=== PATIENT | male | born 1940 | race Caucasian/White ===

== ENCOUNTER → 2018-04-03 07:55 | Outpatient (CLI) | payer MEDICARE, BC, SELFPAY ==
--- NOTE | 2018-04-03 08:09 | RAD_ITS ---
STUDY: X-RAY - ESOPHAGUS (BARIUM SWALLOW) WITH FLUOROSCOPY REASON FOR EXAM: Male, 78 years old. 2 week history of dysphagia. The patient has a tracheostomy tube in situ. TECHNIQUE: 15 view(s) of the esophagus were obtained following swallowing of barium. FLUOROSCOPY TIME (if supplied): (0:57) minutes/seconds COMPARISON: None. FINDINGS: There is no demonstrated esophageal foreign body. There is no demonstrated stricture or mucosal abnormality. There is a small hiatal hernia of the fundus of the stomach. The patient was unable to swallow the 12 mm tablet of barium. There is atherosclerotic tortuosity of the aortic arch and descending thoracic aorta. Normal visualized pulmonary parenchyma. There are diffuse degenerative changes of the visualized thoracic spine. RAD/Esophagus Only IMPRESSION: Small hiatal hernia without gastroesophageal reflux. Electronically Signed: Gurinder De Jesus MD at 9:04 EST Tel [phone], Service support ,
--- NOTE | 2018-04-03 10:54 | PCM.OP.BLANK ---
Operative Report Date of Procedure: 04/03/18 Operative procedure excision cyst right epstein Preoperative diagnosis cyst right chin Operative diagnosis sebaceous cyst right chin Anesthesia 1% Xylocaine plain mixed with epinephrine Procedure the patient was placed supine on the operating room table. After the face had been prepped with Betadine solution sterile head drapes were applied and the patient draped in the usual sterile manner. The cyst was identified inferior to the right lower lip and measured 1.5 x 1.5 cm in dimension. Percent Xylocaine plain mixed with epinephrine was infiltrated around the lesion. A horizontal and elliptical incision was outlined over the lesion and skin and subcutaneous tissues were incised and the cyst was dissected free from the surrounding tissues. Bleeding was controlled with the Bovie. The subcutaneous tissues were approximated with interrupted sutures of 5-0 chromic catgut. The skin edges were approximated with interrupted sutures of 6-0 nylon. A meticulous closure was obtained. Triple antibiotic was applied over the incision site and the procedure was considered terminated. The patient was [facility] to the [facility] in satisfactory condition. Armando Gutierrez MD
--- NOTE | 2018-04-03 10:58 | OP.PCM_ITS ---
Operative Report Date of Procedure: 04/03/18 Operative procedure excision cyst right epstein Preoperative diagnosis cyst right chin Operative diagnosis sebaceous cyst right chin Anesthesia 1% Xylocaine plain mixed with epinephrine Procedure the patient was placed supine on the operating room table. After the face had been prepped with Betadine solution sterile head drapes were applied and the patient draped in the usual sterile manner. The cyst was identified inferior to the right lower lip and measured 1.5 x 1.5 cm in dimension. Percent Xylocaine plain mixed with epinephrine was infiltrated around the lesion. A horizontal and elliptical incision was outlined over the lesion and skin and subcutaneous tissues were incised and the cyst was dissected free from the surrounding tissues. Bleeding was controlled with the Bovie. The subcutaneous tissues were approximated with interrupted sutures of 5-0 chromic catgut. The skin edges were approximated with interrupted sutures of 6- 0 nylon. A meticulous closure was obtained. Triple antibiotic was applied over the incision site and the procedure was considered terminated. The patient was returned to the [facility] unit in satisfactory condition. Armando Gutierrez MD
== END ==
LOC: RAD 08:04
PROVIDERS: Family Provider Family Medicine; PCP Family Medicine; Referring Provider Otolaryngology Otolaryngology/Facial Plastic Surgery; Visit Provider Otolaryngology Otolaryngology/Facial Plastic Surgery
DX: K44.9 Diaphragmatic hernia without obstruction or gangrene (principal); R13.10 Dysphagia, unspecified
CPT/HCPCS: 74220

== ENCOUNTER → 2018-05-25 15:40 | Outpatient (CLI) | payer MEDICARE, BC, SELFPAY ==
[2016-08-18 18:22] VITALS: BMI 31.6
== END ==
PROVIDERS: Family Provider Family Medicine; PCP Family Medicine; Referring Provider Otolaryngology; Visit Provider Otolaryngology
DX: J40 Bronchitis, not specified as acute or chronic (principal)
CPT/HCPCS: 87070; 87077; 87186; 87205

== ENCOUNTER → 2018-06-19 11:01 | Outpatient (CLI) | payer MEDICARE, BC, SELFPAY ==
[2016-08-18 18:22] VITALS: BMI 31.6
--- NOTE | 2018-06-19 11:15 | RAD_ITS ---
STUDY: X-RAY CHEST REASON FOR EXAM: Male, 78 years old. Cough. TECHNIQUE: PA and lateral views of the chest. COMPARISON: Comparison is made with prior examination dated August 20, 2016. FINDINGS: Stable elevation of the left hemidiaphragm with pleural parenchymal changes at the left lung base. Scattered calcified granulomas. There is no demonstrated pleural abnormality. Normal size heart. Normal mediastinum and jevon. Normal visualized pulmonary arteries. There is atherosclerotic calcification of the aortic arch with tortuosity. There are diffuse degenerative changes of the visualized thoracic spine. Normal visualized ribs, clavicles, and shoulders. There is no demonstrated abnormality of the visualized soft tissue structures of the upper abdomen. RAD/Chest PA and Lateral IMPRESSION: Stable pleural parenchymal changes at the left lung base with elevation of the left hemidiaphragm. Electronically Signed: Gurinder De Jesus MD at 11:28 EST , Service support ,
== END ==
PROVIDERS: Family Provider Family Medicine; PCP Family Medicine; Referring Provider Otolaryngology Otolaryngology/Facial Plastic Surgery; Visit Provider Otolaryngology Otolaryngology/Facial Plastic Surgery
DX: R05 Cough (principal); Z90.02 Acquired absence of larynx
CPT/HCPCS: 71046; 87070; 87205

== ENCOUNTER 2018-06-28 05:08 | Emergency (ER) | payer MEDICARE, BC, SELFPAY ==
[2018-06-28] VITALS (7 sets, daily range): BP systolic 130–148; BP diastolic 89–101; PULSE 64–66; RESP 18–26; TEMP 37.2; O2SAT 88–95; BMI 31.6
--- NOTE | 2018-06-28 05:35 | EKG12_ITS ---
Test Reason : CP Blood Pressure : / mmHG Vent. Rate : 059 BPM Atrial Rate : 057 BPM P-R Int : 000 ms QRS Dur : 104 ms QT Int : 398 ms P-R-T Axes : 000 065 056 degrees QTc Int : 394 ms Atrial fibrillation with slow ventricular response Low voltage QRS Abnormal ECG Confirmed by KASSIDY DIETZ, AMBER ([id number]), video effects editor SAVANNAH OSBORNE ([id number]) on 07/03/2018 11:30:10 AM Referred By: RADHA Confirmed By:AMBER YI MD
--- NOTE | 2018-06-28 05:35 | RAD_ITS ---
STUDY: X-RAY CHEST REASON FOR EXAM: Male, 78 years old. Chest pain and shortness of breath. TECHNIQUE: PA and lateral views of the chest. COMPARISON: June 19, 2018 FINDINGS: Cardiac monitoring leads are present. The lungs are less expanded than they were. There is mild elevation of left hemidiaphragm. There is a persistent nodular opacity at the left lung base similar to the previous study. This nodule measures approximately 2.5 cm in greatest dimension. Bronchovascular markings are prominent in both lungs. There is no demonstrated pleural abnormality. There is borderline cardiomegaly. There are calcified mediastinal and hilar lymph nodes. There is prominence of the pulmonary hilar arteries without peripheral pulmonary vascular congestion, suggesting pulmonary hypertension. Normal visualized aortic arch and descending thoracic aorta. There are diffuse degenerative changes of the visualized thoracic spine. Normal visualized ribs, clavicles, and shoulders. There is no demonstrated abnormality of the visualized soft tissue structures of the upper abdomen. RAD/Chest PA and Lateral IMPRESSION: 1. Cardiomegaly and mild pulmonary congestion. 2. Persistent left basilar pulmonary nodule. Electronically Signed: Bozena Lentz MD at 6:30 EST , Service support ,
[2018-06-28 05:55] LABS: Absolute Lymphocyte Count 0.99 X10^3/ul (0.83-4.51); Absolute Neutrophil Count 5.9 X10^3/uL (2.0-7.7); Basophil# 0.01 X10^3/uL; Basophil% 0.1 % (0-1); Eosinophil# 0.03 X10^3/uL; Eosinophils% 0.4 % (0-5); Hematocrit 42.3 % (40-54); Hemoglobin 14.8 g/dl (13.0-16.5); Lymphocyte # 0.99 X10^3/ul (4.0); Lymphocyte % 12.8 % (19-41); Mean Corpuscular Hgb 33.7 pg (27.0-32.0); Mean Corpuscular Volume 96.4 fL (80-94); Mean Platelet Vol. 12.5 fl (6.2-12.0); Monocyte# 0.74 X10^3/uL; Monocyte% 9.6 % (0-10); Neutrophil # 5.93 X10^3/uL (2.7-7.7); Neutrophil % 76.8 % (47-70); Platelet Count 119 K/mm3 (150-450); RBC Distribution Width CV 13.4 % (11.6-14.6); RBC Distribution Width SD 46.3 fl (35.1-43.9); Red Blood Count 4.39 M/mm3 (4.6-6.2); White Blood Count 7.7 K/mm3 (4.4-11.0)
[2018-06-28] MEDS: Albuterol 2.5 MG/3 ML VIAL.NEB. INHALATION (06:00)
[2018-06-28] MEDS: Ipratropium/Albuterol Sulfate 3 ML AMPUL.NEB INHALATION (06:00)
[2018-06-28 06:02] LABS: POSITIVE COUNT NO; POSITIVE DIFFERENTIAL NO; POSITIVE MORPHOLOGY NO
[2018-06-28 06:06] LABS: Anion Gap 12 (5-15); BUN 44 mg/dL (7-18); BUN/Creat Ratio 41.5 RATIO (10-20); Calcium,Total 9.9 mg/dL (8.5-10.1); Chloride 98 mmol/L (98-107); Creatinine, Serum 1.06 mg/dL (0.70-1.30); EST Glomerular Filtration Rate 71 mL/min (>60); Est Glom Filt Rate - Afr Amer 86 mL/min (>60); Estimated Creatinine Clearance 61.01 ml/min; Glucose 127 mg/dL (74-106); Potassium 4.6 mmol/L (3.5-5.1); Sodium Level 134 mmol/L (136-145)
[2018-06-28] MEDS: MethylPREDNISolone 125 MG/2 ML Vial IV (06:07)
--- NOTE | 2018-06-28 06:40 | ED.DCSUM_ITS ---
- ER Visit Summary Date of Service: 06/28/18 Chief Complaint: Chest pain History of Present Illness: The patient is a 78 M who presents with chest pain. It began yesterday. He describes it as a burning mostly on the left side of the chest. He currently rates it as at 8. His pain is worse with coughing or palpation. He does note a chronic cough. He states he feels a little short of breath. This feels similar to episodes of bronchitis. No diabetes. He is not a smoker currently. He does have a history of throat cancer and is status post laryngectomy with tracheostomy. No diaphoresis no nausea or vomiting. Physical Examination: Respiratory rate 26 vitals otherwise unremarkable No distress resting comfortably Moist mucous membranes Heart regular rhythm tachycardia Decreased air exchange with diffuse inspiratory and expiratory wheezing Test Results: Atrial fibrillation at a rate of 59. Labs notable only for platelets 119. BUN is 44 with a glucose of 127. Troponin is negative. Chest x-ray shows cardiomegaly with mild pulmonary congestion. Emergency Department Course and Treatment: Patient was given albuterol and Atrovent aerosols as well as IV Solu-Medrol. He actually feels much better on reevaluation. Pain is resolved. I suspect this is all related to bronchitis and chest wall pain related to cough and may be a component of pleurisy. He will be placed on prednisone. He understands to return for new or worsening symptoms. His heart score is 3. Treatment Plan: [] Disposition: Discharge Impression: Bronchitis Atypical chest pain This note was generated with [employer] dictation software. It may contain incorrect words, spelling, and punctuation that were not noted in review of the chart prior to signing ED Disposition - Plan for ED Patient: Referrals: Nav Mejia MD [Primary Care Provider] -
--- NOTE | 2018-06-28 06:40 | ED.DEP ---
ED Disposition - Plan for ED Patient: Instructions: Acute Bronchitis, ED Chest Pain Atypical Unkn Cause Prescriptions: predniSONE tablet 60 mg PO DAILY #15 tab Referrals: Nav Mejia MD [Primary Care Provider] -
== END 2018-06-28 09:04 | disposition home or self-care (01) ==
PROVIDERS: Emergency Provider Emergency Medicine; Family Provider Family Medicine; PCP Family Medicine
DX: J40 Bronchitis, not specified as acute or chronic (principal); R07.89 Other chest pain; Z93.0 Tracheostomy status; Z85.818 Personal history of malignant neoplasm of other sites of lip, oral cavity, and pharynx; Z87.891 Personal history of nicotine dependence; Z79.899 Other long term (current) drug therapy
CPT/HCPCS: 71046; 80048; 84484; 85025; 93005; 94640; 96374; 99285; J7030; A4216

== ENCOUNTER 2018-09-07 10:13 | Emergency (ER) | payer MEDICARE, BC, SELFPAY ==
[2018-06-28 05:09] VITALS: BMI 31.6
[2018-09-07 10:15] VITALS: BP 175/92; PULSE 65; RESP 18; TEMP 36.7; O2SAT 96; BMI 30.2
--- NOTE | 2018-09-07 10:31 | RAD_ITS ---
STUDY: X-RAY - LEFT ELBOW REASON FOR EXAM: Male, 78 years old. Pain. Swelling. Fall. TECHNIQUE: 3 view(s) of the elbow. COMPARISON: None. FINDINGS: Left elbow intact with chronic slightly displaced bone fragment at the medial epicondyle. Spurring at the lateral upper condyle. No dislocation. No acute cortical destruction. Soft tissue laceration with soft tissue gas. Linear radiopaque foreign body at the lateral soft tissues measuring 4 mm. Extensive soft tissue swelling posteriorly. Small volume elbow joint effusion. RAD/Elbow min 3 Views IMPRESSION: Soft tissue laceration with soft tissue gas, extensive soft tissue swelling and small volume joint effusion Left elbow are intact with chronic slightly displaced bone fragment at the medial epicondyle Lateral epicondyle spurring Electronically Signed: Vinicio Dixon DO at 12:08 EDT Tel , Service support ,
--- NOTE | 2018-09-07 10:32 | ED.VIS.GEN ---
History of Present Illness Chief Complaint: Fall Informant: Patient, PCP Onset: Today Context: Sudden Onset Timing: Continuous Quality: Pain, redness and swelling Location: Left elbow Current Severity: Mild Maximum Severity: Moderate Worsened by: Movement and palpation Relieved by: Nothing Associated Symptoms: No constitutional symptoms Narrative: Patient is an elderly miigh-[id number]-pmnfqejm male who fell Monday evening. He landed on ceramic tile. He sustained a laceration over the left elbow. He was seen yesterday at the [facility] urgent care and sutured by physician. He was concerned because tetanus was not administered. Last tetanus shot was 2011. He returns today because of redness, swelling and pain. He was prescribed cephalexin. Patient and family acknowledge no x-rays were taken. He also reports pain left wrist. Prior similar symptoms: Yes Recent Illness/Hospitalization: Yes - Past Medical History (1) Alcohol dependence Status: Chronic Comment: beer daily (2) COPD (chronic obstructive pulmonary disease) Status: Chronic (3) HLD (hyperlipidemia) Status: Chronic (4) HTN (hypertension) Status: Chronic (5) PVD (peripheral vascular disease) Status: Chronic Past Medical History - Allergies and Home Meds Allergies/Adverse Reactions: Allergies UNSURE OF ALLERGIES Allergy (Uncoded 09/07/18 10:15) Unknown Primary Care Physician: Nav Mejia MD [Primary Care Provider] - Prior records reviewed: Yes Surgical History: - - Normal aortic aneurysm repair, 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 He denies any family history of cardiovascular disease. Paternal Family History: Reports: Cancer - Father of lung cancer Review of Systems General: Denies: Chills, Fever, Malaise, Sweats, Weight loss Eyes: Denies: Visual changes - bilaterally, Blurred Vision - bilaterally, Diplopia ENT: Denies: Bilateral ear pain, Rhinorrhea, Sore throat Cardiovascular: Denies: Chest pain, Palpitations, Heart racing Respiratory: Denies: Dyspnea, Cough, Dyspnea on exertion Gastrointestinal: Reports: Abdominal pain, Nausea, Vomiting Genitourinary: Denies: Dysuria, Hematuria, Frequency Musculoskeletal: Reports: Myalgias, Extremity Pain Skin: Reports: Rash, Wounds Neurological: Denies: Headache, Weakness, Parasthesia, Numbness Endocrine: Denies: Polyuria, Polydipsia Hematologic: Denies: Easy bruising, Easy bleeding Allergy: Denies: Uticaria, Swelling of the mouth, Swelling of the tongue Physical Exam Vital Signs/Narrative: Vital Signs Temp Pulse Resp BP Pulse Ox 09/07/18 10:15 98.1 F 65 18 175/92 H 96 Inital Vital Signs reviewed: Yes General: Well nourished, Well developed, No Acute Distress Head: Normocephalic, Atraumatic Eyes: Perrl, EOMI ENT: Moist mucous membranes, No rhinorrhea Neck: Supple, Nontender Cardiovascular: Regular rate, Regular rhythm, No murmurs Respiratory: No distress, CTA bilaterally, Chest nontender Back: Nontender, Normal Inspection Extremities: Nontender, No edema Skin: Normal color, No rash Neurological: Alert, Oriented x3, Cranial nerves II-XII grossly intact, Normal Strength, Normal Sensation Psychological: Normal affect, Normal Mood Diagnostic/Tx/Re-eval Chest X-Ray - ED: 2 View, Read by ED Physician Three-view x-ray of the elbow reveals no acute fracture. There is subcutaneous air noted from the laceration. No foreign bodies noted. There is no hematoma noted. Impressions Elbow X-Ray 09/07/18 10:31 IMPRESSION: Soft tissue laceration with soft tissue gas, extensive soft tissue swelling and small volume joint effusion Left elbow are intact with chronic slightly displaced bone fragment at the medial epicondyle Lateral epicondyle spurring Electronically Signed: Vinicio Dixon DO at 12:08 EDT Tel , Service support , 09/07/18 10:31 Elbow min 3 Views [RAD] Stat 09/07/18 11:05 Wound Abcess - Elbow Gram Stain - Final Laboratory Results 09/07/18 09/07/18 10:43 10:43 WBC 13.4 H RBC 4.77 Hgb 16.0 Hct 45.4 MCV 95.2 H MCH 33.5 H MCHC 35.2 RDW 13.8 RDW Differential 47.8 H Plt Count 113 L MPV 11.9 Immature Gran % (Auto) 0.400 Neut % (Auto) 77.3 H Lymph % (Auto) 8.3 L [place] % (Auto) 13.7 H Eos % (Auto) 0.2 Baso % (Auto) 0.1 Absolute Neuts (auto) 10.3 H Absolute Lymphs (auto) 1.11 Total Counted Not Reportable Differential Comment COMMENT Diff Path Review Reviewed Sodium 134 L Potassium 3.8 Chloride 98 Carbon Dioxide 28.0 Anion Gap 8 BUN 24 H Creatinine 1.09 Estim Creat Clear Calc 59.33 Est GFR (MDRD) Af Amer 84 Est GFR (MDRD) Non-Af 69 BUN/Creatinine Ratio 22.0 H Glucose 141 H Calcium 8.9 - Medical Decision Making The wound was opened with slightly cloudy fluid noted most likely from the olecranon bursa. There is evidence of cellulitis. There is no lymphangitis. There is no axillary lymphadenopathy noted. We will obtain blood work to determine patient meets sepsis criteria. X-ray was obtained to evaluate for foreign body. Procedures Procedure(s): Sutures were removed. The wound was opened. Serous cloudy fluid/bursa fluid flowed freely from wound. The area was anesthetized. The edges which were contused and discolored was excised. The cavity was irrigated with 250 cc of normal saline. Wick was placed. Patient is present cephalexin. Will add Bactrim for better staph coverage. Dressing was applied per nursing staff. ED Disposition - Plan for ED Patient: Disposition: Home or Assisted Living Diagnosis: Cellulitis of left elbow, Olecranon bursitis of left elbow Instructions: ED Infec Skin Cellulitis Prescriptions: Smz/Tmp Ds [Bactrim Ds] 1 tablet PO BID #14 tablet Referrals: Nav Mejia MD [Primary Care Provider] - Additional Instructions: 1. Do not remove dressing until seen on Monday. 2. Continue taking cephalexin. You were prescribed an additional antibiotic. 3. Your prescription was electronically transmitted to your designated pharmacy of choice.
--- NOTE | 2018-09-07 10:37 | ED.DCSUM_ITS ---
History of Present Illness Chief Complaint: Fall Informant: Patient, PCP Onset: Today Context: Sudden Onset Timing: Continuous Quality: Pain, redness and swelling Location: Left elbow Current Severity: Mild Maximum Severity: Moderate Worsened by: Movement and palpation Relieved by: Nothing Associated Symptoms: No constitutional symptoms Narrative: Patient is an elderly xviye-foou-djtemkys male who fell Monday evening. He landed on ceramic tile. He sustained a laceration over the left elbow. He was seen yesterday at the [facility] urgent care and sutured by physician. He was concerned because tetanus was not administered. Last tetanus shot was 2011. He returns today because of redness, swelling and pain. He was prescribed cephalexin. Patient and family acknowledge no x-rays were taken. He also reports pain left wrist. Prior similar symptoms: Yes Recent Illness/Hospitalization: Yes - Past Medical History (1) Alcohol dependence Status: Chronic Comment: beer daily (2) COPD (chronic obstructive pulmonary disease) Status: Chronic (3) HLD (hyperlipidemia) Status: Chronic (4) HTN (hypertension) Status: Chronic (5) PVD (peripheral vascular disease) Status: Chronic Past Medical History - Allergies and Home Meds Allergies/Adverse Reactions: Allergies UNSURE OF ALLERGIES Allergy (Uncoded 09/07/18 10:15) Unknown Primary Care Physician: Nav Mejia MD [Primary Care Provider] - Prior records reviewed: Yes Surgical History: - - Normal aortic aneurysm repair, 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 He denies any family history of cardiovascular disease. Paternal Family History: Reports: Cancer - Father of lung cancer Review of Systems General: Denies: Chills, Fever, Malaise, Sweats, Weight loss Eyes: Denies: Visual changes - bilaterally, Blurred Vision - bilaterally, Diplopia ENT: Denies: Bilateral ear pain, Rhinorrhea, Sore throat Cardiovascular: Denies: Chest pain, Palpitations, Heart racing Respiratory: Denies: Dyspnea, Cough, Dyspnea on exertion Gastrointestinal: Reports: Abdominal pain, Nausea, Vomiting Genitourinary: Denies: Dysuria, Hematuria, Frequency Musculoskeletal: Reports: Myalgias, Extremity Pain Skin: Reports: Rash, Wounds Neurological: Denies: Headache, Weakness, Parasthesia, Numbness Endocrine: Denies: Polyuria, Polydipsia Hematologic: Denies: Easy bruising, Easy bleeding Allergy: Denies: Uticaria, Swelling of the mouth, Swelling of the tongue Physical Exam Vital Signs/Narrative: Vital Signs Temp Pulse Resp BP Pulse Ox 09/07/18 10:15 98.1 F 65 18 175/92 H 96 Inital Vital Signs reviewed: Yes General: Well nourished, Well developed, No Acute Distress Head: Normocephalic, Atraumatic Eyes: Perrl, EOMI ENT: Moist mucous membranes, No rhinorrhea Neck: Supple, Nontender Cardiovascular: Regular rate, Regular rhythm, No murmurs Respiratory: No distress, CTA bilaterally, Chest nontender Back: Nontender, Normal Inspection Extremities: Nontender, No edema Skin: Normal color, No rash Neurological: Alert, Oriented x3, Cranial nerves II-XII grossly intact, Normal Strength, Normal Sensation Psychological: Normal affect, Normal Mood Diagnostic/Tx/Re-eval Chest X-Ray - ED: 2 View, Read by ED Physician Three-view x-ray of the elbow reveals no acute fracture. There is subcutaneous air noted from the laceration. No foreign bodies noted. There is no hematoma noted. Impressions Elbow X-Ray 09/07/18 10:31 IMPRESSION: Soft tissue laceration with soft tissue gas, extensive soft tissue swelling and small volume joint effusion Left elbow are intact with chronic slightly displaced bone fragment at the medial epicondyle Lateral epicondyle spurring Electronically Signed: Vinicio Dixon DO at 12:08 EDT Tel , Service support , 09/07/18 10:31 Elbow min 3 Views [RAD] Stat 09/07/18 11:05 Wound Abcess - Elbow Gram Stain - Final Laboratory Results 09/07/18 09/07/18 10:43 10:43 WBC 13.4 H RBC 4.77 Hgb 16.0 Hct 45.4 MCV 95.2 H MCH 33.5 H MCHC 35.2 RDW 13.8 RDW Differential 47.8 H Plt Count 113 L MPV 11.9 Immature Gran % (Auto) 0.400 Neut % (Auto) 77.3 H Lymph % (Auto) 8.3 L [place] % (Auto) 13.7 H Eos % (Auto) 0.2 Baso % (Auto) 0.1 Absolute Neuts (auto) 10.3 H Absolute Lymphs (auto) 1.11 Total Counted Not Reportable Differential Comment COMMENT Diff Path Review Reviewed Sodium 134 L Potassium 3.8 Chloride 98 Carbon Dioxide 28.0 Anion Gap 8 BUN 24 H Creatinine 1.09 Estim Creat Clear Calc 59.33 Est GFR (MDRD) Af Amer 84 Est GFR (MDRD) Non-Af 69 BUN/Creatinine Ratio 22.0 H Glucose 141 H Calcium 8.9 - Medical Decision Making The wound was opened with slightly cloudy fluid noted most likely from the olecranon bursa. There is evidence of cellulitis. There is no lymphangitis. There is no axillary lymphadenopathy noted. We will obtain blood work to determine patient meets sepsis criteria. X-ray was obtained to evaluate for foreign body. Procedures Procedure(s): Sutures were removed. The wound was opened. Serous cloudy fluid/bursa fluid flowed freely from wound. The area was anesthetized. The edges which were contused and discolored was excised. The cavity was irrigated with 250 cc of normal saline. Wick was placed. Patient is present cephalexin. Will add Bactrim for better staph coverage. Dressing was applied per nursing staff. ED Disposition - Plan for ED Patient: Disposition: Home or Assisted Living Diagnosis: Cellulitis of left elbow, Olecranon bursitis of left elbow Instructions: ED Infec Skin Cellulitis Prescriptions: Smz/Tmp Ds [Bactrim Ds] 1 tablet PO BID #14 tablet Referrals: Nav Mejia MD [Primary Care Provider] - Additional Instructions: 1. Do not remove dressing until seen on Monday. 2. Continue taking cephalexin. You were prescribed an additional antibiotic. 3. Your prescription was electronically transmitted to your designated pharmacy of choice.
[2018-09-07 10:52] LABS: Absolute Lymphocyte Count 1.11 X10^3/ul (0.83-4.51); Absolute Neutrophil Count 10.3 X10^3/uL (2.0-7.7); Basophil# 0.01 X10^3/uL; Basophil% 0.1 % (0-1); Differential Indicated SCAN CRITERIA MET; Eosinophil# 0.03 X10^3/uL; Eosinophils% 0.2 % (0-5); Hematocrit 45.4 % (40-54); Lymphocyte # 1.11 X10^3/ul (4.0); Lymphocyte % 8.3 % (19-41); Mean Corp Hgb Conc 35.2 g/gl (32-36); Mean Corpuscular Hgb 33.5 pg (27.0-32.0); Mean Corpuscular Volume 95.2 fL (80-94); Mean Platelet Vol. 11.9 fl (6.2-12.0); Monocyte# 1.83 X10^3/uL; Monocyte% 13.7 % (0-10); Neutrophil # 10.33 X10^3/uL (2.7-7.7); Neutrophil % 77.3 % (47-70); POSITIVE COUNT NO; POSITIVE DIFFERENTIAL YES; POSITIVE MORPHOLOGY NO; Platelet Count 113 K/mm3 (150-450); RBC Distribution Width CV 13.8 % (11.6-14.6); RBC Distribution Width SD 47.8 fl (35.1-43.9); Red Blood Count 4.77 M/mm3 (4.6-6.2); White Blood Count 13.4 K/mm3 (4.4-11.0)
[2018-09-07 11:03] LABS: Anion Gap 8 (5-15); BUN 24 mg/dL (7-18); Calcium,Total 8.9 mg/dL (8.5-10.1); Chloride 98 mmol/L (98-107); Creatinine, Serum 1.09 mg/dL (0.70-1.30); EST Glomerular Filtration Rate 69 mL/min (>60); Est Glom Filt Rate - Afr Amer 84 mL/min (>60); Estimated Creatinine Clearance 59.33 ml/min; Glucose 141 mg/dL (74-106); Potassium 3.8 mmol/L (3.5-5.1); Sodium Level 134 mmol/L (136-145)
[2018-09-07 13:53] VITALS: BP 198/106; PULSE 59; RESP 18; O2SAT 96
[2018-09-07 14:16] LABS: Pathologist Review Reviewed
[2018-09-07 14:48] VITALS: BP 168/98; PULSE 62; RESP 16; O2SAT 97
== END 2018-09-07 14:49 | disposition home or self-care (01) ==
PROVIDERS: Emergency Provider Emergency Medicine; Family Provider Family Medicine; PCP Family Medicine
DX: L03.114 Cellulitis of left upper limb (principal); M71.122 Other infective bursitis, left elbow; I10 Essential (primary) hypertension; I73.9 Peripheral vascular disease, unspecified; J44.9 Chronic obstructive pulmonary disease, unspecified; E78.5 Hyperlipidemia, unspecified; F10.20 Alcohol dependence, uncomplicated
CPT/HCPCS: 23931; 73080; 80048; 85025; 87070; 87077; 87205; 99283; A4216

== ENCOUNTER 2018-09-09 11:01 | Inpatient (IN) | payer MEDICARE, BC, SELFPAY ==
[2018-09-09] VITALS (7 sets, daily range): BP systolic 129–150; BP diastolic 64–80; PULSE 60–92; RESP 18–20; TEMP 36.8–37.6; O2SAT 95–99; BMI 30.2; BMI 29.1; BMI 29.2
--- NOTE | 2018-09-09 11:10 | ED.VIS.GEN ---
History of Present Illness Chief Complaint: Wound Check Informant: Patient, Family Onset: - - Initial injury Monday. Laceration repaired at urgent care. Patient seen on Monday. The wound was debrided with blunt dissection and wick placed. Patient was on cephalexin. Bactrim was added. Patient reports compliance with medication and home-going instructions. Context: Sudden Onset Timing: Continuous Quality: Cellulitis left upper extremity Location: Hand, wrist, forearm and elbow Current Severity: Moderate Maximum Severity: Moderate Worsened by: Failed appropriate outpatient treatment Relieved by: Nothing Associated Symptoms: Subjective fever Narrative: Patient seen on Monday. Please review note from Monday. Also review documentation under timing portion of the chart. Patient is unable to speak secondary laryngectomy. He is very hard of hearing. Prior similar symptoms: Yes Recent Illness/Hospitalization: Yes - Past Medical History (1) Alcohol dependence Status: Chronic Comment: beer daily (2) COPD (chronic obstructive pulmonary disease) Status: Chronic (3) Depression Status: Chronic (4) HLD (hyperlipidemia) Status: Chronic (5) HTN (hypertension) Status: Chronic (6) History of abdominal aortic aneurysm repair Status: Chronic (7) History of laryngeal cancer Status: Chronic Comment: had surgery with a tracheostomy in 1994 (8) History of tracheostomy Status: Chronic (9) PVD (peripheral vascular disease) Status: Chronic Past Medical History - Allergies and Home Meds Allergies/Adverse Reactions: Allergies UNSURE OF ALLERGIES Allergy (Uncoded 09/07/18 10:15) Unknown Primary Care Physician: Nav Mejia MD [Primary Care Provider] - Prior records reviewed: Yes - Prior ER visit Surgical History: - - Normal aortic aneurysm repair, laryngectomy with tracheostomy for history of laryngeal cancer in 1994, Lives: With Family - Patient is Smoking Status: Never smoker Drugs: None - Family History Maternal Family History: Reports: Cancer - His mother of cancer of the uterus. He denies any family history of cardiovascular disease. Paternal Family History: Reports: Cancer - Father of lung cancer Review of Systems General: Reports: Fever, Subjective. Denies: Chills, Malaise, Sweats, Weight loss Musculoskeletal: Reports: Swelling - There is swelling of the left upper extremity involving the digits, hand and forearm. This is new since Monday.. Denies: Myalgias, Arthralgias, Neck pain, Back pain, Extremity Pain Skin: Reports: Rash - Rash extended behind demarcated area, Wounds Hematologic: Denies: Easy bruising, Easy bleeding Allergy: Denies: Uticaria Physical Exam Vital Signs/Narrative: Vital Signs Temp Pulse Resp BP Pulse Ox 09/09/18 11:03 99.0 F 68 18 144/70 H 99 Inital Vital Signs reviewed: Yes General: Well nourished, Well developed, No Acute Distress Head: Normocephalic, Atraumatic Eyes: Perrl, EOMI ENT: Moist mucous membranes, No rhinorrhea Neck: Supple, Nontender Cardiovascular: Regular rate, Regular rhythm, No murmurs, Normal S1, Normal S2 Respiratory: No distress, CTA bilaterally, Chest nontender Abdomen: Soft, Nontender, Nondistended, Normal bowel sounds, No masses Back: Nontender, Normal Inspection Extremities: Nontender, Edema, - - There is lymph edema of the left upper extremity. There is extension of the cellulitis. Wick is in place. The wound is open. Skin: Normal color, Rash. Negative for: Cyanosis, Jaundice Neurological: Alert, Oriented x3, Cranial nerves II-XII grossly intact, Normal Strength, Normal Sensation Psychological: Normal affect, Normal Mood Diagnostic/Tx/Re-eval Laboratory Results 09/09/18 09/09/18 09/09/18 11:45 11:45 11:45 WBC 12.9 H RBC 4.33 L Hgb 14.4 Hct 41.5 MCV 95.8 H MCH 33.3 H MCHC 34.7 RDW 13.8 RDW Differential 48.5 H Plt Count 121 L MPV 11.5 Immature Gran % (Auto) 0.200 Neut % (Auto) 80.1 H Lymph % (Auto) 7.8 L Edmunds % (Auto) 11.4 H Eos % (Auto) 0.3 Baso % (Auto) 0.2 Absolute Neuts (auto) 10.4 H Absolute Lymphs (auto) 1.01 Total Counted Not Reportable Sodium 133 L Potassium 3.6 Chloride 97 L Carbon Dioxide 30.0 Anion Gap 6 BUN 29 H Creatinine 1.24 Estim Creat Clear Calc 52.15 Est GFR (MDRD) Af Amer 72 Est GFR (MDRD) Non-Af 60 BUN/Creatinine Ratio 23.4 H Glucose 96 Lactic Acid 1.8 Calcium 8.9 - Medical Decision Making Patient returns for wound reevaluation. Cellulitis has gotten worse in spite of appropriate outpatient therapy. Patient was informed he will require admission. Blood work was obtained to determine if patient has sepsis versus severe sepsis. If there is evidence of severe sepsis we will obtain blood cultures prior to her menstruation IV antibiotics. He does not appear toxic. X-rays were obtained on Monday and will not be repeated. We will compare today's results to Fridays. Wound culture obtained on Monday is positive for staph aureus and group C Streptococcus. Once lactate returns we will either order blood cultures if lactate greater than 2 or will treat with vancomycin for strep and staph coverage. ED Disposition - Plan for ED Patient: Disposition: Acute Care [facility] Diagnosis: Cellulitis of left upper extremity, Staph aureus infection, Streptococcus infection, group C Referrals: Nav Mejia MD [Primary Care Provider] -
--- NOTE | 2018-09-09 11:15 | ED.DCSUM_ITS ---
History of Present Illness Chief Complaint: Wound Check Informant: Patient, Family Onset: - - Initial injury Monday. Laceration repaired at urgent care. Patient seen on Monday. The wound was debrided with blunt dissection and wick placed. Patient was on cephalexin. Bactrim was added. Patient reports compliance with medication and home-going instructions. Context: Sudden Onset Timing: Continuous Quality: Cellulitis left upper extremity Location: Hand, wrist, forearm and elbow Current Severity: Moderate Maximum Severity: Moderate Worsened by: Failed appropriate outpatient treatment Relieved by: Nothing Associated Symptoms: Subjective fever Narrative: Patient seen on Monday. Please review note from Monday. Also review documentation under timing portion of the chart. Patient is unable to speak secondary laryngectomy. He is very hard of hearing. Prior similar symptoms: Yes Recent Illness/Hospitalization: Yes - Past Medical History (1) Alcohol dependence Status: Chronic Comment: beer daily (2) COPD (chronic obstructive pulmonary disease) Status: Chronic (3) Depression Status: Chronic (4) HLD (hyperlipidemia) Status: Chronic (5) HTN (hypertension) Status: Chronic (6) History of abdominal aortic aneurysm repair Status: Chronic (7) History of laryngeal cancer Status: Chronic Comment: had surgery with a tracheostomy in 1994 (8) History of tracheostomy Status: Chronic (9) PVD (peripheral vascular disease) Status: Chronic Past Medical History - Allergies and Home Meds Allergies/Adverse Reactions: Allergies UNSURE OF ALLERGIES Allergy (Uncoded 09/07/18 10:15) Unknown Primary Care Physician: Nav Mejia MD [Primary Care Provider] - Prior records reviewed: Yes - Prior ER visit Surgical History: - - Normal aortic aneurysm repair, laryngectomy with tracheostomy for history of laryngeal cancer in 1994, Lives: With Family - Patient is Smoking Status: Never smoker Drugs: None - Family History Maternal Family History: Reports: Cancer - His mother of cancer of the uterus. He denies any family history of cardiovascular disease. Paternal Family History: Reports: Cancer - Father of lung cancer Review of Systems General: Reports: Fever, Subjective. Denies: Chills, Malaise, Sweats, Weight loss Musculoskeletal: Reports: Swelling - There is swelling of the left upper extremity involving the digits, hand and forearm. This is new since Monday.. Denies: Myalgias, Arthralgias, Neck pain, Back pain, Extremity Pain Skin: Reports: Rash - Rash extended behind demarcated area, Wounds Hematologic: Denies: Easy bruising, Easy bleeding Allergy: Denies: Uticaria Physical Exam Vital Signs/Narrative: Vital Signs Temp Pulse Resp BP Pulse Ox 09/09/18 11:03 99.0 F 68 18 144/70 H 99 Inital Vital Signs reviewed: Yes General: Well nourished, Well developed, No Acute Distress Head: Normocephalic, Atraumatic Eyes: Perrl, EOMI ENT: Moist mucous membranes, No rhinorrhea Neck: Supple, Nontender Cardiovascular: Regular rate, Regular rhythm, No murmurs, Normal S1, Normal S2 Respiratory: No distress, CTA bilaterally, Chest nontender Abdomen: Soft, Nontender, Nondistended, Normal bowel sounds, No masses Back: Nontender, Normal Inspection Extremities: Nontender, Edema, - - There is lymph edema of the left upper extremity. There is extension of the cellulitis. Wick is in place. The wound is open. Skin: Normal color, Rash. Negative for: Cyanosis, Jaundice Neurological: Alert, Oriented x3, Cranial nerves II-XII grossly intact, Normal Strength, Normal Sensation Psychological: Normal affect, Normal Mood Diagnostic/Tx/Re-eval - Medical Decision Making Patient returns for wound reevaluation. Cellulitis has gotten worse in spite of appropriate outpatient therapy. Patient was informed he will require admission. Blood work was obtained to determine if patient has sepsis versus severe sepsis. If there is evidence of severe sepsis we will obtain blood cultures prior to her menstruation IV antibiotics. He does not appear toxic. X-rays were obtained on Monday and will not be repeated. We will compare today's results to Fridays. Wound culture obtained on Monday is positive for staph aureus and group C Streptococcus. Once lactate returns we will either order blood cultures if lactate greater than 2 or will treat with vancomycin for strep and staph coverage. ED Disposition - Plan for ED Patient: Referrals: Nav Mejia MD [Primary Care Provider] -
[2018-09-09 11:57] LABS: Absolute Lymphocyte Count 1.01 X10^3/ul (0.83-4.51); Absolute Neutrophil Count 10.4 X10^3/uL (2.0-7.7); Basophil# 0.02 X10^3/uL; Basophil% 0.2 % (0-1); Eosinophil# 0.04 X10^3/uL; Eosinophils% 0.3 % (0-5); Hematocrit 41.5 % (40-54); Hemoglobin 14.4 g/dl (13.0-16.5); Lymphocyte # 1.01 X10^3/ul (4.0); Lymphocyte % 7.8 % (19-41); Mean Corp Hgb Conc 34.7 g/gl (32-36); Mean Corpuscular Hgb 33.3 pg (27.0-32.0); Mean Corpuscular Volume 95.8 fL (80-94); Mean Platelet Vol. 11.5 fl (6.2-12.0); Monocyte# 1.47 X10^3/uL; Monocyte% 11.4 % (0-10); Neutrophil # 10.35 X10^3/uL (2.7-7.7); Neutrophil % 80.1 % (47-70); POSITIVE COUNT NO; POSITIVE DIFFERENTIAL NO; POSITIVE MORPHOLOGY NO; Platelet Count 121 K/mm3 (150-450); RBC Distribution Width CV 13.8 % (11.6-14.6); RBC Distribution Width SD 48.5 fl (35.1-43.9); Red Blood Count 4.33 M/mm3 (4.6-6.2); White Blood Count 12.9 K/mm3 (4.4-11.0)
[2018-09-09 12:10] LABS: Anion Gap 6 (5-15); BUN 29 mg/dL (7-18); BUN/Creat Ratio 23.4 RATIO (10-20); Calcium,Total 8.9 mg/dL (8.5-10.1); Chloride 97 mmol/L (98-107); Creatinine, Serum 1.24 mg/dL (0.70-1.30); EST Glomerular Filtration Rate 60 mL/min (>60); Est Glom Filt Rate - Afr Amer 72 mL/min (>60); Estimated Creatinine Clearance 52.15 ml/min; Glucose 96 mg/dL (74-106); Potassium 3.6 mmol/L (3.5-5.1); Sodium Level 133 mmol/L (136-145)
[2018-09-09 12:19] LABS: Lactic Acid 1.8 mmol/L (0.4-2.0)
--- NOTE | 2018-09-09 12:32 | HP.PCM_ITS ---
Problem List (1) Cellulitis of left upper extremity Status: Acute (2) Staph aureus infection Status: Acute (3) Streptococcus infection, group C Status: Acute (4) Cough Status: Chronic (5) Dehydration Status: Resolved (6) Hyperkalemia Status: Resolved (7) Hypomagnesemia Status: Resolved (8) Hyponatremia Status: Resolved (9) SOB (shortness of breath) Status: Resolved (10) Alcohol dependence Status: Chronic Comment: beer daily (11) COPD (chronic obstructive pulmonary disease) Status: Chronic (12) Carotid artery bruit Status: Chronic Comment: BL, L>R (13) Depression Status: Chronic (14) Erectile dysfunction Status: Chronic (15) HLD (hyperlipidemia) Status: Chronic (16) HTN (hypertension) Status: Chronic (17) History of abdominal aortic aneurysm repair Status: Chronic (18) History of laryngeal cancer Status: Chronic Comment: had surgery with a tracheostomy in 1994 (19) History of nephrolithiasis Status: Chronic (20) History of tracheostomy Status: Chronic (21) PVD (peripheral vascular disease) Status: Chronic (22) Claudication Status: Suspected History of Present Illness Date of Admission: 09/09/18 Chief Complaint: Left upper extremity swelling with discharge from the elbow The patient is a 78 year old M who presented to the emergency department with swelling and redness involving the left upper extremities discharge from elbow. Patient had apparently sustained a fall on 09/06/2018. Patient was apparently seen at an urgent care center he had a laceration involving the left elbow which was sutured. Patient did notice increasing swelling involving the almost the entire left upper extremity with significant discharge from his wound. Seen in the emergency department his sutures were removed found to have purulent discharge sent for cultures wound debrided antibiotics initiated per protocol and patient admitted to regular nursing floor for further management Past Medical History Past Medical History (Chronic Problems): Chronic Problems Depression (Chronic) Erectile dysfunction (Chronic) Alcohol dependence (Chronic) beer daily HTN (hypertension) (Chronic) COPD (chronic obstructive pulmonary disease) (Chronic) Cough (Chronic) History of tracheostomy (Chronic) History of laryngeal cancer (Chronic) had surgery with a tracheostomy in 1994 History of nephrolithiasis (Chronic) History of abdominal aortic aneurysm repair (Chronic) PVD (peripheral vascular disease) (Chronic) Carotid artery bruit (Chronic) BL, L>R HLD (hyperlipidemia) (Chronic) Allergies UNSURE OF ALLERGIES Allergy (Uncoded 09/07/18 10:15) Unknown Home Medications: Ambulatory Orders Medication Instructions Recorded Albuterol Sulfate [Ventolin Hfa] 2 puff INHALATION Q4H PRN 08/18/16 Aspirin [Aspir-Low] 81 mg PO DAILY 08/18/16 Atorvastatin Calcium [Lipitor] 80 mg PO QHS 08/18/16 Beclomethasone Diprop Inhaler 1 puff INHALATION BID 08/18/16 [Qvar 80 Mcg Inhaler] Carvedilol [Coreg (Beta Chester)] 12.5 mg PO BID 08/18/16 Esomeprazole Mag Trihydrate 40 mg PO DAILY 08/18/16 [Nexium] Ipratropium Jackson 0.06% 2 sprays NASAL BID 08/18/16 [ATROVENT NASAL SPRAY] Multivit-Min/FA/Lycopen/Lutein 1 each PO DAILY 08/18/16 [Centrum Silver Men Tablet] Olmesartan/Hydrochlorothiazide 1 tab PO DAILY 08/18/16 [Olmesartan-Hctz 40-25 mg Tab] Sildenafil Citrate [Viagra] 100 mg PO PRN PRN 08/18/16 Thiamine HCl [Vitamin B-1] 100 mg PO DAILY 08/18/16 Vit A/Vit C/Vit E/Zinc/Copper 1 cap PO DAILY 08/18/16 [Preservision Areds Softgel] Amlodipine Besylate 10 mg PO DAILY 06/28/18 Docusate Sodium 100 mg PO DAILY 06/28/18 Guaifenesin/Dextromethorphan 10 ml PO 4X/DAY 06/28/18 [Guaifenesin Dm Syrup] [place]-3 Fatty Acids [[place]ard-3] 1,200 mg PO DAILY 06/28/18 Ranitidine HCl [Zantac] 150 mg PO DAILY 06/28/18 Vitamin E 400 unit PO DAILY 06/28/18 predniSONE tablet 60 mg PO DAILY #15 tab 06/28/18 Smz/Tmp Ds [Bactrim Ds] 1 tablet PO BID #14 tablet 09/07/18 Surgical History: - - Normal aortic aneurysm repair, laryngectomy with tracheostomy for history of laryngeal cancer in 1994, Lives: With Family - Patient is Smoking Status: Never smoker Drugs: None - *Family History Maternal History Items: Cancer - His mother of cancer of the uterus. He denies any family history of cardiovascular disease. Paternal History Items: Cancer - Father of lung cancer Review of Systems Constitutional: Denies: Anorexia, Chills, Fever, Night Sweats, Weight Change HEENT: Denies: Head Aches, Sinus Congestion, Sinus Drainage Cardiovascular: Denies: Chest Pain, Orthopnea, Palpitations, Paroxysmal Noc. Dyspnea Respiratory: Denies: Cough, Shortness of breath at rest, Shortness of breath upon exertion, Sputum production Gastrointestinal: Denies: Abdominal Pain, Hematemesis, Hematochezia, Nausea, Melena, Vomiting Genitourinary: Denies: Dysuria, Frequency, Hematuria, Urgency Musculoskeletal: Denies: Joint Pain, Joint Tenderness Skin: Reports: Rash, Skin Changes, Wounds Neurological: Denies: Focal weakness, Numbness, Tingling Psychiatric: Denies: Homicidal Ideations, Suicidal Ideations Hematologic/ Lymphatic: Denies: Easy Bruising, Easy Bleeding VTE Information - Inpt Only VTE Present on Admission: No VTE Mechan Device Prophylaxis: Knee High ROBERT Hose VTE Pharm Prophylaxis ordered?: Yes Patient Problems: Active and Suspected Problems Cellulitis of left upper extremity (Acute) Staph aureus infection (Acute) Streptococcus infection, group C (Acute) Objective: GENERAL: cooperative HEENT: Atraumatic; tracheostomy stoma insitu EYES; Anicteric, Normal Conjunctiva NECK; supple, normal thyroid, no distended JVD. RESPIRATORY: Diminished to auscultation bilaterally, CARDIOVASCULAR: Regular S1 S2, no audible murmurs GI: soft, non-tender, normoactive bowel sounds, : No Renal angle tenderness; EXTREMITIES: An area of induration with surrounding erythema with purulent discharge from left elbow wound MUSCULOSKELETAL range restricted in the left elbow NEURO: Awake; no lateralizing signs. SKIN: As described above PSYCH; Normal affect - Physical Exam Vital Signs Temp Pulse Resp BP Pulse Ox 99.0 F 68 18 144/70 H 99 09/09/18 11:03 09/09/18 11:03 09/09/18 11:03 09/09/18 11:03 09/09/18 11:03 Oxygen Delivery Method Room Air Weight: 101.151 kg Body Mass Index (BMI) 30.2 Laboratory Tests Past 24 Hrs 09/09/18 09/09/18 09/09/18 11:45 11:45 11:45 WBC 12.9 H RBC 4.33 L Hgb 14.4 Hct 41.5 MCV 95.8 H MCH 33.3 H MCHC 34.7 RDW 13.8 RDW Differential 48.5 H Plt Count 121 L MPV 11.5 Immature Gran % (Auto) 0.200 Neut % (Auto) 80.1 H Lymph % (Auto) 7.[address] [place] % (Auto) 11.4 H Eos % (Auto) 0.3 Baso % (Auto) 0.2 Absolute Neuts (auto) 10.4 H Absolute Lymphs (auto) 1.01 Total Counted Not Reportable Sodium 133 L Potassium 3.6 Chloride 97 L Carbon Dioxide 30.0 Anion Gap 6 BUN 29 H Creatinine 1.24 Estim Creat Clear Calc 52.15 Est GFR (MDRD) Af Amer 72 Est GFR (MDRD) Non-Af 60 BUN/Creatinine Ratio 23.4 H Glucose 96 Lactic Acid 1.8 Calcium 8.9 Assessment/Plan All Active Problems Cellulitis of left upper extremity (Acute) Staph aureus infection (Acute) Streptococcus infection, group C (Acute) Hyperkalemia (Resolved) Dehydration (Resolved) Hyponatremia (Resolved) SOB (shortness of breath) (Resolved) Hypomagnesemia (Resolved) Patient is an 78-year-old gentleman presenting with left elbow swelling erythema and discharge from her left elbow wound 1. Left elbow abscess with surrounding areas of cellulitis. Patient has been admitted to regular nursing floor. Patient's wound was debridement in the emergency department by Dr. Silva. Repeat cultures sent. Patient cultures obtained from the urgent care center so far positive staph aureus and and group C strep final identification pending. Patient was started on vancomycin and Zosyn pending culture results 2. History of laryngeal cancer status post laryngectomy patient had a received tracheostomy next 3. COPD currently not in exacerbation 4. Hypertension-blood pressure controlled, home medications continued with dose adjustment as needed 5. Peripheral vascular disease by history 6. Dyslipidemia 7. DVT prophylaxis SC Lovenox Advance planning; did discuss with the patient and patient's daughter regarding advanced directives as well as CODE STATUS. Did explain the various scenarios involved ( FULL CODE, DNR CCA, DNR CCA with no intubation, and DNR CC and what each meant) patient elected to be full code. Order was placed. Time spent on discussion 18 minutes. Code Visit Inpatient E&M: 88548 Init Hosp L3 Procedures: 93309 Advncd Care Plan 30 Min
--- NOTE | 2018-09-09 12:34 | NURSING ---
Sent Cortext message to ED Charge Nurse that pt can come to the floor.
[2018-09-09] MEDS: Dext 5%-0.45% NS 1,000 ML 125 ML IV ×2 (14:39→23:40)
--- NOTE | 2018-09-09 16:13 | PCM.RX.CS ---
Consult Pharmacy has been consulted to manage selected antiobiotic: Vancomycin Type of Consult: New start Suspected Infection: Skin/Soft tissue Prior Doses of Antibiotics Received/Current Regimen: Received 2000mg IV x1 in ER at 12:41 today. Labs: Sodium 133 mmol/L (136-145) L 09/09/18 11:45 Potassium 3.6 mmol/L (3.5-5.1) 09/09/18 11:45 Chloride 97 mmol/L (98-107) L 09/09/18 11:45 Carbon Dioxide 30.0 mmol/L (21.0-32.0) 09/09/18 11:45 Anion Gap 6 (5-15) 09/09/18 11:45 BUN 29 mg/dL (7-18) H 09/09/18 11:45 Creatinine 1.24 mg/dL (0.70-1.30) 09/09/18 11:45 Est GFR (MDRD) Af Amer 72 mL/min (>60) 09/09/18 11:45 Est GFR (MDRD) Non-Af 60 mL/min (>60) 09/09/18 11:45 BUN/Creatinine Ratio 23.4 RATIO (10-20) H 09/09/18 11:45 Glucose 96 mg/dL (74-106) 09/09/18 11:45 Weight used for dosin.5 kg Estimated Creatinine Clearance: 52 ml/min Goal Trough: 10-15 mcg/mL Pharmacy Plan for Drug Dosing: Initial dose was given in ER so will continue from there with 750mg IV q12h. A trough will be ordered to be drawn before the 4th dose. Pharmacy Service will continue to monitor and adjust dosing as required. Follow-Up Labs: Trough Vancomycin Labs to be done on [date and time ordered]: 09/11/18 00:30
[2018-09-09 17:27] LABS: M R Staph aureus DNA By PCR Negative (Negative); Probe Check PASS; Staph aureus DNA By PCR POSITIVE (Negative)
[2018-09-09] MEDS: Albuterol 2.5 MG/3 ML VIAL.NEB. INHALATION (18:25)
[2018-09-09] MEDS: Atorvastatin Calcium 80 MG Tablet PO (22:18)
[2018-09-09] MEDS: Carvedilol 12.5 MG Tablet PO (22:18)
[2018-09-09] MEDS: Ipratropium Bromide 0.06% NASAL SPRAY 2 SPRAY NASAL (22:27)
[2018-09-10] VITALS (7 sets, daily range): BP systolic 118–150; BP diastolic 61–76; PULSE 55–87; RESP 16–20; TEMP 36.7–36.9; O2SAT 93–98
--- NOTE | 2018-09-10 02:31 | NURSING ---
This RN called and spoke with RX, notified that 1am vancomycin is going to be hung late d/t it being incompatible with zosyn and at this time patient only has 1 IV line.
[2018-09-10 06:02] LABS: Absolute Neutrophil Count 6.9 X10^3/uL (2.0-7.7); Basophil# 0.02 X10^3/uL; Basophil% 0.2 % (0-1); Eosinophil# 0.18 X10^3/uL; Eosinophils% 1.8 % (0-5); Hematocrit 38.4 % (40-54); Hemoglobin 13.2 g/dl (13.0-16.5); Lymphocyte % 14.2 % (19-41); Mean Corp Hgb Conc 34.4 g/gl (32-36); Mean Platelet Vol. 11.7 fl (6.2-12.0); Monocyte# 1.29 X10^3/uL; Monocyte% 13.1 % (0-10); Neutrophil # 6.89 X10^3/uL (2.7-7.7); Neutrophil % 70.2 % (47-70); Platelet Count 117 K/mm3 (150-450); RBC Distribution Width CV 13.8 % (11.6-14.6); RBC Distribution Width SD 46.6 fl (35.1-43.9); White Blood Count 9.8 K/mm3 (4.4-11.0)
[2018-09-10 06:21] LABS: Anion Gap 7 (5-15); BUN 25 mg/dL (7-18); BUN/Creat Ratio 24.8 RATIO (10-20); Calcium,Total 8.2 mg/dL (8.5-10.1); Chloride 100 mmol/L (98-107); Creatinine, Serum 1.01 mg/dL (0.70-1.30); EST Glomerular Filtration Rate 76 mL/min (>60); Est Glom Filt Rate - Afr Amer 91 mL/min (>60); Estimated Creatinine Clearance 64.03 ml/min; Glucose 124 mg/dL (74-106); POSITIVE COUNT NO; POSITIVE DIFFERENTIAL NO; POSITIVE MORPHOLOGY NO; Potassium 3.5 mmol/L (3.5-5.1); Sodium Level 133 mmol/L (136-145)
[2018-09-10] MEDS: Budesonide Respules 0.5 MG/2 ML AMPUL.NEB. INHALATION ×2 (06:52→19:35)
[2018-09-10] MEDS: Albuterol 2.5 MG/3 ML VIAL.NEB. INHALATION ×3 (06:59→19:35)
[2018-09-10] MEDS: Dext 5%-0.45% NS 1,000 ML 125 ML IV ×2 (08:35→17:36)
--- NOTE | 2018-09-10 09:04 | NURSING ---
wound photo: left elbow
[2018-09-10] MEDS: Docusate Sodium 100 MG Capsule PO (09:36)
[2018-09-10] MEDS: Ipratropium Bromide 0.06% NASAL SPRAY 2 SPRAY NASAL ×2 (09:36→21:18)
[2018-09-10] MEDS: hydroCHLOROthiazide 25 MG Tablet PO (09:37)
[2018-09-10] MEDS: Aspirin E.C. 81 MG Tablet PO (09:37)
[2018-09-10] MEDS: Losartan Potassium 100 MG Tablet PO (09:37)
[2018-09-10] MEDS: amLODIPine 10 MG Tablet PO (09:37)
[2018-09-10] MEDS: Carvedilol 12.5 MG Tablet PO ×2 (09:37→21:19)
[2018-09-10] MEDS: Pantoprazole Sodium 40 MG Tablet PO (09:38)
[2018-09-10] MEDS: Thiamine Hydrochloride 100 MG Tablet PO (09:38)
[2018-09-10] MEDS: Enoxaparin 40 MG/0.4 ML Syringe SC (09:43)
--- NOTE | 2018-09-10 09:55 | CASEMGMT ---
RN CM Face to Face with patient for initial transition planning/care coordination assessment. RN CM introduced self and role at [facility]. Patient lying in bed, alert and oriented. Patient willing to participate in assessment and is able to answer all questions appropriately. Care providers, pharmacy, and demographics verified. Patient wishes to discharge home, denies need for home health at this time. Patient states he has no further needs or concerns at this time. CM to follow for discharge planning needs that may arise. PCP: Jackie Specialists: [facility]acy: [facility] Insurance: Jw ABDULLAHI Prescription Benefit: Yes Living Will/HPOA: Yes, daughter Omaira Gayle HPOA LNOK: 2 daughters Living Arrangements: Patient lives alone in 1 story home. Patient states he is independent at home. States daughters can help with dressing changes Transportation: self/daughters DME/HHC: Patient states he has shower chair, raised toilet seat, cane, walker, wc, and nebulizer at home. Denied previous HHC or SNF. Disposition Plan: Patient to discharge home with family support and follow-up plans in place. Moon BARBOSA, RN, CM
--- NOTE | 2018-09-10 16:46 | CON.PCM_ITS ---
Problem List (1) MSSA (methicillin susceptible Staphylococcus aureus) infection Status: Acute Reason for Consult: mssa Consulted by: Dr. Slater History of Present Illness: The patient is a 78 year old M with fall 09/06, then swelling/redness/pa in/drainage from elbow. Went to urgent care 09/07, sutured, cxs sent, worsened sx, so admitted 09/09. Started on vanc/zosyn, elbow and swelling much better. No fever. Full ROS Performed and neg except as noted above. - Medical History Past Medical History (Chronic Problems): Chronic Problems Depression (Chronic) Erectile dysfunction (Chronic) Alcohol dependence (Chronic) beer daily HTN (hypertension) (Chronic) COPD (chronic obstructive pulmonary disease) (Chronic) Cough (Chronic) History of tracheostomy (Chronic) History of laryngeal cancer (Chronic) had surgery with a tracheostomy in 1994 History of nephrolithiasis (Chronic) History of abdominal aortic aneurysm repair (Chronic) PVD (peripheral vascular disease) (Chronic) Carotid artery bruit (Chronic) BL, L>R HLD (hyperlipidemia) (Chronic) Allergies/Adverse Reactions: Allergies No Known Allergies Allergy (Verified 09/09/18 15:08) Home Medications: Ambulatory Orders Medication Instructions Recorded Albuterol Sulfate [Ventolin Hfa] 2 puff INHALATION Q4H PRN 08/18/16 Aspirin [Aspir-Low] 81 mg PO DAILY 08/18/16 Atorvastatin Calcium [Lipitor] 80 mg PO QHS 08/18/16 Beclomethasone Diprop Inhaler 1 puff INHALATION BID 08/18/16 [Qvar 80 Mcg Inhaler] Carvedilol [Coreg (Beta [place])] 12.5 mg PO BID 08/18/16 Esomeprazole Mag Trihydrate 40 mg PO DAILY 08/18/16 [Nexium] Ipratropium [place] 0.06% 2 sprays NASAL BID 08/18/16 [ATROVENT NASAL SPRAY] Multivit-Min/FA/Lycopen/Lutein 1 each PO DAILY 08/18/16 [Centrum Silver Men Tablet] Olmesartan/Hydrochlorothiazide 1 tab PO DAILY 08/18/16 [Olmesartan-Hctz 40-25 mg Tab] Sildenafil Citrate [Viagra] 100 mg PO PRN PRN 08/18/16 Thiamine HCl [Vitamin B-1] 100 mg PO DAILY 08/18/16 Vit A/Vit C/Vit E/Zinc/Copper 1 cap PO DAILY 08/18/16 [Preservision Areds Softgel] Amlodipine Besylate 10 mg PO DAILY 06/28/18 Docusate Sodium 100 mg PO DAILY 06/28/18 [place]-3 Fatty Acids [[place]-3] 1,200 mg PO DAILY 06/28/18 Ranitidine HCl [Zantac] 150 mg PO DAILY 06/28/18 Vitamin E 400 unit PO DAILY 06/28/18 Smz/Tmp Ds [Bactrim Ds] 1 tablet PO BID 09/09/18 predniSONE tablet 60 mg PO DAILY 09/09/18 - Social History SMOKING STATUS:: Former smoker Vital Signs Temp Pulse Resp BP Pulse Ox 98.2 F 62 16 118/61 97 09/10/18 14:10 09/10/18 14:10 09/10/18 14:10 09/10/18 14:10 09/10/18 14:10 Oxygen Delivery Method Room Air Weight: 97.522 kg Body Mass Index (BMI) 29.1 Laboratory Tests Past 24 Hrs 09/09/18 09/10/18 09/10/18 15:05 05:26 05:26 WBC 9.8 RBC 4.00 L Hgb 13.2 Hct 38.4 L MCV 96.0 H MCH 33.0 H MCHC 34.4 RDW 13.8 RDW Differential 46.6 H Plt Count 117 L MPV 11.7 Immature Gran % (Auto) 0.500 Neut % (Auto) 70.2 H Lymph % (Auto) 14.2 L [place] % (Auto) 13.1 H Eos % (Auto) 1.8 Baso % (Auto) 0.2 Absolute Neuts (auto) 6.9 Absolute Lymphs (auto) 1.40 Total Counted Not Reportable Sodium 133 L Potassium 3.5 Chloride 100 Carbon Dioxide 26.0 Anion Gap 7 BUN 25 H Creatinine 1.01 Estim Creat Clear Calc 64.03 Est GFR (MDRD) Af Amer 91 Est GFR (MDRD) Non-Af 76 BUN/Creatinine Ratio 24.8 H Glucose 124 H Calcium 8.2 L S.aureus Protein A PCR POSITIVE H MRSA (PCR) Negative - Other Studies Radiology: [] reviewed Other Studies: [] Route of nutrition/ use of supplements: [] Nutritional Intake: [] IV Site: [] Godinez Catheter: [] - Physical Exam General: Alert, Oriented x3, Cooperative, No apparent distress HEENT: Atraumatic, PERRLA, EOMI Neck: Supple, No Nodes Lungs: Clear to auscultation, Normal air movement Cardiovascular: Regular rate, Regular Rhythm Abdomen: Soft, Non Tender, Non-Distended Skin: Ulcer/ Wound - L elbow, minimal drainage IV Site: Peripheral, without redness Musculoskeletal: - - L elbow and forearm some redness/swelling/warmth Neurological: Cranial nerves II-XII grossly intact - Assessment/Plan Antibiotics: [] Assessment/Plan: [] L elbow infection s/p fall - cx 09/06 with mssa and group C strep. Narrow abx to cefazolin. No fever, overall much improved. Will follow, thank you.
--- NOTE | 2018-09-10 17:12 | PCM.PN.HOSP ---
Patient Problems: Active and Suspected Problems MSSA (methicillin susceptible Staphylococcus aureus) infection (Acute) Subjective: Left elbow feeling better. Vitals/I&O's: Vital Signs Temp Pulse Resp BP Pulse Ox 36.8 C 62 16 118/61 97 09/10/18 14:10 09/10/18 14:10 09/10/18 14:10 09/10/18 14:10 09/10/18 14:10 Oxygen Delivery Method Room Air Weight: 97.522 kg Body Mass Index (BMI) 29.1 Intake and Output for Last 24 Hours 09/08/18 09/09/18 09/10/18 23:59 23:59 23:59 Intake Total 1653 / 1653 1065 / 1065 Output Total 625 / 625 650 / 650 Balance 1028 / 1028 415 / 415 General: Alert, No apparent distress HEENT: Atraumatic, Normocephalic Extremities: No edema, No Calf Tenderness Skin: - - serous drainage from left elbow Psych/Mental Status: Normal Affect, Appropriate Laboratory Results 09/09/18 15:05: S.aureus Protein A PCR POSITIVE H, MRSA (PCR) Negative 09/10/18 05:26: WBC 9.8, RBC 4.00 L, Hgb 13.2, Hct 38.4 L, MCV 96.0 H, MCH 33.0 H, MCHC 34.4, RDW 13.8, RDW Differential 46.6 H, Plt Count 117 L, MPV 11.7, Immature Gran % (Auto) 0.500, Neut % (Auto) 70.2 H, Lymph % (Auto) 14.2 L, [place] % (Auto) 13.1 H, Eos % (Auto) 1.8, Baso % (Auto) 0.2, Absolute Neuts (auto) 6.9, Absolute Lymphs (auto) 1.40, Total Counted Not Reportable 09/10/18 05:26: Sodium 133 L, Potassium 3.5, Chloride 100, Carbon Dioxide 26.0, Anion Gap 7, BUN 25 H, Creatinine 1.01, Estim Creat Clear Calc 64.03, Est GFR (MDRD) Af Amer 91, Est GFR (MDRD) Non-Af 76, BUN/Creatinine Ratio 24.8 H, Glucose 124 H, Calcium 8.2 L Current Medications Acetaminophen (Tylenol) 650 mg PO Q6H PRN PRN PRN Reason: Mild Pain (1-3)/Temp > 100.7 F Al Hydroxide/Mg Hydroxide (Mylanta Ii) 30 ml PO Q6H PRN PRN PRN Reason: Gastric Burning Albuterol Sulfate (Ventolin Aerosols) 2.5 mg INHALATION Q2H PRN PRN PRN Reason: Shortness of Breath/Wheezing Last Admin: 09/10/18 13:11 Dose: 2.5 mg Amlodipine Besylate (Norvasc) 10 mg PO DAILY [facility] Last Admin: 09/10/18 09:37 Dose: 10 mg Aspirin (Ecotrin) 81 mg PO DAILY [facility] Last Admin: 09/10/18 09:37 Dose: 81 mg Atorvastatin Calcium (Lipitor) 80 mg PO QHS [facility] Last Admin: 09/09/18 22:18 Dose: 80 mg Budesonide (Pulmicort Aerosol) 0.5 mg INHALATION Q12H.RT [facility] Last Admin: 09/10/18 06:52 Dose: 0.5 mg Carvedilol (Coreg) 12.5 mg PO BID [facility] Last Admin: 09/10/18 09:37 Dose: 12.5 mg Docusate Sodium (Colace) 100 mg PO DAILY [facility] Last Admin: 09/10/18 09:36 Dose: 100 mg Enoxaparin Sodium (Lovenox) 40 mg SC DAILY@1000 [facility] Last Admin: 09/10/18 09:43 Dose: 40 mg Guaifenesin (Robitussin) 20 ml PO Q4H PRN PRN PRN Reason: COUGH Hydrochlorothiazide (Hctz) 25 mg PO DAILY [facility] Last Admin: 09/10/18 09:37 Dose: 25 mg Dextrose/Sodium Chloride () 1,000 mls @ 125 mls/hr IV .Q8H [facility] Last Admin: 09/10/18 08:35 Dose: 125 mls/hr Cefazolin Sodium 2 gm/ Sodium (Chloride) 110 mls @ 150 mls/hr IV Q8 [facility] Ipratropium [place] (Atrovent Nasal [place] (G)) 2 spray NASAL BID [facility] Last Admin: 09/10/18 09:36 Dose: 2 sprays Losartan Potassium (Cozaar) 100 mg PO DAILY [facility] Last Admin: 09/10/18 09:37 Dose: 100 mg Magnesium Hydroxide (Milk Of Magnesia) 30 ml PO DAILY PRN PRN PRN Reason: Constipation Melatonin (Melatonin) 3 mg PO QHS PRN PRN PRN Reason: INSOMNIA Morphine Sulfate () 2 mg IV Q3H PRN PRN PRN Reason: Severe pain (7-10) Nutritional Formula (Lactose Free) (Ensure Enlive) 120 ml PO 4X/DAY [facility] Last Admin: 09/10/18 13:21 Dose: 120 ml Ondansetron HCl (Zofran) 4 mg IV Q8H PRN PRN PRN Reason: NAUSEA/VOMITING Oxycodone HCl (Oxyir) 10 mg PO Q4H PRN PRN PRN Reason: Moderate Pain (4-6) Pantoprazole Sodium (Protonix) 40 mg PO DAILY [facility] Last Admin: 09/10/18 09:38 Dose: 40 mg Promethazine HCl (Phenergan) 25 mg IM Q6H PRN PRN PRN Reason: Breakthrough nausea/vomiting Sodium Chloride () 5 - 15 ml IV UD PRN PRN Reason: SALINE FLUSH Thiamine HCl (Vitamin B1) 100 mg PO DAILY [facility] Last Admin: 09/10/18 09:38 Dose: 100 mg Medical Necessity - Tobacco Use Smoking Status: Former smoker Tobacco Use: Cigarettes Assessment/Plan All Active Problems MSSA (methicillin susceptible Staphylococcus aureus) infection (Acute) Hyperkalemia (Resolved) Dehydration (Resolved) Hyponatremia (Resolved) SOB (shortness of breath) (Resolved) Hypomagnesemia (Resolved) 1. left elbow cellulitis and abscess MSSA and group C strep ID following and changed to cefazolin. still with significant drainage, though serous. monitor for now 2. VTE proph: LMWH. Code Visit Inpatient E&M: 01706 Subs Hosp L1
--- NOTE | 2018-09-10 17:17 | PN_ITS ---
Patient Problems: Active and Suspected Problems MSSA (methicillin susceptible Staphylococcus aureus) infection (Acute) Subjective: Left elbow feeling better. Vitals/I&O's: Vital Signs Temp Pulse Resp BP Pulse Ox 36.8 C 62 16 118/61 97 09/10/18 14:10 09/10/18 14:10 09/10/18 14:10 09/10/18 14:10 09/10/18 14:10 Oxygen Delivery Method Room Air Weight: 97.522 kg Body Mass Index (BMI) 29.1 Intake and Output for Last 24 Hours 09/08/18 09/09/18 09/10/18 23:59 23:59 23:59 Intake Total 1653 / 1653 1065 / 1065 Output Total 625 / 625 650 / 650 Balance 1028 / 1028 415 / 415 General: Alert, No apparent distress HEENT: Atraumatic, Normocephalic Extremities: No edema, No Calf Tenderness Skin: - - serous drainage from left elbow Psych/Mental Status: Normal Affect, Appropriate Laboratory Results 09/09/18 15:05: S.aureus Protein A PCR POSITIVE H, MRSA (PCR) Negative 09/10/18 05:26: WBC 9.8, RBC 4.00 L, Hgb 13.2, Hct 38.4 L, MCV 96.0 H, MCH 33.0 H, MCHC 34.4, RDW 13.8, RDW Differential 46.6 H, Plt Count 117 L, MPV 11.7, Immature Gran % (Auto) 0.500, Neut % (Auto) 70.2 H, Lymph % (Auto) 14.2 L, [place] % (Auto) 13.1 H, Eos % (Auto) 1.8, Baso % (Auto) 0.2, Absolute Neuts (auto) 6.9, Absolute Lymphs (auto) 1.40, Total Counted Not Reportable 09/10/18 05:26: Sodium 133 L, Potassium 3.5, Chloride 100, Carbon Dioxide 26.0, Anion Gap 7, BUN 25 H, Creatinine 1.01, Estim Creat Clear Calc 64.03, Est GFR (MDRD) Af Amer 91, Est GFR (MDRD) Non-Af 76, BUN/Creatinine Ratio 24.8 H, Glucose 124 H, Calcium 8.2 L Current Medications Acetaminophen (Tylenol) 650 mg PO Q6H PRN PRN PRN Reason: Mild Pain (1-3)/Temp > 100.7 F Al Hydroxide/Mg Hydroxide (Mylanta Ii) 30 ml PO Q6H PRN PRN PRN Reason: Gastric Burning Albuterol Sulfate (Ventolin Aerosols) 2.5 mg INHALATION Q2H PRN PRN PRN Reason: Shortness of Breath/Wheezing Last Admin: 09/10/18 13:11 Dose: 2.5 mg Amlodipine Besylate (Norvasc) 10 mg PO DAILY [facility] Last Admin: 09/10/18 09:37 Dose: 10 mg Aspirin (Ecotrin) 81 mg PO DAILY [facility] Last Admin: 09/10/18 09:37 Dose: 81 mg Atorvastatin Calcium (Lipitor) 80 mg PO QHS [facility] Last Admin: 09/09/18 22:18 Dose: 80 mg Budesonide (Pulmicort Aerosol) 0.5 mg INHALATION Q12H.RT [facility] Last Admin: 09/10/18 06:52 Dose: 0.5 mg Carvedilol (Coreg) 12.5 mg PO BID [facility] Last Admin: 09/10/18 09:37 Dose: 12.5 mg Docusate Sodium (Colace) 100 mg PO DAILY [facility] Last Admin: 09/10/18 09:36 Dose: 100 mg Enoxaparin Sodium (Lovenox) 40 mg SC DAILY@1000 [facility] Last Admin: 09/10/18 09:43 Dose: 40 mg Guaifenesin (Robitussin) 20 ml PO Q4H PRN PRN PRN Reason: COUGH Hydrochlorothiazide (Hctz) 25 mg PO DAILY [facility] Last Admin: 09/10/18 09:37 Dose: 25 mg Dextrose/Sodium Chloride () 1,000 mls @ 125 mls/hr IV .Q8H [facility] Last Admin: 09/10/18 08:35 Dose: 125 mls/hr Cefazolin Sodium 2 gm/ Sodium (Chloride) 110 mls @ 150 mls/hr IV Q8 [facility] Ipratropium [place] (Atrovent Nasal [place] (G)) 2 spray NASAL BID [facility] Last Admin: 09/10/18 09:36 Dose: 2 sprays Losartan Potassium (Cozaar) 100 mg PO DAILY [facility] Last Admin: 09/10/18 09:37 Dose: 100 mg Magnesium Hydroxide (Milk Of Magnesia) 30 ml PO DAILY PRN PRN PRN Reason: Constipation Melatonin (Melatonin) 3 mg PO QHS PRN PRN PRN Reason: INSOMNIA Morphine Sulfate () 2 mg IV Q3H PRN PRN PRN Reason: Severe pain (7-10) Nutritional Formula (Lactose Free) (Ensure Enlive) 120 ml PO 4X/DAY [facility] Last Admin: 09/10/18 13:21 Dose: 120 ml Ondansetron HCl (Zofran) 4 mg IV Q8H PRN PRN PRN Reason: NAUSEA/VOMITING Oxycodone HCl (Oxyir) 10 mg PO Q4H PRN PRN PRN Reason: Moderate Pain (4-6) Pantoprazole Sodium (Protonix) 40 mg PO DAILY [facility] Last Admin: 09/10/18 09:38 Dose: 40 mg Promethazine HCl (Phenergan) 25 mg IM Q6H PRN PRN PRN Reason: Breakthrough nausea/vomiting Sodium Chloride () 5 - 15 ml IV UD PRN PRN Reason: SALINE FLUSH Thiamine HCl (Vitamin B1) 100 mg PO DAILY [facility] Last Admin: 09/10/18 09:38 Dose: 100 mg Medical Necessity - Tobacco Use Smoking Status: Former smoker Tobacco Use: Cigarettes Assessment/Plan All Active Problems MSSA (methicillin susceptible Staphylococcus aureus) infection (Acute) Hyperkalemia (Resolved) Dehydration (Resolved) Hyponatremia (Resolved) SOB (shortness of breath) (Resolved) Hypomagnesemia (Resolved) 1. left elbow cellulitis and abscess * MSSA and group C strep * ID following and changed to cefazolin. * still with significant drainage, though serous. * monitor for now 2. VTE proph: LMWH. Code Visit Inpatient E&M: 49292 Subs Hosp L1
[2018-09-10] MEDS: Cefazolin 2 GM in 0.9% Normal Saline 100 ML IV (21:17)
[2018-09-10] MEDS: Atorvastatin Calcium 80 MG Tablet PO (21:18)
[2018-09-10] MEDS: MELATONIN 3 MG TABLET PO (21:50)
[2018-09-11] MEDS: Dext 5%-0.45% NS 1,000 ML 125 ML IV ×2 (01:45→08:15)
[2018-09-11] MEDS: Albuterol 2.5 MG/3 ML VIAL.NEB. INHALATION ×2 (01:57→06:40)
[2018-09-11 01:59] VITALS: PULSE 59; RESP 18; O2SAT 94
[2018-09-11 03:06] VITALS: BP 163/89; PULSE 80; RESP 18; TEMP 37; O2SAT 95
[2018-09-11] MEDS: Cefazolin 2 GM in 0.9% Normal Saline 100 ML IV (05:05)
[2018-09-11 06:40] VITALS: PULSE 60; RESP 20; O2SAT 95
[2018-09-11] MEDS: Budesonide Respules 0.5 MG/2 ML AMPUL.NEB. INHALATION (06:40)
[2018-09-11] MEDS: Ipratropium Bromide 0.06% NASAL SPRAY 2 SPRAY NASAL (08:34)
[2018-09-11] MEDS: Docusate Sodium 100 MG Capsule PO (08:35)
[2018-09-11] MEDS: Losartan Potassium 100 MG Tablet PO (08:35)
[2018-09-11] MEDS: Carvedilol 12.5 MG Tablet PO (08:35)
[2018-09-11] MEDS: Aspirin E.C. 81 MG Tablet PO (08:35)
[2018-09-11] MEDS: amLODIPine 10 MG Tablet PO (08:36)
[2018-09-11] MEDS: Pantoprazole Sodium 40 MG Tablet PO (08:36)
[2018-09-11] MEDS: Thiamine Hydrochloride 100 MG Tablet PO (08:36)
[2018-09-11] MEDS: hydroCHLOROthiazide 25 MG Tablet PO (08:36)
[2018-09-11] MEDS: Enoxaparin 40 MG/0.4 ML Syringe SC (08:38)
[2018-09-11 09:05] VITALS: BP 160/81; PULSE 58; RESP 18; TEMP 36.7; O2SAT 98
--- NOTE | 2018-09-11 10:33 | PCM.PN.ID ---
Patient Problems: Active and Suspected Problems MSSA (methicillin susceptible Staphylococcus aureus) infection (Acute) Subjective: Feeling better, arm less sore and swollen. No fever. - Physical Exam General: Alert, Cooperative, No apparent distress Lungs: Clear to auscultation, Normal air movement Cardiovascular: Regular rate, Regular Rhythm Abdomen: Soft, Non Tender, Non-Distended Skin: Ulcer/ Wound - L elbow improved swelling and redness Vital Signs Temp Pulse Resp BP Pulse Ox 98.1 F 58 L 18 160/81 H 98 09/11/18 09:05 09/11/18 09:05 09/11/18 09:05 09/11/18 09:05 09/11/18 09:05 Oxygen Delivery Method Room Air Weight: 97.522 kg Body Mass Index (BMI) 29.1 Intake and Output for Last 24 Hours 09/09/18 09/10/18 09/11/18 23:59 23:59 23:59 Intake Total 1653 / 1653 2919 / 2919 871 / 871 Output Total 625 / 625 2100 / 2100 800 / 800 Balance 1028 / 1028 819 / 819 71 / 71 Medical Necessity - Tobacco Use Smoking Status: Former smoker Tobacco Use: Cigarettes Route of nutrition/ use of supplements: [] Nutritional Intake: [] IV Site: [] Godinez Catheter: [] - Assessment/Plan Antibiotics: [] Assessment/Plan: [] L elbow superficial infection s/p fall - cx 09/06 with mssa and group C strep. Narrowed abx to cefazolin. No fever, overall much improved. Ok for d/c home on po keflex 500mg tid for one more week. Will follow, d/w Dr. Slater
--- NOTE | 2018-09-11 10:58 | PCM.DC ---
- Discharge Diagnoses Current Active Problems: Current Active and Chronic Problems MSSA (methicillin susceptible Staphylococcus aureus) infection (Acute) You will use the following diet at home:: Cardiac Your food should be the consistency of: Regular Your liquids should be the consistency of: Regular/Thin Discharge Activity: Return to Normal Activity Keep extremity elevated above heart level: Left Arm Call your doctor if your incision/area has: Continuous Slow Oozing, Sudden Increased Bleeding, Increased Pain/ Swelling, Increased Redness Call your doctor if you observe: Fever of 101 or Higher Cleanse incision/area with: Soap & Water, Keep Dressing Clean & Dry Allergies/Adverse Reactions: Allergies No Known Allergies Allergy (Verified 09/09/18 15:08) Medications to take at Discharge Albuterol Sulfate [Ventolin Hfa] 2 puff INHALATION Q4H PRN 08/18/16 Aspirin [Aspir-Low] 81 mg PO DAILY 08/18/16 Atorvastatin Calcium [Lipitor] 80 mg PO QHS 08/18/16 Beclomethasone Diprop Inhaler [Qvar 80 Mcg Inhaler] 1 puff INHALATION BID 08/18/16 Carvedilol [Coreg (Beta [place])] 12.5 mg PO BID 08/18/16 Esomeprazole Mag Trihydrate [Nexium] 40 mg PO DAILY 08/18/16 Ipratropium [place] 0.06% [ATROVENT NASAL SPRAY] 2 sprays NASAL BID 08/18/16 Multivit-Min/FA/Lycopen/Lutein [Centrum Silver Men Tablet] 1 each PO DAILY 08/18/16 Olmesartan/Hydrochlorothiazide [Olmesartan-Hctz 40-25 mg Tab] 1 tab PO DAILY 08/18/16 Sildenafil Citrate [Viagra] 100 mg PO PRN PRN 08/18/16 Thiamine HCl [Vitamin B-1] 100 mg PO DAILY 08/18/16 Vit A/Vit C/Vit E/Zinc/Copper [Preservision Areds Softgel] 1 cap PO DAILY 08/18/16 Amlodipine Besylate 10 mg PO DAILY 06/28/18 Docusate Sodium 100 mg PO DAILY 06/28/18 [place]-3 Fatty Acids [[place]-3] 1,200 mg PO DAILY 06/28/18 Ranitidine HCl [Zantac] 150 mg PO DAILY 06/28/18 Vitamin E 400 unit PO DAILY 02/14/19 Acetaminophen [Tylenol Tablet] 650 mg PO Q6H PRN PRN tablet 09/11/18 Cephalexin [Keflex] 500 mg PO Q8H #21 capsule 09/11/18 The following prescriptions were given: Cephalexin [Keflex] 500 mg PO Q8H #21 capsule Primary Care Physician: Nav Mejia MD [Primary Care Provider] - Within 1 Week Test Results: Test results from this visit will be discussed in further detail at your follow-up appointment, if applicable. Proposed Discharge Date: 09/11/18
--- NOTE | 2018-09-11 10:59 | PCM.DC.SUM ---
Discharge Date and Diagnosis - Problem List Patient Problems: Active and Suspected Problems MSSA (methicillin susceptible Staphylococcus aureus) infection (Acute) Date of Admission: 09/09/18 Date of Discharge: 09/11/18 - Primary Discharge Diagnosis Active and Suspected Problems MSSA (methicillin susceptible Staphylococcus aureus) infection (Acute) - Secondary Discharge Diagnosis Chronic Problems Depression (Chronic) Erectile dysfunction (Chronic) Alcohol dependence (Chronic) beer daily HTN (hypertension) (Chronic) COPD (chronic obstructive pulmonary disease) (Chronic) Cough (Chronic) History of tracheostomy (Chronic) History of laryngeal cancer (Chronic) had surgery with a tracheostomy in 1994 History of nephrolithiasis (Chronic) History of abdominal aortic aneurysm repair (Chronic) PVD (peripheral vascular disease) (Chronic) Carotid artery bruit (Chronic) BL, L>R HLD (hyperlipidemia) (Chronic) Hospital Course and Treatment Consultations 09/09/18 12:56 Consult: Onc/Wound/road contractor Routine Comment: Rock Gonzalez MD: ID. Operations: None Procedures: None Summary of Care Provided: The patient is a 78 year old Maninder Harkins with left upper extremity swelling and discharge from the elbow. Patient had sustained a fall on the and seen in the emergency room on the . Patient did have sutures placed but did have purulent drainage and sutures were removed. Cultures from that culture grew out methicillin sensitive staph aureus and group C strep. Patient was seen in consultation by infectious disease and changed him over from vancomycin and Zosyn over to cefazolin. Patient was still having copious drainage from his elbow but today is doing much better and patient will be discharged with 1 week of oral Keflex. Patient will have home care to assist with dressing changes as well as family likely to assist as well. [] Patient Problems: Active and Suspected Problems MSSA (methicillin susceptible Staphylococcus aureus) infection (Acute) - Physical Exam General: Alert, No apparent distress HEENT: Atraumatic, Normocephalic Skin: - - Decreased erythema of the left arm Vital Signs Temp Pulse Resp BP Pulse Ox 36.7 C 58 L 18 160/81 H 98 09/11/18 09:05 09/11/18 09:05 09/11/18 09:05 09/11/18 09:05 09/11/18 09:05 Oxygen Delivery Method Room Air Weight: 97.522 kg Body Mass Index (BMI) 29.1 Intake and Output for Last 24 Hours 09/09/18 09/10/18 09/11/18 23:59 23:59 23:59 Intake Total 1653 / 1653 2919 / 2919 871 / 871 Output Total 625 / 625 2100 / 2100 800 / 800 Balance 1028 / 1028 819 / 819 71 / 71 Discharge Diet: Low fat/ Low Cholesterol Discharge Activity: Return to Normal Activity Keep extremity elevated above heart level: Left Arm Call your doctor if your incision/area has: Continuous Slow Oozing, Sudden Increased Bleeding, Increased Pain/ Swelling, Increased Redness Call your doctor if you observe: Fever of 101 or Higher Cleanse incision/area with: Soap & Water, Keep Dressing Clean & Dry Home Medications: Medications to take at Discharge Albuterol Sulfate [Ventolin Hfa] 2 puff INHALATION Q4H PRN 08/18/16 Aspirin [Aspir-Low] 81 mg PO DAILY 08/18/16 Atorvastatin Calcium [Lipitor] 80 mg PO QHS 08/18/16 Beclomethasone Diprop Inhaler [Qvar 80 Mcg Inhaler] 1 puff INHALATION BID 08/18/16 Carvedilol [Coreg (Beta [place])] 12.5 mg PO BID 08/18/16 Esomeprazole Mag Trihydrate [Nexium] 40 mg PO DAILY 08/18/16 Ipratropium [place] 0.06% [ATROVENT NASAL SPRAY] 2 sprays NASAL BID 08/18/16 Multivit-Min/FA/Lycopen/Lutein [Centrum Silver Men Tablet] 1 each PO DAILY 08/18/16 Olmesartan/Hydrochlorothiazide [Olmesartan-Hctz 40-25 mg Tab] 1 tab PO DAILY 08/18/16 Sildenafil Citrate [Viagra] 100 mg PO PRN PRN 08/18/16 Thiamine HCl [Vitamin B-1] 100 mg PO DAILY 08/18/16 Vit A/Vit C/Vit E/Zinc/Copper [Preservision Areds Softgel] 1 cap PO DAILY 08/18/16 Amlodipine Besylate 10 mg PO DAILY 06/28/18 Docusate Sodium 100 mg PO DAILY 06/28/18 [place]-3 Fatty Acids [[place]-3] 1,200 mg PO DAILY 06/28/18 Ranitidine HCl [Zantac] 150 mg PO DAILY 06/28/18 Vitamin E 400 unit PO DAILY 06/28/18 Acetaminophen [Tylenol Tablet] 650 mg PO Q6H PRN PRN tablet 09/11/18 Cephalexin [Keflex] 500 mg PO Q8H #21 capsule 09/11/18 Following Prescrptions Were Given to Patient: Cephalexin [Keflex] 500 mg PO Q8H #21 capsule Primary Care Physician: Nav Mejia MD [Primary Care Provider] - Within 1 Week Disposition: Home with Home Health Minutes spent on discharge:: 28 Patient Condition:: Good Medical Necessity - Tobacco Use Smoking Status: Former smoker Tobacco Use: Cigarettes Meaningful Use Info Meaningful Use Diagnoses (Choose all that apply): None applicable Code Visit Inpatient E&M: 51011 Disch Hosp
--- NOTE | 2018-09-11 11:03 | DS.PCM_ITS ---
Discharge Date and Diagnosis - Problem List Patient Problems: Active and Suspected Problems MSSA (methicillin susceptible Staphylococcus aureus) infection (Acute) Date of Admission: 09/09/18 Date of Discharge: 09/11/18 - Primary Discharge Diagnosis Active and Suspected Problems MSSA (methicillin susceptible Staphylococcus aureus) infection (Acute) - Secondary Discharge Diagnosis Chronic Problems Depression (Chronic) Erectile dysfunction (Chronic) Alcohol dependence (Chronic) beer daily HTN (hypertension) (Chronic) COPD (chronic obstructive pulmonary disease) (Chronic) Cough (Chronic) History of tracheostomy (Chronic) History of laryngeal cancer (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 Operations: None Procedures: None Summary of Care Provided: The patient is a 78 year old Maninder Harkins with left upper extremity swelling and discharge from the elbow. Patient had sustained a fall on the and seen in the emergency room on the . Patient did have sutures placed but did have purulent drainage and sutures were removed. Cultures from that culture grew out methicillin sensitive staph aureus and group C strep. Patient was seen in consultation by infectious disease and changed him over from vancomycin and Zosyn over to cefazolin. Patient was still having copious drainage from his elb ow but today is doing much better and patient will be discharged with 1 week of oral Keflex. Patient will have home care to assist with dressing changes as well as family likely to assist as well. [] Patient Problems: Active and Suspected Problems MSSA (methicillin susceptible Staphylococcus aureus) infection (Acute) - Physical Exam General: Alert, No apparent distress HEENT: Atraumatic, Normocephalic Skin: - - Decreased erythema of the left arm Vital Signs Temp Pulse Resp BP Pulse Ox 36.7 C 58 L 18 160/81 H 98 09/11/18 09:05 09/11/18 09:05 09/11/18 09:05 09/11/18 09:05 09/11/18 09:05 Oxygen Delivery Method Room Air Weight: 97.522 kg Body Mass Index (BMI) 29.1 Intake and Output for Last 24 Hours 04/28/19 04/29/19 04/30/19 23:59 23:59 23:59 Intake Total 1653 / 1653 2919 / 2919 871 / 871 Output Total 625 / 625 2099 / 2100 800 / 800 Balance 1028 / 1028 819 / 819 71 / 71 Discharge Diet: Low fat/ Low Cholesterol Discharge Activity: Return to Normal Activity Keep extremity elevated above heart level: Left Arm Call your doctor if your incision/area has: Continuous Slow Oozing, Sudden Increased Bleeding, Increased Pain/ Swelling, Increased Redness Call your doctor if you observe: Fever of 101 or Higher Cleanse incision/area with: Soap & Water, Keep Dressing Clean & Dry Home Medications: Medications to take at Discharge Albuterol Sulfate [Ventolin Hfa] 2 puff INHALATION Q4H PRN 08/18/16 Aspirin [Aspir-Low] 81 mg PO DAILY 08/18/16 Atorvastatin Calcium [Lipitor] 80 mg PO QHS 08/18/16 Beclomethasone Diprop Inhaler [Qvar 80 Mcg Inhaler] 1 puff INHALATION BID 08/18/16 Carvedilol [Coreg (Beta [place])] 12.5 mg PO BID 08/18/16 Esomeprazole Mag Trihydrate [Nexium] 40 mg PO DAILY 08/18/16 Ipratropium [place] 0.06% [ATROVENT NASAL SPRAY] 2 sprays NASAL BID 08/18/16 Multivit-Min/FA/Lycopen/Lutein [Centrum Silver Men Tablet] 1 each PO DAILY 08/18/16 Olmesartan/Hydrochlorothiazide [Olmesartan-Hctz 40-25 mg Tab] 1 tab PO DAILY 08/18/16 Sildenafil Citrate [Viagra] 100 mg PO PRN PRN 08/18/16 Thiamine HCl [Vitamin B-1] 100 mg PO DAILY 08/18/16 Vit A/Vit C/Vit E/Zinc/Copper [Preservision Areds Softgel] 1 cap PO DAILY 08/18/16 Amlodipine Besylate 10 mg PO DAILY 06/28/18 Docusate Sodium 100 mg PO DAILY 06/28/18 Pilot-3 Fatty Acids [Pilot-3] 1,200 mg PO DAILY 06/28/18 Ranitidine HCl [Zantac] 150 mg PO DAILY 06/28/18 Vitamin E 400 unit PO DAILY 06/28/18 Acetaminophen [Tylenol Tablet] 650 mg PO Q6H PRN PRN tablet 09/11/18 Cephalexin [Keflex] 500 mg PO Q8H #21 capsule 09/11/18 Following Prescrptions Were Given to Patient: Cephalexin [Keflex] 500 mg PO Q8H #21 capsule Primary Care Physician: Nav Mejia MD [Primary Care Provider] - Within 1 Week Disposition: Home with Home Health Minutes spent on discharge:: 28 Patient Condition:: Good Medical Necessity - Tobacco Use Smoking Status: Former smoker Tobacco Use: Cigarettes Meaningful Use Info Meaningful Use Diagnoses (Choose all that apply): None applicable Code Visit Inpatient E&M: 28711 Disch Hosp
--- NOTE | 2018-09-13 12:25 | CASEMGMT ---
MIESHA GRIER Discharge Follow-Up Phone Call. Lace: 12 Strata: 4 Discharge Date: 09/11/18 Adm Dx: Lt elbow abscess and cellulitis. Called number listed as pt's number on demographics to inquire about he how has been doing since being discharged from the hospital. Pt's daughter, Omaira, answered and states she assists with care for her father. She stated her father was not with her currently and that she would be able to answer any questions about discharge. Omaira states [facility] have been coming out daily for wound care/dressing changes. She states pt was able to get the script filled for antibiotics and that pt is tolerating it well. Discussed upcoming appt with Dr Mejia. Omaira states she did not notice that in the paperwork and was not aware of the appt scheduled. MIESHA GRIER provided Omaira with all info about the appt: date, time, location/address, and phone number. Omaira voices appreciation . She denies having any questions about the discharge instructions. MIESHA GRIER thanked her for choosing [facility]. Keshav BARBOSA RN, CM
== END 2018-09-11 13:05 | disposition home health service (06) | DRG 603 ==
LOC: ED 11:22 → MS3 12:44
PROVIDERS: Admitting Provider Internal Medicine; Emergency Provider Emergency Medicine; Family Provider Family Medicine; PCP Family Medicine
DX: L02.414 Cutaneous abscess of left upper limb (principal); B95.4 Other streptococcus as the cause of diseases classified elsewhere; L03.114 Cellulitis of left upper limb; J44.9 Chronic obstructive pulmonary disease, unspecified; I10 Essential (primary) hypertension; E78.5 Hyperlipidemia, unspecified; B95.61 Methicillin susceptible Staphylococcus aureus infection as the cause of diseases classified elsewhere; Z90.02 Acquired absence of larynx; Z85.21 Personal history of malignant neoplasm of larynx; Z87.891 Personal history of nicotine dependence; I73.9 Peripheral vascular disease, unspecified; Z87.442 Personal history of urinary calculi; Z86.79 Personal history of other diseases of the circulatory system; N52.9 Male erectile dysfunction, unspecified; Z93.0 Tracheostomy status; F10.20 Alcohol dependence, uncomplicated; M71.122 Other infective bursitis, left elbow
CPT/HCPCS: 31720; 36415; 73080; 80048; 83605; 85025; 87040; 87070; 87077; 87186; 87205; 87640; 94640; 97162; 97166; 97530; 99283; 99284; J7030; J7040; J7050; A4216; J7799

== ENCOUNTER 2019-11-23 05:08 | Emergency (ER) | payer MEDICARE, BC, SELFPAY ==
[2019-10-17 13:00] VITALS: BMI 30.2
[2019-11-23 05:10] VITALS: BP 216/97; PULSE 64; RESP 18; TEMP 36; O2SAT 96; BMI 29.4
--- NOTE | 2019-11-23 05:11 | CT_ITS ---
STUDY: CT LUMBAR SPINE WITHOUT CONTRAST REASON FOR EXAM: Male, 79 years old. LBP FELL 3 WEEKS AGO GETTING WORSE. MOVEMENT WORSE RADIATION DOSAGE (If Supplied By Facility): CTDIvol = ( 31.93 ) mGy, DLP = ( 1175.40 ) mGycm TECHNIQUE: The patient was scanned in a multi detector CT scanner. High resolution transaxial imaging was performed. Images were obtained from L1 to L5. Sagittal and coronal images were reconstructed. Individualized dose optimization techniques were used for this CT. COMPARISON: None FINDINGS: Normal lumbar lordosis. There is no substantial scoliosis. An acute compression fracture of the L1 vertebral body is noted without retropulsion. There is moderate loss of anterior height. Fracture of the right L2 transverse process. No visible epidural hematoma. L1-2: Disc osteophyte complex with moderate right foraminal stenosis. L2-3: Bulging annulus with moderate left foraminal stenosis. L3-4: Bulging annulus with moderate right foraminal stenosis. L4-5: Bulging annulus and bilateral facet hypertrophy with severe bilateral foraminal stenoses. L5-S1: Bilateral pars interarticularis defects and disc osteophyte complex are present at the L5-S1 level with grade 1 anterolisthesis and severe bilateral foraminal stenoses. Vascular and prostate calcifications. CT/Spine Lumbar without Contrast IMPRESSION: An acute compression fracture of the L1 vertebral body is noted without retropulsion. Fracture of the right L2 transverse process. Note: MRI is more sensitive than CT in detecting cord injury, ligament injury, and epidural hematoma. If there is clinical concern for any of these entities, MRI correlation should be considered if possible. Electronically Signed: Carlitos Durant MD at 6:23 EDT Tel , Service support ,
--- NOTE | 2019-11-23 05:11 | CT_ITS ---
STUDY: CT THORACIC SPINE WITHOUT CONTRAST REASON FOR EXAM: Male, 79 years old. LBP FELL 3 WEEKS AGO GETTING WORSE. MOVEMENT WORSE RADIATION DOSAGE (If Supplied By Facility): CTDIvol = ( 20.46 ) mGy, DLP = ( 763.15 ) mGycm TECHNIQUE: The patient was scanned in a multi detector CT scanner. High resolution imaging was performed. Images were obtained from T1 to T12. Sagittal and coronal images were reconstructed. Individualized dose optimization techniques were used for this CT. COMPARISON: None. FINDINGS: Diffuse spondylosis. Mild dextroconvex scoliosis. No acute thoracic spine injuries are visible. Incompletely imaged L1 vertebral body fracture, see separate lumbar spine CT report. No thoracic paraspinal hematoma is seen. An incompletely imaged pseudoaneurysm or ulcerated plaque cannot be excluded involving the lateral aspect of the aortic arch as seen on image 37 of series 3. Consider follow-up chest CTA if clinically indicated. CT/Spine Thoracic without Contras IMPRESSION: No acute thoracic spine injuries are visible. Incompletely imaged L1 vertebral body fracture, see separate lumbar spine CT report. An incompletely imaged pseudoaneurysm or ulcerated plaque cannot be excluded involving the left lateral aspect of the aortic arch. Consider follow-up chest CTA if clinically indicated. Electronically Signed: Carlitos Durant MD at 6:16 EDT Tel , Service support ,
--- NOTE | 2019-11-23 05:13 | ED.VIS.GEN ---
History of Present Illness Chief Complaint: Back Informant: Patient Narrative: 79-year-old male presents with concern for back pain. States that he fell approximately 3 weeks ago and has had increasing pain in his back. States it is in the middle to low back. Worse with movement. Denies any numbness or tingling. Denies any loss of bowel or bladder or saddle anesthesia. Denies any head trauma or loss of consciousness. Past Medical History - Allergies and Home Meds Allergies/Adverse Reactions: Allergies No Known Allergies Allergy (Verified 11/23/19 05:14) Primary Care Physician: Maninder Malcolm PA [Primary Care Provider] - Past Medical History: - - HTN, PVD, Laryngeal cancer Surgical History: - - Normal aortic aneurysm repair, laryngectomy with tracheostomy for history of laryngeal cancer in 1994, Lives: Alone Smoking Status: Never smoker Alcohol: None Drugs: None - Family History Maternal Family History: Reports: Cancer - His mother of cancer of the uterus. He denies any family history of cardiovascular disease. Paternal Family History: Reports: Cancer - Father of lung cancer Review of Systems General: Denies: Chills, Fever, Sweats Eyes: Denies: Visual changes - bilaterally, Diplopia ENT: Denies: Rhinorrhea, Sore throat Cardiovascular: Denies: Chest pain, Palpitations Respiratory: Denies: Dyspnea, Cough, Dyspnea on exertion Gastrointestinal: Denies: Abdominal pain, Nausea, Vomiting, Diarrhea, Melena, Hematochezia Genitourinary: Denies: Dysuria, Hematuria, Frequency Musculoskeletal: Reports: Back pain. Denies: Extremity Pain Skin: Denies: Rash, Wounds Neurological: Denies: Headache, Weakness, Numbness Physical Exam Inital Vital Signs reviewed: Yes General: Well nourished, Well developed, No Acute Distress Head: Normocephalic, Atraumatic Eyes: Perrl, EOMI ENT: Moist mucous membranes, No rhinorrhea Neck: Supple, Nontender Cardiovascular: Regular rate, Regular rhythm, No murmurs Respiratory: No distress, CTA bilaterally, Chest nontender Abdomen: Soft, Nontender, Nondistended, Normal bowel sounds Back: Normal Inspection, - - TTP over the midline in the lower thoracic and upper lumbar spine. Extremities: Nontender, No edema Skin: Normal color, No rash Neurological: Alert, Oriented x3, Cranial nerves II-XII grossly intact, Normal Strength, Normal Sensation Psychological: Normal affect, Normal Mood Diagnostic/Tx/Re-eval Clinical Impression(s) from Imaging Studies Lumbar Spine CT 11/23/19 05:11 IMPRESSION: An acute compression fracture of the L1 vertebral body is noted without retropulsion. Fracture of the right L2 transverse process. Note: MRI is more sensitive than CT in detecting cord injury, ligament injury, and epidural hematoma. If there is clinical concern for any of these entities, MRI correlation should be considered if possible. Electronically Signed: Carlitos Durant MD at 6:23 EDT Tel , Service support , Thoracic Spine CT 11/23/19 05:11 IMPRESSION: No acute thoracic spine injuries are visible. Incompletely imaged L1 vertebral body fracture, see separate lumbar spine CT report. An incompletely imaged pseudoaneurysm or ulcerated plaque cannot be excluded involving the left lateral aspect of the aortic arch. Consider follow-up chest CTA if clinically indicated. Electronically Signed: Carlitos Durant MD at 6:16 EDT Tel , Service support , - Medical Decision Making Patient appears well nontoxic. Hypertensive upon arrival likely secondary to pain. CT of the thoracic and lumbar spine shows evidence of an L1 vertebral body fracture as well as an L2 transverse process fracture. Patient was given 4 mg of subcutaneous morphine which relieved his pain. Patient is able to ambulate and has no signs of cauda equina syndrome at this time. No indication for MRI. Incidental finding of ulcerated plaque versus pseudoaneurysm of the aortic arch which is only partially visualized on CT without contrast. Patient has no chest pain at this time. I did discuss with him lab work as well as imaging this with a CTA. States that he wishes not to do this at this time. Patient was also offered admission to the hospital but states that he is feeling much better and wishes to be discharged home. Patient was advised on taking Tylenol for the next 3 days scheduled. He then will be given a very short course of oxycodone but was advised that it can make him drowsy and that he needs to be careful taking this medication. Patient does live alone but his daughter checks up on him regularly. I did ask him to return for any new or worsening pain. Also asked to follow-up with his primary care provider. Discharged home in stable condition. ED Disposition - Plan for ED Patient: Disposition: Home or Assisted Living Diagnosis: L1 vertebral fracture, Lumbar transverse process fracture, Fall Instructions: Back Fracture (Compression Fracture), ED Fx Transverse Process Prescriptions: Oxycodone [Oxyir] 5 mg PO Q6H PRN PRN 2 Days #6 tab PRN Reason: Pain Score 6-10/10 Prescription Printed Acetaminophen [Tylenol Extra Strength] 500 mg PO Q6H PRN PRN #20 tab PRN Reason: Pain Score 1-5/10 Prescription Printed Referrals: Maninder Malcolm PA [Primary Care Provider] -
[2019-11-23] MEDS: Morphine 4 MG/ML Syringe SC (05:24)
[2019-11-23 07:00] VITALS: PULSE 64; RESP 16; O2SAT 97
[2019-11-23 07:14] VITALS: BP 232/82
[2019-11-23] MEDS: Carvedilol 25 MG Tablet PO (07:22)
--- NOTE | 2019-11-25 09:15 | ED.DCSUM_ITS ---
- ER Visit Summary Date of Service: 11/25/19 Spoke with patient's PCP Jsoe Luis Malcolm physician's assistant account manager. Made aware of CT finding and need for follow-up. Ensured follow-up sometime this week. This note was generated with [employer] dictation software. It may contain incorrect words, spelling, and punctuation that were not noted in review of the chart prior to signing ED Disposition - Plan for ED Patient: Disposition: Home or Assisted Living Diagnosis: L1 vertebral fracture, Lumbar transverse process fracture, Fall Instructions: Back Fracture (Compression Fracture), ED Fx Transverse Process Prescriptions: Acetaminophen [Tylenol Extra Strength] 500 mg PO Q6H PRN PRN #20 tab PRN Reason: Pain Score 1-5/10 Prescription Printed Referrals: Maninder Malcolm PA [Primary Care Provider] -
== END 2019-11-23 09:37 | disposition home or self-care (01) ==
PROVIDERS: Emergency Provider Emergency Medicine; PCP Physician Assistant
DX: S32.019A Unspecified fracture of first lumbar vertebra, initial encounter for closed fracture (principal); S32.029A Unspecified fracture of second lumbar vertebra, initial encounter for closed fracture; W19.XXXA Unspecified fall, initial encounter; Y93.9 Activity, unspecified; Y92.9 Unspecified place or not applicable; I10 Essential (primary) hypertension; Z79.82 Long term (current) use of aspirin; Z79.899 Other long term (current) drug therapy
CPT/HCPCS: 72128; 72131; 96372; 99284

== ENCOUNTER 2019-11-29 13:44 | Inpatient (IN) | payer MEDICARE, BC, SELFPAY ==
[2019-11-29] VITALS (16 sets, daily range): BP systolic 62–179; BP diastolic 36–79; PULSE 44–93; RESP 16–25; TEMP 36.4–37.2; O2SAT 95–98; BMI 30.5; BMI 28.0; BMI 28.1
--- NOTE | 2019-11-29 14:09 | EKG12_ITS ---
Test Reason : HYPOTENSION Blood Pressure : / mmHG Vent. Rate : 046 BPM Atrial Rate : 079 BPM P-R Int : 000 ms QRS Dur : 112 ms QT Int : 482 ms P-R-T Axes : 000 006 105 degrees QTc Int : 421 ms Atrial fibrillation with slow ventricular response with a competing junctional pacemaker Abnormal ECG Confirmed by KASSIDY DIETZ, AMBER ([id number]), editorial specialist TATYANA SANCHEZ ([id number]) on 12/03/2019 9:20:32 AM Referred By: LILI Confirmed By:AMBER YI MD
--- NOTE | 2019-11-29 14:11 | ED.VIS.GEN ---
History of Present Illness Chief Complaint: Hypotension Informant: Patient Narrative: Patient is an 79-year-old male with a past medical history of COPD, throat cancer status post laryngectomy with a stoma, hypertension, atrial fibrillation who presents the emerge department for low blood pressure. He was seen at his PCPs office today and was sent in for the abnormal vital sign. Patient has been feeling short of breath. Denies any chest pain currently. He has been feeling fatigued. Patient had a fall a week ago and was diagnosed with a compression fracture. 2 days ago he fell onto the floor and spent the night on the floor. His family found him covered in urine and feces. He developed an abrasion to his left lateral ankle which they were concerned is now infected. He denies any significant pain over the site. He denies any fever/chills. No significant cough. Patient is a daily drinker. States he does a few shots of vodka per day. He has had withdrawal before in the past. He has a former smoking history. He denies any illicit drug use. Past Medical History - Allergies and Home Meds Allergies/Adverse Reactions: Allergies iodine Allergy (Intermediate, Verified 11/29/19 13:10) Unknown Prior records reviewed: Yes Past Medical History: - - Hypertension, hyperlipidemia, history of AAA, laryngeal cancer status post laryngectomy, alcoholism Surgical History: - - Normal aortic aneurysm repair, laryngectomy with tracheostomy for history of laryngeal cancer in 1994, Lives: Alone Smoking Status: Former smoker Alcohol: Heavy Drugs: None - Family History Maternal Family History: Family History (Last Reviewed 11/29/19 @ 13:10 by Candy Santamaria) Father Cancer Sister Myocardial infarction Mother Cancer Pulmonary embolus Brother Cancer Family History: Reports: Cancer - His mother of cancer of the uterus. He denies any family history of cardiovascular disease. Paternal Family History: Family History (Last Reviewed 11/29/19 @ 13:10 by Candy Santamaria) Father Cancer Sister Myocardial infarction Mother Cancer Pulmonary embolus Brother Cancer Family History: Reports: Cancer - Father of lung cancer Review of Systems All systems negative except as indicated General: Denies: Chills, Fever, Sweats Eyes: Denies: Visual changes - bilaterally, Diplopia ENT: Denies: Rhinorrhea, Sore throat Cardiovascular: Denies: Chest pain, Palpitations Respiratory: Reports: Dyspnea, Dyspnea on exertion. Denies: Cough Gastrointestinal: Reports: Diarrhea. Denies: Abdominal pain, Nausea, Vomiting, Melena, Hematochezia Genitourinary: Denies: Dysuria, Hematuria, Frequency Musculoskeletal: Denies: Back pain, Extremity Pain Skin: Reports: Wounds - Left ankle. Denies: Rash Neurological: Reports: Weakness - Generalized. Denies: Headache, Numbness Physical Exam Vital Signs/Narrative: Vital Signs Temp Pulse Resp BP Pulse Ox 11/29/19 13:45 98.9 F 49 L 18 69/42 L 97 Inital Vital Signs reviewed: Yes General: Well nourished, Well developed, No Acute Distress Head: Normocephalic, Atraumatic Eyes: Perrl, EOMI, - - Left eye strabismus ENT: Moist mucous membranes, No rhinorrhea, - - Stoma present with previous laryngectomy Neck: Supple, Nontender Cardiovascular: No murmurs, Irregular, Bradycardia Respiratory: No distress, CTA bilaterally, Chest nontender, - - Some radiation of sputum from upper airway present. Abdomen: Soft, Nontender, Nondistended, Normal bowel sounds Back: Nontender, Normal Inspection Extremities: Nontender, No edema Skin: Normal color, - - Patient has a healing ulcer over the left lateral malleolus. There is some mild erythema surrounding the site. No streaking up the leg. No significant tenderness or warmth. Neurological: Alert, Oriented x3, Cranial nerves II-XII grossly intact, Normal Strength, Normal Sensation Psychological: Normal affect, Normal Mood Diagnostic/Tx/Re-eval - EKG Initial EKG Interpretation: - - Rate of 46 bpm and irregularly irregular rhythm. QRS 112. QTC of 421. No ST elevations or depressions appreciated. No T wave abnormalities. - Medical Decision Making Patient presents to the emergency department for hypotension. He has been feeling very weak and short of breath. This is been going on for the past few days. He has been slightly declining since he had a fall, causing a lumbar compression fracture a week ago. Patient otherwise feels well without any significant illness. Denies fevers or chills. Upon arrival to the emerge department he is hypotensive but also bradycardic. Patient states he has been taking all of his medications. He denies taking extra of his antihypertensives. He is bradycardic as well. He is on carvedilol. We will do a septic work-up on him now and start IV fluids. Patient otherwise is nontoxic-appearing. Patient's blood pressure did drop again but did resolve with IV fluids. Given his recent fall, weakness and abnormal vital signs I do feel patient better be served in the hospital setting. He likely will need a change in his beta-tory. Blood cultures are currently pending. Otherwise no source of infection. No evidence of consolidation on chest x-ray. No evidence of urinary tract infection. The wound on the foot is being treated with Rocephin but does not appear to be causing a sepsis/septic shock. His white count is within normal limits. No signs of ischemia on EKG but he is in atrial fibrillation with the bradycardia. Troponin within normal limits. Patient is agreeable to staying in the hospital at this time. ED Disposition - Plan for ED Patient: Disposition: Acute Care Hospital [facility] Diagnosis: Symptomatic bradycardia, Hypotension, Cellulitis of left ankle, Generalized weakness
[2019-11-29] MEDS: 0.9% Normal Saline 1,000 ML 999 ML IV (14:12)
--- NOTE | 2019-11-29 14:20 | RAD_ITS ---
STUDY: X-RAY CHEST REASON FOR EXAM: Male, 79 years old. Hypotension, pt states no pain, takes medication for hypotension TECHNIQUE: AP and lateral views of the chest. COMPARISON: Comparison is made with prior examination dated June 28, 2018. FINDINGS: EKG electrodes are seen. Stable elevation of the left hemidiaphragm with stable mild degree of left basilar atelectasis and/or scarring. There is no demonstrated pleural abnormality. There is moderate cardiac enlargement. Normal mediastinum and jevon. Normal visualized pulmonary arteries. There is atherosclerotic calcification of the aortic arch with tortuosity. There are diffuse degenerative changes of the visualized thoracic spine. Mild dextroscoliosis. Normal visualized ribs, clavicles, and shoulders. There is no demonstrated abnormality of the visualized soft tissue structures of the upper abdomen. RAD/Chest PA and Lateral IMPRESSION: Cardiomegaly. Stable mild degree of the pleural parenchymal changes at the left lung base. Electronically Signed: Gurinder De Jesus, at 14:58 EDT , Service support ,
[2019-11-29 14:23] LABS: Absolute Lymphocyte Count 0.37 X10^3/uL (0.83-4.51); Absolute Neutrophil Count 8.4 X10^3/uL (2.0-7.7); Basophil# 0.05 X10^3/uL; Basophil% 0.5 % (0-1); Eosinophil# 0.18 X10^3/uL; Eosinophils% 1.8 % (0-5); Hematocrit 39.2 % (40-54); Hemoglobin 13.6 g/dL (13.0-16.5); Lymphocyte # 0.37 X10^3/ul (4.0); Lymphocyte % 3.7 % (19-41); Mean Corp Hgb Conc 34.7 g/dL (32-36); Mean Corpuscular Hgb 33.9 pg (27.0-32.0); Mean Corpuscular Volume 97.8 fL (80-94); Mean Platelet Vol. 11.1 fl (6.2-12.0); Monocyte# 0.97 X10^3/uL; Monocyte% 9.7 % (0-10); NRBC Flagged by Analyzer 0 % (0-5); Neutrophil # 8.37 X10^3/uL (2.7-7.7); Neutrophil % 83.6 % (47-70); POSITIVE DIFFERENTIAL YES; Platelet Count 165 K/mm3 (150-450); RBC Distribution Width CV 13.1 % (11.6-14.6); RBC Distribution Width SD 46.5 fl (35.1-43.9); Red Blood Count 4.01 M/mm3 (4.6-6.2)
[2019-11-29 14:26] LABS: Differential Indicated SCAN CRITERIA MET
[2019-11-29 14:40] LABS: ALB/GLOB Ratio 0.8 RATIO (0.9-2.4); AST(SGOT) 37 U/L (15-37); Alanine Aminotransfer ALT/SGPT 34 U/L (16-61); Albumin, Serum 3.1 g/dL (3.2-5.0); Alkaline Phosphatase 158 U/L (45-117); Anion Gap 6 (5-15); BUN 40 mg/dL (7-18); CPK Total, Creatine Kinase 126 U/L (39-308); Chloride 93 mmol/L (98-107); Creatinine, Serum 1.38 mg/dL (0.70-1.30); EST Glomerular Filtration Rate 53 mL/min (>60); Est Glom Filt Rate - Afr Amer 64 mL/min (>60); Estimated Creatinine Clearance 46.08 ml/min; Glucose 119 mg/dL (74-106); Potassium 3.8 mmol/L (3.5-5.1); Protein, Total 7.1 g/dL (6.4-8.2); Sodium Level 129 mmol/L (136-145)
[2019-11-29 14:46] LABS: Platelet Estimate ADEQUATE (ADEQ); Red Cell Morphology NORM C+C NORMAL (NORM C&C)
[2019-11-29 15:39] LABS: Lactic Acid 1.7 mmol/L (0.4-1.9)
[2019-11-29 16:03] LABS: Bacteria 0 SEEN /hpf (None Seen); Mucous, Urine 0 SEEN /hpf (<or=2+)
--- NOTE | 2019-11-29 16:11 | NURSING ---
DR MUNSON FOR DR FLOWERS
--- NOTE | 2019-11-29 16:12 | HP.PCM_ITS ---
History of Present Illness Date of Admission: 11/29/19 Chief Complaint: mechanical fall, weakness The patient is a 79 year old M with an extensive past medical history as outlined. Was admitted through the ED on 11/29/2019 with a complaint of weakness and mechanical falls. Patient lives on his own and states he started having diarrhea today and had about 5 times. Diarrhea was nonbloody. He had also been sustained a mechanical falls at home and fell a few days ago and was on the floor for the whole night. He denies passing out and denies any lightheadedness or dizziness, palpitations, chest pain, nausea vomiting, fever or chills. He has not had such symptoms before. Does admit to not eating and drinking well. On arrival in the ED, blood pressure was 69/42 but it responded to IV fluids and was 179/79 at time of review. Pulse rate was 63 respiratory rate was 18 and temperature was 97.9 Fahrenheit. He was saturating at 96% on room air. Chemistry showed sodium of 129 with creatinine of 1.38 and initial troponin of less than 0.015. CBC showed hemoglobin of 13.6 with WBC of 10 and platelets of 165. Chest x-ray showed cardiomegaly with stable mild degree of pleural parenchymal changes at the left lung base. Troponin was negative. EKG showed bradycardia with heart rate of 46 beats per minutes and irregularly irregular rhythm with no acute ST changes. He has been admitted to be managed for debility due to mechanical falls and bradycardia. [] Past Medical History Past Medical History (Chronic Problems): Chronic Problems (Last Reviewed 11/29/19 @ 13:10 by Candy Santamaria) Chronic atrial fibrillation (Chronic) Bilateral carotid artery stenosis (Chronic) WILLIAM 70-99% LIC < 50% 2010 Nonobstructive atherosclerosis of coronary artery (Chronic) Essential hypertension (Chronic) HLD (hyperlipidemia) (Chronic) Medical History: Medical History (Last Reviewed 11/29/19 @ 13:10 by Candy Santamaria) Near syncope (Acute) R55 Chronic atrial fibrillation (Chronic) I48.20 Bilateral carotid artery stenosis (Chronic) I65.23 WILLIAM 70-99% LIC < 50% 2010 Nonobstructive atherosclerosis of coronary artery (Chronic) I25.10 Abdominal aortic aneurysm (AAA) (Resolved) I71.4 Repair of infrarenal abdominal aortic aneurysm w/ 18 x 9 mm bifurcated hemashield graft to bilateral common iliac arteries with a jump graft to Rt. 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 1994 Anxiety and depression F41.9, F32.9 BPH (benign prostatic hyperplasia) N40.0 Watkins's cyst of knee M71.20 Chronic right shoulder pain M25.511, G89.29 Frequent falls R29.6 Gout M10.9 Insomnia G47.00 Panlobular emphysema J43.1 Peripheral vascular occlusive disease I73.9 History of left heart catheterization Onset Date: 05/2004 Z98.890 Vitreous hemorrhage of right eye H43.11 History of myocardial infarction (Inactive) I25.2 Alcohol dependence F10.20 beer daily COPD (chronic obstructive pulmonary disease) J44.9 Erectile dysfunction N52.9 History of nephrolithiasis Z87.442 Hyponatremia E87.1 Claudication I73.9 Dehydration (Resolved) E86.0 Hyperkalemia (Resolved) E87.5 Hypomagnesemia E83.42 MSSA (methicillin susceptible Staphylococcus aureus) infection A49.01 SOB (shortness of breath) (Resolved) R06.02 Carotid artery bruit R09.89 BL, L>R Cough (Inactive) R05 Allergies iodine Allergy (Intermediate, Verified 11/29/19 13:10) Unknown Home Medications: Ambulatory Orders Medication Instructions Recorded Albuterol Sulfate [Ventolin Hfa] 2 puff INHALATION Q4H PRN 08/18/16 Multivit-Min/FA/Lycopen/Lutein 1 ea PO DAILY 08/18/16 [Centrum Silver Men Tablet] Acetaminophen [Tylenol Extra 500 mg PO Q6H PRN PRN #20 tab 11/23/19 Strength] albuterol sulfate 2.5 mg INHALATION Q4H PRN ml 11/27/19 atorvastatin 80 mg tablet 80 mg PO QHS tab 11/27/19 carvedilol 25 mg tablet 25 mg PO BID 11/27/19 thiamine HCl (vitamin B1) 100 mg 100 mg PO BID tab 11/27/19 tablet vitamins A,C,K-ivut-bbcexb 14,320 1 cap PO BID cap 11/27/19 unit-226 mg-200 unit capsule Aspirin [Aspirin EC] 81 mg PO DAILY 11/29/19 Erythromycin Ophthalmic 1 applic RIGHT EYE QHS 11/29/19 Ofloxacin 1 drp RIGHT EYE 4X/DAY 11/29/19 Olmesartan/Hydrochlorothiazide 1 tab PO DAILY 11/29/19 [Olmesartan-Hctz 40-25 mg Tab] Surgical History: Surgical History (Last Reviewed 11/29/19 @ 13:10 by Candy Santamaria) History of appendectomy Z90.49 History of tracheostomy Z98.890 History of abdominal aortic aneurysm repair Onset Date: 06/20/04 Z98.890 Repair of infrarenal abdominal aortic aneurysm w/ 18 x 9 mm bifurcated hemashield graft to bilateral common iliac arteries with a jump graft to Rt. external iliac artery 06/20/2004 Surgical History: - - Normal aortic aneurysm repair, laryngectomy with tracheostomy for history of laryngeal cancer in 1994, Psychiatric History: Depression Lives: Alone Smoking Status: Former smoker Alcohol: Heavy Drugs: None - *Family History Maternal Family History: Family History (Last Reviewed 11/29/19 @ 13:10 by Candy Santamaria) Father Cancer Sister Myocardial infarction Mother Cancer Pulmonary embolus Brother Cancer History Items: Cancer - His mother of cancer of the uterus. He denies any family history of cardiovascular disease. Paternal Family History: Family History (Last Reviewed 11/29/19 @ 13:10 by Candy Santamaria) Father Cancer Sister Myocardial infarction Mother Cancer Pulmonary embolus Brother Cancer History Items: Cancer - Father of lung cancer Review of Systems Constitutional: Reports: Anorexia, Malaise, Weakness, Fatigue. Denies: Chills, Fever Eyes: Denies: Blurred vision HEENT: Denies: Head Aches, Sinus Congestion, Sinus Drainage Cardiovascular: Denies: Chest Pain, Chest Pressure, Chest Tightness, Heaviness, Light Headedness, Orthopnea, Palpitations, Paroxysmal Noc. Dyspnea, Syncope Respiratory: Denies: Cough, Shortness of Breath, Shortness of breath at rest, Shortness of breath upon exertion, Sputum production Gastrointestinal: Reports: Diarrhea. Denies: Abdominal Pain, Constipation, Dyspepsia, Nausea, Vomiting Genitourinary: Reports: Frequency. Denies: Dysuria Musculoskeletal: Denies: Joint Pain, Joint Tenderness Skin: Denies: Rash, Wounds Neurological: Denies: Numbness, Tingling, Focal weakness Psychiatric: Denies: Anxiety, Depression, Homicidal Ideations, Suicidal Idea tions Hematologic/ Lymphatic: Denies: Easy Bruising, Easy Bleeding VTE Information - Inpt Only VTE Present on Admission: No VTE Pharm Prophylaxis ordered?: Yes Patient Problems: Active and Suspected Problems (Last Reviewed 11/29/19 @ 13:10 by Candy Santamaria) Preop cardiovascular exam (Acute) Near syncope (Acute) - Physical Exam Vitals/I&O's: Vital Signs Temp Pulse Resp BP Pulse Ox 97.8 F 44 L 25 H 62/36 L 98 11/29/19 14:48 11/29/19 14:56 11/29/19 15:58 11/29/19 15:58 11/29/19 14:56 Oxygen Delivery Method Room Air Weight: 225 lb Body Mass Index (BMI) 30.5 General: Alert, Oriented x3, Cooperative, No apparent distress HEENT: Atraumatic, PERRLA, EOMI, Normocephalic Oral: Dry Mucosa Neck: Supple, No JVD, Negative Carotid Bruits, - - has tracheostomy hole in throat Lungs: - - decreased breath sounds bibasally, no wheezes or crackles Cardiovascular: Normal S1, Normal S2, No murmurs, Bradycardic, Irregular Rate Abdomen: Bowel Sounds Present, Soft, Non Tender Extremities: No clubbing, No cyanosis, No edema, Capillary Refill Less than 3 Seconds Skin: - - has superficial excoriations on his feet and shins bilaterally. has ~ 86d19hy superficial ulceration over left ankle. Musculoskeletal: No Tenderness to Palpation of Joints or Extremities Lymphatic: No Cervical, Supraclavicular, or Inguinal Adenopathy Neurological: Cranial nerves II-XII grossly intact, Neuro grossly intact, Motor Exam 5/5 strength throughout Psych/Mental Status: Normal Affect, Appropriate, Alert and oriented to time, place, person, mood and affect Laboratory Results 11/29/19 14:05: WBC 10.0, RBC 4.01 L, Hgb 13.6, Hct 39.2 L, MCV 97.8 H, MCH 33.9 H, MCHC 34.7, RDW Std Deviation 46.5 H, RDW Coeff of [place] 13.1, Plt Count 165, MPV 11.1, Immature Gran % (Auto) 0.700, Neut % (Auto) 83.6 H, Lymph % (Auto) 3.7 L, Sully % (Auto) 9.7, Eos % (Auto) 1.8, Baso % (Auto) 0.5, Absolute Neuts (auto) 8.4 H, Absolute Lymphs (auto) 0.37 L, Nucleated RBC % 0, Platelet Estimate ADEQUATE, RBC Morphology NORM C+C 11/29/19 14:05: Sodium 129 L, Potassium 3.8, Chloride 93 L, Carbon Dioxide 30.0, Anion Gap 6, BUN 40 H, Creatinine 1.38 H, Estim Creat Clear Calc 46.08, Est GFR (MDRD) Af Amer 64, Est GFR (MDRD) Non-Af 53 L, BUN/Creatinine Ratio 29.0 H, Glucose 119 H, Calcium 9.0, Total Bilirubin 1.40 H, AST 37, ALT 34, Alkaline Phosphatase 158 H, Total Creatine Kinase 126, Troponin I < 0.015, Total Protein 7.1, Albumin 3.1 L, Globulin 4.0, Albumin/Globulin Ratio 0.8 L 11/29/19 14:05: Lactic Acid 1.7 11/29/19 15:50: Urine Color Pending, Urine Clarity Pending, Urine pH Pending, Ur Specific [place] Pending, Urine Protein Pending, Urine Glucose (UA) Pending, Urine Ketones Pending, Urine Occult Blood Pending, Urine Nitrite Pending, Urine Bilirubin Pending, Urine Urobilinogen Pending, Ur Leukocyte Esterase Pending, Urine RBC Pending, Urine WBC Pending, Ur Squamous Epith Cells Pending, Urine Bacteria Pending, Urine Mucus Pending Diagnostic Data Chest X-Ray 11/29/19 14:20 IMPRESSION: Cardiomegaly. Stable mild degree of the pleural parenchymal changes at the left lung base. Electronically Signed: Gurinder De Jesus, at 14:58 EDT , Service support , Assessment/Plan All Active Problems (Last Reviewed 11/29/19 @ 13:10 by Candy Santamaria) Preop cardiovascular exam (Acute) Near syncope (Acute) Abdominal aortic aneurysm (AAA) (Resolved) History of laryngeal cancer (Resolved) Dehydration (Resolved) Hyperkalemia (Resolved) SOB (shortness of breath) (Resolved) 79 y/o admitted with a complaitn of weakness and mechanical falls 1. Debility due to mechanical falls * admit to PCU stepdown o/a of hypotension * PT/OT consult * fall precautions * hydrate gently with IVF NS * 2. Hypotension * Due to medication. Patient is on medication for his blood pressure and A. fib as well as erectile dysfunction. These could all contribute to hypotension. * Was also noted to be bradycardic. Blood pressure went down to the 60s but subsequently came up to the 170s with IV fluid. * Hold carvedilol. Continue hydrating with IV fluid normal saline. * Monitor vital signs. * 3. Bradycardia: Heart rate is 46. Carvedilol on hold. EKG showed afib, with heart rate of [address] changes and A. fib. 4. GABBIE: Cr is 1.38, with baseline of ~ 1. Will hydrate gently with IVF and m onitor 5. Diarrhea: jose says he had 5 episodes of diarrhea yesterday. Denies being on antibiotics recently. Check C Diff. Hydrate with IVF NS 6. Afib:currently bradycardic, so carvedilol on hold. 7. Hyponatremia: Na is 129. has chronic hyponatremia, adn his baseline is arouind 133 will monitor 8. Hypertension: Hold olmesartan and hydrochlorothiazide on account of hypotension. 9. COPD: On budesonide and fluticasone inhalers. DuoNebs as needed. 10. Hyperlipidemia: On statin DVT prophylaxis; SCDs Code status: full code * Patient counseled extensively about different types of CODE STATUS including full code, DNR CCA and DNR CCA. Patient elects to be full code. Total [id number] time 17 minutes. Inpatient E&M: 18617 Init Hosp L3 Procedures: 64400 Advncd Care Plan 30 Min
[2019-11-29 16:15] LABS: Color, Urine Yellow (Yellow); Glucose, Dipstick Normal (Normal); Ketone-Dipstick 5 mg/dl (Negative); Leukocyte Esterase-Dipstick 25 /ul (Negative); Nitrite-Dipstick Negative (Negative); Occult Blood-Urine Negative /ul (Negative); Protein-Dipstick 100 mg/dl (Negative); Specific Gravity, Urine 1.015 (1.002-1.030); Urine Bilirubin Dipstick Negative (Negative); Urine Clarity Sl. Cloudy (Clear); Urine Urobilinogen 1 mg/dl (Normal)
--- NOTE | 2019-11-29 16:15 | NURSING ---
ICU HYPOTENSION [facility]OR[facility]
[2019-11-29 16:41] LABS: Red Blood Cells-Urine 0-5 SEEN /hpf (0-5); Squamous Epithelial Cells - UA 0-5 SEEN /hpf (0-5); White Blood Cells 0-5 SEEN /hpf (0-5)
--- NOTE | 2019-11-29 17:09 | EKG12_ITS ---
Test Reason : Blood Pressure : / mmHG Vent. Rate : 044 BPM Atrial Rate : 267 BPM P-R Int : 000 ms QRS Dur : 112 ms QT Int : 442 ms P-R-T Axes : 000 024 081 degrees QTc Int : 377 ms Atrial fibrillation Abnormal ECG Confirmed by LIBIA DIETZ, HAVEN ([id number]), news editor TATYANA SANCHEZ ([id number]) on 12/04/2019 8:56:37 AM Referred By: JEIMY Confirmed By:HAVEN REZA MD
[2019-11-29 18:33] LABS: Thyroid Stim Hormone (TSH) 6.67 uIU/mL (0.358-3.74)
[2019-11-29] MEDS: 0.9% Normal Saline 1,000 ML 150 ML IV (18:35)
[2019-11-29] MEDS: Cephalexin 500 MG Capsule PO (18:54)
[2019-11-29] MEDS: Albuterol 2.5 MG/3 ML VIAL.NEB. INHALATION ×2 (19:02→23:04)
[2019-11-29] MEDS: Erythromycin Base 1 OPTH.TUBE 1 APPLIC RIGHT EYE (22:26)
[2019-11-29] MEDS: Atorvastatin Calcium 80 MG Tablet PO (22:28)
[2019-11-29] MEDS: Multivitamin (Healthy Eyes) Capsule 1 CAP PO (22:28)
[2019-11-29] MEDS: CLARIFY ORDER NOTE (22:28)
[2019-11-29] MEDS: Glucerna Shake 120 ML LIQUID PO (22:28)
[2019-11-30] VITALS (17 sets, daily range): BP systolic 113–157; BP diastolic 64–86; PULSE 42–63; RESP 16–20; TEMP 36.7–36.8; O2SAT 94–99
[2019-11-30] MEDS: 0.9% Normal Saline 1,000 ML 150 ML IV (00:58)
[2019-11-30] MEDS: Cephalexin 500 MG Capsule PO ×5 (01:01→23:48)
[2019-11-30] MEDS: Albuterol 2.5 MG/3 ML VIAL.NEB. INHALATION ×4 (04:18→21:30)
[2019-11-30 06:50] LABS: Bedside Glucose 107 mg/dL (70-110)
[2019-11-30] MEDS: Thiamine Hydrochloride 100 MG Tablet PO ×2 (08:30→17:35)
[2019-11-30] MEDS: Multivitamin (Healthy Eyes) Capsule 1 CAP PO ×2 (08:30→21:09)
[2019-11-30] MEDS: Enoxaparin 40 MG/0.4 ML Syringe SC (08:30)
[2019-11-30] MEDS: Aspirin E.C. 81 MG Tablet PO (08:30)
[2019-11-30] MEDS: Multivitamins,Ther W-Minerals Tablet 1 TABLET PO (08:30)
[2019-11-30 09:02] LABS: Hematocrit 35.4 % (40-54); Hemoglobin 12.1 g/dL (13.0-16.5); Mean Corp Hgb Conc 34.2 g/dL (32-36); Mean Corpuscular Hgb 33.7 pg (27.0-32.0); Mean Corpuscular Volume 98.6 fL (80-94); Mean Platelet Vol. 10.6 fl (6.2-12.0); Platelet Count 144 K/mm3 (150-450); RBC Distribution Width CV 12.9 % (11.6-14.6); RBC Distribution Width SD 46.4 fl (35.1-43.9); Red Blood Count 3.59 M/mm3 (4.6-6.2); White Blood Count 7.6 K/mm3 (4.4-11.0)
[2019-11-30 09:19] LABS: Anion Gap 6 (5-15); BUN 34 mg/dL (7-18); Chloride 99 mmol/L (98-107); Creatinine, Serum 1.03 mg/dL (0.70-1.30); EST Glomerular Filtration Rate 74 mL/min (>60); Est Glom Filt Rate - Afr Amer 89 mL/min (>60); Estimated Creatinine Clearance 61.74 ml/min; Glucose 129 mg/dL (74-106); Magnesium 1.4 mg/dL (1.6-2.6); Potassium 3.3 mmol/L (3.5-5.1); Sodium Level 132 mmol/L (136-145)
[2019-11-30 09:34] LABS: Free T3 2.4 pg/mL (2.18-3.98); T4 Free Direct 1.05 ng/dL (0.76-1.46)
--- NOTE | 2019-11-30 11:33 | PN_ITS ---
<Anna Chacon - Last Filed: 11/30/19 11:53> Subjective: Patient seen and examined. Complains of rash on his buttock area. Denies other complaints. Patient reports ongoing weakness and falls at home. Denies further diarrhea since admission. - Physical Exam Vitals/I&O's: Vital Signs Temp Pulse Resp BP Pulse Ox 98.2 F 49 L 16 150/72 H 94 11/30/19 08:15 11/30/19 11:08 11/30/19 11:08 11/30/19 08:36 11/30/19 08:15 Oxygen Delivery Method Room Air Weight: 207 lb 7.28 oz Body Mass Index (BMI) 28.0 Orthostatic Vital Signs Start: 11/30/19 08:36 Freq: q24h Status: Active Protocol: Activity Type Activity Date Activity User E-Sign Co-Sign Detail Recorded Client Recorded Date Recorded By Document 11/30/19 08:36 [facility] [id number] 11/30/19 08:45 [facility] 11/30/19 08:36 Orthostatic Vitals Standing -Blood Pressure (90/60-120/80) 140/65 H -Extremity Use Left Arm -Pulse Rate (60-100) 56 L Sitting -Blood Pressure (90/60-120/80) 144/76 H -Extremity Use Left Arm -Pulse Rate (60-100) 63 Lying -Blood Pressure (90/60-120/80) 150/72 H -Extremity Use Left Arm -Pulse Rate (60-100) 54 L Intake and Output for Last 24 Hours 11/28/19 11/29/19 11/30/19 23:59 23:59 23:59 Intake Total 1290 / 1650 2617.5 / 2617.5 Output Total 700 / 700 Balance 1290 / 1350 1917.5 / 1917.5 General: Alert, Oriented x3, Cooperative HEENT: Atraumatic, PERRLA, EOMI, Normocephalic Oral: Dry Mucosa Neck: Supple, No JVD, Negative Carotid Bruits, - - Prior trach insertion site Lungs: Clear to auscultation, Diminished Cardiovascular: - - Atrial fibrillation, rate controlled Abdomen: Bowel Sounds Present, Soft, Non Tender, Non-Distended Extremities: No clubbing, No cyanosis, No edema, Capillary Refill Less than 3 Seconds Skin: No rashes, No breakdown, - - Mild abrasions buttock area secondary to scratching. Generalized superficial abrasions bilateral lower extremities. Musculoskeletal: No Tenderness to Palpation of Joints or Extremities Neurological: Cranial nerves II-XII grossly intact, Neuro grossly intact Psych/Mental Status: Normal Affect, Appropriate Laboratory Results 11/29/19 14:05: WBC 10.0, RBC 4.01 L, Hgb 13.6, Hct 39.2 L, MCV 97.8 H, MCH 33.9 H, MCHC 34.7, RDW Std Deviation 46.5 H, RDW Coeff of [place] 13.1, Plt Count 165, MPV 11.1, Immature Gran % (Auto) 0.700, Neut % (Auto) 83.6 H, Lymph % (Auto) 3.7 L, [place] % (Auto) 9.7, Eos % (Auto) 1.8, Baso % (Auto) 0.5, Absolute Neuts (auto) 8.4 H, Absolute Lymphs (auto) 0.37 L, Nucleated RBC % 0, Platelet Estimate ADEQUATE, RBC Morphology NORM C+C 11/29/19 14:05: Sodium 129 L, Potassium 3.8, Chloride 93 L, Carbon Dioxide 30.0, Anion Gap 6, BUN 40 H, Creatinine 1.38 H, Estim Creat Clear Calc 46.08, Est GFR (MDRD) Af Amer 64, Est GFR (MDRD) Non-Af 53 L, BUN/Creatinine Ratio 29.0 H, Glucose 119 H, Calcium 9.0, Total Bilirubin 1.40 H, AST 37, ALT 34, Alkaline Phosphatase 158 H, Total Creatine Kinase 126, Troponin I < 0.015, Total Protein 7.1, Albumin 3.1 L, Globulin 4.0, Albumin/Globulin Ratio 0.8 L 11/29/19 14:05: Lactic Acid 1.7 11/29/19 14:05: TSH 6.67 H 11/29/19 15:50: Urine Color Yellow, Urine Clarity Sl. Cloudy, Urine pH 6.0, Ur Specific [place] 1.015, Urine Protein 100 H, Urine Glucose (UA) Normal, Urine Ketones 5 H, Urine Occult Blood Negative, Urine Nitrite Negative, Urine Bilirubin Negative, Urine Urobilinogen 1 H, Ur Leukocyte Esterase 25 H, Urine RBC 0-5 SEEN, Urine WBC 0-5 SEEN, Ur Squamous Epith Cells 0-5 SEEN, Urine Bacteria 0 SEEN, Urine Mucus 0 SEEN 11/29/19 18:15: Troponin I 0.017 11/29/19 20:40: Troponin I < 0.015 11/30/19 06:43: POC Glucose 107 11/30/19 08:54: WBC 7.6, RBC 3.59 L, Hgb 12.1 L, Hct 35.4 L, MCV 98.6 H, MCH 33.7 H, MCHC 34.2, RDW Std Deviation 46.4 H, RDW Coeff of [place] 12.9, Plt Count 144 L, MPV 10.6 11/30/19 08:54: Sodium 132 L, Potassium 3.3 L, Chloride 99, Carbon Dioxide 27.0, Anion Gap 6, BUN 34 H, Creatinine 1.03, Estim Creat Clear Calc 61.74, Est GFR (MDRD) Af Amer 89, Est GFR (MDRD) Non-Af 74, BUN/Creatinine Ratio 33.0 H, Glucose 129 H, Calcium 8.0 L, Magnesium 1.4 L 11/30/19 08:54: Free T4 1.05, Free T3 pg/dL 2.4 Current Medications Acetaminophen (Tylenol) 500 mg PO Q6H PRN PRN PRN Reason: Pain Score 1-5/10 Albuterol Sulfate (Ventolin Aerosols) 2.5 mg INHALATION Q4H PRN PRN Reason: SOB &/OR WHEEZING Last Admin: 11/30/19 11:08 Dose: 2.5 mg Documented by: Aspirin (Ecotrin) 81 mg PO DAILY@0800 [facility] Last Admin: 11/30/19 08:30 Dose: 81 mg Documented by: Atorvastatin Calcium (Lipitor) 80 mg PO QHS [facility] Last Admin: 11/29/19 22:28 Dose: 80 mg Documented by: Calamine/Phenol (Calmoseptine Ointment) 1 applic TOPICAL TID [facility]; Protocol Cephalexin (Keflex) 500 mg PO Q6 [facility] Last Admin: 11/30/19 06:44 Dose: 500 mg Documented by: Dextrose (D50w Syringe) 0 gm IV X1 PRN; Protocol PRN Reason: Hypoglycemia Enoxaparin Sodium (Lovenox) 40 mg SC DAILY [facility] Last Admin: 11/30/19 08:30 Dose: 40 mg Documented by: Erythromycin () 1 applic RIGHT EYE QHS [facility] Last Admin: 11/29/19 22:26 Dose: 1 applic Documented by: Glucagon () 1 mg IM .X1 PRN PRN Reason: Hypoglycemia Multivitamins/Minerals (Multivitamin With Minerals (Bkc)) 1 tablet PO DAILY@0800 [facility] Last Admin: 11/30/19 08:30 Dose: 1 tablet Documented by: Multivitamins/Minerals (Healthy Eyes (Bkc)) 1 capsule PO BID [facility] Last Admin: 11/30/19 08:30 Dose: 1 capsule Documented by: Non-Formulary Medication (Ofloxacin) 1 drp RIGHT EYE 4X/DAY [facility] Nutritional Formula (Lactose Free) (Glucerna Shake) 120 ml PO 4X/DAY [facility] Last Admin: 11/29/19 22:28 Dose: 120 ml Documented by: Ondansetron HCl (Zofran) 4 mg IV Q8H PRN PRN PRN Reason: NAUSEA/VOMITING Sodium Chloride () 10 - 40 ml IV UD PRN PRN Reason: SALINE FLUSH Thiamine HCl (Vitamin B1) 100 mg PO BIDCM [facility] Last Admin: 11/30/19 08:30 Dose: 100 mg Documented by: Medical Necessity - Tobacco Use Smoking Status: Former smoker Assessment/Plan All Active Problems (Last Reviewed 11/29/19 @ 13:10 by Candy Santamaria) Preop cardiovascular exam (Acute) Near syncope (Acute) Abdominal aortic aneurysm (AAA) (Resolved) History of laryngeal cancer (Resolved) Dehydration (Resolved) Hyperkalemia (Resolved) SOB (shortness of breath) (Resolved) 1. Debility with frequent falls- PT/OT. Patient has a history of alcohol abuse with daily alcohol use. Suspect contributing to frequent falls. Fall precautions. Await PT recommendations. 2. Hypotension-suspect secondary to dehydration as well as antihypertensive regimen. Hypotension resolved. 3. Acute kidney injury-resolved with hydration. Trend BMP. 4. Diarrhea- resolved currently. Stool studies ordered to further reoccurrence. 5. Chronic atrial fibrillation with bradycardia-mild. Carvedilol on hold. Will resume at lower dose when heart rate improved. 6. Alcohol abuse-encouraged cessation. Continue thiamine, folic acid, multivitamin supplementation. CIWA. 7. History of laryngeal cancer status post laryngectomy, prior tracheostomy 8. Chronic COPD-no exacerbation. As needed albuterol aerosol. 9. Hypertension-antihypertensive regimen on hold. 10. Hyperlipidemia-continue statin. 11. PVD-continue aspirin, statin. 12. Carotid stenosis-continue aspirin, statin. 13. AAA-continue outpatient monitoring. DVT prophylaxis-Lovenox subcu This patient was seen by HAWK Rodriguez under the supervision of Dr. Medina. <Jimmy Medina - Last Filed: 11/30/19 14:05> - Physical Exam Vitals/I&O's: Vital Signs Temp Pulse Resp BP Pulse Ox 98.2 F 49 L 16 150/72 H 94 11/30/19 08:15 11/30/19 11:08 11/30/19 11:08 11/30/19 08:36 11/30/19 08:15 Oxygen Delivery Method Room Air Weight: 94.1 kg Body Mass Index (BMI) 28.0 Orthostatic Vital Signs Start: 11/30/19 08:36 Freq: q24h Status: Active Protocol: Activity Type Activity Date Activity User E-Sign Co-Sign Detail Recorded Client Recorded Date Recorded By Document 11/30/19 08:36 [facility] [id number] 11/30/19 08:45 [facility] 11/30/19 08:36 Orthostatic Vitals Standing -Blood Pressure (90/60-120/80) 140/65 H -Extremity Use Left Arm -Pulse Rate (60-100) 56 L Sitting -Blood Pressure (90/60-120/80) 144/76 H -Extremity Use Left Arm -Pulse Rate (60-100) 63 Lying -Blood Pressure (90/60-120/80) 150/72 H -Extremity Use Left Arm -Pulse Rate (60-100) 54 L Intake and Output for Last 24 Hours 11/28/19 11/29/19 11/30/19 23:59 23:59 23:59 Intake Total 1290 / 1650 2977.5 / 2977.5 Output Total 1050 / 1050 Balance 1290 / 1350 1927.5 / 1927.5 Laboratory Results 11/29/19 14:05: WBC 10.0, RBC 4.01 L, Hgb 13.6, Hct 39.2 L, MCV 97.8 H, MCH 33.9 H, MCHC 34.7, RDW Std Deviation 46.5 H, RDW Coeff of [place] 13.1, Plt Count 165, MPV 11.1, Immature Gran % (Auto) 0.700, Neut % (Auto) 83.6 H, Lymph % (Auto) 3.7 L, [place] % (Auto) 9.7, Eos % (Auto) 1.8, Baso % (Auto) 0.5, Absolute Neuts (auto) 8.4 H, Absolute Lymphs (auto) 0.37 L, Nucleated RBC % 0, Platelet Estimate ADEQUATE, RBC Morphology NORM C+C 11/29/19 14:05: Sodium 129 L, Potassium 3.8, Chloride 93 L, Carbon Dioxide 30.0, Anion Gap 6, BUN 40 H, Creatinine 1.38 H, Estim Creat Clear Calc 46.08, Est GFR (MDRD) Af Amer 64, Est GFR (MDRD) Non-Af 53 L, BUN/Creatinine Ratio 29.0 H, Glucose 119 H, Calcium 9.0, Total Bilirubin 1.40 H, AST 37, ALT 34, Alkaline Phosphatase 158 H, Total Creatine Kinase 126, Troponin I < 0.015, Total Protein 7.1, Albumin 3.1 L, Globulin 4.0, Albumin/Globulin Ratio 0.8 L 11/29/19 14:05: Lactic Acid 1.7 11/29/19 14:05: TSH 6.67 H 11/29/19 15:50: Urine Color Yellow, Urine Clarity Sl. Cloudy, Urine pH 6.0, Ur Specific [place] 1.015, Urine Protein 100 H, Urine Glucose (UA) Normal, Urine Ketones 5 H, Urine Occult Blood Negative, Urine Nitrite Negative, Urine Bilirubin Negative, Urine Urobilinogen 1 H, Ur Leukocyte Esterase 25 H, Urine RBC 0-5 SEEN, Urine WBC 0-5 SEEN, Ur Squamous Epith Cells 0-5 SEEN, Urine Bacteria 0 SEEN, Urine Mucus 0 SEEN 11/29/19 18:15: Troponin I 0.017 11/29/19 20:40: Troponin I < 0.015 11/30/19 06:43: POC Glucose 107 11/30/19 08:54: WBC 7.6, RBC 3.59 L, Hgb 12.1 L, Hct 35.4 L, MCV 98.6 H, MCH 33.7 H, MCHC 34.2, RDW Std Deviation 46.4 H, RDW Coeff of [place] 12.9, Plt Count 144 L, MPV 10.6 11/30/19 08:54: Sodium 132 L, Potassium 3.3 L, Chloride 99, Carbon Dioxide 27.0, Anion Gap 6, BUN 34 H, Creatinine 1.03, Estim Creat Clear Calc 61.74, Est GFR (MDRD) Af Amer 89, Est GFR (MDRD) Non-Af 74, BUN/Creatinine Ratio 33.0 H, Glucose 129 H, Calcium 8.0 L, Magnesium 1.4 L 11/30/19 08:54: Free T4 1.05, Free T3 pg/dL 2.4 11/30/19 12:02: POC Glucose 144 H Current Medications Acetaminophen (Tylenol) 500 mg PO Q6H PRN PRN PRN Reason: Pain Score 1-5/10 Albuterol Sulfate (Ventolin Aerosols) 2.5 mg INHALATION Q4H PRN PRN Reason: SOB &/OR WHEEZING Last Admin: 11/30/19 11:08 Dose: 2.5 mg Documented by: Aspirin (Ecotrin) 81 mg PO DAILY@0800 [facility] Last Admin: 11/30/19 08:30 Dose: 81 mg Documented by: Atorvastatin Calcium (Lipitor) 80 mg PO QHS [facility] Last Admin: 11/29/19 22:28 Dose: 80 mg Documented by: Calamine/Phenol (Calmoseptine Ointment) 1 applic TOPICAL TID [facility]; Protocol Cephalexin (Keflex) 500 mg PO Q6 [facility] Last Admin: 11/30/19 12:07 Dose: 500 mg Documented by: Dextrose (D50w Syringe) 0 gm IV X1 PRN; Protocol PRN Reason: Hypoglycemia Enoxaparin Sodium (Lovenox) 40 mg SC DAILY [facility] Last Admin: 11/30/19 08:30 Dose: 40 mg Documented by: Erythromycin () 1 applic RIGHT EYE QHS [facility] Last Admin: 11/29/19 22:26 Dose: 1 applic Documented by: Glucagon () 1 mg IM .X1 PRN PRN Reason: Hypoglycemia Multivitamins/Minerals (Multivitamin With Minerals (Bkc)) 1 tablet PO DAILY@0800 [facility] Last Admin: 11/30/19 08:30 Dose: 1 tablet Documented by: Multivitamins/Minerals (Healthy Eyes (Bkc)) 1 capsule PO BID [facility] Last Admin: 11/30/19 08:30 Dose: 1 capsule Documented by: Non-Formulary Medication (Ofloxacin) 1 drp RIGHT EYE 4X/DAY [facility] Nutritional Formula (Lactose Free) (Ensure Enlive) 120 ml PO 4X/DAY [facility] Ondansetron HCl (Zofran) 4 mg IV Q8H PRN PRN PRN Reason: NAUSEA/VOMITING Sodium Chloride () 10 - 40 ml IV UD PRN PRN Reason: SALINE FLUSH [facility]) [facility] Last Admin: 11/30/19 08:30 Dose: 100 mg Documented by: Assessment/Plan This patient was seen in conjunction with HAWK Rodriguez . I have independently interviewed and examined the patient and reviewed pertinent historical, laboratory, and other data. Please refer to HAWK Rodriguez note for details of this patient's presentation, findings, and recommendations. I have reviewed HAWK Rodriguez note and concur with documented findings. In brief, patient 79-year-old gentleman presented with frequent falls sent from his PCPs office with hypotension. An assessment of physical debility with adult failure to thrive made admitted to monitored bed for further management Physical Examination: GENERAL: cooperative HEENT: Atraumatic; EYES; Anicteric, Normal Conjunctiva NECK; supple, normal thyroid, RESPIRATORY: Diminished to auscultation CARDIOVASCULAR: Regular S1 S2, NEURO: Awake; no lateralizing signs. SKIN: No Rash PSYCH; Flat affect Assessment: 1. Adult failure to thrive 2. Hypotension 3. Essential hypertension (antihypertensives on hold) 4. Diarrhea 5. Acute kidney injury 6. Chronic A. fib 7. History of laryngeal cancer status post laryngectomy with previous tracheotomy 8. Dyslipidemia 9. Peripheral vascular disease with history of carotid artery stenosis 10. AAA 11. Chronic alcohol abuse 12. COPD Recommendations: 1. I have discussed the results of my overview and impressions with the patient 2. Options for management were reviewed Inpatient E&M: [id number] [facility] L3
--- NOTE | 2019-11-30 11:50 | CASEMGMT ---
Addendum entered by Carmen Gonzales 11/30/19 16:58: 1410: Call received from Trinh @ [facility]. She states they are able to accept pt, but d/t staffing would not be able to do start of care until Mon or . Pt made aware and he is agreeable to this. Addendum entered by Carmen Gonzales 11/30/19 16:50: 1235: PT/OT evals have been completed and SNF is recommended per verbal report from therapy. MIESHA CM to room to talk w/pt and daughter, Edyta, who is at bedside. Discussed discharge planning and options again, including SNF vs HHC, Pt/dtr aware PT/OT recommending SNF. Pt states now that he does not want to go to SNF, that he wants to go home and would like [facility]. Pt and daughter both feel pt would be safe returning home. Daughter states she lives 2 minutes away and can check on him daily. Daughter/pt made aware that [facility] may not be able to accept him and this may not be determined until Monday. Daughter/pt provided w/[facility] contact info and daughter to f/u with them on Monday. She is aware if [facility] is not able to accept him, to contact pt's PCP for C set up thru PCP. Dtr/pt given list of other local [facility] agencies. Daughter voices understanding. Dtr/pt provided w/list of local companies that provided Medical alert buttons at this time per pt request. Call placed to [facility] nurse on-call and she was made aware pt may discharge Monday and would like [facility]. Original Note: RN CM DIRECTOR EMPLOYEE COMMUNICATION[employer] CM to room to meet with patient for initial transition planning/care coordination assessment. RN MARVEL introduced self and role at [facility]. Pt expresses understanding and consents to assessment at this time. Pt sitting up in bed in no distress at this time. Pt has a trach and able to communicate by mouthing words and hand gestures, nodding, etc. Pt is A/O at this time and answers all questions appropriately. Care providers, pharmacy, and demographics verified/updated at this time. PCP: Ulises Malcolm Specialists: none Preferred Pharmacy: [facility]. [facility] if [facility] is not open Insurance: Jw ABDULLAHI Prescription Benefit: Yes Living Will/HPOA: Per daughter, Miryam Lan, pt has both LW and Healthcare POA and she is the POA. Edyta states she will try and find copies and bring them in to be placed on file @ [facility]. LNOK: 2 daughters: Miryam Lan and Omaira. Living Arrangements: Lives in one-story home w/5 steps to enter. States able to navigate the stairs okay. Receives home delivered meals, one meal a day. States he is independent w/ADL's. Dtrs assist with grocery shopping and home mgmt tasks such as laundry and cleaning. Daughter goes with him for doctor appts. Pt states he manages his own medications. Transportation: Daughter will take him home @ discharge DME: States has the following DME: cane, lift chair, rails/grab bars, walk-in shower w/seat, hand held shower, walker, W/C, nebulizer Pt states would like info on Medical Alert button. HHC/SNF: No hx of SNF. Has used HHC in the past. Pt has had frequent falls @ home. PT/OT evals pending. Discussed options of SNF vs HHC. Pt states he prefers to go home and would like HHC. He did state if therapy recommended SNF after they evaluate him, that he would be willing to go to SNF @ d/c. Pt wishes to return home w/HHC and states has no concerns with going home at time of discharge. Pt states he drinks on average 2 shots of Vodka a day, but states has not been drinking that much lately and states it has been 3 days since his last drink. Denies smoking. CM to follow for for discharge planning/needs. Pt voices no further concerns/needs at this time. Advised pt to ask for CM if any further questions/concerns/needs arise. Voices understanding. PLAN: TBD. PT/OT evals pending. Keshav BARBOSA RN CM
[2019-11-30 12:16] LABS: Bedside Glucose 144 mg/dL (70-110)
[2019-11-30] MEDS: Menthol/Lanolin/Calamine/Znox 113 GM Tube 1 APPLIC TOPICAL ×2 (14:51→21:08)
--- NOTE | 2019-11-30 17:09 | EKG12_ITS ---
Test Reason : RHYTHM CHANGE Blood Pressure : / mmHG Vent. Rate : 065 BPM Atrial Rate : 039 BPM P-R Int : 000 ms QRS Dur : 106 ms QT Int : 450 ms P-R-T Axes : 000 018 087 degrees QTc Int : 468 ms Atrial fibrillation Abnormal ECG Confirmed by LIBIA DIETZ, HAVEN ([id number]), newspaper editor TATYANA SANCHEZ ([id number]) on 12/04/2019 8:57:25 AM Referred By: JEIMY Confirmed By:HAVEN REZA MD
[2019-11-30 17:46] LABS: Bedside Glucose 148 mg/dL (70-110)
[2019-11-30] MEDS: Erythromycin Base 1 OPTH.TUBE 1 APPLIC RIGHT EYE (21:08)
[2019-11-30] MEDS: Atorvastatin Calcium 80 MG Tablet PO (21:09)
[2019-11-30 22:20] LABS: Bedside Glucose 98 mg/dL (70-110)
[2019-12-01] VITALS (14 sets, daily range): BP systolic 119–219; BP diastolic 62–100; PULSE 46–68; RESP 16–20; TEMP 36.6–36.8; O2SAT 95–97
--- NOTE | 2019-12-01 02:25 | NURSING ---
Dr. Sellers notified of patient's BP. Dr. Sellers stated that she will enter orders.
[2019-12-01] MEDS: Albuterol 2.5 MG/3 ML VIAL.NEB. INHALATION ×3 (02:37→11:15)
[2019-12-01] MEDS: hydrALAZINE 20 MG/ML Vial 10 MG IV ×3 (02:54→08:30)
[2019-12-01] MEDS: hydroCHLOROthiazide 25 MG Tablet PO (02:56)
[2019-12-01] MEDS: Losartan Potassium 100 MG Tablet PO (02:56)
[2019-12-01] MEDS: 0.9% Saline Lock 10 ML Syringe IV ×2 (04:16→08:31)
[2019-12-01 05:57] LABS: Hematocrit 36.7 % (40-54); Hemoglobin 12.6 g/dL (13.0-16.5); Mean Corp Hgb Conc 34.3 g/dL (32-36); Mean Corpuscular Hgb 33.7 pg (27.0-32.0); Mean Corpuscular Volume 98.1 fL (80-94); Mean Platelet Vol. 10.5 fl (6.2-12.0); Platelet Count 141 K/mm3 (150-450); RBC Distribution Width CV 13.1 % (11.6-14.6); RBC Distribution Width SD 46.8 fl (35.1-43.9); Red Blood Count 3.74 M/mm3 (4.6-6.2); White Blood Count 10.2 K/mm3 (4.4-11.0)
[2019-12-01] MEDS: Cephalexin 500 MG Capsule PO ×2 (06:02→11:45)
[2019-12-01] MEDS: Menthol/Lanolin/Calamine/Znox 113 GM Tube 1 APPLIC TOPICAL (06:02)
[2019-12-01 06:21] LABS: Anion Gap 6 (5-15); BUN 25 mg/dL (7-18); BUN/Creat Ratio 34.2 RATIO (10-20); Calcium,Total 8.7 mg/dL (8.5-10.1); Chloride 101 mmol/L (98-107); Creatinine, Serum 0.73 mg/dL (0.70-1.30); EST Glomerular Filtration Rate 109 mL/min (>60); Est Glom Filt Rate - Afr Amer 132 mL/min (>60); Estimated Creatinine Clearance 63.59 ml/min; Glucose 103 mg/dL (74-106); Magnesium 1.6 mg/dL (1.6-2.6); Potassium 3.2 mmol/L (3.5-5.1); Sodium Level 133 mmol/L (136-145)
[2019-12-01] MEDS: Enoxaparin 40 MG/0.4 ML Syringe SC (08:32)
[2019-12-01] MEDS: Aspirin E.C. 81 MG Tablet PO (08:33)
[2019-12-01] MEDS: Multivitamin (Healthy Eyes) Capsule 1 CAP PO (08:33)
[2019-12-01] MEDS: Thiamine Hydrochloride 100 MG Tablet PO (08:33)
[2019-12-01] MEDS: Multivitamins,Ther W-Minerals Tablet 1 TABLET PO (08:33)
--- NOTE | 2019-12-01 11:36 | DCINST_ITS ---
- Discharge Diagnoses Current Active Problems: Current Active and Chronic Problems (Last Reviewed 11/29/19 @ 13:10 by Candy Santamaria) Hypotension Dehydration You will use the following diet at home:: Cardiac Discharge Activity: Return to Normal Activity Call your doctor if you observe: Shortness of breath, Dizziness, Fainting spells, Chest pain Additional Instructions: Hold home blood pressure regimen for systolic blood pressure (top number) less than 90. Allergies/Adverse Reactions: Allergies iodine Allergy (Intermediate, Verified 11/29/19 13:10) Unknown Medications to take at Discharge Albuterol Sulfate [Ventolin Hfa] 2 puff INHALATION Q4H PRN 08/18/16 Multivit-Min/FA/Lycopen/Lutein [Centrum Silver Men Tablet] 1 ea PO DAILY 08/18/16 Acetaminophen [Tylenol] 500 mg PO Q6H PRN PRN #20 tab 11/23/19 albuterol sulfate 2.5 mg INHALATION Q4H PRN ml 11/27/19 atorvastatin 80 mg tablet 80 mg PO QHS tab 11/27/19 carvedilol 25 mg tablet 25 mg PO BID 11/27/19 thiamine HCl (vitamin B1) 100 mg tablet 100 mg PO BID tab 11/27/19 vitamins A,C,[id number] 14,320 unit-226 mg-200 unit capsule 1 cap PO BID cap 11/27/19 Aspirin [Aspirin EC] 81 mg PO DAILY 11/29/19 Erythromycin Ophthalmic 1 applic RIGHT EYE QHS 11/29/19 Ofloxacin 1 drp RIGHT EYE 4X/DAY 11/29/19 Cephalexin [Keflex] 500 mg PO Q6 5 Days #20 cap 12/01/19 Losartan Potassium [Cozaar] 50 mg PO BID #60 tab 12/01/19 Menthol/Lanolin/Calamine/Znox [Calmoseptine Ointment] 1 applic TOPICAL TID tube 12/01/19 The following prescriptions were given: Losartan Potassium [Cozaar] 50 mg PO BID #60 tab Transmission Status: [id number] Cephalexin [Keflex] 500 mg PO Q6 5 Days #20 cap Transmission Status: [id number] Primary Care Physician: Maninder Malcolm PA [Primary Care Provider] - Please follow up with your Primary Care Physician in: 1 Week Test Results: Test results from this visit will be discussed in further detail at your follow- up appointment, if applicable. Please Follow Up With: Michael Donovan MD When: 2 Weeks Proposed Discharge Date: 12/01/19
--- NOTE | 2019-12-01 11:39 | PCM.DC.SUM ---
<Anna Chacon - Last Filed: 12/01/19 11:49> Discharge Date and Diagnosis Date of Admission: 11/29/19 Date of Discharge: 12/01/19 - Primary Discharge Diagnosis Acute Problems: 1. Debility with frequent falls 2. Hypotension-secondary to dehydration as well as antihypertensive regimen. 3. Acute kidney injury 4. Left lower extremity cellulitis 5. Diarrhea- resolved. 6. Chronic atrial fibrillation with bradycardia 7. Alcohol abuse 8. History of laryngeal cancer status post laryngectomy, prior tracheostomy 8. Chronic COPD 10. Hypertension 11. Hyperlipidemia 12. PVD 13. Carotid stenosis 14. AAA - Secondary Discharge Diagnosis Chronic Problems: Chronic Problems (Last Reviewed 11/29/19 @ 13:10 by Candy Santamaria) Chronic atrial fibrillation (Chronic) Bilateral carotid artery stenosis (Chronic) WILLIAM 70-99% LIC < 50% 2010 Nonobstructive atherosclerosis of coronary artery (Chronic) Essential hypertension (Chronic) HLD (hyperlipidemia) (Chronic) Hospital Course and Treatment Imaging Results: Diagnostic Data Chest X-Ray 11/29/19 14:20 IMPRESSION: Cardiomegaly. Stable mild degree of the pleural parenchymal changes at the left lung base. Electronically Signed: Gurinder De Jesus, at 14:58 EDT , Service support , Operations: None Procedures: None Summary of Care Provided: The patient is a 79 year old M admitted 11/29/2019 due to mechanical fall, weakness. 1. Debility with frequent falls-Patient has a history of alcohol abuse with daily alcohol use. Suspect contributing to frequent falls. PT recommended SNF however patient and family declined. Home with home health at NH. 2. Hypotension-secondary to dehydration as well as antihypertensive regimen. BP improved. Continue home carvedilol 25mg BID. HCTZ discontinued. Continue Losartan 50mg BID. Instructed to continue blood pressure monitoring at home. Follow-up with cardiology in 2 weeks. 3. Acute kidney injury-resolved with hydration. HCTZ discontinued at discharge. 4. Left lower extremity cellulitis-improved. Continue course of Keflex at discharge. 5. Diarrhea-resolved. C. difficile negative. 6. Chronic atrial fibrillation with bradycardia-bradycardia improved. Continue home carvedilol regimen. Continue aspirin. Not on anticoagulation. 7. Alcohol abuse-encouraged cessation. Continue thiamine, multivitamin supplementation. 8. History of laryngeal cancer status post laryngectomy, prior tracheostomy 8. Chronic COPD-no exacerbation. 10. Hypertension-home antihypertensive regimen adjusted as noted above. 11. Hyperlipidemia-continue statin. 12. PVD-continue aspirin, statin. 13. Carotid stenosis-continue aspirin, statin. 14. AAA-continue outpatient monitoring. General: Alert, Oriented x3, Cooperative HEENT: Atraumatic, PERRLA, EOMI, Normocephalic Oral: Dry Mucosa Neck: Supple, No JVD, Negative Carotid Bruits, - - Prior trach insertion site Lungs: Clear to auscultation, Diminished Cardiovascular: - - Atrial fibrillation, rate controlled Abdomen: Bowel Sounds Present, Soft, Non Tender, Non-Distended Extremities: No clubbing, No cyanosis, No edema, Capillary Refill Less than 3 Seconds Skin: No rashes, No breakdown, - - Mild abrasions buttock area secondary to scratching. Generalized superficial abrasions bilateral lower extremities. Musculoskeletal: No Tenderness to Palpation of Joints or Extremities Neurological: Cranial nerves II-XII grossly intact, Neuro grossly intact Psych/Mental Status: Normal Affect, Appropriate Patient seen and examined prior to discharge. Physical assessment as noted above. Patient is stable for discharge with follow up recommendations as noted above. This patient was seen by HAWK Rodriguez under the supervision of Dr. Medina. - Physical Exam Vitals/I&O's: Vital Signs Temp Pulse Resp BP Pulse Ox 97.9 F 51 L 19 H 178/82 H 97 12/01/19 08:15 12/01/19 11:11 12/01/19 11:11 12/01/19 08:30 12/01/19 08:15 Oxygen Delivery Method Room Air Weight: 207 lb 7.28 oz Body Mass Index (BMI) 28.0 Orthostatic Vital Signs Start: 11/30/19 08:36 Freq: q24h Status: Active Protocol: Activity Type Activity Date Activity User E-Sign Co-Sign Detail Recorded Client Recorded Date Recorded By Document 11/30/19 08:36 [facility] [id number] 11/30/19 08:45 [facility] 11/30/19 08:36 Orthostatic Vitals Standing -Blood Pressure (90/60-120/80) 140/65 H -Extremity Use Left Arm -Pulse Rate (60-100) 56 L Sitting -Blood Pressure (90/60-120/80) 144/76 H -Extremity Use Left Arm -Pulse Rate (60-100) 63 Lying -Blood Pressure (90/60-120/80) 150/72 H -Extremity Use Left Arm -Pulse Rate (60-100) 54 L Intake and Output for Last 24 Hours 11/29/19 11/30/19 12/01/19 23:59 23:59 23:59 Intake Total 1290 / 1650 3457.5 / 3977.5 1020 / 1020 Output Total 1050 / 1175 125 / 125 Balance 1290 / 1350 2407.5 / 2802.5 895 / 895 Microbiology Past 72 Hours 11/29/19 15:06 Blood Culture (Wb) - Anticubital Left Blood Culture - Preliminary No growth in 48 hours. 11/29/19 14:05 Blood Culture (Wb) - Anticubital Right Blood Culture - Preliminary No growth in 48 hours. 11/30/19 15:20 Stool C. difficile DNA Amplification - Final Laboratory Results 11/30/19 12:02: POC Glucose 144 H 11/30/19 17:33: POC Glucose 148 H 11/30/19 21:06: POC Glucose 98 12/01/19 05:32: WBC 10.2, RBC 3.74 L, Hgb 12.6 L, Hct 36.7 L, MCV 98.1 H, MCH 33.7 H, MCHC 34.3, RDW Std Deviation 46.8 H, RDW Coeff of [place] 13.1, Plt Count 141 L, MPV 10.5 12/01/19 05:32: Sodium 133 L, Potassium 3.2 L, Chloride 101, Carbon Dioxide 26.0, Anion Gap 6, BUN 25 H, Creatinine 0.73, Estim Creat Clear Calc 63.59, Est GFR (MDRD) Af Amer 132, Est GFR (MDRD) Non-Af 109, BUN/Creatinine Ratio 34.2 H, Glucose 103, Calcium 8.7, Magnesium 1.6 Current Medications Acetaminophen (Tylenol) 500 mg PO Q6H PRN PRN PRN Reason: Pain Score 1-5/10 Albuterol Sulfate (Ventolin Aerosols) 2.5 mg INHALATION Q4H PRN PRN Reason: SOB &/OR WHEEZING Last Admin: 12/01/19 11:15 Dose: 2.5 mg Documented by: Aspirin (Ecotrin) 81 mg PO DAILY@0800 [facility] Last Admin: 12/01/19 08:33 Dose: 81 mg Documented by: Atorvastatin Calcium (Lipitor) 80 mg PO QHS [facility] Last Admin: 11/30/19 21:09 Dose: 80 mg Documented by: Calamine/Phenol (Calmoseptine Ointment) 1 applic TOPICAL TID [facility]; Protocol Last Admin: 12/01/19 06:02 Dose: 1 applicatio Documented by: Cephalexin (Keflex) 500 mg PO Q6 [facility] Last Admin: 12/01/19 06:02 Dose: 500 mg Documented by: Dextrose (D50w Syringe) 0 gm IV X1 PRN; Protocol PRN Reason: Hypoglycemia Enoxaparin Sodium (Lovenox) 40 mg SC DAILY [facility] Last Admin: 12/01/19 08:32 Dose: 40 mg Documented by: Erythromycin () 1 applic RIGHT EYE QHS [facility] Last Admin: 11/30/19 21:08 Dose: 1 applic Documented by: Glucagon () 1 mg IM .X1 PRN PRN Reason: Hypoglycemia Hydralazine HCl (Apresoline Iv) 10 mg IV Q4H PRN PRN PRN Reason: SBP > 160 Last Admin: 12/01/19 08:30 Dose: 10 mg Documented by: Hydrochlorothiazide (Hctz) 25 mg PO DAILY [facility] Last Admin: 12/01/19 02:56 Dose: 25 mg Documented by: Losartan Potassium (Cozaar) 100 mg PO DAILY [facility] Last Admin: 12/01/19 02:56 Dose: 100 mg Documented by: Multivitamins/Minerals (Multivitamin With Minerals (Bkc)) 1 tablet PO DAILY@0800 [facility] Last Admin: 12/01/19 08:33 Dose: 1 tablet Documented by: Multivitamins/Minerals (Healthy Eyes (Bkc)) 1 capsule PO BID [facility] Last Admin: 12/01/19 08:33 Dose: 1 capsule Documented by: Non-Formulary Medication (Ofloxacin) 1 drp RIGHT EYE 4X/DAY [facility] Nutritional Formula (Lactose Free) (Ensure Enlive) 120 ml PO 4X/DAY [facility] Last Admin: 12/01/19 08:30 Dose: 120 ml Documented by: Ondansetron HCl (Zofran) 4 mg IV Q8H PRN PRN PRN Reason: NAUSEA/VOMITING Simethicone (Mylicon) 80 mg PO TIDPC [facility] Last Admin: 12/01/19 06:47 Dose: 80 mg Documented by: Sodium Chloride () 10 - 40 ml IV UD PRN PRN Reason: SALINE FLUSH Last Admin: 12/01/19 08:31 Dose: 10 ml Documented by: Thiamine HCl (Vitamin B1) [facility] Last Admin: 12/01/19 08:33 Dose: 100 mg Documented by: Discharge Diet: Low fat/ Low Cholesterol Discharge Activity: Return to Normal Activity Call your doctor if you observe: Shortness of breath, Dizziness, Fainting spells, Chest pain Home Medications: Medications to take at Discharge Albuterol Sulfate [Ventolin Hfa] 2 puff INHALATION Q4H PRN 08/18/16 Multivit-Min/FA/Lycopen/Lutein [Centrum Silver Men Tablet] 1 ea PO DAILY 08/18/16 Acetaminophen [Tylenol] 500 mg PO Q6H PRN PRN #20 tab 11/23/19 albuterol sulfate 2.5 mg INHALATION Q4H PRN ml 11/27/19 atorvastatin 80 mg tablet 80 mg PO QHS tab 11/27/19 carvedilol 25 mg tablet 25 mg PO BID 11/27/19 thiamine HCl (vitamin B1) 100 mg tablet 100 mg PO BID tab 11/27/19 vitamins A,C,F-cfbl-kxbvqf 14,320 unit-226 mg-200 unit capsule 1 cap PO BID cap 11/27/19 Aspirin [Aspirin EC] 81 mg PO DAILY 11/29/19 Erythromycin Ophthalmic 1 applic RIGHT EYE QHS 11/29/19 Ofloxacin 1 drp RIGHT EYE 4X/DAY 11/29/19 Cephalexin [Keflex] 500 mg PO Q6 5 Days #20 cap 12/01/19 Losartan Potassium [Cozaar] 50 mg PO BID #60 tab 12/01/19 Menthol/Lanolin/Calamine/Znox [Calmoseptine Ointment] 1 applic TOPICAL TID tube 12/01/19 Following Prescrptions Were Given to Patient: Losartan Potassium [Cozaar] 50 mg PO BID #60 tab Transmission Status: Received by [facility]/pharmacy #[id number] Cephalexin [Keflex] 500 mg PO Q6 5 Days #20 cap Transmission Status: Received by [facility]/pharmacy #[id number] Primary Care Physician: Maninder Malcolm PA [Primary Care Provider] - Please follow up with your Primary Care Physician in: 1 Week Please Follow Up With: Michael Donovan MD When: 2 Weeks Disposition: Home with Home Health Minutes spent on discharge:: 35 Patient Condition:: Stable Medical Necessity - Tobacco Use Smoking Status: Former smoker Meaningful Use Info Meaningful Use Diagnoses (Choose all that apply): None applicable <Jimmy Medina - Last Filed: 12/01/19 13:29> Discharge Date and Diagnosis - Secondary Discharge Diagnosis Chronic Problems: Chronic Problems (Last Reviewed 11/29/19 @ 13:10 by Candy Santamaria) Chronic atrial fibrillation (Chronic) Bilateral carotid artery stenosis (Chronic) WILLIAM 70-99% LIC < 50% 2010 Nonobstructive atherosclerosis of coronary artery (Chronic) Essential hypertension (Chronic) HLD (hyperlipidemia) (Chronic) Hospital Course and Treatment Summary of Care Provided: This patient was seen in conjunction with HAWK Rodriguez . I have independently interviewed and examined the patient and reviewed pertinent historical, laboratory, and other data. Please refer to HAWK Rodriguez note for details of this patient's presentation, findings, and recommendations. I have reviewed HAWK Rodriguez note and concur with documented findings. In brief, patient 79-year-old gentleman presented with frequent falls sent from his PCPs office with hypotension. An assessment of physical debility with adult failure to thrive made admitted to monitored bed for further management Assessment: 1. Adult failure to thrive 2. Hypotension 3. Essential hypertension (antihypertensives on hold) 4. Diarrhea 5. Acute kidney injury 6. Chronic A. fib 7. History of laryngeal cancer status post laryngectomy with previous tracheotomy 8. Dyslipidemia 9. Peripheral vascular disease with history of carotid artery stenosis 10. AAA 11. Chronic alcohol abuse 12. COPD Hospital course: As documented above - Physical Exam Vitals/I&O's: Vital Signs Temp Pulse Resp BP Pulse Ox 98.2 F 46 L 16 119/62 96 12/01/19 13:00 12/01/19 13:00 12/01/19 13:00 12/01/19 13:00 12/01/19 13:00 Oxygen Delivery Method Room Air Weight: 94.1 kg Body Mass Index (BMI) 28.0 Orthostatic Vital Signs Start: 11/30/19 08:36 Freq: q24h Status: Active Protocol: Activity Type Activity Date Activity User E-Sign Co-Sign Detail Recorded Client Recorded Date Recorded By Document 11/30/19 08:36 [facility] [id number] 11/30/19 08:45 [facility] 11/30/19 08:36 Orthostatic Vitals Standing -Blood Pressure (90/60-120/80) 140/65 H -Extremity Use Left Arm -Pulse Rate (60-100) 56 L Sitting -Blood Pressure (90/60-120/80) 144/76 H -Extremity Use Left Arm -Pulse Rate (60-100) 63 Lying -Blood Pressure (90/60-120/80) 150/72 H -Extremity Use Left Arm -Pulse Rate (60-100) 54 L Intake and Output for Last 24 Hours 11/29/19 11/30/19 12/01/19 23:59 23:59 23:59 Intake Total 1290 / 1650 3457.5 / 3977.5 1260 / 1260 Output Total 1050 / 1175 425 / 425 Balance 1290 / 1350 2407.5 / 2802.5 835 / 835 Microbiology Past 72 Hours 11/29/19 15:50 Urine, Clean Catch Urine Culture - Final Mixed Gram Pos & Gram Neg Org 11/29/19 15:06 Blood Culture (Wb) - Anticubital Left Blood Culture - Preliminary No growth in 48 hours. 11/29/19 14:05 Blood Culture (Wb) - Anticubital Right Blood Culture - Preliminary No growth in 48 hours. 11/30/19 15:20 Stool C. difficile DNA Amplification - Final Laboratory Results 11/30/19 17:33: POC Glucose 148 H 11/30/19 21:06: POC Glucose 98 12/01/19 05:32: WBC 10.2, RBC 3.74 L, Hgb 12.6 L, Hct 36.7 L, MCV 98.1 H, MCH 33.7 H, MCHC 34.3, RDW Std Deviation 46.8 H, RDW Coeff of [place] 13.1, Plt Count 141 L, MPV 10.5 12/01/19 05:32: Sodium 133 L, Potassium 3.2 L, Chloride 101, Carbon Dioxide 26.0, Anion Gap 6, BUN 25 H, Creatinine 0.73, Estim Creat Clear Calc 63.59, Est GFR (MDRD) Af Amer 132, Est GFR (MDRD) Non-Af 109, BUN/Creatinine Ratio 34.2 H, Glucose 103, Calcium 8.7, Magnesium 1.6 Current Medications Acetaminophen (Tylenol) 500 mg PO Q6H PRN PRN PRN Reason: Pain Score 1-5/10 Albuterol Sulfate (Ventolin Aerosols) 2.5 mg INHALATION Q4H PRN PRN Reason: SOB &/OR WHEEZING Last Admin: 12/01/19 11:15 Dose: 2.5 mg Documented by: Aspirin (Ecotrin) 81 mg PO DAILY@0800 [facility] Last Admin: 12/01/19 08:33 Dose: 81 mg Documented by: Atorvastatin Calcium (Lipitor) 80 mg PO QHS [facility] Last Admin: 11/30/19 21:09 Dose: 80 mg Documented by: Calamine/Phenol (Calmoseptine Ointment) 1 applic TOPICAL TID [facility]; Protocol Last Admin: 12/01/19 06:02 Dose: 1 applicatio Documented by: Cephalexin (Keflex) 500 mg PO Q6 [facility] Last Admin: 12/01/19 11:45 Dose: 500 mg Documented by: Dextrose (D50w Syringe) 0 gm IV X1 PRN; Protocol PRN Reason: Hypoglycemia Enoxaparin Sodium (Lovenox) 40 mg SC DAILY [facility] Last Admin: 12/01/19 08:32 Dose: 40 mg Documented by: Erythromycin () 1 applic RIGHT EYE QHS [facility] Last Admin: 11/30/19 21:08 Dose: 1 applic Documented by: Glucagon () 1 mg IM .X1 PRN PRN Reason: Hypoglycemia Hydralazine HCl (Apresoline Iv) 10 mg IV Q4H PRN PRN PRN Reason: SBP > 160 Last Admin: 12/01/19 08:30 Dose: 10 mg Documented by: Hydrochlorothiazide (Hctz) 25 mg PO DAILY [facility] Last Admin: 12/01/19 02:56 Dose: 25 mg Documented by: Losartan Potassium (Cozaar) 100 mg PO DAILY [facility] Last Admin: 12/01/19 02:56 Dose: 100 mg Documented by: Multivitamins/Minerals (Multivitamin With Minerals (Bkc)) 1 tablet PO DAILY@0800 [facility] Last Admin: 12/01/19 08:33 Dose: 1 tablet Documented by: Multivitamins/Minerals (Healthy Eyes (Bkc)) 1 capsule PO BID [facility] Last Admin: 12/01/19 08:33 Dose: 1 capsule Documented by: Non-Formulary Medication (Ofloxacin) 1 drp RIGHT EYE 4X/DAY [facility] Nutritional Formula (Lactose Free) (Ensure Enlive) 120 ml PO 4X/DAY [facility] Last Admin: 12/01/19 08:30 Dose: 120 ml Documented by: Ondansetron HCl (Zofran) 4 mg IV Q8H PRN PRN PRN Reason: NAUSEA/VOMITING Simethicone (Mylicon) 80 mg PO TIDPC [facility] Last Admin: 12/01/19 06:47 Dose: 80 mg Documented by: Sodium Chloride () 10 - 40 ml IV UD PRN PRN Reason: SALINE FLUSH Last Admin: 12/01/19 08:31 Dose: 10 ml Documented by: Thiamine HCl (Vitamin B1) [facility] Last Admin: 12/01/19 08:33 Dose: 100 mg Documented by: Inpatient E&M: [id number] Disch Hosp
--- NOTE | 2019-12-01 11:43 | PCA ---
Spoke with aliyah WHITESIDE for [facility] and notified her of discharge for today and faxed paperwork over to office.
[2019-12-01] MEDS: Carvedilol 25 MG Tablet PO (11:45)
[2019-12-01 17:03] LABS: Bedside Glucose 109 mg/dL (70-110)
[2019-12-01 17:03] LABS: Bedside Glucose 137 mg/dL (70-110)
[2019-12-01 17:03] LABS: Bedside Glucose 121 mg/dL (70-110)
--- NOTE | 2019-12-02 14:17 | CASEMGMT ---
MIESHA DC PHONE CALL DC DATE: 12.01.2019 DC DISPOSITION: Home with [facility] to start Mon or DC DIAGNOSIS: Debility, falls LACE/STRATA: 03/17 F/U APPTS MADE PRIOR TO DC: no, weekend dc. Attempted call to phone. No answer, and no messaging with name identifier. Manuel BARBOSA RN AC
== END 2019-12-01 14:54 | disposition home health service (06) | DRG 683 ==
LOC: ED 14:25 → PCU 16:44
PROVIDERS: Nurse Practitioner Family; Admitting Provider Student in an Organized Health Care Education/Training Program; Emergency Provider Emergency Medicine; PCP Physician Assistant; Visit Provider Internal Medicine
DX: N17.9 Acute kidney failure, unspecified (principal); L03.116 Cellulitis of left lower limb; I48.20 Chronic atrial fibrillation, unspecified; E87.1 Hypo-osmolality and hyponatremia; I95.2 Hypotension due to drugs; T46.5X5A Adverse effect of other antihypertensive drugs, initial encounter; E86.0 Dehydration; R53.81 Other malaise; R29.6 Repeated falls; R19.7 Diarrhea, unspecified; R62.7 Adult failure to thrive; R53.1 Weakness; F10.10 Alcohol abuse, uncomplicated; Y90.9 Presence of alcohol in blood, level not specified; J44.9 Chronic obstructive pulmonary disease, unspecified; E78.5 Hyperlipidemia, unspecified; I11.9 Hypertensive heart disease without heart failure; I73.9 Peripheral vascular disease, unspecified; I71.4 Abdominal aortic aneurysm, without rupture; I65.23 Occlusion and stenosis of bilateral carotid arteries; I25.10 Atherosclerotic heart disease of native coronary artery without angina pectoris; Z85.21 Personal history of malignant neoplasm of larynx; Z79.82 Long term (current) use of aspirin; Z79.899 Other long term (current) drug therapy; Z87.891 Personal history of nicotine dependence
CPT/HCPCS: 36415; 71046; 80048; 80053; 81001; 82550; 82962; 83605; 83735; 84439; 84443; 84481; 84484; 85025; 85027; 87040; 87086; 87088; 87493; 93005; 94640; 97162; 97165; 97802; 99285; J7030; P9612; A4216; J0696

== ENCOUNTER 2019-12-06 13:54 | Inpatient (IN) | payer MEDICARE, BC, SELFPAY ==
[2019-11-29 17:50] VITALS: BMI 28.0
[2019-12-06] VITALS (11 sets, daily range): BP systolic 120–212; BP diastolic 53–107; PULSE 38–57; RESP 16–20; TEMP 36.4–36.8; O2SAT 94–98; BMI 31.1; BMI 29.0
--- NOTE | 2019-12-06 14:28 | EKG12_ITS ---
Test Reason : DELLA Blood Pressure : / mmHG Vent. Rate : 045 BPM Atrial Rate : 043 BPM P-R Int : 000 ms QRS Dur : 096 ms QT Int : 474 ms P-R-T Axes : 000 035 065 degrees QTc Int : 410 ms Atrial fibrillation Abnormal ECG Confirmed by AMBER YI MD ([id number]), video editor SAVANNAH OSBORNE ([id number]) on 12/09/2019 1:05:49 PM Referred By: Confirmed By:AMBER YI MD
--- NOTE | 2019-12-06 14:29 | ED.VIS.GEN ---
History of Present Illness Chief Complaint: General Illness Informant: Patient Narrative: 79-year-old male with past medical history of laryngeal cancer, COPD, hypertension, atrial fibrillation with concern for low heart rate. Was seen by home health care and found to be bradycardic and sent to the emergency department. Patient has no complaints at this time. Past Medical History - Allergies and Home Meds Allergies/Adverse Reactions: Allergies iodine Allergy (Intermediate, Verified 12/06/19 13:57) Unknown Primary Care Physician: Maninder Malcolm PA [Primary Care Provider] - Prior records reviewed: Yes Past Medical History: - - HTN, COPD, Atrial fib Surgical History: - - Normal aortic aneurysm repair, laryngectomy with tracheostomy for history of laryngeal cancer in 1994, Lives: Alone Smoking Status: Former smoker - Family History Maternal Family History: Family History (Last Reviewed 11/29/19 @ 13:10 by Candy Santamaria) Father Cancer Sister Myocardial infarction Mother Cancer Pulmonary embolus Brother Cancer Family History: Reports: Cancer - His mother of cancer of the uterus. He denies any family history of cardiovascular disease. Paternal Family History: Family History (Last Reviewed 11/29/19 @ 13:10 by Candy Santamaria) Father Cancer Sister Myocardial infarction Mother Cancer Pulmonary embolus Brother Cancer Family History: Reports: Cancer - Father of lung cancer Review of Systems General: Denies: Chills, Fever, Sweats Eyes: Denies: Visual changes - bilaterally, Diplopia ENT: Denies: Rhinorrhea, Sore throat Cardiovascular: Denies: Chest pain, Palpitations Respiratory: Denies: Dyspnea, Cough, Dyspnea on exertion Gastrointestinal: Denies: Abdominal pain, Nausea, Vomiting, Diarrhea, Melena, Hematochezia Genitourinary: Denies: Dysuria, Hematuria, Frequency Musculoskeletal: Denies: Back pain, Extremity Pain Skin: Denies: Rash, Wounds Neurological: Denies: Headache, Weakness, Numbness Physical Exam Vital Signs/Narrative: Vital Signs Temp Pulse Resp BP Pulse Ox 12/06/19 14:23 42 L 17 202/82 H 98 12/06/19 13:57 98.3 F 45 L 16 157/107 H 96 Inital Vital Signs reviewed: Yes General: Well nourished, Well developed, No Acute Distress Head: Normocephalic, Atraumatic Eyes: Perrl, EOMI ENT: Moist mucous membranes, No rhinorrhea, - - open stoma Neck: Supple, Nontender Cardiovascular: Regular rate, Regular rhythm, No murmurs Respiratory: No distress, CTA bilaterally, Chest nontender Abdomen: Soft, Nontender, Nondistended, Normal bowel sounds Back: Nontender, Normal Inspection Extremities: Nontender, No edema Skin: Normal color, No rash Neurological: Alert, Oriented x3, Cranial nerves II-XII grossly intact, Normal Strength, Normal Sensation Psychological: Normal affect, Normal Mood Diagnostic/Tx/Re-eval Chest X-Ray - ED: 1 View, - - Bilateral infiltrates. Clinical Impression(s) from Imaging Studies Chest X-Ray 12/06/19 14:55 IMPRESSION: Bilateral pneumonia or edema. Electronically Signed: Aaron Dewitt MD at 15:32 EDT , Service support , Chest CT 12/06/19 15:47 IMPRESSION: 1. Mild to moderate pulmonary edema. 2. Small bilateral pleural effusions. 3. Cardiomegaly. 4. Emphysema with atelectasis. 5. L1 compression fracture, refer to definitive lumbar imaging from earlier same month. Electronically Signed: Purnima Pederson, at 16:31 EDT Tel , Service support , Laboratory Data 12/06/19 12/06/19 12/06/19 14:44 14:44 14:44 WBC 7.6 RBC 3.35 L Hgb 11.3 L Hct 33.0 L MCV 98.5 H MCH 33.7 H MCHC 34.2 RDW Std Deviation 45.2 H RDW Coeff of [place] 12.7 Plt Count 133 L MPV 10.3 Immature Gran % (Auto) 0.400 Neut % (Auto) 73.1 H Lymph % (Auto) 12.5 L [place] % (Auto) 11.8 H Eos % (Auto) 1.8 Baso % (Auto) 0.4 Absolute Neuts (auto) 5.6 Absolute Lymphs (auto) 0.95 Nucleated RBC % 0 Sodium 130 L Potassium 4.6 Chloride 97 L Carbon Dioxide 29.0 Anion Gap 4 L BUN 27 H Creatinine 0.79 Estim Creat Clear Calc 63.59 Est GFR (MDRD) Af Amer 120 Est GFR (MDRD) Non-Af 99 BUN/Creatinine Ratio 34.0 H Glucose 100 Calcium 8.4 L Magnesium 1.7 Troponin I < 0.015 B-Natriuretic Peptide 980.6 H - Rhythm Strip Rhythm Strip: A-fib Rate: 45 Ectopy: None - EKG Initial EKG Interpretation: - - Atrial fibrillation versus flutter with QTC of 410 ms. Rate of 45 bpm. - Medical Decision Making Patient appears well nontoxic. Bradycardic upon arrival which appears to be slow atrial fibrillation versus flutter. Patient has atrial fibrillation at baseline is currently anticoagulated. Troponin negative. BNP elevated. Chronic hyponatremia at baseline. Anemia at baseline. Chest x-ray shows bilateral effusions versus infiltrate. CT without contrast was done which shows pulmonary edema. Patient's blood pressure significantly elevated and was given 10 mg of hydralazine. Spoke with hospitalist who will admit patient for fluid management as well as blood pressure control and evaluation of persistent bradycardia. Patient stable at time of admission. Impression: 1. Bradycardia 2. Chronic atrial fibrillation 3. Pulmonary edema 4. Uncontrolled hypertension ED Disposition - Plan for ED Patient: Disposition: Acute Care Hospital [facility] Referrals: Maninder Malcolm PA [Primary Care Provider] -
[2019-12-06 14:53] LABS: Absolute Lymphocyte Count 0.95 X10^3/uL (0.83-4.51); Absolute Neutrophil Count 5.6 X10^3/uL (2.0-7.7); Basophil# 0.03 X10^3/uL; Basophil% 0.4 % (0-1); Eosinophil# 0.14 X10^3/uL; Eosinophils% 1.8 % (0-5); Hemoglobin 11.3 g/dL (13.0-16.5); Lymphocyte # 0.95 X10^3/ul (4.0); Lymphocyte % 12.5 % (19-41); Mean Corp Hgb Conc 34.2 g/dL (32-36); Mean Corpuscular Hgb 33.7 pg (27.0-32.0); Mean Corpuscular Volume 98.5 fL (80-94); Mean Platelet Vol. 10.3 fl (6.2-12.0); Monocyte% 11.8 % (0-10); NRBC Flagged by Analyzer 0 % (0-5); Neutrophil # 5.58 X10^3/uL (2.7-7.7); Neutrophil % 73.1 % (47-70); Platelet Count 133 K/mm3 (150-450); RBC Distribution Width CV 12.7 % (11.6-14.6); RBC Distribution Width SD 45.2 fl (35.1-43.9); Red Blood Count 3.35 M/mm3 (4.6-6.2); White Blood Count 7.6 K/mm3 (4.4-11.0)
--- NOTE | 2019-12-06 14:55 | RAD_ITS ---
STUDY: X-RAY CHEST REASON FOR EXAM: Male, 79 years old. BRADYCARDIA, COPD, EMPHYSEMA TECHNIQUE: Single AP portable view of the chest. COMPARISON: November 29, 2019 FINDINGS: There are monitoring devices. There is stable elevation of the left hemidiaphragm. There are bilateral lower lung groundglass and airspace increased opacities. There is no demonstrated pleural abnormality. There is mild cardiac enlargement. There are calcified mediastinal lymph nodes. Normal visualized pulmonary arteries. Normal visualized aortic arch and descending thoracic aorta. Normal visualized thoracic spine. Normal visualized ribs, clavicles, and shoulders. There is no demonstrated abnormality of the visualized soft tissue structures of the upper abdomen. RAD/Chest 1 View (Portable) IMPRESSION: Bilateral pneumonia or edema. Electronically Signed: Aaron Dewitt MD at 15:32 EDT , Service support ,
[2019-12-06 15:27] LABS: Anion Gap 4 (5-15); BUN 27 mg/dL (7-18); Calcium,Total 8.4 mg/dL (8.5-10.1); Chloride 97 mmol/L (98-107); Creatinine, Serum 0.79 mg/dL (0.70-1.30); EST Glomerular Filtration Rate 99 mL/min (>60); Est Glom Filt Rate - Afr Amer 120 mL/min (>60); Estimated Creatinine Clearance 63.59 ml/min; Glucose 100 mg/dL (74-106); Magnesium 1.7 mg/dL (1.6-2.6); Potassium 4.6 mmol/L (3.5-5.1); Sodium Level 130 mmol/L (136-145)
--- NOTE | 2019-12-06 15:47 | CT_ITS ---
STUDY: CT CHEST WITHOUT CONTRAST REASON FOR EXAM: Male, 79 years old. Dyspnea, bradycardia, history of laryngeal carcinoma with tracheostomy in [age], emphysema RADIATION DOSAGE (If Supplied By Facility): CTDIvol = ( 18.67 ) mGy, DLP = ( 624.29 ) mGycm TECHNIQUE: Transaxial imaging was performed without the administration of intravenous contrast material. Individualized dose optimization techniques were used for this CT. COMPARISON: 12-06-19, 11-23-19 FINDINGS: Lungs are moderately to severely emphysematous. There is mild to moderate pulmonary edema and small bilateral pleural effusions. There is basilar right lower lobe, left lower lobe and lingular atelectasis. Central airways are patent. There are mediastinal reactive lymph nodes. There is moderate pulmonary arterial hypertension. There is moderate cardiac megaly with enlargement of all four chambers. Aorta is of normal caliber. Pericardium is normal. There is moderate coronary artery disease. There are probable left renal cysts. There is compression fracture of L1 seen on recent prior CT/Chest without Contrast IMPRESSION: 1. Mild to moderate pulmonary edema. 2. Small bilateral pleural effusions. 3. Cardiomegaly. 4. Emphysema with atelectasis. 5. L1 compression fracture, refer to definitive lumbar imaging from earlier same month. Electronically Signed: Purnima Pederson, at 16:31 EDT Tel , Service support ,
[2019-12-06] MEDS: hydrALAZINE 20 MG/ML Vial 10 MG IV (16:23)
[2019-12-06 16:30] LABS: BNP,B-Type NATRIURETIC PEPTIDE 980.6 pg/mL (0-100)
--- NOTE | 2019-12-06 17:20 | HP.PCM_ITS ---
<Gamaliel Ennis - Last Filed: 12/06/19 17:20> Problem List (1) Hypertensive emergency Status: Acute (2) CHF (congestive heart failure) Status: Acute (3) Chronic atrial fibrillation Status: Chronic (4) Bilateral carotid artery stenosis Status: Chronic Comment: WILLIAM 70-99% LIC < 50% 2009 (5) Abdominal aortic aneurysm (AAA) Status: Resolved Comment: Repair of infrarenal abdominal aortic aneurysm w/ 18 x 9 mm bifurcated hemashield graft to bilateral common iliac arteries with a jump graft to Rt. external iliac artery 06/20/2004 (6) Essential hypertension Status: Chronic (7) HLD (hyperlipidemia) Status: Chronic (8) History of laryngeal cancer Status: Resolved Comment: had surgery with a tracheostomy in 1994 History of Present Illness Date of Admission: 12/06/19 Chief Complaint: HTN The patient is a 79 year old M with past medical history of hypertension, chronic atrial fibrillation, chronic COPD, history of laryngeal cancer in remission, status post tracheostomy, carotid stenosis, AAA, who presented to the emergency room with high blood pressure and low pulse. This was caught by his home nurse today. The patient was admitted recently, discharged November 2018 after admission for hypotension is felt to be due to dehydration and his home antihypertensive regimen. His HCTZ was stopped at that time. He appears to frequently be mildly bradycardic and his daughter confirms that he does have slow heart rate frequently in the past. Today however his blood pressure was markedly elevated with a systolic in the 200s, and his pulse being in the 30s. His daughters have been assisting with the administration of his medications to ensure that he is taking them correctly. The patient has actually been doing well at home since his last admission. He is walking well with the therapists and has had minimal complaints. His daughters are happy that he is doing well. He has had some intermittent lightheadedness and some mild dyspnea that is worse with exertion. In the emergency room he continues to have bradycardia and hypertension, his chest x-ray is consistent with some degree of heart failure and he has an elevated beta natruretic peptide. He does not have a recent echocardiogram. The patient will be admitted for hypertensive emergency with acute heart failure. [] Past Medical History Past Medical History (Chronic Problems): Chronic Problems (Last Reviewed 11/29/19 @ 13:10 by Candy Santamaria) Chronic atrial fibrillation (Chronic) Bilateral carotid artery stenosis (Chronic) WILLIAM 70-99% LIC < 50% 2010 Nonobstructive atherosclerosis of coronary artery (Chronic) Essential hypertension (Chronic) HLD (hyperlipidemia) (Chronic) Medical History: Medical History (Last Reviewed 11/29/19 @ 13:10 by Candy Santamaria) Near syncope (Acute) R55 Chronic atrial fibrillation (Chronic) I48.20 Bilateral carotid artery stenosis (Chronic) I65.23 WILLIAM 70-99% LIC < 50% 2010 Nonobstructive atherosclerosis of coronary artery (Chronic) I25.10 Abdominal aortic aneurysm (AAA) (Resolved) I71.4 Repair of infrarenal abdominal aortic aneurysm w/ 18 x 9 mm bifurcated hemashield graft to bilateral common iliac arteries with a jump graft to Rt. 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 1994 Alcohol dependence F10.20 beer daily Anxiety and depression F41.9, F32.9 BPH (benign prostatic hyperplasia) N40.0 Watkins's cyst of knee M71.20 COPD (chronic obstructive pulmonary disease) J44.9 Chronic right shoulder pain M25.511, G89.29 Erectile dysfunction N52.9 Frequent falls R29.6 Gout M10.9 History of nephrolithiasis Z87.442 Hyponatremia E87.1 Insomnia G47.00 Panlobular emphysema J43.1 Peripheral vascular occlusive disease I73.9 Claudication I73.9 Dehydration (Resolved) E86.0 History of left heart catheterization Onset Date: 05/2004 Z98.890 Hyperkalemia (Resolved) E87.5 Hypomagnesemia E83.42 MSSA (methicillin susceptible Staphylococcus aureus) infection A49.01 SOB (shortness of breath) (Resolved) R06.02 Vitreous hemorrhage of right eye H43.11 Carotid artery bruit R09.89 BL, L>R Cough (Inactive) R05 History of myocardial infarction (Inactive) I25.2 Allergies iodine Allergy (Intermediate, Verified 12/06/19 13:57) Unknown Home Medications: Ambulatory Orders Medication Instructions Recorded Albuterol Sulfate [Ventolin Hfa] 2 puff INHALATION Q4H PRN 08/18/16 Multivit-Min/FA/Lycopen/Lutein 1 ea PO DAILY 08/18/16 [Centrum Silver Men Tablet] Acetaminophen [Tylenol] 500 mg PO Q6H PRN PRN #20 tab 11/23/19 albuterol sulfate 2.5 mg INHALATION Q4H PRN ml 11/27/19 atorvastatin 80 mg tablet 80 mg PO QHS tab 11/27/19 carvedilol 25 mg tablet 25 mg PO BID 11/27/19 thiamine HCl (vitamin B1) 100 mg 100 mg PO BID tab 11/27/19 tablet vitamins A,C,D-frph-uhxgjm 14,320 1 cap PO BID cap 11/27/19 unit-226 mg-200 unit capsule Aspirin [Aspirin EC] 81 mg PO DAILY 11/29/19 Erythromycin Ophthalmic 1 applic RIGHT EYE QHS 11/29/19 Ofloxacin 1 drp RIGHT EYE 4X/DAY 11/29/19 Losartan Potassium [Cozaar] 50 mg PO BID #60 tab 12/01/19 Menthol/Lanolin/Calamine/Znox 1 applic TOPICAL TID tube 12/01/19 [Calmoseptine Ointment] Surgical History: Surgical History (Last Reviewed 11/29/19 @ 13:10 by Candy Santamaria) History of tracheostomy Z98.890 History of abdominal aortic aneurysm repair Onset Date: 06/20/04 Z98.890 Repair of infrarenal abdominal aortic aneurysm w/ 18 x 9 mm bifurcated hemashield graft to bilateral common iliac arteries with a jump graft to Rt. external iliac artery 06/20/2004 History of appendectomy Z90.49 Surgical History: - - Normal aortic aneurysm repair, laryngectomy with tracheostomy for history of laryngeal cancer in 1994, Psychiatric History: Depression Lives: Alone Smoking Status: Former smoker Tobacco Use: Non-smoker Alcohol: None - Unclear if patient still drinks or not. Drugs: None - *Family History Maternal Family History: Family History (Last Reviewed 12/06/19 @ 17:27 by RONNI Fritz) Father Cancer Sister Myocardial infarction Mother Cancer Pulmonary embolus Brother Cancer History Items: Cancer - His mother of cancer of the uterus. He denies any family history of cardiovascular disease. Paternal Family History: Family History (Last Reviewed 12/06/19 @ 17:27 by RONNI Fritz) Father Cancer Sister Myocardial infarction Mother Cancer Pulmonary embolus Brother Cancer History Items: Cancer - Father of lung cancer Review of Systems Constitutional: Denies: Chills, Fever, Weight Change HEENT: Denies: Head Aches, Sinus Congestion, Sinus Drainage Cardiovascular: Denies: Chest Pain, Palpitations Respiratory: Denies: Cough, Shortness of breath at rest, Sputum production Gastrointestinal: Denies: Abdominal Pain, Nausea, Vomiting Genitourinary: Denies: Dysuria Musculoskeletal: Denies: Joint Pain, Joint Tenderness Skin: Denies: Rash, Wounds Neurological: Denies: Numbness, Tingling, Focal weakness Psychiatric: Denies: Anxiety, Depression, Homicidal Ideations, Suicidal Ideations Hematologic/ Lymphatic: Denies: Easy Bruising, Easy Bleeding VTE Information - Inpt Only VTE Present on Admission: No VTE Mechan Device Prophylaxis: None VTE Pharm Prophylaxis ordered?: Yes Patient Problems: Active and Suspected Problems (Last Reviewed 11/29/19 @ 13:10 by Candy Santamaria) Hypertensive emergency (Acute) CHF (congestive heart failure) (Acute) - Physical Exam Vitals/I&O's: Vital Signs Temp Pulse Resp BP Pulse Ox 98.3 F 38 L 17 212/86 H 96 12/06/19 13:57 12/06/19 15:36 12/06/19 15:36 12/06/19 15:36 12/06/19 15:36 Oxygen Delivery Method Room Air Weight: 230 lb Body Mass Index (BMI) 31.1 General: Alert, Oriented x3, Cooperative HEENT: Atraumatic, PERRLA, EOMI, Normocephalic Neck: Supple, No JVD, Negative Carotid Bruits, - - tracheostomy. no trach tube. area noninflamed. Lungs: Clear to auscultation, Diminished Cardiovascular: Bradycardic, Irregular Rate, Murmur - 2/6 systolic murmur LSB 2nd ICS Abdomen: Bowel Sounds Present, Soft, Non Tender Extremities: No edema, Capillary Refill Less than 3 Seconds Skin: No rashes, No breakdown Musculoskeletal: No Tenderness to Palpation of Joints or Extremities Neurological: Cranial nerves II-XII grossly intact Psych/Mental Status: Normal Affect, Appropriate, Alert and oriented to time, place, person, mood and affect Laboratory Results 12/06/19 14:44: WBC 7.6, RBC 3.35 L, Hgb 11.3 L, Hct 33.0 L, MCV 98.5 H, MCH 33.7 H, MCHC 34.2, RDW Std Deviation 45.2 H, RDW Coeff of [place] 12.7, Plt Count 133 L, MPV 10.3, Immature Gran % (Auto) 0.400, Neut % (Auto) 73.1 H, Lymph % (Auto) 12.5 L, Kent % (Auto) 11.8 H, Eos % (Auto) 1.8, Baso % (Auto) 0.4, Absolute Neuts (auto) 5.6, Absolute Lymphs (auto) 0.95, Nucleated RBC % 0 12/06/19 14:44: Sodium 130 L, Potassium 4.6, Chloride 97 L, Carbon Dioxide 29.0, Anion Gap 4 L, BUN 27 H, Creatinine 0.79, Estim Creat Clear Calc 63.59, Est GFR (MDRD) Af Amer 120, Est GFR (MDRD) Non-Af 99, BUN/Creatinine Ratio 34.0 H, Glucose 100, Calcium 8.4 L, Magnesium 1.7, Troponin I < 0.015 12/06/19 14:44: B-Natriuretic Peptide 980.6 H Assessment/Plan All Active Problems (Last Reviewed 11/29/19 @ 13:10 by Candy Santamaria) Hypertensive emergency (Acute) CHF (congestive heart failure) (Acute) Preop cardiovascular exam (Acute) Near syncope (Acute) Abdominal aortic aneurysm (AAA) (Resolved) History of laryngeal cancer (Resolved) Dehydration (Resolved) Hyperkalemia (Resolved) SOB (shortness of breath) (Resolved) 1. Hypertensive emergency-market hypertension with evidence of acute congestive heart failure-no echo in the computer, CHF-type unclear. BNP elevated and chest x-ray with congestive pattern, CT chest shows small BL pleural effusions, mild to moderate pulmonary Edema, cardiomegaly, emphysema, compression fx. patient with shortness of breath with exertion. Patient recently taken off of HCTZ. He is markedly hypertensive however this is complicated by bradycardia. His Coreg will be cut back and he will be started on Norvasc, Lasix, PRN hydralazine. Cont inue losartan. Obtain echocardiogram. Trop neg. EKG with afib SVR no ischemic changes. Supplement mag. Sodium should correct with diuresis. 2. Chronic A. fib with slow ventricular response-decrease Coreg, he is not on oral anticoagulation 3. History of alcoholism-patient states he is no longer drinking however there is suspicion that he continues to drink. He has mild hyponatremia despite being off of HCTZ, and it appears that when he was last admitted there is concern he was still drinking. Alcohol level has been ordered by the ER physician, start thiamine and folate acid supplementation, CIWA protocol, PRN Ativan. 4. History of laryngeal cancer status post laryngectomy, tracheostomy-in remission 5. COPD-no exacerbation 6. Debility-continue home PT OT. 7. History of AAA-patient needs more aggressive treatment of his blood pressure DVT prophylaxis: Lovenox Discharge planning: Home with home health care resumed This patient was seen by Gamaliel Ennis PA-C under the supervision of Doctor Kvng. <Pascual Calderon - Last Filed: 12/06/19 19:01> History of Present Illness The patient is a 79 year old M [] Past Medical History Medical History: Medical History (Last Reviewed 11/29/19 @ 13:10 by Candy Santamaria) Near syncope (Acute) R55 Chronic atrial fibrillation (Chronic) I48.20 Bilateral carotid artery stenosis (Chronic) I65.23 WILLIAM 70-99% LIC < 50% 2010 Nonobstructive atherosclerosis of coronary artery (Chronic) I25.10 Abdominal aortic aneurysm (AAA) (Resolved) I71.4 Repair of infrarenal abdominal aortic aneurysm w/ 18 x 9 mm bifurcated hemashield graft to bilateral common iliac arteries with a jump graft to Rt. 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 1994 Alcohol dependence F10.20 beer daily Anxiety and depression F41.9, F32.9 BPH (benign prostatic hyperplasia) N40.0 Watkins's cyst of knee M71.20 COPD (chronic obstructive pulmonary disease) J44.9 Chronic right shoulder pain M25.511, G89.29 Erectile dysfunction N52.9 Frequent falls R29.6 Gout M10.9 History of nephrolithiasis Z87.442 Hyponatremia E87.1 Insomnia G47.00 Panlobular emphysema J43.1 Peripheral vascular occlusive disease I73.9 Claudication I73.9 Dehydration (Resolved) E86.0 History of left heart catheterization Onset Date: 05/2004 Z98.890 Hyperkalemia (Resolved) E87.5 Hypomagnesemia E83.42 MSSA (methicillin susceptible Staphylococcus aureus) infection A49.01 SOB (shortness of breath) (Resolved) R06.02 Vitreous hemorrhage of right eye H43.11 Carotid artery bruit R09.89 BL, L>R Cough (Inactive) R05 History of myocardial infarction (Inactive) I25.2 Allergies iodine Allergy (Intermediate, Verified 12/06/19 13:57) Unknown Surgical History: Surgical History (Last Reviewed 11/29/19 @ 13:10 by Candy Santamaria) History of tracheostomy Z98.890 History of abdominal aortic aneurysm repair Onset Date: 06/20/04 Z98.890 Repair of infrarenal abdominal aortic aneurysm w/ 18 x 9 mm bifurcated hemashield graft to bilateral common iliac arteries with a jump graft to Rt. external iliac artery 06/20/2004 History of appendectomy Z90.49 - *Family History Maternal Family History: Family History (Last Reviewed 12/06/19 @ 17:27 by RONNI Fritz) Father Cancer Sister Myocardial infarction Mother Cancer Pulmonary embolus Brother Cancer Paternal Family History: Family History (Last Reviewed 12/06/19 @ 17:27 by RONNI Fritz) Father Cancer Sister Myocardial infarction Mother Cancer Pulmonary embolus Brother Cancer - Physical Exam Vitals/I&O's: Vital Signs Temp Pulse Resp BP Pulse Ox 97.5 F L 52 L 20 H 201/100 H 97 12/06/19 18:40 12/06/19 18:40 12/06/19 18:40 12/06/19 18:40 12/06/19 18:40 Oxygen Delivery Method Room Air Weight: 214 lb 1.102 oz Body Mass Index (BMI) 29.0 Laboratory Results 12/06/19 14:44: WBC 7.6, RBC 3.35 L, Hgb 11.3 L, Hct 33.0 L, MCV 98.5 H, MCH 33.7 H, MCHC 34.2, RDW Std Deviation 45.2 H, RDW Coeff of [place] 12.7, Plt Count 133 L, MPV 10.3, Immature Gran % (Auto) 0.400, Neut % (Auto) 73.1 H, Lymph % (Auto) 12.5 L, [place] % (Auto) 11.8 H, Eos % (Auto) 1.8, Baso % (Auto) 0.4, Absolute Neuts (auto) 5.6, Absolute Lymphs (auto) 0.95, Nucleated RBC % 0 12/06/19 14:44: Sodium 130 L, Potassium 4.6, Chloride 97 L, Carbon Dioxide 29.0, Anion Gap 4 L, BUN 27 H, Creatinine 0.79, Estim Creat Clear Calc 63.59, Est GFR (MDRD) Af Amer 120, Est GFR (MDRD) Non-Af 99, BUN/Creatinine Ratio 34.0 H, Glucose 100, Calcium 8.4 L, Magnesium 1.7, Troponin I < 0.015 12/06/19 14:44: B-Natriuretic Peptide 980.6 H Current Medications Acetaminophen (Tylenol) 650 mg PO Q6H PRN PRN PRN Reason: Pain Score 1-10/Temp > 100.7 F Albuterol Sulfate (Ventolin Aerosols) 2.5 mg INHALATION Q4H PRN PRN Reason: SOB &/OR WHEEZING Amlodipine Besylate (Norvasc) 10 mg PO DAILY [facility] Atorvastatin Calcium (Lipitor) 80 mg PO QHS [facility] Carvedilol (Coreg) 12.5 mg PO BID [facility] Enoxaparin Sodium (Lovenox) 40 mg SC DAILY [facility] Erythromycin () 1 applic RIGHT EYE QHS [facility] Furosemide (Lasix) 40 mg IV DAILY [facility] Sodium Chloride () 250 mls @ 15 mls/hr IV .[id number] PRN PRN Reason: Saline Flush Sodium Chloride () 250 mls @ 15 mls/hr IV .[id number] PRN PRN Reason: Additional IVPB Infusion Losartan Potassium (Cozaar) 50 mg PO BID [facility] Melatonin (Melatonin) 3 mg PO QHS PRN PRN PRN Reason: INSOMNIA Non-Formulary Medication (Ofloxacin) 1 drp RIGHT EYE 4X/DAY [facility] Ondansetron HCl (Zofran) 4 mg IV Q8H PRN PRN PRN Reason: NAUSEA/VOMITING Sodium Chloride () 10 - 40 ml IV UD PRN PRN Reason: SALINE FLUSH Thiamine HCl (Vitamin B1) [facility] Addendum: Dr. Calderon I personally examined the patient and reviewed the chart. I agree with the above. 79-year-old male presents from home today with lightheadedness as well as hypertension and bradycardia. He has a home health nurse who evaluated him today and noticed that his blood pressure was significantly elevated and that his heart rate was low. In the ER he had a heart rate of 38 with a systolic blood pressure over 200. He was given a dose of hydralazine in the ER. He also has a history of A. fib and of alcohol use. He says his last drink was last night at 8 PM but he only drinks 1 beer a day now. Because of his bradycardia will cut his Coreg in half to 12.5 mg twice daily, he was recently admitted with GABBIE and his hydrochlorothiazide was discontinued therefore we will also add Norvasc and at 10 mg p.o. daily. Also his BNP was elevated and he had some pleural effusions on chest x-ray and therefore we will also place him on Lasix daily. Have his history of laryngeal cancer and has a stoma. We will also obtain an echo to evaluate his cardiac function. But it does look like he had hypertensive emergency with bradycardia potentially inducing CHF. Inpatient E&M: 70785 Init Hosp L3
--- NOTE | 2019-12-06 18:22 | ECHOD_ITS ---
Reason For Study: CHF Procedure This was a 2D Doppler, Color Flow transthoracic echocardiogram. Exam performed portable in patient room. Left Ventricle Normal size and thickness. The estimated ejection fraction is 65 %. Unable to assess diastolic dysfunction due to arrhythmia. No regional wall motion abnormalities noted. Right Ventricle Moderately dilated right ventricle. Mild global right ventricular systolic dysfunction. Atria The left atrium is severely enlarged. The right atrium is severely enlarged. Normal atrial septum. Mitral Valve The mitral valve is structurally normal. No prolapse or stenosis seen. Mild (1+) mitral valve insufficiency. Tricuspid Valve Normal tricuspid valve. Mild to moderate (1-2+) tricuspid valve insufficiency. Right ventricular systolic pressure estimated to be 57 mmHg. Moderate pulmonary hypertension. Aortic Valve Trisinus/trileaflet aortic valve. Mild diffuse aortic valve thickening. There is no aortic stenosis. Trivial aortic valve insufficiency. Pulmonic Valve Normal pulmonic valve. Great Vessels Normal aortic root. Normal arch. The inferior vena cava is dilated. Inferior vena cava collapse with sniff. Pericardium/Pleural No pericardial effusion. MMode/2D Measurements & Calculations LVIDd: 5.1 cm IVSd: 1.3 cm LVOT diam: 2.0 cm LVIDs: 3.6 cm LVPWd: 1.1 cm LVOT area: 3.3 cm2 RVDd: 4.2 cm FS: 29.6 % Ao root diam: 4.1 cm LAV(MOD-bp): 154.2 ml Aortic Valve Planimetry: 2.5 cm2 LAV(MOD-bp) Indexed: 68.3 ml/m2 LAV(MOD-sp2): 152.2 ml LAV(MOD-sp4): 153.3 ml LA dimension(2D): 5.6 cm LA A4 area: 37.9 cm2 RA A4 area: 32.2 cm2 Time Measurements MV dec time: 0.14 sec Doppler Measurements & Calculations MV E max galo: 123.9 cm/sec Ao V2 max: 155.8 cm/sec AI max galo: 358.8 cm/sec Ao max P.8 mmHg AI max P.5 mmHg Ao V2 mean: 105.1 cm/sec AI dec slope: 135.9 cm/sec2 Ao mean P.0 mmHg AI P1/2t: 773.1 msec Ao V2 VTI: 34.8 cm RAPHAEL(I,D): 2.4 cm2 RAPHAEL(V,D): 2.5 cm2 LV V1 max: 119.5 cm/sec SV(LVOT): 82.7 ml PA V2 max: 91.1 cm/sec LV V1 max P.7 mmHg LV V1 mean P.4 mmHg LV V1 mean: 69.9 cm/sec LV V1 VTI: 25.4 cm TR max galo: 324.7 cm/sec TR max P.2 mmHg Interpretation Summary The estimated ejection fraction is 65 %. Unable to assess diastolic dysfunction due to arrhythmia. Moderately dilated right ventricle. Mild global right ventricular systolic dysfunction. The left atrium is severely enlarged. The right atrium is severely enlarged. Mild (1+) mitral valve insufficiency. Mild to moderate (1-2+) tricuspid valve insufficiency. Right ventricular systolic pressure estimated to be 57 mmHg. Moderate pulmonary hypertension. Trivial aortic valve insufficiency. There is no comparison study available. Ordering Physician: Pascual Calderon Referring Physician: Maninder HIGHTOWER Performed By: Martha Zabala, MOHAMUD, RVT
[2019-12-06] MEDS: amLODIPine 10 MG Tablet PO (19:24)
[2019-12-06] MEDS: Carvedilol 12.5 MG Tablet PO (19:24)
[2019-12-06] MEDS: Furosemide 40 MG/4 ML Vial IV (19:24)
[2019-12-06] MEDS: Thiamine Hydrochloride 100 MG Tablet PO (19:24)
[2019-12-06] MEDS: Albuterol 2.5 MG/3 ML VIAL.NEB. INHALATION ×2 (19:43→23:58)
[2019-12-06] MEDS: Losartan Potassium 50 MG Tablet PO (21:42)
[2019-12-06] MEDS: Atorvastatin Calcium 80 MG Tablet PO (21:43)
[2019-12-06] MEDS: Erythromycin Base 1 OPTH.TUBE 1 APPLIC RIGHT EYE (21:43)
[2019-12-07] VITALS (14 sets, daily range): BP systolic 122–172; BP diastolic 53–90; PULSE 42–62; RESP 14–18; TEMP 36.6–37.1; O2SAT 92–100
[2019-12-07] MEDS: MELATONIN 3 MG TABLET PO ×2 (00:06→22:25)
[2019-12-07] MEDS: Acetaminophen 325 MG Tablet 650 MG PO (01:50)
[2019-12-07 05:51] LABS: Absolute Lymphocyte Count 0.98 X10^3/uL (0.83-4.51); Absolute Neutrophil Count 4.8 X10^3/uL (2.0-7.7); Basophil# 0.02 X10^3/uL; Basophil% 0.3 % (0-1); Eosinophil# 0.14 X10^3/uL; Eosinophils% 2.1 % (0-5); Hematocrit 30.8 % (40-54); Hemoglobin 10.6 g/dL (13.0-16.5); Lymphocyte # 0.98 X10^3/ul (4.0); Lymphocyte % 14.5 % (19-41); Mean Corp Hgb Conc 34.4 g/dL (32-36); Mean Corpuscular Hgb 33.2 pg (27.0-32.0); Mean Corpuscular Volume 96.6 fL (80-94); Mean Platelet Vol. 10.8 fl (6.2-12.0); Monocyte# 0.78 X10^3/uL; Monocyte% 11.5 % (0-10); NRBC Flagged by Analyzer 0 % (0-5); Platelet Count 121 K/mm3 (150-450); RBC Distribution Width CV 12.5 % (11.6-14.6); RBC Distribution Width SD 43.8 fl (35.1-43.9); Red Blood Count 3.19 M/mm3 (4.6-6.2); White Blood Count 6.8 K/mm3 (4.4-11.0)
[2019-12-07 06:04] LABS: Anion Gap 4 (5-15); BUN 23 mg/dL (7-18); BUN/Creat Ratio 31.9 RATIO (10-20); Calcium,Total 8.2 mg/dL (8.5-10.1); Chloride 96 mmol/L (98-107); Creatinine, Serum 0.72 mg/dL (0.70-1.30); EST Glomerular Filtration Rate 111 mL/min (>60); Est Glom Filt Rate - Afr Amer 134 mL/min (>60); Estimated Creatinine Clearance 63.59 ml/min; Glucose 106 mg/dL (74-106); Potassium 3.6 mmol/L (3.5-5.1); Sodium Level 130 mmol/L (136-145)
[2019-12-07] MEDS: Multivitamins,Ther W-Minerals Tablet 1 TABLET PO (08:08)
[2019-12-07] MEDS: Folic Acid 1 MG Tablet PO (08:08)
[2019-12-07] MEDS: 0.9% Saline Lock 10 ML Syringe IV (08:08)
[2019-12-07] MEDS: Thiamine Hydrochloride 100 MG Tablet PO ×2 (08:08→18:07)
[2019-12-07] MEDS: Aspirin E.C. 81 MG Tablet PO (08:08)
[2019-12-07] MEDS: Furosemide 40 MG/4 ML Vial IV (08:09)
[2019-12-07] MEDS: amLODIPine 10 MG Tablet PO (08:09)
[2019-12-07] MEDS: Enoxaparin 40 MG/0.4 ML Syringe SC (08:09)
[2019-12-07] MEDS: Carvedilol 12.5 MG Tablet PO (08:09)
[2019-12-07] MEDS: Losartan Potassium 50 MG Tablet PO ×2 (08:09→21:22)
[2019-12-07] MEDS: Albuterol 2.5 MG/3 ML VIAL.NEB. INHALATION ×3 (08:43→19:40)
--- NOTE | 2019-12-07 10:56 | PCM.PN.HOSP ---
<Gamaliel Ennis - Last Filed: 12/07/19 10:56> Patient Problems: Active and Suspected Problems (Last Reviewed 11/29/19 @ 13:10 by Candy Santamaria) Hypertensive emergency (Acute) CHF (congestive heart failure) (Acute) Reason for Visit: Afib SVR, Hypertension Subjective: SOB improved. No LE edema. No CP/pressure/tightness. No RICH/blurry vision. No withdrawal symptoms. Vitals/I&O's: Vital Signs Temp Pulse Resp BP Pulse Ox 98.5 F 42 L 16 172/90 H 92 12/07/19 08:00 12/07/19 08:43 12/07/19 08:43 12/07/19 08:00 12/07/19 08:00 Oxygen Delivery Method Room Air Weight: 214 lb 1.102 oz Body Mass Index (BMI) 29.0 Intake and Output for Last 24 Hours 12/05/19 12/06/19 12/07/19 23:59 23:59 23:59 Intake Total 240 / 240 Output Total 1550 / 1550 375 / 375 Balance -1310 / -1310 -375 / -375 General: Alert, Oriented x3, Cooperative HEENT: Atraumatic, PERRLA, EOMI, Normocephalic Neck: Supple, No JVD, Negative Carotid Bruits, - - tracheostomy present. Lungs: Clear to auscultation, Normal air movement Cardiovascular: No murmurs, Bradycardic, Irregular Rate Abdomen: Bowel Sounds Present, Soft, Non Tender Extremities: No edema, Capillary Refill Less than 3 Seconds Skin: No rashes, No breakdown Musculoskeletal: No Tenderness to Palpation of Joints or Extremities Neurological: Cranial nerves II-XII grossly intact Psych/Mental Status: Normal Affect, Appropriate, Alert and oriented to time, place, person, mood and affect Laboratory Results 12/06/19 14:44: WBC 7.6, RBC 3.35 L, Hgb 11.3 L, Hct 33.0 L, MCV 98.5 H, MCH 33.7 H, MCHC 34.2, RDW Std Deviation 45.2 H, RDW Coeff of [place] 12.7, Plt Count 133 L, MPV 10.3, Immature Gran % (Auto) 0.400, Neut % (Auto) 73.1 H, Lymph % (Auto) 12.5 L, Lander % (Auto) 11.8 H, Eos % (Auto) 1.8, Baso % (Auto) 0.4, Absolute Neuts (auto) 5.6, Absolute Lymphs (auto) 0.95, Nucleated RBC % 0 12/06/19 14:44: Sodium 130 L, Potassium 4.6, Chloride 97 L, Carbon Dioxide 29.0, Anion Gap 4 L, BUN 27 H, Creatinine 0.79, Estim Creat Clear Calc 63.59, Est GFR (MDRD) Af Amer 120, Est GFR (MDRD) Non-Af 99, BUN/Creatinine Ratio 34.0 H, Glucose 100, Calcium 8.4 L, Magnesium 1.7, Troponin I < 0.015 12/06/19 14:44: B-Natriuretic Peptide 980.6 H 12/07/19 05:40: WBC 6.8, RBC 3.19 L, Hgb 10.6 L, Hct 30.8 L, MCV 96.6 H, MCH 33.2 H, MCHC 34.4, RDW Std Deviation 43.8, RDW Coeff of [place] 12.5, Plt Count 121 L, MPV 10.8, Immature Gran % (Auto) 0.600, Neut % (Auto) 71.0 H, Lymph % (Auto) 14.5 L, Lander % (Auto) 11.5 H, Eos % (Auto) 2.1, Baso % (Auto) 0.3, Absolute Neuts (auto) 4.8, Absolute Lymphs (auto) 0.98, Nucleated RBC % 0 12/07/19 05:40: Sodium 130 L, Potassium 3.6, Chloride 96 L, Carbon Dioxide 30.0, Anion Gap 4 L, BUN 23 H, Creatinine 0.72, Estim Creat Clear Calc 63.59, Est GFR (MDRD) Af Amer 134, Est GFR (MDRD) Non-Af 111, BUN/Creatinine Ratio 31.9 H, Glucose 106, Calcium 8.2 L Current Medications Acetaminophen (Tylenol) 650 mg PO Q6H PRN PRN PRN Reason: Pain Score 1-10/Temp > 100.7 F Last Admin: 12/07/19 01:50 Dose: 650 mg Documented by: Albuterol Sulfate (Ventolin Aerosols) 2.5 mg INHALATION Q4H PRN PRN Reason: SOB &/OR WHEEZING Last Admin: 12/07/19 08:43 Dose: 2.5 mg Documented by: Amlodipine Besylate (Norvasc) 10 mg PO DAILY [facility] Last Admin: 12/07/19 08:09 Dose: 10 mg Documented by: Aspirin (Ecotrin) 81 mg PO DAILYCM [facility] Last Admin: 12/07/19 08:08 Dose: 81 mg Documented by: Atorvastatin Calcium (Lipitor) 80 mg PO QHS [facility] Last Admin: 12/06/19 21:43 Dose: 80 mg Documented by: Carvedilol (Coreg) 12.5 mg PO BID [facility] Last Admin: 12/07/19 08:09 Dose: 12.5 mg Documented by: Enoxaparin Sodium (Lovenox) 40 mg SC DAILY [facility] Last Admin: 12/07/19 08:09 Dose: 40 mg Documented by: Erythromycin () 1 applic RIGHT EYE QHS [facility] Last Admin: 12/06/19 21:43 Dose: 1 applicatio Documented by: Folic Acid (Folic Acid) 1 mg PO DAILY@0800 [facility] Stop: 12/09/19 08:01 Last Admin: 12/07/19 08:08 Dose: 1 mg Documented by: Furosemide (Lasix) 40 mg IV DAILY [facility] Last Admin: 12/07/19 08:09 Dose: 40 mg Documented by: Sodium Chloride () 250 mls @ 15 mls/hr IV .[id number] PRN PRN Reason: Saline Flush Sodium Chloride () 250 mls @ 15 mls/hr IV .[id number] PRN PRN Reason: Additional IVPB Infusion Lorazepam (Ativan) 2 mg PO Q2H PRN PRN; Protocol PRN Reason: CIWA score > 8 but <15 Lorazepam (Ativan) 2 mg PO UD PRN; Protocol PRN Reason: CIWA score >/=15. Lorazepam (Ativan) 2 mg IV Q2H PRN PRN; Protocol PRN Reason: CIWA score > 8 but <15 Lorazepam (Ativan) 2 mg IV UD PRN; Protocol PRN Reason: CIWA score >/=15. Lorazepam (Ativan) 1 mg PO Q24H PRN PRN Reason: Agitation Losartan Potassium (Cozaar) 50 mg PO BID [facility] Last Admin: 12/07/19 08:09 Dose: 50 mg Documented by: Melatonin (Melatonin) 3 mg PO QHS PRN PRN PRN Reason: INSOMNIA Last Admin: 12/07/19 00:06 Dose: 3 mg Documented by: Multivitamins/Minerals ([facility] ([facility])) [facility] Last Admin: 12/07/19 08:08 Dose: 1 tablet Documented by: Non-Formulary Medication (Ofloxacin) 1 drp RIGHT EYE 4X/DAY [facility] Ondansetron HCl (Zofran) 4 mg IV Q8H PRN PRN PRN Reason: NAUSEA/VOMITING Sodium Chloride () 10 - 40 ml IV UD PRN PRN Reason: SALINE FLUSH Last Admin: 12/07/19 08:08 Dose: 10 ml Documented by: Thiamine HCl (Vitamin B1) [facility] Last Admin: 12/07/19 08:08 Dose: 100 mg Documented by: STROKE Vital Signs/Narrative: Vital Signs Temp Pulse Resp BP Pulse Ox 12/07/19 08:43 42 L 16 12/07/19 08:00 98.5 F 54 L 16 172/90 H 92 Medical Necessity - Tobacco Use Smoking Status: Former smoker Tobacco Use: Non-smoker Assessment/Plan All Active Problems (Last Reviewed 11/29/19 @ 13:10 by Candy Santamaria) Hypertensive emergency (Acute) CHF (congestive heart failure) (Acute) Preop cardiovascular exam (Acute) Near syncope (Acute) Abdominal aortic aneurysm (AAA) (Resolved) History of laryngeal cancer (Resolved) Dehydration (Resolved) Hyperkalemia (Resolved) SOB (shortness of breath) (Resolved) 1. Hypertensive emergency, mild acute CHF - BP improved but still elevated. It was normal after admission likely due to 10 mg IV hydralazine. He is on maximum losartan and norvasc. add scheduled oral hydralazine. Echo pending 2. Chronic A. fib with slow ventricular response-coreg decreased at admission, mildly cele still but improved. continue to monitor. Not on OAC. 3. History of alcoholism-patient admitted drinking one beer only per day. I am suspicious that he drinks more than this. Continue CIWA protocol, prn ativant 4. History of laryngeal cancer status post laryngectomy, tracheostomy-in remission 5. COPD-no exacerbation 6. Debility-continue home PT OT. 7. History of AAA-patient needs more aggressive treatment of his blood pressure 8. Mild thrombocytopenia - trend. if further decline dc lovenox. DVT prophylaxis: Lovenox Discharge planning: Home with home health care resumed This patient was seen by Gamaliel Ennis PA-C under the supervision of Doctor Nohemy <Vinicio Slater - Last Filed: 12/07/19 11:36> Vitals/I&O's: Vital Signs Temp Pulse Resp BP Pulse Ox 36.9 C 42 L 16 172/90 H 92 12/07/19 08:00 12/07/19 08:43 12/07/19 08:43 12/07/19 08:00 12/07/19 08:00 Oxygen Delivery Method Room Air Weight: 97.1 kg Body Mass Index (BMI) 29.0 Intake and Output for Last 24 Hours 12/05/19 12/06/19 12/07/19 23:59 23:59 23:59 Intake Total 240 / 240 Output Total 1550 / 1550 375 / 375 Balance -1310 / -1310 -375 / -375 General: Alert, Cooperative HEENT: Atraumatic, Normocephalic Neck: - Lungs: Clear to auscultation, Normal air movement Cardiovascular: No murmurs, Bradycardic, Irregular Rate Abdomen: Bowel Sounds Present, Soft, Non Tender Extremities: No edema, No Calf Tenderness Skin: No rashes, No breakdown Psych/Mental Status: Normal Affect, Appropriate Laboratory Results 12/06/19 14:44: WBC 7.6, RBC 3.35 L, Hgb 11.3 L, Hct 33.0 L, MCV 98.5 H, MCH 33.7 H, MCHC 34.2, RDW Std Deviation 45.2 H, RDW Coeff of [place] 12.7, Plt Count 133 L, MPV 10.3, Immature Gran % (Auto) 0.400, Neut % (Auto) 73.1 H, Lymph % (Auto) 12.5 L, [place]ander % (Auto) 11.8 H, Eos % (Auto) 1.8, Baso % (Auto) 0.4, Absolute Neuts (auto) 5.6, Absolute Lymphs (auto) 0.95, Nucleated RBC % 0 12/06/19 14:44: Sodium 130 L, Potassium 4.6, Chloride 97 L, Carbon Dioxide 29.0, Anion Gap 4 L, BUN 27 H, Creatinine 0.79, Estim Creat Clear Calc 63.59, Est GFR (MDRD) Af Amer 120, Est GFR (MDRD) Non-Af 99, BUN/Creatinine Ratio 34.0 H, Glucose 100, Calcium 8.4 L, Magnesium 1.7, Troponin I < 0.015 12/06/19 14:44: B-Natriuretic Peptide 980.6 H 12/07/19 05:40: WBC 6.8, RBC 3.19 L, Hgb 10.6 L, Hct 30.8 L, MCV 96.6 H, MCH 33.2 H, MCHC 34.4, RDW Std Deviation 43.8, RDW Coeff of [place] 12.5, Plt Count 121 L, MPV 10.8, Immature Gran % (Auto) 0.600, Neut % (Auto) 71.0 H, Lymph % (Auto) 14.5 L, [place] % (Auto) 11.5 H, Eos % (Auto) 2.1, Baso % (Auto) 0.3, Absolute Neuts (auto) 4.8, Absolute Lymphs (auto) 0.98, Nucleated RBC % 0 12/07/19 05:40: Sodium 130 L, Potassium 3.6, Chloride 96 L, Carbon Dioxide 30.0, Anion Gap 4 L, BUN 23 H, Creatinine 0.72, Estim Creat Clear Calc 63.59, Est GFR (MDRD) Af Amer 134, Est GFR (MDRD) Non-Af 111, BUN/Creatinine Ratio 31.9 H, Glucose 106, Calcium 8.2 L Current Medications Acetaminophen (Tylenol) 650 mg PO Q6H PRN PRN PRN Reason: Pain Score 1-10/Temp > 100.7 F Last Admin: 12/07/19 01:50 Dose: 650 mg Documented by: Albuterol Sulfate (Ventolin Aerosols) 2.5 mg INHALATION Q4H PRN PRN Reason: SOB &/OR WHEEZING Last Admin: 12/07/19 08:43 Dose: 2.5 mg Documented by: Amlodipine Besylate (Norvasc) 10 mg PO DAILY [facility] Last Admin: 12/07/19 08:09 Dose: 10 mg Documented by: [facility]) [facility] Last Admin: 12/07/19 08:08 Dose: 81 mg Documented by: Atorvastatin Calcium (Lipitor) 80 mg PO QHS [facility] Last Admin: 12/06/19 21:43 Dose: 80 mg Documented by: Carvedilol (Coreg) 12.5 mg PO BID [facility] Last Admin: 12/07/19 08:09 Dose: 12.5 mg Documented by: Enoxaparin Sodium (Lovenox) 40 mg SC DAILY [facility] Last Admin: 12/07/19 08:09 Dose: 40 mg Documented by: Erythromycin () 1 applic RIGHT EYE QHS [facility] Last Admin: 12/06/19 21:43 Dose: 1 applicatio Documented by: Folic Acid (Folic Acid) 1 mg PO DAILY@0800 [facility] Stop: 12/09/19 08:01 Last Admin: 12/07/19 08:08 Dose: 1 mg Documented by: Furosemide (Lasix) 40 mg IV DAILY [facility] Last Admin: 12/07/19 08:09 Dose: 40 mg Documented by: Hydralazine HCl (Apresoline) 25 mg PO TID [facility] Sodium Chloride () 250 mls @ 15 mls/hr IV .[id number] PRN PRN Reason: Saline Flush Sodium Chloride () 250 mls @ 15 mls/hr IV .[id number] PRN PRN Reason: Additional IVPB Infusion Lorazepam (Ativan) 2 mg PO Q2H PRN PRN; Protocol PRN Reason: CIWA score > 8 but <15 Lorazepam (Ativan) 2 mg PO UD PRN; Protocol PRN Reason: CIWA score >/=15. Lorazepam (Ativan) 2 mg IV Q2H PRN PRN; Protocol PRN Reason: CIWA score > 8 but <15 Lorazepam (Ativan) 2 mg IV UD PRN; Protocol PRN Reason: CIWA score >/=15. Lorazepam (Ativan) 1 mg PO Q24H PRN PRN Reason: Agitation Losartan Potassium (Cozaar) 50 mg PO BID [facility] Last Admin: 12/07/19 08:09 Dose: 50 mg Documented by: Melatonin (Melatonin) 3 mg PO QHS PRN PRN PRN Reason: INSOMNIA Last Admin: 12/07/19 00:06 Dose: 3 mg Documented by: Multivitamins/Minerals (Multivitamin With Minerals (Bkc)) [facility] Last Admin: 12/07/19 08:08 Dose: 1 tablet Documented by: Ofloxacin (Ofloxacin) 1 ml RIGHT EYE 4X/DAY [facility] Ondansetron HCl (Zofran) 4 mg IV Q8H PRN PRN PRN Reason: NAUSEA/VOMITING Sodium Chloride () 10 - 40 ml IV UD PRN PRN Reason: SALINE FLUSH Last Admin: 12/07/19 08:08 Dose: 10 ml Documented by: Thiamine HCl (Vitamin B1) 100 mg PO BIDCM [facility] Last Admin: 12/07/19 08:08 Dose: 100 mg Documented by: STROKE Vital Signs/Narrative: Vital Signs Temp Pulse Resp BP Pulse Ox 12/07/19 08:43 42 L 16 12/07/19 08:00 36.9 C 54 L 16 172/90 H 92 Assessment/Plan 1. HTn emergency: overall better. Continue with home medications. EF 65%. 2. Bradycardia: improved. monitor. Inpatient E&M: 07810 Subs Hosp L2
[2019-12-07] MEDS: Magnesium Oxide 400 MG Tablet 800 MG PO (12:01)
[2019-12-07] MEDS: hydrALAZINE 25 MG Tablet PO ×2 (12:02→21:20)
[2019-12-07] MEDS: OFLOXACIN 5 ML DROPS 1 ML RIGHT EYE ×3 (12:03→21:22)
--- NOTE | 2019-12-07 13:34 | CASEMGMT ---
MIESHA CM Readmission Note Previous Admission: -12/01/2019 Diagnosis: Hypotension DC Disposition: Home with [facility] Current Admission Diagnosis: Hypertensive urgency, CHF VS were taken by patient's Home Health nurse and noted to have high BP and low pulse. Pt was brought to ER for evaluation. CXR showed mild pulmonary edema. Family had stated to PA that patient was doing well @ home with Home Health. Will plan to resume HHC on dc. DC Plan: Home with [facility]. Call to notify of dc if on weekend. Manuel BARBOSA RN ACM
[2019-12-07] MEDS: Polyethylene Glycol 3350 17 GM PACKET PO (18:07)
[2019-12-07] MEDS: prednisoLONE eye drops (5 mL) 1 DROP OPTH.BTL 1 DRP OP (21:20)
[2019-12-07] MEDS: Erythromycin Base 1 OPTH.TUBE 1 APPLIC RIGHT EYE (21:21)
[2019-12-07] MEDS: Atorvastatin Calcium 80 MG Tablet PO (21:22)
[2019-12-08] VITALS (9 sets, daily range): BP systolic 137–160; BP diastolic 60–74; PULSE 40–56; RESP 16–18; TEMP 36.6–37.1; O2SAT 97–99
[2019-12-08] MEDS: Albuterol 2.5 MG/3 ML VIAL.NEB. INHALATION ×2 (05:00→09:54)
[2019-12-08] MEDS: hydrALAZINE 25 MG Tablet PO ×2 (05:37→13:31)
[2019-12-08 05:43] LABS: Absolute Lymphocyte Count 1.05 X10^3/uL (0.83-4.51); Absolute Neutrophil Count 5.1 X10^3/uL (2.0-7.7); Basophil# 0.04 X10^3/uL; Basophil% 0.6 % (0-1); Eosinophil# 0.17 X10^3/uL; Eosinophils% 2.4 % (0-5); Hematocrit 33.3 % (40-54); Hemoglobin 11.3 g/dL (13.0-16.5); Lymphocyte # 1.05 X10^3/ul (4.0); Lymphocyte % 14.6 % (19-41); Mean Corp Hgb Conc 33.9 g/dL (32-36); Mean Corpuscular Volume 97.4 fL (80-94); Mean Platelet Vol. 11.3 fl (6.2-12.0); Monocyte# 0.81 X10^3/uL; Monocyte% 11.2 % (0-10); NRBC Flagged by Analyzer 0 % (0-5); Neutrophil # 5.09 X10^3/uL (2.7-7.7); Neutrophil % 70.5 % (47-70); Platelet Count 140 K/mm3 (150-450); RBC Distribution Width CV 12.9 % (11.6-14.6); RBC Distribution Width SD 45.5 fl (35.1-43.9); Red Blood Count 3.42 M/mm3 (4.6-6.2); White Blood Count 7.2 K/mm3 (4.4-11.0)
[2019-12-08 05:58] LABS: Anion Gap 4 (5-15); BUN 24 mg/dL (7-18); BUN/Creat Ratio 30.5 RATIO (10-20); Calcium,Total 8.3 mg/dL (8.5-10.1); Chloride 97 mmol/L (98-107); Creatinine, Serum 0.79 mg/dL (0.70-1.30); EST Glomerular Filtration Rate 101 mL/min (>60); Est Glom Filt Rate - Afr Amer 122 mL/min (>60); Estimated Creatinine Clearance 63.59 ml/min; Glucose 105 mg/dL (74-106); Potassium 3.9 mmol/L (3.5-5.1); Sodium Level 131 mmol/L (136-145)
[2019-12-08] MEDS: prednisoLONE eye drops (5 mL) 1 DROP OPTH.BTL 1 DRP OP ×2 (08:08→13:31)
[2019-12-08] MEDS: OFLOXACIN 5 ML DROPS 1 ML RIGHT EYE ×2 (08:08→13:31)
[2019-12-08] MEDS: Furosemide 40 MG/4 ML Vial IV (08:09)
[2019-12-08] MEDS: Folic Acid 1 MG Tablet PO (08:09)
[2019-12-08] MEDS: Aspirin E.C. 81 MG Tablet PO (08:09)
[2019-12-08] MEDS: 0.9% Saline Lock 10 ML Syringe IV (08:09)
[2019-12-08] MEDS: Multivitamins,Ther W-Minerals Tablet 1 TABLET PO (08:09)
[2019-12-08] MEDS: amLODIPine 10 MG Tablet PO (08:10)
[2019-12-08] MEDS: Thiamine Hydrochloride 100 MG Tablet PO (08:10)
[2019-12-08] MEDS: Losartan Potassium 50 MG Tablet PO (08:10)
[2019-12-08] MEDS: Enoxaparin 40 MG/0.4 ML Syringe SC (08:10)
[2019-12-08] MEDS: Carvedilol 3.125 MG TABLET PO (09:28)
--- NOTE | 2019-12-08 11:12 | DCINST_ITS ---
- Discharge Diagnoses Current Active Problems: Current Active and Chronic Problems (Last Reviewed 11/29/19 @ 13:10 by Candy Santamaria) Hypertensive emergency (Acute) CHF (congestive heart failure) (Acute) You will use the following diet at home:: Cardiac, Other - discontinue all alcohol use Your food should be the consistency of: Regular Your liquids should be the consistency of: Regular/Thin Discharge Activity: Return to Normal Activity Call your doctor if you observe: Dizziness, Fainting spells Allergies/Adverse Reactions: Allergies iodine Allergy (Intermediate, Verified 12/06/19 13:57) Unknown Medications to take at Discharge Albuterol Sulfate [Ventolin Hfa] 2 puff INHALATION Q4H PRN 08/18/16 Multivit-Min/FA/Lycopen/Lutein [Centrum Silver Men Tablet] 1 ea PO DAILY 08/18/16 Acetaminophen [Tylenol] 500 mg PO Q6H PRN PRN #20 tab 11/23/19 albuterol sulfate 2.5 mg INHALATION Q4H PRN ml 11/27/19 atorvastatin 80 mg tablet 80 mg PO QHS tab 11/27/19 thiamine HCl (vitamin B1) 100 mg tablet 100 mg PO BID tab 11/27/19 vitamins A,C,B-iwja-mrhnoy 14,320 unit-226 mg-200 unit capsule 1 cap PO BID cap 11/27/19 Aspirin [Aspirin EC] 81 mg PO DAILY 11/29/19 Erythromycin Ophthalmic 1 applic RIGHT EYE QHS 11/29/19 Ofloxacin 1 drp RIGHT EYE 4X/DAY 11/29/19 Losartan Potassium [Cozaar] 50 mg PO BID #60 tab 12/01/19 Menthol/Lanolin/Calamine/Znox [Calmoseptine Ointment] 1 applic TOPICAL TID tube 12/01/19 Prednisolone Acetate/Pf [Prednisolone Acet 1% Eye Drop] 1 drop OP 4X/DAY 12/07/19 Amlodipine [Norvasc] 10 mg PO DAILY #30 tab 12/08/19 Carvedilol [Coreg (Beta [place])] 3.125 mg PO BID #60 tab 12/08/19 Furosemide [Lasix] 40 mg PO DAILY #30 tab 12/08/19 hydrALAZINE [Apresoline] 25 mg PO TID #90 tab 12/08/19 The following prescriptions were given: hydrALAZINE [Apresoline] 25 mg PO TID #90 tab Transmission Status: Pending to [id number] Carvedilol [Coreg (Beta [place])] 3.125 mg PO BID #60 tab Transmission Status: Pending to [id number] Amlodipine [Norvasc] 10 mg PO DAILY #30 tab Transmission Status: Pending to [facility][id number] Primary Care Physician: Maninder Malcolm PA [Primary Care Provider] - Please follow up with your Primary Care Physician in: 1 week Test Results: Test results from this visit will be discussed in further detail at your follow- up appointment, if applicable. Please Follow Up With: Michael Donovan MD When: 2 weeks Proposed Discharge Date: 12/08/19
--- NOTE | 2019-12-08 12:07 | DS.PCM_ITS ---
<Gamaliel Ennis - Last Filed: 12/08/19 12:07> Discharge Date and Diagnosis - Problem List Patient Problems: Active and Suspected Problems (Last Reviewed 11/29/19 @ 13:10 by Candy Santamaria) Hypertensive emergency (Acute) CHF (congestive heart failure) (Acute) Date of Admission: 12/06/19 Date of Discharge: 12/08/19 - Primary Discharge Diagnosis Acute Problems: Active Problems (Last Reviewed 11/29/19 @ 13:10 by Candy Santamaria) Hypertensive emergency as evidenced by marked HTN with Acute diastolic CHF exacerbation Afib with slow ventricular response - Secondary Discharge Diagnosis Chronic Problems: Chronic Problems (Last Reviewed 11/29/19 @ 13:10 by Candy Santamaria) Chronic atrial fibrillation (Chronic) Bilateral carotid artery stenosis (Chronic) WILLIAM 70-99% LIC < 50% 2010 Nonobstructive atherosclerosis of coronary artery (Chronic) Essential hypertension (Chronic) HLD (hyperlipidemia) (Chronic) Hospital Course and Treatment Imaging Results: RAD/Chest 1 View (Portable) IMPRESSION: Bilateral pneumonia or edema. CT/Chest without Contrast IMPRESSION: 1. Mild to moderate pulmonary edema. 2. Small bilateral pleural effusions. 3. Cardiomegaly. 4. Emphysema with atelectasis. 5. L1 compression fracture, refer to definitive lumbar imaging from earlier same month. 2D TTE: Interpretation Summary The estimated ejection fraction is 65 %. Unable to assess diastolic dysfunction due to arrhythmia. Moderately dilated right ventricle. Mild global right ventricular systolic dysfunction. The left atrium is severely enlarged. The right atrium is severely enlarged. Mild (1+) mitral valve insufficiency. Mild to moderate (1-2+) tricuspid valve insufficiency. Right ventricular systolic pressure estimated to be 57 mmHg. Moderate pulmonary hypertension. Trivial aortic valve insufficiency. There is no comparison study available. Operations: None Procedures: 2-D Echocardiogram Summary of Care Provided: Hospital course: The patient is a 79 year old M with pmhx of chronic afib, HTN, copd, laryngeal cancer in remission, tracheostomy, AAA, carotid stenosis, who presented to the emergency room from home for severe hypertension and bradycardia. The patient was doing well at home since his last admission approximately 2 weeks ago. He was admitted for hypotension and some of his blood pressure medications were cut back. He was discharged home with home health. He is actually been doing well and making improvements with physical therapy however he was getting intermittently lightheaded and his home health care services noticed that he had been running very high blood pressures above 200 systolic and had a pulse in the 30s. This was the case on the day of presentation, he otherwise denied any symptoms at that time. In the emergency room he appeared to have marked hypertension and atrial fibrillation with slow ventricular response. He had some shortness of breath with exertion, chest x-ray and CT of the chest demonstrating underlying congestive heart failure, elevated BNP, negative troponin. He was admitted for hypertensive emergency with evidence of a mild acute CHF exacerbation. His Coreg was reduced, he was started on Norvasc, Lasix, and PRN hydralazine and he was admitted to the PCU on telemetry. Patient's blood pressure improved, Coreg had to be further held for ongoing bradycardia into the 30s. It was resumed at 3.125 mg twice daily. His breathing improved with Lasix. PRN hydralazine was transitioned to oral. Echo was obtained and showed EF65%, moderately dilated right ventricle, mild global right ventricular systolic dysfunction, unable to assess diastolic dysfunction due to arrhythmia, severely enlarged left and right atria, 1-2+ TVI, RVSP 57 mmHg consistent with moderate pulmonary hypertension, 1+ MVI. He still remains somewhat bradycardic, however the patient is asymptomatic. The patient was discharged home with resumption of home health care services. I recommended he follow-up with his PCP in 1 week and with cardiology in 2 weeks. This patient was seen by Gamaliel Ennis PA-C under the supervision of Doctor Nohemy. [] Patient Problems: Active and Suspected Problems (Last Reviewed 11/29/19 @ 13:10 by Candy Santamaria) Hypertensive emergency (Acute) CHF (congestive heart failure) (Acute) - Physical Exam Vitals/I&O's: Vital Signs Temp Pulse Resp BP Pulse Ox 98.7 F 42 L 16 137/60 H 97 12/08/19 12:12/08/19 12:06 12/08/19 12:06 12/08/19 12:12/08/19 12:06 Oxygen Delivery Method Room Air Weight: 214 lb 1.102 oz Body Mass Index (BMI) 29.0 Intake and Output for Last 24 Hours 12/06/19 12/07/19 12/08/19 23:59 23:59 23:59 Intake Total 240 / 240 940 / 940 100 / 100 Output Total 1550 / 1550 2525 / 2525 750 / 750 Balance -1310 / -1310 -1585 / -1585 -650 / -650 General: Alert, Oriented x3, Cooperative HEENT: Atraumatic, PERRLA, EOMI, Normocephalic Neck: Supple, No JVD, Negative Carotid Bruits Lungs: Clear to auscultation, Normal air movement Cardiovascular: Regular rate, No murmurs Abdomen: Bowel Sounds Present, Soft, Non Tender Extremities: No edema, Capillary Refill Less than 3 Seconds Skin: No rashes, No breakdown Musculoskeletal: No Tenderness to Palpation of Joints or Extremities Neurological: Cranial nerves II-XII grossly intact Psych/Mental Status: Normal Affect, Appropriate, Alert and oriented to time, place, person, mood and affect Laboratory Results 12/08/19 05:10: WBC 7.2, RBC 3.42 L, Hgb 11.3 L, Hct 33.3 L, MCV 97.4 H, MCH 33.0 H, MCHC 33.9, RDW Std Deviation 45.5 H, RDW Coeff of [place] 12.9, Plt Count 140 L, MPV 11.3, Immature Gran % (Auto) 0.700, Neut % (Auto) 70.5 H, Lymph % (Auto) 14.6 L, Crosby % (Auto) 11.2 H, Eos % (Auto) 2.4, Baso % (Auto) 0.6, Absolute Neuts (auto) 5.1, Absolute Lymphs (auto) 1.05, Nucleated RBC % 0 12/08/19 05:10: Sodium 131 L, Potassium 3.9, Chloride 97 L, Carbon Dioxide 30.0, Anion Gap 4 L, BUN 24 H, Creatinine 0.79, Estim Creat Clear Calc 63.59, Est GFR (MDRD) Af Amer 122, Est GFR (MDRD) Non-Af 101, BUN/Creatinine Ratio 30.5 H, Glucose 105, Calcium 8.3 L Current Medications Acetaminophen (Tylenol) 650 mg PO Q6H PRN PRN PRN Reason: Pain Score 1-10/Temp > 100.7 F Last Admin: 12/07/19 01:50 Dose: 650 mg Documented by: Albuterol Sulfate (Ventolin Aerosols) 2.5 mg INHALATION Q4H PRN PRN Reason: SOB &/OR WHEEZING Last Admin: 12/08/19 09:54 Dose: 2.5 mg Documented by: Amlodipine Besylate (Norvasc) 10 mg PO DAILY [facility] Last Admin: 12/08/19 08:10 Dose: 10 mg Documented by: Aspirin (Ecotrin) 81 mg PO DAILYCM [facility] Last Admin: 12/08/19 08:09 Dose: 81 mg Documented by: Atorvastatin Calcium (Lipitor) 80 mg PO QHS [facility] Last Admin: 12/07/19 21:22 Dose: 80 mg Documented by: Carvedilol (Coreg) 3.125 mg PO BID [facility] Last Admin: 12/08/19 09:28 Dose: 3.125 mg Documented by: Enoxaparin Sodium (Lovenox) 40 mg SC DAILY [facility] Last Admin: 12/08/19 08:10 Dose: 40 mg Documented by: [facility]th[facility] () [facility] Last Admin: 12/07/19 21:21 Dose: 1 applicatio Documented by: Folic Acid (Folic Acid) 1 mg PO DAILY@0800 [facility] Stop: 12/09/19 08:01 Last Admin: 12/08/19 08:09 Dose: 1 mg Documented by: Furosemide (Lasix) 40 mg IV DAILY [facility] Last Admin: 12/08/19 08:09 Dose: 40 mg Documented by: Hydralazine HCl (Apresoline) 25 mg PO TID [facility] Last Admin: 12/08/19 05:37 Dose: 25 mg Documented by: Sodium Chloride () 250 mls @ 15 mls/hr IV .[id number] PRN PRN Reason: Saline Flush Sodium Chloride () 250 mls @ 15 mls/hr IV .[id number] PRN PRN Reason: Additional IVPB Infusion Lorazepam (Ativan) 2 mg PO Q2H PRN PRN; Protocol PRN Reason: CIWA score > 8 but <15 Lorazepam (Ativan) 2 mg PO UD PRN; Protocol PRN Reason: CIWA score >/=15. Lorazepam (Ativan) 2 mg IV Q2H PRN PRN; Protocol PRN Reason: CIWA score > 8 but <15 Lorazepam (Ativan) 2 mg IV UD PRN; Protocol PRN Reason: CIWA score >/=15. Lorazepam (Ativan) 1 mg PO Q24H PRN PRN Reason: Agitation Losartan Potassium (Cozaar) 50 mg PO BID [facility] Last Admin: 12/08/19 08:10 Dose: 50 mg Documented by: Melatonin (Melatonin) 3 mg PO QHS PRN PRN PRN Reason: INSOMNIA Last Admin: 12/07/19 22:25 Dose: 3 mg Documented by: Multivitamins/Minerals ([facility]ivit[facility] With [facility] ([facility])) [facility] Last Admin: 12/08/19 08:09 Dose: 1 tablet Documented by: Ofloxacin (Ofloxacin) 1 ml RIGHT EYE 4X/DAY [facility] Last Admin: 12/08/19 08:08 Dose: 1 ml Documented by: Ondansetron HCl (Zofran) 4 mg IV Q8H PRN PRN PRN Reason: NAUSEA/VOMITING Polyethylene Glycol (Miralax) 17 gm PO DAILY PRN PRN PRN Reason: Constipation Last Admin: 12/07/19 18:07 Dose: 17 gm Documented by: Prednisolone Acetate (Pred Forte Eye Drops (5 Ml)) 1 drop OP 4X/DAY [facility] Last Admin: 12/08/19 08:08 Dose: 1 drop Documented by: Sodium Chloride () 10 - 40 ml IV UD PRN PRN Reason: SALINE FLUSH Last Admin: 12/08/19 08:09 Dose: 10 ml Documented by: Thiamine [facility] ([facility]itamin B1) [facility] Last Admin: 12/08/19 08:10 Dose: 100 mg Documented by: Discharge Diet: Low fat/ Low Cholesterol, 2000 mg Sodium Diet Discharge Activity: Return to Normal Activity Call your doctor if you observe: Dizziness, Fainting spells Home Medications: Medications to take at Discharge Albuterol Sulfate [Ventolin Hfa] 2 puff INHALATION Q4H PRN 08/18/16 Multivit-Min/FA/Lycopen/Lutein [Centrum Silver Men Tablet] 1 ea PO DAILY 08/18/16 Acetaminophen [Tylenol] 500 mg PO Q6H PRN PRN #20 tab 11/23/19 albuterol sulfate 2.5 mg INHALATION Q4H PRN ml 11/27/19 atorvastatin 80 mg tablet 80 mg PO QHS tab 11/27/19 thiamine HCl (vitamin B1) 100 mg tablet 100 mg PO BID tab 11/27/19 vitamins A,C,H-cblr-[id number] 14,320 unit-226 mg-200 unit capsule 1 cap PO BID cap 11/27/19 Aspirin [Aspirin EC] 81 mg PO DAILY 11/29/19 Erythromycin Ophthalmic 1 applic RIGHT EYE QHS 11/29/19 Ofloxacin 1 drp RIGHT EYE 4X/DAY 11/29/19 Losartan Potassium [Cozaar] 50 mg PO BID #60 tab 12/01/19 Prednisolone Acetate/Pf [Prednisolone Acet 1% Eye Drop] 1 drop OP 4X/DAY 12/07/19 Amlodipine [Norvasc] 10 mg PO DAILY #30 tab 12/08/19 Carvedilol [Coreg (Beta [place])] 3.125 mg PO BID #60 tab 12/08/19 Furosemide [Lasix] 40 mg PO DAILY #30 tab 12/08/19 Menthol/Lanolin/Calamine/Znox [Calmoseptine Ointment] 1 applic TOPICAL TID 12/08/19 hydrALAZINE [Apresoline] 25 mg PO TID #90 tab 12/08/19 Following Prescrptions Were Given to Patient: hydrALAZINE [Apresoline] 25 mg PO TID #90 tab Transmission Status: Received by [facility]/pharmacy #[id number] Carvedilol [Coreg (Beta [place])] 3.125 mg PO BID #60 tab Transmission Status: Received by [facility]/pharmacy #[id number] Furosemide [Lasix] 40 mg PO DAILY #30 tab Transmission Status: Received by [facility]/pharmacy #[id number] Amlodipine [Norvasc] 10 mg PO DAILY #30 tab Transmission Status: Received by [facility]/pharmacy #[id number] Primary Care Physician: Maninder Malcolm PA [Primary Care Provider] - Please follow up with your Primary Care Physician in: 1 week Please Follow Up With: Michael Donovan MD When: 2 weeks Disposition: Home with Home Health Minutes spent on discharge:: 35 Patient Condition:: Stable Medical Necessity - Tobacco Use Smoking Status: Former smoker Tobacco Use: Non-smoker Meaningful Use Info Meaningful Use Diagnoses (Choose all that apply): CHF - CHF MOHAN/ARB ordered at discharge?: Yes Documented LVEF (%): 65 <Viniico Slater - Last Filed: 12/08/19 12:26> Discharge Date and Diagnosis - Primary Discharge Diagnosis Acute Problems: Active Problems (Last Reviewed 11/29/19 @ 13:10 by Candy Santamaria) Hypertensive emergency (Acute) CHF (congestive heart failure) (Acute) - Secondary Discharge Diagnosis Chronic Problems: Chronic Problems (Last Reviewed 11/29/19 @ 13:10 by Candy Santamaria) Chronic atrial fibrillation (Chronic) Bilateral carotid artery stenosis (Chronic) WILLIAM 70-99% LIC < 50% 2009 Nonobstructive atherosclerosis of coronary artery (Chronic) Essential hypertension (Chronic) HLD (hyperlipidemia) (Chronic) Hospital Course and Treatment Operations: None Procedures: 2-D Echocardiogram Summary of Care Provided: Patient seen and examined independently. Data reviewed. I agree with the above note by the physician pediatric assistant. The patient is a 79 year old M presents with hypertension bradycardia. Patient was noted to have a blood pressure over 200 and pulse in the 30s. Patient otherwise felt well. Patient is on carvedilol but that was decreased to 3.125 mg twice daily. Patient blood pressure did improve overall. Patient echocardiogram that had EF of 65% with moderate pulmonary hypertension. Patient continues to be bradycardic but his heart rate overall is improved into the 40s. He is asymptomatic. Patient will be discharged home in stable condition. [] - Physical Exam Vitals/I&O's: Vital Signs Temp Pulse Resp BP Pulse Ox 37.1 C 42 L 16 137/60 H 97 12/08/19 12:06 12/08/19 12:06 12/08/19 12:06 12/08/19 12:06 12/08/19 12:06 Oxygen Delivery Method Room Air Weight: 97.1 kg Body Mass Index (BMI) 29.0 Intake and Output for Last 24 Hours 12/06/19 12/07/19 12/08/19 23:59 23:59 23:59 Intake Total 240 / 240 940 / 940 580 / 580 Output Total 1550 / 1550 2525 / 2525 1550 / 1550 Balance -1310 / -1310 -1585 / -1585 -970 / -970 General: Alert, Cooperative HEENT: Atraumatic, Normocephalic Lungs: Clear to auscultation, Normal air movement, No rhonchi, No wheeze Cardiovascular: No murmurs, Bradycardic Abdomen: Bowel Sounds Present, Soft, Non Tender Laboratory Results 12/08/19 05:10: WBC 7.2, RBC 3.42 L, Hgb 11.3 L, Hct 33.3 L, MCV 97.4 H, MCH 33.0 H, MCHC 33.9, RDW Std Deviation 45.5 H, RDW Coeff of [place] 12.9, Plt Count 140 L, MPV 11.3, Immature Gran % (Auto) 0.700, Neut % (Auto) 70.5 H, Lymph % (Auto) 14.6 L, Crosby % (Auto) 11.2 H, Eos % (Auto) 2.4, Baso % (Auto) 0.6, Absolute Neuts (auto) 5.1, Absolute Lymphs (auto) 1.05, Nucleated RBC % 0 12/08/19 05:10: Sodium 131 L, Potassium 3.9, Chloride 97 L, Carbon Dioxide 30.0, Anion Gap 4 L, BUN 24 H, Creatinine 0.79, Estim Creat Clear Calc 63.59, Est GFR (MDRD) Af Amer 122, Est GFR (MDRD) Non-Af 101, BUN/Creatinine Ratio 30.5 H, Glucose 105, Calcium 8.3 L Current Medications Acetaminophen (Tylenol) 650 mg PO Q6H PRN PRN PRN Reason: Pain Score 1-10/Temp > 100.7 F Last Admin: 12/07/19 01:50 Dose: 650 mg Documented by: Albuterol Sulfate (Ventolin Aerosols) 2.5 mg INHALATION Q4H PRN PRN Reason: SOB &/OR WHEEZING Last Admin: 12/08/19 09:54 Dose: 2.5 mg Documented by: Amlodipine Besylate (Norvasc) 10 mg PO DAILY [facility] Last Admin: 12/08/19 08:10 Dose: 10 mg Documented by: [facility]) [facility] Last Admin: 12/08/19 08:09 Dose: 81 mg Documented by: Atorvastatin Calcium (Lipitor) 80 mg PO QHS [facility] Last Admin: 12/07/19 21:22 Dose: 80 mg Documented by: Carvedilol (Coreg) 3.125 mg PO BID [facility] Last Admin: 12/08/19 09:28 Dose: 3.125 mg Documented by: Enoxaparin Sodium (Lovenox) 40 mg SC DAILY [facility] Last Admin: 12/08/19 08:10 Dose: 40 mg Documented by: Erythromycin () 1 applic RIGHT EYE QHS [facility] Last Admin: 12/07/19 21:21 Dose: 1 applicatio Documented by: Folic Acid (Folic Acid) 1 mg PO DAILY@0800 [facility] Stop: 12/09/19 08:01 Last Admin: 12/08/19 08:09 Dose: 1 mg Documented by: Furosemide (Lasix) 40 mg IV DAILY [facility] Last Admin: 12/08/19 08:09 Dose: 40 mg Documented by: Hydralazine HCl (Apresoline) 25 mg PO TID [facility] Last Admin: 12/08/19 05:37 Dose: 25 mg Documented by: Sodium Chloride () 250 mls @ 15 mls/hr IV .[id number] PRN PRN Reason: Saline Flush Sodium Chloride () 250 mls @ 15 mls/hr IV .[id number] PRN PRN Reason: Additional IVPB Infusion Lorazepam (Ativan) 2 mg PO Q2H PRN PRN; Protocol PRN Reason: CIWA score > 8 but <15 Lorazepam (Ativan) 2 mg PO UD PRN; Protocol PRN Reason: CIWA score >/=15. Lorazepam (Ativan) 2 mg IV Q2H PRN PRN; Protocol PRN Reason: CIWA score > 8 but <15 Lorazepam (Ativan) 2 mg IV UD PRN; Protocol PRN Reason: CIWA score >/=15. Lorazepam (Ativan) 1 mg PO Q24H PRN PRN Reason: Agitation Losartan Potassium (Cozaar) 50 mg PO BID [facility] Last Admin: 12/08/19 08:10 Dose: 50 mg Documented by: Melatonin (Melatonin) 3 mg PO QHS PRN PRN PRN Reason: INSOMNIA Last Admin: 12/07/19 22:25 Dose: 3 mg Documented by: Multivitamins/Minerals (Multivitamin With Minerals (Bkc)) 1 tablet PO DAILYCM [facility] Last Admin: 12/08/19 08:09 Dose: 1 tablet Documented by: Ofloxacin (Ofloxacin) 1 ml RIGHT EYE 4X/DAY [facility] Last Admin: 12/08/19 08:08 Dose: 1 ml Documented by: Ondansetron HCl (Zofran) 4 mg IV Q8H PRN PRN PRN Reason: NAUSEA/VOMITING Polyethylene Glycol (Miralax) 17 gm PO DAILY PRN PRN PRN Reason: Constipation Last Admin: 12/07/19 18:07 Dose: 17 gm Documented by: Prednisolone Acetate (Pred Forte Eye Drops (5 Ml)) 1 drop OP 4X/DAY [facility] Last Admin: 12/08/19 08:08 Dose: 1 drop Documented by: Sodium Chloride () 10 - 40 ml IV UD PRN PRN Reason: SALINE FLUSH Last Admin: 12/08/19 08:09 Dose: 10 ml Documented by: Thiamine HCl (Vitamin B1) 100 mg PO BIDCM [facility] Last Admin: 12/08/19 08:10 Dose: 100 mg Documented by: Meaningful Use Info Meaningful Use Diagnoses (Choose all that apply): None applicable Inpatient E&M: [id number] [facility]
== END 2019-12-08 14:14 | disposition home or self-care (01) | DRG 304 ==
LOC: ED 16:53 → PCU 17:37
PROVIDERS: Physician Assistant; Admitting Provider Family Medicine; Emergency Provider Emergency Medicine; PCP Physician Assistant
DX: I16.1 Hypertensive emergency (principal); I50.31 Acute diastolic (congestive) heart failure; I48.20 Chronic atrial fibrillation, unspecified; I11.0 Hypertensive heart disease with heart failure; Z79.01 Long term (current) use of anticoagulants; I65.23 Occlusion and stenosis of bilateral carotid arteries; E78.5 Hyperlipidemia, unspecified; I25.10 Atherosclerotic heart disease of native coronary artery without angina pectoris; J44.9 Chronic obstructive pulmonary disease, unspecified; I27.20 Pulmonary hypertension, unspecified; D69.6 Thrombocytopenia, unspecified; R53.81 Other malaise; F10.21 Alcohol dependence, in remission; Y90.9 Presence of alcohol in blood, level not specified; Z93.0 Tracheostomy status; Z85.21 Personal history of malignant neoplasm of larynx; Z86.79 Personal history of other diseases of the circulatory system; Z79.82 Long term (current) use of aspirin; Z79.899 Other long term (current) drug therapy; Z87.891 Personal history of nicotine dependence
CPT/HCPCS: 36415; 71045; 71250; 80048; 83735; 83880; 84484; 85025; 93005; 93306; 94640; 97802; 99285; A4216; J1940

== ENCOUNTER 2020-02-16 17:56 | Emergency (ER) | payer MEDICARE, BC, SELFPAY ==
[2019-12-06 18:26] VITALS: BMI 29.0
[2020-02-16 17:58] VITALS: BP 172/73; PULSE 63; RESP 19; TEMP 37.3; O2SAT 92; BMI 29.6
--- NOTE | 2020-02-16 18:07 | RAD_ITS ---
STUDY: X-RAY CHEST REASON FOR EXAM: Male, 79 years old. FALL, WEAKNESS TECHNIQUE: Frontal and lateral views of the chest COMPARISON: December 06 2019 FINDINGS: There is a small left pleural effusion. Left lower lobe is partially obscured by cardiac shadow. Heart is enlarged. Pulmonary jevon are enlarged with the right containing calcified dense involuted lymph nodes superiorly. Right lung is clear. There is no pneumothorax or pulmonary edema. Skeleton is demineralized and intact. RAD/Chest PA and Lateral IMPRESSION: 1. Cardiomegaly, no pulmonary edema. 2. Enlarged pulmonary jevon, probably pulmonary arterial hypertension. 3. Left lower lung disease, possibly small effusion and/or lingular pneumonia. Electronically Signed: Purnima Pedesron, at 18:53 EDT Tel , Service support ,
--- NOTE | 2020-02-16 18:12 | RAD_ITS ---
STUDY: X-RAY - RIGHT FOOT CLINICAL: Male, 79 years old. FALL, WEAKNESS trauma pain TECHNIQUE: 3 view(s) of the foot. COMPARISON: None. FINDINGS: Normal talus, calcaneus, and tarsal bones. Normal visualized subtalar, talonavicular, calcaneocuboid, tarsal and tarsometatarsal articulations. Normal metatarsi. Normal metatarsophalangeal joint of the great toe. Normal tibial and fibular sesamoid bones. Normal interphalangeal joint of the great toe. Normal phalanges of the great toe. Normal second through fifth metatarsophalangeal joints. Normal interphalangeal joints and phalanges of the lesser toes. The soft tissue structures are unremarkable. RAD/Foot min 3 Views IMPRESSION: Normal x-ray examination of the foot. Electronically Signed: Purnima Pederson, at 18:50 EDT Tel , Service support ,
--- NOTE | 2020-02-16 18:12 | ED.VIS.GEN ---
History of Present Illness Chief Complaint: Weakness Informant: Patient Onset: Today Maximum Severity: Mild Narrative: The patient has a history of chronic ataxia and falling episodes, he indicates has been doing well at home no fever no cough no chest pain head neck chest or abdominal comfort. He stumbled apparently struck an object causing some pain to the right chest right foot and he was brought in by EMS the patient insists he feels fine he indicates he really does not wish to be here Past Medical History - Allergies and Home Meds Allergies/Adverse Reactions: Allergies iodine Allergy (Intermediate, Verified 02/16/20 18:02) Unknown Primary Care Physician: Maninder Malcolm, PA [Primary Care Provider] - Past Medical History: None - Dizziness chronic ataxia Surgical History: - - Normal aortic aneurysm repair, laryngectomy with tracheostomy for history of laryngeal cancer in 1994, Smoking Status: Former smoker - Family History Maternal Family History: Family History (Last Reviewed 12/06/19 @ 17:27 by Gamaliel RUDOLPH, PA) Father Cancer Sister Myocardial infarction Mother Cancer Pulmonary embolus Brother Cancer Family History: Reports: Cancer - His mother of cancer of the uterus. He denies any family history of cardiovascular disease. Paternal Family History: Family History (Last Reviewed 12/06/19 @ 17:27 by Gamaliel RUDOLPH, PA) Father Cancer Sister Myocardial infarction Mother Cancer Pulmonary embolus Brother Cancer Family History: Reports: Cancer - Father of lung cancer Review of Systems ROS: - Dizziness chronic ataxia clues as above General: Denies: Chills, Fever, Sweats Eyes: Denies: Visual changes - bilaterally, Diplopia ENT: Denies: Rhinorrhea, Sore throat Cardiovascular: Reports: - - Some pain to palpation to the right chest wall and right foot. Denies: Chest pain, Palpitations Respiratory: Denies: Dyspnea, Cough, Dyspnea on exertion Gastrointestinal: Denies: Abdominal pain, Nausea, Vomiting, Diarrhea, Melena, Hematochezia Genitourinary: Denies: Dysuria, Hematuria, Frequency Musculoskeletal: Denies: Back pain, Extremity Pain Skin: Denies: Rash, Wounds Neurological: Denies: Headache, Weakness, Numbness Physical Exam Vital Signs/Narrative: Vital Signs Temp Pulse Resp BP Pulse Ox 02/16/20 17:58 99.1 F 63 19 H 172/73 H 92 General: Well nourished, Well developed, No Acute Distress Head: Normocephalic, Atraumatic Eyes: Perrl, EOMI ENT: Moist mucous membranes, No rhinorrhea Neck: Supple, Nontender Cardiovascular: Regular rate, Regular rhythm, No murmurs Respiratory: No distress, CTA bilaterally, Chest nontender Abdomen: Soft, Nontender, Nondistended, Normal bowel sounds Back: Nontender, Normal Inspection Extremities: Nontender, No edema Skin: Normal color, No rash Neurological: Alert, Oriented x3, Cranial nerves II-XII grossly intact, Normal Strength, Normal Sensation Psychological: Normal affect, Normal Mood Diagnostic/Tx/Re-eval - Medical Decision Making The patient has a prior laryngectomy he is awake and alert moving all 4 extremities his lungs are clear heart tones are normal some very mild pain to the right chest he assures me he feels fine he wants to go home he is agreeable to observation chest x-ray foot x-ray X-rays per radiology are unremarkable see those reports from the acute, they did note a questionable lingular pneumonia, patient's been under observation vital signs have remained stable the patient insists he is at his baseline health condition he has no complaints he wants to go home to continue his outpatient management he has a chronic cough no change no hypoxemia no fever given the above he will be started on Levaquin first dose here prescription for same and he will follow-up with his outpatient providers and return for change in symptoms I have encouraged him to use his cane walker or other walking devices and he will do so Home stable Final impression possible lingular pneumonia versus atelectasis, right chest wall contusion, right foot contusion ED Disposition - Plan for ED Patient: Diagnosis: Right chest wall contusion, Pneumonia Instructions: ED FOOT CONTUSION, ED CHEST CONTUSION, ED PNEUMONITIS Adult Prescriptions: Levofloxacin [Levaquin] 750 mg PO DAILY #7 tab Prescription Printed Referrals: Maninder Malcolm PA [Primary Care Provider] -
[2020-02-16] MEDS: levoFLOXacin 750 MG Tablet PO (19:43)
[2020-02-16 19:44] VITALS: BP 168/83; PULSE 64; RESP 18; O2SAT 96
== END 2020-02-16 19:47 | disposition home or self-care (01) ==
LOC: ED 18:35
PROVIDERS: Emergency Provider Emergency Medicine; PCP Physician Assistant
DX: S20.211A Contusion of right front wall of thorax, initial encounter (principal); J18.9 Pneumonia, unspecified organism; Z87.891 Personal history of nicotine dependence; W22.8XXA Striking against or struck by other objects, initial encounter
CPT/HCPCS: 71046; 73630; 99284; J7030; A4216

== ENCOUNTER 2020-07-05 19:06 | Emergency (ER) | payer MEDICARE, BC, SELFPAY ==
[2020-07-05 19:07] VITALS: BP 108/51; PULSE 60; RESP 16; TEMP 37.2; O2SAT 97; BMI 27.1
[2020-07-05 21:29] VITALS: PULSE 64; RESP 18; O2SAT 97; O2SAT 99
--- NOTE | 2020-07-05 21:33 | CT_ITS ---
HISTORY: S/P FALL HITTING HEAD WITH ABRASION TO VERTEX, MULTIPLE FALLS, HX TRACH DUE TO CA Technique:CT Head or Brain W/O Contrast Injection. Sagittal and coronal 2-D reformats Number of Images including paperwork:252 Comparison: None available. Findings: Periventricular deep and subcortical white matter disease is present. Paranasal sinuses are clear. The brain is atrophic. Calcific ASCVD involves intracranial arteries. No acute intracranial edema or hemorrhage. No acute abnormality of the right orbit and globe. Rim calcification and small size to the left globe suggestive of phthisis bulbi.. Middle ear cavities and mastoid air cells are well aerated. Skull is normal. CT/Brain/Head without Contrast IMPRESSION: No acute intracranial abnormality. 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 ASPECT 10. Individualized dose optimization techniques were used for this CT. at 2228 Reported and signed by: Bruno Morrison MD Electronically Signed: Bruno Morrison MD at 22:26 EST Tel , Service support ,
--- NOTE | 2020-07-05 21:34 | EKG12_ITS ---
Test Reason : FALL Blood Pressure : / mmHG Vent. Rate : 068 BPM Atrial Rate : 077 BPM P-R Int : 000 ms QRS Dur : 098 ms QT Int : 430 ms P-R-T Axes : 000 008 051 degrees QTc Int : 457 ms Atrial fibrillation with premature ventricular or aberrantly conducted complexes Low voltage QRS Nonspecific ST abnormality Abnormal ECG Confirmed by KASSIDY DIETZ, AMBER ([id number]), video editor TATYANA SANCHEZ ([id number]) on 07/07/2020 11:38:09 AM Referred By: ALBERTO Confirmed By:AMBER YI MD
--- NOTE | 2020-07-05 21:48 | ED.VIS.INJ ---
History of Present Illness Chief Complaint: Fall Informant: Patient Onset: - - Multiple falls over the past several days Mechanism/Context: Blunt Injury, Fall Quality of Pain: Dull, Aching Current Severity: Mild Maximum Severity: Moderate Worsened by: Impact Relieved by: Nothing (possibly alcohol ingestion) Associated Symptoms: Loss of consciousness. Negative for: Parasthesias, Weakness, Loss of function, Inability to ambulate, Amnesia Length of loss of consciousness: Transient Narrative: Is an 80-year-old male with multiple bruises due to multiple falls. He does admit to drinking daily. He does smoke. He is on an aspirin a day. He is on no anticoagulant or any other antiplatelet meds. He sustained trauma to the left side of his head. He complains of pain. He denies double vision, blurred vision loss of vision. Denies drainage from his ears or decreased hearing. Denies epistaxis. Nuys bleeding from his gums. Denies injury to his teeth. Denies neck pain. He denies difficulty breathing. Denies chest discomfort. He denies nausea, vomiting diarrhea. Denies black or maroon-colored stool. Denies blood in his urine. He denies numbness or tingling his upper or lower extremity. Prior similar symptoms: No Recent Illness/Hospitalization: No - Past Medical History (1) Near syncope Status: Acute (2) Acute on chronic diastolic (congestive) heart failure Status: Chronic (3) Bilateral carotid artery stenosis Status: Chronic Comment: WILLIAM 70-99% LIC < 50% 2009 (4) Chronic atrial fibrillation Status: Chronic (5) Essential hypertension Status: Chronic (6) HLD (hyperlipidemia) Status: Chronic (7) Hyponatremia Status: Chronic (8) Nonobstructive atherosclerosis of coronary artery Status: Chronic (9) Secondary pulmonary arterial hypertension Status: Chronic (10) Thrombocytopenia Status: Chronic (11) Abdominal aortic aneurysm (AAA) Status: Resolved Comment: Repair of infrarenal abdominal aortic aneurysm w/ 18 x 9 mm bifurcated hemashield graft to bilateral common iliac arteries with a jump graft to Rt. external iliac artery 06/20/2004 (12) History of laryngeal cancer Status: Resolved Comment: had surgery with a tracheostomy in 1994 Past Medical History - Allergies and Home Meds Allergies/Adverse Reactions: Allergies iodine Allergy (Intermediate, Verified 07/05/20 19:12) Unknown Primary Care Physician: Maninder Malcolm, PA [Primary Care Provider] - Prior records reviewed: Yes Surgical History: - - Normal aortic aneurysm repair, laryngectomy with tracheostomy for history of laryngeal cancer in 1994, Lives: Alone Smoking Status: Former smoker Alcohol: Heavy Drugs: None - Family History Maternal Family History: Family History (Last Reviewed 12/06/19 @ 17:27 by Gamaliel RUODLPH PA) Father Cancer Sister Myocardial infarction Mother Cancer Pulmonary embolus Brother Cancer Family History: Reports: Cancer - His mother of cancer of the uterus. He denies any family history of cardiovascular disease. Paternal Family History: Family History (Last Reviewed 12/06/19 @ 17:27 by RONNI Greenberg) Father Cancer Sister Myocardial infarction Mother Cancer Pulmonary embolus Brother Cancer Family History: Reports: Cancer - Father of lung cancer Review of Systems General: Denies: Chills, Fever, Malaise, Subjective Eyes: Denies: Visual changes - bilaterally, Blurred Vision - bilaterally ENT: Denies: Bilateral ear pain, Right ear pain, Rhinorrhea Cardiovascular: Denies: Chest pain, Palpitations Respiratory: Denies: Dyspnea, Dyspnea on exertion, Orthopnea, Paroxysmal nocturnal dyspnea Gastrointestinal: Denies: Abdominal pain, Nausea, Vomiting, Diarrhea, Melena, Hematochezia Genitourinary: Denies: Dysuria, Hematuria, Frequency Musculoskeletal: Reports: Back pain, Extremity Pain. Denies: Myalgias, Arthralgias, Neck pain, Swelling Skin: Reports: Abrasions, Wounds. Denies: Rash, Abscess Neurological: Reports: Headache. Denies: Weakness, Parasthesia Endocrine: Denies: Polyuria, Polydipsia Hematologic: Reports: Easy bruising. Denies: Easy bleeding Physical Exam Vital Signs/Narrative: Vital Signs Temp Pulse Resp BP Pulse Ox 07/05/20 21:29 64 18 97 07/05/20 19:07 98.9 F 60 16 108/51 L 97 Inital Vital Signs reviewed: Yes General: Well nourished, Well developed, Unkempt Head: Normocephalic, Trauma, Tenderness Eyes: Perrl, EOMI, - - No subconjunctival hemorrhage noted.. Negative for: Pale conjunctiva, Scleral icterus ENT: TM's clear, No hemotympanum or drainage, No trauma. Negative for: Hemotympanum, Otorrhea, Nasal trauma, Nasal septal hematoma Neck: Nontender, Full ROM. Negative for: Spinal Tenderness, Paraspinal Tenderness Cardiovascular: Regular rate, Regular rhythm, No murmurs, Normal S1, Normal S2 Respiratory: No distress, CTA bilaterally, Chest nontender Abdomen: Soft, Nontender, Nondistended, Normal bowel sounds Rectal: Deferred Back: Nontender, - - He has bruises lateral right and left flank.. Negative for: CVA Tenderness - Right, CVA Tenderness - Left Extremeties: There are bruises noted upper and lower extremity. Skin: Normal color, Trauma. Negative for: No rash, Cyanosis, Diaphoresis, Jaundice Neurological: Alert, Oriented x3, Cranial nerves II-XII grossly intact, Normal Strength, Normal Sensation, Normal DTR Psychological: Depressed - Glascow Coma Scale Eye Opening: Spontaneous Motor: Obeys Commands Verbal: Oriented Coma Scale Total: 15 Diagnostic/Tx/Re-eval Chest X-Ray - ED: Read by ED Physician - There is evidence of atherosclerosis of the aorta.View x-ray of the LS spine was interpreted by me at 2235. Patient has a new L1 compression fraction when compared to CT of the lumbar spine performed November 2019. Transaminases are elevated. Alcohol level is 36. CBC is unremarkable. The CT was interpreted by radiologist as unremarkable. Awaiting UA results. Impressions Brain CT 07/05/20 21:33 IMPRESSION: No acute intracranial abnormality. 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 ASPECT 10. Individualized dose optimization techniques were used for this CT. at 2228 Reported and signed by: Bruno Morrison MD Electronically Signed: Bruno Morrison MD at 22:26 EST Tel , Service support , Lumbar Spine X-Ray 07/05/20 22:05 IMPRESSION: Progressive wedging to nonacute fracture of the L1 vertebral body. Chronic spondylolysis and spondylolisthesis at L5-S1. Chronic multilevel degenerative disc disease. Chronic severe atherosclerosis within the abdominal aorta. at 2238 Reported and signed by: Bruno Morrison MD Electronically Signed: Bruno Morrison MD at 22:37 EST Tel , Service support , 07/05/20 21:33 Brain/Head without Contrast [CT] Stat 07/05/20 22:05 Lumbar Spine 2 or 3 Views [RAD] Stat Laboratory Results 07/05/20 07/05/20 07/05/20 11:23 21:43 21:43 WBC 9.6 RBC 4.36 L Hgb 14.6 Hct 41.9 MCV 96.1 H MCH 33.5 H MCHC 34.8 RDW Std Deviation 48.0 H RDW Coeff of [place] 13.7 Plt Count 191 MPV 11.3 Immature Gran % (Auto) 0.600 Neut % (Auto) 70.2 H Lymph % (Auto) 16.7 L Granite % (Auto) 10.0 Eos % (Auto) 1.8 Baso % (Auto) 0.7 Absolute Neuts (auto) 6.8 Absolute Lymphs (auto) 1.61 Nucleated RBC % 0 PT 12.7 INR 1.0 Sodium Potassium Chloride Carbon Dioxide Anion Gap BUN Creatinine Estim Creat Clear Calc Est GFR (MDRD) Af Amer Est GFR (MDRD) Non-Af BUN/Creatinine Ratio Glucose Calcium Total Bilirubin AST ALT Alkaline Phosphatase Total Protein Albumin Globulin Albumin/Globulin Ratio Urine Color Yellow Urine Clarity Clear Urine pH 5.0 Ur Specific Lester 1.020 Urine Protein 500 H Urine Glucose (UA) Normal Urine Ketones 5 H Urine Occult Blood 250 H Urine Nitrite Negative Urine Bilirubin Negative Urine Urobilinogen 1 H Ur Leukocyte Esterase 100 H Urine RBC 5-10 SEEN Urine WBC 5-10 SEEN Ur Squamous Epith Cells 0 SEEN Urine Bacteria 2+ Urine Mucus 0 SEEN Ethyl Alcohol 07/05/20 07/05/20 21:43 21:43 WBC RBC Hgb Hct MCV MCH MCHC RDW Std Deviation RDW Coeff of Kent[place] Plt Count MPV Immature Gran % (Auto) Neut % (Auto) Lymph % (Auto) Granite % (Auto) Eos % (Auto) Baso % (Auto) Absolute Neuts (auto) Absolute Lymphs (auto) Nucleated RBC % PT INR Sodium 141 Potassium 3.2 L Chloride 104 Carbon Dioxide 30.0 Anion Gap 7 BUN 19 H Creatinine 0.88 Estim Creat Clear Calc 71.04 Est GFR (MDRD) Af Amer 106 Est GFR (MDRD) Non-Af 88 BUN/Creatinine Ratio 21.5 H Glucose 79 Calcium 8.5 Total Bilirubin 0.80 AST 360 H ALT 219 H Alkaline Phosphatase 134 H Total Protein 6.5 Albumin 2.6 L Globulin 3.9 Albumin/Globulin Ratio 0.7 L Urine Color Urine Clarity Urine pH Ur Specific Lester Urine Protein Urine Glucose (UA) Urine Ketones Urine Occult Blood Urine Nitrite Urine Bilirubin Urine Urobilinogen Ur Leukocyte Esterase Urine RBC Urine WBC Ur Squamous Epith Cells Urine Bacteria Urine Mucus Ethyl Alcohol 36.0 - Medical Decision Making History of multiple falls head trauma headache and age of 80 with transient loss of conscious per the [place] CT head rule imaging is required. Alcohol level was obtained to determine patient's intoxicated. Because he has bruising easily and an alcoholic PT/INR was obtained. CBC to assess H&H. Basic metabolic panel to assess renal function electrolytes. LS-spine was obtained to rule out compression fracture. UA was ordered to rule out traumatic injury to kidney. Patient was discharged home with oral opiate analgesic medicine for his L1 compression fracture. ED Disposition - Plan for ED Patient: Diagnosis: Closed head injury with brief loss of consciousness, Fall with injury, Contusion of flank and back, Contusion of multiple sites of upper limb, Contusion of multiple sites of lower extremity, Acute on chronic alcoholic liver disease Instructions: ED Head Injury (Adult), ED Soft Tissue Contusion, ED Alcohol Abuse Prescriptions: Oxycodone HCl/Acetaminophen [Percocet 5/325] 1 tablet PO Q6H PRN PRN 5 Days #20 tablet PRN Reason: Back pain Transmission Status: Received by [facility]/pharmacy #[id number] Referrals: Maninder Malcolm PA [Primary Care Provider] - 3-5 Days Additional Instructions: 1. The pain medicine may make you constipated 2. Take Metamucil 2-3 times a day for the next week 3. You may have back pain for several days if not longer
--- NOTE | 2020-07-05 22:05 | RAD_ITS ---
HISTORY: Multiple falls. Pain. Comparison study is a CT scan of the lumbar spine from November 23, 2019. Findings: Spondylolysis and spondylolisthesis of L5 on S1 is chronic and unchanged. Chronic degenerative wedging to the posterior aspect of the L5 vertebral body, likely related to the spondylolysis of acute lordosis is unchanged. Fracture to the L1 vertebral body has progressed since to November 23, 2019 study with greater wedging greater loss of vertebral body height. Persistent degenerative disc disease with anterior enthesophytes. Severe atherosclerosis of the abdominal aorta. Multiple surgical clips within the left paraspinal region. Levoscoliosis persists. Arthritis persists. Gaseous distention of many small bowel and colonic loops. RAD/Lumbar Spine 2 or 3 Views IMPRESSION: Progressive wedging to nonacute fracture of the L1 vertebral body. Chronic spondylolysis and spondylolisthesis at L5-S1. Chronic multilevel degenerative disc disease. Chronic severe atherosclerosis within the abdominal aorta. at 2238 Reported and signed by: Bruno Morrison MD Electronically Signed: Bruno Morrison MD at 22:37 EST Tel , Service support ,
[2020-07-05 22:13] LABS: Absolute Lymphocyte Count 1.61 X10^3/uL (0.83-4.51); Absolute Neutrophil Count 6.8 X10^3/uL (2.0-7.7); Basophil# 0.07 X10^3/uL; Basophil% 0.7 % (0-1); Eosinophil# 0.17 X10^3/uL; Eosinophils% 1.8 % (0-5); Hematocrit 41.9 % (40-54); Hemoglobin 14.6 g/dL (13.0-16.5); Lymphocyte # 1.61 X10^3/ul (4.0); Lymphocyte % 16.7 % (19-41); Mean Corp Hgb Conc 34.8 g/dL (32-36); Mean Corpuscular Hgb 33.5 pg (27.0-32.0); Mean Corpuscular Volume 96.1 fL (80-94); Mean Platelet Vol. 11.3 fl (6.2-12.0); Monocyte# 0.96 X10^3/uL; NRBC Flagged by Analyzer 0 % (0-5); Neutrophil # 6.76 X10^3/uL (2.7-7.7); Neutrophil % 70.2 % (47-70); Platelet Count 191 K/mm3 (150-450); RBC Distribution Width CV 13.7 % (11.6-14.6); Red Blood Count 4.36 M/mm3 (4.6-6.2); White Blood Count 9.6 K/mm3 (4.4-11.0)
[2020-07-05 22:16] LABS: Prothrombin Time (Protime)PT. 12.7 SECONDS (11.7-14.9)
[2020-07-05 22:18] LABS: ALB/GLOB Ratio 0.7 RATIO (0.9-2.4); AST(SGOT) 360 U/L (15-37); Alanine Aminotransfer ALT/SGPT 219 U/L (16-61); Albumin, Serum 2.6 g/dL (3.2-5.0); Alkaline Phosphatase 134 U/L (45-117); Anion Gap 7 (5-15); BUN 19 mg/dL (7-18); BUN/Creat Ratio 21.5 RATIO (10-20); Calcium,Total 8.5 mg/dL (8.5-10.1); Chloride 104 mmol/L (98-107); Creatinine, Serum 0.88 mg/dL (0.70-1.30); EST Glomerular Filtration Rate 88 mL/min (>60); Est Glom Filt Rate - Afr Amer 106 mL/min (>60); Estimated Creatinine Clearance 71.04 ml/min; Globulin 3.9 g/dL (2.2-4.2); Glucose 79 mg/dL (74-106); Potassium 3.2 mmol/L (3.5-5.1); Protein, Total 6.5 g/dL (6.4-8.2); Sodium Level 141 mmol/L (136-145)
[2020-07-05 23:28] LABS: Mucous, Urine 0 SEEN /hpf (<or=2+); Squamous Epithelial Cells - UA 0 SEEN /hpf (0-5)
[2020-07-05 23:39] LABS: Color, Urine Yellow (Yellow); Glucose, Dipstick Normal (Normal); Ketone-Dipstick 5 mg/dl (Negative); Leukocyte Esterase-Dipstick 100 /ul (Negative); Nitrite-Dipstick Negative (Negative); Occult Blood-Urine 250 /ul (Negative); Protein-Dipstick 500 mg/dl (Negative); Urine Bilirubin Dipstick Negative (Negative); Urine Clarity Clear (Clear); Urine Urobilinogen 1 mg/dl (Normal)
[2020-07-05 23:50] LABS: Bacteria 2+ /hpf (None Seen); Red Blood Cells-Urine 5-10 SEEN /hpf (0-5); White Blood Cells 5-10 SEEN /hpf (0-5)
[2020-07-06 00:01] VITALS: BP 143/77; PULSE 59; RESP 18; O2SAT 100
== END 2020-07-06 00:17 | disposition home or self-care (01) ==
PROVIDERS: Emergency Provider Emergency Medicine; PCP Physician Assistant
DX: S06.9X9A Unspecified intracranial injury with loss of consciousness of unspecified duration, initial encounter (principal); S40.029A Contusion of unspecified upper arm, initial encounter; S80.10XA Contusion of unspecified lower leg, initial encounter; W19.XXXA Unspecified fall, initial encounter; Z91.81 History of falling; Y93.9 Activity, unspecified; Y92.9 Unspecified place or not applicable; Y99.9 Unspecified external cause status; K70.9 Alcoholic liver disease, unspecified; F10.20 Alcohol dependence, uncomplicated; Y90.1 Blood alcohol level of 20-39 mg/100 ml; I11.0 Hypertensive heart disease with heart failure; I50.33 Acute on chronic diastolic (congestive) heart failure; I48.20 Chronic atrial fibrillation, unspecified; E87.1 Hypo-osmolality and hyponatremia; E78.5 Hyperlipidemia, unspecified; R29.6 Repeated falls; Z79.82 Long term (current) use of aspirin; Z79.899 Other long term (current) drug therapy; Z87.891 Personal history of nicotine dependence
CPT/HCPCS: 70450; 72100; 80053; 81001; 82077; 85025; 85610; 93005; 99285

== ENCOUNTER 2021-04-16 23:21 | Emergency (ER) | payer MEDICARE, BC, SELFPAY ==
[2021-04-16 23:22] VITALS: BP 103/64; PULSE 69; RESP 15; TEMP 36.1; O2SAT 98; BMI 27.9
--- NOTE | 2021-04-17 00:29 | RAD_ITS ---
STUDY: X-RAY - THORACIC SPINE REASON FOR EXAM: Male, 81 years old. Back pain TECHNIQUE: 3 view(s) of the thoracic spine were obtained. COMPARISON: None. FINDINGS: Mildly exaggerated kyphosis of the thoracic spine. Mild dextro scoliosis centered at T8. Mild degenerative change of the intervertebral disc spaces throughout the thoracic spine. Chronic compression fracture deformity at L1. Visualized ribs are unremarkable. No paraspinal soft tissue densities. RAD/Thoracic Spine 3 Views IMPRESSION: 1. No acute abnormality of the thoracic spine 2. Mild multilevel degenerative change of the spine. Electronically Signed: David Christianson MD at 2:16 EST Tel , Service support ,
--- NOTE | 2021-04-17 00:29 | RAD_ITS ---
STUDY: X-RAY - UNILATERAL RIBS ( LEFT ) WITH CHEST REASON FOR EXAM: Male, 81 years old. Chest pain TECHNIQUE - RIBS: 4 view(s) of the ribs. TECHNIQUE - CHEST: COMPARISON: None. FINDINGS - RIBS: There are fracture deformities of the lateral aspects of the right 6th through 10th ribs which demonstrate evidence of bone healing. FINDINGS - CHEST: Mild patchy airspace opacification at bilateral lung bases, right greater than left.. Mild elevation of the left hemidiaphragm. Blunting of the left lateral costophrenic angle. No pneumothorax. Mild cardiomegaly.. Normal mediastinum and jevon. Normal visualized pulmonary arteries. There is atherosclerotic calcification of the aortic arch . There are diffuse degenerative changes of the visualized thoracic spine. Normal visualized ribs, clavicles, and shoulders. There is no demonstrated abnormality of the visualized soft tissue structures of the upper abdomen. RAD/Ribs Uni Min 3V w/PA Chest IMPRESSION: RIBS: Healing versus healed fracture deformities involving the left fifth through 10th ribs CHEST: Bibasilar atelectasis with questionable small left pleural effusion. Electronically Signed: David Christianson MD at 2:00 EST Tel , Service support ,
--- NOTE | 2021-04-17 00:29 | RAD_ITS ---
STUDY: X-RAY - RIGHT KNEE REASON FOR EXAM: Male, 81 years old. Right knee pain TECHNIQUE: 3 view(s) of the knee. COMPARISON: None. FINDINGS: Normal visualized distal femur. Normal visualized proximal tibia and fibula. Normal proximal tibiofibular articulation. Normal patella. Moderate degenerative change of all 3 compartments of the knee. Small knee joint effusion. The soft tissue structures are unremarkable. Vascular calcifications noted. RAD/Knee 3 Views IMPRESSION: 1. Moderate tricompartmental osteoarthritic change 2. Small knee joint effusion. Electronically Signed: David Christianson MD at 1:45 EST Tel , Service support ,
--- NOTE | 2021-04-17 00:29 | CT_ITS ---
STUDY: CT BRAIN WITHOUT CONTRAST REASON FOR EXAM: Male, 81 years old. Headache status post fall RADIATION DOSAGE (If Supplied By Facility): CTDIvol = ( 44.99 ) mGy, DLP = ( 846.73 ) mGycm TECHNIQUE: Transaxial CT imaging of the brain was performed without administration of intravenous contrast material. Individualized dose optimization techniques were used for this CT. COMPARISON: No relevant priors. FINDINGS: Normal soft tissue structures. Right nasal bone fracture of indeterminant age but likely chronic. There is mild to moderate cerebral atrophy with widening of the extra-axial spaces and ventricular dilatation. There is moderate bilateral periventricular and subcortical white matter hypoattenuation which is symmetric in distribution. Normal basal ganglia and thalami. Normal brainstem. Normal cerebellum. There is no intracranial hemorrhage. There are no findings of an acute ischemic infarction. Normal visualized paranasal sinuses. CT/Brain/Head without Contrast IMPRESSION: 1. No acute intracranial abnormality. 2. Moderate bilateral periventricular and subcortical white matter chronic small vessel disease with age appropriate cerebral atrophy. 3. Right nasal bone fracture which appears chronic in nature Electronically Signed: David Christianson MD at 2:33 EST Tel , Service support ,
--- NOTE | 2021-04-17 00:29 | RAD_ITS ---
STUDY: X-RAY - LUMBAR SPINE REASON FOR EXAM: Male, 81 years old. Normal TECHNIQUE: 3 view(s) of the lumbar spine were obtained. COMPARISON: None FINDINGS: There is an exaggerated focal lordosis at L5-S1 grade 1 L5 on S1. There is mild levoscoliosis centered at L1. There is a chronic compression fracture deformity at L1. There is moderate degenerative change at the L5-S1 intervertebral disc space. Mild degenerative change of the remaining lumbar disc levels. There is moderate degenerative change of the facet joints from L3 through S1. No paraspinal soft tissue densities. Intraabdominal vascular calcifications noted. RAD/Lumbar Spine 2 or 3 Views IMPRESSION: 1. No acute abnormality lumbar spine. 2. Mild to moderate multilevel degenerative disc and facet disease. 3. Chronic L1 compression fracture deformity Electronically Signed: David Christianson MD at 1:28 EST Tel , Service support ,
--- NOTE | 2021-04-17 00:58 | RAD_ITS ---
STUDY: X-RAY - PELVIS AND RIGHT HIP REASON FOR EXAM: Male, 81 years old. Pelvic pain TECHNIQUE: AP and frog-leg lateral views of the right hip with AP view pelvis. COMPARISON: None. FINDINGS: There is a non-specific bowel gas pattern. Normal visualized soft tissue structures. Vascular calcifications noted. Mild degenerative change of bilateral sacroiliac joints. Sacrum is intact. Bilateral iliac wings, pubic rami and ischial tuberosities are intact. Normal pubic symphysis. Right hip is in normal alignment with mild to moderate degenerative change. No right femoral fracture. Left hip is in normal alignment with mild degenerative change. No left femoral fracture. RAD/HIP, UNI W/ Pelvis 2-3 Views IMPRESSION: No acute abnormality of the pelvis. Electronically Signed: David Christianson MD at 1:35 EST Tel , Service support ,
--- NOTE | 2021-04-17 02:54 | EDS_ITS ---
HPI History of Present Illness Chief Complaint: Fall Narrative Narrative: Patient is 81-year-old male he uses a walker to get around. He reports that he has arthritis in his knee which makes it difficult for him to walk and this caused him to fall. He states that he did strike his head/face and bit his lip causing a laceration. He is concerned he may need sutures because of the trauma to his mouth and therefore comes in for evaluation. [facility] Medical History (Updated 04/17/21 @ 02:[address] George Morse, DO) Abdominal aortic aneurysm (AAA) Acute on chronic diastolic (congestive) heart failure (12/06/19) Alcohol dependence Anxiety and depression Watkins's cyst of knee Bilateral carotid artery stenosis BPH (benign prostatic hyperplasia) Carotid artery bruit Chronic atrial fibrillation Chronic right shoulder pain Claudication COPD (chronic obstructive pulmonary disease) Cough Dehydration Erectile dysfunction Essential hypertension Frequent falls Gout History of laryngeal cancer History of left heart catheterization (05/2004) History of myocardial infarction History of nephrolithiasis HLD (hyperlipidemia) Hyperkalemia Hypertensive emergency (12/06/19) Hypomagnesemia Hyponatremia Insomnia MSSA (methicillin susceptible Staphylococcus aureus) infection Near syncope Nonobstructive atherosclerosis of coronary artery Panlobular emphysema Peripheral vascular occlusive disease Secondary pulmonary arterial hypertension SOB (shortness of breath) Thrombocytopenia Vitreous hemorrhage of right eye Home Medications albuterol sulfate 2 puff INHALATION Q4H PRN 08/18/16 [History Last Taken 12/05/19] xxhhqrvg-pvi-QQ-lycopen-lutein 1 ea PO DAILY 08/18/16 [History Last Taken 12/06/19] acetaminophen 500 mg PO Q6H PRN PRN #20 tab 11/23/19 [Rx Last Taken 11/28/19] albuterol sulfate 2.5 mg INHALATION Q4H PRN ml 11/27/19 [History Last Taken 12/06/19] atorvastatin 80 mg tablet 80 mg PO QHS tab 11/27/19 [History Last Taken 12/06/19] thiamine HCl (vitamin B1) 100 mg tablet 100 mg PO BID tab 11/27/19 [History Last Taken 12/06/19] vitamins A,C,U-dyjy-bzohit 14,320 unit-226 mg-200 unit capsule 1 cap PO BID cap 11/27/19 [History Last Taken 12/06/19] aspirin 81 mg PO DAILY 11/29/19 [History Last Taken 12/06/19] erythromycin 1 applic RIGHT EYE QHS 11/29/19 [History Last Taken 11/28/19] ofloxacin 1 drp RIGHT EYE 4X/DAY 11/29/19 [History Last Taken 11/29/19] losartan 50 mg PO BID #60 tab 12/01/19 [Rx Last Taken 12/06/19] prednisolone acetate (PF) 1 drop OP 4X/DAY 12/07/19 [History Last Taken Unknown] amlodipine 10 mg PO DAILY #30 tab 12/08/19 [Rx Last Taken Unknown] carvedilol 3.125 mg PO BID #60 tab 12/08/19 [Rx Last Taken Unknown] furosemide 40 mg PO DAILY #30 tab 12/08/19 [Rx Last Taken Unknown] hydralazine 25 mg PO TID #90 tab 12/08/19 [Rx Last Taken Unknown] menthol-zinc oxide 1 applic TOPICAL TID 12/08/19 [History Last Taken Unknown] amoxicillin-pot clavulanate [Augmentin] 1 tab PO BID 7 Days #14 tab 04/17/21 [Rx Last Taken Unknown] Allergy/AdvReac Type Severity Reaction Status Date / Time iodine Allergy Intermediate Unknown Verified 07/05/20 19:12 Family History Father , 67 Cancer lung Sister , 59 Myocardial infarction Mother , 58 Cancer Pulmonary embolus Brother Cancer throat Surgical History (Updated 12/06/19 @ 14:[address] Rasta Finley, DO) History of abdominal aortic aneurysm repair (06/20/04) History of appendectomy History of tracheostomy Social History Smoking Status: Former smoker alcohol intake: current substance use type: does not use ROS ROS ED Constitutional Constitutional ED: Denies chills or fever(s) ENT ENT ED: Denies sore throat Cardiovascular Cardiovascular: Denies chest pain Respiratory/Chest Respiratory/Chest: Denies cough or dyspnea Gastrointestinal Gastrointestinal: Denies abdominal pain, diarrhea, nausea or vomiting Genitourinary Genitourinary ED: Denies dysuria Musculoskeletal Musculoskeletal: Reports arthralgias and back pain; Denies myalgias or neck pain Integumentary Reports other Details: Positive lip laceration ; Denies rash Neurologic Neurologic: Denies headache(s) Hematologic/Lymphatic Hematologic/Lymphatic: Denies easy bleeding or easy bruising EXAM Physical Exam Const Vital Signs: 04/16/21 23:22 04/17/21 00:11 04/17/21 02:59 Temperature 97 F L Temperature Source Temporal Pulse Rate 69 Respiratory Rate 15 18 Respiratory Effort Normal Blood Pressure 103/64 Blood Pressure Mean 77 Pulse Ox 98 Oxygen Delivery Method Room Air Positive well nourished, well developed and obese General Appearance ED: well developed Nutritional Appearance: obese HEENT HEENT Narrative: Patient has a curved linear 2 cm laceration across the middle to the left aspect of the lower lip. The wound is subcutaneous layer deep with minimal ooze of blood and no foreign body. Otherwise no signs of depressed or basilar skull fracture Eyes PERRL and EOMs intact bilaterally Neck supple Neck Narrative: No bony deformity or step-off of the cervical spine no midline pain with palpation Chest Wall Chest Narrative: Patient has reproducible pain to the left anterior lateral chest wall without bony deformity or crepitance Resp normal respiratory effort and clear to auscultation bilaterally Cardio regular rate and regular rhythm GI normal to inspection, nondistended, normoactive bowel sounds, non-tender, non- distended and no masses Auscultation: normoactive bowel sounds Palpation: soft Back/Spine Back/Spine Narrative: No bony deformity or step-off of the thoracic or lumbar spine but there is midline pain palpation of the thoracic and lumbar region Extremity Extremity Narrative: Pelvis is stable there is no shortening or external rotation of either lower extremity. Patient has mild soft tissue swelling and abrasion to the right knee consistent with fall. Patellar tendon is intact knee ligaments are stable. Neuro oriented x3 and CN's II-XII intact bilaterally Sensorium / Orientation: alert Psych mental status grossly normal Skin Skin Narrative: Laceration to the mouth with abrasion to the knee as documented above MDM MDM MDM Narrative Medical decision making narrative: Patient reported mechanical fall so I felt no need for a cardiac or syncope work-up. Imaging studies were obtained because of the pain and trauma and revealed no acute finding. Therefore the patient had lip closed as documented below. As it appeared he bit his lip and there is concern for mouth infection I will place him on a 7-day course of Augmentin. Otherwise as work-up reveals no acute trauma and his laceration is now closed he is safe for discharge Patient had the left lower lip cleaned with chlorhexidine. It was anesthetized with 4 mL of 2% lidocaine without epinephrine in local fashion. The wound was copiously irrigated with normal saline. Then five 5-0 Vicryl sutures were placed in simple interrupted fashion. This brought the wound together good approximation. Patient tolerated the procedure well without complication. Radiography Diagnostic Testing: Clinical Impression(s) from Imaging Studies Brain CT 04/17/21 00:29 IMPRESSION: 1. No acute intracranial abnormality. 2. Moderate bilateral periventricular and subcortical white matter chronic small vessel disease with age appropriate cerebral atrophy. 3. Right nasal bone fracture which appears chronic in nature Electronically Signed: David Christianson MD at 2:33 EST Tel , Service support , Knee X-Ray 04/17/21 00:29 IMPRESSION: 1. Moderate tricompartmental osteoarthritic change 2. Small knee joint effusion. Electronically Signed: David Christianson MD at 1:45 EST Tel , Service support , Lumbar Spine X-Ray 04/17/21 00:29 IMPRESSION: 1. No acute abnormality lumbar spine. 2. Mild to moderate multilevel degenerative disc and facet disease. 3. Chronic L1 compression fracture deformity Electronically Signed: David Christianson MD at 1:28 EST Tel , Service support , Ribs w/Chest X-Ray 04/17/21 00:29 IMPRESSION: RIBS: Healing versus healed fracture deformities involving the left fifth through 10th ribs CHEST: Bibasilar atelectasis with questionable small left pleural effusion. Electronically Signed: David Christianson MD at 2:00 EST Tel , Service support , Thoracic Spine X-Ray 04/17/21 00:29 IMPRESSION: 1. No acute abnormality of the thoracic spine 2. Mild multilevel degenerative change of the spine. Electronically Signed: David Christianson MD at 2:16 EST Tel , Service support , Hip/Pelvis X-Ray 04/17/21 00:58 IMPRESSION: No acute abnormality of the pelvis. Electronically Signed: David Christianson MD at 1:35 EST Tel , Service support , Discharge Plan Triage Chief Complaint: Fall ED Provider: George Morse Dx/Rx/DC Orders Clinical Impression: Accidental fall, Closed head injury, Laceration of lip Instructions: ED Laceration, Lip or Mouth Prescriptions: New amoxicillin-pot clavulanate [Augmentin] 875-125 mg tablet 1 tab PO BID 7 Days Qty: 14 RF: 0 No Action albuterol sulfate 2.5 mg /3 mL (0.083 %) solution for nebulization 2.5 mg INHALATION Q4H PRN (Reason: Sob &/Or Wheezing) RF: 0 atorvastatin 80 mg tablet 80 mg PO QHS RF: 0 albuterol sulfate 18 GM HFA aerosol inhaler 2 puff inhalation Q4H PRN (Reason: Sob &/Or Wheezing) RF: 0 ebkrbqur-zld-PU-lycopen-lutein 1 EACH tablet 1 ea PO DAILY RF: 0 thiamine HCl (vitamin B1) 100 mg tablet 100 mg PO BID RF: 0 vitamins A,C,W-ptkd-rduebp 14,320-226-200 puny-bm-qrnq capsule 1 cap PO BID RF: 0 acetaminophen 500 MG tablet 500 mg PO Q6H PRN PRN (Reason: Pain Score 1-5/10) Qty: 20 RF: 0 ofloxacin 5 ML drops 1 drp RIGHT EYE 4X/DAY RF: 0 aspirin 81 MG tablet,delayed release (DR/EC) 81 mg PO DAILY RF: 0 erythromycin 5 mg/gram (0.5 %) ointment 1 applic RIGHT EYE QHS RF: 0 losartan 50 MG tablet 50 mg PO BID Qty: 60 RF: 0 prednisolone acetate (PF) 5 ML drops,suspension 1 drop OP 4X/DAY RF: 0 hydralazine 25 MG tablet 25 mg PO TID Qty: 90 RF: 0 carvedilol 3.125 MG tablet 3.125 mg PO BID Qty: 60 RF: 0 amlodipine 10 MG tablet 10 mg PO DAILY Qty: 30 RF: 0 furosemide 40 MG tablet 40 mg PO DAILY Qty: 30 RF: 0 menthol-zinc oxide 1 APPLIC ointment 1 applic topical TID RF: 0 Primary Care Provider: Maninder Malcolm Referrals: Maninder Malcolm, RONNI [Primary Care Provider] - Disposition Disposition: Home, Self Care Discharge Date/Time: 04/17/21 02:59
[2021-04-17] MEDS: Lidocaine 2% (20 ml mdv) 20 ML Vial INFILT (02:55)
[2021-04-17 02:59] VITALS: RESP 18
== END 2021-04-17 02:59 | disposition home or self-care (01) ==
PROVIDERS: Emergency Provider Emergency Medicine; PCP Physician Assistant
DX: S09.90XA Unspecified injury of head, initial encounter (principal); S01.511A Laceration without foreign body of lip, initial encounter; I25.2 Old myocardial infarction; I11.0 Hypertensive heart disease with heart failure; I50.32 Chronic diastolic (congestive) heart failure; E78.5 Hyperlipidemia, unspecified; J44.9 Chronic obstructive pulmonary disease, unspecified; I48.20 Chronic atrial fibrillation, unspecified; Z87.891 Personal history of nicotine dependence; Z87.442 Personal history of urinary calculi; Z85.21 Personal history of malignant neoplasm of larynx; Z79.82 Long term (current) use of aspirin; Z79.899 Other long term (current) drug therapy; W19.XXXA Unspecified fall, initial encounter
CPT/HCPCS: 70450; 71101; 72072; 72100; 73502; 73562; 99282

== ENCOUNTER 2022-03-21 02:15 | Emergency (ER) | payer MEDICARE, BC, SELFPAY ==
[2022-03-21 02:17] VITALS: BP 180/77; PULSE 65; RESP 18; TEMP 36.7; O2SAT 96; BMI 26.2
[2022-03-21 02:20] VITALS: BP 180/77; PULSE 68; RESP 16; TEMP 36.7; O2SAT 98
--- NOTE | 2022-03-21 02:38 | RAD_ITS ---
STUDY: X-RAY - RIGHT FOOT CLINICAL: Male, 81 years old. Injury TECHNIQUE: 3 view(s) of the foot. COMPARISON: February 16, 2020 right foot x-ray FINDINGS: Normal talus, calcaneus, and tarsal bones. Since prior study there is much greater appearance of osteopenia. There is anomalous mild appearance of the bones when compared to prior study. There is a slight focus of cortical regularity involving the periphery of the navicular bone which does not appear to be acute but not necessarily seen on the prior study. This visualized degenerative change of the tibiotalar joint. Normal visualized subtalar, talonavicular, calcaneocuboid, tarsal and tarsometatarsal articulations. Normal metatarsi. Normal metatarsophalangeal joint of the great toe. Normal tibial and fibular sesamoid bones. Normal interphalangeal joint of the great toe. Normal phalanges of the great toe. Normal second through fifth metatarsophalangeal joints. Normal interphalangeal joints and phalanges of the lesser toes. There is partially visualized vascular calcification. RAD/Foot min 3 Views IMPRESSION: Age-indeterminate cortical lucency at the edge of the navicular bone that does not appear to be acute but possibly new since prior. Otherwise no definitive evidence of an acute fracture. There is an overall pattern of much worse bony osteopenia of the right foot when compared to prior study. This can be demonstrated in immobility or potentially underlying bony metabolic disease. Electronically Signed: Radha Murray MD at 3:53 EST ,
--- NOTE | 2022-03-21 02:48 | EDS_ITS ---
HPI History of Present Illness Chief Complaint: Wound Informant: patient and EMS Onset/Context/Timing Onset: Days (2 days) Context: Gradual Onset Narrative Narrative: Patient presents with a blister to the bottom of his right foot that he noticed 2 days ago. Patient does report tripping and hitting his foot recently. This was shortly before he noted the blister. He has a history of neuropathy and has very little sensation in his feet. He follows with Dr. Villareal for podiatry. He last saw her on the , but did not have this wound at that time. He denies any drainage from the wound. He denies fever or chills. [facility] Medical History Abdominal aortic aneurysm (AAA) Acute on chronic diastolic (congestive) heart failure (12/06/19) Alcohol dependence Anxiety and depression Watkins's cyst of knee Bilateral carotid artery stenosis BPH (benign prostatic hyperplasia) Carotid artery bruit Chronic atrial fibrillation Chronic right shoulder pain Claudication COPD (chronic obstructive pulmonary disease) Cough Dehydration Erectile dysfunction Essential hypertension Frequent falls Gout History of laryngeal cancer History of left heart catheterization (05/2004) History of myocardial infarction History of nephrolithiasis HLD (hyperlipidemia) Hyperkalemia Hypertensive emergency (12/06/19) Hypomagnesemia Hyponatremia Insomnia MSSA (methicillin susceptible Staphylococcus aureus) infection Near syncope Nonobstructive atherosclerosis of coronary artery Panlobular emphysema Peripheral vascular occlusive disease Secondary pulmonary arterial hypertension SOB (shortness of breath) Thrombocytopenia Vitreous hemorrhage of right eye Home Medications albuterol sulfate 90 mcg/actuation aerosol inhaler 2 puff inhalation Q4H PRN Sob &/Or Wheezing 08/18/16 [History Last Taken 12/05/19] uyvaomyo-qsc-nvcjh acid 300 mcg-lycopene 600 mcg-lutein 300 mcg tablet 1 ea PO DAILY SUPPLEMENT 08/18/16 [History Last Taken 12/06/19] acetaminophen 500 mg tablet 500 mg PO Q6H PRN PRN Pain Score 1-5/10 #20 tabs 11/23/19 [Rx Last Taken 11/28/19] albuterol sulfate 2.5 mg/3 mL (0.083 %) solution for nebulization 2.5 mg inhalation Q4H PRN Sob &/Or Wheezing 11/27/19 [History Last Taken 12/06/19] atorvastatin 80 mg tablet 80 mg PO QHS heart 11/27/19 [History Last Taken 12/06/19] thiamine HCl (vitamin B1) 100 mg tablet 100 mg PO BID SUPPLEMENT 11/27/19 [History Last Taken 12/06/19] vitamins A,C,L-qopp-qnfhuv 14,320 unit-226 mg-200 unit capsule 1 cap PO BID SUPPLEMENT 11/27/19 [History Last Taken 12/06/19] aspirin 81 mg tablet,delayed release 81 mg PO DAILY HEART HEALTH 11/29/19 [History Last Taken 12/06/19] erythromycin 5 mg/gram (0.5 %) eye ointment 1 applic RIGHT EYE Q eye health 11/29/19 [History Last Taken 11/28/19] ofloxacin 0.3 % eye drops 1 drp RIGHT EYE 4X/DAY infection 11/29/19 [History Last Taken 11/29/19] losartan 50 mg tablet 50 mg PO BID #60 tabs 12/01/19 [Rx Last Taken 12/06/19] prednisolone acetate (PF) 1 % eye drops,suspension 1 drop OP 4X/DAY cataract 12/07/19 [History Last Taken Unknown] amlodipine 10 mg tablet 10 mg PO DAILY #30 tabs 12/08/19 [Rx Last Taken Unknown] carvedilol 3.125 mg tablet 3.125 mg PO BID #60 tabs 12/08/19 [Rx Last Taken Unknown] furosemide 40 mg tablet 40 mg PO DAILY #30 tabs 12/08/19 [Rx Last Taken Unknown] hydralazine 25 mg tablet 25 mg PO TID #90 tabs 12/08/19 [Rx Last Taken Unknown] menthol 0.44 %-zinc oxide 20.6 % topical ointment 1 applic topical TID redness 12/08/19 [History Last Taken Unknown] amoxicillin 875 mg-potassium clavulanate 125 mg tablet (Augmentin) 1 tab PO BID 7 days #14 tabs 04/17/21 [Rx Last Taken Unknown] cephalexin 500 mg capsule 500 mg PO Q6 #40 caps 03/21/22 [Rx Last Taken Unknown] Allergy/AdvReac Type Severity Reaction Status Date / Time iodine Allergy Intermediate Unknown Verified 07/05/20 19:12 Family History Father , 67 Cancer lung Sister , 59 Myocardial infarction Mother , 58 Cancer Pulmonary embolus Brother Cancer throat Surgical History History of abdominal aortic aneurysm repair (06/20/04) History of appendectomy History of tracheostomy Social History Smoking Status: Former smoker alcohol intake: current substance use type: does not use ROS ROS ED Constitutional Constitutional ED: Denies chills or fever(s) Eyes Eyes: Denies change in vision or discharge from eye(s) ENT ENT ED: Denies discharge from eye(s), rhinorrhea or sore throat Cardiovascular Cardiovascular: Denies chest pain or palpitations Respiratory/Chest Respiratory/Chest: Denies cough or dyspnea Gastrointestinal Gastrointestinal: Denies abdominal pain, nausea or vomiting Genitourinary Genitourinary ED: Denies dysuria Musculoskeletal Musculoskeletal: Reports extremity pain; Denies back pain Integumentary Reports other Details: Blister to bottom of right foot ; Denies Abrasions or rash Neurologic Neurologic: Denies headache(s) or weakness Allergic/Immunologic Allergic/Immunologic ED: Denies lip swelling or urticaria EXAM Physical Exam Const Vital Signs: 03/21/22 02:17 03/21/22 02:20 Temperature 98.1 F 98.1 F Temperature Source Temporal Temporal Pulse Rate 65 68 Respiratory Rate 18 16 Blood Pressure 180/77 H 180/77 H Blood Pressure Mean 111 111 Pulse Ox 96 98 Oxygen Delivery Method Room Air Room Air Positive well nourished and well developed General Appearance ED: well developed HEENT Reports normocephalic and head/scalp atraumatic Eyes PERRL and EOMs intact bilaterally Neck supple Chest Wall inspection of chest normal and palpation of chest normal Resp normal respiratory effort Cardio regular rate and regular rhythm GI non-tender Palpation: soft Extremity Extremity Narrative: 2 x 3 cm blister to the plantar surface of the right foot to the space between the metatarsal heads of the first and second digit. No evidence of cellulitis. No spontaneous drainage. Neuro oriented x3 Sensorium / Orientation: alert Motor Exam: strength 5/5 throughout Psych mental status grossly normal MDM MDM MDM Narrative Medical decision making narrative: X-rays of the right foot obtained. Treatment and Re-Evaluation Narrative: X-ray the right foot per my interpretation reveals no acute bony injury. I do not see obvious fluid collection or air bubbles in the soft tissue to indicate deep infection. Clinically his foot does not look infected. That being said, I do not want his wound to become infected. His foot is soaked and wounds are cleansed. Dressing is applied with gauze pads over the blister area to help protect it. He will be treated with a course of Keflex. Patient will follow up with Dr. Villareal. Discharge Plan Triage Chief Complaint: Wound ED Provider: Shana Aranda Dx/Rx/DC Orders Clinical Impression: Blister, Contusion of foot Instructions: ED Foot Contusion, ED Wound Care Prescriptions: New cephalexin 500 mg capsule 500 mg PO Q6 Qty: 40 0RF No Action albuterol sulfate 2.5 mg /3 mL (0.083 %) solution for nebulization 2.5 mg INHALATION Q4H PRN (Reason: Sob &/Or Wheezing) Label Comments: USE 3 ML VIA NEBULIZER EVERY 4 HOURS NEEDED atorvastatin 80 mg tablet 80 mg PO QHS Label Comments: TAKE 1 TABLET BY MOUTH EVERY DAY albuterol sulfate 18 GM HFA aerosol inhaler 2 puff inhalation Q4H PRN (Reason: Sob &/Or Wheezing) Label Comments: COPD dbttoeub-ott-XO-lycopen-lutein 1 EACH tablet 1 ea PO DAILY Label Comments: SUPPLEMENT thiamine HCl (vitamin B1) 100 mg tablet 100 mg PO BID Label Comments: SUPPLEMENT vitamins A,C,F-pidr-meianv 14,320-226-200 sxef-jd-zjfp capsule 1 cap PO BID Label Comments: EYE HEALTH acetaminophen 500 MG tablet 500 mg PO Q6H PRN PRN (Reason: Pain Score 1-5/10) Qty: 20 0RF ofloxacin 5 ML drops 1 drp RIGHT EYE 4X/DAY aspirin 81 MG tablet,delayed release (DR/EC) 81 mg PO DAILY erythromycin 5 mg/gram (0.5 %) ointment 1 applic RIGHT EYE QHS Label Comments: INSTILL 1 APPLICATION IN THE RIGHT EYE EVERY DAY AT BEDTIME losartan 50 MG tablet 50 mg PO BID Qty: 60 0RF prednisolone acetate (PF) 5 ML drops,suspension 1 drop OP 4X/DAY hydralazine 25 MG tablet 25 mg PO TID Qty: 90 0RF carvedilol 3.125 MG tablet 3.125 mg PO BID Qty: 60 0RF amlodipine 10 MG tablet 10 mg PO DAILY Qty: 30 0RF furosemide 40 MG tablet 40 mg PO DAILY Qty: 30 0RF menthol-zinc oxide 1 APPLIC ointment 1 applic topical TID Protocol: *Topical Application Instructions APPLICATION INSTRUCTIONS: Apply to affected area of buttocks amoxicillin-pot clavulanate [Augmentin] 875-125 mg tablet 1 tab PO BID 7 Days Qty: 14 0RF Primary Care Provider: Maninder Malcolm Referrals: Liliana Sullivan DPM [Med Staff - Active Staff] - 5-7 Days Maninder Malcolm PA [Primary Care Provider] - Disposition Disposition: Home, Self Care
[2022-03-21] MEDS: Cephalexin 250 MG Capsule 500 MG PO (03:34)
[2022-03-21 03:36] VITALS: BP 148/75
--- NOTE | 2022-03-21 03:38 | ED.RN ---
this nurse notified larissa, pt's daughter that pt is discharged. well he'll have to wait a little bit I can drive in the dark, once it's daylight I'll pick him up pt informed of same.
== END 2022-03-21 08:09 | disposition home or self-care (01) ==
PROVIDERS: Emergency Provider Emergency Medicine; PCP Physician Assistant; Visit Provider Emergency Medicine
DX: S90.821A Blister (nonthermal), right foot, initial encounter (principal); I73.9 Peripheral vascular disease, unspecified; S90.30XA Contusion of unspecified foot, initial encounter; I25.10 Atherosclerotic heart disease of native coronary artery without angina pectoris; I10 Essential (primary) hypertension; E78.5 Hyperlipidemia, unspecified; W18.40XA Slipping, tripping and stumbling without falling, unspecified, initial encounter; Y93.9 Activity, unspecified; Y99.9 Unspecified external cause status; Y92.9 Unspecified place or not applicable; Z87.891 Personal history of nicotine dependence; G62.9 Polyneuropathy, unspecified; Z79.899 Other long term (current) drug therapy; Z79.82 Long term (current) use of aspirin
CPT/HCPCS: 73630; 99284

== ENCOUNTER 2022-06-26 02:03 | Emergency (ER) | payer MEDICARE, BC, SELFPAY ==
[2022-06-26 02:04] VITALS: BP 187/73; PULSE 64; RESP 15; TEMP 36.4; O2SAT 96; BMI 26.6
--- NOTE | 2022-06-26 02:19 | EX.ED.DYSGE1 ---
HPI History of Present Illness Chief Complaint: Constipation Narrative Narrative: Patient presents with 4 to 5-day history of constipation. He has no abdominal pain. He feels like there is a lump in his rectum and he cannot help bowel movement because of that. [facility] Medical History Abdominal aortic aneurysm (AAA) Acute on chronic diastolic (congestive) heart failure (12/06/19) Alcohol dependence Anxiety and depression Watkins's cyst of knee Bilateral carotid artery stenosis BPH (benign prostatic hyperplasia) Carotid artery bruit Chronic atrial fibrillation Chronic right shoulder pain Claudication COPD (chronic obstructive pulmonary disease) Cough Dehydration Erectile dysfunction Essential hypertension Frequent falls Gout History of laryngeal cancer History of left heart catheterization (05/2004) History of myocardial infarction History of nephrolithiasis HLD (hyperlipidemia) Hyperkalemia Hypertensive emergency (12/06/19) Hypomagnesemia Hyponatremia Insomnia MSSA (methicillin susceptible Staphylococcus aureus) infection Near syncope Nonobstructive atherosclerosis of coronary artery Panlobular emphysema Peripheral vascular occlusive disease Secondary pulmonary arterial hypertension SOB (shortness of breath) Thrombocytopenia Vitreous hemorrhage of right eye Home Medications albuterol sulfate 90 mcg/actuation aerosol inhaler 2 puff inhalation Q4H PRN Sob &/Or Wheezing 08/18/16 [History Last Taken 12/05/19] dfhbahdc-vrj-voeoa acid 300 mcg-lycopene 600 mcg-lutein 300 mcg tablet 1 ea PO DAILY SUPPLEMENT 08/18/16 [History Last Taken 12/06/19] acetaminophen 500 mg tablet 500 mg PO Q6H PRN PRN Pain Score 1-5/10 #20 tabs 11/23/19 [Rx Last Taken 11/28/19] albuterol sulfate 2.5 mg/3 mL (0.083 %) solution for nebulization 2.5 mg inhalation Q4H PRN Sob &/Or Wheezing 11/27/19 [History Last Taken 12/06/19] atorvastatin 80 mg tablet 80 mg PO QHS heart 11/27/19 [History Last Taken 12/06/19] thiamine HCl (vitamin B1) 100 mg tablet 100 mg PO BID SUPPLEMENT 11/27/19 [History Last Taken 12/06/19] vitamins A,C,P-cbcq-dswxwk 4,296 mcg-226 mg-90 mg capsule 1 cap PO BID SUPPLEMENT 11/27/19 [History Last Taken 12/06/19] aspirin 81 mg tablet,delayed release 81 mg PO DAILY HEART HEALTH 11/29/19 [History Last Taken 12/06/19] erythromycin 5 mg/gram (0.5 %) eye ointment 1 applic RIGHT EYE QHS eye health 11/29/19 [History Last Taken 11/28/19] ofloxacin 0.3 % eye drops 1 drp RIGHT EYE 4X/DAY infection 11/29/19 [History Last Taken 11/29/19] losartan 50 mg tablet 50 mg PO BID #60 tabs 12/01/19 [Rx Last Taken 12/06/19] prednisolone acetate (PF) 1 % eye drops,suspension 1 drop OP 4X/DAY cataract 12/07/19 [History Last Taken Unknown] amlodipine 10 mg tablet 10 mg PO DAILY #30 tabs 12/08/19 [Rx Last Taken Unknown] carvedilol 3.125 mg tablet 3.125 mg PO BID #60 tabs 12/08/19 [Rx Last Taken Unknown] furosemide 40 mg tablet 40 mg PO DAILY #30 tabs 12/08/19 [Rx Last Taken Unknown] hydralazine 25 mg tablet 25 mg PO TID #90 tabs 12/08/19 [Rx Last Taken Unknown] menthol 0.44 %-zinc oxide 20.6 % topical ointment 1 applic topical TID redness 12/08/19 [History Last Taken Unknown] amoxicillin 875 mg-potassium clavulanate 125 mg tablet (Augmentin) 1 tab PO BID 7 days #14 tabs 04/17/21 [Rx Last Taken Unknown] cephalexin 500 mg capsule 500 mg PO Q6 #40 caps 03/21/22 [Rx Last Taken Unknown] docusate sodium 100 mg capsule (Colace) 100 mg PO BID #20 caps 06/26/22 [Rx Last Taken Unknown] Allergy/AdvReac Type Severity Reaction Status Date / Time iodine Allergy Intermediate Unknown Verified 06/26/22 02:21 Family History Father , 67 Cancer lung Sister , 59 Myocardial infarction Mother , 58 Cancer Pulmonary embolus Brother Cancer throat Surgical History History of abdominal aortic aneurysm repair (06/20/04) History of appendectomy History of tracheostomy Social History Smoking Status: Former smoker alcohol intake: current substance use type: does not use ROS ROS ED ROS Narrative Past medical history: Reviewed Medications: Reviewed Social history: Noncontributory Review of systems: All systems negative except as indicated General: No fever Cardiovascular: No chest pain Respiratory: No shortness of breath or cough Gastrointestinal: No abdominal pain, nausea vomiting or diarrhea. Constipation as in HPI Genitourinary: No dysuria EXAM Physical Exam Narrative Exam Narrative: Physical exam General: Well nourished, Well developed, No Acute Distress Head: Normocephalic, Atraumatic Eyes: Conjunctiva not pale ENT: Moist mucous membranes Neck: He has a tracheostomy site which is intact without any signs of infection Cardiovascular: Regular rate, Regular rhythm Respiratory: No distress, CTA bilaterally Abdomen: Soft, Nontender, Nondistended Rectal: He has stool impaction, quite a bit of stool hard, very difficult to disimpact Back: Nontender, Normal Inspection. Negative for: CVA tenderness Extremities: Nontender, No edema Skin: Normal color, No rash Const Vital Signs: 06/26/22 02:04 Temperature 97.6 F L Temperature Source Temporal Pulse Rate 64 Respiratory Rate 15 Blood Pressure 187/73 H Blood Pressure Mean 111 Pulse Ox 96 Oxygen Delivery Method Room Air MDM MDM MDM Narrative Medical decision making narrative: Patient was given an enema in the ED and felt immediate relief his rectal pain is gone and now wants to be discharged which is reasonable. I thought about a KUB however the patient has no abdominal pain, had an obvious fecal impaction and improved after an enema. Therefore I do not believe an x-ray is needed. I certainly thought about labs since he is 82 years old, however patient is back to baseline after an enema and feels significantly improved therefore I believe this can be bypassed. I discussed with him he wants to be discharged home this is quite reasonable Discharge Plan Triage Chief Complaint: Constipation ED Provider: Max Tavera Dx/Rx/DC Orders Clinical Impression: Acute constipation, Fecal impaction Instructions: ED Fecal Impaction, Treated Prescriptions: New docusate sodium [Colace] 100 mg capsule 100 mg PO BID Qty: 20 0RF No Action albuterol sulfate 2.5 mg /3 mL (0.083 %) solution for nebulization 2.5 mg INHALATION Q4H PRN (Reason: Sob &/Or Wheezing) Label Comments: USE 3 ML VIA NEBULIZER EVERY 4 HOURS NEEDED atorvastatin 80 mg tablet 80 mg PO QHS Label Comments: TAKE 1 TABLET BY MOUTH EVERY DAY albuterol sulfate 18 GM HFA aerosol inhaler 2 puff inhalation Q4H PRN (Reason: Sob &/Or Wheezing) Label Comments: COPD bzssnugn-kqu-PB-lycopen-lutein 1 EACH tablet 1 ea PO DAILY Label Comments: SUPPLEMENT thiamine HCl (vitamin B1) 100 mg tablet 100 mg PO BID Label Comments: SUPPLEMENT vitamins A,C,A-sdtg-qmbbyd 14,320-226-200 vonc-lr-bwgc capsule 1 cap PO BID Label Comments: EYE HEALTH acetaminophen 500 MG tablet 500 mg PO Q6H PRN PRN (Reason: Pain Score 1-5/10) Qty: 20 0RF ofloxacin 5 ML drops 1 drp RIGHT EYE 4X/DAY aspirin 81 MG tablet,delayed release (DR/EC) 81 mg PO DAILY erythromycin 5 mg/gram (0.5 %) ointment 1 applic RIGHT EYE QHS Label Comments: INSTILL 1 APPLICATION IN THE RIGHT EYE EVERY DAY AT BEDTIME losartan 50 MG tablet 50 mg PO BID Qty: 60 0RF prednisolone acetate (PF) 5 ML drops,suspension 1 drop OP 4X/DAY hydralazine 25 MG tablet 25 mg PO TID Qty: 90 0RF carvedilol 3.125 MG tablet 3.125 mg PO BID Qty: 60 0RF amlodipine 10 MG tablet 10 mg PO DAILY Qty: 30 0RF furosemide 40 MG tablet 40 mg PO DAILY Qty: 30 0RF menthol-zinc oxide 1 APPLIC ointment 1 applic topical TID Protocol: *Topical Application Instructions APPLICATION INSTRUCTIONS: Apply to affected area of buttocks amoxicillin-pot clavulanate [Augmentin] 875-125 mg tablet 1 tab PO BID 7 Days Qty: 14 0RF cephalexin 500 mg capsule 500 mg PO Q6 Qty: 40 0RF Primary Care Provider: Maninder Malcolm Referrals: Maninder Malcolm PA [Primary Care Provider] - 3-5 Days Disposition Disposition: Home, Self Care
[2022-06-26] MEDS: Fleet Enema 1 ML RC (02:20)
[2022-06-26 03:04] VITALS: BP 156/78; PULSE 70; RESP 16
== END 2022-06-26 05:05 | disposition home or self-care (01) ==
PROVIDERS: Emergency Provider Emergency Medicine; PCP Physician Assistant; Visit Provider Emergency Medicine
DX: K56.41 Fecal impaction (principal); Z87.891 Personal history of nicotine dependence
CPT/HCPCS: 99283

== ENCOUNTER 2022-06-29 00:27 | Emergency (ER) | payer MEDICARE, BC, SELFPAY ==
[2022-06-29 00:28] VITALS: BP 193/79; PULSE 57; RESP 16; TEMP 36.8; O2SAT 97; BMI 26.9
--- NOTE | 2022-06-29 00:48 | RAD_ITS ---
EXAM: XR ABDOMEN, 2 VIEWS AND XR CHEST, 1 VIEW CLINICAL INDICATION: abd pain TECHNIQUE: 6 total images are provided. COMPARISON: April 17, 2021. FINDINGS: Comparison of the chest to April 17, 2021 shows stable moderate left diaphragm elevation but there is increased small wedge-shaped opacity in the medial left lung base, atelectasis versus infiltrate or infarct, but this is not confirmed on decubitus abdomen including the lung bases. Mild linear band of discoid atelectasis at the lateral left lung base. No free intra-peritoneal air on decubitus exam. Upper limits of normal heart size is stable from prior exam. Degenerative spine changes. Moderate stool and gas distending the rectum. Moderate stool in some of the transverse colon. Mild scattered small bowel gas in the upper and mid abdomen. Surgical clips projecting over and to the left of L2-L3 level. RAD/Acute Abd Inc Chest (Portable) IMPRESSION: 1. Prominent scattered bowel gas, within small bowel and colon, nonspecific. Possible ileus or low-grade obstruction. Moderate stool in the transverse colon and rectum. 2. Discoid atelectasis in the left lateral lung base. 3. Question of medial left retrocardiac basilar atelectasis or infiltrate, best seen on the AP upright chest, cannot completely exclude infarct. Electronically Signed: Emily Salas MD at 2:32 EST ,
[2022-06-29 00:59] LABS: Absolute Lymphocyte Count 1.41 X10^3/uL (0.83-4.51); Absolute Neutrophil Count 6.4 X10^3/uL (2.0-7.7); Basophil# 0.06 X10^3/uL; Basophil% 0.7 % (0-1); Eosinophil# 0.18 X10^3/uL; Hematocrit 42.6 % (40-54); Hemoglobin 14.2 g/dL (13.0-16.5); Lymphocyte # 1.41 X10^3/ul (0.83-4.51); Mean Corp Hgb Conc 33.3 g/dL (32-36); Mean Corpuscular Hgb 32.6 pg (27.0-32.0); Mean Corpuscular Volume 97.9 fL (80-94); Mean Platelet Vol. 12.1 fl (6.2-12.0); Monocyte% 9.1 % (0-10); NRBC Flagged by Analyzer 0 % (0-5); Neutrophil # 6.35 X10^3/uL (2.7-7.7); Neutrophil % 71.9 % (47-70); Platelet Count 192 K/mm3 (150-450); RBC Distribution Width CV 13.1 % (11.6-14.6); RBC Distribution Width SD 47.5 fl (35.1-43.9); Red Blood Count 4.35 M/mm3 (4.6-6.2); White Blood Count 8.8 K/mm3 (4.4-11.0)
[2022-06-29 01:16] LABS: AST(SGOT) 30 U/L (15-37); Alanine Aminotransfer ALT/SGPT 21 U/L (16-61); Alkaline Phosphatase 86 U/L (45-117); Anion Gap 9 (5-15); BUN 29 mg/dL (7-18); Bilirubin, Direct 0.21 mg/dL (0.00-0.30); Calcium,Total 8.7 mg/dL (8.5-10.1); Chloride 105 mmol/L (98-107); Creatinine, Serum 0.94 mg/dL (0.70-1.30); EST Glomerular Filtration Rate 82 mL/min (>60); Est Glom Filt Rate - Afr Amer 99 mL/min (>60); Estimated Creatinine Clearance 64.21 ml/min; Globulin 4.5 g/dL (2.2-4.2); Glucose 94 mg/dL (74-106); Protein, Total 7.5 g/dL (6.4-8.2); Sodium Level 139 mmol/L (136-145)
[2022-06-29 01:53] LABS: BNP,B-Type NATRIURETIC PEPTIDE 247.7 pg/mL (0-100)
--- NOTE | 2022-06-29 02:55 | EX.ED.DYSGE1 ---
HPI History of Present Illness Chief Complaint: Constipation Narrative Narrative: Patient is an 82-year-old male who was seen in the hospital a few days ago secondary to constipation. At that time he was given medication and had a bowel movement. He states that since returning home he has not been no longer able to have a BM. He states he has abdominal bloating and pain associated with this and feels that he will need an enema in order to help his symptoms once again and with this presents for evaluation. [facility] Medical History Abdominal aortic aneurysm (AAA) Acute on chronic diastolic (congestive) heart failure (12/06/19) Alcohol dependence Anxiety and depression Watkins's cyst of knee Bilateral carotid artery stenosis BPH (benign prostatic hyperplasia) Carotid artery bruit Chronic atrial fibrillation Chronic right shoulder pain Claudication COPD (chronic obstructive pulmonary disease) Cough Dehydration Erectile dysfunction Essential hypertension Frequent falls Gout History of laryngeal cancer History of left heart catheterization (05/2004) History of myocardial infarction History of nephrolithiasis HLD (hyperlipidemia) Hyperkalemia Hypertensive emergency (12/06/19) Hypomagnesemia Hyponatremia Insomnia MSSA (methicillin susceptible Staphylococcus aureus) infection Near syncope Nonobstructive atherosclerosis of coronary artery Panlobular emphysema Peripheral vascular occlusive disease Secondary pulmonary arterial hypertension SOB (shortness of breath) Thrombocytopenia Vitreous hemorrhage of right eye Home Medications albuterol sulfate 90 mcg/actuation aerosol inhaler 2 puff inhalation Q4H PRN Sob &/Or Wheezing 08/18/16 [History Last Taken 12/05/19] satbeppo-ajt-baukg acid 300 mcg-lycopene 600 mcg-lutein 300 mcg tablet 1 ea PO DAILY SUPPLEMENT 08/18/16 [History Last Taken 12/06/19] acetaminophen 500 mg tablet 500 mg PO Q6H PRN PRN Pain Score 1-5/10 #20 tabs 11/23/19 [Rx Last Taken 11/28/19] albuterol sulfate 2.5 mg/3 mL (0.083 %) solution for nebulization 2.5 mg inhalation Q4H PRN Sob &/Or Wheezing 11/27/19 [History Last Taken 12/06/19] atorvastatin 80 mg tablet 80 mg PO QHS heart 11/27/19 [History Last Taken 12/06/19] thiamine HCl (vitamin B1) 100 mg tablet 100 mg PO BID SUPPLEMENT 11/27/19 [History Last Taken 12/06/19] vitamins A,C,L-pxws-bwymks 4,296 mcg-226 mg-90 mg capsule 1 cap PO BID SUPPLEMENT 11/27/19 [History Last Taken 12/06/19] aspirin 81 mg tablet,delayed release 81 mg PO DAILY HEART HEALTH 11/29/19 [History Last Taken 12/06/19] erythromycin 5 mg/gram (0.5 %) eye ointment 1 applic RIGHT EYE [facility] eye health 11/29/19 [History Last Taken 11/28/19] ofloxacin 0.3 % eye drops 1 drp RIGHT EYE 4X/DAY infection 11/29/19 [History Last Taken 11/29/19] losartan 50 mg tablet 50 mg PO BID #60 tabs 12/01/19 [Rx Last Taken 12/06/19] prednisolone acetate (PF) 1 % eye drops,suspension 1 drop OP 4X/DAY cataract 12/07/19 [History Last Taken Unknown] amlodipine 10 mg tablet 10 mg PO DAILY #30 tabs 12/08/19 [Rx Last Taken Unknown] carvedilol 3.125 mg tablet 3.125 mg PO BID #60 tabs 12/08/19 [Rx Last Taken Unknown] furosemide 40 mg tablet 40 mg PO DAILY #30 tabs 12/08/19 [Rx Last Taken Unknown] hydralazine 25 mg tablet 25 mg PO TID #90 tabs 12/08/19 [Rx Last Taken Unknown] menthol 0.44 %-zinc oxide 20.6 % topical ointment 1 applic topical TID redness 12/08/19 [History Last Taken Unknown] amoxicillin 875 mg-potassium clavulanate 125 mg tablet (Augmentin) 1 tab PO BID 7 days #14 tabs 04/17/21 [Rx Last Taken Unknown] cephalexin 500 mg capsule 500 mg PO Q6 #40 caps 03/21/22 [Rx Last Taken Unknown] docusate sodium 100 mg capsule (Colace) 100 mg PO BID #20 caps 06/26/22 [Rx Last Taken Unknown] polyethylene glycol 3350 17 gram oral powder packet (Miralax) 17 g PO DAILY #100 ea 06/29/22 [Rx Last Taken Unknown] Allergy/AdvReac Type Severity Reaction Status Date / Time iodine Allergy Intermediate Unknown Verified 06/26/22 02:21 Family History Father , 67 Cancer lung Sister , 59 Myocardial infarction Mother , 58 Cancer Pulmonary embolus Brother Cancer throat Surgical History History of abdominal aortic aneurysm repair (06/20/04) History of appendectomy History of tracheostomy Social History Smoking Status: Former smoker alcohol intake: current substance use type: does not use ROS ROS ED Constitutional Constitutional ED: Denies chills or fever(s) ENT ENT ED: Denies sore throat Cardiovascular Cardiovascular: Denies chest pain Respiratory/Chest Respiratory/Chest: Denies cough or dyspnea Gastrointestinal Gastrointestinal: Reports abdominal pain and constipation; Denies diarrhea, nausea or vomiting Genitourinary Genitourinary ED: Denies dysuria Musculoskeletal Musculoskeletal: Denies myalgias Integumentary Denies rash Neurologic Neurologic: Denies headache(s) Hematologic/Lymphatic Hematologic/Lymphatic: Reports easy bleeding and easy bruising EXAM Physical Exam Const Vital Signs: 06/29/22 00:28 Temperature 98.3 F Temperature Source Oral Pulse Rate 57 L Respiratory Rate 16 Blood Pressure 193/79 H Blood Pressure Mean 117 Pulse Ox 97 Oxygen Delivery Method Room Air Positive well nourished, well developed and obese General Appearance ED: well developed Nutritional Appearance: obese HEENT Reports moist mucous membranes Eyes PERRL and EOMs intact bilaterally Neck supple Neck Narrative: Tracheostomy present in the anterior lower neck and there is no signs of infection around the stoma site. Resp normal respiratory effort Resp Narrative: Breath sounds are diminished throughout with faint expiratory wheeze consistent with past medical history but he has no signs of respiratory distress Cardio regular rate and regular rhythm GI non-tender GI Narrative: Abdomen is soft and nontender but slightly distended. Bowel sounds are hypoactive. No voluntary guarding or rigidity. No pulsatile mass or fluid wave Auscultation: hypoactive bowel sounds Palpation: soft Extremity Extremity Narrative: +2 pitting edema to the bilateral lower extremities that is equal and symmetric. Negative Homans' sign bilaterally. Neuro oriented x3 and CN's II-XII intact bilaterally Sensorium / Orientation: alert Psych mental status grossly normal Skin no rashes or lesions noted MDM MDM MDM Narrative Medical decision making narrative: Patient presented to the ER with stable vitals and a soft nonsurgical abdomen. His history is most consistent with recurrent constipation but as he was recently seen I did elect to perform laboratory studies this time as well as an x-ray. My interpretation of the x-ray was constipation with chronic lung findings. The radiologist questioned ileus and even a developing infiltrate however the patient does not have a fever his white count is normal and he does not have any cough. He was given an enema and had a large bowel movement and resolution of his symptoms going against an obstruction or ileus as well. Therefore at this time I do not feel there is a need to add a CT scan as patient's labs revealed no clinically significant findings he has had resolution of symptoms with an enema and the official x-ray read does not clinically correlate with his exam. At this time as the patient is in no acute distress and has had resolution of his constipation he is otherwise safe for discharge Lab Data Attestation: I reviewed the patient's lab results. Labs: Laboratory Results - last 24 hr 06/29/22 06/29/22 06/29/22 00:35 00:35 00:35 WBC 8.8 RBC 4.35 L Hgb 14.2 Hct 42.6 MCV 97.9 H MCH 32.6 H MCHC 33.3 RDW Std Deviation 47.5 H RDW Coeff of [place] 13.1 Plt Count 192 MPV 12.1 H Immature Gran % (Auto) 0.300 Neut % (Auto) 71.9 H Lymph % (Auto) 16.0 L Bowman % (Auto) 9.1 Eos % (Auto) 2.0 Baso % (Auto) 0.7 Absolute Neuts (auto) 6.4 Absolute Lymphs (auto) 1.41 Nucleated RBC % 0 Sodium 139 Potassium 4.0 Chloride 105 Carbon Dioxide 25.0 Anion Gap 9 BUN 29 H Creatinine 0.94 Estim Creat Clear Calc 64.21 Est GFR (MDRD) Af Amer 99 Est GFR (MDRD) Non-Af 82 BUN/Creatinine Ratio 31.0 H Glucose 94 Calcium 8.7 Magnesium 2.0 Total Bilirubin 0.60 Direct Bilirubin 0.21 AST 30 ALT 21 Alkaline Phosphatase 86 B-Natriuretic Peptide 247.7 H Total Protein 7.5 Albumin 3.0 L Globulin 4.5 H Radiography Diagnostic Testing: Clinical Impression(s) from Imaging Studies Acute Abdomen Series 06/29/22 00:48 IMPRESSION: 1. Prominent scattered bowel gas, within small bowel and colon, nonspecific. Possible ileus or low-grade obstruction. Moderate stool in the transverse colon and rectum. 2. Discoid atelectasis in the left lateral lung base. 3. Question of medial left retrocardiac basilar atelectasis or infiltrate, best seen on the AP upright chest, cannot completely exclude infarct. Electronically Signed: Emily Salas MD at 2:32 EST , Acute abdominal series with 1 view chest as interpreted by the emergency medicine physician reveals a nonobstructive bowel gas pattern with large amount of stool in the rectal vault consistent with constipation. 1 view chest x-ray associated with this reveals chronic changes without acute infiltrate pneumothorax or pleural effusion. Discharge Plan Triage Chief Complaint: Constipation ED Provider: George Morse Dx/Rx/DC Orders Clinical Impression: Acute constipation, Essential hypertension, HLD (hyperlipidemia) Instructions: ED Constipation (Adult) Prescriptions: New polyethylene glycol 3350 [Miralax] 17 gram powder in packet 17 g PO DAILY Qty: 100 1RF No Action albuterol sulfate 2.5 mg /3 mL (0.083 %) solution for nebulization 2.5 mg INHALATION Q4H PRN (Reason: Sob &/Or Wheezing) Label Comments: USE 3 ML VIA NEBULIZER EVERY 4 HOURS NEEDED atorvastatin 80 mg tablet 80 mg PO QHS Label Comments: TAKE 1 TABLET BY MOUTH EVERY DAY albuterol sulfate 18 GM HFA aerosol inhaler 2 puff inhalation Q4H PRN (Reason: Sob &/Or Wheezing) Label Comments: COPD azmdxeds-ecg-EC-lycopen-lutein 1 EACH tablet 1 ea PO DAILY Label Comments: SUPPLEMENT thiamine HCl (vitamin B1) 100 mg tablet 100 mg PO BID Label Comments: SUPPLEMENT vitamins A,C,E-zftg-ddxukx 14,320-226-200 skzg-jv-pbmw capsule 1 cap PO BID Label Comments: EYE HEALTH acetaminophen 500 MG tablet 500 mg PO Q6H PRN PRN (Reason: Pain Score 1-5/10) Qty: 20 0RF ofloxacin 5 ML drops 1 drp RIGHT EYE 4X/DAY aspirin 81 MG tablet,delayed release (DR/EC) 81 mg PO DAILY erythromycin 5 mg/gram (0.5 %) ointment 1 applic RIGHT EYE QHS Label Comments: INSTILL 1 APPLICATION IN THE RIGHT EYE EVERY DAY AT BEDTIME losartan 50 MG tablet 50 mg PO BID Qty: 60 0RF prednisolone acetate (PF) 5 ML drops,suspension 1 drop OP 4X/DAY hydralazine 25 MG tablet 25 mg PO TID Qty: 90 0RF carvedilol 3.125 MG tablet 3.125 mg PO BID Qty: 60 0RF amlodipine 10 MG tablet 10 mg PO DAILY Qty: 30 0RF furosemide 40 MG tablet 40 mg PO DAILY Qty: 30 0RF menthol-zinc oxide 1 APPLIC ointment 1 applic topical TID Protocol: *Topical Application Instructions APPLICATION INSTRUCTIONS: Apply to affected area of buttocks amoxicillin-pot clavulanate [Augmentin] 875-125 mg tablet 1 tab PO BID 7 Days Qty: 14 0RF cephalexin 500 mg capsule 500 mg PO Q6 Qty: 40 0RF docusate sodium [Colace] 100 mg capsule 100 mg PO BID Qty: 20 0RF Primary Care Provider: Maninder Malcolm Referrals: Maninder Malcolm, PA [Primary Care Provider] - Activity Restrictions/Additional Instructions: Use the MiraLAX packets as prescribed daily to keep yourself regular and prevent further bouts of constipation. If you have any further concerns please return to the ER for repeat evaluation Disposition Disposition: Home, Self Care Discharge Date/Time: 06/29/22 03:21
[2022-06-29 03:06] VITALS: BP 175/80; PULSE 75; RESP 19; O2SAT 95
--- NOTE | 2022-06-29 06:51 | ED.RN ---
CALLED AND LEFT MESSAGE FOR DAUGHTER TO COME AND PICK OF PATIENT IN THE ED.
--- NOTE | 2022-06-29 07:56 | ED.RN ---
Daughter Omaira is coming to pick patient up. ETA [id number]
== END 2022-06-29 03:21 | disposition home or self-care (01) ==
PROVIDERS: Emergency Provider Emergency Medicine; PCP Physician Assistant; Visit Provider Emergency Medicine
DX: K59.00 Constipation, unspecified (principal); I10 Essential (primary) hypertension; E78.5 Hyperlipidemia, unspecified; I25.10 Atherosclerotic heart disease of native coronary artery without angina pectoris; E66.9 Obesity, unspecified; Z87.891 Personal history of nicotine dependence
CPT/HCPCS: 74022; 80048; 80076; 83735; 83880; 85025; 99285; A4216

== ENCOUNTER 2022-07-24 10:24 | Observation (INO) | payer MEDICARE, BC, SELFPAY ==
[2022-07-24] VITALS (17 sets, daily range): BP systolic 112–230; BP diastolic 59–112; PULSE 50–87; RESP 16–20; TEMP 36.2–36.9; O2SAT 95–98; BMI 26.2; BMI 25.3
--- NOTE | 2022-07-24 10:44 | CT_ITS ---
INDICATION: Neuro deficit, acute, stroke suspected EXAMINATION: CT BRAIN - CT Head Stroke Protocol W/O Contrast Injection TECHNIQUE: Multiple axial images were obtained of the head without intravenous contrast. A radiation dose optimization technique was used for this scan. IV Contrast dosage and agent: None. COMPARISON: April 17, 2021 FINDINGS: BRAIN PARENCHYMA: No intra- or extra-axial hemorrhage. There are patchy areas of low attenuation within the white matter of the cerebral hemispheres, a nonspecific finding most commonly reflecting small vessel ischemia. There is a stable focus of encephalomalacia within the right parietal lobe consistent with an old infarct. No evidence of acute infarct. No intracranial mass or mass effect. There is preservation of the pena/white matter interface. Posterior fossa structures are unremarkable. There are peripheral calcifications of the visualized vertebral and internal carotid arteries. CSF SPACES: Appropriate for age. No hydrocephalus. Basal cisterns are patent. CALVARIUM, SKULL BASE, PARANASAL SINUSES AND MASTOID AIR CELLS: Clear. No discrete lytic or blastic abnormalities. There is a stable nasal bone deformity suggestive of an old injury. ORBITS: There are stable peripheral calcifications of the left lobe. Both extraocular muscles, optic nerves and retrobulbar fat appear unremarkable. CT/STROKE Brain/Head without Cont IMPRESSION: Stable examination demonstrating no acute intracranial process. Small vessel ischemia. Stable focus of encephalomalacia within the right parietal lobe consistent with an old infarct. Atherosclerosis. N.B. : The above Results were Read Back by Mikaela Byrd MD to Aaron Fairbanks MD, and understanding confirmed on 07/24/2022 11:49:35 (ET). Electronically Signed: Mikaela Byrd MD at 11:50 EDT ,
--- NOTE | 2022-07-24 10:45 | EDS_ITS ---
HPI History of Present Illness Chief Complaint: Vision Prob Detail of Chief Complaint: Visual disturbance right eye Informant: patient Limited: other (tracheostomy and no way to verbalize) Onset/Context/Timing Onset: Days (5) Context: Sudden Onset Timing: Continuous Onset: Suddenly at some point 5 days ago, unknown exactly when Current Severity: Moderate Maximum Severity: Moderate Worsened by: Nothing Relieved by: Nothing Associated Symptoms Associated Symptoms: Negative for Headache, Nausea, Vomiting or Chest Pain Narrative Narrative: Patient presents by EMS for a visual disturbance in his right eye that started 5 days ago and has been persistent since then. Denies any new symptoms other than that. No recent fall or injury, denies any recent illness. He has a tracheostomy, he cannot verbalize anything and lives alone so history is extremely limited, he tries to speak a lot but I really cannot understand what he is saying the majority of the time. He seems to be able to answer yes and no questions appropriately and well. He does indicate that he has been constipated but denies any blood in his stool or anywhere else or other issues. No pain, swelling, weakness, numbness in any of his extremities. He is coughing up some mucus on occasion and states that is normal for him since he has had his tracheostomy. 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 [facility] Medical History Abdominal aortic aneurysm (AAA) Acute on chronic diastolic (congestive) heart failure (12/06/19) Alcohol dependence Anxiety and depression Watkins's cyst of knee Bilateral carotid artery stenosis BPH (benign prostatic hyperplasia) Carotid artery bruit Chronic atrial fibrillation Chronic right shoulder pain Claudication COPD (chronic obstructive pulmonary disease) Cough Dehydration Erectile dysfunction Essential hypertension Frequent falls Gout History of laryngeal cancer History of left heart catheterization (05/2004) History of myocardial infarction History of nephrolithiasis HLD (hyperlipidemia) Hyperkalemia Hypertensive emergency (12/06/19) Hypomagnesemia Hyponatremia Insomnia MSSA (methicillin susceptible Staphylococcus aureus) infection Near syncope Nonobstructive atherosclerosis of coronary artery Panlobular emphysema Peripheral vascular occlusive disease Secondary pulmonary arterial hypertension SOB (shortness of breath) Thrombocytopenia Vitreous hemorrhage of right eye Home Medications albuterol sulfate 90 mcg/actuation aerosol inhaler 2 puff inhalation Q4H PRN Sob &/Or Wheezing 04/06/17 [History Last Taken 12/05/19] conbxbmr-eyp-hsvpx acid 300 mcg-lycopene 600 mcg-lutein 300 mcg tablet 1 ea PO DAILY SUPPLEMENT 08/18/16 [History Last Taken 12/06/19] acetaminophen 500 mg tablet 500 mg PO Q6H PRN PRN Pain Score 1-5/10 #20 tabs 11/23/19 [Rx Last Taken 11/28/19] albuterol sulfate 2.5 mg/3 mL (0.083 %) solution for nebulization 2.5 mg inhalation Q4H PRN Sob &/Or Wheezing 11/27/19 [History Last Taken 12/06/19] atorvastatin 80 mg tablet 80 mg PO QHS heart 11/27/19 [History Last Taken 12/06/19] thiamine HCl (vitamin B1) 100 mg tablet 100 mg PO BID SUPPLEMENT 11/27/19 [History Last Taken 12/06/19] vitamins A,C,Z-vodz-ucuvgu 4,296 mcg-226 mg-90 mg capsule 1 cap PO BID SUPPLEMENT 11/27/19 [History Last Taken 12/06/19] aspirin 81 mg tablet,delayed release 81 mg PO DAILY HEART HEALTH 11/29/19 [History Last Taken 12/06/19] erythromycin 5 mg/gram (0.5 %) eye ointment 1 applic RIGHT EYE [facility] eye health 11/29/19 [History Last Taken 11/28/19] ofloxacin 0.3 % eye drops 1 drp RIGHT EYE 4X/DAY infection 11/29/19 [History Last Taken 11/29/19] losartan 50 mg tablet 50 mg PO BID #60 tabs 12/01/19 [Rx Last Taken 12/06/19] prednisolone acetate (PF) 1 % eye drops,suspension 1 drop OP 4X/DAY cataract 12/07/19 [History Last Taken Unknown] amlodipine 10 mg tablet 10 mg PO DAILY #30 tabs 12/08/19 [Rx Last Taken Unknown] carvedilol 3.125 mg tablet 3.125 mg PO BID #60 tabs 12/08/19 [Rx Last Taken Unknown] furosemide 40 mg tablet 40 mg PO DAILY #30 tabs 12/08/19 [Rx Last Taken Unknown] hydralazine 25 mg tablet 25 mg PO TID #90 tabs 12/08/19 [Rx Last Taken Unknown] menthol 0.44 %-zinc oxide 20.6 % topical ointment 1 applic topical TID redness 12/08/19 [History Last Taken Unknown] amoxicillin 875 mg-potassium clavulanate 125 mg tablet (Augmentin) 1 tab PO BID 7 days #14 tabs 04/17/21 [Rx Last Taken Unknown] cephalexin 500 mg capsule 500 mg PO Q6 #40 caps 03/21/22 [Rx Last Taken Unknown] docusate sodium 100 mg capsule (Colace) 100 mg PO BID #20 caps 06/26/22 [Rx Last Taken Unknown] polyethylene glycol 3350 17 gram oral powder packet (Miralax) 17 g PO DAILY #100 ea 06/29/22 [Rx Last Taken Unknown] Allergy/AdvReac Type Severity Reaction Status Date / Time iodine Allergy Intermediate Unknown Verified 06/26/22 02:21 Family History Father , 67 Cancer lung Sister , 59 Myocardial infarction Mother , 58 Cancer Pulmonary embolus Brother Cancer throat Surgical History History of abdominal aortic aneurysm repair (06/20/04) History of appendectomy History of tracheostomy Social History Smoking Status: Former smoker alcohol intake: current substance use type: does not use ROS ROS ED Constitutional Constitutional ED: Denies chills or fever(s) Eyes Eyes: Reports as per HPI and change in vision right; Denies diplopia ENT ENT ED: Denies rhinorrhea or sore throat Cardiovascular Cardiovascular: Denies chest pain Respiratory/Chest Respiratory/Chest: Reports cough; Denies dyspnea Gastrointestinal Gastrointestinal: Denies abdominal pain, diarrhea, nausea or vomiting Genitourinary Genitourinary ED: Denies dysuria or hematuria Musculoskeletal Musculoskeletal: Denies back pain or neck pain Integumentary Denies abscess or rash Neurologic Neurologic: Denies headache(s), paresthesias or weakness EXAM Physical Exam Const Vital Signs: 07/24/22 10:26 07/24/22 10:35 07/24/22 10:48 Temperature 97.8 F Temperature Source Oral Pulse Rate 60 Respiratory Rate 18 Blood Pressure 224/110 H Blood Pressure Mean 148 Pulse Ox 97 Oxygen Delivery Method Room Air Room Air 07/24/22 10:48 07/24/22 11:16 07/24/22 11:25 Temperature 97.6 F L 97.8 F Temperature Source Temporal Oral Pulse Rate 87 61 68 Respiratory Rate 16 18 18 Blood Pressure 224/110 H 230/92 H 198/78 H Blood Pressure Mean 148 138 118 Pulse Ox 98 97 98 Oxygen Delivery Method Room Air Room Air Room Air 07/24/22 12:00 Temperature Temperature Source Pulse Rate 81 Respiratory Rate 16 Blood Pressure 205/92 H Blood Pressure Mean 129 Pulse Ox 98 Oxygen Delivery Method Room Air Positive well nourished and well developed General Appearance ED: well developed and NAD HEENT Reports moist mucous membranes normocephalic and atraumatic Eyes Eyes Narrative: Disconjugate gaze, patient states he is blind in the left eye. Extraocular movements are intact right eye, pupil is reactive. No signs of injury. Visual field deficit laterally both upper and lower quadrants but intact centrally and medially/nasally. Neck full ROM and supple Neck Narrative: Chronic appearing tracheostomy without any hardware, patient because of some clear mucus that he asked for a wipe for and then wipes. Chest Wall inspection of chest normal and palpation of chest normal Resp normal respiratory effort and clear to auscultation bilaterally Cardio regular rate and regular rhythm GI non-tender and non-distended Auscultation: normoactive bowel sounds Palpation: soft Back/Spine no CVA tenderness General Back: other FROM Extremity normal to inspection General Extremety ED: Negative for edema, pulses abnormal or tenderness General Extremity: Negative for edema or pulses abnormal Neuro oriented x3, CN's II-XII intact bilaterally and no sensory deficits noted Neuro Narrative: Limited assessment of speech due to unable to verbalize, but does not seem aphasic. Sensorium / Orientation: awake and alert Motor Exam: strength 5/5 throughout Psych mental status grossly normal Skin no rashes or lesions noted and no wounds NIHSS NIHSS Initial: 1a Level of Consciousness: 0 1b LOC Questions (Score 2 if aphasic/stupor): 0 1c LOC Commands (Only score 1st attempt): 0 2 Best Gaze (If aphasic, use reflexive mvmts.): 0 3 Visual: 2 4 Facial Palsy: 0 5 Motor Arm Right (UN = amputation/fusion): 0 5 Motor Arm Left: 0 6 Motor Leg Right: 0 6 Motor Leg Left: 0 7 Limb ataxia (Only + if out of proportion): 0 8 Sensory (Aphasia/stupor=0 or 1, coma=2): 0 9 Best Language: 0 10 Dysarthria (mute, coma=2, intubated=UN): 0 11 Extinction and Inattention (only scored if +): 0 Total Score: 2 MDM MDM MDM Narrative Medical decision making narrative: Patient with visual field cut but no other abnormal neurologic signs. Sent for emergent CT of the head, does not need angiography since he has had symptoms for [address] shows a small stable infarct and no acute abnormalities, I reviewed the images I agree with the radiologist's interpretation. His blood pressure is very high which is my bigger concern now. Given labetalol and brought it down to 190s and I continued to observe it but then it went back up into the 200s so he was treated additionally with hydralazine after verifying by reviewing her prior echocardiogram that he does not have aortic stenosis. Shahab adkins is doing well otherwise clinically, plan is for admission to PCU for further treatment. History & Record Review Additional record(s) reviewed:: Prior outpatient record (Echo cardiogram 12/07/2019) Lab Data Attestation: I reviewed the patient's lab results. Labs: Laboratory Results - last 24 hr 07/24/22 07/24/22 07/24/22 10:49 11:05 11:05 WBC 8.2 RBC 4.21 L Hgb 13.9 Hct 42.0 MCV 99.8 H MCH 33.0 H MCHC 33.1 RDW Std Deviation 49.9 H RDW Coeff of [place] 13.8 Plt Count 157 MPV 11.5 Immature Gran % (Auto) 0.600 Neut % (Auto) 78.1 H Lymph % (Auto) 10.7 L [place] % (Auto) 9.1 Eos % (Auto) 1.0 Baso % (Auto) 0.5 Absolute Neuts (auto) 6.4 Absolute Lymphs (auto) 0.88 Nucleated RBC % 0 PT 13.5 INR 1.1 APTT 32.5 Sodium Potassium Chloride Carbon Dioxide Anion Gap BUN Creatinine Estim Creat Clear Calc Est GFR (MDRD) Af Amer Est GFR (MDRD) Non-Af BUN/Creatinine Ratio Glucose Calcium Troponin I High Sens POC Glucose 99 07/24/22 11:05 WBC RBC Hgb Hct MCV MCH MCHC RDW Std Deviation RDW Coeff of [place] Plt Count MPV Immature Gran % (Auto) Neut % (Auto) Lymph % (Auto) [place] % (Auto) Eos % (Auto) Baso % (Auto) Absolute Neuts (auto) Absolute Lymphs (auto) Nucleated RBC % PT INR APTT Sodium 143 Potassium 4.3 Chloride 106 Carbon Dioxide 29.0 Anion Gap 8 BUN 32 H Creatinine 1.11 Estim Creat Clear Calc 54.37 Est GFR (MDRD) Af Amer 81 Est GFR (MDRD) Non-Af 67 BUN/Creatinine Ratio 28.8 H Glucose 105 Calcium 8.8 Troponin I High Sens 7 POC Glucose Radiography Diagnostic Testing: Clinical Impression(s) from Imaging Studies Brain CT 07/24/22 10:44 IMPRESSION: Stable examination demonstrating no acute intracranial process. Small vessel ischemia. Stable focus of encephalomalacia within the right parietal lobe consistent with an old infarct. Atherosclerosis. N.B. : The above Results were Read Back by Mikaela Byrd MD to Aaron Fairbanks MD, and understanding confirmed on 07/24/2022 11:49:35 (ET). Electronically Signed: Mikaela Byrd MD at 11:50 EDT , ADDENDUM: 07/24/22 1157 IMPRESSION: Stable examination demonstrating no acute intracranial process. Small vessel ischemia. Stable focus of encephalomalacia within the right parietal lobe consistent with an old infarct. Atherosclerosis. N.B. : The above Results were Read Back by Mikaela Byrd MD to Aaron Fairbanks MD, and understanding confirmed on 07/24/2022 11:49:35 (ET). Electronically Signed: Mikaela Byrd MD at 11:50 EDT , Chest X-Ray 07/24/22 11:22 IMPRESSION: Stable examination demonstrating no acute cardiopulmonary process. Electronically Signed: Mikaela Byrd MD at 11:37 EDT , Rhythm Strip Rhythm Strip: Sinus Rhythm Rate: 60 Ectopy: None EKG Initial EKG: Attestation: I personally reviewed and interpreted this EKG as follows: Interpretation: Sinus Rhythm and No Acute Injury Pattern Comments: Artifact in lead V1, normal sinus rhythm not A-fib/flutter Management Discussion w/another healthcare provider: Hospitalist Stroke Documentation Questions Stroke Team Activated: No (timing > 24h) Was Patient considered for Endovascular Intervention?: No-CTA not indicated IV Thrombolytic Administered: No Discharge Plan Triage Chief Complaint: Vision Prob ED Provider: Aaron Fairbanks Dx/Rx/DC Orders Clinical Impression: Hypertensive urgency, Hemianopia of right eye Prescriptions: No Action albuterol sulfate 2.5 mg /3 mL (0.083 %) solution for nebulization 2.5 mg INHALATION Q4H PRN (Reason: Sob &/Or Wheezing) Label Comments: USE 3 ML VIA NEBULIZER EVERY 4 HOURS NEEDED atorvastatin 80 mg tablet 80 mg PO QHS Label Comments: TAKE 1 TABLET BY MOUTH EVERY DAY albuterol sulfate 18 GM HFA aerosol inhaler 2 puff inhalation Q4H PRN (Reason: Sob &/Or Wheezing) Label Comments: COPD htthwico-rlv-QL-lycopen-lutein 1 EACH tablet 1 ea PO DAILY Label Comments: SUPPLEMENT thiamine HCl (vitamin B1) 100 mg tablet 100 mg PO BID Label Comments: SUPPLEMENT vitamins A,C,Y-rpxd-qhtwkn 14,320-226-200 nefl-tt-ygqo capsule 1 cap PO BID Label Comments: EYE HEALTH acetaminophen 500 MG tablet 500 mg PO Q6H PRN PRN (Reason: Pain Score 1-5/10) Qty: 20 0RF ofloxacin 5 ML drops 1 drp RIGHT EYE 4X/DAY aspirin 81 MG tablet,delayed release (DR/EC) 81 mg PO DAILY erythromycin 5 mg/gram (0.5 %) ointment 1 applic RIGHT EYE QHS Label Comments: INSTILL 1 APPLICATION IN THE RIGHT EYE EVERY DAY AT BEDTIME losartan 50 MG tablet 50 mg PO BID Qty: 60 0RF prednisolone acetate (PF) 5 ML drops,suspension 1 drop OP 4X/DAY hydralazine 25 MG tablet 25 mg PO TID Qty: 90 0RF carvedilol 3.125 MG tablet 3.125 mg PO BID Qty: 60 0RF amlodipine 10 MG tablet 10 mg PO DAILY Qty: 30 0RF furosemide 40 MG tablet 40 mg PO DAILY Qty: 30 0RF menthol-zinc oxide 1 APPLIC ointment 1 applic topical TID Protocol: *Topical Application Instructions APPLICATION INSTRUCTIONS: Apply to affected area of buttocks amoxicillin-pot clavulanate [Augmentin] 875-125 mg tablet 1 tab PO BID 7 Days Qty: 14 0RF cephalexin 500 mg capsule 500 mg PO Q6 Qty: 40 0RF docusate sodium [Colace] 100 mg capsule 100 mg PO BID Qty: 20 0RF polyethylene glycol 3350 [Miralax] 17 gram powder in packet 17 g PO DAILY Qty: 100 1RF Primary Care Provider: Maninder Malcolm Referrals: Maninder Malcolm PA [Primary Care Provider] - Disposition Disposition: Acute Care [facility]
[2022-07-24 11:11] LABS: Bedside Glucose 99 mg/dL (74-106)
[2022-07-24 11:14] LABS: Absolute Lymphocyte Count 0.88 X10^3/uL (0.83-4.51); Absolute Neutrophil Count 6.4 X10^3/uL (2.0-7.7); Basophil# 0.04 X10^3/uL; Basophil% 0.5 % (0-1); Eosinophil# 0.08 X10^3/uL; Hemoglobin 13.9 g/dL (13.0-16.5); Lymphocyte # 0.88 X10^3/ul (0.83-4.51); Lymphocyte % 10.7 % (19-41); Mean Corp Hgb Conc 33.1 g/dL (32-36); Mean Corpuscular Volume 99.8 fL (80-94); Mean Platelet Vol. 11.5 fl (6.2-12.0); Monocyte# 0.75 X10^3/uL; Monocyte% 9.1 % (0-10); NRBC Flagged by Analyzer 0 % (0-5); Neutrophil # 6.42 X10^3/uL (2.7-7.7); Neutrophil % 78.1 % (47-70); Platelet Count 157 K/mm3 (150-450); RBC Distribution Width CV 13.8 % (11.6-14.6); RBC Distribution Width SD 49.9 fl (35.1-43.9); Red Blood Count 4.21 M/mm3 (4.6-6.2); White Blood Count 8.2 K/mm3 (4.4-11.0)
[2022-07-24] MEDS: Labetalol (Prefilled) 20 MG/4 ML IV (11:17)
--- NOTE | 2022-07-24 11:22 | RAD_ITS ---
INDICATION: Neuro deficit, acute, stroke suspected EXAMINATION/TECHNIQUE: X-RAY - XR Chest 1 View COMPARISON: June 29, 2022 FINDINGS: LINES/DEVICES: None. LUNGS: There is a stable left basilar opacity. There is persistent elevation of the left hemidiaphragm. MEDIASTINUM AND CARDIOVASCULAR STRUCTURES: There is stable cardiomegaly. Central airways and mediastinal contour are unremarkable. BONES AND SOFT TISSUES: Unremarkable. RAD/Chest 1 View IMPRESSION: Stable examination demonstrating no acute cardiopulmonary process. Electronically Signed: Mikaela Byrd MD at 11:37 EDT ,
[2022-07-24 11:28] LABS: International Normalized Ratio 1.1; Partial Thromboplast Time 32.5 Seconds (24.1-36.2); Prothrombin Time (Protime)PT. 13.5 SECONDS (11.7-14.9)
[2022-07-24 11:32] LABS: Anion Gap 8 (5-15); BUN 32 mg/dL (7-18); BUN/Creat Ratio 28.8 RATIO (10-20); Calcium,Total 8.8 mg/dL (8.5-10.1); Chloride 106 mmol/L (98-107); Creatinine, Serum 1.11 mg/dL (0.70-1.30); EST Glomerular Filtration Rate 67 mL/min (>60); Est Glom Filt Rate - Afr Amer 81 mL/min (>60); Estimated Creatinine Clearance 54.37 ml/min; Glucose 105 mg/dL (74-106); Potassium 4.3 mmol/L (3.5-5.1); Sodium Level 143 mmol/L (136-145); Troponin-I HS 7 pg/mL (3.0-78.0)
--- NOTE | 2022-07-24 12:52 | CT_ITS ---
We are attempting to reach an attending provider to discuss findings. An addendum with communication details will be sent when the communication is complete. INDICATION: Neuro deficit, acute, stroke suspected EXAMINATION: CT BRAIN AND NECK WITH CONTRAST TECHNIQUE: Noncontrast axial images were obtained of the brain and neck. Subsequently, routine carotid CT angiogram protocol was performed without and with IV contrast. In addition, images were obtained of the [place]. NASCET criteria using the distal ICAs for comparison were used for evaluation of stenoses. 3D reconstructions were reviewed. A radiation dose optimization technique was used for this scan. IV Contrast dosage and agent: 100 cc of Isovue 370 COMPARISON: Noncontrast head CT dated July 24, [address] dated December 06, 2019 FINDINGS: --CT BRAIN: BRAIN PARENCHYMA: No intra- or extra-axial hemorrhage. No evidence of acute infarct. No intracranial mass or mass effect. There is preservation of the pena/white matter interface. Posterior fossa structures are unremarkable. CSF SPACES: Appropriate for age. No hydrocephalus. Basal cisterns are patent. CALVARIUM, SKULL BASE, PARANASAL SINUSES AND MASTOID AIR CELLS: Clear. There are emphysematous changes within the visualized lungs. ASPECTS Score for Acute Strokes: 10 --CTA NECK: AORTIC ARCH AND BRANCHES: There are peripheral calcifications. There are stable focal outpouchings of the aortic arch. RIGHT CCA: There are peripheral calcifications No occlusion, significant stenosis or dissection. RIGHT ICA: There are peripheral calcifications No occlusion, significant stenosis or dissection. LEFT CCA: There are vascular calcifications. No occlusion, significant stenosis or dissection. LEFT ICA: There are vascular calcifications. No occlusion, significant stenosis or dissection. RIGHT VERTEBRAL ARTERY: No occlusion, significant stenosis or dissection. LEFT VERTEBRAL ARTERY: No occlusion, significant stenosis or dissection. NECK SOFT TISSUES: Unremarkable. --CTA HEAD: --Anterior circulation: ICAs: No significant stenosis at the intracranial/visualized segments. ACAs: No significant stenosis at the visualized segments. ACOM: Present. MCAs: No significant stenosis at the visualized segments. --Posterior circulation: PCOMs: Within normal limits tool dresser: No significant stenosis at the visualized segments. BASILAR ARTERY: No significant stenosis. VERTEBRAL ARTERIES: No significant stenosis at the intradural/visualized segments. No evidence of intracranial aneurysm or vascular malformation. CT/STROKE CTA Head AND Neck W/Con IMPRESSION: Atherosclerosis with no hemodynamically significant stenosis. Electronically Signed: Mikaela Byrd MD at 13:37 EDT ,
--- NOTE | 2022-07-24 12:52 | CDU_ITS ---
Reason For Study: Visual Disturbance Rt. Velocities/BP Lt. Velocities/BP Prox CCA 59.7/9.1 cm/sec. Prox CCA 57.2/11.3 cm/sec. Mid CCA 68.5/12.4 cm/sec. Mid CCA 48.7/8.1 cm/sec. Dist CCA 53.4/7.3 cm/sec. Dist CCA 62.5/14.5 cm/sec. Prox ICA 264.0/44.3 cm/sec. Prox ICA 89.7/15.2 cm/sec. Mid ICA 189.5/20.8 cm/sec. Mid ICA 77.3/15.2 cm/sec. Dist ICA 58.9/9.5 cm/sec. Dist ICA 82.6/17.0 cm/sec. Rt. ICA/CCA = 3.9. Lt. ICA/CCA = 1.8. Prox ECA 256.2/12.9 cm/sec. Prox ECA 74.0/9.1 cm/sec. Rt. Vert. 46.7/6.5 cm/sec. Lt. Vert. 72.1/9.2 cm/sec. Right Extracranial There is heterogeneous, irregular atherosclerotic plaque noted in the right common carotid artery. The atherosclerotic plaque causes acoustic shadowing. There is heterogeneous, irregular atherosclerotic plaque noted in the right internal carotid artery. There is heterogeneous, irregular atherosclerotic plaque noted in the right external carotid artery. Antegrade flow is noted in the right vertebral artery. Left Extracranial There is heterogeneous, irregular atherosclerotic plaque noted in the left common carotid artery. There is heterogeneous, irregular atherosclerotic plaque noted in the left internal carotid artery. The atherosclerotic plaque causes acoustic shadowing. There is heterogeneous, irregular atherosclerotic plaque noted in the left external carotid artery. Antegrade flow is noted in the left vertebral artery. Procedure Carotid Duplex 84515. This is a Carotid Duplex examination using B-mode, color flow and specral Doppler. The exam was diagnostic. The study was technically difficult. Exam performed portable in patient room. VL/Carotid Duplex Ultrasound Interpretation Summary Severe (>70%) stenosis right extracranial internal carotid. Mild (<50%) stenosis left extracranial internal carotid. Patent and antegrade vertebrals bilaterally. Ordering Physician: Jimmy Medina Referring Physician: Maninder Malcolm Performed By: Bryan Richards RVT
--- NOTE | 2022-07-24 12:53 | HP.PCM.HOS_ITS ---
HPI - General General Date of Admission: 07/24/22 Date of Service: 07/24/22 Chief Complaint: Right eye visual disturbance HPI Narrative THIERRY ZELAYA, is a 82 M with past medical history is known for chronic A-fib, essential hypertension who presents with right eye visual disturbance. 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 He did experience blurry vision in his right eye which started a day prior to coming in. In view of the persistence of the symptoms presented to the emergency department. Patient was however found to have markedly elevated blood pressure with systolic greater than 220 on admission. Initial head CT obtained came back unremarkable he was admitted to a monitored bed for further evaluation of his right eye visual disturbance and management of his markedly elevated blood pressure [facility] Medical History Abdominal aortic aneurysm (AAA) Acute on chronic diastolic (congestive) heart failure (12/06/19) Alcohol dependence Anxiety and depression Watkins's cyst of knee Bilateral carotid artery stenosis BPH (benign prostatic hyperplasia) Carotid artery bruit Chronic atrial fibrillation Chronic right shoulder pain Claudication COPD (chronic obstructive pulmonary disease) Cough Dehydration Erectile dysfunction Essential hypertension Frequent falls Gout History of laryngeal cancer History of left heart catheterization (05/2004) History of myocardial infarction History of nephrolithiasis HLD (hyperlipidemia) Hyperkalemia Hypertensive emergency (12/06/19) Hypomagnesemia Hyponatremia Insomnia MSSA (methicillin susceptible Staphylococcus aureus) infection Near syncope Nonobstructive atherosclerosis of coronary artery Panlobular emphysema Peripheral vascular occlusive disease Secondary pulmonary arterial hypertension SOB (shortness of breath) Thrombocytopenia Vitreous hemorrhage of right eye Home Medications albuterol sulfate 90 mcg/actuation aerosol inhaler 2 puff inhalation Q4H PRN Sob &/Or Wheezing 08/18/16 [History Last Taken 12/05/19] uzszpjym-kgd-uzxji acid 300 mcg-lycopene 600 mcg-lutein 300 mcg tablet 1 ea PO DAILY SUPPLEMENT 08/18/16 [History Last Taken 12/06/19] acetaminophen 500 mg tablet 500 mg PO Q6H PRN PRN Pain Score 1-5/10 #20 tabs 11/23/19 [Rx Last Taken 11/28/19] albuterol sulfate 2.5 mg/3 mL (0.083 %) solution for nebulization 2.5 mg inhalation Q4H PRN Sob &/Or Wheezing 11/27/19 [History Last Taken 12/06/19] atorvastatin 80 mg tablet 80 mg PO QHS heart 11/27/19 [History Last Taken 12/06/19] thiamine HCl (vitamin B1) 100 mg tablet 100 mg PO BID SUPPLEMENT 11/27/19 [History Last Taken 12/06/19] vitamins A,C,G-nfvc-xgbzfo 4,296 mcg-226 mg-90 mg capsule 1 cap PO BID SUPPLEMENT 11/27/19 [History Last Taken 12/06/19] aspirin 81 mg tablet,delayed release 81 mg PO DAILY HEART HEALTH 11/29/19 [History Last Taken 12/06/19] erythromycin 5 mg/gram (0.5 %) eye ointment 1 applic RIGHT EYE Q eye health 11/29/19 [History Last Taken 11/28/19] ofloxacin 0.3 % eye drops 1 drp RIGHT EYE 4X/DAY infection 11/29/19 [History Last Taken 11/29/19] losartan 50 mg tablet 50 mg PO BID #60 tabs 12/01/19 [Rx Last Taken 12/06/19] prednisolone acetate (PF) 1 % eye drops,suspension 1 drop OP 4X/DAY cataract 12/07/19 [History Last Taken Unknown] amlodipine 10 mg tablet 10 mg PO DAILY #30 tabs 12/08/19 [Rx Last Taken Unknown] carvedilol 3.125 mg tablet 3.125 mg PO BID #60 tabs 12/08/19 [Rx Last Taken Unknown] furosemide 40 mg tablet 40 mg PO DAILY #30 tabs 12/08/19 [Rx Last Taken Unknown] hydralazine 25 mg tablet 25 mg PO TID #90 tabs 12/08/19 [Rx Last Taken Unknown] menthol 0.44 %-zinc oxide 20.6 % topical ointment 1 applic topical TID redness 12/08/19 [History Last Taken Unknown] amoxicillin 875 mg-potassium clavulanate 125 mg tablet (Augmentin) 1 tab PO BID 7 days #14 tabs 04/17/21 [Rx Last Taken Unknown] cephalexin 500 mg capsule 500 mg PO Q6 #40 caps 03/21/22 [Rx Last Taken Unknown] docusate sodium 100 mg capsule (Colace) 100 mg PO BID #20 caps 06/26/22 [Rx Last Taken Unknown] polyethylene glycol 3350 17 gram oral powder packet (Miralax) 17 g PO DAILY #100 ea 06/29/22 [Rx Last Taken Unknown] Allergy/AdvReac Type Severity Reaction Status Date / Time iodine Allergy Intermediate Unknown Verified 06/26/22 02:21 Family History Father , 67 Cancer lung Sister , 59 Myocardial infarction Mother , 58 Cancer Pulmonary embolus Brother Cancer throat Surgical History History of abdominal aortic aneurysm repair (06/20/04) History of appendectomy History of tracheostomy Social History Smoking Status: Former smoker alcohol intake: current substance use type: does not use ROS ROS Narrative GENERAL: denies fever, chills, night sweats, weight loss, anorexia HEENT: denies headache, sinus congestion, or drainage, dysphagia RESPIRATORY: denies cough, sputum production, CARDIAC: denies chest pain, palpitations, orthopnea, PND GASTROINTESTINAL: denies abdominal pain, nausea, vomiting, melena, GENITOURINARY: denies dysuria, urgency, frequency, heamaturia EXTREMITY: denies swelling MUSCULOSKELETAL: denies current joint pain or tenderness NEUROLOGIC: denies focal numbness, weakness, tingling HEMATOLOGIC: denies easy bruising and/or hemorrhage INTEGUMENT: denies rashes PSYCHIATRIC: denies suicidal or homicidal ideation Vital Signs Vital Signs Vital Signs: 07/24/22 10:26 07/24/22 10:35 07/24/22 10:48 Temperature 97.8 F Temperature Source Oral Pulse Rate 60 Respiratory Rate 18 Blood Pressure 224/110 H Blood Pressure Mean 148 Pulse Ox 97 Oxygen Delivery Method Room Air Room Air 07/24/22 10:48 07/24/22 11:16 07/24/22 11:25 Temperature 97.6 F L 97.8 F Temperature Source Temporal Oral Pulse Rate 87 61 68 Respiratory Rate 16 18 18 Blood Pressure 224/110 H 230/92 H 198/78 H Blood Pressure Mean 148 138 118 Pulse Ox 98 97 98 Oxygen Delivery Method Room Air Room Air Room Air 07/24/22 12:00 Temperature Temperature Source Pulse Rate 81 Respiratory Rate 16 Blood Pressure 205/92 H Blood Pressure Mean 129 Pulse Ox 98 Oxygen Delivery Method Room Air Weight Weight: 87.8 kg Body Mass Index (BMI) 26.2 Physical Exam Narrative GENERAL: cooperative HEENT: Atraumatic; normocephalic EYES; opacification of the left eye NECK; tracheostomy in place RESPIRATORY: Diminished to auscultation CARDIOVASCULAR: Regular S1 S2, GI: soft, normoactive bowel sounds, : No Renal angle tenderness; EXTREMITIES: No edema, no clubbing, MUSCULOSKELETAL: no muscle wasting NEURO: Awake; no lateralizing signs. SKIN: No Rash PSYCH; Flat affect Results Lab / Micro Data Result Diagrams: 07/24/22 11:05 07/24/22 11:05 Labs: Laboratory Results - last 24 hr 07/24/22 10:49: POC Glucose 99 07/24/22 11:05: WBC 8.2, RBC 4.21 L, Hgb 13.9, Hct 42.0, MCV 99.8 H, MCH 33.0 H, MCHC 33.1, RDW Std Deviation 49.9 H, RDW Coeff of [place] 13.8, Plt Count 157, MPV 11.5, Immature Gran % (Auto) 0.600, Neut % (Auto) 78.1 H, Lymph % (Auto) 10.7 L, [place] % (Auto) 9.1, Eos % (Auto) 1.0, Baso % (Auto) 0.5, Absolute Neuts (auto) 6.4, Absolute Lymphs (auto) 0.88, Nucleated RBC % 0 07/24/22 11:05: PT 13.5, INR 1.1, APTT 32.5 07/24/22 11:05: Sodium 143, Potassium 4.3, Chloride 106, Carbon Dioxide 29.0, Anion Gap 8, BUN 32 H, Creatinine 1.11, Estim Creat Clear Calc 54.37, Est GFR (MDRD) Af Amer 81, Est GFR (MDRD) Non-Af 67, BUN/Creatinine Ratio 28.8 H, Glucose 105, Calcium 8.8, Troponin I High Sens 7 Rhythm Strip Rhythm Strip: Sinus Rhythm Rate: 60 Ectopy: None Radiology Impression Brain CT 07/24/22 10:44 IMPRESSION: Stable examination demonstrating no acute intracranial process. Small vessel ischemia. Stable focus of encephalomalacia within the right parietal lobe consistent with an old infarct. Atherosclerosis. N.B. : The above Results were Read Back by Mikaela Byrd MD to Aaron Fairbanks MD, and understanding confirmed on 07/24/2022 11:49:35 (ET). Electronically Signed: Mikaela Byrd MD at 11:50 EDT , ADDENDUM: 07/24/22 1157 IMPRESSION: Stable examination demonstrating no acute intracranial process. Small vessel ischemia. Stable focus of encephalomalacia within the right parietal lobe consistent with an old infarct. Atherosclerosis. N.B. : The above Results were Read Back by Mikaela Byrd MD to Aaron Fairbanks MD, and understanding confirmed on 07/24/2022 11:49:35 (ET). Electronically Signed: Mikaela Byrd MD at 11:50 EDT , Chest X-Ray 07/24/22 11:22 IMPRESSION: Stable examination demonstrating no acute cardiopulmonary process. Electronically Signed: Mikaela Byrd MD at 11:37 EDT , Assessment & Plan Assessment/Plan (1) Hypertensive urgency: PLAN: Plan Right-sidedPatient is an 82-year-old gentleman presenting with right eye visual disturbance and found to have markedly elevated blood pressure 1. Disturbance ? Patient has been admitted to monitored bed initial head CT obtained came back unremarkable subsequently ordered MRI of the brain as well as bilateral carotid duplex and 2D echo. Patient was started on aspirin therapy 2. Acute hypertensive urgency ? Did restart patient home medications also added hydralazine as needed for systolic blood pressure goal of less than 160 3. Paroxysmal A-fib ? Rate controlled on beta-blockers patient not on systemic anticoagulation due to significant risk for falls 4. History of laryngeal CA ? Status post laryngectomy patient has tracheostomy in place 5. History of AAA ? Status post repair 6. COPD ? Currently not in exacerbation did continue patient bronchodilator treatment regimen 7. Dyslipidemia -Patient is on statin therapy, continued at home dose 8. DVT prophylaxis - On enoxaparin Time spent in the patient's overall evaluation,decision-making process, review of diagnostic data, adjustment of management, discussion with other providers, nursing nursing and ancillary staff involved in patient's care documentation, 77 minutes Advance planning; did discuss with the patient and family regarding advanced directives as well as CODE STATUS. Did explain the various scenarios involved ( FULL CODE, DNR CCA, DNR CCA with no intubation, and DNR CC and what each meant) patient elected to remain full code with CPR and intubation if needed. Order was placed. Time spent on discussion 18 minutes. Charges/Coding Visit Charges Inpatient E&M: 60334 Init Hosp L3 Procedures Hospitalists Procedures: 20588 Advncd Care Plan 30 Min
[2022-07-24] MEDS: hydrALAZINE 20 MG/ML Vial 10 MG IV (13:33)
[2022-07-24] MEDS: Albuterol 2.5 MG/3 ML VIAL.NEB. INHALATION ×2 (15:00→19:59)
[2022-07-24] MEDS: hydrALAZINE 25 MG Tablet PO ×2 (16:46→23:43)
[2022-07-24] MEDS: amLODIPine 10 MG Tablet PO (16:47)
[2022-07-24] MEDS: Aspirin E.C. 81 MG Tablet PO (16:47)
[2022-07-24] MEDS: Furosemide 40 MG Tablet PO (16:47)
[2022-07-24] MEDS: Losartan Potassium 50 MG Tablet PO ×2 (16:47→23:28)
--- NOTE | 2022-07-24 20:06 | PCM.HOSP.N ---
Hospitalist Note Patient admitting to significant amount of vodka intake daily, will add as needed agents from alcohol abuse order set, CIWA, thiamine, folic acid and multivitamin as well as case management consultation for substance abuse
[2022-07-24 20:24] LABS: Magnesium 2.2 mg/dL (1.6-2.6); Phosphorus 3.8 mg/dL (2.5-4.9)
[2022-07-24] MEDS: Docusate Sodium 100 MG Capsule PO (23:28)
[2022-07-24] MEDS: Erythromycin Base 1 OPTH.TUBE 1 APPLIC RIGHT EYE (23:29)
[2022-07-24] MEDS: Carvedilol 12.5 MG Tablet PO (23:29)
[2022-07-24] MEDS: Atorvastatin Calcium 80 MG Tablet PO (23:29)
[2022-07-25] VITALS (8 sets, daily range): BP systolic 113–180; BP diastolic 64–82; PULSE 49–55; RESP 16–18; TEMP 36.4–37; O2SAT 93–99; BMI 25.3
[2022-07-25] MEDS: Acetaminophen 325 MG Tablet 650 MG PO (03:01)
[2022-07-25 06:09] LABS: Anion Gap 7 (5-15); BUN 29 mg/dL (7-18); BUN/Creat Ratio 25.9 RATIO (10-20); Calcium,Total 8.3 mg/dL (8.5-10.1); Chloride 103 mmol/L (98-107); Cholesterol 166 mg/dL (200); Creatinine, Serum 1.12 mg/dL (0.70-1.30); EST Glomerular Filtration Rate 66 mL/min (>60); Est Glom Filt Rate - Afr Amer 80 mL/min (>60); Estimated Creatinine Clearance 53.89 ml/min; Glucose 98 mg/dL (74-106); High Density Lipoprotein 63 mg/dL; Potassium 4.1 mmol/L (3.5-5.1); Sodium Level 136 mmol/L (136-145); Triglycerides 98 mg/dL; Very Low Density Lipoprotein 20 mg/dL (5-40)
[2022-07-25 06:18] LABS: Absolute Lymphocyte Count 1.61 X10^3/uL (0.83-4.51); Absolute Neutrophil Count 6.1 X10^3/uL (2.0-7.7); Basophil# 0.07 X10^3/uL; Basophil% 0.8 % (0-1); Eosinophils% 2.2 % (0-5); Hematocrit 40.1 % (40-54); Hemoglobin 13.2 g/dL (13.0-16.5); Lymphocyte # 1.61 X10^3/ul (0.83-4.51); Mean Corp Hgb Conc 32.9 g/dL (32-36); Mean Corpuscular Hgb 32.8 pg (27.0-32.0); Mean Corpuscular Volume 99.8 fL (80-94); Mean Platelet Vol. 12.1 fl (6.2-12.0); Monocyte# 0.87 X10^3/uL; Monocyte% 9.7 % (0-10); NRBC Flagged by Analyzer 0 % (0-5); Neutrophil # 6.14 X10^3/uL (2.7-7.7); Neutrophil % 68.6 % (47-70); Platelet Count 195 K/mm3 (150-450); RBC Distribution Width SD 50.8 fl (35.1-43.9); Red Blood Count 4.02 M/mm3 (4.6-6.2)
[2022-07-25] MEDS: hydrALAZINE 25 MG Tablet PO (08:06)
[2022-07-25] MEDS: Polyethylene Glycol 3350 17 GM PACKET PO (08:06)
[2022-07-25] MEDS: Losartan Potassium 50 MG Tablet PO (08:07)
[2022-07-25] MEDS: Aspirin E.C. 81 MG Tablet PO (08:07)
[2022-07-25] MEDS: Furosemide 40 MG Tablet PO (08:07)
[2022-07-25] MEDS: Carvedilol 12.5 MG Tablet PO (08:07)
[2022-07-25] MEDS: amLODIPine 10 MG Tablet PO (08:07)
[2022-07-25] MEDS: Enoxaparin 40 MG/0.4 ML Syringe SC (08:07)
[2022-07-25] MEDS: Folic Acid 1 MG Tablet PO (08:08)
[2022-07-25] MEDS: Docusate Sodium 100 MG Capsule PO (08:08)
[2022-07-25] MEDS: Thiamine Hydrochloride 100 MG Tablet PO (08:08)
[2022-07-25] MEDS: Multivitamins,Ther W-Minerals Tablet 1 TABLET PO (08:08)
[2022-07-25] MEDS: Nystatin Powder 15gm Bottle 1 APPLIC TOPICAL (08:09)
[2022-07-25] MEDS: Menthol/Lanolin/Calamine/Znox 113 GM Tube 1 APPLIC TOPICAL (08:09)
--- NOTE | 2022-07-25 09:00 | MRI_ITS ---
HISTORY: Discharge disturbance. TECHNIQUE: Multiplanar and multisequence MR images of the brain were obtained without contrast. 287 images. COMPARISON: CT prior day. FINDINGS: Motion artifact lowers the sensitivity of examination. BRAIN PARENCHYMA: Moderate foci and small zones of increased T2 FLAIR signal in the bilateral cerebral white matter. Small old left frontal, right parietal, and right cerebellar infarcts. No abnormal focus of restricted diffusion. No acute intracranial hemorrhage identified. CSF SPACES: Moderate generalized volume loss. No significant midline shift or other mass effect.No extra-axial fluid collection. VASCULAR SYSTEM: Major intracranial flow voids are maintained. PARANASAL SINUSES AND MASTOID AIR CELLS: No significant air fluid levels. 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 Right lens resection with mild scleral thickening. MRI/Brain without Contrast IMPRESSION: No evidence for acute infarct. Moderate chronic involutional and white matter changes. 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 Electronically Signed: Madison Pope MD at 11:34 EDT ,
--- NOTE | 2022-07-25 10:59 | NURSING ---
daughter Omaira called states she noted patient has not been taking pills noted for maybe 2 week or so will notify
[2022-07-25] MEDS: hydrALAZINE 50 MG Tablet PO (13:52)
--- NOTE | 2022-07-25 15:37 | CASEMGMT ---
Addendum entered by Moon Deluna 07/25/22 16:16: MIESHA GRIER received call from [facility] and they are able to accept the patient with Monday start of care. MIESHA GRIER updated patient and daughter and had no further questions or concerns at this time. Original Note: MIESHA GRIER in to complete BRYANT form with patient, daughter at bedside. MIESHA GRIER explained BRYANT form to patient, patient voiced understanding. Patient preferred daughter sign BRYANT form. Daughter signed BRYANT form and filed in chart. Patient provided with copy of signed BRYANT form. MIESHA GRIER discuss progress with therapy and recommendations for C at discharge. Patient is agreeable to [facility]. A list of [facility] providers including quality and resource use data and consistent with the patient?s preferred geographical region, medical needs, and insurance network were provided from the [employer] Guide. Patient prefers [facility]. Patient denied other needs at discharge, states he has walker at home. MIESHA GRIER called and made referral to [facility], awaiting call back with acceptance. CM will continue to follow this patient and plan for safe discharge.
--- NOTE | 2022-07-25 15:57 | PCM.DC.SUM ---
Providers Date of Admission: 07/24/22 Date of Discharge: 07/25/22 Primary Care Physician: RONNI Linton Reason For Visit: HTN, VISUAL DISTURBANCE Diagnosis Discharge Diagnosis (1) Hypertensive urgency: Status: Acute Code(s): I16.0 - Hypertensive urgency Medications at Discharge Home Medications albuterol sulfate 90 mcg/actuation aerosol inhaler 2 puff inhalation Q4H PRN Sob &/Or Wheezing 08/18/16 fvvldrlx-ato-gekrp acid 300 mcg-lycopene 600 mcg-lutein 300 mcg tablet 1 ea PO DAILY SUPPLEMENT 08/18/16 acetaminophen 500 mg tablet 500 mg PO Q6H PRN PRN Pain Score 1-5/10 #20 tabs 11/23/19 albuterol sulfate 2.5 mg/3 mL (0.083 %) solution for nebulization 2.5 mg inhalation Q4H PRN Sob &/Or Wheezing 11/27/19 atorvastatin 80 mg tablet 80 mg PO QHS heart 11/27/19 thiamine HCl (vitamin B1) 100 mg tablet 100 mg PO BID SUPPLEMENT 11/27/19 vitamins A,C,C-vngs-ulatyg 4,296 mcg-226 mg-90 mg capsule 1 cap PO BID SUPPLEMENT 11/27/19 aspirin 81 mg tablet,delayed release 81 mg PO DAILY HEART HEALTH 11/29/19 erythromycin 5 mg/gram (0.5 %) eye ointment 1 applic RIGHT EYE QHS eye health 11/29/19 ofloxacin 0.3 % eye drops 1 drp RIGHT EYE 4X/DAY infection 11/29/19 losartan 50 mg tablet 50 mg PO BID #60 tabs 12/01/19 prednisolone acetate (PF) 1 % eye drops,suspension 1 drop OP 4X/DAY cataract 12/07/19 amlodipine 10 mg tablet 10 mg PO DAILY #30 tabs 12/08/19 carvedilol 3.125 mg tablet 3.125 mg PO BID #60 tabs 12/08/19 furosemide 40 mg tablet 40 mg PO DAILY #30 tabs 12/08/19 hydralazine 25 mg tablet 25 mg PO TID #90 tabs 12/08/19 menthol 0.44 %-zinc oxide 20.6 % topical ointment 1 applic topical TID redness 12/08/19 amoxicillin 875 mg-potassium clavulanate 125 mg tablet (Augmentin) 1 tab PO BID 7 days #14 tabs 12/04/21 cephalexin 500 mg capsule 500 mg PO Q6 #40 caps 03/21/22 docusate sodium 100 mg capsule (Colace) 100 mg PO BID #20 caps 06/26/22 polyethylene glycol 3350 17 gram oral powder packet (Miralax) 17 g PO DAILY #100 ea 06/29/22 Hospital Course Operations None Procedures - (MRI brain, CT brain, CTA head and neck, carotid ultrasound) Summary of Care Provided Minutes Spent on Discharge: 38 Hospital Course: Mr. Washington is an 82-year-old white male who presents emergency department at [facility] on 07/24/2022 with a right eye visual blurriness. It started the day prior to presentation and it was persistent therefore he presented to the emergency department. By the time of evaluation by the development mechanic his right eye disturbance had resolved. His blood pressure was markedly elevated with systolics greater than 220 on admission. The patient had been noncompliant with his medications at home and it was felt this was likely the etiology of his elevated blood pressure. A CT of his head was performed on admission and showed no acute intracranial process with small vessel ischemic changes and stable foci of encephalomalacia in the right parietal lobe consistent with an old infarct. CTA of the head and neck was unremarkable however the patient has a known history of carotid disease and a duplex was performed. He does have stenosis of the carotid artery greater than 75% per duplex report. The patient does indicate he follows as an outpatient with vascular surgery and I will have him continue follow-up with this after discharge. He was admitted to a telemetry floor. 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 The patient is not on anticoagulation despite his history of paroxysmal atrial fibrillation. He has been in and out of A-fib since hospitalization and per discussion with the patient he was stopped because of frequent falls. Given this and his negative MRI we will continue to hold anticoagulation however I do encourage outpatient follow-up with neurology given his history. He will be maintained on aspirin and we strongly encouraged compliant with his home medications. Blood pressure at the time of discharge with reinitiation of his home medication was 113/64. He was evaluated by physical and Occupational Therapy and they recommended ongoing home health therapy at discharge. This was coordinated at the time of discharge and the patient will be followed by home health. I recommended, given the history of previous stroke, that he have neurology follow-up after discharge and that he be reevaluated for full anticoagulation with Mariaelena at some point in the future that so his stability can be reassessed. The patient is an excessive drinker at home and I suspect this contributes to his balance issues. Discharge diagnoses: Right eye blurred vision-resolved Hypertensive urgency PAF History of laryngeal cancer History of AAA status post repair COPD Hyperlipidemia Hypertension Alcohol abuse History of tobacco abuse Physical Exam Narrative Patient admits he had been on anticoagulation previously but thinks this was stopped related to his falls at home. He also is an alcohol enthusiast. Const alert, oriented x3 and no apparent distress Constitutional Narrative: Elderly white male sitting on the edge of the bed, appears comfortable nontoxic General Appearance: cooperative, comfortable, well kempt and well developed Orientation / Consciousness: awake, oriented to person, oriented to place and oriented to time Exam Limitations: no limitations Nutritional Appearance: overweight HEENT normocephalic, head/scalp atraumatic and moist oral mucous membranes; Negative for hearing grossly normal bilaterally HEENT Narrative: Moderate hearing loss, dentition is poor, Mallampati is 2 Eyes EOMs intact bilaterally and conjunctivae normal Eyes Narrative: No scleral icterus, left eye is nonreactive to light and patient has a known history of blindness Neck no lymphadenopathy and supple Neck Narrative: Stoma at neck with no signs of maceration or infection, trachea midline, no thyroid enlargement Resp normal respiratory effort, no retractions and no use of accessory muscles Resp Narrative: Diffusely diminished with few scattered end expiratory wheezes Auscultation: wheezes; Negative for rales or rhonchi Cardio regular rate, regular rhythm, S1 normal heart sound, S2 normal heart sound, no murmurs, no rub, no gallops and no clicks GI normal to inspection, nondistended, normoactive bowel sounds, soft to palpation and non-tender Extremity no clubbing, cyanosis or edema Extremity Narrative: 2+ pedal pulses Skin no rashes or lesions noted, no wounds, skin turgor normal and no jaundice Neuro oriented x3, moves all extremities, no focal motor deficits and no sensory deficits noted Neuro Narrative: Left eye is nonreactive to light, right eye is intact with no visual disturbances and normal extraocular movements, all other cranial nerves are normal, patient is unable to vocalize secondary to history of laryngeal cancer, mild generalized weakness Sensorium / Orientation: awake, alert, oriented to person, oriented to place and oriented to time Psych affect normal Psych Narrative: Appropriately interactive Weight / BMI Weight Weight: 84.8 kg Body Mass Index (BMI) 25.3 ABG / Lab / Microbiology Data Result Diagrams: 07/25/22 05:24 07/25/22 05:24 Laboratory: Laboratory Results - last 24 hr 07/24/22 11:05: Phosphorus 3.8, Magnesium 2.2 07/25/22 05:24: WBC 9.0, RBC 4.02 L, Hgb 13.2, Hct 40.1, MCV 99.8 H, MCH 32.8 H, MCHC 32.9, RDW Std Deviation 50.8 H, RDW Coeff of [place] 14.0, Plt Count 195, MPV 12.1 H, Immature Gran % (Auto) 0.700, Neut % (Auto) 68.6, Lymph % (Auto) 18.0 L, Butler % (Auto) 9.7, Eos % (Auto) 2.2, Baso % (Auto) 0.8, Absolute Neuts (auto) 6.1, Absolute Lymphs (auto) 1.61, Nucleated RBC % 0 07/25/22 05:24: Sodium 136, Potassium 4.1, Chloride 103, Carbon Dioxide 26.0, Anion Gap 7, BUN 29 H, Creatinine 1.12, Estim Creat Clear Calc 53.89, Est GFR (MDRD) Af Amer 80, Est GFR (MDRD) Non-Af 66, BUN/Creatinine Ratio 25.9 H, Glucose 98, Calcium 8.3 L, Triglycerides 98, Cholesterol 166, LDL Cholesterol 83, VLDL Cholesterol 20, HDL Cholesterol 63 Radiography Diagnostic Testing: Radiology Impression Brain MRI 07/25/22 09:00 IMPRESSION: No evidence for acute infarct. Moderate chronic involutional and white matter changes. 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 Electronically Signed: Madison Pope MD at 11:34 EDT Reading Location ID and State: [facility] / [place] Tel , Service support , D/C Instructions Discharge Diet: Low fat / Low cholesterol Discharge Activity: Return to Normal Activity Meaningful Use Info Meaningful Use Diagnoses (Choose all that apply): None applicable Discharge Plan Admission Admit Date/Time: 07/24/22 12:41 Primary Reason for Your Visit: Right eye blurred vision Attending Provider: Ludy Andrade Primary Care Provider: Maninder Malcolm Consulting Providers: Jimmy Medina Instructions Additional Instructions / Restrictions: 1. Please take all medications as prescribed as this may have contributed to your blurry vision on presentation. Discharge Orders/Prescriptions Prescriptions: Continued albuterol sulfate 2.5 mg /3 mL (0.083 %) solution for nebulization 2.5 mg INHALATION Q4H PRN (Reason: Sob &/Or Wheezing) Label Comments: USE 3 ML VIA NEBULIZER EVERY 4 HOURS NEEDED atorvastatin 80 mg tablet 80 mg PO QHS Label Comments: TAKE 1 TABLET BY MOUTH EVERY DAY albuterol sulfate 18 GM HFA aerosol inhaler 2 puff inhalation Q4H PRN (Reason: Sob &/Or Wheezing) Label Comments: COPD vrpjoyrd-cis-UW-lycopen-lutein 1 EACH tablet 1 ea PO DAILY Label Comments: SUPPLEMENT thiamine HCl (vitamin B1) 100 mg tablet 100 mg PO BID Label Comments: SUPPLEMENT vitamins A,C,C-btct-fjplvt 14,320-226-200 ibdg-eu-viny capsule 1 cap PO BID Label Comments: EYE HEALTH acetaminophen 500 MG tablet 500 mg PO Q6H PRN PRN (Reason: Pain Score 1-5/10) Qty: 20 0RF ofloxacin 5 ML drops 1 drp RIGHT EYE 4X/DAY aspirin 81 MG tablet,delayed release (DR/EC) 81 mg PO DAILY erythromycin 5 mg/gram (0.5 %) ointment 1 applic RIGHT EYE QHS Label Comments: INSTILL 1 APPLICATION IN THE RIGHT EYE EVERY DAY AT BEDTIME losartan 50 MG tablet 50 mg PO BID Qty: 60 0RF prednisolone acetate (PF) 5 ML drops,suspension 1 drop OP 4X/DAY hydralazine 25 MG tablet 25 mg PO TID Qty: 90 0RF carvedilol 3.125 MG tablet 3.125 mg PO BID Qty: 60 0RF amlodipine 10 MG tablet 10 mg PO DAILY Qty: 30 0RF furosemide 40 MG tablet 40 mg PO DAILY Qty: 30 0RF menthol-zinc oxide 1 APPLIC ointment 1 applic topical TID Protocol: *Topical Application Instructions APPLICATION INSTRUCTIONS: Apply to affected area of buttocks amoxicillin-pot clavulanate [Augmentin] 875-125 mg tablet 1 tab PO BID 7 Days Qty: 14 0RF cephalexin 500 mg capsule 500 mg PO Q6 Qty: 40 0RF docusate sodium [Colace] 100 mg capsule 100 mg PO BID Qty: 20 0RF polyethylene glycol 3350 [Miralax] 17 gram powder in packet 17 g PO DAILY Qty: 100 1RF Referrals / Follow Up: Maninder Malcolm PA [Primary Care Provider] - Within 1 Week César Molina MD [Non-Staff -Ordering Privileges] - Within 1 Month (H/O Stroke) Disposition Disposition (needs filled in before D/C Order can be placed): Home Health Service Charges/Coding Visit Charges Inpatient E&M: 59239 Disch Hosp >30min
== END 2022-07-25 16:01 | disposition home health service (06) ==
LOC: ED 12:50 → PCU 12:56
PROVIDERS: Family Medicine; Admitting Provider Internal Medicine; Emergency Provider Emergency Medicine; PCP Physician Assistant; Visit Provider Internal Medicine
DX: I16.0 Hypertensive urgency (principal); Z93.0 Tracheostomy status; J43.1 Panlobular emphysema; F10.20 Alcohol dependence, uncomplicated; I48.0 Paroxysmal atrial fibrillation; I25.10 Atherosclerotic heart disease of native coronary artery without angina pectoris; Z87.891 Personal history of nicotine dependence; I10 Essential (primary) hypertension; E78.5 Hyperlipidemia, unspecified; I65.23 Occlusion and stenosis of bilateral carotid arteries; H53.47 Heteronymous bilateral field defects; Z79.899 Other long term (current) drug therapy; Z79.82 Long term (current) use of aspirin
CPT/HCPCS: 36415; 70450; 70496; 70498; 70551; 71045; 80048; 80061; 82962; 83735; 84100; 84484; 85025; 85610; 85730; 92610; 93005; 93880; 94640; 94762; 96372; 96374; 96375; 97162; 97166; 97802; 99221; 99285; Q9967; A4216; G0378

== ENCOUNTER 2022-08-06 04:03 | Emergency (ER) | payer MEDICARE, BC, SELFPAY ==
[2022-08-06 04:04] VITALS: PULSE 94; RESP 65; TEMP 36.1; O2SAT 98; O2SAT 99; BMI 25.9
--- NOTE | 2022-08-06 04:39 | EDS_ITS ---
HPI History of Present Illness Chief Complaint: Headache Informant: patient Onset/Context/Timing Onset: Days (2) Context: Gradual Timing: Continuous Quality -Headache: Positive for Sharp Location: Left temporal area Worsened by: Nothing Relieved by: Nothing Narrative Narrative: Patient presents with left-sided headache that has been constant for the past 2 days. Patient states it is gradually getting worse. Patient describes the pain as sharp. Patient states pain is over the left temporal area. Patient denies any trauma or injury. Patient denies any nausea or vomiting. Patient does admit to some visual changes. Patient denies any fevers but admits to some chills. Patient states he has some pain down the left side of his neck. Patient denies any cough. Patient was recently admitted here for visual changes and headache. Patient had a full stroke work-up at that time. Patient was noted to have some carotid stenosis. [facility] Medical History Abdominal aortic aneurysm (AAA) Acute on chronic diastolic (congestive) heart failure (12/06/19) Alcohol dependence Anxiety and depression Watkins's cyst of knee Bilateral carotid artery stenosis BPH (benign prostatic hyperplasia) Carotid artery bruit Chronic atrial fibrillation Chronic right shoulder pain Claudication COPD (chronic obstructive pulmonary disease) Cough Dehydration Erectile dysfunction Essential hypertension Frequent falls Gout History of laryngeal cancer History of left heart catheterization (05/2004) History of myocardial infarction History of nephrolithiasis HLD (hyperlipidemia) Hyperkalemia Hypertensive emergency (12/06/19) Hypomagnesemia Hyponatremia Insomnia MSSA (methicillin susceptible Staphylococcus aureus) infection Near syncope Nonobstructive atherosclerosis of coronary artery Panlobular emphysema Peripheral vascular occlusive disease Secondary pulmonary arterial hypertension SOB (shortness of breath) Thrombocytopenia Vitreous hemorrhage of right eye Home Medications albuterol sulfate 90 mcg/actuation aerosol inhaler 2 puff inhalation Q4H PRN Sob &/Or Wheezing 08/18/16 [History Last Taken 12/05/19] xpvazqvv-lnf-hvrlm acid 300 mcg-lycopene 600 mcg-lutein 300 mcg tablet 1 ea PO DAILY SUPPLEMENT 08/18/16 [History Last Taken 12/06/19] acetaminophen 500 mg tablet 500 mg PO Q6H PRN PRN Pain Score 1-5/10 #20 tabs 11/23/19 [Rx Last Taken 11/28/19] albuterol sulfate 2.5 mg/3 mL (0.083 %) solution for nebulization 2.5 mg inhalation Q4H PRN Sob &/Or Wheezing 11/27/19 [History Last Taken 12/06/19] atorvastatin 80 mg tablet 80 mg PO QHS heart 11/27/19 [History Last Taken 12/06/19] thiamine HCl (vitamin B1) 100 mg tablet 100 mg PO BID SUPPLEMENT 11/27/19 [History Last Taken 12/06/19] vitamins A,C,N-pitp-hwdqdn 4,296 mcg-226 mg-90 mg capsule 1 cap PO BID SUPPLEMENT 11/27/19 [History Last Taken 12/06/19] aspirin 81 mg tablet,delayed release 81 mg PO DAILY HEART HEALTH 11/29/19 [His tory Last Taken 12/06/19] erythromycin 5 mg/gram (0.5 %) eye ointment 1 applic RIGHT EYE QHS eye health 11/29/19 [History Last Taken 11/28/19] ofloxacin 0.3 % eye drops 1 drp RIGHT EYE 4X/DAY infection 11/29/19 [History Last Taken 11/29/19] losartan 50 mg tablet 50 mg PO BID #60 tabs 12/01/19 [Rx Last Taken 12/06/19] prednisolone acetate (PF) 1 % eye drops,suspension 1 drop OP 4X/DAY cataract 12/07/19 [History Last Taken Unknown] amlodipine 10 mg tablet 10 mg PO DAILY #30 tabs 12/08/19 [Rx Last Taken Unknown] carvedilol 3.125 mg tablet 3.125 mg PO BID #60 tabs 12/08/19 [Rx Last Taken Unknown] furosemide 40 mg tablet 40 mg PO DAILY #30 tabs 12/08/19 [Rx Last Taken Unknown] hydralazine 25 mg tablet 25 mg PO TID #90 tabs 12/08/19 [Rx Last Taken Unknown] menthol 0.44 %-zinc oxide 20.6 % topical ointment 1 applic topical TID redness 12/08/19 [History Last Taken Unknown] amoxicillin 875 mg-potassium clavulanate 125 mg tablet (Augmentin) 1 tab PO BID 7 days #14 tabs 04/17/21 [Rx Last Taken Unknown] cephalexin 500 mg capsule 500 mg PO Q6 #40 caps 03/21/22 [Rx Last Taken Unknown] docusate sodium 100 mg capsule (Colace) 100 mg PO BID #20 caps 06/26/22 [Rx Last Taken Unknown] polyethylene glycol 3350 17 gram oral powder packet (Miralax) 17 g PO DAILY #100 ea 06/29/22 [Rx Last Taken Unknown] Allergy/AdvReac Type Severity Reaction Status Date / Time iodine Allergy Intermediate Unknown Verified 06/26/22 02:21 Family History Father , 67 Cancer lung Sister , 59 Myocardial infarction Mother , 58 Cancer Pulmonary embolus Brother Cancer throat Surgical History History of abdominal aortic aneurysm repair (06/20/04) History of appendectomy History of tracheostomy Social History Smoking Status: Former smoker alcohol intake: current substance use type: does not use ROS ROS ED Constitutional Constitutional ED: Reports chills; Denies fever(s) Eyes Eyes: Reports blurry vision; Denies diplopia ENT ENT ED: Denies rhinorrhea or sore throat Cardiovascular Cardiovascular: Denies chest pain or palpitations Respiratory/Chest Respiratory/Chest: Denies cough or dyspnea Gastrointestinal Gastrointestinal: Denies nausea or vomiting Genitourinary Genitourinary ED: Denies dysuria or hematuria Musculoskeletal Musculoskeletal: Reports neck pain; Denies back pain Integumentary Denies abscess or rash Neurologic Neurologic: Reports headache(s); Denies weakness Allergic/Immunologic Allergic/Immunologic ED: Denies mouth swelling or urticaria EXAM Physical Exam Const Vital Signs: 08/06/22 04:04 08/06/22 04:04 Temperature 97.0 F L Temperature Source Temporal Pulse Rate 94 Respiratory Rate 65 H Pulse Ox 98 99 Oxygen Delivery Method Room Air Room Air Positive well nourished and well developed General Appearance ED: well developed and NAD HEENT Reports moist mucous membranes HEENT Narrative: There is some left temporal tenderness. There is no tenderness over the right temporal area. atraumatic Neck supple and no JVD Resp normal respiratory effort and clear to auscultation bilaterally Cardio regular rate, regular rhythm and no murmurs GI normal to inspection, nondistended, normoactive bowel sounds and non-tender Palpation: soft Extremity normal to inspection General Extremety ED: Negative for edema or tenderness General Extremity: Negative for edema Neuro oriented x3, CN's II-XII intact bilaterally and no sensory deficits noted Sensorium / Orientation: alert Motor Exam: strength 5/5 throughout Psych mental status grossly normal Skin no rashes or lesions noted MDM MDM MDM Narrative Medical decision making narrative: Differential diagnosis includes migraine headache, temporal arteritis, tension headache, infection, and intracranial bleeding. CT scan of the brain will be obtained to assess for intracranial bleeding. CBC will be obtained to assess for leukocytosis and anemia. Sed rate will be obtained to assess for temporal arteritis. Basic metabolic profile will be obtained to assess for electrolyte abnormality and renal function. Lab Data Attestation: I reviewed the patient's lab results. Lab results narrative: CBC shows a slight leukocytosis of 13.6. The remainder was within normal limits. Basic metabolic profile was reviewed and was essentially within normal limits. Sed rate was mildly elevated at 33. COVID-19 rapid antigen was reviewed and was negative. Influenza A and influenza B rapid antigens were reviewed and were negative. Labs: Laboratory Results - last 24 hr 08/06/22 08/06/22 04:10 04:10 WBC 13.6 H RBC 4.44 L Hgb 14.6 Hct 43.0 MCV 96.8 H MCH 32.9 H MCHC 34.0 RDW Std Deviation 47.2 H RDW Coeff of [place] 13.3 Plt Count 268 MPV 10.9 Immature Gran % (Auto) 0.900 Neut % (Auto) 79.3 H Lymph % (Auto) 7.6 L Amelia % (Auto) 10.2 H Eos % (Auto) 1.6 Baso % (Auto) 0.4 Absolute Neuts (auto) 10.8 H Absolute Lymphs (auto) 1.03 Nucleated RBC % 0 ESR 33 H Sodium 136 Potassium 3.8 Chloride 101 Carbon Dioxide 29.0 Anion Gap 6 BUN 18 Creatinine 1.17 Estim Creat Clear Calc 51.59 Est GFR (MDRD) Af Amer 76 Est GFR (MDRD) Non-Af 63 BUN/Creatinine Ratio 15.4 Glucose 108 H Calcium 8.8 Radiography Diagnostic Testing: Clinical Impression(s) from Imaging Studies Brain CT 08/06/22 04:46 IMPRESSION: No acute intracranial findings. Electronically Signed: Delroy Durbin MD at 5:26 EDT Reading Location ID and State: [facility] / [place] Tel , Service support , CT scan of the brain was obtained. There is no acute intracranial abnormality. This was interpreted by the radiologist and was also independently reviewed by myself. Treatment and Re-Evaluation Narrative: Patient was given Reglan and Benadryl. Patient states his headache improved after this. The sed rate was mildly elevated at 33. It is not to the point where it is concerning for temporal arteritis. EMS reported concern for the patient's safety at home. They report that the patient does not see well and has a history of frequent falls. EMS reports that there is dog feces everywhere and patient is unable to keep his home clean. Because of this, consult was placed to social work to discuss these concerns with the patient. Patient understands and is agreeable with the plan. All questions were answered. Care of the patient was turned over to the oncoming physician pending social work consult. Discharge Plan Triage Chief Complaint: Headache ED Provider: Vinicio Trevizo Dx/Rx/DC Orders Clinical Impression: Headache Instructions: ED Headache Unspecified Prescriptions: No Action albuterol sulfate 2.5 mg /3 mL (0.083 %) solution for nebulization 2.5 mg INHALATION Q4H PRN (Reason: Sob &/Or Wheezing) Label Comments: USE 3 ML VIA NEBULIZER EVERY 4 HOURS NEEDED atorvastatin 80 mg tablet 80 mg PO QHS Label Comments: TAKE 1 TABLET BY MOUTH EVERY DAY albuterol sulfate 18 GM HFA aerosol inhaler 2 puff inhalation Q4H PRN (Reason: Sob &/Or Wheezing) Label Comments: COPD qaoppamh-bxd-ME-lycopen-lutein 1 EACH tablet 1 ea PO DAILY Label Comments: SUPPLEMENT thiamine HCl (vitamin B1) 100 mg tablet 100 mg PO BID Label Comments: SUPPLEMENT vitamins A,C,M-wvkc-ycznhj 14,320226-200 cgzd-he-xjgq capsule 1 cap PO BID Label Comments: EYE HEALTH acetaminophen 500 MG tablet 500 mg PO Q6H PRN PRN (Reason: Pain Score 1-5/10) Qty: 20 0RF ofloxacin 5 ML drops 1 drp RIGHT EYE 4X/DAY aspirin 81 MG tablet,delayed release (DR/EC) 81 mg PO DAILY erythromycin 5 mg/gram (0.5 %) ointment 1 applic RIGHT EYE QHS Label Comments: INSTILL 1 APPLICATION IN THE RIGHT EYE EVERY DAY AT BEDTIME losartan 50 MG tablet 50 mg PO BID Qty: 60 0RF prednisolone acetate (PF) 5 ML drops,suspension 1 drop OP 4X/DAY hydralazine 25 MG tablet 25 mg PO TID Qty: 90 0RF carvedilol 3.125 MG tablet 3.125 mg PO BID Qty: 60 0RF amlodipine 10 MG tablet 10 mg PO DAILY Qty: 30 0RF furosemide 40 MG tablet 40 mg PO DAILY Qty: 30 0RF menthol-zinc oxide 1 APPLIC ointment 1 applic topical TID Protocol: *Topical Application Instructions APPLICATION INSTRUCTIONS: Apply to affected area of buttocks amoxicillin-pot clavulanate [Augmentin] 875-125 mg tablet 1 tab PO BID 7 Days Qty: 14 0RF cephalexin 500 mg capsule 500 mg PO Q6 Qty: 40 0RF docusate sodium [Colace] 100 mg capsule 100 mg PO BID Qty: 20 0RF polyethylene glycol 3350 [Miralax] 17 gram powder in packet 17 g PO DAILY Qty: 100 1RF Primary Care Provider: Maninder Malcolm Referrals: Maninder Malcolm, PA [Primary Care Provider] - 3-5 Days
--- NOTE | 2022-08-06 04:46 | CT_ITS ---
STUDY: CT BRAIN WITHOUT CONTRAST REASON FOR EXAM: Male, 82 years old. Headache. TECHNIQUE: Transaxial CT imaging of the brain was performed without administration of intravenous contrast material. Individualized dose optimization techniques were used for this CT. COMPARISON: MRI brain 07/25/2022 FINDINGS: No evidence of intracranial hemorrhage, mass, acute infarct, or hydrocephalus. Chronic infarct right parietal lobe and right cerebellar hemisphere again demonstrated. Chronic microangiopathic changes in the white matter. Atherosclerosis of the intracranial arteries. No acute osseous abnormality. Visualized paranasal sinuses and mastoid air cells patent. Visualized extracranial soft tissues unremarkable. ASPECTS 02/21 CT/Brain/Head without Contrast IMPRESSION: No acute intracranial findings. Electronically Signed: Delroy Durbin MD at 5:26 EDT Reading Location ID and State: [facility] / [place] Tel , Service support ,
--- NOTE | 2022-08-06 04:59 | NURSING ---
EMS REPORTS PATIENT CANNOT WALK OR GET UP ON HIS OWN AND USES A WALKER AND HAS FREQUENT FALLS. THEY REPORT PATIENT HAD MESSED HIMSELF AND THE HOUSE HAS DOG FECES INSIDE. THEY REPORT OVERALL, POOR LIVING CONDITIONS AND HAVE OCNCERNS FOR HIS WELL-BEING WITHIN THE RESIDENCE. DR SUGGS IS AWARE.
[2022-08-06 05:01] LABS: Absolute Lymphocyte Count 1.03 X10^3/uL (0.83-4.51); Absolute Neutrophil Count 10.8 X10^3/uL (2.0-7.7); Basophil# 0.06 X10^3/uL; Basophil% 0.4 % (0-1); Eosinophil# 0.22 X10^3/uL; Eosinophils% 1.6 % (0-5); Hemoglobin 14.6 g/dL (13.0-16.5); Lymphocyte # 1.03 X10^3/ul (0.83-4.51); Lymphocyte % 7.6 % (19-41); Mean Corpuscular Hgb 32.9 pg (27.0-32.0); Mean Corpuscular Volume 96.8 fL (80-94); Mean Platelet Vol. 10.9 fl (6.2-12.0); Monocyte# 1.39 X10^3/uL; Monocyte% 10.2 % (0-10); NRBC Flagged by Analyzer 0 % (0-5); Neutrophil # 10.76 X10^3/uL (2.7-7.7); Neutrophil % 79.3 % (47-70); Platelet Count 268 K/mm3 (150-450); RBC Distribution Width CV 13.3 % (11.6-14.6); RBC Distribution Width SD 47.2 fl (35.1-43.9); Red Blood Count 4.44 M/mm3 (4.6-6.2); White Blood Count 13.6 K/mm3 (4.4-11.0)
[2022-08-06 05:23] LABS: Anion Gap 6 (5-15); BUN 18 mg/dL (7-18); BUN/Creat Ratio 15.4 RATIO (10-20); Calcium,Total 8.8 mg/dL (8.5-10.1); Chloride 101 mmol/L (98-107); Creatinine, Serum 1.17 mg/dL (0.70-1.30); EST Glomerular Filtration Rate 63 mL/min (>60); Est Glom Filt Rate - Afr Amer 76 mL/min (>60); Estimated Creatinine Clearance 51.59 ml/min; Glucose 108 mg/dL (74-106); Potassium 3.8 mmol/L (3.5-5.1); Sodium Level 136 mmol/L (136-145)
[2022-08-06 05:39] LABS: Erythrocyte Sedimentation Rate 33 mm/hr (0-20)
[2022-08-06] MEDS: Metoclopramide 10 MG/2 ML Vial IV (05:46)
[2022-08-06] MEDS: DiphenhydrAMINE 50 MG/ML Syringe 25 MG IV (05:47)
[2022-08-06 08:18] VITALS: BP 188/86; PULSE 97; RESP 16; O2SAT 93
--- NOTE | 2022-08-06 11:25 | CM.ED ---
Social Work Note Referral Source: MIESHA Acosta Referral Reason: resources/ concerns MIESHA Acosta met with SW and reviewed patient's symptoms and concerns regarding his living environment. SW was contacted by patient's daughter, Omaira, inquiring about patient's presence at the ED, explaining she looked on his house cameras and didn't see him at home this morning. SW reviewed patient's reason for coming into the ED and inquired about active resources. Patient's daughter reports the patient is receiving home health care services from [facility] for PT and SW. Patient's daughter reports the SW was assisting the patient with getting connected to VA benefits and had discussed SNF in the past but patient declined. Patient's daughter reports he drinks alcohol daily. Patient's daughter also reports the patient's vision has declined, he struggles with reading and writing, struggles with mobility that is negatively impacted by his alcohol use and can be difficult to understand when he speaks. Patient's daughter explained that the patient's PCP had discussed if patient's symptoms continued to worsen the patient would have no choice but to go to a facility as he is unable to care for himself. Patient's daughter explained the patient's other daughter works at a SNF in [place], [place] and has a bed reserved for patient if he would agreed. Patient's daughter is hopeful he will agree to at least 30 days in SNF and then return home. SW met with patient and introduced herself and role as [facility] Community Health Coordinator. Patient was laying in bed and agreeable to speak with social work assistant. SW reviewed her conversation with patient's daughter; patient confirmed he is receiving home health care and has no other services at this time. SW inquired about his interest in SNF, patient said no. SW inquired about giving patient a list of SNF in case he changes his mind so he can review his options, patient declined. Patient inquired about his ability to go home. SW explained patient's daughter was encouraging the patient to consider SNF temporarily as there is a bed reserved wheere his other daughter works, patient continued to decline and asked about discharging home. SW to review with . NISA met with MD [place] and reviewed patient's current services with [facility], getting connected to [place] services and already starting the conversation regarding SNF, however, patient isn't willing to go at this time. SW to provide resources for [facility] and follow up with APS on Monday. Patient's daughter is able to transport. in agreement with discharge plan. NISA contacted patient's daughter to explain patient was declining SNF or discussing SNF. Patient's daughter explained she spoke with patient's other daughter regarding the SNF she works at and confirmed they still have a bed reserved for the patient. Patient's daughter requested this SW or MD contact patient's PCP to discuss concerns as the PCP told patient's daughter the patient might not have a choice in going due to decline in medical condition. SW to follow up. NISA met with MD Fairbanks to inquire about contacting patient's PCP as he reported to patient's daughter the patient wouldn't have a choice in going to a SNF. MD Fairbanks explained he would send the chart to patient's PCP and encouraged patient's family to follow up with him Monday. explained making a patient go to a SNF is a process that involved APS and wouldn't happen today from the ED as patient is alert and orientated to make his own decisions. still in agreement with d/c home. NISA contacted patient's daughter and reviewed the conversation with MD, explaining he would forward patient's ED information to his PCP and encouraged the family to follow up with the PCP. NISA also explained there is a process to making an individual go to a SNF unwillingly that involves APS and would not be able to happen from ED today as patient is alert and orientated to make his own decisions at this time. Patient's daughter reports understanding and states she will be in to get him as soon as she is able. Plan: NISA providing information regarding [facility], SW to follow up with APS on Monday, patient being discharged to his daughter Omaira Radha MARTINEZ, GI
[2022-08-06 11:55] VITALS: BP 180/88; PULSE 90; RESP 16; O2SAT 99
[2022-08-06 13:00] VITALS: RESP 18
--- NOTE | 2022-08-08 11:51 | CM.ED ---
Social Work Note SW contacted [facility] APS to report concerns regarding patient's living conditions as reported by MD and EMS. SW provided demographic information and reviewed concerns. Tg, APS worker, reports the patient has an open case and inquired about patient's medical history. NISA reviewed MD H&P regarding medical history and concerns. Tg explained if patient returns to ED within the next couple months to contact her with any further concerns. [facility] [phone] Radha Carranza PILING CUTTER, GI
== END 2022-08-06 13:22 | disposition home or self-care (01) ==
PROVIDERS: Emergency Provider Emergency Medicine; PCP Physician Assistant; Visit Provider Emergency Medicine
DX: R51.9 Headache, unspecified (principal); J43.1 Panlobular emphysema; I11.0 Hypertensive heart disease with heart failure; I50.33 Acute on chronic diastolic (congestive) heart failure; I25.10 Atherosclerotic heart disease of native coronary artery without angina pectoris; E78.5 Hyperlipidemia, unspecified; I25.2 Old myocardial infarction; R29.6 Repeated falls; Z59.1 Inadequate housing; Z79.82 Long term (current) use of aspirin; Z79.899 Other long term (current) drug therapy; Z87.891 Personal history of nicotine dependence
CPT/HCPCS: 70450; 80048; 85025; 85652; 87428; 96374; 96375; 99285

== ENCOUNTER 2022-08-18 14:14 | Observation (INO) | payer MEDICARE, BC, SELFPAY ==
[2022-08-18] VITALS (11 sets, daily range): BP systolic 117–164; BP diastolic 51–85; PULSE 62–67; RESP 18–28; TEMP 36.3–37.2; O2SAT 89–98; BMI 25.4
--- NOTE | 2022-08-18 14:54 | EDS_ITS ---
HPI History of Present Illness Chief Complaint: Weakness Informant: patient Onset/Context/Timing Onset: Weeks (1) Context: Gradual Onset Timing: Continuous Quality: Sharp Location: Right knee Worsened by: Weightbearing Relieved by: Nothing Narrative Narrative: Patient presents with generalized weakness that has been getting worse. Patient states he has been having some pain in his right knee has been having difficulty bearing weight because of the pain. Patient describes the pain as sharp. Patient denies any trauma or injury. Patient denies any fevers or chills. Patient denies any paresthesias. Patient states his primary care physician gave him an injection in his right knee today. [facility] Medical History Abdominal aortic aneurysm (AAA) Acute on chronic diastolic (congestive) heart failure (12/06/19) Alcohol dependence Anxiety and depression Watkins's cyst of knee Bilateral carotid artery stenosis BPH (benign prostatic hyperplasia) Carotid artery bruit Chronic atrial fibrillation Chronic right shoulder pain Claudication COPD (chronic obstructive pulmonary disease) Cough Dehydration Erectile dysfunction Essential hypertension Frequent falls Gout History of laryngeal cancer History of left heart catheterization (05/2004) History of myocardial infarction History of nephrolithiasis HLD (hyperlipidemia) Hyperkalemia Hypertensive emergency (12/06/19) Hypomagnesemia Hyponatremia Insomnia MSSA (methicillin susceptible Staphylococcus aureus) infection Near syncope Nonobstructive atherosclerosis of coronary artery Panlobular emphysema Peripheral vascular occlusive disease Secondary pulmonary arterial hypertension SOB (shortness of breath) Thrombocytopenia Vitreous hemorrhage of right eye Home Medications albuterol sulfate 90 mcg/actuation aerosol inhaler 2 puff inhalation Q4H PRN Sob &/Or Wheezing 08/18/16 [History Last Taken 12/05/19] koozvcrb-nnb-cxokv acid 300 mcg-lycopene 600 mcg-lutein 300 mcg tablet 1 ea PO DAILY SUPPLEMENT 08/18/16 [History Last Taken 12/06/19] acetaminophen 500 mg tablet 500 mg PO Q6H PRN PRN Pain Score 1-5/10 #20 tabs 11/23/19 [Rx Last Taken 11/28/19] albuterol sulfate 2.5 mg/3 mL (0.083 %) solution for nebulization 2.5 mg inhalation Q4H PRN Sob &/Or Wheezing 11/27/19 [History Last Taken 12/06/19] atorvastatin 80 mg tablet 80 mg PO QHS heart 11/27/19 [History Last Taken 12/06/19] thiamine HCl (vitamin B1) 100 mg tablet 100 mg PO BID SUPPLEMENT 11/27/19 [History Last Taken 12/06/19] vitamins A,C,T-rscx-rceple 4,296 mcg-226 mg-90 mg capsule 1 cap PO BID SUPPLEMENT 11/27/19 [History Last Taken 12/06/19] aspirin 81 mg tablet,delayed release 81 mg PO DAILY HEART HEALTH 11/29/19 [History Last Taken 12/06/19] erythromycin 5 mg/gram (0.5 %) eye ointment 1 applic RIGHT EYE [facility] eye health 11/29/19 [History Last Taken 11/28/19] ofloxacin 0.3 % eye drops 1 drp RIGHT EYE 4X/DAY infection 11/29/19 [History Last Taken 11/29/19] losartan 50 mg tablet 50 mg PO BID #60 tabs 12/01/19 [Rx Last Taken 12/06/19] prednisolone acetate (PF) 1 % eye drops,suspension 1 drop OP 4X/DAY cataract 12/07/19 [History Last Taken Unknown] amlodipine 10 mg tablet 10 mg PO DAILY #30 tabs 12/08/19 [Rx Last Taken Unknown] carvedilol 3.125 mg tablet 3.125 mg PO BID #60 tabs 12/08/19 [Rx Last Taken Unknown] furosemide 40 mg tablet 40 mg PO DAILY #30 tabs 12/08/19 [Rx Last Taken Unknown] hydralazine 25 mg tablet 25 mg PO TID #90 tabs 12/08/19 [Rx Last Taken Unknown] menthol 0.44 %-zinc oxide 20.6 % topical ointment 1 applic topical TID redness 0 12/08/19 [History Last Taken Unknown] amoxicillin 875 mg-potassium clavulanate 125 mg tablet (Augmentin) 1 tab PO BID 7 days #14 tabs 04/17/21 [Rx Last Taken Unknown] cephalexin 500 mg capsule 500 mg PO Q6 #40 caps 03/21/22 [Rx Last Taken Unknown] docusate sodium 100 mg capsule (Colace) 100 mg PO BID #20 caps 06/26/22 [Rx Last Taken Unknown] polyethylene glycol 3350 17 gram oral powder packet (Miralax) 17 g PO DAILY #100 ea 06/29/22 [Rx Last Taken Unknown] Allergy/AdvReac Type Severity Reaction Status Date / Time iodine Allergy Intermediate Unknown Verified 08/18/22 14:24 Family History Father , 67 Cancer lung Sister , 59 Myocardial infarction Mother , 58 Cancer Pulmonary embolus Brother Cancer throat Surgical History History of abdominal aortic aneurysm repair (06/20/04) History of appendectomy History of tracheostomy Social History Smoking Status: Former smoker alcohol intake: current substance use type: does not use ROS ROS ED Constitutional Constitutional ED: Denies chills or fever(s) Eyes Eyes: Denies blurry vision or change in vision ENT ENT ED: Denies rhinorrhea or sore throat Cardiovascular Cardiovascular: Denies chest pain or palpitations Respiratory/Chest Respiratory/Chest: Denies cough or dyspnea Gastrointestinal Gastrointestinal: Denies nausea or vomiting Genitourinary Genitourinary ED: Denies dysuria or hematuria Musculoskeletal Musculoskeletal: Reports neck pain; Denies back pain Integumentary Denies abscess or rash Neurologic Neurologic: Reports headache(s) and weakness Allergic/Immunologic Allergic/Immunologic ED: Denies mouth swelling or urticaria EXAM Physical Exam Const Vital Signs: 08/18/22 14:16 08/18/22 14:26 08/18/22 16:18 Temperature 97.4 F L Temperature Source Temporal Pulse Rate 63 65 Respiratory Rate 28 H 24 H Respiratory Effort Short of Breath Labored Respiratory Pattern Tachypnea Blood Pressure 133/74 H 160/84 H Blood Pressure Mean 93 109 Pulse Ox 98 90 Oxygen Delivery Method Room Air Room Air 08/18/22 16:44 08/18/22 17:13 Temperature Temperature Source Pulse Rate 62 62 Respiratory Rate 23 H 21 H Respiratory Effort Respiratory Pattern Blood Pressure 164/85 H 153/62 H Blood Pressure Mean 111 92 Pulse Ox 90 92 Oxygen Delivery Method Room Air Positive well nourished and well developed General Appearance ED: well developed and NAD HEENT Reports moist mucous membranes Neck supple and no JVD Resp normal respiratory effort and clear to auscultation bilaterally Cardio regular rate and regular rhythm GI normal to inspection, nondistended, normoactive bowel sounds and non-tender Palpation: soft Extremity normal to inspection Extremity Narrative: There is tenderness over the right knee. There is a moderate effusion. There is no erythema or warmth. There is no pain with short arc range of motion. Range of motion was limited in extreme flexion and extension secondary to pain. There is no laxity appreciated. General Extremety ED: Yes tenderness Neuro oriented x3, CN's II-XII intact bilaterally and no sensory deficits noted Sensorium / Orientation: alert Motor Exam: strength 5/5 throughout Psych mental status grossly normal Skin no rashes or lesions noted MDM MDM MDM Narrative Medical decision making narrative: Differential diagnosis includes generalized weakness, debility, right knee effusion, urinary tract infection, pneumonia, cardiac dysrhythmia, cardiac ischemia, anemia, and electrolyte abnormality. CBC will be obtained to assess for leukocytosis and anemia. Basic metabolic profile will be obtained to assess for electrolyte abnormality and renal function. X-rays of the right knee will be obtained to assess for fracture. Urinalysis will be obtained to assess for urinary tract infection. Chest x-ray will be obtained to assess for pneumonia. EKG will be obtained to assess for cardiac dysrhythmia and cardiac ischemia. High-sensitivity troponin will be obtained to assess for cardiac ischemia. Lab Data Attestation: I reviewed the patient's lab results. Lab results narrative: CBC was reviewed. There is a mild leukocytosis of 14.7. The remainder was within normal limits. Basic metabolic profile was reviewed. BUN was slightly elevated at 28. Sodium was slightly low at 132. The remainder was within normal limits. Urinalysis was reviewed. There is no evidence of urinary tract infection or hematuria. High-sensitivity troponin was reviewed and was normal. Labs: Laboratory Results - last 24 hr 08/18/22 08/18/22 08/18/22 14:50 16:00 Unknown WBC 14.7 H RBC 4.20 L Hgb 13.7 Hct 39.8 L MCV 94.8 H MCH 32.6 H MCHC 34.4 RDW Std Deviation 45.1 H RDW Coeff of [place] 13.0 Plt Count 334 MPV 10.5 Immature Gran % (Auto) 1.000 H Neut % (Auto) 78.1 H Lymph % (Auto) 7.3 L [place] % (Auto) 12.2 H Eos % (Auto) 1.0 Baso % (Auto) 0.4 Absolute Neuts (auto) 11.5 H Absolute Lymphs (auto) 1.08 Nucleated RBC % 0 Differential Comment SCANNED Diff Path Review September foll Sodium 132 L Potassium 4.0 Chloride 99 Carbon Dioxide 29.0 Anion Gap 4 L BUN 28 H Creatinine 0.99 Estim Creat Clear Calc 60.97 Est GFR (MDRD) Af Amer 93 Est GFR (MDRD) Non-Af 77 BUN/Creatinine Ratio 28.3 H Glucose 98 Calcium 8.9 Troponin I High Sens 4 Urine Color Yellow Urine Clarity Clear Urine pH 6.5 Ur Specific [place] 1.015 Urine Protein 500 H Urine Glucose (UA) Normal Urine Ketones Negative Urine Occult Blood 10 H Urine Nitrite Negative Urine Bilirubin Negative Urine Urobilinogen Normal Ur Leukocyte Esterase Negative Urine RBC 0 SEEN Urine WBC 0 SEEN Ur Squamous Epith Cells 0 SEEN Urine Bacteria 0 SEEN Urine Mucus 0 SEEN Radiography Diagnostic Testing: Clinical Impression(s) from Imaging Studies Knee X-Ray 08/18/22 15:02 IMPRESSION: Severe tricompartmental osteoarthrosis most notably along the lateral compartment with large suprapatellar effusion. No evidence of focal fracture. Electronically Signed: Flakito OttDO at 15:54 EDT , Chest X-Ray 08/18/22 15:22 IMPRESSION: Similar appearance compared to prior with no new focal infiltrate. Electronically Signed: Flakito OttDO at 15:55 EDT , X-rays of the right knee were obtained. There are 4 views. On my independent interpretation, there is no acute fracture. There is no dislocation. There is a large effusion. Radiologist also interpreted the x-rays and agrees. Portable 1 view chest x-ray was obtained. On my independent interpretation, lung harrell are clear. There is normal cardiac silhouette. Bony thorax is normal. There is no acute process noted. Radiologist also interpreted the x- ray and agrees. EKG Initial EKG: Interpretation: No Acute Injury Pattern and Atrial Fibrillation (60) Comments: EKG was obtained. On my independent interpretation, it shows atrial fibrillation with a rate of 60. QRS interval was within normal limits. QTc with interval was normal. There is left axis deviation at -35. There are no acute ST or T wave changes noted. This was unchanged compared to previous EKG dated 07/24/2022. Prior EKG tracings: available for review Prior: Unchanged (07/24/2022) Management Discussion w/another healthcare provider: Hospitalist and grocery worker/Case management Treatment and Re-Evaluation :: Patient was given morphine and Zofran here initially. Patient was still having some pain in his neck after this. Patient was given a repeat dose of morphine. grocery worker was in to evaluate the patient and recommended that the patient be admitted for mcc placement. Patient is agreeable with this. Case was discussed with the hospitalist. She will admit the patient for observation. Patient understands and is agreeable with the plan. All questions were answered. Discharge Plan Triage Chief Complaint: Weakness ED Provider: Vinicio Trevizo Dx/Rx/DC Orders Clinical Impression: Debility, General weakness, Effusion of right knee Prescriptions: No Action albuterol sulfate 2.5 mg /3 mL (0.083 %) solution for nebulization 2.5 mg INHALATION Q4H PRN (Reason: Sob &/Or Wheezing) Label Comments: USE 3 ML VIA NEBULIZER EVERY 4 HOURS NEEDED atorvastatin 80 mg tablet 80 mg PO QHS Label Comments: TAKE 1 TABLET BY MOUTH EVERY DAY albuterol sulfate 18 GM HFA aerosol inhaler 2 puff inhalation Q4H PRN (Reason: Sob &/Or Wheezing) Label Comments: COPD czwtsmdd-wfx-AT-lycopen-lutein 1 EACH tablet 1 ea PO DAILY Label Comments: SUPPLEMENT thiamine HCl (vitamin B1) 100 mg tablet 100 mg PO BID Label Comments: SUPPLEMENT vitamins A,C,I-stqv-nxhzon 14,320-226-200 emkh-mq-pjuc capsule 1 cap PO BID Label Comments: EYE HEALTH acetaminophen 500 MG tablet 500 mg PO Q6H PRN PRN (Reason: Pain Score 1-5/10) Qty: 20 0RF ofloxacin 5 ML drops 1 drp RIGHT EYE 4X/DAY aspirin 81 MG tablet,delayed release (DR/EC) 81 mg PO DAILY erythromycin 5 mg/gram (0.5 %) ointment 1 applic RIGHT EYE QHS Label Comments: INSTILL 1 APPLICATION IN THE RIGHT EYE EVERY DAY AT BEDTIME losartan 50 MG tablet 50 mg PO BID Qty: 60 0RF prednisolone acetate (PF) 5 ML drops,suspension 1 drop OP 4X/DAY hydralazine 25 MG tablet 25 mg PO TID Qty: 90 0RF carvedilol 3.125 MG tablet 3.125 mg PO BID Qty: 60 0RF amlodipine 10 MG tablet 10 mg PO DAILY Qty: 30 0RF furosemide 40 MG tablet 40 mg PO DAILY Qty: 30 0RF menthol-zinc oxide 1 APPLIC ointment 1 applic topical TID Protocol: *Topical Application Instructions APPLICATION INSTRUCTIONS: Apply to affected area of buttocks amoxicillin-pot clavulanate [Augmentin] 875-125 mg tablet 1 tab PO BID 7 Days Qty: 14 0RF cephalexin 500 mg capsule 500 mg PO Q6 Qty: 40 0RF docusate sodium [Colace] 100 mg capsule 100 mg PO BID Qty: 20 0RF polyethylene glycol 3350 [Miralax] 17 gram powder in packet 17 g PO DAILY Qty: 100 1RF Primary Care Provider: Maninder Malcolm Referrals: Maninder Malcolm PA [Primary Care Provider] - Disposition Disposition: Acute Care [facility]
--- NOTE | 2022-08-18 15:02 | RAD_ITS ---
STUDY: X-RAY - RIGHT KNEE REASON FOR EXAM: Male, 82 years old. Injury/Pain TECHNIQUE: 4 view(s) of the knee. COMPARISON: None. FINDINGS: There is demineralization of the visualized distal femur. There is demineralization of the tibia and fibula. There is arthrosis of the proximal tibiofibular articulation. There is severe degenerative arthrosis of the medial femorotibial compartment with severe joint space narrowing. There is moderate degenerative arthrosis of the lateral femorotibial compartment with moderate joint space narrowing. There is mild degenerative arthrosis of the patellofemoral articulation. Large suprapatellar effusion is present. The soft tissue structures are unremarkable. RAD/Knee 4 or More Views IMPRESSION: Severe tricompartmental osteoarthrosis most notably along the lateral compartment with large suprapatellar effusion. No evidence of focal fracture. Electronically Signed: Flakito Ott DO at 15:54 EDT ,
[2022-08-18] MEDS: Ondansetron 4 MG/2 ML Vial IV (15:16)
[2022-08-18] MEDS: Morphine 4 MG/ML Syringe IV ×2 (15:16→17:06)
--- NOTE | 2022-08-18 15:22 | RAD_ITS ---
STUDY: X-RAY CHEST REASON FOR EXAM: Male, 82 years old. Cough TECHNIQUE: Single AP portable view of the chest. COMPARISON: 02/16/2020 FINDINGS: Left costophrenic angle chronic blunting is noted similar to prior exam. Mild chronic dispersed interstitial markings are present. There is no demonstrated pleural abnormality. Normal size heart. Normal mediastinum and jevon. Normal visualized pulmonary arteries. There is atherosclerotic tortuosity of the aortic arch and descending thoracic aorta. Normal visualized thoracic spine. Normal visualized ribs, clavicles, and shoulders. There is no demonstrated abnormality of the visualized soft tissue structures of the upper abdomen. RAD/Chest 1 View (Portable) IMPRESSION: Similar appearance compared to prior with no new focal infiltrate. Electronically Signed: Flakito Ott DO at 15:55 EDT ,
[2022-08-18 15:24] LABS: Absolute Lymphocyte Count 1.08 X10^3/uL (0.83-4.51); Absolute Neutrophil Count 11.5 X10^3/uL (2.0-7.7); Basophil# 0.06 X10^3/uL; Basophil% 0.4 % (0-1); Eosinophil# 0.15 X10^3/uL; Hematocrit 39.8 % (40-54); Hemoglobin 13.7 g/dL (13.0-16.5); Lymphocyte # 1.08 X10^3/ul (0.83-4.51); Lymphocyte % 7.3 % (19-41); Mean Corp Hgb Conc 34.4 g/dL (32-36); Mean Corpuscular Hgb 32.6 pg (27.0-32.0); Mean Corpuscular Volume 94.8 fL (80-94); Mean Platelet Vol. 10.5 fl (6.2-12.0); Monocyte% 12.2 % (0-10); NRBC Flagged by Analyzer 0 % (0-5); Neutrophil # 11.49 X10^3/uL (2.7-7.7); Neutrophil % 78.1 % (47-70); POSITIVE DIFFERENTIAL YES; Platelet Count 334 K/mm3 (150-450); RBC Distribution Width SD 45.1 fl (35.1-43.9); White Blood Count 14.7 K/mm3 (4.4-11.0)
[2022-08-18 15:39] LABS: Differential Indicated SCAN CRITERIA MET
[2022-08-18 16:03] LABS: Bacteria 0 SEEN /hpf (None Seen); Mucous, Urine 0 SEEN /hpf (<or=2+); Red Blood Cells-Urine 0 SEEN /hpf (0-5); Squamous Epithelial Cells - UA 0 SEEN /hpf (0-5); White Blood Cells 0 SEEN /hpf (0-5)
[2022-08-18 16:07] LABS: Anion Gap 4 (5-15); BUN 28 mg/dL (7-18); BUN/Creat Ratio 28.3 RATIO (10-20); Calcium,Total 8.9 mg/dL (8.5-10.1); Chloride 99 mmol/L (98-107); Creatinine, Serum 0.99 mg/dL (0.70-1.30); EST Glomerular Filtration Rate 77 mL/min (>60); Est Glom Filt Rate - Afr Amer 93 mL/min (>60); Estimated Creatinine Clearance 60.97 ml/min; Glucose 98 mg/dL (74-106); Sodium Level 132 mmol/L (136-145); Troponin-I HS 4 pg/mL (3.0-78.0)
[2022-08-18 16:16] LABS: Color, Urine Yellow (Yellow); Glucose, Dipstick Normal (Normal); Ketone-Dipstick Negative (Negative); Leukocyte Esterase-Dipstick Negative /ul (Negative); Nitrite-Dipstick Negative (Negative); Occult Blood-Urine 10 /ul (Negative); Protein-Dipstick 500 mg/dl (Negative); Specific Gravity, Urine 1.015 (1.002-1.030); Urine Bilirubin Dipstick Negative (Negative); Urine Clarity Clear (Clear); Urine Urobilinogen Normal (Normal); Urine pH 6.5 (5.0 - 8.0)
[2022-08-18 16:34] LABS: Differential Comment SCANNED
--- NOTE | 2022-08-18 17:05 | PCM.HP.STD ---
HPI - General General Date of Admission: 08/18/22 Date of Service: 08/18/22 Chief Complaint: R knee pain, debility. HPI Narrative The patient is an 82 y/o M w/ PMHx: Chronic AF, Nonobstructive CAD, HTN, HLD, Anxiety and Depression, AAA, COPD, BPH, Carotid disease, Hx Laryngeal cancer, Chronic Diastolic CHF, Former EtOH abuse reporting 2 weeks currently of sobriety since last discharge who presents to the [facility] ED on 08/18/22 with history of progressively worsening debilitating right knee pain over the last 2 weeks with difficulty even bearing weight gradually becoming worse with continuous now sharp discomfort with no recent trauma or injury nor any recent fevers or chills or paresthesias with recent PCP evaluation on day of presentation with steroid injection but no significant improvement prompting ED evaluation. Work-up in the ED included T97.4, heart rate 63, BP 133/74, respiratory rate 28, 98% on room air with most recent vital signs heart rate 62, BP 164/85, respiratory rate 23, 90% oxygenation on room air, CBC with WBC 14.7, hemoglobin 13.7, platelet 334 with left shift, BMP with BUN/creatinine 28/0.99 otherwise not marked appearing, troponin 4, urinalysis unremarkable, chest x-ray with similar appearance compared to prior with no new focal infiltrates noted, plain film of the right knee with severe tricompartmental osteoarthrosis most notably along the lateral compartment with large suprapatellar effusion with no evidence of any focal fracture. In the ED patient ministered Zofran 4 mg IV x1 as well as morphine 4 mg IV x2 doses. [facility] Medical History (Updated 08/18/22 @ 17:[address] Florence Sellers MD) Abdominal aortic aneurysm (AAA) Acute on chronic diastolic (congestive) heart failure (12/06/19) Alcohol dependence Anxiety and depression Watkins's cyst of knee Bilateral carotid artery stenosis BPH (benign prostatic hyperplasia) Carotid artery bruit Chronic atrial fibrillation Chronic right shoulder pain Claudication COPD (chronic obstructive pulmonary disease) Cough Dehydration Erectile dysfunction Essential hypertension Frequent falls Gout History of laryngeal cancer History of left heart catheterization (05/2004) History of myocardial infarction History of nephrolithiasis HLD (hyperlipidemia) Hyperkalemia Hypertensive emergency (12/06/19) Hypomagnesemia Hyponatremia Insomnia MSSA (methicillin susceptible Staphylococcus aureus) infection Near syncope Nonobstructive atherosclerosis of coronary artery Panlobular emphysema Peripheral vascular occlusive disease Secondary pulmonary arterial hypertension SOB (shortness of breath) Thrombocytopenia Vitreous hemorrhage of right eye Home Medications albuterol sulfate 90 mcg/actuation aerosol inhaler 2 puff inhalation Q4H PRN Sob &/Or Wheezing 08/18/16 [History Last Taken 12/05/19] rbxfbpmz-wen-ikims acid 300 mcg-lycopene 600 mcg-lutein 300 mcg tablet 1 ea PO DAILY SUPPLEMENT 08/18/16 [History Last Taken 12/06/19] acetaminophen 500 mg tablet 500 mg PO Q6H PRN PRN Pain Score 1-5/10 #20 tabs 11/23/19 [Rx Last Taken 11/28/19] albuterol sulfate 2.5 mg/3 mL (0.083 %) solution for nebulization 2.5 mg inhalation Q4H PRN Sob &/Or Wheezing 11/27/19 [History Last Taken 12/06/19] atorvastatin 80 mg tablet 80 mg PO QHS heart 11/27/19 [History Last Taken 12/06/19] thiamine HCl (vitamin B1) 100 mg tablet 100 mg PO BID SUPPLEMENT 11/27/19 [History Last Taken 12/06/19] vitamins A,C,P-cdqj-ilaqyf 4,296 mcg-226 mg-90 mg capsule 1 cap PO BID SUPPLEMENT 11/27/19 [History Last Taken 12/06/19] aspirin 81 mg tablet,delayed release 81 mg PO DAILY HEART HEALTH 11/29/19 [History Last Taken 12/06/19] erythromycin 5 mg/gram (0.5 %) eye ointment 1 applic RIGHT EYE [facility] eye health 11/29/19 [History Last Taken 11/28/19] ofloxacin 0.3 % eye drops 1 drp RIGHT EYE 4X/DAY infection 11/29/19 [History Last Taken 11/29/19] losartan 50 mg tablet 50 mg PO BID #60 tabs 12/01/19 [Rx Last Taken 12/06/19] prednisolone acetate (PF) 1 % eye drops,suspension 1 drop OP 4X/DAY cataract 12/07/19 [History Last Taken Unknown] amlodipine 10 mg tablet 10 mg PO DAILY #30 tabs 12/08/19 [Rx Last Taken Unknown] carvedilol 3.125 mg tablet 3.125 mg PO BID #60 tabs 12/08/19 [Rx Last Taken Unknown] furosemide 40 mg tablet 40 mg PO DAILY #30 tabs 12/08/19 [Rx Last Taken Unknown] hydralazine 25 mg tablet 25 mg PO TID #90 tabs 12/08/19 [Rx Last Taken Unknown] menthol 0.44 %-zinc oxide 20.6 % topical ointment 1 applic topical TID redness 12/08/19 [History Last Taken Unknown] amoxicillin 875 mg-potassium clavulanate 125 mg tablet (Augmentin) 1 tab PO BID 7 days #14 tabs 04/17/21 [Rx Last Taken Unknown] cephalexin 500 mg capsule 500 mg PO Q6 #40 caps 03/21/22 [Rx Last Taken Unknown] docusate sodium 100 mg capsule (Colace) 100 mg PO BID #20 caps 06/26/22 [Rx Last Taken Unknown] polyethylene glycol 3350 17 gram oral powder packet (Miralax) 17 g PO DAILY #100 ea 06/29/22 [Rx Last Taken Unknown] Allergy/AdvReac Type Severity Reaction Status Date / Time iodine Allergy Intermediate Unknown Verified 08/18/22 14:24 Family History Father , 67 Cancer lung Sister , 59 Myocardial infarction Mother , 58 Cancer Pulmonary embolus Brother Cancer throat Surgical History (Updated 08/18/22 @ 17:[address] Florence Sellers MD) History of abdominal aortic aneurysm repair (06/20/04) History of appendectomy History of tracheostomy Social History (Updated 08/18/22 @ 17:[address] Florence Sellers MD) household members: none Smoking Status: Former smoker alcohol intake: former details: Current 08/18/22 admission notes 2 weeks sobriety, prior heavy vodka daily. substance use type: does not use ROS ROS Narrative Admission Review of Systems: CONSTITUTIONAL: No weight loss, fever, chills, + weakness or fatigue. HEENT: + Chronic vision deficits. Eyes: No double vision or yellow sclerae. Ears, Nose, Throat: No hearing loss, sneezing, congestion, runny nose or sore throat. SKIN: No rash or itching, lesions, wounds. CARDIOVASCULAR: No chest pain, chest pressure or chest discomfort, palpitations, edema, orthopnea, syncopal events. RESPIRATORY: + Chronic intermittent dyspnea, occasional cough, No wheezing, hemoptysis. GASTROINTESTINAL: No anorexia, nausea, vomiting or diarrhea, abdominal pain, melena, BRBPR. GENITOURINARY: No dysuria, frequency, urgency or retention. NEUROLOGICAL: + Chronic vision deficits, No headache, dizziness, syncope, paralysis, ataxia, numbness or tingling in the extremities, focal weakness, change in bowel or bladder control, seizure. MUSCULOSKELETAL: + muscle, back pain, joint pain or stiffness. HEMATOLOGIC: + anemia, bleeding or bruising. LYMPHATICS: No enlarged nodes. No history of splenectomy. PSYCHIATRIC: + history of depression or anxiety. ENDOCRINOLOGIC: No reports of sweating, cold or heat intolerance. No polyuria or polydipsia. ALLERGIES: No history of asthma, hives, eczema or rhinitis. Vital Signs Vital Signs Vital Signs: 08/18/22 14:16 08/18/22 14:26 08/18/22 16:18 Temperature 97.4 F L Temperature Source Temporal Pulse Rate 63 65 Respiratory Rate 28 H 24 H Respiratory Effort Short of Breath Labored Respiratory Pattern Tachypnea Blood Pressure 133/74 H 160/84 H Blood Pressure Mean 93 109 Pulse Ox 98 90 Oxygen Delivery Method Room Air Room Air 08/18/22 16:44 Temperature Temperature Source Pulse Rate 62 Respiratory Rate 23 H Respiratory Effort Respiratory Pattern Blood Pressure 164/85 H Blood Pressure Mean 111 Pulse Ox 90 Oxygen Delivery Method Room Air Weight Weight: 188 lb 0.869 oz Body Mass Index (BMI) 25.4 Physical Exam Narrative Physical Examination: General: Awake, alert, oriented to self, place and recent events, remains cooperative, seated upright in the ED bed, fatigued, notes R knee pain still 8/10, worse with movement, status post prior tracheal resection with speech difficulties expected. Skin: Normal color, normal turgor, no icterus, no cyanosis except for occasional staged ecchymoses, right knee with significant effusion but no marked erythema noted. HEENT: AT/NC, difficulty with extraocular movements and given bilateral eye deficits with left eye deviated chronically as well as bilateral vision deficits, mildly dry MM, no carotid bruits or JVD noted, status post tracheal resection status post tracheostomy with stoma. Lungs: Diminished, greater bases, mildly increased respiratory rate but no distress, no rales, ronchi or wheezing. Heart: Irregular, rate controlled; no gallop, rub audible. Abdomen: Soft, NTTP, ND, mildly hyperactive BS, no HSM. Extremities: No cyanosis, no clubbing, mild peripheral nonpitting edema. Neurological: Patient awake, alert, oriented as noted, cognitive function appears baseline intact; cranial nerves grossly normal with chronic vision deficits, moving all 4 extremities except for extremely limited right lower extremity movement secondary to pain elicited with notable large knee effusion with no specific erythema, strength accordingly severely globally decreased. Psychiatric: Affect appears fatigued, mildly uncomfortable with knee evaluation, no acute evidence of depressive or anxiety feelings. Results Lab / Micro Data Result Diagrams: 08/18/22 Unknown 08/18/22 14:50 Labs: Laboratory Results - last 24 hr 08/18/22 14:50: Sodium 132 L, Potassium 4.0, Chloride 99, Carbon Dioxide 29.0, Anion Gap 4 L, BUN 28 H, Creatinine 0.99, Estim Creat Clear Calc 60.97, Est GFR (MDRD) Af Amer 93, Est GFR (MDRD) Non-Af 77, BUN/Creatinine Ratio 28.3 H, Glucose 98, Calcium 8.9, Troponin I High Sens 4 08/18/22 16:00: Urine Color Yellow, Urine Clarity Clear, Urine pH 6.5, Ur Specific Hurt 1.015, Urine Protein 500 H, Urine Glucose (UA) Normal, Urine Ketones Negative, Urine Occult Blood 10 H, Urine Nitrite Negative, Urine Bilirubin Negative, Urine Urobilinogen Normal, Ur Leukocyte Esterase Negative, Urine RBC 0 SEEN, Urine WBC 0 SEEN, Ur Squamous Epith Cells 0 SEEN, Urine Bacteria 0 SEEN, Urine Mucus 0 SEEN 08/18/22 : WBC 14.7 H, RBC 4.20 L, Hgb 13.7, Hct 39.8 L, MCV 94.8 H, MCH 32.6 H, MCHC 34.4, RDW Std Deviation 45.1 H, RDW Coeff of [place] 13.0, Plt Count 334, MPV 10.5, Immature Gran % (Auto) 1.000 H, Neut % (Auto) 78.1 H, Lymph % (Auto) 7.3 L, [place] % (Auto) 12.2 H, Eos % (Auto) 1.0, Baso % (Auto) 0.4, Absolute Neuts (auto) 11.5 H, Absolute Lymphs (auto) 1.08, Nucleated RBC % 0, Differential Comment SCANNED, Diff Path Review May foll Radiology Impression Knee X-Ray 08/18/22 15:02 IMPRESSION: Severe tricompartmental osteoarthrosis most notably along the lateral compartment with large suprapatellar effusion. No evidence of focal fracture. Electronically Signed: Flakito OttDO at 15:54 EDT , Chest X-Ray 08/18/22 15:22 IMPRESSION: Similar appearance compared to prior with no new focal infiltrate. Electronically Signed: Flakito OttDO at 15:55 EDT , Assessment & Plan Assessment/Plan (1) Effusion of right knee: PLAN: Plan The patient is an 82 y/o M w/ PMHx: Chronic AF, Nonobstructive CAD, HTN, HLD, Anxiety and Depression, AAA, COPD, BPH, Carotid disease, Hx Laryngeal cancer, Chronic Diastolic CHF, Former EtOH abuse reporting 2 weeks currently of sobriety since last discharge who presents to the [facility] ED on 08/18/22 with history of progressively worsening debilitating right knee pain over the last 2 weeks with difficulty even bearing weight gradually becoming worse with continuous now sharp discomfort with no recent trauma or injury nor any recent fevers or chills or paresthesias with recent PCP evaluation on day of presentation with steroid injection but no significant improvement prompting ED evaluation. #1. Adult FTT secondary to Acute Intractable Right Knee pain with large suprapatellar effusion: We will make medical floor given patient inability to safely care for himself secondary to inability to bear weight, will request orthopedic surgery consultation as patient could greatly benefit from aspiration of the right knee, will obtain procalcitonin as well as ESR and CRP to be cautious and given recent steroid injection on day of presentation would expect potentially some leukocytosis, will trend CBC, maintain on fall precautions, weightbearing as tolerated with as needed pain regimen as well as PT/OT/case management consultation for discharge planning. #2. Recent Sobriety with Prior EtOH Abuse: Patient notes sober x ~2 weeks since his most recent discharge. To be cautious will maintain on PRN agents with CIWA assessment and de-escalate if unremarkable, maintain on multivitamin, thiamine and folic acid. Will obtain mag and phos levels. #3. Chronic atrial fibrillation: We will continue patient home Coreg regimen, not chronically anticoagulated possibly secondary to high fall risk. #4. Nonobstructive CAD: We will continue patient aspirin, statin, Coreg, losartan home regimen. #5. Chronic COPD: Patient not on chronic inhalers per current list nor on chronic supplementation oxygen, will maintain on supplemental oxygen as needed, placed on ATC budesonide therapy with as needed albuterol, encourage head of bed and I-S. #6. Chronic diastolic CHF: We will continue aspirin, statin, Coreg, losartan, Lasix, hydralazine home regimen with judicious IV fluids as needed given history. Last noted echo 12/06/2019 with EF 65%, moderately dilated RV, mild global RV systolic dysfunction, severely enlarged LA and RA, mild MVI, mild to moderate TVI, RVSP 57 mmHg, moderate pulmonary hypertension, trivial AV insufficiency. #7. Anxiety and depression: Per most recent list not on any chronic medications, encourage continued outpatient follow-up and counseling as needed. #8. Carotid disease: We will continue aspirin, statin, hypertensive regimen as noted, no diabetic history. #9. Hypertension: Continue home regimen including hydralazine, Lasix, Coreg, amlodipine, losartan with hold parameters as needed, PRN hydralazine. #10. Hyperlipidemia: We will continue patient home statin therapy. #11. History of AAA: Patient status post AAA repair 2004, encourage continued outpatient follow-up with vascular surgery as previously arranged. #12. History laryngeal cancer: s/p resection and XRT, considered in remission. #13. Former tobacco use: Encourage continued tobacco cessation. #14. BPH: From current list not on any chronic regimen, monitor for symptoms and may add if necessary. #15. DVT prophylaxis: SCDs. #16. CODE status: Patient denies HCPOA or LW in place but notes that if he could not make medical decisions he would want his daughter to be his medical decision-maker. Noted to patient that he could discuss these items with case management/social work for further information on how to go about this. Discussed CODE status at length including difference between FULL code, DNR-CCA and DNR-CC status. Following discussions about the differences in these status, requested Full Code status. Advanced Care Planning Face to Face Time: 16 minutes. Admission Evaluation Time spent evaluating chart, patient history, patient evaluation, care planning and discussion with specialists: 60 minutes. Charges/Coding Visit Charges Inpatient E&M: 65605 Init Hosp L2 Procedures Hospitalists Procedures: 75545 Advncd Care Plan 30 Min
--- NOTE | 2022-08-18 17:12 | CM.ED ---
Addendum entered by Radha Carranza 08/18/22 18:35: NISA updated patient's daughter regarding patient being admitted to [facility] and provided her with floor phone number. Radha Carranza RESEARCH INSTRUCTOR, OIL DISTRIBUTOR Original Note: Social Work Note SW received VMs from [facility] NISA Soria and Director Trinh regarding concerns for patient at home and his and the family's interest in SNF placement. NISA met with MD Trevizo to review current concerns as well as needs. MD reports patient will likely be admitted. SW to discuss SNF with patient as last month patient declined to go to a SNF. SW met with patient and introduced herself and role as [facility] Hatchery Manager. Patient was agreeable to speak with SW. SW reviewed previous interaction with patient and inquired about his interest in going to SNF. Patient shook his head yes and stated for 30 days. SW engaged in reflective listening to ensure patient was stating he wanted to go to SNF for 30 days and return home, patient shook his head yes. SW inquired if patient was wanting to go to [facility] as that is the facility his daughter works at, patient shook his head yes. SW then explained the process of being admitted and making referrals to SNF. Patient inquired about his daughter being at the hospital; SW reports she was unaware if patient's daughter was in the waiting area but SW would call her to discuss the plan. Patient in agreement and states his daughter can visit if she wants to. Patient then spelled pain and pointed to his neck. SW explained she would inform the doctor. NISA met with MD and explained patient was agreeable to a SNF and reporting neck pain. MD to follow up. NISA contacted [facility] NISA Soria and inform her patient was in agreement for SNF and was being reviewed by hospitalist to be admitted. Estella reviewed recent concerns for patient as the patient's living concerns are not suitable and patient has been struggling to get around his home without assistance. Estella previously contacted [facility] regarding her concerns. NISA contacted patient's daughter, Omaira, and reintroduced herself and role as [facility] Hatchery Manager. NISA reviewed the conversation with patient, explaining patient was agreeing to go to a SNF, specifically [facility] in [place], [place] for 30 days. Patient's daughter explained the facility is aware of patient's interest and they were going to patient's PCP today to continue to discuss getting patient to SNF, however, patient's daughter reported he was brought to the ED instead as he was struggling with moving his legs. Patient's daughter in agreement with the plan. SW explained referral process and that the unit SW would be working with her and the patient for discharge planning. SW to update patient's daughter when patient is admitted. SW updated patient regarding the conversation with patient's daughter. Patient voiced an understanding and reported his pain was better. Patient then requested the lights be turned down, SW assisted. No other needs at this time, however, SW remains available if needs arise. Plan: SNF, [facility], when medically ready Radha MARTINEZ, GI
[2022-08-18 17:58] LABS: Magnesium 1.9 mg/dL (1.6-2.6)
[2022-08-18 17:59] LABS: Erythrocyte Sedimentation Rate 52 mm/hr (0-20)
[2022-08-18 18:02] LABS: Phosphorus 3.5 mg/dL (2.5-4.9)
--- NOTE | 2022-08-18 18:13 | CON.PCM.OR_ITS ---
HPI Consult Data Date of Consult: 08/18/22 HPI Narrative HPI Narrative: THIERRY ZELAYA, is a 82 M who presents for right knee swelling. The patient has a 1 day history of this although they do have some difficulties communicating due to the history of laryngeal cancer. Apparently the patient had a cortisone injection about within the last 24 hours unsure which provider that this was done by there is no notes in this electronic medical record unfortunately. Shahab adkins is not presenting with fevers drainage or redness or warmth but does have swelling of the knee chronically. I was asked by Dr. Sellers to see the patient today about 30 minutes ago. [facility] [place] Medical History (Updated 08/18/22 @ 18:18 by Nav Suggs MD) Abdominal aortic aneurysm (AAA) Acute on chronic diastolic (congestive) heart failure (12/06/19) Alcohol dependence Anxiety and depression Watkins's cyst of knee Bilateral carotid artery stenosis BPH (benign prostatic hyperplasia) Carotid artery bruit Chronic atrial fibrillation Chronic right shoulder pain Claudication COPD (chronic obstructive pulmonary disease) Cough Dehydration Erectile dysfunction Essential hypertension Frequent falls Gout History of laryngeal cancer History of left heart catheterization (05/2004) History of myocardial infarction History of nephrolithiasis HLD (hyperlipidemia) Hyperkalemia Hypertensive emergency (12/06/19) Hypomagnesemia Hyponatremia Insomnia MSSA (methicillin susceptible Staphylococcus aureus) infection Near syncope Nonobstructive atherosclerosis of coronary artery Panlobular emphysema Peripheral vascular occlusive disease Secondary pulmonary arterial hypertension SOB (shortness of breath) Thrombocytopenia Vitreous hemorrhage of right eye Home Medications albuterol sulfate 90 mcg/actuation aerosol inhaler 2 puff inhalation Q4H PRN Sob &/Or Wheezing 08/18/16 [History Last Taken 12/05/19] wnlgshpa-qdm-qattr acid 300 mcg-lycopene 600 mcg-lutein 300 mcg tablet 1 ea PO DAILY SUPPLEMENT 08/18/16 [History Last Taken 12/06/19] acetaminophen 500 mg tablet 500 mg PO Q6H PRN PRN Pain Score 1-5/10 #20 tabs 11/23/19 [Rx Last Taken 11/28/19] albuterol sulfate 2.5 mg/3 mL (0.083 %) solution for nebulization 2.5 mg inhalation Q4H PRN Sob &/Or Wheezing 11/27/19 [History Last Taken 12/06/19] atorvastatin 80 mg tablet 80 mg PO QHS heart 11/27/19 [History Last Taken 12/06/19] thiamine HCl (vitamin B1) 100 mg tablet 100 mg PO BID SUPPLEMENT 11/27/19 [History Last Taken 12/06/19] vitamins A,C,G-leca-fsznpf 4,296 mcg-226 mg-90 mg capsule 1 cap PO BID SUPPLEMENT 11/27/19 [History Last Taken 12/06/19] aspirin 81 mg tablet,delayed release 81 mg PO DAILY HEART HEALTH 11/29/19 [History Last Taken 12/06/19] erythromycin 5 mg/gram (0.5 %) eye ointment 1 applic RIGHT EYE [facility] eye health 11/29/19 [History Last Taken 11/28/19] ofloxacin 0.3 % eye drops 1 drp RIGHT EYE 4X/DAY infection 11/29/19 [History Last Taken 11/29/19] losartan 50 mg tablet 50 mg PO BID #60 tabs 12/01/19 [Rx Last Taken 12/06/19] prednisolone acetate (PF) 1 % eye drops,suspension 1 drop OP 4X/DAY cataract 12/07/19 [History Last Taken Unknown] amlodipine 10 mg tablet 10 mg PO DAILY #30 tabs 12/08/19 [Rx Last Taken Unknown] carvedilol 3.125 mg tablet 3.125 mg PO BID #60 tabs 12/08/19 [Rx Last Taken Unknown] furosemide 40 mg tablet 40 mg PO DAILY #30 tabs 12/08/19 [Rx Last Taken Unknown] hydralazine 25 mg tablet 25 mg PO TID #90 tabs 12/08/19 [Rx Last Taken Unknown] menthol 0.44 %-zinc oxide 20.6 % topical ointment 1 applic topical TID redness 12/08/19 [History Last Taken Unknown] amoxicillin 875 mg-potassium clavulanate 125 mg tablet (Augmentin) 1 tab PO BID 7 days #14 tabs 04/17/21 [Rx Last Taken Unknown] cephalexin 500 mg capsule 500 mg PO Q6 #40 caps 03/21/22 [Rx Last Taken Unknown] docusate sodium 100 mg capsule (Colace) 100 mg PO BID #20 caps 06/26/22 [Rx Last Taken Unknown] polyethylene glycol 3350 17 gram oral powder packet (Miralax) 17 g PO DAILY #100 ea 06/29/22 [Rx Last Taken Unknown] Allergy/AdvReac Type Severity Reaction Status Date / Time iodine Allergy Intermediate Unknown Verified 08/18/22 14:24 Family History Father , 67 Cancer lung Sister , 59 Myocardial infarction Mother , 58 Cancer Pulmonary embolus Brother Cancer throat Surgical History (Updated 08/18/22 @ 17:[address] Florence Sellers MD) History of abdominal aortic aneurysm repair (06/20/04) History of appendectomy History of tracheostomy Social History (Updated 08/18/22 @ 17:[address] Florence Sellers MD) household members: none Smoking Status: Former smoker alcohol intake: former details: Current 08/18/22 admission notes 2 weeks sobriety, prior heavy vodka daily. substance use type: does not use Vital Signs Vital Signs Vital Signs: 08/18/22 14:16 08/18/22 14:26 08/18/22 16:18 Temperature 97.4 F L Temperature Source Temporal Pulse Rate 63 65 Respiratory Rate 28 H 24 H Respiratory Effort Short of Breath Labored Respiratory Pattern Tachypnea Blood Pressure 133/74 H 160/84 H Blood Pressure Mean 93 109 Pulse Ox 98 90 Oxygen Delivery Method Room Air Room Air 08/18/22 16:44 08/18/22 17:13 08/18/22 17:44 Temperature 99 F Temperature Source Temporal Pulse Rate 62 62 62 Respiratory Rate 23 H 21 H 25 H Respiratory Effort Respiratory Pattern Blood Pressure 164/85 H 153/62 H 132/63 H Blood Pressure Mean 111 92 86 Pulse Ox 90 92 91 Oxygen Delivery Method Room Air 08/18/22 17:56 08/18/22 17:56 Temperature Temperature Source Pulse Rate Respiratory Rate Respiratory Effort Respiratory Pattern Blood Pressure Blood Pressure Mean Pulse Ox 91 89 Oxygen Delivery Method Room Air Room Air Weight Weight: 188 lb 0.869 oz Body Mass Index (BMI) 25.4 Physical Exam Const alert and no apparent distress HEENT normocephalic Extremity Extremity Narrative: There is a large amount of intra-articular swelling of the right knee. There is no redness trace warmth. No pain with range of motion testing but the knee does feel a tight large effusion. No active drainage. There is a bandage anterolaterally no redness or bruising about that I remove the Band-Aid. Normal neurovascular status distally able to wiggle toes dorsiflex plantarflex the foot. Calf is soft. No obvious prepatellar swelling. Mild pain with palpation about the knee diffusely. Lab / Micro Data Result Diagrams: 08/18/22 14:50 08/18/22 14:50 Labs: Laboratory Results - last 24 hr 08/18/22 14:50: WBC 14.7 H, RBC 4.20 L, Hgb 13.7, Hct 39.8 L, MCV 94.8 H, MCH 32.6 H, MCHC 34.4, RDW Std Deviation 45.1 H, RDW Coeff of [place] 13.0, Plt Count 334, MPV 10.5, Immature Gran % (Auto) 1.000 H, Neut % (Auto) 78.1 H, Lymph % (Auto) 7.3 L, [place] % (Auto) 12.2 H, Eos % (Auto) 1.0, Baso % (Auto) 0.4, Absolute Neuts (auto) 11.5 H, Absolute Lymphs (auto) 1.08, Nucleated RBC % 0, Differential Comment SCANNED, Diff Path Review May foll 08/18/22 14:50: Sodium 132 L, Potassium 4.0, Chloride 99, Carbon Dioxide 29.0, Anion Gap 4 L, BUN 28 H, Creatinine 0.99, Estim Creat Clear Calc 60.97, Est GFR (MDRD) Af Amer 93, Est GFR (MDRD) Non-Af 77, BUN/Creatinine Ratio 28.3 H, Glucose 98, Calcium 8.9, Troponin I High Sens 4 08/18/22 14:50: ESR 52 H 08/18/22 14:50: Magnesium 1.9, C-React Prot Ext Range 76.60 H 08/18/22 14:50: Phosphorus 3.5 08/18/22 16:00: Urine Color Yellow, Urine Clarity Clear, Urine pH 6.5, Ur Specific [place] 1.015, Urine Protein 500 H, Urine Glucose (UA) Normal, Urine Ketones Negative, Urine Occult Blood 10 H, Urine Nitrite Negative, Urine Bilirubin Negative, Urine Urobilinogen Normal, Ur Leukocyte Esterase Negative, Urine RBC 0 SEEN, Urine WBC 0 SEEN, Ur Squamous Epith Cells 0 SEEN, Urine Bacteria 0 SEEN, Urine Mucus 0 SEEN Radiology Impression Knee X-Ray 04/06/23 15:02 IMPRESSION: Severe tricompartmental osteoarthrosis most notably along the lateral compartment with large suprapatellar effusion. No evidence of focal fracture. Electronically Signed: Flakito Ott DO at 15:54 EDT , Chest X-Ray 08/18/22 15:22 IMPRESSION: Similar appearance compared to prior with no new focal infiltrate. Electronically Signed: Flakito Ott DO at 15:55 EDT , I agree with the knee x-rays mostly lateral compartment narrowing. Large effusion. Assessment & Plan Assessment/Plan (1) Effusion, right knee: PLAN: 82-year-old man with acute right knee swelling following an intra- articular cortisone injection. I favor this to be more in line with gout or pseudogout or acute flare reaction from the injection and lower on the differential certainly would be an acute septic knee. Patient's lack of fever redness warmth or drainage with very mildly elevated white count speaks against an acute septic knee as well as the physical exam. That being said I think it is beltran in this case to perform a knee aspiration send the fluid to the lab. We discussed the pros cons risk benefits go ahead with that I did a 3 person verbal consent with the nursing staff on today (vision problems in patient). The patient wished to go ahead with that. I perform this aspirated 120 cc of straw- colored fluid and sent this to the lab for cell count Gram stain culture and sensitivities glucose and crystals and will follow this patient up as they are being admitted by Dr. Sellers to the [facility] as well. For now placed a bandage on the knee range of motion and weightbearing as tolerated. Procedure note: Discussed pros cons risk benefits right knee aspiration. Patient wished to go ahead signs informed verbally with the nursing staff. P ossible risks include but not limited to infection pain stiffness bleeding damage to surrounding structures and other risks. Right knee marked with surgical marker superior lateral aspect. I prepped the skin with chlorhexidine swab allowed this to thoroughly dry. Used sterile no touch technique. I injected 3 cc of 1% lidocaine into the subcutaneous tissue. Next I used a 50 cc syringe with an 18-gauge needle to aspirate 45 cc of straw-colored fluid sent this to the lab. I then used 30 cc syringe to subsequently aspirate up to 120 cc total of straw-colored fluid no obvious pus purulent material or foul smell. Needle withdrawn pressure applied followed by a bandage.
--- NOTE | 2022-08-18 18:17 | ED.RN ---
THIS RN AT BEDSIDE WITH DR. MÁRQUEZ FOR JOINT ASPIRATION. SUPPLIES GATHERED. PT GIVEN EXPLANATION PER MD AND VERBALIZES CONSENT. CONSENT SIGNED. TIME OUT. ASPIRATION SUCCESSFUL. PT TOLERATED WELL. REPORTS RELIEF OF KNEE PAIN.
[2022-08-18] MEDS: Lidocaine 2% (10 ml mdv) 10 ML Vial 4 ML INFILT (18:19)
[2022-08-18 18:20] LABS: Pathologist Comment May follow
[2022-08-18 18:51] LABS: Synovial Fld Mononuclear WBC # 3.237 10^3/ul; Synovial Fld Mononuclear WBC % 8.9 %; Synovial Fld Polynuclear WBC % 91.1 %
[2022-08-18 19:05] LABS: RBC /Synovial Fluid 0.002 10^6/uL (0)
[2022-08-18 19:17] LABS: AUTO B FLUID DILUENT BKGD CT WBC <0.1 RBC <0.01 (W<.1,R<.01)
[2022-08-18 19:18] LABS: CRYSTALS, BODY FLUID MONOSODIUM URATE
[2022-08-18 19:19] LABS: Source- Body Fluid SYNOVIAL
[2022-08-18 19:20] LABS: Color / Synovial Fluid Yellow (Pale Yellow); Viscosity / Synovial Fluid Sl. Viscous (HIGH)
[2022-08-18 19:21] LABS: Appearance /Synovial Fluid Cloudy (CLEAR)
[2022-08-18 19:33] LABS: Source / Synovial Fluid RIGHT KNEE
[2022-08-18 19:34] LABS: Lymph 0 %; Monocyte /Synovial Fluid 3 %; Neutrophil 97 % (0-25); Other Cell /Synovial Fluid 0 %; Plasma Cell /Synovial Fluid 0 %
[2022-08-18 19:35] LABS: Body Fluid QC Type(s) BF2Q,BF3Q
[2022-08-18 20:01] LABS: Procalcitonin 0.06 ng/mL (0.00-0.09)
[2022-08-18] MEDS: Multivitamin (Healthy Eyes) Capsule 1 CAP PO (20:57)
[2022-08-18] MEDS: Carvedilol 3.125 MG TABLET PO (20:57)
[2022-08-18] MEDS: oxyCODONE 5 MG Tablet PO (20:57)
[2022-08-18] MEDS: Atorvastatin Calcium 80 MG Tablet PO (20:57)
[2022-08-18] MEDS: Acetaminophen 325 MG Tablet 650 MG PO (20:58)
[2022-08-18] MEDS: traZODone 100 MG Tablet 50 MG PO (20:58)
[2022-08-18] MEDS: Losartan Potassium 50 MG Tablet PO (20:58)
[2022-08-18] MEDS: hydrALAZINE 25 MG Tablet PO (20:59)
[2022-08-19] VITALS (9 sets, daily range): BP systolic 129–144; BP diastolic 49–56; PULSE 48–90; RESP 16–22; TEMP 35.9–36.5; O2SAT 93–98; BMI 25.4
[2022-08-19] MEDS: oxyCODONE 5 MG Tablet PO (05:40)
[2022-08-19] MEDS: Menthol/Lanolin/Calamine/Znox 113 GM Tube 1 APPLIC TOPICAL ×3 (05:40→22:19)
[2022-08-19] MEDS: Acetaminophen 325 MG Tablet 650 MG PO ×2 (05:41→22:21)
[2022-08-19] MEDS: hydrALAZINE 25 MG Tablet PO ×2 (05:57→14:25)
[2022-08-19 06:30] LABS: Absolute Lymphocyte Count 1.35 X10^3/uL (0.83-4.51); Absolute Neutrophil Count 8.6 X10^3/uL (2.0-7.7); Basophil# 0.06 X10^3/uL; Basophil% 0.5 % (0-1); Eosinophil# 0.12 X10^3/uL; Hematocrit 36.2 % (40-54); Hemoglobin 12.1 g/dL (13.0-16.5); Lymphocyte # 1.35 X10^3/ul (0.83-4.51); Lymphocyte % 11.6 % (19-41); Mean Corp Hgb Conc 33.4 g/dL (32-36); Mean Corpuscular Hgb 32.1 pg (27.0-32.0); Mean Platelet Vol. 10.3 fl (6.2-12.0); Monocyte# 1.39 X10^3/uL; Monocyte% 11.9 % (0-10); NRBC Flagged by Analyzer 0 % (0-5); Neutrophil # 8.63 X10^3/uL (2.7-7.7); Neutrophil % 73.9 % (47-70); Platelet Count 292 K/mm3 (150-450); RBC Distribution Width CV 13.1 % (11.6-14.6); RBC Distribution Width SD 46.5 fl (35.1-43.9); Red Blood Count 3.77 M/mm3 (4.6-6.2); White Blood Count 11.7 K/mm3 (4.4-11.0)
[2022-08-19] MEDS: Budesonide Respules 0.5 MG/2 ML AMPUL.NEB. INHALATION ×2 (06:47→18:56)
[2022-08-19 06:50] LABS: ALB/GLOB Ratio 0.4 RATIO (0.9-2.4); AST(SGOT) 18 U/L (15-37); Alanine Aminotransfer ALT/SGPT 17 U/L (16-61); Albumin, Serum 1.8 g/dL (3.2-5.0); Alkaline Phosphatase 92 U/L (45-117); Anion Gap 4 (5-15); BUN 33 mg/dL (7-18); BUN/Creat Ratio 29.2 RATIO (10-20); Calcium,Total 8.4 mg/dL (8.5-10.1); Chloride 101 mmol/L (98-107); Creatinine, Serum 1.13 mg/dL (0.70-1.30); EST Glomerular Filtration Rate 66 mL/min (>60); Est Glom Filt Rate - Afr Amer 79 mL/min (>60); Estimated Creatinine Clearance 53.41 ml/min; Globulin 4.1 g/dL (2.2-4.2); Glucose 102 mg/dL (74-106); Potassium 4.4 mmol/L (3.5-5.1); Protein, Total 5.9 g/dL (6.4-8.2); Sodium Level 133 mmol/L (136-145)
--- NOTE | 2022-08-19 07:34 | PCM.PN.HOSP ---
Reason for Visit Reason for Visit: Diagnoses Effusion, right knee (08/18/22) Subjective Subjective Patient is an 82-year-old gentleman with multiple comorbidities brought to the emergency department with progressive generalized weakness and right knee pain. An assessment of adult failure to thrive made admitted to regular nursing floor for further management Objective Data Objective Data Vital Signs: Vital Signs Temp Pulse Resp BP Pulse Ox O2 Del Method O2 Flow Rate 97.7 F L 53 L 16 144/51 H 93 Trach Collar 6 08/19/22 05:58 08/19/22 06:47 08/19/22 06:47 08/19/22 05:58 08/19/22 06:47 08/19/22 06:47 08/19/22 06:47 FiO2 30 08/18/22 18:55 Oxygen Flow Rate (L/min) 6 Oxygen Delivery Method Trach Collar Weight: 85.2 kg Body Mass Index (BMI) 25.4 Intake & Output: Intake and Output for Last 24 Hours 08/17/22 08/18/22 08/19/22 23:59 23:59 23:59 Intake Total 350 / 350 120 / 120 Output Total 300 / 300 150 / 150 Balance 50 / 50 -30 / -30 Lab / Micro Data Result Diagrams: 08/19/22 05:54 08/19/22 05:54 Labs: Laboratory Results - last 24 hr 08/18/22 14:50: WBC 14.7 H, RBC 4.20 L, Hgb 13.7, Hct 39.8 L, MCV 94.8 H, MCH 32.6 H, MCHC 34.4, RDW Std Deviation 45.1 H, RDW Coeff of [place] 13.0, Plt Count 334, MPV 10.5, Immature Gran % (Auto) 1.000 H, Neut % (Auto) 78.1 H, Lymph % (Auto) 7.3 L, [place] % (Auto) 12.2 H, Eos % (Auto) 1.0, Baso % (Auto) 0.4, Absolute Neuts (auto) 11.5 H, Absolute Lymphs (auto) 1.08, Nucleated RBC % 0, Differential Comment SCANNED, Diff Path Review September08/18/22 14:50: Sodium 132 L, Potassium 4.0, Chloride 99, Carbon Dioxide 29.0, Anion Gap 4 L, BUN 28 H, Creatinine 0.99, Estim Creat Clear Calc 60.97, Est GFR (MDRD) Af Amer 93, Est GFR (MDRD) Non-Af 77, BUN/Creatinine Ratio 28.3 H, Glucose 98, Calcium 8.9, Troponin I High Sens 4 08/18/22 14:50: ESR 52 H 08/18/22 14:50: Magnesium 1.9, C-React Prot Ext Range 76.60 H 08/18/22 14:50: Phosphorus 3.5 08/18/22 16:00: Urine Color Yellow, Urine Clarity Clear, Urine pH 6.5, Ur Specific [place] 1.015, Urine Protein 500 H, Urine Glucose (UA) Normal, Urine Ketones Negative, Urine Occult Blood 10 H, Urine Nitrite Negative, Urine Bilirubin Negative, Urine Urobilinogen Normal, Ur Leukocyte Esterase Negative, Urine RBC 0 SEEN, Urine WBC 0 SEEN, Ur Squamous Epith Cells 0 SEEN, Urine Bacteria 0 SEEN, Urine Mucus 0 SEEN 08/18/22 17:35: Procalcitonin 0.06 08/18/22 18:15: Fluid Crystals MONOSODIUM URATE, Fluid Crystal Source SYNOVIAL, Fl Crystal Path Review Will follow, Synovial Source RIGHT KNEE, Synovial Color Yellow, Synovial Appearance Cloudy, Synovial Viscosity Sl. Viscous, Synovial WBC 33.1100 H, Synovial RBC 0.002 H, Synovial Tot Cell Ct 33.2300 H, Synov Polynuclear WBCs 32.965, Synov Mononuclear WBCs 3.237, Synovial Neutrophils 97 H, Synovial Lymphocytes 0, Synovial Monocytes 3, Synovial Plasma Cells 0, Synovial Other Cells 0, Synovial Polynuclear % 91.1, Synovial Mononuclear % 8.9, Synovial Path Comment May follow 08/19/22 05:54: WBC 11.7 H, RBC 3.77 L, Hgb 12.1 L, Hct 36.2 L, MCV 96.0 H, MCH 32.1 H, MCHC 33.4, RDW Std Deviation 46.5 H, RDW Coeff of [place] 13.1, Plt Count 292, MPV 10.3, Immature Gran % (Auto) 1.100 H, Neut % (Auto) 73.9 H, Lymph % (Auto) 11.6 L, [place] % (Auto) 11.9 H, Eos % (Auto) 1.0, Baso % (Auto) 0.5, Absolute Neuts (auto) 8.6 H, Absolute Lymphs (auto) 1.35, Nucleated RBC % 0 08/19/22 05:54: Sodium 133 L, Potassium 4.4, Chloride 101, Carbon Dioxide 28.0, Anion Gap 4 L, BUN 33 H, Creatinine 1.13, Estim Creat Clear Calc 53.41, Est GFR (MDRD) Af Amer 79, Est GFR (MDRD) Non-Af 66, BUN/Creatinine Ratio 29.2 H, Glucose 102, Calcium 8.4 L, Total Bilirubin 0.70, AST 18, ALT 17, Alkaline Phosphatase 92, Total Protein 5.9 L, Albumin 1.8 L, Globulin 4.1, Albumin/Globulin Ratio 0.4 L Radiography Diagnostic Testing: Radiology Impression Knee X-Ray 08/18/22 15:02 IMPRESSION: Severe tricompartmental osteoarthrosis most notably along the lateral compartment with large suprapatellar effusion. No evidence of focal fracture. Electronically Signed: Flakito Ott DO at 15:54 EDT Reading Location ID and State: [facility] / [place] , Service support , Chest X-Ray 08/18/22 15:22 IMPRESSION: Similar appearance compared to prior with no new focal infiltrate. Electronically Signed: Flakito Ott DO at 15:55 EDT , Physical Exam Narrative GENERAL: cooperative HEENT: Atraumatic; normocephalic EYES; opacification of the left eye NECK; tracheostomy in place RESPIRATORY: Diminished to auscultation CARDIOVASCULAR:? Regular S1 S2, GI:? soft, normoactive bowel sounds, : No Renal angle tenderness; EXTREMITIES:? No edema, no clubbing, MUSCULOSKELETAL:? no muscle wasting NEURO:? Awake;? no lateralizing signs. SKIN:? No Rash PSYCH; Flat? affect Assessment & Plan Assessment/Plan (1) Effusion of right knee: PLAN: Plan Patient is an 82-year-old gentleman with multiple comorbidities brought to the emergency department with progressive generalized weakness and right knee pain. An assessment of adult failure to thrive made admitted to regular nursing floor for further management 1. Physical deconditioning - Requested for PT OT eval and perinatal social worker to assist with discharge planning 2. Right knee pain ? Consistent with gout patient underwent knee aspiration which demonstrated shows positive monosodium urate crystals, cell count 33K, mostly neutrophils. Orthopedic surgery recommended him to intermittent 3. Hypertension - Blood pressure controlled, home medications continued with dose adjustment as needed 4.? Paroxysmal A-fib ? Rate controlled on beta-blockers patient not on systemic anticoagulation due to significant risk for falls 5.? History of laryngeal CA ? 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 History of AAA ? Status post repair 7.? COPD ? Currently not in exacerbation did continue patient bronchodilator treatment regimen 8.? Dyslipidemia -Patient is on statin therapy, continued at home dose 0.? DVT prophylaxis - On enoxaparin Time spent in the patient's overall evaluation,decision-making process, review of diagnostic data, adjustment of management, discussion with other providers, nursing nursing and ancillary staff involved in patient's care documentation, 57 minutes Charges/Coding Visit Charges Inpatient E&M: 79105 [facility] L3
--- NOTE | 2022-08-19 08:06 | PCM.PN.ORT ---
Subjective Subjective FU right knee aspiration Objective Data Objective Data shows positive monosodium urate crystals, cell count 33K, mostly neutrophils Vital Signs: Vital Signs Temp Pulse Resp BP Pulse Ox O2 Del Method O2 Flow Rate 97.7 F L 53 L 16 144/51 H 93 Trach Collar 6 08/19/22 05:58 08/19/22 06:47 08/19/22 06:47 08/19/22 05:58 08/19/22 06:47 08/19/22 06:47 08/19/22 06:47 FiO2 30 08/18/22 18:55 Oxygen Flow Rate (L/min) 6 Oxygen Delivery Method Trach Collar Weight: 187 lb 13.341 oz Body Mass Index (BMI) 25.4 Intake & Output: Intake and Output for Last 24 Hours 08/17/22 08/18/22 08/19/22 23:59 23:59 23:59 Intake Total 350 / 350 120 / 120 Output Total 300 / 300 150 / 150 Balance 50 / 50 -30 / -30 Lab / Micro Data Result Diagrams: 08/19/22 05:54 08/19/22 05:54 Labs: Laboratory Results - last 24 hr 08/18/22 14:50: WBC 14.7 H, RBC 4.20 L, Hgb 13.7, Hct 39.8 L, MCV 94.8 H, MCH 32.6 H, MCHC 34.4, RDW Std Deviation 45.1 H, RDW Coeff of [place] 13.0, Plt Count 334, MPV 10.5, Immature Gran % (Auto) 1.000 H, Neut % (Auto) 78.1 H, Lymph % (Auto) 7.3 L, [place] % (Auto) 12.2 H, Eos % (Auto) 1.0, Baso % (Auto) 0.4, Absolute Neuts (auto) 11.5 H, Absolute Lymphs (auto) 1.08, Nucleated RBC % 0, Differential Comment SCANNED, Diff Path Review September08/18/22 14:50: Sodium 132 L, Potassium 4.0, Chloride 99, Carbon Dioxide 29.0, Anion Gap 4 L, BUN 28 H, Creatinine 0.99, Estim Creat Clear Calc 60.97, Est GFR (MDRD) Af Amer 93, Est GFR (MDRD) Non-Af 77, BUN/Creatinine Ratio 28.3 H, Glucose 98, Calcium 8.9, Troponin I High Sens 4 08/18/22 14:50: ESR 52 H 08/18/22 14:50: Magnesium 1.9, C-React Prot Ext Range 76.60 H 08/18/22 14:50: Phosphorus 3.5 08/18/22 16:00: Urine Color Yellow, Urine Clarity Clear, Urine pH 6.5, Ur Specific [place] 1.015, Urine Protein 500 H, Urine Glucose (UA) Normal, Urine Ketones Negative, Urine Occult Blood 10 H, Urine Nitrite Negative, Urine Bilirubin Negative, Urine Urobilinogen Normal, Ur Leukocyte Esterase Negative, Urine RBC 0 SEEN, Urine WBC 0 SEEN, Ur Squamous Epith Cells 0 SEEN, Urine Bacteria 0 SEEN, Urine Mucus 0 SEEN 08/18/22 17:35: Procalcitonin 0.06 08/18/22 18:15: Fluid Crystals MONOSODIUM URATE, Fluid Crystal Source SYNOVIAL, Fl Crystal Path Review Will follow, Synovial Source RIGHT KNEE, Synovial Color Yellow, Synovial Appearance Cloudy, Synovial Viscosity Sl. Viscous, Synovial WBC 33.1100 H, Synovial RBC 0.002 H, Synovial Tot Cell Ct 33.2300 H, Synov Polynuclear WBCs 32.965, Synov Mononuclear WBCs 3.237, Synovial Neutrophils 97 H, Synovial Lymphocytes 0, Synovial Monocytes 3, Synovial Plasma Cells 0, Synovial Other Cells 0, Synovial Polynuclear % 91.1, Synovial Mononuclear % 8.9, Synovial Path Comment May follow 08/19/22 05:54: WBC 11.7 H, RBC 3.77 L, Hgb 12.1 L, Hct 36.2 L, MCV 96.0 H, MCH 32.1 H, MCHC 33.4, RDW Std Deviation 46.5 H, RDW Coeff of [place] 13.1, Plt Count 292, MPV 10.3, Immature Gran % (Auto) 1.100 H, Neut % (Auto) 73.9 H, Lymph % (Auto) 11.6 L, [place] % (Auto) 11.9 H, Eos % (Auto) 1.0, Baso % (Auto) 0.5, Absolute Neuts (auto) 8.6 H, Absolute Lymphs (auto) 1.35, Nucleated RBC % 0 08/19/22 05:54: Sodium 133 L, Potassium 4.4, Chloride 101, Carbon Dioxide 28.0, Anion Gap 4 L, BUN 33 H, Creatinine 1.13, Estim Creat Clear Calc 53.41, Est GFR (MDRD) Af Amer 79, Est GFR (MDRD) Non-Af 66, BUN/Creatinine Ratio 29.2 H, Glucose 102, Calcium 8.4 L, Total Bilirubin 0.70, AST 18, ALT 17, Alkaline Phosphatase 92, Total Protein 5.9 L, Albumin 1.8 L, Globulin 4.1, Albumin/Globulin Ratio 0.4 L Radiography Diagnostic Testing: Radiology Impression Knee X-Ray 08/18/22 15:02 IMPRESSION: Severe tricompartmental osteoarthrosis most notably along the lateral compartment with large suprapatellar effusion. No evidence of focal fracture. Electronically Signed: Flakito Ott DO at 15:54 EDT , Chest X-Ray 08/18/22 15:22 IMPRESSION: Similar appearance compared to prior with no new focal infiltrate. Electronically Signed: Flakito Ott DO at 15:55 EDT , Assessment & Plan Assessment/Plan (1) Gout of right knee: PLAN: 82M right knee aspiration consistent with gout. Would recommend indomethacin usual dose - to be ordered by hospitalist service. Will not follow while in hospital, ok to send to clinic as outpatient if needed.
[2022-08-19] MEDS: Losartan Potassium 50 MG Tablet PO (08:45)
[2022-08-19] MEDS: Polyethylene Glycol 3350 17 GM PACKET PO (08:45)
[2022-08-19] MEDS: amLODIPine 10 MG Tablet PO (08:45)
[2022-08-19] MEDS: Folic Acid 1 MG Tablet PO (08:45)
[2022-08-19] MEDS: Thiamine Hydrochloride 100 MG Tablet PO (08:45)
[2022-08-19] MEDS: Docusate Sodium 100 MG Capsule PO ×2 (08:45→21:58)
[2022-08-19] MEDS: Carvedilol 3.125 MG TABLET PO ×2 (08:45→18:04)
[2022-08-19] MEDS: Aspirin E.C. 81 MG Tablet PO (08:45)
[2022-08-19] MEDS: Furosemide 40 MG Tablet PO (08:45)
[2022-08-19] MEDS: Multivitamin (Healthy Eyes) Capsule 1 CAP PO ×2 (08:46→22:20)
[2022-08-19 09:44] LABS: Uric Acid 6.3 mg/dL (3.5-7.2)
--- NOTE | 2022-08-19 11:04 | CASEMGMT ---
Updated Ivone at [facility] that pt current plan [facility] [place]
--- NOTE | 2022-08-19 11:10 | PCM.TXEXTCAR ---
Diet Diet Order/Speech Therapy: 08/18/22 19:35 Diet: Cardiac - Heart Healthy Food consistency:: Regular Liquid Consistency:: Regular/Thin Type of Dietary Supplement:: Ensure Plus High Protein Is pt able to select menu?: No Diet Comments: BLIND PLEASE bring to desk pt is a feed Routine Orders/Code Status O2 Frequency: via Trach Collar Keep PO Greater than or Equal to (%): 90 Code Status: Full Code Wound(s) LEFT OUTER ANKLE: Wound Type: Abrasion DONAVAN FEET: Wound Type: Abrasion DONAVAN LEGS: Wound Type: Abrasion [place]AN ARMS: Wound Type: Abrasion LEFT BUTTOCK: Wound Type: Pressure Injury LEFT HEEL: Wound Type: Pressure Injury Therapies Physical Therapy: Eval and Treat Occupational Therapy: Eval and Treat Problem/Diagnosis (1) Effusion of right knee: Status: Acute Code(s): M25.461 - Effusion, right knee Plan Patient is an 82-year-old gentleman with multiple comorbidities brought to the emergency department with progressive generalized weakness and right knee pain. An assessment of adult failure to thrive made admitted to regular nursing floor for further management 1. Physical deconditioning - Requested for PT OT eval and child welfare social worker to assist with discharge planning 2. Right knee pain ? Consistent with gout patient underwent knee aspiration which demonstrated shows positive monosodium urate crystals, cell count 33K, mostly neutrophils. Orthopedic surgery recommended him to intermittent 3. Hypertension - Blood pressure controlled, home medications continued with dose adjustment as needed 4.? Paroxysmal A-fib ? Rate controlled on beta-blockers patient not on systemic anticoagulation due to significant risk for falls 5.? History of laryngeal CA ? 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 History of AAA ? Status post repair 7.? COPD ? Currently not in exacerbation did continue patient bronchodilator treatment regimen 8.? Dyslipidemia -Patient is on statin therapy, continued at home dose 0.? DVT prophylaxis - On enoxaparin Time spent in the patient's overall evaluation,decision-making process, review of diagnostic data, adjustment of management, discussion with other providers, nursing nursing and ancillary staff involved in patient's care documentation, 57 minutes Allergies/Procedures Done in Hospital Allergies iodine Allergy (Intermediate, Verified 08/18/22 19:30) Unknown tremors Type of Care/Length of Stay Estimated LOS: Convalescent Care Less Than 30 days Type of Care Needed: Skilled Rehab Potential: Good Prognosis: Good Additional Orders/Day of Discharge Day of Discharge: 08/19/22 Discharge Plan Admission Admit Date/Time: 08/18/22 17:06 Attending Provider: Jimmy Medina Primary Care Provider: Maninder Malcolm Consulting Providers: Nav Suggs ; Florence Sellers Discharge Orders/Prescriptions Prescriptions: New acetaminophen 325 mg Tablet 650 mg PO Q4H PRN PRN (Reason: Fever, pain 1-02/21) Qty: 0 0RF loperamide 2 mg Capsule 2 mg PO Q4H PRN PRN (Reason: LOOSE STOOLS) Qty: 0 0RF thiamine HCl (vitamin B1) [Vitamin B-1] 100 mg Tablet 100 mg PO DAILYCM Qty: 0 0RF carvedilol 3.125 mg Tablet 3.125 mg PO BIDCM Qty: 0 0RF pantoprazole 40 mg Tablet,Delayed Release (Dr/Ec) 40 mg PO DAILY Qty: 0 0RF indomethacin 25 mg Capsule 25 mg PO TIDCM Qty: 0 0RF budesonide 0.5 mg/2 mL Suspension For Nebulization 0.5 mg inhalation BID.RT Qty: 0 0RF folic acid 1 mg Tablet 1 mg PO DAILY@0800 Qty: 0 0RF dicyclomine 10 mg Capsule 20 mg PO Q6H PRN PRN (Reason: abdominal discomfort) Qty: 0 0RF alum-mag hydroxide-simeth [Mag-Al Plus Extra Strength] 400-400-40 mg/5 mL Suspension 30 ml PO Q6H PRN PRN (Reason: Gastric Burning) Qty: 0 0RF hydroxyzine pamoate 25 mg Capsule 50 mg PO Q4H PRN PRN (Reason: mild anxiety) Qty: 0 0RF Healthy Eyes 300 mcg-200 mg-27 mg-2 mg Tablet 1 cap PO BID Qty: 0 0RF menthol-zinc oxide [Calmoseptine] 0.44-20.6 % Ointment 1 applic topical BID Qty: 0 0RF Protocol: *Topical Application Instructions APPLICATION INSTRUCTIONS: BUTTOCKS allopurinol 100 mg tablet 100 mg PO DAILY Qty: 1 0RF Continued atorvastatin 80 mg tablet 80 mg PO QHS Label Comments: TAKE 1 TABLET BY MOUTH EVERY DAY albuterol sulfate 18 GM HFA aerosol inhaler 2 puff inhalation Q4H PRN (Reason: Sob &/Or Wheezing) Label Comments: COPD losartan 50 MG tablet 50 mg PO BID Qty: 60 0RF hydralazine 25 MG tablet 25 mg PO TID Qty: 90 0RF amlodipine 10 MG tablet 10 mg PO DAILY Qty: 30 0RF furosemide 40 MG tablet 40 mg PO DAILY Qty: 30 0RF menthol-zinc oxide 1 APPLIC ointment 1 applic topical TID Protocol: *Topical Application Instructions APPLICATION INSTRUCTIONS: Apply to affected area of buttocks docusate sodium [Colace] 100 mg capsule 100 mg PO BID Qty: 20 0RF polyethylene glycol 3350 [Miralax] 17 gram powder in packet 17 g PO DAILY Qty: 100 1RF multivitamin Tablet 1 tab PO DAILY bupropion HCl 75 mg tablet 75 mg PO BID Label Comments: TAKE 1 TABLET BY MOUTH TWICE A DAY Discontinued albuterol sulfate 2.5 mg /3 mL (0.083 %) solution for nebulization 2.5 mg INHALATION Q4H PRN (Reason: Sob &/Or Wheezing) Label Comments: USE 3 ML VIA NEBULIZER EVERY 4 HOURS NEEDED Referrals / Follow Up: Maninder Malcolm PA [Primary Care Provider] - Within 2 Weeks Disposition Disposition (needs filled in before D/C Order can be placed): [facility] Facility
--- NOTE | 2022-08-19 11:42 | PCM.DC.SUM ---
Providers Date of Admission: 08/18/22 Date of Discharge: 08/19/22 Primary Care Physician: RONNI Linton Consultations 08/18/22 19:34 Consult: Orthopedics Routine Consulting Provider: Nav Suggs Reason for Consult: Intractable R knee pain EMERGENT Consult: No MD Notified: Yes Date Notified: 08/18/22 Time Notified: 17:07 Method of Notification: Verbal Reason For Visit: R KNEE PAIN, ADULT FTT Diagnosis Discharge Diagnosis (1) Effusion of right knee: Status: Acute Code(s): M25.461 - Effusion, right knee Plan Patient is an 82-year-old gentleman with multiple comorbidities brought to the emergency department with progressive generalized weakness and right knee pain. An assessment of adult failure to thrive made admitted to regular nursing floor for further management 1. Physical deconditioning - Requested for PT OT eval and healthcare social worker to assist with discharge planning 2. Right knee pain ? Consistent with gout patient underwent knee aspiration which demonstrated shows positive monosodium urate crystals, cell count 33K, mostly neutrophils. Orthopedic surgery recommended him to intermittent 3. Hypertension - Blood pressure controlled, home medications continued with dose adjustment as needed 4.? Paroxysmal A-fib ? Rate controlled on beta-blockers patient not on systemic anticoagulation due to significant risk for falls 5.? History of laryngeal CA ? 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 History of AAA ? Status post repair 7.? COPD ? Currently not in exacerbation did continue patient bronchodilator treatment regimen 8.? Dyslipidemia -Patient is on statin therapy, continued at home dose 0.? DVT prophylaxis - On enoxaparin Time spent in the patient's overall evaluation,decision-making process, review of diagnostic data, adjustment of management, discussion with other providers, nursing nursing and ancillary staff involved in patient's care documentation, 57 minutes Medications at Discharge Home Medications albuterol sulfate 90 mcg/actuation aerosol inhaler 2 puff inhalation Q4H PRN Sob &/Or Wheezing 08/18/16 atorvastatin 80 mg tablet 80 mg PO QHS heart 11/27/19 losartan 50 mg tablet 50 mg PO BID #60 tabs 12/01/19 amlodipine 10 mg tablet 10 mg PO DAILY #30 tabs 12/08/19 furosemide 40 mg tablet 40 mg PO DAILY #30 tabs 12/08/19 hydralazine 25 mg tablet 25 mg PO TID #90 tabs 12/08/19 menthol 0.44 %-zinc oxide 20.6 % topical ointment 1 applic topical TID redness 12/08/19 docusate sodium 100 mg capsule (Colace) 100 mg PO BID #20 caps 06/26/22 polyethylene glycol 3350 17 gram oral powder packet (Miralax) 17 g PO DAILY #100 ea 06/29/22 bupropion HCl 75 mg tablet 75 mg PO BID DEPRESSION 08/18/22 multivitamin 1 tab PO DAILY REPLACEMENT 08/18/22 acetaminophen 325 mg tablet 650 mg PO Q4H PRN PRN Fever, pain 1-02/21 #0 tabs 08/19/22 allopurinol 100 mg tablet 100 mg PO DAILY #1 TAB 08/19/22 aluminum-mag hydroxide-simethicone 400 mg-400 mg-40 mg/5 mL oral susp (Mag-Al Plus Extra Strength) 30 ml PO Q6H PRN PRN Gastric Burning #0 mL 08/19/22 budesonide 0.5 mg/2 mL suspension for nebulization 0.5 mg (2 mL) inhalation BID.RT #0 mL 08/19/22 carvedilol 3.125 mg tablet 3.125 mg PO BIDCM #0 tabs 08/19/22 dicyclomine 10 mg capsule 20 mg PO Q6H PRN PRN abdominal discomfort #0 caps 08/19/22 folic acid 1 mg tablet 1 mg PO DAILY@0800 #0 tabs 08/19/22 hydroxyzine pamoate 25 mg capsule 50 mg PO Q4H PRN PRN mild anxiety #0 caps 08/19/22 indomethacin 25 mg capsule 25 mg PO TIDCM #0 caps 08/19/22 loperamide 2 mg capsule 2 mg PO Q4H PRN PRN LOOSE STOOLS #0 caps 08/19/22 menthol 0.44 %-zinc oxide 20.6 % topical ointment (Calmoseptine) 1 applic topical BID #0 grams 08/19/22 pantoprazole 40 mg tablet,delayed release 40 mg PO DAILY #0 tabs 08/19/22 thiamine HCl (vitamin B1) 100 mg tablet (Vitamin B-1) 100 mg PO DAILYCM #0 tabs 08/19/22 vit A 300 mcg-C 200 mg-E 27 mg-lutein 2 mg and minerals tablet (Healthy Eyes) 1 cap PO BID #0 tabs 08/19/22 Hospital Course Summary of Care Provided Minutes Spent on Discharge: 57 Physical Exam Narrative GENERAL: cooperative HEENT: Atraumatic; normocephalic EYES; opacification of the left eye NECK; tracheostomy in place RESPIRATORY: Diminished to auscultation CARDIOVASCULAR:? Regular S1 S2, GI:? soft, normoactive bowel sounds, : No Renal angle tenderness; EXTREMITIES:? No edema, no clubbing, MUSCULOSKELETAL:? no muscle wasting NEURO:? Awake;? no lateralizing signs. SKIN:? No Rash PSYCH; Flat? affect Weight / BMI Weight Weight: 85.2 kg Body Mass Index (BMI) 25.4 ABG / Lab / Microbiology Data Result Diagrams: 08/20/22 05:30 08/20/22 05:30 Laboratory: Laboratory Results - last 24 hr 08/18/22 14:50: WBC 14.7 H, RBC 4.20 L, Hgb 13.7, Hct 39.8 L, MCV 94.8 H, MCH 32.6 H, MCHC 34.4, RDW Std Deviation 45.1 H, RDW Coeff of [place] 13.0, Plt Count 334, MPV 10.5, Immature Gran % (Auto) 1.000 H, Neut % (Auto) 78.1 H, Lymph % (Auto) 7.3 L, [place] % (Auto) 12.2 H, Eos % (Auto) 1.0, Baso % (Auto) 0.4, Absolute Neuts (auto) 11.5 H, Absolute Lymphs (auto) 1.08, Nucleated RBC % 0, Differential Comment SCANNED, Diff Path Review September foll 08/18/22 14:50: Sodium 132 L, Potassium 4.0, Chloride 99, Carbon Dioxide 29.0, Anion Gap 4 L, BUN 28 H, Creatinine 0.99, Estim Creat Clear Calc 60.97, Est GFR (MDRD) Af Amer 93, Est GFR (MDRD) Non-Af 77, BUN/Creatinine Ratio 28.3 H, Glucose 98, Calcium 8.9, Troponin I High Sens 4 08/18/22 14:50: ESR 52 H 08/18/22 14:50: Magnesium 1.9, C-React Prot Ext Range 76.60 H 08/18/22 14:50: Phosphorus 3.5 08/18/22 16:00: Urine Color Yellow, Urine Clarity Clear, Urine pH 6.5, Ur Specific [place] 1.015, Urine Protein 500 H, Urine Glucose (UA) Normal, Urine Ketones Negative, Urine Occult Blood 10 H, Urine Nitrite Negative, Urine Bilirubin Negative, Urine Urobilinogen Normal, Ur Leukocyte Esterase Negative, Urine RBC 0 SEEN, Urine WBC 0 SEEN, Ur Squamous Epith Cells 0 SEEN, Urine Bacteria 0 SEEN, Urine Mucus 0 SEEN 08/18/22 17:35: Procalcitonin 0.06 08/18/22 18:15: Fluid Crystals MONOSODIUM URATE, Fluid Crystal Source SYNOVIAL, Fl Crystal Path Review Will follow, Synovial Source RIGHT KNEE, Synovial Color Yellow, Synovial Appearance Cloudy, Synovial Viscosity Sl. Viscous, Synovial WBC 33.1100 H, Synovial RBC 0.002 H, Synovial Tot Cell Ct 33.2300 H, Synov Polynuclear WBCs 32.965, Synov Mononuclear WBCs 3.237, Synovial Neutrophils 97 H, Synovial Lymphocytes 0, Synovial Monocytes 3, Synovial Plasma Cells 0, Synovial Other Cells 0, Synovial Polynuclear % 91.1, Synovial Mononuclear % 8.9, Synovial Path Comment May follow 08/19/22 05:54: WBC 11.7 H, RBC 3.77 L, Hgb 12.1 L, Hct 36.2 L, MCV 96.0 H, MCH 32.1 H, MCHC 33.4, RDW Std Deviation 46.5 H, RDW Coeff of [place] 13.1, Plt Count 292, MPV 10.3, Immature Gran % (Auto) 1.100 H, Neut % (Auto) 73.9 H, Lymph % (Auto) 11.6 L, [place] % (Auto) 11.9 H, Eos % (Auto) 1.0, Baso % (Auto) 0.5, Absolute Neuts (auto) 8.6 H, Absolute Lymphs (auto) 1.35, Nucleated RBC % 0 08/19/22 05:54: Sodium 133 L, Potassium 4.4, Chloride 101, Carbon Dioxide 28.0, Anion Gap 4 L, BUN 33 H, Creatinine 1.13, Estim Creat Clear Calc 53.41, Est GFR (MDRD) Af Amer 79, Est GFR (MDRD) Non-Af 66, BUN/Creatinine Ratio 29.2 H, Glucose 102, Calcium 8.4 L, Total Bilirubin 0.70, AST 18, ALT 17, Alkaline Phosphatase 92, Total Protein 5.9 L, Albumin 1.8 L, Globulin 4.1, Albumin/Globulin Ratio 0.4 L 08/19/22 05:54: Uric Acid 6.3 Microbiology: Microbiology 08/18/22 18:15 Fluid - Synovial (joint) Gram Stain - Final 08/18/22 18:15 Fluid - Synovial (joint) Body Fluid Culture - Preliminary No growth-Final to follow Radiography Diagnostic Testing: Radiology Impression Knee X-Ray 08/18/22 15:02 IMPRESSION: Severe tricompartmental osteoarthrosis most notably along the lateral compartment with large suprapatellar effusion. No evidence of focal fracture. Electronically Signed: Flakito Ott DO at 15:54 EDT , Chest X-Ray 08/18/22 15:22 IMPRESSION: Similar appearance compared to prior with no new focal infiltrate. Electronically Signed: Flakito Ott DO at 15:55 EDT , Meaningful Use Info Meaningful Use Diagnoses (Choose all that apply): None applicable Discharge Plan Admission Admit Date/Time: 08/18/22 17:06 Attending Provider: Jimmy Medina Primary Care Provider: Maninder Malcolm Consulting Providers: Nav Suggs ; Florence Sellers Discharge Orders/Prescriptions Prescriptions: New acetaminophen 325 mg Tablet 650 mg PO Q4H PRN PRN (Reason: Fever, pain 1-02/21) Qty: 0 0RF loperamide 2 mg Capsule 2 mg PO Q4H PRN PRN (Reason: LOOSE STOOLS) Qty: 0 0RF thiamine HCl (vitamin B1) [Vitamin B-1] 100 mg Tablet 100 mg PO DAILYCM Qty: 0 0RF carvedilol 3.125 mg Tablet 3.125 mg PO BIDCM Qty: 0 0RF pantoprazole 40 mg Tablet,Delayed Release (Dr/Ec) 40 mg PO DAILY Qty: 0 0RF indomethacin 25 mg Capsule 25 mg PO TIDCM Qty: 0 0RF budesonide 0.5 mg/2 mL Suspension For Nebulization 0.5 mg inhalation BID.RT Qty: 0 0RF folic acid 1 mg Tablet 1 mg PO DAILY@0800 Qty: 0 0RF dicyclomine 10 mg Capsule 20 mg PO Q6H PRN PRN (Reason: abdominal discomfort) Qty: 0 0RF alum-mag hydroxide-simeth [Mag-Al Plus Extra Strength] 400-400-40 mg/5 mL Suspension 30 ml PO Q6H PRN PRN (Reason: Gastric Burning) Qty: 0 0RF hydroxyzine pamoate 25 mg Capsule 50 mg PO Q4H PRN PRN (Reason: mild anxiety) Qty: 0 0RF Healthy Eyes 300 mcg-200 mg-27 mg-2 mg Tablet 1 cap PO BID Qty: 0 0RF menthol-zinc oxide [Calmoseptine] 0.44-20.6 % Ointment 1 applic topical BID Qty: 0 0RF Protocol: *Topical Application Instructions APPLICATION INSTRUCTIONS: BUTTOCKS allopurinol 100 mg tablet 100 mg PO DAILY Qty: 1 0RF Continued atorvastatin 80 mg tablet 80 mg PO QHS Label Comments: TAKE 1 TABLET BY MOUTH EVERY DAY albuterol sulfate 18 GM HFA aerosol inhaler 2 puff inhalation Q4H PRN (Reason: Sob &/Or Wheezing) Label Comments: COPD losartan 50 MG tablet 50 mg PO BID Qty: 60 0RF hydralazine 25 MG tablet 25 mg PO TID Qty: 90 0RF amlodipine 10 MG tablet 10 mg PO DAILY Qty: 30 0RF furosemide 40 MG tablet 40 mg PO DAILY Qty: 30 0RF menthol-zinc oxide 1 APPLIC ointment 1 applic topical TID Protocol: *Topical Application Instructions APPLICATION INSTRUCTIONS: Apply to affected area of buttocks docusate sodium [Colace] 100 mg capsule 100 mg PO BID Qty: 20 0RF polyethylene glycol 3350 [Miralax] 17 gram powder in packet 17 g PO DAILY Qty: 100 1RF multivitamin Tablet 1 tab PO DAILY bupropion HCl 75 mg tablet 75 mg PO BID Label Comments: TAKE 1 TABLET BY MOUTH TWICE A DAY Discontinued albuterol sulfate 2.5 mg /3 mL (0.083 %) solution for nebulization 2.5 mg INHALATION Q4H PRN (Reason: Sob &/Or Wheezing) Label Comments: USE 3 ML VIA NEBULIZER EVERY 4 HOURS NEEDED Referrals / Follow Up: Maninder Malcolm PA [Primary Care Provider] - Within 2 Weeks Disposition Disposition (needs filled in before D/C Order can be placed): [facility] Living Facility Charges/Coding Visit Charges Inpatient E&M: 87222 Disch Hosp >30min
[2022-08-19] MEDS: Indomethacin 25 MG Capsule PO ×2 (12:17→18:04)
[2022-08-19] MEDS: Pantoprazole Sodium 40 MG Tablet PO (12:17)
[2022-08-19 12:57] LABS: Pathologist Review Reviewed
[2022-08-19 13:02] LABS: Pathologist Review Reviewed
--- NOTE | 2022-08-19 13:30 | CASEMGMT ---
A list of SNF providers including quality and resource use data and consistent with patient?s preferred geographic region, medical needs, and insurance network were provided from the [employer] Guide. Pt's daughter present and daughter and patient requested [facility]. Referral sent to [facility] via [facility]. Mahsa Mcintosh MSW, SOLAR POOL HEATING INSTALLER
[2022-08-19] MEDS: Albuterol 2.5 MG/3 ML VIAL.NEB. INHALATION (15:48)
--- NOTE | 2022-08-19 16:15 | CASEMGMT ---
MIESHA GRIER in to discuss BRYANT form with patient. RN MARVEL explained BRYANT form, patient voiced understanding. Pt signed form and filed in chart by placing X on the form as pt is blind. Pt provided with a copy of signed BRYANT form. Patient asked for a drink. This RN MARVEL provided him with his water pitcher. Patient then stated he needed his alcohol as this has been approved by the doctor per his report. Updated nurse of this. Patient had no further questions or concerns at this time.
--- NOTE | 2022-08-19 16:23 | CASEMGMT ---
[facility] She reports they are reviewing it and she will call as soon as she gets approval. Followed up with another phone call and she reports she still has not gotten approval. Mahsa Mcintosh COLLECTION DEVELOPMENT LIBRARIAN, COLLECTION DEVELOPMENT LIBRARIAN
--- NOTE | 2022-08-19 16:51 | NURSING ---
Page to Dr. Medina pt takes 30cc vodka in and and 30cc vodka in pm per Daughter.
[2022-08-19] MEDS: Gabapentin 300 MG Capsule PO (21:55)
[2022-08-19] MEDS: Atorvastatin Calcium 80 MG Tablet PO (22:20)
[2022-08-19] MEDS: buPROPion 75 MG Tablet PO (22:20)
[2022-08-20] VITALS (10 sets, daily range): BP systolic 128–135; BP diastolic 52–57; PULSE 41–58; RESP 18–20; TEMP 36.4–36.6; O2SAT 93–98; BMI 25.4
[2022-08-20 05:47] LABS: Absolute Lymphocyte Count 1.26 X10^3/uL (0.83-4.51); Absolute Neutrophil Count 5.9 X10^3/uL (2.0-7.7); Basophil# 0.02 X10^3/uL; Basophil% 0.2 % (0-1); Eosinophil# 0.21 X10^3/uL; Eosinophils% 2.5 % (0-5); Hemoglobin 11.3 g/dL (13.0-16.5); Lymphocyte # 1.26 X10^3/ul (0.83-4.51); Lymphocyte % 14.8 % (19-41); Mean Corp Hgb Conc 34.2 g/dL (32-36); Mean Corpuscular Hgb 32.8 pg (27.0-32.0); Mean Corpuscular Volume 95.9 fL (80-94); Mean Platelet Vol. 10.3 fl (6.2-12.0); Monocyte# 1.06 X10^3/uL; Monocyte% 12.4 % (0-10); NRBC Flagged by Analyzer 0 % (0-5); Neutrophil % 69.2 % (47-70); Platelet Count 234 K/mm3 (150-450); RBC Distribution Width CV 13.2 % (11.6-14.6); RBC Distribution Width SD 46.5 fl (35.1-43.9); Red Blood Count 3.44 M/mm3 (4.6-6.2); White Blood Count 8.5 K/mm3 (4.4-11.0)
[2022-08-20 06:10] LABS: Anion Gap 6 (5-15); BUN 48 mg/dL (7-18); BUN/Creat Ratio 34.5 RATIO (10-20); Calcium,Total 8.3 mg/dL (8.5-10.1); Chloride 100 mmol/L (98-107); Creatinine, Serum 1.39 mg/dL (0.70-1.30); EST Glomerular Filtration Rate 52 mL/min (>60); Est Glom Filt Rate - Afr Amer 63 mL/min (>60); Estimated Creatinine Clearance 43.42 ml/min; Glucose 119 mg/dL (74-106); Phosphorus 4.6 mg/dL (2.5-4.9); Potassium 4.1 mmol/L (3.5-5.1); Sodium Level 132 mmol/L (136-145)
[2022-08-20] MEDS: Budesonide Respules 0.5 MG/2 ML AMPUL.NEB. INHALATION ×2 (07:08→19:14)
[2022-08-20] MEDS: Indomethacin 25 MG Capsule PO ×3 (08:28→17:49)
[2022-08-20] MEDS: Folic Acid 1 MG Tablet PO (08:29)
[2022-08-20] MEDS: Pantoprazole Sodium 40 MG Tablet PO (08:29)
[2022-08-20] MEDS: Aspirin E.C. 81 MG Tablet PO (08:29)
[2022-08-20] MEDS: Thiamine Hydrochloride 100 MG Tablet PO (08:29)
--- NOTE | 2022-08-20 08:43 | PCM.PN.HOSP ---
Reason for Visit Reason for Visit: Diagnoses Gout, unspecified (08/18/22) Effusion, right knee (08/18/22) Subjective Subjective Patient seen knee pain much controlled. Awaiting insurance precertification prior to transfer to assisted facility Objective Data Objective Data Vital Signs: Vital Signs Temp Pulse Resp BP Pulse Ox O2 Del Method O2 Flow Rate 97.7 F L 42 L 18 134/52 H 96 Trach Collar 6 08/20/22 08:23 08/20/22 08:23 08/20/22 08:23 08/20/22 08:23 08/20/22 08:23 08/20/22 08:31 08/20/22 08:23 FiO2 30 08/20/22 07:08 Oxygen Flow Rate (L/min) 6 Oxygen Delivery Method Trach Collar Weight: 85.1 kg Body Mass Index (BMI) 25.4 Intake & Output: Intake and Output for Last 24 Hours 08/18/22 08/19/22 08/20/22 23:59 23:59 23:59 Intake Total 350 / 350 650 / 650 Output Total 300 / 300 450 / 450 Balance 50 / 50 200 / 200 Lab / Micro Data Result Diagrams: 08/20/22 05:30 08/20/22 05:30 Labs: Laboratory Results - last 24 hr 08/18/22 14:50: Diff Path Review Reviewed 08/18/22 18:15: Fl Crystal Path Review Reviewed 08/19/22 05:54: Uric Acid 6.3 08/20/22 05:30: WBC 8.5, RBC 3.44 L, Hgb 11.3 L, Hct 33.0 L, MCV 95.9 H, MCH 32.8 H, MCHC 34.2, RDW Std Deviation 46.5 H, RDW Coeff of [place] 13.2, Plt Count 234, MPV 10.3, Immature Gran % (Auto) 0.900, Neut % (Auto) 69.2, Lymph % (Auto) 14.8 L, [place] % (Auto) 12.4 H, Eos % (Auto) 2.5, Baso % (Auto) 0.2, Absolute Neuts (auto) 5.9, Absolute Lymphs (auto) 1.26, Nucleated RBC % 0 08/20/22 05:30: Sodium 132 L, Potassium 4.1, Chloride 100, Carbon Dioxide 26.0, Anion Gap 6, BUN 48 H, Creatinine 1.39 H, Estim Creat Clear Calc 43.42, Est GFR (MDRD) Af Amer 63, Est GFR (MDRD) Non-Af 52 L, BUN/Creatinine Ratio 34.5 H, Glucose 119 H, Calcium 8.3 L, Phosphorus 4.6, Magnesium 2.0 Micro: Microbiology 08/18/22 18:15 Fluid - Synovial (joint) Gram Stain - Final 08/18/22 18:15 Fluid - Synovial (joint) Body Fluid Culture - Preliminary No growth-Final to follow Physical Exam Narrative GENERAL: cooperative HEENT: Atraumatic; normocephalic EYES; opacification of the left eye NECK; tracheostomy in place RESPIRATORY: Diminished to auscultation CARDIOVASCULAR:? Regular S1 S2, GI:? soft, normoactive bowel sounds, : No Renal angle tenderness; EXTREMITIES:? No edema, no clubbing, MUSCULOSKELETAL:? no muscle wasting NEURO:? Awake;? no lateralizing signs. SKIN:? No Rash PSYCH; Flat? affect Assessment & Plan Assessment/Plan (1) Effusion of right knee: PLAN: Plan Patient is an 82-year-old gentleman with multiple comorbidities brought to the emergency department with progressive generalized weakness and right knee pain. An assessment of adult failure to thrive made admitted to regular nursing floor for further management 1. Physical deconditioning - Requested for PT OT eval and marriage and family social worker to assist with discharge planning 2. Right knee pain ? Consistent with gout patient underwent knee aspiration which demonstrated shows positive monosodium urate crystals, cell count 33K, mostly neutrophils. Orthopedic surgery recommended him to intermittent 3. Hypertension - Blood pressure controlled, home medications continued with dose adjustment as needed 4.? Paroxysmal A-fib ? Rate controlled on beta-blockers patient not on systemic anticoagulation due to significant risk for falls 5.? History of laryngeal CA ? 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 History of AAA ? Status post repair 7.? COPD ? Currently not in exacerbation did continue patient bronchodilator treatment regimen 8.? Dyslipidemia -Patient is on statin therapy, continued at home dose 9.? DVT prophylaxis - On enoxaparin 10. Chronic alcohol dependence ? Patient is on alcohol shots Time spent in the patient's overall evaluation,decision-making process, review of diagnostic data, adjustment of management, discussion with other providers, nursing nursing and ancillary staff involved in patient's care documentation, 37 minutes Charges/Coding Visit Charges Inpatient E&M: 40091 Subs Hosp L2
[2022-08-20] MEDS: Acetaminophen 325 MG Tablet 650 MG PO ×2 (09:04→17:52)
--- NOTE | 2022-08-20 09:12 | NURSING ---
30 cc vodka given in [facility] in the room
[2022-08-20] MEDS: Carvedilol 3.125 MG TABLET PO ×2 (10:56→17:50)
[2022-08-20] MEDS: Menthol/Lanolin/Calamine/Znox 113 GM Tube 1 APPLIC TOPICAL ×2 (10:56→21:57)
[2022-08-20] MEDS: Docusate Sodium 100 MG Capsule PO ×2 (10:57→21:55)
[2022-08-20] MEDS: Furosemide 40 MG Tablet PO (10:59)
[2022-08-20] MEDS: Polyethylene Glycol 3350 17 GM PACKET PO (10:59)
[2022-08-20] MEDS: Multivitamin (Healthy Eyes) Capsule 1 CAP PO ×2 (10:59→21:56)
[2022-08-20] MEDS: amLODIPine 10 MG Tablet PO (10:59)
[2022-08-20] MEDS: Losartan Potassium 50 MG Tablet PO ×2 (10:59→21:56)
[2022-08-20] MEDS: buPROPion 75 MG Tablet PO ×2 (11:00→21:56)
[2022-08-20] MEDS: hydrALAZINE 25 MG Tablet PO ×2 (13:34→21:55)
[2022-08-20 14:16] LABS: GLUCOSE, SYNOVIAL FLUID 45 mg/dL (.)
--- NOTE | 2022-08-20 18:19 | NURSING ---
PT GIVEN 30 CC VODKA FROM THE MED ROOM WITH OMariano
[2022-08-20] MEDS: Albuterol 2.5 MG/3 ML VIAL.NEB. INHALATION ×2 (19:14→21:33)
[2022-08-20] MEDS: traZODone 100 MG Tablet 50 MG PO (21:55)
[2022-08-20] MEDS: Atorvastatin Calcium 80 MG Tablet PO (21:56)
[2022-08-21] VITALS (8 sets, daily range): BP systolic 118–140; BP diastolic 50–82; PULSE 40–59; RESP 16–18; TEMP 36.6; O2SAT 97–100; BMI 26.8
[2022-08-21 05:46] LABS: Absolute Lymphocyte Count 0.96 X10^3/uL (0.83-4.51); Basophil# 0.03 X10^3/uL; Basophil% 0.3 % (0-1); Eosinophil# 0.25 X10^3/uL; Eosinophils% 2.2 % (0-5); Hematocrit 33.3 % (40-54); Hemoglobin 11.2 g/dL (13.0-16.5); Lymphocyte # 0.96 X10^3/ul (0.83-4.51); Lymphocyte % 8.5 % (19-41); Mean Corp Hgb Conc 33.6 g/dL (32-36); Mean Corpuscular Hgb 32.5 pg (27.0-32.0); Mean Corpuscular Volume 96.5 fL (80-94); Mean Platelet Vol. 10.7 fl (6.2-12.0); Monocyte# 1.02 X10^3/uL; NRBC Flagged by Analyzer 0 % (0-5); Neutrophil # 8.95 X10^3/uL (2.7-7.7); Neutrophil % 79.1 % (47-70); Platelet Count 266 K/mm3 (150-450); RBC Distribution Width SD 45.7 fl (35.1-43.9); Red Blood Count 3.45 M/mm3 (4.6-6.2); White Blood Count 11.3 K/mm3 (4.4-11.0)
[2022-08-21 06:24] LABS: Anion Gap 4 (5-15); BUN 56 mg/dL (7-18); BUN/Creat Ratio 41.2 RATIO (10-20); Calcium,Total 8.3 mg/dL (8.5-10.1); Chloride 100 mmol/L (98-107); Creatinine, Serum 1.36 mg/dL (0.70-1.30); EST Glomerular Filtration Rate 53 mL/min (>60); Est Glom Filt Rate - Afr Amer 64 mL/min (>60); Estimated Creatinine Clearance 44.38 ml/min; Glucose 107 mg/dL (74-106); Potassium 4.4 mmol/L (3.5-5.1); Sodium Level 129 mmol/L (136-145)
[2022-08-21] MEDS: Albuterol 2.5 MG/3 ML VIAL.NEB. INHALATION (07:05)
[2022-08-21] MEDS: Budesonide Respules 0.5 MG/2 ML AMPUL.NEB. INHALATION ×2 (07:10→19:23)
--- NOTE | 2022-08-21 07:17 | PN.HOSP_ITS ---
Reason for Visit Reason for Visit: Diagnoses Gout, unspecified (08/18/22) Effusion, right knee (08/18/22) Subjective Subjective Patient seen started on Flomax for recurrent urinary retention. Still awaiting insurance pre-CERT [facility] Objective Data Objective Data Vital Signs: Vital Signs Temp Pulse Resp BP Pulse Ox O2 Del Method O2 Flow Rate 97.9 F 44 L 18 118/52 L 98 Trach Collar 6 08/21/22 03:37 08/21/22 07:05 08/21/22 07:05 08/21/22 03:37 08/21/22 03:37 08/21/22 07:05 08/21/22 03:38 FiO2 28 08/21/22 07:05 Oxygen Flow Rate (L/min) 6 Oxygen Delivery Method Trach Collar Weight: 89.8 kg Body Mass Index (BMI) 26.8 Intake & Output: Intake and Output for Last 24 Hours 08/19/22 08/20/22 08/21/22 23:59 23:59 23:59 Intake Total 650 / 650 850 / 850 Output Total 450 / 450 750 / 750 400 / 400 Balance 200 / 200 100 / 100 -400 / -400 Lab / Micro Data Result Diagrams: 08/21/22 05:25 08/21/22 05:25 Labs: Laboratory Results - last 24 hr 08/18/22 18:15: Synovial Glucose 45 08/21/22 05:25: WBC 11.3 H, RBC 3.45 L, Hgb 11.2 L, Hct 33.3 L, MCV 96.5 H, MCH 32.5 H, MCHC 33.6, RDW Std Deviation 45.7 H, RDW Coeff of [place] 13.0, Plt Count 266, MPV 10.7, Immature Gran % (Auto) 0.900, Neut % (Auto) 79.1 H, Lymph % (Auto) 8.5 L, Kimble % (Auto) 9.0, Eos % (Auto) 2.2, Baso % (Auto) 0.3, Absolute Neuts (auto) 9.0 H, Absolute Lymphs (auto) 0.96, Nucleated RBC % 0 08/21/22 05:25: Sodium 129 L, Potassium 4.4, Chloride 100, Carbon Dioxide 25.0, Anion Gap 4 L, BUN 56 H, Creatinine 1.36 H, Estim Creat Clear Calc 44.38, Est GFR (MDRD) Af Amer 64, Est GFR (MDRD) Non-Af 53 L, BUN/Creatinine Ratio 41.2 H, Glucose 107 H, Calcium 8.3 L Micro: Microbiology 08/18/22 18:15 Fluid - Synovial (joint) Gram Stain - Final 08/18/22 18:15 Fluid - Synovial (joint) Body Fluid Culture - Preliminary No growth-Final to follow 08/18/22 18:15 Fluid - Synovial (joint) Anaerobic Culture - Preliminary No growth in 48 hours. Physical Exam Narrative GENERAL: cooperative HEENT: Atraumatic; normocephalic EYES; opacification of the left eye NECK; tracheostomy in place RESPIRATORY: Diminished to auscultation CARDIOVASCULAR:? Regular S1 S2, GI:? soft, normoactive bowel sounds, : No Renal angle tenderness; EXTREMITIES:? No edema, no clubbing, MUSCULOSKELETAL:? no muscle wasting NEURO:? Awake;? no lateralizing signs. SKIN:? No Rash PSYCH; Flat? affect Assessment & Plan Assessment/Plan (1) Effusion of right knee: PLAN: Plan Patient is an 82-year-old gentleman with multiple comorbidities brought to the emergency department with progressive generalized weakness and right knee pain. An assessment of adult failure to thrive made admitted to regular nursing floor for further management 1. Physical deconditioning - Requested for PT OT eval and social service agency director to assist with discharge planning 2. Right knee pain ? Consistent with gout patient underwent knee aspiration which demonstrated shows positive monosodium urate crystals, cell count 33K, mostly neutrophils. Orthopedic surgery recommended him to intermittent 3. Hypertension - Blood pressure controlled, home medications continued with dose adjustment as needed 4.? Paroxysmal A-fib ? Rate controlled on beta-blockers patient not on systemic anticoagulation due to significant risk for falls 5.? History of laryngeal CA ? 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 History of AAA ? Status post repair 7.? COPD ? Currently not in exacerbation did continue patient bronchodilator treatment regimen 8.? Dyslipidemia -Patient is on statin therapy, continued at home dose 9.? DVT prophylaxis - On enoxaparin 10. Chronic alcohol dependence ? Patient is on alcohol shots 11. Urinary retention ? Suspected to be secondary to BPH patient started on Flomax and ordered intermittent straight cath Time spent in the patient's overall evaluation,decision-making process, review of diagnostic data, adjustment of management, discussion with other providers, nursing nursing and ancillary staff involved in patient's care documentation, 37 minutes Charges/Coding Visit Charges Inpatient E&M: 15566 Subs Hosp L2
[2022-08-21] MEDS: Multivitamin (Healthy Eyes) Capsule 1 CAP PO ×2 (08:59→22:50)
[2022-08-21] MEDS: Tamsulosin HCl 0.4 MG Capsule PO (08:59)
[2022-08-21] MEDS: Furosemide 40 MG Tablet PO (09:00)
[2022-08-21] MEDS: buPROPion 75 MG Tablet PO ×2 (09:00→22:50)
[2022-08-21] MEDS: Pantoprazole Sodium 40 MG Tablet PO (09:00)
[2022-08-21] MEDS: Losartan Potassium 50 MG Tablet PO ×2 (09:00→22:50)
[2022-08-21] MEDS: Carvedilol 3.125 MG TABLET PO ×2 (09:00→17:56)
[2022-08-21] MEDS: Folic Acid 1 MG Tablet PO (09:00)
[2022-08-21] MEDS: Docusate Sodium 100 MG Capsule PO ×2 (09:00→22:50)
[2022-08-21] MEDS: Thiamine Hydrochloride 100 MG Tablet PO (09:00)
[2022-08-21] MEDS: Polyethylene Glycol 3350 17 GM PACKET PO (09:01)
[2022-08-21] MEDS: Aspirin E.C. 81 MG Tablet PO (09:02)
[2022-08-21] MEDS: amLODIPine 10 MG Tablet PO (09:02)
[2022-08-21] MEDS: Indomethacin 25 MG Capsule PO ×3 (09:02→17:55)
--- NOTE | 2022-08-21 09:04 | NURSING ---
pt up to chair and 30 cc vodka given with oj- pt is being fed breakfast at this time per sewing machinist Vira
[2022-08-21] MEDS: Menthol/Lanolin/Calamine/Znox 113 GM Tube 1 APPLIC TOPICAL ×2 (09:05→22:50)
[2022-08-21] MEDS: hydrALAZINE 25 MG Tablet PO ×2 (13:33→22:50)
[2022-08-21] MEDS: Acetaminophen 325 MG Tablet 650 MG PO (17:59)
[2022-08-21] MEDS: Atorvastatin Calcium 80 MG Tablet PO (22:50)
[2022-08-21] MEDS: traZODone 100 MG Tablet 50 MG PO (22:50)
[2022-08-22 05:13] LABS: Absolute Lymphocyte Count 1.26 X10^3/uL (0.83-4.51); Absolute Neutrophil Count 8.9 X10^3/uL (2.0-7.7); Basophil# 0.06 X10^3/uL; Basophil% 0.5 % (0-1); Eosinophil# 0.28 X10^3/uL; Eosinophils% 2.4 % (0-5); Hematocrit 34.2 % (40-54); Hemoglobin 11.2 g/dL (13.0-16.5); Lymphocyte # 1.26 X10^3/ul (0.83-4.51); Lymphocyte % 10.9 % (19-41); Mean Corp Hgb Conc 32.7 g/dL (32-36); Mean Corpuscular Volume 97.7 fL (80-94); Mean Platelet Vol. 10.4 fl (6.2-12.0); Monocyte% 8.7 % (0-10); NRBC Flagged by Analyzer 0 % (0-5); Neutrophil # 8.85 X10^3/uL (2.7-7.7); Neutrophil % 76.7 % (47-70); Platelet Count 246 K/mm3 (150-450); RBC Distribution Width CV 12.9 % (11.6-14.6); White Blood Count 11.5 K/mm3 (4.4-11.0)
[2022-08-22 05:34] LABS: Anion Gap 4 (5-15); BUN 69 mg/dL (7-18); Calcium,Total 8.7 mg/dL (8.5-10.1); Chloride 98 mmol/L (98-107); EST Glomerular Filtration Rate 47 mL/min (>60); Est Glom Filt Rate - Afr Amer 57 mL/min (>60); Estimated Creatinine Clearance 40.24 ml/min; Glucose 104 mg/dL (74-106); Potassium 4.4 mmol/L (3.5-5.1); Sodium Level 131 mmol/L (136-145)
[2022-08-22 06:00] VITALS: BMI 27.0
[2022-08-22 06:34] VITALS: PULSE 39
[2022-08-22 06:36] VITALS: BP 136/68; PULSE 39; RESP 16; TEMP 36.8; O2SAT 97
[2022-08-22] MEDS: Budesonide Respules 0.5 MG/2 ML AMPUL.NEB. INHALATION (06:53)
[2022-08-22 06:54] VITALS: PULSE 60; RESP 18; O2SAT 94
[2022-08-22] MEDS: Furosemide 40 MG Tablet PO (08:50)
[2022-08-22] MEDS: buPROPion 75 MG Tablet PO (08:51)
[2022-08-22] MEDS: Docusate Sodium 100 MG Capsule PO (08:51)
[2022-08-22] MEDS: Tamsulosin HCl 0.4 MG Capsule PO (08:51)
[2022-08-22] MEDS: Aspirin E.C. 81 MG Tablet PO (08:51)
[2022-08-22] MEDS: Indomethacin 25 MG Capsule PO ×2 (08:51→12:43)
[2022-08-22] MEDS: Pantoprazole Sodium 40 MG Tablet PO (08:51)
[2022-08-22] MEDS: Menthol/Lanolin/Calamine/Znox 113 GM Tube 1 APPLIC TOPICAL (08:52)
[2022-08-22] MEDS: Carvedilol 3.125 MG TABLET PO (08:52)
[2022-08-22] MEDS: amLODIPine 10 MG Tablet PO (08:52)
[2022-08-22] MEDS: Folic Acid 1 MG Tablet PO (08:52)
[2022-08-22] MEDS: Thiamine Hydrochloride 100 MG Tablet PO (08:52)
[2022-08-22] MEDS: Losartan Potassium 50 MG Tablet PO (08:52)
[2022-08-22] MEDS: Polyethylene Glycol 3350 17 GM PACKET PO (08:53)
[2022-08-22] MEDS: Multivitamin (Healthy Eyes) Capsule 1 CAP PO (08:53)
[2022-08-22 09:19] VITALS: BP 141/60; PULSE 55; RESP 16; TEMP 36.7; O2SAT 98
--- NOTE | 2022-08-22 09:52 | CASEMGMT ---
Addendum entered by Amy Husain 08/22/22 12:21: Social Work Pt has been discharged. PASRR completed in HENS and faxed along with orders and negative covid test to [facility]. Phone call to pt dgt [facility] and updated on d/c plan. [facility] plans to transport pt and will be in shortly. Nursing updated. Phone call to [facility] and updated on discharge time. Plan: [facility], skilled level of care SHAHEEN Barrera Addendum entered by Amy Husain 08/22/22 10:29: Per NISA Lan social media manager, pt has been accepted at [facility]. Physician updated. NISA met with pt and updated that he has been accept to [facility] and will likely d/c today. Pt agreeable. SHAHEEN Scott Original Note: Social Work Phone call to [facility] and to check on referral. NISA spoke with Band Teacher who states they are still reviewing referral and will call this SW back shortly with determination of acceptance. SHAHEEN Moncada
--- NOTE | 2022-08-22 11:00 | PCM.TXEXTCAR ---
Diet Diet Order/Speech Therapy: 08/18/22 19:35 Diet: Cardiac - Heart Healthy Food consistency:: Regular Liquid Consistency:: Regular/Thin Type of Dietary Supplement:: Ensure Plus High Protein Is pt able to select menu?: No Diet Comments: BLIND PLEASE bring to desk pt is a feed Routine Orders/Code Status O2 Frequency: via Trach Collar Keep PO Greater than or Equal to (%): 90 Code Status: Full Code Wound(s) LEFT OUTER ANKLE: Wound Type: Abrasion DONAVAN FEET: Wound Type: Abrasion DONAVAN LEGS: Wound Type: Abrasion DONAVAN ARMS: Wound Type: Abrasion LEFT BUTTOCK: Wound Type: Pressure Injury LEFT HEEL: Wound Type: Pressure Injury Therapies Weight Bearing: Weight bearing as tolerated Physical Therapy: Eval and Treat Occupational Therapy: Eval and Treat Problem/Diagnosis (1) Effusion of right knee: Status: Acute Code(s): M25.461 - Effusion, right knee Comment: gout (2) History of laryngeal cancer: Status: Resolved Code(s): Z85.21 - Personal history of malignant neoplasm of larynx Comment: had surgery with a tracheostomy in 1994 (3) Debility: Status: Acute Code(s): R53.81 - Other malaise (4) Blind: Status: Chronic Code(s): H54.7 - Unspecified visual loss (5) Alcohol dependence: Status: Chronic Code(s): F10.20 - Alcohol dependence, uncomplicated Comment: beer daily Allergies/Procedures Done in Hospital Allergies iodine Allergy (Intermediate, Verified 08/18/22 19:30) Unknown tremors Procedures: None Type of Care/Length of Stay Estimated LOS: Convalescent Care Less Than 30 days Type of Care Needed: Skilled Rehab Potential: Good Prognosis: Good Additional Orders/Day of Discharge H&P will serve as current which was dated: 08/18/22 Day of Discharge: 08/22/22 Discharge Plan Admission Admit Date/Time: 08/18/22 17:06 Primary Reason for Your Visit: debility, right knee gouty pain Attending Provider: Misael Hay Primary Care Provider: Maninder Malcolm Consulting Providers: Nav Suggs ; Florence Sellers ; Jimmy Medina Discharge Orders/Prescriptions Prescriptions: New acetaminophen 325 mg Tablet 650 mg PO Q4H PRN PRN (Reason: Fever, pain 1-02/21) Qty: 0 0RF loperamide 2 mg Capsule 2 mg PO Q4H PRN PRN (Reason: LOOSE STOOLS) Qty: 0 0RF thiamine HCl (vitamin B1) [Vitamin B-1] 100 mg Tablet 100 mg PO DAILYCM Qty: 0 0RF carvedilol 3.125 mg Tablet 3.125 mg PO BIDCM Qty: 0 0RF pantoprazole 40 mg Tablet,Delayed Release (Dr/Ec) 40 mg PO DAILY Qty: 0 0RF indomethacin 25 mg Capsule 25 mg PO TIDCM Qty: 0 0RF budesonide 0.5 mg/2 mL Suspension For Nebulization 0.5 mg inhalation BID.RT Qty: 0 0RF folic acid 1 mg Tablet 1 mg PO DAILY@0800 Qty: 0 0RF dicyclomine 10 mg Capsule 20 mg PO Q6H PRN PRN (Reason: abdominal discomfort) Qty: 0 0RF alum-mag hydroxide-simeth [Mag-Al Plus Extra Strength] 400-400-40 mg/5 mL Suspension 30 ml PO Q6H PRN PRN (Reason: Gastric Burning) Qty: 0 0RF hydroxyzine pamoate 25 mg Capsule 50 mg PO Q4H PRN PRN (Reason: mild anxiety) Qty: 0 0RF Healthy Eyes 300 mcg-200 mg-27 mg-2 mg Tablet 1 cap PO BID Qty: 0 0RF menthol-zinc oxide [Calmoseptine] 0.44-20.6 % Ointment 1 applic topical BID Qty: 0 0RF Protocol: *Topical Application Instructions APPLICATION INSTRUCTIONS: BUTTOCKS allopurinol 100 mg tablet 100 mg PO DAILY Qty: 1 0RF tamsulosin 0.4 mg Capsule 0.4 mg PO DAILY Qty: 0 0RF Continued atorvastatin 80 mg tablet 80 mg PO QHS Label Comments: TAKE 1 TABLET BY MOUTH EVERY DAY albuterol sulfate 18 GM HFA aerosol inhaler 2 puff inhalation Q4H PRN (Reason: Sob &/Or Wheezing) Label Comments: COPD losartan 50 MG tablet 50 mg PO BID Qty: 60 0RF hydralazine 25 MG tablet 25 mg PO TID Qty: 90 0RF amlodipine 10 MG tablet 10 mg PO DAILY Qty: 30 0RF furosemide 40 MG tablet 40 mg PO DAILY Qty: 30 0RF menthol-zinc oxide 1 APPLIC ointment 1 applic topical TID Protocol: *Topical Application Instructions APPLICATION INSTRUCTIONS: Apply to affected area of buttocks docusate sodium [Colace] 100 mg capsule 100 mg PO BID Qty: 20 0RF polyethylene glycol 3350 [Miralax] 17 gram powder in packet 17 g PO DAILY Qty: 100 1RF multivitamin Tablet 1 tab PO DAILY bupropion HCl 75 mg tablet 75 mg PO BID Label Comments: TAKE 1 TABLET BY MOUTH TWICE A DAY Discontinued albuterol sulfate 2.5 mg /3 mL (0.083 %) solution for nebulization 2.5 mg INHALATION Q4H PRN (Reason: Sob &/Or Wheezing) Label Comments: USE 3 ML VIA NEBULIZER EVERY 4 HOURS NEEDED Referrals / Follow Up: Maninder Malcolm PA [Primary Care Provider] - Within 2 Weeks Disposition Disposition (needs filled in before D/C Order can be placed): Senior Living Facility
--- NOTE | 2022-08-22 11:13 | DS.PCM_ITS ---
Providers Date of Admission: 08/18/22 Date of Discharge: 08/22/22 Primary Care Physician: RONNI Linton Consultations 08/18/22 19:34 Consult: Orthopedics Routine Consulting Provider: Nav Suggs Reason for Consult: Intractable R knee pain EMERGENT Consult: No MD Notified: Yes Date Notified: 08/18/22 Time Notified: 17:07 Method of Notification: Verbal Reason For Visit: R KNEE PAIN, ADULT FTT Diagnosis Discharge Diagnosis (1) Effusion of right knee: Status: Acute Code(s): M25.461 - Effusion, right knee (2) History of laryngeal cancer: Status: Resolved Code(s): Z85.21 - Personal history of malignant neoplasm of larynx (3) Debility: Status: Acute Code(s): R53.81 - Other malaise (4) Blind: Status: Chronic Code(s): H54.7 - Unspecified visual loss (5) Alcohol dependence: Status: Chronic Code(s): F10.20 - Alcohol dependence, uncomplicated Plan 1. Acute debility #2 right knee pain consistent with chronic gout #3 essential hypertension #4 paroxysmal A-fib #5 chronic obstructive pulmonary disease #6 dyslipidemia #7 acute bladder neck obstruction secondary to BPH Medications at Discharge Home Medications albuterol sulfate 90 mcg/actuation aerosol inhaler 2 puff inhalation Q4H PRN Sob &/Or Wheezing 08/18/16 atorvastatin 80 mg tablet 80 mg PO QHS heart 11/27/19 losartan 50 mg tablet 50 mg PO BID #60 tabs 12/01/19 amlodipine 10 mg tablet 10 mg PO DAILY #30 tabs 12/08/19 furosemide 40 mg tablet 40 mg PO DAILY #30 tabs 12/08/19 hydralazine 25 mg tablet 25 mg PO TID #90 tabs 12/08/19 menthol 0.44 %-zinc oxide 20.6 % topical ointment 1 applic topical TID redness 12/08/19 docusate sodium 100 mg capsule (Colace) 100 mg PO BID #20 caps 06/26/22 polyethylene glycol 3350 17 gram oral powder packet (Miralax) 17 g PO DAILY #100 ea 06/29/22 bupropion HCl 75 mg tablet 75 mg PO BID DEPRESSION 08/18/22 multivitamin 1 tab PO DAILY REPLACEMENT 08/18/22 acetaminophen 325 mg tablet 650 mg PO Q4H PRN PRN Fever, pain 1-02/21 #0 tabs 08/19/22 allopurinol 100 mg tablet 100 mg PO DAILY #1 TAB 08/19/22 aluminum-mag hydroxide-simethicone 400 mg-400 mg-40 mg/5 mL oral susp (Mag-Al Plus Extra Strength) 30 ml PO Q6H PRN PRN Gastric Burning #0 mL 08/19/22 budesonide 0.5 mg/2 mL suspension for nebulization 0.5 mg (2 mL) inhalation BID.RT #0 mL 08/19/22 carvedilol 3.125 mg tablet 3.125 mg PO BIDCM #0 tabs 08/19/22 dicyclomine 10 mg capsule 20 mg PO Q6H PRN PRN abdominal discomfort #0 caps 08/19/22 folic acid 1 mg tablet 1 mg PO DAILY@0800 #0 tabs 08/19/22 hydroxyzine pamoate 25 mg capsule 50 mg PO Q4H PRN PRN mild anxiety #0 caps 08/19/22 indomethacin 25 mg capsule 25 mg PO TIDCM #0 caps 08/19/22 loperamide 2 mg capsule 2 mg PO Q4H PRN PRN LOOSE STOOLS #0 caps 08/19/22 menthol 0.44 %-zinc oxide 20.6 % topical ointment (Calmoseptine) 1 applic topical BID #0 grams 08/19/22 pantoprazole 40 mg tablet,delayed release 40 mg PO DAILY #0 tabs 08/19/22 thiamine HCl (vitamin B1) 100 mg tablet (Vitamin B-1) 100 mg PO DAILYCM #0 tabs 08/19/22 vit A 300 mcg-C 200 mg-E 27 mg-lutein 2 mg and minerals tablet (Healthy Eyes) 1 cap PO BID #0 tabs 08/19/22 tamsulosin 0.4 mg capsule 0.4 mg PO DAILY #0 caps 08/22/22 Hospital Course Operations None Procedures None Summary of Care Provided Minutes Spent on Discharge: 31 Hospital Course: This 82-year-old white male was seen in the emergency room at [facility] with chief complaint of right knee pain and acute debility, patient has many medical comorbidities, he was not able to get around at home due to severe right knee pain over 2 weeks. Work-up in ED included labs which showed a sl ightly elevated white blood cell count, BMP was remarkable for a BUN of 28, x- rays of the right knee revealed severe tricompartmental osteoarthrosis with large suprapatellar effusion. Patient was given morphine in the ER, he was placed in observation status on MedSurg 3 and seen by PT and OT. He was seen in consultation by orthopedic surgery who performed a right knee aspiration, there is no evidence of a septic joint, fluid was consistent with a diagnosis of gout. Patient was approved to go to a group home facility for short-term rehab services. On 08/22/2022, patient was seen and examined: On examination he appeared his stated age, he was in no distress. Vital signs as documented. Skin warm and dry and without overt rashes. Neck without JVD, neck was supple, there is a presence of a permanent tracheostomy, thyroid was normal. Lungs clear bilaterally, normal air movement was noted. Heart exam notable for regular rhythm, normal sounds and absence of murmurs, rubs or gallops. Abdomen unremarkable and without evidence of organomegaly, masses, or abdominal aortic enlargement. Bowel sounds are present, abdomen is not distended. Extremities nonedematous, no cyanosis was noted, no clubbing was noted. Neuro: Cranial nerves II through XII are grossly intact, no focal motor deficits were noted, sensation to light touch and pinprick intact, motor exam 5/5 throughout. Psych: Patient is alert and oriented x3, he does not appear anxious or depressed, he does not appear agitate d. Patient was felt to be stable for discharge to group home facility on 08/22/2022. Weight / BMI Weight Weight: 90.5 kg Body Mass Index (BMI) 27.0 ABG / Lab / Microbiology Data Result Diagrams: 08/22/22 04:55 08/22/22 04:55 Laboratory: Laboratory Results - last 24 hr 08/22/22 04:55: WBC 11.5 H, RBC 3.50 L, Hgb 11.2 L, Hct 34.2 L, MCV 97.7 H, MCH 32.0, MCHC 32.7, RDW Std Deviation 46.0 H, RDW Coeff of [place] 12.9, Plt Count 246, MPV 10.4, Immature Gran % (Auto) 0.800, Neut % (Auto) 76.7 H, Lymph % (Auto) 10.9 L, [place] % (Auto) 8.7, Eos % (Auto) 2.4, Baso % (Auto) 0.5, Absolute Neuts (auto) 8.9 H, Absolute Lymphs (auto) 1.26, Nucleated RBC % 0 08/22/22 04:55: Sodium 131 L, Potassium 4.4, Chloride 98, Carbon Dioxide 29.0, Anion Gap 4 L, BUN 69 H, Creatinine 1.50 H, Estim Creat Clear Calc 40.24, Est GFR (MDRD) Af Amer 57 L, Est GFR (MDRD) Non-Af 47 L, BUN/Creatinine Ratio 46.0 H , Glucose 104, Calcium 8.7 Microbiology: Microbiology 08/22/22 10:25 Nasal Secretion SARS-CoV-2 Antigen (Rapid) - Final 08/18/22 18:15 Fluid - Synovial (joint) Gram Stain - Final 08/18/22 18:15 Fluid - Synovial (joint) Body Fluid Culture - Preliminary No growth-Final to follow 08/18/22 18:15 Fluid - Synovial (joint) Anaerobic Culture - Preliminary No growth in 48 hours. Meaningful Use Info Meaningful Use Diagnoses (Choose all that apply): None applicable Discharge Plan Admission Admit Date/Time: 08/18/22 17:06 Primary Reason for Your Visit: debility, right knee gouty pain Attending Provider: Misael Hay Primary Care Provider: Maninder Malcolm Consulting Providers: Nav Suggs ; Florence Sellers ; Jimmy Medina Discharge Orders/Prescriptions Prescriptions: New acetaminophen 325 mg Tablet 650 mg PO Q4H PRN PRN (Reason: Fever, pain 1-02/21) Qty: 0 0RF loperamide 2 mg Capsule 2 mg PO Q4H PRN PRN (Reason: LOOSE STOOLS) Qty: 0 0RF thiamine HCl (vitamin B1) [Vitamin B-1] 100 mg Tablet 100 mg PO DAILYCM Qty: 0 0RF carvedilol 3.125 mg Tablet 3.125 mg PO BIDCM Qty: 0 0RF pantoprazole 40 mg Tablet,Delayed Release (Dr/Ec) 40 mg PO DAILY Qty: 0 0RF indomethacin 25 mg Capsule 25 mg PO TIDCM Qty: 0 0RF budesonide 0.5 mg/2 mL Suspension For Nebulization 0.5 mg inhalation BID.RT Qty: 0 0RF folic acid 1 mg Tablet 1 mg PO DAILY@0800 Qty: 0 0RF dicyclomine 10 mg Capsule 20 mg PO Q6H PRN PRN (Reason: abdominal discomfort) Qty: 0 0RF alum-mag hydroxide-simeth [Mag-Al Plus Extra Strength] 400-400-40 mg/5 mL Suspension 30 ml PO Q6H PRN PRN (Reason: Gastric Burning) Qty: 0 0RF hydroxyzine pamoate 25 mg Capsule 50 mg PO Q4H PRN PRN (Reason: mild anxiety) Qty: 0 0RF Healthy Eyes 300 mcg-200 mg-27 mg-2 mg Tablet 1 cap PO BID Qty: 0 0RF menthol-zinc oxide [Calmoseptine] 0.44-20.6 % Ointment 1 applic topical BID Qty: 0 0RF Protocol: *Topical Application Instructions APPLICATION INSTRUCTIONS: BUTTOCKS allopurinol 100 mg tablet 100 mg PO DAILY Qty: 1 0RF tamsulosin 0.4 mg Capsule 0.4 mg PO DAILY Qty: 0 0RF Continued atorvastatin 80 mg tablet 80 mg PO QHS Label Comments: TAKE 1 TABLET BY MOUTH EVERY DAY albuterol sulfate 18 GM HFA aerosol inhaler 2 puff inhalation Q4H PRN (Reason: Sob &/Or Wheezing) Label Comments: COPD losartan 50 MG tablet 50 mg PO BID Qty: 60 0RF hydralazine 25 MG tablet 25 mg PO TID Qty: 90 0RF amlodipine 10 MG tablet 10 mg PO DAILY Qty: 30 0RF furosemide 40 MG tablet 40 mg PO DAILY Qty: 30 0RF menthol-zinc oxide 1 APPLIC ointment 1 applic topical TID Protocol: *Topical Application Instructions APPLICATION INSTRUCTIONS: Apply to affected area of buttocks docusate sodium [Colace] 100 mg capsule 100 mg PO BID Qty: 20 0RF polyethylene glycol 3350 [Miralax] 17 gram powder in packet 17 g PO DAILY Qty: 100 1RF multivitamin Tablet 1 tab PO DAILY bupropion HCl 75 mg tablet 75 mg PO BID Label Comments: TAKE 1 TABLET BY MOUTH TWICE A DAY Discontinued albuterol sulfate 2.5 mg /3 mL (0.083 %) solution for nebulization 2.5 mg INHALATION Q4H PRN (Reason: Sob &/Or Wheezing) Label Comments: USE 3 ML VIA NEBULIZER EVERY 4 HOURS NEEDED Referrals / Follow Up: Maninder Malcolm, PA [Primary Care Provider] - Within 2 Weeks Disposition Disposition (needs filled in before D/C Order can be placed): Detention Fa cility Charges/Coding Visit Charges Inpatient E&M: 98599 Disch Hosp >30min
--- NOTE | 2022-08-22 12:23 | PHA.DC.MR ---
Pharmacy Service has performed discharge medication reconciliation for this patient. The patient's discharge medication list was reviewed for discrepancies and discrepancies were resolved. Home Medications albuterol sulfate 90 mcg/actuation aerosol inhaler 2 puff inhalation Q4H PRN Sob &/Or Wheezing 08/18/16 atorvastatin 80 mg tablet 80 mg PO QHS heart 11/27/19 losartan 50 mg tablet 50 mg PO BID #60 tabs 12/01/19 amlodipine 10 mg tablet 10 mg PO DAILY #30 tabs 12/08/19 furosemide 40 mg tablet 40 mg PO DAILY #30 tabs 12/08/19 hydralazine 25 mg tablet 25 mg PO TID #90 tabs 12/08/19 menthol 0.44 %-zinc oxide 20.6 % topical ointment 1 applic topical TID redness 12/08/19 docusate sodium 100 mg capsule (Colace) 100 mg PO BID #20 caps 06/26/22 polyethylene glycol 3350 17 gram oral powder packet (Miralax) 17 g PO DAILY #100 ea 06/29/22 bupropion HCl 75 mg tablet 75 mg PO BID DEPRESSION 08/18/22 multivitamin 1 tab PO DAILY REPLACEMENT 08/18/22 acetaminophen 325 mg tablet 650 mg PO Q4H PRN PRN Fever, pain 1-02/21 #0 tabs 08/19/22 allopurinol 100 mg tablet 100 mg PO DAILY #1 TAB 08/19/22 aluminum-mag hydroxide-simethicone 400 mg-400 mg-40 mg/5 mL oral susp (Mag-Al Plus Extra Strength) 30 ml PO Q6H PRN PRN Gastric Burning #0 mL 08/19/22 budesonide 0.5 mg/2 mL suspension for nebulization 0.5 mg (2 mL) inhalation BID.RT #0 mL 08/19/22 carvedilol 3.125 mg tablet 3.125 mg PO BIDCM #0 tabs 08/19/22 dicyclomine 10 mg capsule 20 mg PO Q6H PRN PRN abdominal discomfort #0 caps 08/19/22 folic acid 1 mg tablet 1 mg PO DAILY@0800 #0 tabs 08/19/22 hydroxyzine pamoate 25 mg capsule 50 mg PO Q4H PRN PRN mild anxiety #0 caps 08/19/22 indomethacin 25 mg capsule 25 mg PO TIDCM #0 caps 08/19/22 loperamide 2 mg capsule 2 mg PO Q4H PRN PRN LOOSE STOOLS #0 caps 08/19/22 menthol 0.44 %-zinc oxide 20.6 % topical ointment (Calmoseptine) 1 applic topical BID #0 grams 08/19/22 pantoprazole 40 mg tablet,delayed release 40 mg PO DAILY #0 tabs 08/19/22 thiamine HCl (vitamin B1) 100 mg tablet (Vitamin B-1) 100 mg PO DAILYCM #0 tabs 08/19/22 vit A 300 mcg-C 200 mg-E 27 mg-lutein 2 mg and minerals tablet (Healthy Eyes) 1 cap PO BID #0 tabs 08/19/22 tamsulosin 0.4 mg capsule 0.4 mg PO DAILY #0 caps 08/22/22
--- NOTE | 2022-08-22 12:50 | NURSING ---
report given to Edyta at [facility]
== END 2022-08-22 14:13 | disposition skilled nursing facility (03) ==
LOC: ED 17:24 → MS3 17:42
PROVIDERS: Internal Medicine; Admitting Provider Family Medicine; Emergency Provider Emergency Medicine; PCP Physician Assistant; Referring Provider Emergency Medicine; Visit Provider Internal Medicine
DX: M25.461 Effusion, right knee (principal); Z93.0 Tracheostomy status; J44.9 Chronic obstructive pulmonary disease, unspecified; I11.0 Hypertensive heart disease with heart failure; I50.32 Chronic diastolic (congestive) heart failure; I27.21 Secondary pulmonary arterial hypertension; F10.20 Alcohol dependence, uncomplicated; I73.9 Peripheral vascular disease, unspecified; I48.0 Paroxysmal atrial fibrillation; R53.81 Other malaise; F41.9 Anxiety disorder, unspecified; I25.10 Atherosclerotic heart disease of native coronary artery without angina pectoris; Z87.891 Personal history of nicotine dependence; E78.5 Hyperlipidemia, unspecified; M10.061 Idiopathic gout, right knee; Z79.82 Long term (current) use of aspirin; R33.8 Other retention of urine; Z79.899 Other long term (current) drug therapy; N40.1 Benign prostatic hyperplasia with lower urinary tract symptoms; F32.A Depression, unspecified; Z85.21 Personal history of malignant neoplasm of larynx; H54.7 Unspecified visual loss
CPT/HCPCS: 20610; 36415; 71045; 73564; 80048; 80053; 81001; 82945; 83735; 84100; 84145; 84484; 84550; 85025; 85652; 86140; 87070; 87075; 87205; 87426; 89050; 89051; 89060; 93005; 94640; 96374; 96375; 96376; 97110; 97116; 97162; 97166; 97530; 99221; 99285; J7030; A4216; G0378; J2405

== ENCOUNTER 2022-08-30 22:30 | Inpatient (IN) | payer MEDICARE, BC, SELFPAY ==
--- NOTE | 2022-08-30 22:51 | HP.PCM_ITS ---
HPI - General General Date of Admission: 08/30/22 Date of Service: 08/30/22 Chief Complaint: Dyspnea, hypoxia at OSH ED. HPI Narrative The patient is an 82 y/o M w/ PMHx: Chronic AF, CKD stage III unclear subtype, Nonobstructive CAD, HTN, HLD, Anxiety and Depression, AAA s/p repair following with Vascular, COPD, BPH, Carotid disease, Hx Laryngeal cancer, Chronic Diastolic CHF, Former EtOH abuse, recent admission 08/18/22-08/22/22 following treatment for intractable R knee pain with notable effusion drained per Orthopedic surgery and fluid presentation c/w acute gout flare who now presents to the OSH ED [facility] on 08/30/22 secondary to history of increased fatigue, increased secretions, dyspnea worse with exertion with no recent fever or chills but family concerned thus prompted ED presentation with requested and eventual transfer 08/30/22 to [facility] as direct admission. At the outside facility initial work-up not concerning however some concern for increased secretions at stoma tracheostomy site therefore ENT at outside facility was consulted and did evaluate patient with concern for trauma secondary to aggressive suctioning with plan at that point for potential placement on Levaquin and discharge however patient became significantly agitated, hypoxic eventually requiring trach placement and ventilated status with sedation. ED physician did report that he gave Ativan a total of 2 doses initially when he presented given his alcohol use history currently on an unclear exact amount of vodka 3 times daily at skilled as well as another dose 2 hours prior to current presentation and this was around the time he did become agitated of note. Once patient was stabilized from a respiratory standpoint CT chest/abdomen and pelvis was obtained and as noted concerning for multifocal pneumonia. Additional outside facility work-up included: Initial VS: T 98.1, HR 58, RR 32, BP 149/68, 94% on RA Current VS: BP 114/91, HR 65, 97% FiO2 30% Trach in place Medications: Proprofol drip, Rocephin, Ativan, 1L NS (over an 8-hour period), Ativan x2 unclear exact dose Consultation w/ ENT evaluation during presentation, concern for trauma with suctioning, planned initially to place on Levaquin, bagged and trach placed. EKG AF rate controlled without acute evidence of ischemia Bld Cx x 2 pending per ED BNP, CMP, CBC repeat all pending upon requested transfer Requested COVID PCR be obtained Requested that patient be initiated on broad-spectrum antibiotic therapy with IV vancomycin and IV Zosyn given recent 4-day hospitalization and significant findings on CT Additional labs and imaging include: ABG with pH 7.44, PCO2 38, PO2 65, bicarb 26, saturation 93, SPO2 93, lactate 0.9, initial troponin 4.2 with repeat delta troponin 4.5, CMP with sodium 128, potassium 4.6, chloride 93, CO2 26.7, glucose 108, BUN/creatinine 30/1.37, alk phos 143, AST/ALT 31/24, hepatic profile otherwise not marked appearing, CBC with WC 13.6, hemoglobin 10.1, MCV 93, platelet 210 with left shift and lymphopenia, urinalysis with cloudy appearing urine, pH 6, protein 100, urobilinogen 4, specific gravity 1.015, nitrite negative, leukocyte esterase 500, urine WBCs 11-15 with 1+ urine bacteria, CT chest/abdomen/pelvis without contrast obtained with noted emphysematous changes, secretions in the trachea, multifocal ill-defined nodular opacities in the inferior right upper lobe, middle lobe, right lower lobe, left lower lobe and inferior left upper lobe consistent with multifocal infiltrates, small bilateral pleural effusions and associated compressive atelectasis, extensive atherosclerotic disease, irregularity at the peripheral surface of the aorta is concerning for penetrating atherosclerotic ulcer with bilateral femoral aneurysms, underdistention versus thickening of the rectosigmoid colon, indeterminant pericolonic fat at the right lower quadrant possibly representing scar versus intraperitoneal fat focal infarct. [facility] Medical History Abdominal aortic aneurysm (AAA) Acute on chronic diastolic (congestive) heart failure (12/06/19) Alcohol abuse Alcohol dependence Anxiety and depression Watkins's cyst of knee Bilateral carotid artery stenosis BPH (benign prostatic hyperplasia) Carotid artery bruit Chest pain Chronic atrial fibrillation Chronic right shoulder pain Claudication COPD (chronic obstructive pulmonary disease) Cough Dehydration DVT (deep venous thrombosis) Erectile dysfunction Essential hypertension Former smoker Frequent falls Gout History of laryngeal cancer History of left heart catheterization (05/2004) History of myocardial infarction History of nephrolithiasis HLD (hyperlipidemia) Hyperkalemia Hypertension Hypertensive emergency (12/06/19) Hypomagnesemia Hyponatremia Insomnia MSSA (methicillin susceptible Staphylococcus aureus) infection Near syncope Nonobstructive atherosclerosis of coronary artery Panlobular emphysema Peripheral vascular occlusive disease Rheumatoid arthritis Secondary pulmonary arterial hypertension SOB (shortness of breath) Stroke/cerebrovascular accident Thrombocytopenia TIA (transient ischemic attack) Vitreous hemorrhage of right eye Home Medications albuterol sulfate 90 mcg/actuation aerosol inhaler 2 puff inhalation Q4H PRN Sob &/Or Wheezing 08/18/16 [History Last Taken 12/05/19] atorvastatin 80 mg tablet 80 mg PO QHS heart 11/27/19 [History Last Taken 12/06/19] losartan 50 mg tablet 50 mg PO BID #60 tabs 12/01/19 [Rx Last Taken 12/06/19] amlodipine 10 mg tablet 10 mg PO DAILY #30 tabs 12/08/19 [Rx Last Taken Unknown] furosemide 40 mg tablet 40 mg PO DAILY #30 tabs 12/08/19 [Rx Last Taken Unknown] hydralazine 25 mg tablet 25 mg PO TID #90 tabs 12/08/19 [Rx Last Taken Unknown] menthol 0.44 %-zinc oxide 20.6 % topical ointment 1 applic topical TID redness 12/08/19 [History Last Taken Unknown] docusate sodium 100 mg capsule (Colace) 100 mg PO BID #20 caps 06/26/22 [Rx Last Taken Unknown] polyethylene glycol 3350 17 gram oral powder packet (Miralax) 17 g PO DAILY #100 ea 06/29/22 [Rx Last Taken Unknown] bupropion HCl 75 mg tablet 75 mg PO BID DEPRESSION 08/18/22 [History Last Taken Unknown] multivitamin 1 tab PO DAILY REPLACEMENT 08/18/22 [History Last Taken Unknown] acetaminophen 325 mg tablet 650 mg PO Q4H PRN PRN Fever, pain 1-02/21 #0 tabs 08/19/22 [Rx Last Taken Unknown] allopurinol 100 mg tablet 100 mg PO DAILY #1 TAB 08/19/22 [Rx Last Taken Unknown] aluminum-mag hydroxide-simethicone 400 mg-400 mg-40 mg/5 mL oral susp (Mag-Al Plus Extra Strength) 30 ml PO Q6H PRN PRN Gastric Burning #0 mL 08/19/22 [Rx Last Taken Unknown] budesonide 0.5 mg/2 mL suspension for nebulization 0.5 mg (2 mL) inhalation BID.RT #0 mL 08/19/22 [Rx Last Taken Unknown] carvedilol 3.125 mg tablet 3.125 mg PO BIDCM #0 tabs 08/19/22 [Rx Last Taken Unknown] dicyclomine 10 mg capsule 20 mg PO Q6H PRN PRN abdominal discomfort #0 caps 08/19/22 [Rx Last Taken Unknown] folic acid 1 mg tablet 1 mg PO DAILY@0800 #0 tabs 08/19/22 [Rx Last Taken Unknown] hydroxyzine pamoate 25 mg capsule 50 mg PO Q4H PRN PRN mild anxiety #0 caps 08/19/22 [Rx Last Taken Unknown] indomethacin 25 mg capsule 25 mg PO TIDCM #0 caps 08/19/22 [Rx Last Taken Unknown] loperamide 2 mg capsule 2 mg PO Q4H PRN PRN LOOSE STOOLS #0 caps 08/19/22 [Rx Last Taken Unknown] menthol 0.44 %-zinc oxide 20.6 % topical ointment (Calmoseptine) 1 applic topical BID #0 grams 08/19/22 [Rx Last Taken Unknown] pantoprazole 40 mg tablet,delayed release 40 mg PO DAILY #0 tabs 08/19/22 [Rx Last Taken Unknown] thiamine HCl (vitamin B1) 100 mg tablet (Vitamin B-1) 100 mg PO DAILYCM #0 tabs 08/19/22 [Rx Last Taken Unknown] vit A 300 mcg-C 200 mg-E 27 mg-lutein 2 mg and minerals tablet (Healthy Eyes) 1 cap PO BID #0 tabs 08/19/22 [Rx Last Taken Unknown] tamsulosin 0.4 mg capsule 0.4 mg PO DAILY #0 caps 08/22/22 [Rx Last Taken Unknown] Allergy/AdvReac Type Severity Reaction Status Date / Time iodine Allergy Intermediate Unknown Verified 08/18/22 19:30 Family History Father , 67 Cancer lung Sister , 59 Myocardial infarction Mother , 58 Cancer Pulmonary embolus Brother Cancer throat Surgical History History of abdominal aortic aneurysm repair (06/20/04) History of appendectomy History of tracheostomy Social History household members: none Smoking Status: Former smoker alcohol intake: former details: Current 08/18/22 admission notes 2 weeks sobriety, prior heavy vodka daily. substance use type: does not use ROS Review of Systems ROS Unobtainable: due to endotracheal tube Physical Exam Narrative Physical Examination: General: Sedated, trach in place, not alert, not oriented but is mildly responsive as per below been decreased, laying in the ICU bed, no obvious distress, heart rate in the 40s, stable BP. Skin: Normal color, normal turgor, no icterus, no cyanosis except occasional staged ecchymoses, mild stasis changes to bilateral epstein, small left lateral ankle abrasion as well as right plantar foot callused quarter sized region with no drainage or erythema. HEENT: AT/NC, EOM unable to be assessed given sedated intubated status, MMM, notable significant increased oral secretions, trach in place in the stoma, no carotid bruits or JVD noted but difficult assessment. Lungs: CTA bilaterally, moderate effort, mild decrease BL bases, no rales, ronchi or wheezing. Heart: Irregular rhythm, bradycardic; no gallop, rub audible. Abdomen: Soft, overweight, no obvious grimacing with abdominal palpation, no obvious distention, hyperactive bowel sounds, no obvious HSM. Extremities: No cyanosis, no clubbing, see skin, bilateral pedal pitting edema but nothing more proximal. Neurological: Sedated, trach in place, not alert, not oriented but is mildly responsive as per below been decreased, laying in the ICU bed, no obvious distress, cognitive function not baseline intact; pupils equally reactive to light and accommodation, cranial nerves unable to be assessed well given intubated and sedated status, strength accordingly severely globally decreased. Psychiatric: Affect appears normal, no acute evidence of depressive or anxiety feelings. Assessment & Plan Assessment/Plan (1) Respiratory failure: PLAN: Plan The patient is an 82 y/o M w/ PMHx: Chronic AF, CKD stage III unclear subtype, Nonobstructive CAD, HTN, HLD, Anxiety and Depression, AAA s/p repair following with Vascular, COPD, BPH, Carotid disease, Hx Laryngeal cancer, Chronic Diastolic CHF, Former EtOH abuse, recent admission 08/18/22-08/22/22 following treatment for intractable R knee pain with notable effusion drained per Orthopedic surgery and fluid presentation c/w acute gout flare who now presents to the OSH ED [facility] on 08/30/22 secondary to history of increased fatigue, increased secretions, dyspnea worse with exertion with no recent fever or chills but family concerned thus prompted ED presentation eventually decompensating, requiring tracheostomy placement and ventilation with CT C/A/P with evidence multifocal PNA and transfer to [facility] 08/30/22. #1. Acute Hypoxic Respiratory Failure secondary to Multifocal Pneumonia: Will admit to ICU, will continue trach and insert recently placed with ENT evaluation at [facility] in the emergency room, initiate ICU physician consultation, continue ventilated status, continue propofol and add fentanyl, continue ATC budesonide therapy, PRN albuterol, maintained on IV Zosyn and Vancomycin with pending MRSA screen, HOB, IS parameters w/ pending sputum cultures, full respiratory viral panel and urine antigens. Bld cx x 2 obtained in the ED. #2. EtOH Abuse, previously during recent presentation at [facility] had been sober: SNF per discussions with outside facility ED for unclear reasons administering vodka 3x/daily, currently as noted maintained on propofol, once appropriate may transition to CIWA and also may consider usage of phenobarbital if necessary, maintain on multivitamin, thiamine and folic acid. Will obtain mag and phos levels. #3. Chronic atrial fibrillation: Appears rate consult at outside facility, continue Coreg with low threshold to hold if pressures decrease. #4. Nonobstructive CAD: We will continue patient aspirin, statin, Coreg, losartan home regimen. #5. Chronic COPD: Patient not on chronic inhalers, given presentation we will maintain on ATC budesonide therapy, as needed albuterol and continue treatment as noted #1. #6. Chronic diastolic CHF: We will continue aspirin, statin, losartan, Lasix, hydralazine as BP allows, only administered 1 L normal saline over 8-hour. At goal pulmonary in ED, BNP is pending upon requested transition of patient [facility] of note. Last noted echo 12/06/2019 with EF 65%, moderately dilated RV, mild global RV systolic dysfunction, severely enlarged LA and RA, mild MVI, mild to moderate TVI, RVSP 57 mmHg, moderate pulmonary hypertension, trivial AV insufficiency. Temporarily holding patient beta- tory therapy as heart rate in the 40s, add back once heart rate appropriate.. #7. Anxiety and depression: Continue patient home bupropion regimen. #8. Carotid disease: We will continue aspirin, statin, hypertensive regimen as noted with low threshold to hold given presentation #1, no diabetic history. #9. Hypertension: Continue home regimen including hydralazine, Lasix, amlodipine, losartan with hold parameters as needed, PRN hydralazine. Temporarily holding beta-tory therapy as heart rate in the 40s, add back once appropriate. #10. Hyperlipidemia: We will continue patient home statin therapy. #11. History of AAA: Patient status post AAA repair 2004, irregularity at the peripheral surface of the aorta is concerning for penetrating atherosclerotic ulcer with bilateral femoral aneurysms,encourage continued outpatient follow-up with vascular surgery as previously arranged. #12. History laryngeal cancer: s/p resection and XRT, considered in remission, ENT consultation in the ED at outside ED as noted with tracheostomy placement given concern for respiratory decompensation and eventual ventilated status as noted #1. #13. Former tobacco use: Encourage continued tobacco cessation. #14. BPH: From current list not on any chronic regimen, monitor for symptoms and may add if necessary. #15. Chronic Kidney Disease Stage III, unclear subtype: Admission BUN/Cr 30/1.37, baseline renal function appears primarily 1.3-1.5, stay, repeat BMP in AM. #16. DVT prophylaxis: Lovenox. #17. CODE status: Patient during prior presentation did not have healthcare power of parts professional nor living will in place however he had reported that if he could not make decisions he wanted his daughter to be his medical decision- maker. During prior admission he had confirmed full CODE STATUS and discussed this with outside facility ED physician and he confirmed that family and patient continued a full CODE STATUS also at the facility. Admission Evaluation Time spent evaluating chart, patient history, patient evaluation, care planning and discussion with specialists: 75 minutes. Charges/Coding Visit Charges Inpatient E&M: 45747 Init Hosp L3
[2022-08-30 23:00] VITALS: BP 128/64; PULSE 55; RESP 16; TEMP 36.1; O2SAT 100
[2022-08-30 23:11] VITALS: PULSE 49; RESP 14; O2SAT 100
[2022-08-30 23:15] VITALS: BP 118/65; PULSE 52; RESP 24; O2SAT 99
[2022-08-30 23:30] VITALS: BP 126/52; PULSE 47; RESP 14; O2SAT 100
[2022-08-30] MEDS: Propofol 10MG/Ml 1,000 MG/100 ML Bottle 5.7 MG CONT INF (23:30)
[2022-08-30 23:31] VITALS: BMI 28.5
[2022-08-30 23:45] VITALS: BP 98/50; PULSE 47; RESP 14; O2SAT 94
[2022-08-30] MEDS: 0.9% Saline Lock 10 ML Syringe IV (23:54)
[2022-08-30] MEDS: 0.9% Normal Saline 1,000 ML 75 ML IV (23:56)
[2022-08-31] VITALS (37 sets, daily range): BP systolic 90–128; BP diastolic 45–67; PULSE 39–72; RESP 14–15; TEMP 35.6–37.2; O2SAT 96–100; BMI 27.7
[2022-08-31 00:05] LABS: Base Excess -2 mmol/L (-2 to +2); Bicarbonate 23.6 mmol/L (22-26); Blood Gas Specimen Type ART; FI02 30; Mode AC; O2 Delivery Device Adult Vent; PEEP 5; PO2 70 mmHG (75-100); RR 14; SITE L Radial; SO2 93 % (95-99); Total Carbon Dioxide 25 mmol/L; Vt 550; pCO2 41.5 mmHg (35-45); pH 7.36 (7.35-7.45)
[2022-08-31 00:22] LABS: Procalcitonin 0.05 ng/mL (0.00-0.09)
[2022-08-31 00:30] LABS: Magnesium 1.7 mg/dL (1.6-2.6); Phosphorus 4.8 mg/dL (2.5-4.9); Triglycerides 723 mg/dL
[2022-08-31 00:31] LABS: CPK Total, Creatine Kinase 151 U/L (39-308); Troponin-I HS 8 pg/mL (3.0-78.0)
[2022-08-31 01:47] LABS: M R Staph aureus DNA By PCR Negative (Negative); Probe Check PASS; Specimen Processing Control PASS
[2022-08-31] MEDS: Propofol 10MG/Ml 1,000 MG/100 ML Bottle 23 MG CONT INF (03:05)
[2022-08-31 04:16] LABS: Absolute Lymphocyte Count 0.83 X10^3/uL (0.83-4.51); Absolute Neutrophil Count 8.8 X10^3/uL (2.0-7.7); Basophil# 0.02 X10^3/uL; Basophil% 0.2 % (0-1); Eosinophil# 0.11 X10^3/uL; Hematocrit 24.2 % (40-54); Hemoglobin 8.3 g/dL (13.0-16.5); Lymphocyte # 0.83 X10^3/ul (0.83-4.51); Lymphocyte % 7.8 % (19-41); Mean Corp Hgb Conc 34.3 g/dL (32-36); Mean Corpuscular Hgb 32.3 pg (27.0-32.0); Mean Corpuscular Volume 94.2 fL (80-94); Mean Platelet Vol. 10.6 fl (6.2-12.0); Monocyte# 0.79 X10^3/uL; Monocyte% 7.4 % (0-10); NRBC Flagged by Analyzer 0 % (0-5); Neutrophil # 8.83 X10^3/uL (2.7-7.7); Neutrophil % 83.1 % (47-70); Platelet Count 164 K/mm3 (150-450); RBC Distribution Width CV 13.3 % (11.6-14.6); RBC Distribution Width SD 46.1 fl (35.1-43.9); Red Blood Count 2.57 M/mm3 (4.6-6.2); White Blood Count 10.6 K/mm3 (4.4-11.0)
[2022-08-31 04:35] LABS: ALB/GLOB Ratio 0.6 RATIO (0.9-2.4); AST(SGOT) 21 U/L (15-37); Alanine Aminotransfer ALT/SGPT 17 U/L (16-61); Alkaline Phosphatase 110 U/L (45-117); Anion Gap 5 (5-15); BUN 29 mg/dL (7-18); BUN/Creat Ratio 24.6 RATIO (10-20); Calcium,Total 8.2 mg/dL (8.5-10.1); Chloride 100 mmol/L (98-107); Creatinine, Serum 1.18 mg/dL (0.70-1.30); EST Glomerular Filtration Rate 62 mL/min (>60); Est Glom Filt Rate - Afr Amer 76 mL/min (>60); Estimated Creatinine Clearance 51.15 ml/min; Globulin 3.5 g/dL (2.2-4.2); Glucose 85 mg/dL (74-106); Potassium 3.6 mmol/L (3.5-5.1); Protein, Total 5.5 g/dL (6.4-8.2); Sodium Level 130 mmol/L (136-145)
--- NOTE | 2022-08-31 04:50 | RAD_ITS ---
EXAM: XR ABDOMEN, 1 VIEW CLINICAL INDICATION: Confirm OG placement -- Prior to admin of any med,fluid,flush,enteral feed TECHNIQUE: Frontal supine view of the abdomen/pelvis. This report was created using [employer] report generation technology. COMPARISON: Chest radiograph August 18, 2022. FINDINGS: LOWER THORAX: Left greater than right pleural effusions are suspected. Nonvisualized appearance of both hemidiaphragms, especially on the left. Suspicion of upper limits of normal heart size. GASTROINTESTINAL TRACT: Unremarkable. Non-obstructive. No bowel or stomach distention. ORGANS: Unremarkable as visualized. No organomegaly. No abnormal calcifications. BONES/JOINTS: Impression deformities of L2 and to a lesser extent L3-L5. SOFT TISSUES: No acute pathology. VASCULATURE: Surgical clips in the left paramedian lower abdomen. Marked calcifications of femoral artery regions. TUBES, LINES AND DEVICES: Enteric tube tip in the proximal stomach, estimated to be below the left hemidiaphragm left diaphragm is obscured by adjacent opacity. RAD/Abdomen Single View (Portable) IMPRESSION: 1. Enteric tube tip appears to be at least within the stomach, left hemidiaphragm is not well seen due to adjacent basilar opacity. 2. Postoperative changes. Prominent colon gas in what appears to be transverse colon. No dilated small bowel loops. 3. Bibasilar effusions. Electronically Signed: Emily Salas MD at 5:45 EDT ,
--- NOTE | 2022-08-31 04:50 | PCM.RX.CS ---
Consult Pharmacy has been consulted to manage selected antiobiotic: Vancomycin Type of Consult: New start Suspected Infection: Pneumonia Prior Doses of Antibiotics Received/Current Regimen: Medications Vancomycin HCl 2,000 mg/ (Sodium Chloride) 540 mls @ 250 mls/hr IV X1 ONE Stop: 08/31/22 06:09 Last Admin: 08/31/22 04:16 Dose: 250 mls/hr Vancomycin HCl 750 mg/ Sodium (Chloride) 265 mls @ 250 mls/hr IV Q12H EDOUARD Labs: Sodium 130 mmol/L (136-145) L 08/31/22 04:00 Potassium 3.6 mmol/L (3.5-5.1) 08/31/22 04:00 Chloride 100 mmol/L (98-107) 08/31/22 04:00 Carbon Dioxide 25.0 mmol/L (21.0-32.0) 08/31/22 04:00 Anion Gap 5 (5-15) 08/31/22 04:00 BUN 29 mg/dL (7-18) H 08/31/22 04:00 Creatinine 1.18 mg/dL (0.70-1.30) 08/31/22 04:00 Est GFR (MDRD) Af Amer 76 mL/min (>60) 08/31/22 04:00 Est GFR (MDRD) Non-Af 62 mL/min (>60) 08/31/22 04:00 BUN/Creatinine Ratio 24.6 RATIO (10-20) H 08/31/22 04:00 Glucose 85 mg/dL (74-106) 08/31/22 04:00 Microbiology: Microbiology 08/30/22 23:41 Mucosa - Nasopharyngeal Respiratory Panel (PCR) - Final 08/30/22 23:35 Urine Catheter - Catheter Legionella Antigen - Final 08/30/22 23:35 Urine Catheter - Catheter Streptococcus pneumoniae Antigen (M - Final Weight used for dosin.7 kg Estimated Creatinine Clearance: 48.1 Goal Trough: 15-20 mcg/mL Pharmacy Plan for Drug Dosing: Pt came as a transfer from other hospital. Had initiated a vancomycin IV during transit, but had trouble with the infusion. Negligible amount infused, so a loading dose was given here later in the a.m. A continuing dose of 750mg q12h will be started, and a trough to be drawn prior to fourth total dose. Pharmacy Service will continue to monitor and adjust dosing as required. Follow-Up Labs: Trough Vancomycin Labs to be done on [date and time ordered]: 09/01/22 @1600
[2022-08-31] MEDS: Budesonide Respules 0.5 MG/2 ML AMPUL.NEB. INHALATION ×2 (06:45→19:03)
[2022-08-31] MEDS: TITRATION PARAMETER CHANGE 1 EACH IV (06:49)
[2022-08-31] MEDS: Propofol 10MG/Ml 1,000 MG/100 ML Bottle 16.7 MG CONT INF (06:49)
[2022-08-31] MEDS: hydrALAZINE 25 MG Tablet PO ×3 (06:50→20:27)
--- NOTE | 2022-08-31 07:07 | PCM.PN.HOSP ---
Reason for Visit Reason for Visit: Diagnoses Respiratory failure, unspecified, unspecified whether with hypoxia or hypercapnia (08/30/22) Subjective Subjective Daughters state that while patient was at the SNF, he was receiving 3 shots of vodka/day. Still on vent. Objective Data Objective Data Vital Signs: Vital Signs Temp Pulse Resp BP Pulse Ox O2 Del Method FiO2 37.1 C 44 L 14 104/52 L 100 Mechanical Ventilator 30 08/31/22 04:00 08/31/22 07:00 08/31/22 07:00 08/31/22 07:00 08/31/22 07:00 08/31/22 07:00 08/31/22 07:00 Oxygen Delivery Method Mechanical Ventilator Weight: 92.9 kg Body Mass Index (BMI) 27.7 Intake & Output: Intake and Output for Last 24 Hours 08/29/22 08/30/22 08/31/22 23:59 23:59 23:59 Intake Total 1.43 / 4.83 843.44 / 843.44 Output Total 900 / 900 Balance 1.43 / 4.83 -56.56 / -56.56 Lab / Micro Data Result Diagrams: 08/31/22 04:00 08/31/22 04:00 Labs: Laboratory Results - last 24 hr 08/30/22 23:35: Phosphorus 4.8, Magnesium 1.7, Triglycerides 723 H 08/30/22 23:35: Procalcitonin 0.05 08/30/22 23:35: MRSA (PCR) Negative 08/30/22 23:35: Total Creatine Kinase 151 08/30/22 23:35: Troponin I High Sens 8 08/31/22 04:00: WBC 10.6, RBC 2.57 L, Hgb 8.3 L, Hct 24.2 L, MCV 94.2 H, MCH 32.3 H, MCHC 34.3, RDW Std Deviation 46.1 H, RDW Coeff of [place] 13.3, Plt Count 164, MPV 10.6, Immature Gran % (Auto) 0.500, Neut % (Auto) 83.1 H, Lymph % (Auto) 7.8 L, [place] % (Auto) 7.4, Eos % (Auto) 1.0, Baso % (Auto) 0.2, Absolute Neuts (auto) 8.8 H, Absolute Lymphs (auto) 0.83, Nucleated RBC % 0 08/31/22 04:00: Sodium 130 L, Potassium 3.6, Chloride 100, Carbon Dioxide 25.0, Anion Gap 5, BUN 29 H, Creatinine 1.18, Estim Creat Clear Calc 51.15, Est GFR (MDRD) Af Amer 76, Est GFR (MDRD) Non-Af 62, BUN/Creatinine Ratio 24.6 H, Glucose 85, Calcium 8.2 L, Total Bilirubin 0.70, AST 21, ALT 17, Alkaline Phosphatase 110, Total Protein 5.5 L, Albumin 2.0 L, Globulin 3.5, Albumin/Globulin Ratio 0.6 L Micro: Microbiology 08/30/22 23:41 Mucosa - Nasopharyngeal Respiratory Panel (PCR) - Final 08/30/22 23:35 Urine Catheter - Catheter Legionella Antigen - Final 08/30/22 23:35 Urine Catheter - Catheter Streptococcus pneumoniae Antigen (M - Final ABG Data ABG results: ABG 08/30/22 23:58 Specimen Type ART Sample Site L Radial pH 7.36 Bicarbonate Actual 23.6 Total CO2 25 Base Excess -2 O2 Saturation 93 L O2 % 30 ABG pCO2 41.5 ABG pO2 70 L Dougie Test N/A Respiration Rate 14 O2 Delivery Device Adult Vent Vent Mode AC Tidal Volume 550 POC PEEP 5 Radiography Diagnostic Testing: Radiology Impression KUB X-Ray 08/31/22 04:50 IMPRESSION: 1. Enteric tube tip appears to be at least within the stomach, left hemidiaphragm is not well seen due to adjacent basilar opacity. 2. Postoperative changes. Prominent colon gas in what appears to be transverse colon. No dilated small bowel loops. 3. Bibasilar effusions. Electronically Signed: Emily Salas MD at 5:45 EDT , Physical Exam Const Constitutional Narrative: intubated. sedated. Resp normal respiratory effort and no retractions Cardio regular rate, regular rhythm, S1 normal heart sound and S2 normal heart sound GI normal to inspection, nondistended, normoactive bowel sounds, soft to palpation, non-tender and non-distended Assessment & Plan Assessment/Plan (1) Respiratory failure: QUALIFIERS: Chronicity: acute Respiratory failure complication: hypoxia Qualified Code(s): J96.01 - Acute respiratory failure with hypoxia PLAN: Acute Hypoxic Respiratory Failure secondary to Multifocal Pneumonia, COPD Continue trach and insert recently placed with ENT evaluation at [facility] in the emergency room, ICU physician consultation, continue ventilated status, continue propofol and add fentanyl, continue ATC budesonide therapy, PRN albuterol, maintained on IV Zosyn and Vancomycin with pending MRSA screen, HOB, IS parameters w/ pending sputum cultures, full respiratory viral panel and urine antigens. Bld cx x 2 obtained in the ED. (2) Pneumonia: PLAN: Suspect gram negative on vanc and pip/tazo Strep and legionella negative follow up SCx PLAN: Plan The patient is an 82 y/o M w/ PMHx: Chronic AF, CKD stage III unclear subtype, Nonobstructive CAD, HTN, HLD, Anxiety and Depression, AAA s/p repair following with Vascular, COPD, BPH, Carotid disease, Hx Laryngeal cancer, Chronic Diastolic CHF, Former EtOH abuse, recent admission 08/18/22-08/22/22 following treatment for intractable R knee pain with notable effusion drained per Orthopedic surgery and fluid presentation c/w acute gout flare who now presents to the OSH ED [facility] on 08/30/22 secondary to history of increased fatigue, increased secretions, dyspnea worse with exertion with no recent fever or chills but family concerned thus prompted ED presentation eventually decompensating, requiring tracheostomy placement and ventilation with CT C/A/P with evidence multifocal PNA and transfer to [facility] 08/30/22. Chronic conditions: EtOH Abuse, previously during recent presentation at [facility] had been sober: SNF per discussions with outside facility ED for unclear reasons administering vodka 3x/daily. DW daughters, I would suspect that he would not go through alcohol withdrawal. I explained that since he is currently sedated, relatively low quantity of alcohol he does use, the likelihood of alcohol withdrawal during this hospitalization. I told them also that it is unlikely I will give him alcohol during this admission. Chronic atrial fibrillation: Appears rate consult at outside facility, continue Coreg with low threshold to hold if pressures decrease. Nonobstructive CAD: We will continue patient aspirin, statin, Coreg, losartan home regimen. Chronic COPD: Patient not on chronic inhalers, given presentation we will maintain on ATC budesonide therapy, as needed albuterol and continue treatment as noted #1. Chronic HFpEF: We will continue aspirin, statin, losartan, Lasix, hydralazine as BP allows, Echo 12/06/2019 with EF 65%, Temporarily holding patient beta-tory therapy as heart rate in the 40s, add back once heart rate appropriate. Anxiety and depression: Continue patient home bupropion regimen. Hypertension: Continue home regimen including hydralazine, Lasix, amlodipine, losartan with hold parameters as needed, PRN hydralazine. Temporarily holding beta-tory therapy as heart rate in the 40s, add back once appropriate. Hyperlipidemia: continue patient home statin therapy. History of AAA: Patient status post AAA repair 2004, irregularity at the peripheral surface of the aorta is concerning for penetrating atherosclerotic ulcer with bilateral femoral aneurysms,encourage continued outpatient follow-up with vascular surgery as previously arranged. History laryngeal cancer: s/p resection and XRT, considered in remission, ENT consultation in the ED at outside ED as noted with tracheostomy placement given concern for respiratory decompensation and eventual ventilated status as noted #1. Former tobacco use: Encourage continued tobacco cessation. BPH: From current list not on any chronic regimen, monitor for symptoms and may add if necessary. Chronic Kidney Disease Stage III, unclear subtype: Admission BUN/Cr 30/1.37, baseline renal function appears primarily 1.3-1.5, stay, repeat BMP in AM. DVT prophylaxis: Lovenox. CODE status: Patient during prior presentation did not have healthcare power of marketing communications manager nor living will in place however he had reported that if he could not make decisions he wanted his daughter to be his medical decision-maker. During prior admission he had confirmed full CODE STATUS and discussed this with outside facility ED physician and he confirmed that family and patient continued a full CODE STATUS also at the facility. Charges/Coding Visit Charges Inpatient E&M: 49358 Subs Hosp L2
--- NOTE | 2022-08-31 07:09 | CON.PCM.CC_ITS ---
Assessment & Plan Assessment/Plan (1) Respiratory failure: QUALIFIERS: Chronicity: acute Respiratory failure complication: hypoxia Qualified Code(s): J96.01 - Acute respiratory failure with hypoxia (2) Pneumonia: PLAN: Plan RECOMMENDATIONS: 1. Continue assist-control mode mechanical ventilation. Wean FiO2 and PEEP for saturations greater than 90%. 2. Check BNP and procalcitonin. 3. Stop continuous IV fluids. 4. Continue scheduled bronchodilators. 5. Minimize propofol utilization given elevated triglycerides. 6. Monitor for signs of alcohol withdrawal. Continue thiamine and folic acid. 7. Continue empiric antimicrobials, pending finalized infectious work-up. 8. Continue appropriate ICU prophylaxis. IMPRESSIONS: 1. Acute hypoxemic respiratory failure Clinical concern for bilateral multifocal pneumonia as precipitating etiology for acute presentation, with associated mucous plugging. The patient continues to have significant secretions. Plan to continue aggressive bronchopulmonary hygiene along with empiric antimicrobials and scheduled bronchodilators. Continue assist-control mode of mechanical ventilation. Wean FiO2 and PEEP to maintain saturations at or above 90%. In light of the patient's elevated triglyceride level, recommend weaning of propofol. Check BNP and stop continuous IV fluids. 2. History of alcohol dependency The patient is apparently receiving vodka 3 times daily at his nursing facility. Recommend monitoring for any signs of alcohol withdrawal. Continue thiamine and folate as ordered. 3. History of atrial fibrillation/coronary artery disease/questionable COPD/hypertension/hyperlipidemia/AAA/history of laryngeal CA Complicates care, management, recovery and prognosis. Continue home medications as indicated. Recommend PT/OT evaluations, once medically stabilized. TIME: 38 minutes of critical care time, independent of procedures, was spent addressing the patient's acute hypoxemic respiratory failure secondary to multifocal pneumonia, review of all data and collaboration with the care team. HPI Consult Data Date of Consult: 09/01/22 HPI Narrative Reason for Consultation: Respiratory failure HPI Narrative: The patient is an 82-year-old male, with a history as outlined below, who presented as a transfer of care from an outside hospital with shortness of breath and hypoxemia. The patient has documented history of atrial fibrillation, coronary artery disease, chronic kidney disease, AAA, COPD, heart failure with preserved ejection fraction, alcohol dependency and history of laryngeal cancer. The patient had also been experiencing increasing secretions leading up to his hospitalization. There was apparent concern for suction trauma to the patient's stoma site and he was therefore evaluated by ENT at the outside facility, who ended up placing a cuffed Shiley trach. Outside hospital work-up, including CT chest/abdomen/pelvis, demonstrated bilateral emphysematous changes with retained secretions in the trachea and multifocal bilateral pneumonia. According to team members, the patient routinely receives 3 shots of vodka daily at his nursing facility. The patient was recently admitted to the hospital for 4 days and discharged on August 22, after being admitted with debility and right knee pain consistent with gout. The patient is currently afebrile and hemodynamically stable. He has been maintained on assist control mode mechanical ventilation with an FiO2 requirement of 30% and PEEP of 5. Cultures are currently pending. His last blood gas on assist control mode mechanical ventilation demonstrated a pH of 7.36 with a PCO2 of 41 and PO2 of 70. Sodium is low at 130 with a creatinine of 1.18. The patient remains on empiric antimicrobials, along with propofol and fentanyl for sedation. [facility] Medical History Abdominal aortic aneurysm (AAA) Acute on chronic diastolic (congestive) heart failure (12/06/19) Alcohol abuse Alcohol dependence Anxiety and depression Watkins's cyst of knee Bilateral carotid artery stenosis BPH (benign prostatic hyperplasia) Carotid artery bruit Chest pain Chronic atrial fibrillation Chronic right shoulder pain Claudication COPD (chronic obstructive pulmonary disease) Cough Dehydration DVT (deep venous thrombosis) Erectile dysfunction Essential hypertension Former smoker Frequent falls Gout History of laryngeal cancer History of left heart catheterization (05/2004) History of myocardial infarction History of nephrolithiasis HLD (hyperlipidemia) Hyperkalemia Hypertension Hypertensive emergency (12/06/19) Hypomagnesemia Hyponatremia Insomnia MSSA (methicillin susceptible Staphylococcus aureus) infection Near syncope Nonobstructive atherosclerosis of coronary artery Panlobular emphysema Peripheral vascular occlusive disease Rheumatoid arthritis Secondary pulmonary arterial hypertension SOB (shortness of breath) Stroke/cerebrovascular accident Thrombocytopenia TIA (transient ischemic attack) Vitreous hemorrhage of right eye Home Medications albuterol sulfate 90 mcg/actuation aerosol inhaler 2 puff inhalation Q4H PRN Sob &/Or Wheezing 08/18/16 [History Last Taken 12/05/19] atorvastatin 80 mg tablet 80 mg PO QHS heart 11/27/19 [History Last Taken 12/06/19] losartan 50 mg tablet 50 mg PO BID #60 tabs 12/01/19 [Rx Last Taken 12/06/19] amlodipine 10 mg tablet 10 mg PO DAILY #30 tabs 12/08/19 [Rx Last Taken Unknown] furosemide 40 mg tablet 40 mg PO DAILY #30 tabs 12/08/19 [Rx Last Taken Unknown] hydralazine 25 mg tablet 25 mg PO TID #90 tabs 12/08/19 [Rx Last Taken Unknown] menthol 0.44 %-zinc oxide 20.6 % topical ointment 1 applic topical TID redness 12/08/19 [History Last Taken Unknown] docusate sodium 100 mg capsule (Colace) 100 mg PO BID #20 caps 06/26/22 [Rx Last Taken Unknown] polyethylene glycol 3350 17 gram oral powder packet (Miralax) 17 g PO DAILY #100 ea 06/29/22 [Rx Last Taken Unknown] bupropion HCl 75 mg tablet 75 mg PO BID DEPRESSION 08/18/22 [History Last Taken Unknown] multivitamin 1 tab PO DAILY REPLACEMENT 08/18/22 [History Last Taken Unknown] acetaminophen 325 mg tablet 650 mg PO Q4H PRN PRN Fever, pain 1-02/21 #0 tabs 08/19/22 [Rx Last Taken Unknown] allopurinol 100 mg tablet 100 mg PO DAILY #1 TAB 08/19/22 [Rx Last Taken Unk nown] aluminum-mag hydroxide-simethicone 400 mg-400 mg-40 mg/5 mL oral susp (Mag-Al Plus Extra Strength) 30 ml PO Q6H PRN PRN Gastric Burning #0 mL 08/19/22 [Rx Last Taken Unknown] budesonide 0.5 mg/2 mL suspension for nebulization 0.5 mg (2 mL) inhalation BID.RT #0 mL 08/19/22 [Rx Last Taken Unknown] carvedilol 3.125 mg tablet 3.125 mg PO BIDCM #0 tabs 08/19/22 [Rx Last Taken Unknown] dicyclomine 10 mg capsule 20 mg PO Q6H PRN PRN abdominal discomfort #0 caps 08/19/22 [Rx Last Taken Unknown] folic acid 1 mg tablet 1 mg PO DAILY@0800 #0 tabs 08/19/22 [Rx Last Taken Unknown] hydroxyzine pamoate 25 mg capsule 50 mg PO Q4H PRN PRN mild anxiety #0 caps 08/19/22 [Rx Last Taken Unknown] indomethacin 25 mg capsule 25 mg PO TIDCM #0 caps 08/19/22 [Rx Last Taken Unknown] loperamide 2 mg capsule 2 mg PO Q4H PRN PRN LOOSE STOOLS #0 caps 08/19/22 [Rx Last Taken Unknown] menthol 0.44 %-zinc oxide 20.6 % topical ointment (Calmoseptine) 1 applic topical BID #0 grams 08/19/22 [Rx Last Taken Unknown] pantoprazole 40 mg tablet,delayed release 40 mg PO DAILY #0 tabs 08/19/22 [Rx Last Taken Unknown] thiamine HCl (vitamin B1) 100 mg tablet (Vitamin B-1) 100 mg PO DAILYCM #0 tabs 08/19/22 [Rx Last Taken Unknown] vit A 300 mcg-C 200 mg-E 27 mg-lutein 2 mg and minerals tablet (Healthy Eyes) 1 cap PO BID #0 tabs 08/19/22 [Rx Last Taken Unknown] tamsulosin 0.4 mg capsule 0.4 mg PO DAILY #0 caps 08/22/22 [Rx Last Taken Unknown] Allergy/AdvReac Type Severity Reaction Status Date / Time iodine Allergy Intermediate Unknown Verified 08/18/22 19:30 Family History Father , 67 Cancer lung Sister , 59 Myocardial infarction Mother , 58 Cancer Pulmonary embolus Brother Cancer throat Surgical History History of abdominal aortic aneurysm repair (06/20/04) History of appendectomy History of tracheostomy Social History household members: none Smoking Status: Former smoker alcohol intake: former details: Current 08/18/22 admission notes 2 weeks sobriety, prior heavy vodka daily. substance use type: does not use ROS Review of Systems ROS Unobtainable: due to mental status Physical Exam Const Constitutional Narrative: Sedated and mechanically ventilated. No ventilator dyssynchrony noted. HEENT normocephalic and head/scalp atraumatic Eyes PERRL Neck supple Neck Narrative: Stable appearing tracheostomy site. Chest inspection of chest normal Resp normal respiratory effort Auscultation: rhonchi and diminished lung sounds Cardio regular rate and regular rhythm GI normal to inspection, nondistended, normoactive bowel sounds Extremity General Extremity: edema bilateral lower extremity; Negative for clubbing Skin no rashes or lesions noted Neuro Sensorium / Orientation: sedated on vent Lab / Micro Data Result Diagrams: 09/01/22 03:55 09/01/22 03:55 Labs: Laboratory Results - last 24 hr 08/30/22 23:35: Phosphorus 4.8, Magnesium 1.7, Triglycerides 723 H 08/30/22 23:35: Procalcitonin 0.05 08/30/22 23:35: MRSA (PCR) Negative 08/30/22 23:35: Total Creatine Kinase 151 08/30/22 23:35: Troponin I High Sens 8 08/31/22 04:00: WBC 10.6, RBC 2.57 L, Hgb 8.3 L, Hct 24.2 L, MCV 94.2 H, MCH 32.3 H, MCHC 34.3, RDW Std Deviation 46.1 H, RDW Coeff of [place] 13.3, Plt Count 164, MPV 10.6, Immature Gran % (Auto) 0.500, Neut % (Auto) 83.1 H, Lymph % (Auto) 7.8 L, [place] % (Auto) 7.4, Eos % (Auto) 1.0, Baso % (Auto) 0.2, Absolute Neuts (auto) 8.8 H, Absolute Lymphs (auto) 0.83, Nucleated RBC % 0 08/31/22 04:00: Sodium 130 L, Potassium 3.6, Chloride 100, Carbon Dioxide 25.0, Anion Gap 5, BUN 29 H, Creatinine 1.18, Estim Creat Clear Calc 51.15, Est GFR (MDRD) Af Amer 76, Est GFR (MDRD) Non-Af 62, BUN/Creatinine Ratio 24.6 H, Glucose 85, Calcium 8.2 L, Total Bilirubin 0.70, AST 21, ALT 17, Alkaline Phosphatase 110, Total Protein 5.5 L, Albumin 2.0 L, Globulin 3.5, Albumin/Globulin Ratio 0.6 L Micro: Microbiology 08/30/22 23:41 Mucosa - Nasopharyngeal Respiratory Panel (PCR) - Final 08/30/22 23:35 Urine Catheter - Catheter Legionella Antigen - Final 08/30/22 23:35 Urine Catheter - Catheter Streptococcus pneumoniae Antigen (M - Final ABG Data ABG results: ABG 08/30/22 23:58 Specimen Type ART Sample Site L Radial pH 7.36 Bicarbonate Actual 23.6 Total CO2 25 Base Excess -2 O2 Saturation 93 L O2 % 30 ABG pCO2 41.5 ABG pO2 70 L Dougie Test N/A Respiration Rate 14 O2 Delivery Device Adult Vent Vent Mode AC Tidal Volume 550 POC PEEP 5 Radiology Impression KUB X-Ray 08/31/22 04:50 IMPRESSION: 1. Enteric tube tip appears to be at least within the stomach, left hemidiaphragm is not well seen due to adjacent basilar opacity. 2. Postoperative changes. Prominent colon gas in what appears to be transverse colon. No dilated small bowel loops. 3. Bibasilar effusions. Electronically Signed: Emily Salas MD at 5:45 EDT , Charges/Coding Procedures Hospitalists Procedures: [id number] [facility]
[2022-08-31] MEDS: Thiamine Hydrochloride 100 MG Tablet PO (09:44)
[2022-08-31] MEDS: Folic Acid 1 MG Tablet PO (09:44)
[2022-08-31] MEDS: Allopurinol 100 MG Tablet PO (09:44)
[2022-08-31] MEDS: Chlorhexidine 15 ML PO ×2 (09:44→20:28)
[2022-08-31] MEDS: Losartan Potassium 50 MG Tablet PO ×2 (09:45→20:29)
[2022-08-31] MEDS: Furosemide 40 MG Tablet PO (09:46)
[2022-08-31] MEDS: amLODIPine 10 MG Tablet PO (09:46)
[2022-08-31] MEDS: Polyethylene Glycol 3350 17 GM PACKET PO (09:46)
[2022-08-31] MEDS: buPROPion 75 MG Tablet PO ×2 (09:46→20:29)
[2022-08-31] MEDS: Enoxaparin 40 MG/0.4 ML Syringe SC (09:46)
[2022-08-31 10:51] LABS: BNP,B-Type NATRIURETIC PEPTIDE 433.9 pg/mL (0-100)
[2022-08-31 10:59] LABS: Procalcitonin 0.05 ng/mL (0.00-0.09)
[2022-08-31] MEDS: Propofol 10MG/Ml 1,000 MG/100 ML Bottle 8.4 MG CONT INF (15:39)
[2022-08-31] MEDS: Atorvastatin Calcium 80 MG Tablet PO (20:29)
[2022-09-01] VITALS (33 sets, daily range): BP systolic 86–151; BP diastolic 40–85; PULSE 56–85; RESP 14–23; TEMP 36.6–37.1; O2SAT 91–100; BMI 28.0
[2022-09-01 04:14] LABS: Absolute Lymphocyte Count 0.52 X10^3/uL (0.83-4.51); Absolute Neutrophil Count 19.1 X10^3/uL (2.0-7.7); Basophil# 0.04 X10^3/uL; Basophil% 0.2 % (0-1); Differential Indicated SCAN CRITERIA MET; Eosinophil# 0.07 X10^3/uL; Eosinophils% 0.3 % (0-5); Hematocrit 28.8 % (40-54); Hemoglobin 9.8 g/dL (13.0-16.5); Lymphocyte # 0.52 X10^3/ul (0.83-4.51); Lymphocyte % 2.5 % (19-41); Mean Corpuscular Hgb 32.9 pg (27.0-32.0); Mean Corpuscular Volume 96.6 fL (80-94); Monocyte% 6.1 % (0-10); NRBC Flagged by Analyzer 0 % (0-5); Neutrophil # 19.13 X10^3/uL (2.7-7.7); Neutrophil % 90.2 % (47-70); POSITIVE DIFFERENTIAL YES; Platelet Count 195 K/mm3 (150-450); RBC Distribution Width CV 13.8 % (11.6-14.6); Red Blood Count 2.98 M/mm3 (4.6-6.2); White Blood Count 21.2 K/mm3 (4.4-11.0)
[2022-09-01 04:32] LABS: ALB/GLOB Ratio 0.5 RATIO (0.9-2.4); AST(SGOT) 38 U/L (15-37); Alanine Aminotransfer ALT/SGPT 22 U/L (16-61); Alkaline Phosphatase 272 U/L (45-117); Anion Gap 6 (5-15); BUN 29 mg/dL (7-18); BUN/Creat Ratio 20.9 RATIO (10-20); Calcium,Total 8.2 mg/dL (8.5-10.1); Chloride 104 mmol/L (98-107); Creatinine, Serum 1.39 mg/dL (0.70-1.30); EST Glomerular Filtration Rate 52 mL/min (>60); Est Glom Filt Rate - Afr Amer 63 mL/min (>60); Estimated Creatinine Clearance 43.42 ml/min; Globulin 4.1 g/dL (2.2-4.2); Glucose 65 mg/dL (74-106); Potassium 4.3 mmol/L (3.5-5.1); Protein, Total 6.1 g/dL (6.4-8.2); Sodium Level 134 mmol/L (136-145)
[2022-09-01 04:59] LABS: Macrocytosis 1+
[2022-09-01] MEDS: hydrALAZINE 25 MG Tablet PO ×3 (05:28→20:29)
--- NOTE | 2022-09-01 06:49 | PCM.PN.INT ---
Assessment & Plan Assessment/Plan (1) Respiratory failure: QUALIFIERS: Chronicity: acute Respiratory failure complication: hypoxia Qualified Code(s): J96.01 - Acute respiratory failure with hypoxia (2) Pneumonia: PLAN: Plan RECOMMENDATIONS: 1. Attempt to transition from pressure support mechanical ventilation to trach collar O2. 2. Continue aggressive bronchopulmonary hygiene and suctioning as needed. 3. Continue scheduled bronchodilators. 4. Continue fentanyl for sedation, if needed. 5. Monitor for signs of alcohol withdrawal. Continue thiamine and folic acid. 6. Continue empiric antimicrobials, pending finalized infectious work-up. 7. Continue appropriate ICU prophylaxis. IMPRESSIONS: 1. Acute hypoxemic respiratory failure Clinical concern for bilateral multifocal pneumonia as precipitating etiology for acute presentation, with associated mucous plugging. The patient continues to have significant secretions. Plan to continue aggressive bronchopulmonary hygiene along with empiric antimicrobials and scheduled bronchodilators. We will attempt to transition today from mechanical ventilatory support to trach collar supplemental O2. Continue to wean FiO2 to maintain oxygen saturations at or above 90%. Minimize sedation as tolerated. 2. History of alcohol dependency The patient is apparently receiving vodka 3 times daily at his nursing facility. Recommend monitoring for any signs of alcohol withdrawal. Continue thiamine and folate as ordered. 3. History of atrial fibrillation/coronary artery disease/questionable COPD/hypertension/hyperlipidemia/AAA/history of laryngeal CA Complicates care, management, recovery and prognosis. Continue home medications as indicated. Recommend PT/OT evaluations, once medically stabilized. TIME: 34 minutes of critical care time, independent of procedures, was spent addressing the patient's acute hypoxemic respiratory failure secondary to multifocal pneumonia, review of all data and collaboration with the care team. Subjective Subjective The patient was seen and examined at the bedside this morning. Events from the last 24 hours have been reviewed. The patient is currently afebrile, hemodynamically stable and maintaining appropriate oxygen saturations on spontaneous mode mechanical ventilation with an FiO2 requirement of 35%. No overnight issues were identified by the nursing staff. The patient is documented to be overall net +1 L for the hospitalization. He does continue to have significant secretion output. White count is increased at 21,000 this morning. Creatinine has increased to 1.39. Objective Data Objective Data The patient's most recent lab work, culture data and imaging studies have all been personally reviewed. Sputum culture is pending. Vital Signs: Vital Signs Temp Pulse Resp BP Pulse Ox O2 Del Method FiO2 98.4 F 74 14 137/56 H 93 Mechanical Ventilator 35 09/01/22 02:00 09/01/22 06:00 09/01/22 06:00 09/01/22 06:00 09/01/22 06:00 09/01/22 06:00 09/01/22 06:00 Oxygen Delivery Method Mechanical Ventilator Weight: 207 lb 3.752 oz Body Mass Index (BMI) 28.0 Intake & Output: Intake and Output for Last 24 Hours 08/30/22 08/31/22 09/01/22 23:59 23:59 23:59 Intake Total 1.43 / 4.83 2833.31 / 2838.91 393.10 / 393.10 Output Total 1999 200 / 200 Balance 1.43 / 4.83 833.31 / 838.91 193.10 / 193.10 Lab / Micro Data Attestation: I reviewed the patient's lab results. Result Diagrams: 09/01/22 03:55 09/01/22 03:55 Labs: Laboratory Results - last 24 hr 08/31/22 10:00: B-Natriuretic Peptide 433.9 H 08/31/22 10:00: Procalcitonin 0.05 09/01/22 03:55: WBC 21.2 H, RBC 2.98 L, Hgb 9.8 L, Hct 28.8 L, MCV 96.6 H, MCH 32.9 H, MCHC 34.0, RDW Std Deviation 49.0 H, RDW Coeff of [place] 13.8, Plt Count 195, MPV 11.0, Immature Gran % (Auto) 0.700, Neut % (Auto) 90.2 H, Lymph % (Auto) 2.5 L, [place] % (Auto) 6.1, Eos % (Auto) 0.3, Baso % (Auto) 0.2, Absolute Neuts (auto) 19.1 H, Absolute Lymphs (auto) 0.52 L, Nucleated RBC % 0, Macrocytosis 1+ 09/01/22 03:55: Sodium 134 L, Potassium 4.3, Chloride 104, Carbon Dioxide 24.0, Anion Gap 6, BUN 29 H, Creatinine 1.39 H, Estim Creat Clear Calc 43.42, Est GFR (MDRD) Af Amer 63, Est GFR (MDRD) Non-Af 52 L, BUN/Creatinine Ratio 20.9 H, Glucose 65 L, Calcium 8.2 L, Total Bilirubin 1.40 H, AST 38 H, ALT 22, Alkaline Phosphatase 272 H, Total Protein 6.1 L, Albumin 2.0 L, Globulin 4.1, Albumin/Globulin Ratio 0.5 L Micro: Microbiology 08/30/22 23:41 Sputum, Induced/Lukens Gram Stain - Final 08/30/22 23:41 Mucosa - Nasopharyngeal Respiratory Panel (PCR) - Final 08/30/22 23:35 Urine Catheter - Catheter Legionella Antigen - Final 08/30/22 23:35 Urine Catheter - Catheter Streptococcus pneumoniae Antigen (M - Final Physical Exam Const Constitutional Narrative: Sedated and mechanically ventilated. No ventilator dyssynchrony noted. Tolerating spontaneous mode of mechanical ventilation. HEENT normocephalic and head/scalp atraumatic Eyes PERRL and EOMs intact bilaterally Neck supple Neck Narrative: Stable appearing tracheostomy site. Chest inspection of chest normal Resp normal respiratory effort Auscultation: rhonchi and diminished lung sounds Cardio S1 normal heart sound and S2 normal heart sound Rhythm: abnormal rhythm GI normal to inspection, nondistended, normoactive bowel sounds Extremity General Extremity: edema bilateral upper extremity and lower extremity; Negative for clubbing Skin no rashes or lesions noted Neuro Neuro Narrative: Arouses and follows simple commands. Charges/Coding Procedures Hospitalists Procedures: 93754 Critial Care 1st Hr
[2022-09-01] MEDS: Budesonide Respules 0.5 MG/2 ML AMPUL.NEB. INHALATION ×2 (06:54→19:40)
--- NOTE | 2022-09-01 07:09 | PN.HOSP_ITS ---
Reason for Visit Reason for Visit: Diagnoses Pneumonia, unspecified organism (08/30/22) Acute respiratory failure with hypoxia (08/30/22) Respiratory failure, unspecified, unspecified whether with hypoxia or hypercapnia (08/30/22) Subjective Subjective taken off vent today. trach still in place. Objective Data Objective Data Vital Signs: Vital Signs Temp Pulse Resp BP Pulse Ox O2 Del Method FiO2 36.9 C 77 16 132/65 H 96 Mechanical Ventilator 35 09/01/22 02:00 09/01/22 07:00 09/01/22 07:00 09/01/22 07:00 09/01/22 07:00 09/01/22 07:00 09/01/22 07:00 Oxygen Delivery Method Mechanical Ventilator Weight: 94 kg Body Mass Index (BMI) 28.0 Intake & Output: Intake and Output for Last 24 Hours 08/30/22 08/31/22 09/01/22 23:59 23:59 23:59 Intake Total 1.43 / 4.83 2833.31 / 2838.91 398.10 / 398.10 Output Total 1999 200 / 200 Balance 1.43 / 4.83 833.31 / 838.91 198.10 / 198.10 Lab / Micro Data Result Diagrams: 09/01/22 03:55 09/01/22 03:55 Labs: Laboratory Results - last 24 hr 08/31/22 10:00: B-Natriuretic Peptide 433.9 H 08/31/22 10:00: Procalcitonin 0.05 09/01/22 03:55: WBC 21.2 H, RBC 2.98 L, Hgb 9.8 L, Hct 28.8 L, MCV 96.6 H, MCH 32.9 H, MCHC 34.0, RDW Std Deviation 49.0 H, RDW Coeff of [place] 13.8, Plt Count 195, MPV 11.0, Immature Gran % (Auto) 0.700, Neut % (Auto) 90.2 H, Lymph % (Auto) 2.5 L, [place] % (Auto) 6.1, Eos % (Auto) 0.3, Baso % (Auto) 0.2, Absolute Neuts (auto) 19.1 H, Absolute Lymphs (auto) 0.52 L, Nucleated RBC % 0, Macrocytosis 1+ 09/01/22 03:55: Sodium 134 L, Potassium 4.3, Chloride 104, Carbon Dioxide 24.0, Anion Gap 6, BUN 29 H, Creatinine 1.39 H, Estim Creat Clear Calc 43.42, Est GFR (MDRD) Af Amer 63, Est GFR (MDRD) Non-Af 52 L, BUN/Creatinine Ratio 20.9 H, Glucose 65 L, Calcium 8.2 L, Total Bilirubin 1.40 H, AST 38 H, ALT 22, Alkaline Phosphatase 272 H, Total Protein 6.1 L, Albumin 2.0 L, Globulin 4.1, Albumin/Globulin Ratio 0.5 L Micro: Microbiology 08/30/22 23:41 Sputum, Induced/Lukens Gram Stain - Final 08/30/22 23:41 Mucosa - Nasopharyngeal Respiratory Panel (PCR) - Final 08/30/22 23:35 Urine Catheter - Catheter Legionella Antigen - Final 08/30/22 23:35 Urine Catheter - Catheter Streptococcus pneumoniae Antigen (M - Final Physical Exam Const alert and no apparent distress HEENT head/scalp atraumatic and moist oral mucous membranes Resp normal respiratory effort and no retractions Resp Narrative: coarse breath sounds bilaterally. Cardio regular rate, regular rhythm, S1 normal heart sound and S2 normal heart sound Assessment & Plan Assessment/Plan (1) Respiratory failure: QUALIFIERS: Chronicity: acute Respiratory failure complication: hypoxia Qualified Code(s): J96.01 - Acute respiratory failure with hypoxia PLAN: Acute Hypoxic Respiratory Failure secondary to Multifocal Pneumonia, COPD Continue trach and insert recently placed with ENT evaluation at [facility] in the emergency room, ICU physician consultation, continue ventilated status, continue propofol and add fentanyl, continue ATC budesonide therapy, PRN albuterol, maintained on IV Zosyn and Vancomycin with pending MRSA screen, HOB, IS parameters w/ pending sputum cultures, full respiratory viral panel and urine antigens. Bld cx x 2 obtained in the ED. Taken off vent 09/01. Currently on trach mask. (2) Pneumonia: PLAN: + Staph aureus on vanc and pip/tazo Strep and legionella negative follow up SCx PLAN: Plan The patient is an 82 y/o M w/ PMHx: Chronic AF, CKD stage III unclear subtype, Nonobstructive CAD, HTN, HLD, Anxiety and Depression, AAA s/p repair following with Vascular, COPD, BPH, Carotid disease, Hx Laryngeal cancer, Chronic Diastolic CHF, Former EtOH abuse, recent admission 08/18/22-08/22/22 following treatment for intractable R knee pain with notable effusion drained per Orthopedic surgery and fluid presentation c/w acute gout flare who now presents to the [facility] on 08/30/22 secondary to history of increased fatigue, increased secretions, dyspnea worse with exertion with no recent fever or chills but family concerned thus prompted ED presentation eventually decompensating, requiring tracheostomy placement and ventilation with CT C/A/P with evidence multifocal PNA and transfer to [facility] 08/30/22. Chronic conditions: * EtOH Abuse, previously during recent presentation at [facility] had been sober: SNF per discussions with outside facility ED for unclear reasons administering vodka 3x/daily. DW daughters, I would suspect that he would not go through alcohol withdrawal. I explained that since he is currently sedated, relatively low quantity of alcohol he does use, the likelihood of alcohol withdrawal during this hospitalization. I told them also that it is unlikely I will give him alcohol during this admission. * Chronic atrial fibrillation: Appears rate consult at outside facility, continue Coreg with low threshold to hold if pressures decrease. * Nonobstructive CAD: We will continue patient aspirin, statin, Coreg, losartan home regimen. * Chronic COPD: Patient not on chronic inhalers, given presentation we will maintain on ATC budesonide therapy, as needed albuterol and continue treatment as noted #1. * Chronic HFpEF: We will continue aspirin, statin, losartan, Lasix, hydralazine as BP allows, Echo 12/06/2019 with EF 65%, Temporarily holding patient beta- tory therapy as heart rate in the 40s, add back once heart rate appropriate. * Anxiety and depression: Continue patient home bupropion regimen. * Hypertension: Continue home regimen including hydralazine, Lasix, amlodipine, losartan with hold parameters as needed, PRN hydralazine. Temporarily holding beta-tory therapy as heart rate in the 40s, add back once appropriate. * Hyperlipidemia: continue patient home statin therapy. * History of AAA: Patient status post AAA repair 2004, irregularity at the peripheral surface of the aorta is concerning for penetrating atherosclerotic ulcer with bilateral femoral aneurysms,encourage continued outpatient follow- up with vascular surgery as previously arranged. * History laryngeal cancer: s/p resection and XRT, considered in remission, ENT consultation in the ED at outside ED as noted with tracheostomy placement given concern for respiratory decompensation and eventual ventilated status as noted #1. * Former tobacco use: Encourage continued tobacco cessation. * BPH: From current list not on any chronic regimen, monitor for symptoms and may add if necessary. * Chronic Kidney Disease Stage III, unclear subtype: Admission BUN/Cr 30/1.37, baseline renal function appears primarily 1.3-1.5, stay, repeat BMP in AM. DVT prophylaxis: Lovenox. CODE status: Patient during prior presentation did not have healthcare power of deputy prosecuting attorney nor living will in place however he had reported that if he could not make decisions he wanted his daughter to be his medical decision-maker. During prior admission he had confirmed full CODE STATUS and discussed this with outside facility ED physician and he confirmed that family and patient continued a full CODE STATUS also at the facility. Charges/Coding Visit Charges Inpatient E&M: 06964 Subs Hosp L2
[2022-09-01] MEDS: Folic Acid 1 MG Tablet PO (07:55)
[2022-09-01] MEDS: Chlorhexidine 15 ML PO ×2 (07:55→20:38)
[2022-09-01] MEDS: Thiamine Hydrochloride 100 MG Tablet PO (07:56)
--- NOTE | 2022-09-01 09:22 | CASEMGMT ---
Social Work SW unable to speak to pt as pt has new trach and was also sleeping. SW called pt daughter, Omaira, who was floral designer salesperson at pt most recent admission to the hospital on 08/22/22. Omaira worked with SWs to create discharge plan for pt to go to [facility] on pt last admission. SW spoke to Omaira this AM and discussed the discharge plan for pt on this admisson. Omaira shared that family would like pt to return to [facility] when pt is ready for discharge. SW updated Discharge business assistant, Bhumi, of need to send updates to [facility] in [facility]. Bhumi to send updates. PLAN: [facility], when medically ready SHAHEEN Romano
[2022-09-01] MEDS: amLODIPine 10 MG Tablet PO (09:59)
[2022-09-01] MEDS: buPROPion 75 MG Tablet PO ×2 (09:59→20:56)
[2022-09-01] MEDS: Allopurinol 100 MG Tablet PO (09:59)
[2022-09-01] MEDS: Tamsulosin HCl 0.4 MG Capsule PO (10:00)
[2022-09-01] MEDS: Furosemide 40 MG Tablet PO (10:00)
[2022-09-01] MEDS: Enoxaparin 40 MG/0.4 ML Syringe SC (10:00)
[2022-09-01] MEDS: Losartan Potassium 50 MG Tablet PO ×2 (10:00→20:29)
[2022-09-01] MEDS: Polyethylene Glycol 3350 17 GM PACKET PO (10:00)
--- NOTE | 2022-09-01 10:13 | CASEMGMT ---
Discharge Planning Updates sent to [facility] Bhumi Thomson
[2022-09-01] MEDS: 0.9% Saline Lock 10 ML Syringe IV (12:36)
[2022-09-01] MEDS: LORazepam 2 MG/ML Syringe IV ×2 (12:36→20:53)
--- NOTE | 2022-09-01 14:26 | CASEMGMT ---
Discharge Planning Jenn Brasher called to confirm referral. She stated that he will need to be more stable than present to return. Bhumi Thomson
[2022-09-01 16:25] LABS: Vancomycin, Trough Level 20.5 ug/mL (5.0-15.0)
--- NOTE | 2022-09-01 16:40 | PCM.RX.CS ---
Consult Type of Consult: Follow-up Prior Doses of Antibiotics Received/Current Regimen: Medications Discontinued Medications Vancomycin HCl 750 mg/ Sodium (Chloride) 265 mls @ 250 mls/hr IV Q12H EDOUARD Last Admin: 09/01/22 05:27 Dose: Infused Labs: Sodium 134 mmol/L (136-145) L 09/01/22 03:55 Potassium 4.3 mmol/L (3.5-5.1) 09/01/22 03:55 Chloride 104 mmol/L (98-107) 09/01/22 03:55 Carbon Dioxide 24.0 mmol/L (21.0-32.0) 09/01/22 03:55 Anion Gap 6 (5-15) 09/01/22 03:55 BUN 29 mg/dL (7-18) H 09/01/22 03:55 Creatinine 1.39 mg/dL (0.70-1.30) H 09/01/22 03:55 Est GFR (MDRD) Af Amer 63 mL/min (>60) 09/01/22 03:55 Est GFR (MDRD) Non-Af 52 mL/min (>60) L 09/01/22 03:55 BUN/Creatinine Ratio 20.9 RATIO (10-20) H 09/01/22 03:55 Glucose 65 mg/dL (74-106) L 09/01/22 03:55 Vancomycin Trough 20.5 ug/mL (5.0-15.0) H 09/01/22 15:45 Microbiology: Microbiology 08/30/22 23:41 Sputum, Induced/Lukens Gram Stain - Final 08/30/22 23:41 Sputum, Induced/Lukens Respiratory Culture - Preliminary Staphylococcus aureus 08/30/22 23:41 Mucosa - Nasopharyngeal Respiratory Panel (PCR) - Final 08/30/22 23:35 Urine Catheter - Catheter Legionella Antigen - Final 08/30/22 23:35 Urine Catheter - Catheter Streptococcus pneumoniae Antigen (M - Final Weight used for dosin kg Goal Trough: 15-20 mcg/mL Pharmacy Plan for Drug Dosing: Trough slightly above goal but drawn early prior to 12 hours. Decrease to 500mg IV q12h and recheck prior to 4th dose. Pharmacy Service will continue to monitor and adjust dosing as required. Follow-Up Labs: Trough Vancomycin - 09/03 @ 0730
[2022-09-01 17:10] LABS: Bedside Glucose 74 mg/dL (74-106)
[2022-09-01] MEDS: Vancomycin IV 500 MG/100 ML BAG 100 MG IV (19:33)
[2022-09-01] MEDS: Atorvastatin Calcium 80 MG Tablet PO (20:29)
[2022-09-02] VITALS (32 sets, daily range): BP systolic 93–138; BP diastolic 40–98; PULSE 60–86; RESP 13–22; TEMP 36.1–36.8; O2SAT 89–96; BMI 27.8
[2022-09-02] MEDS: LORazepam 2 MG/ML Syringe IV ×2 (00:29→06:35)
[2022-09-02 04:11] LABS: Absolute Lymphocyte Count 0.68 X10^3/uL (0.83-4.51); Absolute Neutrophil Count 22.4 X10^3/uL (2.0-7.7); Basophil# 0.07 X10^3/uL; Basophil% 0.3 % (0-1); Eosinophil# 0.08 X10^3/uL; Eosinophils% 0.3 % (0-5); Hematocrit 26.2 % (40-54); Hemoglobin 8.5 g/dL (13.0-16.5); Lymphocyte # 0.68 X10^3/ul (0.83-4.51); Lymphocyte % 2.7 % (19-41); Mean Corp Hgb Conc 32.4 g/dL (32-36); Mean Corpuscular Hgb 32.3 pg (27.0-32.0); Mean Corpuscular Volume 99.6 fL (80-94); Mean Platelet Vol. 10.7 fl (6.2-12.0); Monocyte# 1.72 X10^3/uL; Monocyte% 6.8 % (0-10); NRBC Flagged by Analyzer 0 % (0-5); Neutrophil # 22.44 X10^3/uL (2.7-7.7); Neutrophil % 89.1 % (47-70); POSITIVE DIFFERENTIAL YES; Platelet Count 178 K/mm3 (150-450); RBC Distribution Width CV 13.9 % (11.6-14.6); Red Blood Count 2.63 M/mm3 (4.6-6.2); White Blood Count 25.2 K/mm3 (4.4-11.0)
[2022-09-02 04:16] LABS: Differential Indicated SCAN CRITERIA MET
[2022-09-02 04:29] LABS: ALB/GLOB Ratio 0.5 RATIO (0.9-2.4); AST(SGOT) 58 U/L (15-37); Alanine Aminotransfer ALT/SGPT 27 U/L (16-61); Albumin, Serum 1.8 g/dL (3.2-5.0); Alkaline Phosphatase 200 U/L (45-117); Anion Gap 4 (5-15); BUN 33 mg/dL (7-18); BUN/Creat Ratio 23.4 RATIO (10-20); Calcium,Total 8.5 mg/dL (8.5-10.1); Chloride 105 mmol/L (98-107); Creatinine, Serum 1.41 mg/dL (0.70-1.30); EST Glomerular Filtration Rate 51 mL/min (>60); Est Glom Filt Rate - Afr Amer 62 mL/min (>60); Estimated Creatinine Clearance 42.81 ml/min; Globulin 3.9 g/dL (2.2-4.2); Glucose 73 mg/dL (74-106); Potassium 3.9 mmol/L (3.5-5.1); Protein, Total 5.7 g/dL (6.4-8.2); Sodium Level 134 mmol/L (136-145)
[2022-09-02 04:38] LABS: Macrocytosis 1+
[2022-09-02] MEDS: hydrALAZINE 25 MG Tablet PO ×3 (05:05→20:49)
[2022-09-02] MEDS: Budesonide Respules 0.5 MG/2 ML AMPUL.NEB. INHALATION ×2 (06:49→20:05)
--- NOTE | 2022-09-02 07:07 | PCM.PN.HOSP ---
Reason for Visit Reason for Visit: Diagnoses Pneumonia, unspecified organism (08/30/22) Acute respiratory failure with hypoxia (08/30/22) Respiratory failure, unspecified, unspecified whether with hypoxia or hypercapnia (08/30/22) Subjective Subjective Pt received lorazepam for suspected alcohol withdrawal. Currently, pt too somnolent to interact Objective Data Objective Data Vital Signs: Vital Signs Temp Pulse Resp BP Pulse Ox O2 Del Method FiO2 36.6 C 69 19 H 110/44 L 90 Trach Collar 35 09/02/22 02:00 09/02/22 07:00 09/02/22 07:00 09/02/22 07:00 09/02/22 07:00 09/02/22 07:00 09/02/22 06:52 Oxygen Delivery Method Trach Collar Weight: 93.4 kg Body Mass Index (BMI) 27.8 Intake & Output: Intake and Output for Last 24 Hours 08/31/22 09/01/22 09/02/22 23:59 23:59 23:59 Intake Total 2833.31 / 2838.91 943.10 / 943.10 110 / 110 Output Total 1999 975 / 975 150 / 150 Balance 833.31 / 838.91 -31.90 / -31.90 -40 / -40 Lab / Micro Data Result Diagrams: 09/02/22 04:05 09/02/22 04:05 Labs: Laboratory Results - last 24 hr 09/01/22 15:45: Vancomycin Trough 20.5 H 09/01/22 16:47: POC Glucose 74 09/02/22 04:05: WBC 25.2 H, RBC 2.63 L, Hgb 8.5 L, Hct 26.2 L, MCV 99.6 H, MCH 32.3 H, MCHC 32.4, RDW Std Deviation 50.0 H, RDW Coeff of [place] 13.9, Plt Count 178, MPV 10.7, Immature Gran % (Auto) 0.800, Neut % (Auto) 89.1 H, Lymph % (Auto) 2.7 L, [place] % (Auto) 6.8, Eos % (Auto) 0.3, Baso % (Auto) 0.3, Absolute Neuts (auto) 22.4 H, Absolute Lymphs (auto) 0.68 L, Nucleated RBC % 0, Diff Path Review September foll, Macrocytosis 1+ 09/02/22 04:05: Sodium 134 L, Potassium 3.9, Chloride 105, Carbon Dioxide 25.0, Anion Gap 4 L, BUN 33 H, Creatinine 1.41 H, Estim Creat Clear Calc 42.81, Est GFR (MDRD) Af Amer 62, Est GFR (MDRD) Non-Af 51 L, BUN/Creatinine Ratio 23.4 H, Glucose 73 L, Calcium 8.5, Total Bilirubin 1.50 H, AST 58 H, ALT 27, Alkaline Phosphatase 200 H, Total Protein 5.7 L, Albumin 1.8 L, Globulin 3.9, Albumin/Globulin Ratio 0.5 L Micro: Microbiology 08/30/22 23:41 Sputum, Induced/Lukens Gram Stain - Final 08/30/22 23:41 Sputum, Induced/Lukens Respiratory Culture - Preliminary Staphylococcus aureus 08/30/22 23:41 Mucosa - Nasopharyngeal Respiratory Panel (PCR) - Final 08/30/22 23:35 Urine Catheter - Catheter Legionella Antigen - Final 08/30/22 23:35 Urine Catheter - Catheter Streptococcus pneumoniae Antigen (M - Final Physical Exam Const Constitutional Narrative: somnolent. HEENT head/scalp atraumatic and moist oral mucous membranes HEENT Narrative: NGT in place Neck Neck Narrative: tracheostomy in place with trach mask. Resp normal respiratory effort, no retractions and no use of accessory muscles Cardio regular rate, regular rhythm, S1 normal heart sound and S2 normal heart sound GI normal to inspection, nondistended, normoactive bowel sounds, soft to palpation, non-tender and non-distended Assessment & Plan Assessment/Plan (1) Respiratory failure: QUALIFIERS: Chronicity: acute Respiratory failure complication: hypoxia Qualified Code(s): J96.01 - Acute respiratory failure with hypoxia PLAN: Acute Hypoxic Respiratory Failure secondary to Multifocal Pneumonia, COPD Continue trach and insert recently placed with ENT evaluation at [facility] in the emergency room, ICU physician consultation, continue ventilated status, continue propofol and add fentanyl, continue ATC budesonide therapy, PRN albuterol, maintained on IV Zosyn and Vancomycin with pending MRSA screen, HOB, IS parameters w/ pending sputum cultures, full respiratory viral panel and urine antigens. Bld cx x 2 obtained in the ED. Taken off vent 09/01. Currently on trach mask. (2) Pneumonia: PLAN: + Staph aureus on vanc and pip/tazo Strep and legionella negative follow up SCx (3) Encephalopathy: PLAN: suspect toxic as pt had been receiving 2mg of lorazepam. as mentioned previously, pt was having 3 shots of vodka/d in the hospital and at the long-term. Therefore, I feel the liklihood of severe alcohol withdrawal is low. I will discontinue CIWA lorazepam. Pt will have lorazepam ordered, but at a much lower dose--if needed. PLAN: Plan The patient is an 82 y/o M w/ PMHx: Chronic AF, CKD stage III unclear subtype, Nonobstructive CAD, HTN, HLD, Anxiety and Depression, AAA s/p repair following with Vascular, COPD, BPH, Carotid disease, Hx Laryngeal cancer, Chronic Diastolic CHF, Former EtOH abuse, recent admission 08/18/22-08/22/22 following treatment for intractable R knee pain with notable effusion drained per Orthopedic surgery and fluid presentation c/w acute gout flare who now presents to the [facility] on 08/30/22 secondary to history of increased fatigue, increased secretions, dyspnea worse with exertion with no recent fever or chills but family concerned thus prompted ED presentation eventually decompensating, requiring tracheostomy placement and ventilation with CT C/A/P with evidence multifocal PNA and transfer to [facility] 08/30/22. Chronic conditions: EtOH Abuse, previously during recent presentation at [facility] had been sober: SNF per discussions with outside facility ED for unclear reasons administering vodka 3x/daily. DW daughters, I would suspect that he would not go through alcohol withdrawal. I explained that since he is currently sedated, relatively low quantity of alcohol he does use, the likelihood of alcohol withdrawal during this hospitalization. I told them also that it is unlikely I will give him alcohol during this admission. Given his currently somnolence, which may be iatrogenic from 2mg of lorazepam. I am going to change lorazepam to 0.5mg PRN for agitation. Chronic atrial fibrillation: Appears rate consult at outside facility, continue Coreg with low threshold to hold if pressures decrease. Nonobstructive CAD: We will continue patient aspirin, statin, Coreg, losartan home regimen. Chronic COPD: Patient not on chronic inhalers, given presentation we will maintain on ATC budesonide therapy, as needed albuterol and continue treatment as noted #1. Chronic HFpEF: We will continue aspirin, statin, losartan, Lasix, hydralazine as BP allows, Echo 12/06/2019 with EF 65%, Temporarily holding patient beta-tory therapy as heart rate in the 40s, add back once heart rate appropriate. Anxiety and depression: Continue patient home bupropion regimen. Hypertension: Continue home regimen including hydralazine, Lasix, amlodipine, losartan with hold parameters as needed, PRN hydralazine. Temporarily holding beta-tory therapy as heart rate in the 40s, add back once appropriate. Hyperlipidemia: continue patient home statin therapy. History of AAA: Patient status post AAA repair 2004, irregularity at the peripheral surface of the aorta is concerning for penetrating atherosclerotic ulcer with bilateral femoral aneurysms,encourage continued outpatient follow-up with vascular surgery as previously arranged. History laryngeal cancer: s/p resection and XRT, considered in remission, ENT consultation in the ED at outside ED as noted with tracheostomy placement given concern for respiratory decompensation and eventual ventilated status as noted #1. Former tobacco use: Encourage continued tobacco cessation. BPH: From current list not on any chronic regimen, monitor for symptoms and may add if necessary. Chronic Kidney Disease Stage III, unclear subtype: Admission BUN/Cr 30/1.37, baseline renal function appears primarily 1.3-1.5, stay, repeat BMP in AM. DVT prophylaxis: Lovenox. CODE status: Patient during prior presentation did not have healthcare power of business attorney nor living will in place however he had reported that if he could not make decisions he wanted his daughter to be his medical decision-maker. During prior admission he had confirmed full CODE STATUS and discussed this with outside facility ED physician and he confirmed that family and patient continued a full CODE STATUS also at the facility. Charges/Coding Visit Charges Inpatient E&M: 68124 Subs Hosp L2
--- NOTE | 2022-09-02 07:33 | PCM.PN.INT ---
Assessment & Plan Assessment/Plan (1) Respiratory failure: QUALIFIERS: Chronicity: acute Respiratory failure complication: hypoxia Qualified Code(s): J96.01 - Acute respiratory failure with hypoxia (2) Pneumonia: PLAN: Plan RECOMMENDATIONS: 1. Continue trach collar supplemental O2 and wean FiO2 for saturations greater than 90%. 2. Continue aggressive bronchopulmonary hygiene and suctioning as needed. 3. Antimicrobial de-escalation based upon cultures. 4. Continue as needed Ativan along with thiamine and folate. 5. Initiate tube feeds today. Speech therapy following to assist with dietary advancement as mentation improves. 6. Continue appropriate ICU prophylaxis. IMPRESSIONS: 1. Acute hypoxemic respiratory failure Clinical concern for bilateral multifocal pneumonia as precipitating etiology for acute presentation, with associated mucous plugging. The patient continues to have significant secretions. Plan to continue aggressive bronchopulmonary hygiene along with empiric antimicrobials and scheduled bronchodilators. Continue trach collar supplemental O2 and wean FiO2 for saturations greater than 90%. Ventilatory support can be utilized if needed. 2. History of alcohol dependency The patient is apparently receiving vodka 3 times daily at his nursing facility. Recommend monitoring for any signs of alcohol withdrawal. Continue thiamine and folate as ordered, along with as needed Ativan for symptom control. 3. History of atrial fibrillation/coronary artery disease/questionable COPD/hypertension/hyperlipidemia/AAA/history of laryngeal CA Complicates care, management, recovery and prognosis. Continue home medications as indicated. PT/OT to work with the patient. Speech therapy to reevaluate the patient regarding dietary advancement. In the interim, okay to initiate tube feeds. TIME: 31 minutes of critical care time, independent of procedures, was spent addressing the patient's acute hypoxemic respiratory failure secondary to multifocal pneumonia, review of all data and collaboration with the care team. Subjective Subjective The patient was seen and examined at the bedside this morning. Events from the last 24 hours have been reviewed. The patient is currently afebrile, hemodynamically stable and maintaining appropriate oxygen saturations on trach collar with an FiO2 of 35%. According to nursing staff, the patient received Ativan x3 over concerns for alcohol withdrawal. White count remains elevated at 25,000. The patient remains on empiric broad-spectrum antimicrobials. Objective Data Objective Data The patient's most recent lab work, culture data and imaging studies have all been personally reviewed. Preliminary sputum culture was positive for Staph aureus. Vital Signs: Vital Signs Temp Pulse Resp BP Pulse Ox O2 Del Method FiO2 98 F 69 19 H 110/44 L 90 Trach Collar 35 09/02/22 02:00 09/02/22 07:00 09/02/22 07:00 09/02/22 07:00 09/02/22 07:00 09/02/22 07:00 09/02/22 06:52 Oxygen Delivery Method Trach Collar Weight: 205 lb 14.588 oz Body Mass Index (BMI) 27.8 Intake & Output: Intake and Output for Last 24 Hours 08/31/22 09/01/22 09/02/22 23:59 23:59 23:59 Intake Total 2833.31 / 2838.91 943.10 / 943.10 110 / 110 Output Total 1999 975 / 975 150 / 150 Balance 833.31 / 838.91 -31.90 / -31.90 -40 / -40 Lab / Micro Data Attestation: I reviewed the patient's lab results. Result Diagrams: 09/02/22 04:05 09/02/22 04:05 Labs: Laboratory Results - last 24 hr 09/01/22 15:45: Vancomycin Trough 20.5 H 09/01/22 16:47: POC Glucose 74 09/02/22 04:05: WBC 25.2 H, RBC 2.63 L, Hgb 8.5 L, Hct 26.2 L, MCV 99.6 H, MCH 32.3 H, MCHC 32.4, RDW Std Deviation 50.0 H, RDW Coeff of [place] 13.9, Plt Count 178, MPV 10.7, Immature Gran % (Auto) 0.800, Neut % (Auto) 89.1 H, Lymph % (Auto) 2.7 L, [place] % (Auto) 6.8, Eos % (Auto) 0.3, Baso % (Auto) 0.3, Absolute Neuts (auto) 22.4 H, Absolute Lymphs (auto) 0.68 L, Nucleated RBC % 0, Diff Path Review May , Macrocytosis 1+ 09/02/22 04:05: Sodium 134 L, Potassium 3.9, Chloride 105, Carbon Dioxide 25.0, Anion Gap 4 L, BUN 33 H, Creatinine 1.41 H, Estim Creat Clear Calc 42.81, Est GFR (MDRD) Af Amer 62, Est GFR (MDRD) Non-Af 51 L, BUN/Creatinine Ratio 23.4 H, Glucose 73 L, Calcium 8.5, Total Bilirubin 1.50 H, AST 58 H, ALT 27, Alkaline Phosphatase 200 H, Total Protein 5.7 L, Albumin 1.8 L, Globulin 3.9, Albumin/Globulin Ratio 0.5 L Micro: Microbiology 08/30/22 23:41 Sputum, Induced/Lukens Gram Stain - Final 08/30/22 23:41 Sputum, Induced/Lukens Respiratory Culture - Final Staphylococcus aureus 08/30/22 23:41 Mucosa - Nasopharyngeal Respiratory Panel (PCR) - Final 08/30/22 23:35 Urine Catheter - Catheter Legionella Antigen - Final 08/30/22 23:35 Urine Catheter - Catheter Streptococcus pneumoniae Antigen (M - Final Physical Exam Const no apparent distress Constitutional Narrative: Somnolent but arousable. HEENT normocephalic and head/scalp atraumatic Eyes PERRL and EOMs intact bilaterally Neck supple Neck Narrative: Stable appearing tracheostomy site. Chest inspection of chest normal Resp normal respiratory effort Auscultation: rhonchi and diminished lung sounds Cardio S1 normal heart sound and S2 normal heart sound Rhythm: abnormal rhythm GI normal to inspection, nondistended, normoactive bowel sounds Extremity General Extremity: edema bilateral upper extremity and lower extremity; Negative for clubbing Skin no rashes or lesions noted Neuro Neuro Narrative: Arouses and follows simple commands. Psych Mood & Affect: flat affect Charges/Coding Procedures Hospitalists Procedures: 19682 Critial Care 1st Hr
[2022-09-02] MEDS: Folic Acid 1 MG Tablet PO (08:00)
[2022-09-02] MEDS: Allopurinol 100 MG Tablet PO (08:00)
[2022-09-02] MEDS: Thiamine Hydrochloride 100 MG Tablet PO (08:00)
[2022-09-02] MEDS: 0.9% Saline Lock 10 ML Syringe IV (08:06)
[2022-09-02] MEDS: Vancomycin IV 500 MG/100 ML BAG 100 MG IV (08:06)
[2022-09-02] MEDS: buPROPion 75 MG Tablet PO ×2 (10:01→20:50)
[2022-09-02] MEDS: Furosemide 40 MG Tablet PO (10:01)
[2022-09-02] MEDS: Enoxaparin 40 MG/0.4 ML Syringe SC (10:02)
[2022-09-02] MEDS: Chlorhexidine 15 ML PO ×2 (10:02→20:49)
[2022-09-02] MEDS: Polyethylene Glycol 3350 17 GM PACKET PO (10:03)
[2022-09-02 12:20] LABS: Pathologist Review Reviewed
[2022-09-02] MEDS: Vital AF 1.2 Cal Liquid 1,000 ML 25 ML GT (14:05)
[2022-09-02] MEDS: Cefazolin 2 GM in 0.9% Normal Saline 100 ML IV ×2 (14:17→20:53)
[2022-09-02] MEDS: Albuterol 2.5 MG/3 ML VIAL.NEB. INHALATION (20:05)
[2022-09-02] MEDS: LORazepam 2 MG/ML Syringe 0.5 MG IV (20:45)
[2022-09-02] MEDS: Losartan Potassium 50 MG Tablet PO (20:49)
[2022-09-02] MEDS: Atorvastatin Calcium 80 MG Tablet PO (20:50)
[2022-09-03] VITALS (37 sets, daily range): BP systolic 109–170; BP diastolic 48–96; PULSE 56–89; RESP 14–26; TEMP 36.8–37.2; O2SAT 89–100; BMI 28.0
[2022-09-03 03:39] LABS: Absolute Lymphocyte Count 0.47 X10^3/uL (0.83-4.51); Absolute Neutrophil Count 15.1 X10^3/uL (2.0-7.7); Basophil# 0.03 X10^3/uL; Basophil% 0.2 % (0-1); Eosinophil# 0.16 X10^3/uL; Eosinophils% 0.9 % (0-5); Hematocrit 25.3 % (40-54); Hemoglobin 8.5 g/dL (13.0-16.5); Lymphocyte # 0.47 X10^3/ul (0.83-4.51); Lymphocyte % 2.8 % (19-41); Mean Corp Hgb Conc 33.6 g/dL (32-36); Mean Corpuscular Hgb 32.9 pg (27.0-32.0); Mean Corpuscular Volume 98.1 fL (80-94); Mean Platelet Vol. 10.6 fl (6.2-12.0); Monocyte# 1.21 X10^3/uL; Monocyte% 7.1 % (0-10); NRBC Flagged by Analyzer 0 % (0-5); Neutrophil # 15.07 X10^3/uL (2.7-7.7); Neutrophil % 88.4 % (47-70); POSITIVE DIFFERENTIAL YES; Platelet Count 188 K/mm3 (150-450); RBC Distribution Width CV 14.2 % (11.6-14.6); RBC Distribution Width SD 51.1 fl (35.1-43.9); Red Blood Count 2.58 M/mm3 (4.6-6.2)
[2022-09-03 04:02] LABS: ALB/GLOB Ratio 0.4 RATIO (0.9-2.4); AST(SGOT) 46 U/L (15-37); Alanine Aminotransfer ALT/SGPT 21 U/L (16-61); Albumin, Serum 1.7 g/dL (3.2-5.0); Alkaline Phosphatase 196 U/L (45-117); Anion Gap 5 (5-15); BUN 38 mg/dL (7-18); BUN/Creat Ratio 26.6 RATIO (10-20); Calcium,Total 8.5 mg/dL (8.5-10.1); Chloride 105 mmol/L (98-107); Creatinine, Serum 1.43 mg/dL (0.70-1.30); EST Glomerular Filtration Rate 50 mL/min (>60); Est Glom Filt Rate - Afr Amer 61 mL/min (>60); Estimated Creatinine Clearance 42.21 ml/min; Globulin 4.1 g/dL (2.2-4.2); Glucose 98 mg/dL (74-106); Potassium 3.6 mmol/L (3.5-5.1); Protein, Total 5.8 g/dL (6.4-8.2); Sodium Level 134 mmol/L (136-145)
[2022-09-03 04:04] LABS: Phosphorus 4.2 mg/dL (2.5-4.9)
[2022-09-03 04:06] LABS: Differential Indicated SCAN CRITERIA MET
[2022-09-03 04:18] LABS: Differential Comment SCANNED
[2022-09-03] MEDS: hydrALAZINE 25 MG Tablet PO ×3 (05:22→21:31)
[2022-09-03] MEDS: Cefazolin 2 GM in 0.9% Normal Saline 100 ML IV ×3 (05:23→21:30)
--- NOTE | 2022-09-03 05:46 | PN.CC_ITS ---
Assessment & Plan Assessment/Plan (1) Respiratory failure: QUALIFIERS: Chronicity: acute Respiratory failure complication: hypoxia Qualified Code(s): J96.01 - Acute respiratory failure with hypoxia (2) Pneumonia: PLAN: Plan RECOMMENDATIONS: 1. Wean FiO2 to maintain oxygen saturations at or above 90%. 2. Continue aggressive bronchopulmonary hygiene and suctioning as needed. 3. Continue antimicrobials as ordered. 4. Continue as needed Ativan along with thiamine and folate. 5. Continue tube feeds as tolerated. Dietary advancement per speech therapy. 6. Continue appropriate ICU prophylaxis. IMPRESSIONS: 1. Acute hypoxemic respiratory failure Clinical concern for bilateral multifocal pneumonia as precipitating etiology for acute presentation, with associated mucous plugging. The patient continues to have significant secretions. Plan to continue aggressive bronchopulmonary hygiene along with empiric antimicrobials and scheduled bronchodilators. Continue trach collar supplemental O2 and wean FiO2 for saturations greater than 90%. Ventilatory support can be utilized if needed. 2. History of alcohol dependency The patient is apparently receiving vodka 3 times daily at his nursing facility. Recommend monitoring for any signs of alcohol withdrawal. Continue thiamine and folate as ordered, along with as needed Ativan for symptom control. 3. History of atrial fibrillation/coronary artery disease/questionable COPD/hypertension/hyperlipidemia/AAA/history of laryngeal CA Complicates care, management, recovery and prognosis. Continue home medications as indicated. PT/OT to work with the patient. Speech therapy following regarding dietary advancement. In the interim, okay to initiate tube feeds. TIME: 32 minutes of critical care time, independent of procedures, was spent addressing the patient's acute hypoxemic respiratory failure secondary to multifocal pneumonia, review of all data and collaboration with the care team. Subjective Subjective The patient was seen and examined at the bedside this morning. Events from the last 24 hours have been reviewed. The patient is currently afebrile, hemodynamically stable and maintaining appropriate oxygen saturations on spontaneous mode of mechanical ventilation with an FiO2 of 35%. The patient is documented to be overall net +1 L for the hospitalization. White count has improved to 17,000. Creatinine is stable. The patient was maintained on trach collar supplemental O2 throughout most of the night, but was transition back to pressure support earlier this morning due to increased work of breathing and patient request. He received Ativan only once overnight. Objective Data Objective Data The patient's most recent lab work, culture data and imaging studies have all been personally reviewed. Sputum culture was positive for 3+ MSSA. Vital Signs: Vital Signs Temp Pulse Resp BP Pulse Ox O2 Del Method FiO2 98.4 F 66 14 120/52 L 94 Mechanical Ventilator 35 09/03/22 02:00 09/03/22 05:22 09/03/22 05:00 09/03/22 05:22 09/03/22 05:00 09/03/22 05:00 09/03/22 05:00 Oxygen Delivery Method Mechanical Ventilator Weight: 205 lb 14.588 oz Body Mass Index (BMI) 27.8 Intake & Output: Intake and Output for Last 24 Hours 09/01/22 09/02/22 09/03/22 23:59 23:59 23:59 Intake Total 943.10 / 943.10 820 / 1097.92 307.92 / 307.92 Output Total 975 / 975 675 / 925 250 / 250 Balance -31.90 / -31.90 145 / 172.92 57.92 / 57.92 Lab / Micro Data Attestation: I reviewed the patient's lab results. Result Diagrams: 09/03/22 03:25 09/03/22 03:25 Labs: Laboratory Results - last 24 hr 09/02/22 04:05: Diff Path Review Reviewed 09/03/22 03:25: Phosphorus 4.2, Magnesium 2.0 09/03/22 03:25: WBC 17.0 H, RBC 2.58 L, Hgb 8.5 L, Hct 25.3 L, MCV 98.1 H, MCH 32.9 H, MCHC 33.6, RDW Std Deviation 51.1 H, RDW Coeff of [place] 14.2, Plt Count 188, MPV 10.6, Immature Gran % (Auto) 0.600, Neut % (Auto) 88.4 H, Lymph % ( Auto) 2.8 L, [place] % (Auto) 7.1, Eos % (Auto) 0.9, Baso % (Auto) 0.2, Absolute Neuts (auto) 15.1 H, Absolute Lymphs (auto) 0.47 L, Nucleated RBC % 0, Differential Comment SCANNED 09/03/22 03:25: Sodium 134 L, Potassium 3.6, Chloride 105, Carbon Dioxide 24.0, Anion Gap 5, BUN 38 H, Creatinine 1.43 H, Estim Creat Clear Calc 42.21, Est GFR (MDRD) Af Amer 61, Est GFR (MDRD) Non-Af 50 L, BUN/Creatinine Ratio 26.6 H, Glucose 98, Calcium 8.5, Total Bilirubin 0.90, AST 46 H, ALT 21, Alkaline Phosphatase 196 H, Total Protein 5.8 L, Albumin 1.7 L, Globulin 4.1, Albumin/Globulin Ratio 0.4 L Micro: Microbiology 08/30/22 23:41 Sputum, Induced/Lukens Gram Stain - Final 08/30/22 23:41 Sputum, Induced/Lukens Respiratory Culture - Final Staphylococcus aureus 08/30/22 23:41 Mucosa - Nasopharyngeal Respiratory Panel (PCR) - Final 08/30/22 23:35 Urine Catheter - Catheter Legionella Antigen - Final 08/30/22 23:35 Urine Catheter - Catheter Streptococcus pneumoniae Antigen (M - Final Physical Exam Const alert and no apparent distress Constitutional Narrative: Resting comfortably on pressure support. HEENT normocephalic and head/scalp atraumatic Eyes PERRL and EOMs intact bilaterally Neck supple Neck Narrative: Stable appearing tracheostomy site. Chest inspection of chest normal Resp normal respiratory effort Auscultation: rhonchi and diminished lung sounds Cardio S1 normal heart sound and S2 normal heart sound Rhythm: abnormal rhythm GI normal to inspection, nondistended, normoactive bowel sounds Extremity General Extremity: edema bilateral upper extremity and lower extremity; Negative for clubbing Skin no rashes or lesions noted Neuro Neuro Narrative: Arouses and follows simple commands. Psych Mood & Affect: flat affect Charges/Coding Procedures Hospitalists Procedures: 26663 Critial Care 1st Hr
[2022-09-03] MEDS: Budesonide Respules 0.5 MG/2 ML AMPUL.NEB. INHALATION ×2 (07:01→18:53)
--- NOTE | 2022-09-03 07:14 | PN.HOSP_ITS ---
Reason for Visit Reason for Visit: Diagnoses Encephalopathy, unspecified (08/30/22) Pneumonia, unspecified organism (08/30/22) Acute respiratory failure with hypoxia (08/30/22) Respiratory failure, unspecified, unspecified whether with hypoxia or hypercapnia (08/30/22) Subjective Subjective Still confused, but more interactive. Had to be placed on CPAP. Objective Data Objective Data Vital Signs: Vital Signs Temp Pulse Resp BP Pulse Ox O2 Del Method FiO2 36.9 C 82 21 H 162/61 H 91 Mechanical Ventilator 35 09/03/22 02:00 09/03/22 07:03 09/03/22 07:03 09/03/22 07:00 09/03/22 07:03 09/03/22 07:00 09/03/22 07:00 Oxygen Delivery Method Mechanical Ventilator Weight: 94 kg Body Mass Index (BMI) 28.0 Intake & Output: Intake and Output for Last 24 Hours 09/01/22 09/02/22 09/03/22 23:59 23:59 23:59 Intake Total 943.10 / 943.10 820 / 1097.92 417.92 / 417.92 Output Total 975 / 975 675 / 925 250 / 250 Balance -31.90 / -31.90 145 / 172.92 167.92 / 167.92 Lab / Micro Data Result Diagrams: 09/03/22 03:25 09/03/22 03:25 Labs: Laboratory Results - last 24 hr 09/02/22 04:05: Diff Path Review Reviewed 09/03/22 03:25: Phosphorus 4.2, Magnesium 2.0 09/03/22 03:25: WBC 17.0 H, RBC 2.58 L, Hgb 8.5 L, Hct 25.3 L, MCV 98.1 H, MCH 32.9 H, MCHC 33.6, RDW Std Deviation 51.1 H, RDW Coeff of [place] 14.2, Plt Count 188, MPV 10.6, Immature Gran % (Auto) 0.600, Neut % (Auto) 88.4 H, Lymph % (Auto) 2.8 L, [place] % (Auto) 7.1, Eos % (Auto) 0.9, Baso % (Auto) 0.2, Absolute Neuts (auto) 15.1 H, Absolute Lymphs (auto) 0.47 L, Nucleated RBC % 0, Differential Comment SCANNED 09/03/22 03:25: Sodium 134 L, Potassium 3.6, Chloride 105, Carbon Dioxide 24.0, Anion Gap 5, BUN 38 H, Creatinine 1.43 H, Estim Creat Clear Calc 42.21, Est GFR (MDRD) Af Amer 61, Est GFR (MDRD) Non-Af 50 L, BUN/Creatinine Ratio 26.6 H, Glucose 98, Calcium 8.5, Total Bilirubin 0.90, AST 46 H, ALT 21, Alkaline Phosphatase 196 H, Total Protein 5.8 L, Albumin 1.7 L, Globulin 4.1, Albumin/Globulin Ratio 0.4 L Micro: Microbiology 08/30/22 23:41 Sputum, Induced/Lukens Gram Stain - Final 08/30/22 23:41 Sputum, Induced/Lukens Respiratory Culture - Final Staphylococcus aureus 08/30/22 23:41 Mucosa - Nasopharyngeal Respiratory Panel (PCR) - Final 08/30/22 23:35 Urine Catheter - Catheter Legionella Antigen - Final 08/30/22 23:35 Urine Catheter - Catheter Streptococcus pneumoniae Antigen (M - Final Physical Exam Const Constitutional Narrative: slightly more alert, but still confused. HEENT head/scalp atraumatic and moist oral mucous membranes Resp normal respiratory effort, no retractions, no use of accessory muscles and clear to auscultation bilaterally Cardio regular rate, regular rhythm, S1 normal heart sound and S2 normal heart sound GI normal to inspection, nondistended, normoactive bowel sounds, soft to palpation, non-tender and non-distended Assessment & Plan Assessment/Plan (1) Respiratory failure: QUALIFIERS: Chronicity: acute Respiratory failure complication: hypoxia Qualified Code(s): J96.01 - Acute respiratory failure with hypoxia PLAN: Acute Hypoxic Respiratory Failure secondary to Multifocal Pneumonia, COPD Continue trach and insert recently placed with ENT evaluation at [facility] in the emergency room, ICU physician consultation, continue ventilated status, continue propofol and add fentanyl, continue ATC budesonide therapy, PRN albuterol, maintained on IV Zosyn and Vancomycin with pending MRSA screen, HOB, IS parameters w/ pending sputum cultures, full respiratory viral panel and urine antigens. Bld cx x 2 obtained in the ED. Taken off vent 09/01. Currently on trach mask. (2) Pneumonia: PLAN: + MSSA changed from vanc and pip/tazo to cefazolin Strep and legionella negative (3) Encephalopathy: PLAN: suspect toxic as pt had been receiving 2mg of lorazepam. as mentioned previously, pt was having 3 shots of vodka/d in the hospital and [facility]. Therefore, I feel the liklihood of severe alcohol withdrawal is low. I will discontinue CIWA lorazepam. Pt will have lorazepam ordered, but at a much lower dose--if needed. PLAN: Plan The patient is an 82 y/o M w/ PMHx: Chronic AF, CKD stage III unclear subtype, Nonobstructive CAD, HTN, HLD, Anxiety and Depression, AAA s/p repair following with Vascular, COPD, BPH, Carotid disease, Hx Laryngeal cancer, Chronic Diastolic CHF, Former EtOH abuse, recent admission 08/18/22-08/22/22 following treatment for intractable R knee pain with notable effusion drained per Orthopedic surgery and fluid presentation c/w acute gout flare who now presents to the OSH ED [facility] on 08/30/22 secondary to history of increased fatigue, increased secretions, dyspnea worse with exertion with no recent fever or chills but family concerned thus prompted ED presentation eventually decompensating, requiring tracheostomy placement and ventilation with CT C/A/P with evidence multifocal PNA and transfer to [facility] 08/30/22. Chronic conditions: * EtOH Abuse, previously during recent presentation at [facility] had been sober: SNF per discussions with outside facility ED for unclear reasons administering vodka 3x/daily. DW daughters, I would suspect that he would not go through alcohol withdrawal. I explained that since he is currently sedated, relatively low quantity of alcohol he does use, the likelihood of alcohol withdrawal during this hospitalization. I told them also that it is unlikely I will give him alcohol during this admission. Given his currently somnolence, which may be iatrogenic from 2mg of lorazepam. I am going to change lorazepam to 0.5mg PRN for agitation. * Chronic atrial fibrillation: Appears rate consult at outside facility, continue Coreg with low threshold to hold if pressures decrease. * Nonobstructive CAD: We will continue patient aspirin, statin, Coreg, losartan home regimen. * Chronic COPD: Patient not on chronic inhalers, given presentation we will maintain on ATC budesonide therapy, as needed albuterol and continue treatment as noted #1. * Chronic HFpEF: We will continue aspirin, statin, losartan, Lasix, hydralazine as BP allows, Echo 12/06/2019 with EF 65%, Temporarily holding patient beta- tory therapy as heart rate in the 40s, add back once heart rate appropriate. * Anxiety and depression: Continue patient home bupropion regimen. * Hypertension: Continue home regimen including hydralazine, Lasix, amlodipine, losartan with hold parameters as needed, PRN hydralazine. Temporarily holding beta-tory therapy as heart rate in the 40s, add back once appropriate. * Hyperlipidemia: continue patient home statin therapy. * History of AAA: Patient status post AAA repair 2004, irregularity at the peripheral surface of the aorta is concerning for penetrating atherosclerotic ulcer with bilateral femoral aneurysms,encourage continued outpatient follow- up with vascular surgery as previously arranged. * History laryngeal cancer: s/p resection and XRT, considered in remission, ENT consultation in the ED at outside ED as noted with tracheostomy placement given concern for respiratory decompensation and eventual ventilated status as noted #1. * Former tobacco use: Encourage continued tobacco cessation. * BPH: From current list not on any chronic regimen, monitor for symptoms and may add if necessary. * Chronic Kidney Disease Stage III, unclear subtype: Admission BUN/Cr 30/1.37, baseline renal function appears primarily 1.3-1.5, stay, repeat BMP in AM. DVT prophylaxis: Lovenox. CODE status: Patient during prior presentation did not have healthcare power of commonwealth attorney nor living will in place however he had reported that if he could not make decisions he wanted his daughter to be his medical decision-maker. During prior admission he had confirmed full CODE STATUS and discussed this with outside facility ED physician and he confirmed that family and patient continued a full CODE STATUS also at the facility. Charges/Coding Visit Charges Inpatient E&M: 56232 Subs Hosp L2
[2022-09-03] MEDS: Enoxaparin 40 MG/0.4 ML Syringe SC (08:07)
[2022-09-03] MEDS: Allopurinol 100 MG Tablet PO (08:07)
[2022-09-03] MEDS: buPROPion 75 MG Tablet PO ×2 (08:07→21:33)
[2022-09-03] MEDS: amLODIPine 10 MG Tablet PO (08:07)
[2022-09-03] MEDS: Polyethylene Glycol 3350 17 GM PACKET PO (08:07)
[2022-09-03] MEDS: Chlorhexidine 15 ML PO ×2 (08:08→21:29)
[2022-09-03] MEDS: Thiamine Hydrochloride 100 MG Tablet PO (08:08)
[2022-09-03] MEDS: Folic Acid 1 MG Tablet PO (08:08)
[2022-09-03] MEDS: Losartan Potassium 50 MG Tablet PO ×2 (08:09→21:32)
[2022-09-03] MEDS: Furosemide 40 MG Tablet PO (08:09)
[2022-09-03] MEDS: NYSTATIN 500,000 UNIT/5 ML UDC 500000 UNIT PO ×4 (10:37→21:31)
[2022-09-03] MEDS: Senna/Docusate Sodium 1 Tablet 2 TABLET PO (10:37)
[2022-09-03] MEDS: Nystatin Powder 15gm Bottle 1 APPLIC TOPICAL ×2 (10:37→21:32)
[2022-09-03] MEDS: Vital AF 1.2 Cal Liquid 1,000 ML 45 ML GT (14:31)
[2022-09-03] MEDS: Atorvastatin Calcium 80 MG Tablet PO (21:32)
[2022-09-03] MEDS: 0.9% Saline Lock 10 ML Syringe IV (21:33)
[2022-09-04] VITALS (40 sets, daily range): BP systolic 107–147; BP diastolic 50–106; PULSE 50–73; RESP 14–28; TEMP 36.2–37.1; O2SAT 93–98; BMI 28.3
[2022-09-04] MEDS: CHLORHEXIDINE GLUC 2% CLOTH 1 EACH TOWELETTE TOPICAL (01:49)
[2022-09-04 05:07] LABS: Magnesium 2.2 mg/dL (1.6-2.6); Phosphorus 2.3 mg/dL (2.5-4.9)
--- NOTE | 2022-09-04 05:59 | PCM.PN.INT ---
Assessment & Plan Assessment/Plan (1) Respiratory failure: QUALIFIERS: Chronicity: acute Respiratory failure complication: hypoxia Qualified Code(s): J96.01 - Acute respiratory failure with hypoxia (2) Pneumonia: PLAN: Plan RECOMMENDATIONS: 1. Continue pressure support this morning and attempt to wean to trach collar, if feasible. 2. Continue aggressive bronchopulmonary hygiene and suctioning as needed. 3. Continue antimicrobials as ordered. 4. Continue as needed Ativan along with thiamine and folate. 5. Continue tube feeds as tolerated. 6. Continue appropriate ICU prophylaxis. IMPRESSIONS: 1. Acute hypoxemic respiratory failure Clinical concern for bilateral multifocal MSSA pneumonia as precipitating etiology for acute presentation, with associated mucous plugging. The patient continues to have significant secretions. Plan to continue aggressive bronchopulmonary hygiene along with empiric antimicrobials and scheduled bronchodilators. Continue pressure support this morning, with plans to attempt to wean to trach collar O2 as tolerated. 2. History of alcohol dependency The patient is apparently receiving vodka 3 times daily at his nursing facility. Recommend monitoring for any signs of alcohol withdrawal. Continue thiamine and folate as ordered, along with as needed Ativan for symptom control. 3. History of atrial fibrillation/coronary artery disease/questionable COPD/hypertension/hyperlipidemia/AAA/history of laryngeal CA Complicates care, management, recovery and prognosis. Continue home medications as indicated. PT/OT to work with the patient. Speech therapy following regarding dietary advancement. In the interim, okay to continue tube feeds. TIME: 31 minutes of critical care time, independent of procedures, was spent addressing the patient's acute hypoxemic respiratory failure secondary to multifocal pneumonia, review of all data and collaboration with the care team. Subjective Subjective The patient was seen and examined at the bedside this morning. Events from the last 24 hours have been reviewed. The patient is currently afebrile, hemodynamically stable and maintaining appropriate oxygen saturations on spontaneous mode mechanical ventilation with an FiO2 requirement of 30%. The patient did not require administration of Ativan overnight. Nursing staff did report that his thick secretion output has been slowly improving. He is currently tolerating tube feeds. The patient is documented to be overall net +2.3 L for the hospitalization. Objective Data Objective Data The patient's most recent lab work, culture data and imaging studies have all been personally reviewed. Sputum culture was positive for 3+ MSSA. Vital Signs: Vital Signs Temp Pulse Resp BP Pulse Ox O2 Del Method FiO2 98.8 F 65 19 H 139/56 H 97 Mechanical Ventilator 40 09/04/22 04:00 09/04/22 05:03 09/04/22 05:03 09/04/22 04:00 09/04/22 05:03 09/04/22 04:00 09/04/22 04:00 Oxygen Delivery Method Mechanical Ventilator Weight: 207 lb 3.752 oz Body Mass Index (BMI) 28.0 Intake & Output: Intake and Output for Last 24 Hours 09/02/22 09/03/22 09/04/22 23:59 23:59 23:59 Intake Total 820 / 1097.92 1870.00 / 2120.00 570 / 570 Output Total 675 / 925 725 / 1075 350 / 350 Balance 145 / 172.92 1145.00 / 1045.00 220 / 220 Lab / Micro Data Attestation: I reviewed the patient's lab results. Result Diagrams: 09/03/22 03:25 09/03/22 03:25 Labs: Laboratory Results - last 24 hr 09/04/22 04:40: Phosphorus 2.3 L, Magnesium 2.2 Micro: Microbiology 08/30/22 23:41 Sputum, Induced/Lukens Gram Stain - Final 08/30/22 23:41 Sputum, Induced/Lukens Respiratory Culture - Final Staphylococcus aureus 08/30/22 23:41 Mucosa - Nasopharyngeal Respiratory Panel (PCR) - Final 08/30/22 23:35 Urine Catheter - Catheter Legionella Antigen - Final 08/30/22 23:35 Urine Catheter - Catheter Streptococcus pneumoniae Antigen (M - Final Physical Exam Const alert and no apparent distress Constitutional Narrative: Resting comfortably on pressure support. HEENT normocephalic and head/scalp atraumatic Eyes PERRL and EOMs intact bilaterally Neck supple Neck Narrative: Stable appearing tracheostomy site. Chest inspection of chest normal Resp normal respiratory effort Auscultation: rhonchi and diminished lung sounds Cardio S1 normal heart sound and S2 normal heart sound Rhythm: abnormal rhythm GI normal to inspection, nondistended, normoactive bowel sounds Extremity General Extremity: edema bilateral upper extremity and lower extremity; Negative for clubbing Skin no rashes or lesions noted Neuro Neuro Narrative: Arouses and follows simple commands. Psych Mood & Affect: flat affect Charges/Coding Procedures Hospitalists Procedures: 62471 Critial Care 1st Hr
[2022-09-04] MEDS: hydrALAZINE 25 MG Tablet PO ×2 (06:49→13:22)
[2022-09-04] MEDS: Cefazolin 2 GM in 0.9% Normal Saline 100 ML IV ×3 (06:52→22:03)
[2022-09-04] MEDS: Budesonide Respules 0.5 MG/2 ML AMPUL.NEB. INHALATION ×2 (06:59→19:01)
--- NOTE | 2022-09-04 07:18 | PN.HOSP_ITS ---
Reason for Visit Reason for Visit: Diagnoses Encephalopathy, unspecified (08/30/22) Pneumonia, unspecified organism (08/30/22) Acute respiratory failure with hypoxia (08/30/22) Respiratory failure, unspecified, unspecified whether with hypoxia or hypercapnia (08/30/22) Subjective Subjective Hemoptysis. Had not lorazepam since the . Objective Data Objective Data Vital Signs: Vital Signs Temp Pulse Resp BP Pulse Ox O2 Del Method FiO2 36.7 C 62 22 H 121/50 H 96 Mechanical Ventilator 30 09/04/22 06:00 09/04/22 06:59 09/04/22 06:59 09/04/22 06:49 09/04/22 07:07 09/04/22 07:07 09/04/22 07:07 Oxygen Delivery Method Mechanical Ventilator Weight: 94.9 kg Body Mass Index (BMI) 28.3 Intake & Output: Intake and Output for Last 24 Hours 09/02/22 09/03/22 09/04/22 23:59 23:59 23:59 Intake Total 820 / 1097.92 1870.00 / 2120.00 770 / 770 Output Total 675 / 925 725 / 1075 600 / 600 Balance 145 / 172.92 1145.00 / 1045.00 170 / 170 Lab / Micro Data Result Diagrams: 09/03/22 03:25 09/03/22 03:25 Labs: Laboratory Results - last 24 hr 09/04/22 04:40: Phosphorus 2.3 L, Magnesium 2.2 Micro: Microbiology 08/30/22 23:41 Sputum, Induced/Lukens Gram Stain - Final 08/30/22 23:41 Sputum, Induced/Lukens Respiratory Culture - Final Staphylococcus aureus 08/30/22 23:41 Mucosa - Nasopharyngeal Respiratory Panel (PCR) - Final 08/30/22 23:35 Urine Catheter - Catheter Legionella Antigen - Final 08/30/22 23:35 Urine Catheter - Catheter Streptococcus pneumoniae Antigen (M - Final Physical Exam Const alert Constitutional Narrative: more alert and interactive, though still confused. HEENT head/scalp atraumatic and moist oral mucous membranes Resp normal respiratory effort, no retractions and no use of accessory muscles Cardio regular rate, regular rhythm, S1 normal heart sound and S2 normal heart sound GI normal to inspection, nondistended, normoactive bowel sounds, soft to palpation and non-tender Extremity normal to inspection Assessment & Plan Assessment/Plan (1) Respiratory failure: QUALIFIERS: Chronicity: acute Respiratory failure complication: hypoxia Qualified Code(s): J96.01 - Acute respiratory failure with hypoxia PLAN: Acute Hypoxic Respiratory Failure secondary to Multifocal Pneumonia, COPD Continue trach and insert recently placed with ENT evaluation at [facility] in the emergency room, ICU physician consultation, continue ventilated status, continue propofol and add fentanyl, continue ATC budesonide therapy, PRN albuterol, maintained on IV Zosyn and Vancomycin with pending MRSA screen, HOB, IS parameters w/ pending sputum cultures, full respiratory viral panel and urine antigens. Bld cx x 2 obtained in the ED. Taken off vent 09/01. But placed back on 09/02. (2) Pneumonia: PLAN: + MSSA changed from vanc and pip/tazo to cefazolin Strep and legionella negative (3) Encephalopathy: PLAN: improved suspect multifactorial from prior CVA + either mild cognitive impairment v dementia + toxic as pt had been receiving 2mg of lorazepam. as mentioned previously, pt was having 3 shots of vodka/d in the hospital and at the intermediate. Therefore, I feel the liklihood of severe alcohol withdrawal is low. I will discontinue CIWA lorazepam. Pt will have lorazepam ordered, but at a much lower dose--if needed. (4) Hemoptysis: PLAN: may be due to pneumonia dc lovenox monitor PLAN: Plan The patient is an 82 y/o M w/ PMHx: Chronic AF, CKD stage III unclear subtype, Nonobstructive CAD, HTN, HLD, Anxiety and Depression, AAA s/p repair following w ith Vascular, COPD, BPH, Carotid disease, Hx Laryngeal cancer, Chronic Diastolic CHF, Former EtOH abuse, recent admission 08/18/22-08/22/22 following treatment for intractable R knee pain with notable effusion drained per Orthopedic surgery and fluid presentation c/w acute gout flare who now presents to the OS ED [facility] on 08/30/22 secondary to history of increased fatigue, increased secretions, dyspnea worse with exertion with no recent fever or chills but family concerned thus prompted ED presentation eventually decompensating, requiring tracheostomy placement and ventilation with CT C/A/P with evidence multifocal PNA and transfer to [facility] 08/30/22. Chronic conditions: * EtOH Abuse, previously during recent presentation at [facility] had been sober: SNF per discussions with outside facility ED for unclear reasons administering vodka 3x/daily. DW daughters, I would suspect that he would not go through alcohol withdrawal. I explained that since he is currently sedated, relatively low quantity of alcohol he does use, the likelihood of alcohol withdrawal during this hospitalization. I told them also that it is unlikely I will give him alcohol during this admission. Given his currently somnolence, which may be iatrogenic from 2mg of lorazepam. I am going to change lorazepam to 0.5mg PRN for agitation. * Chronic atrial fibrillation: Appears rate consult at outside facility, continue Coreg with low threshold to hold if pressures decrease. * Nonobstructive CAD: We will continue patient aspirin, statin, Coreg, losartan home regimen. * Chronic COPD: Patient not on chronic inhalers, given presentation we will maintain on ATC budesonide therapy, as needed albuterol and continue treatment as noted #1. * Chronic HFpEF: We will continue aspirin, statin, losartan, Lasix, hydralazine as BP allows, Echo 12/06/2019 with EF 65%, Temporarily holding patient beta- tory therapy as heart rate in the 40s, add back once heart rate appropriate. * Anxiety and depression: Continue patient home bupropion regimen. * Hypertension: Continue home regimen including hydralazine, Lasix, amlodipine, losartan with hold parameters as needed, PRN hydralazine. Temporarily holding beta-tory therapy as heart rate in the 40s, add back once appropriate. * Hyperlipidemia: continue patient home statin therapy. * History of AAA: Patient status post AAA repair 2004, irregularity at the peripheral surface of the aorta is concerning for penetrating atherosclerotic ulcer with bilateral femoral aneurysms,encourage continued outpatient follow- up with vascular surgery as previously arranged. * History laryngeal cancer: s/p resection and XRT, considered in remission, ENT consultation in the ED at outside ED as noted with tracheostomy placement given concern for respiratory decompensation and eventual ventilated status as noted #1. * Former tobacco use: Encourage continued tobacco cessation. * BPH: From current list not on any chronic regimen, monitor for symptoms and may add if necessary. * Chronic Kidney Disease Stage III, unclear subtype: Admission BUN/Cr 30/1.37, baseline renal function appears primarily 1.3-1.5, stay, repeat BMP in AM. 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 During prior admission he had confirmed full CODE STATUS and discussed this with outside facility ED physician and he confirmed that family and patient continued a full CODE STATUS also at the facility. Charges/Coding Visit Charges Inpatient E&M: 22212 Subs Hosp L2
[2022-09-04] MEDS: Folic Acid 1 MG Tablet PO (07:42)
[2022-09-04] MEDS: Allopurinol 100 MG Tablet PO (07:42)
[2022-09-04] MEDS: Chlorhexidine 15 ML PO ×2 (07:42→21:16)
[2022-09-04] MEDS: Thiamine Hydrochloride 100 MG Tablet PO (07:42)
[2022-09-04] MEDS: Nystatin Powder 15gm Bottle 1 APPLIC TOPICAL ×2 (07:50→21:16)
[2022-09-04] MEDS: NYSTATIN 500,000 UNIT/5 ML UDC 500000 UNIT PO ×4 (07:52→21:16)
[2022-09-04] MEDS: Polyethylene Glycol 3350 17 GM PACKET PO (07:52)
[2022-09-04] MEDS: Senna/Docusate Sodium 1 Tablet 2 TABLET PO (07:53)
[2022-09-04] MEDS: Furosemide 40 MG Tablet PO (07:53)
[2022-09-04] MEDS: buPROPion 75 MG Tablet PO ×2 (07:54→21:15)
[2022-09-04] MEDS: Vital AF 1.2 Cal Liquid 1,000 ML 55 ML GT (08:18)
[2022-09-04] MEDS: Losartan Potassium 50 MG Tablet PO ×2 (11:13→21:15)
[2022-09-04] MEDS: amLODIPine 10 MG Tablet PO (11:13)
[2022-09-04 17:40] LABS: Bedside Glucose 115 mg/dL (74-106)
[2022-09-04] MEDS: Atorvastatin Calcium 80 MG Tablet PO (21:16)
[2022-09-05] VITALS (34 sets, daily range): BP systolic 117–145; BP diastolic 47–106; PULSE 47–70; RESP 14–25; TEMP 36.3–36.7; O2SAT 91–100; BMI 28.2
[2022-09-05] MEDS: Vital AF 1.2 Cal Liquid 1,000 ML 55 ML GT (01:29)
[2022-09-05 06:16] LABS: Base Excess 0 mmol/L (-2 to +2); Bicarbonate 23.7 mmol/L (22-26); Blood Gas Specimen Type ART; FI02 30; Mode CPAP/PS; O2 Delivery Device Adult Vent; PEEP 5; PO2 62 mmHG (75-100); PS 5; SITE L Radial; SO2 93 % (95-99); Total Carbon Dioxide 25 mmol/L; pCO2 33.9 mmHg (35-45); pH 7.45 (7.35-7.45)
[2022-09-05] MEDS: Cefazolin 2 GM in 0.9% Normal Saline 100 ML IV ×3 (06:42→22:23)
[2022-09-05] MEDS: Budesonide Respules 0.5 MG/2 ML AMPUL.NEB. INHALATION ×2 (06:51→19:50)
--- NOTE | 2022-09-05 06:54 | PCM.PN.INT ---
Assessment & Plan Assessment/Plan (1) Respiratory failure: QUALIFIERS: Chronicity: acute Respiratory failure complication: hypoxia Qualified Code(s): J96.01 - Acute respiratory failure with hypoxia (2) Pneumonia: PLAN: Plan RECOMMENDATIONS: 1. Continue pressure support this morning and attempt to wean to trach collar, if feasible. 2. Continue aggressive bronchopulmonary hygiene and suctioning as needed. 3. Complete antibiotic course later today 4. Initiate phenobarb taper. Continue as needed Ativan. Discontinue thiamine and folate. 5. Continue tube feeds as tolerated. 6. Continue appropriate ICU prophylaxis. IMPRESSIONS: 1. Acute hypoxemic respiratory failure Clinical concern for bilateral multifocal MSSA pneumonia as precipitating etiology for acute presentation, with associated mucous plugging. The patient continues to have significant secretions despite antibiotics. Plan to continue aggressive bronchopulmonary hygiene along with empiric antimicrobials and scheduled bronchodilators. Continue pressure support this morning, with plans to attempt to wean to trach collar O2 as tolerated. We will attempt to address alcohol dependency to see if cough can improve 2. History of alcohol dependency/toxic-metabolic encephalopathy The patient is apparently receiving vodka 3 times daily at his nursing facility. Recommend monitoring for any signs of alcohol withdrawal. Patient has received thiamine and folate for 7 days. These can likely be discontinued. Will add phenobarbital taper for more basal control to see if mentation can be stabilized. 3. History of atrial fibrillation/coronary artery disease/questionable COPD/hypertension/hyperlipidemia/AAA/history of laryngeal CA Complicates care, management, recovery and prognosis. Continue home medications as indicated. PT/OT to work with the patient. Speech therapy following regarding dietary advancement. In the interim, okay to continue tube feeds through NG. TIME: 32 minutes of critical care time, independent of procedures, was spent addressing the patient's acute hypoxemic respiratory failure secondary to multifocal pneumonia, review of all data and collaboration with the care team. Subjective Subjective Patient did okay overnight. Patient was able to pass a breathing trial this morning while on CPAP. However, patient continues to have significant secretions requiring suctioning and intermittent agitation. Nursing has had difficulty with finding the appropriate amount of Ativan to control withdrawal without overly sedating the patient. Patient is not reporting any pain. Objective Data Objective Data Vital Signs: Vital Signs Temp Pulse Resp BP Pulse Ox O2 Del Method FiO2 36.5 C L 64 21 H 139/78 H 97 Mechanical Ventilator 30 09/05/22 02:00 09/05/22 04:55 09/05/22 05:19 09/05/22 04:00 09/05/22 04:55 09/05/22 04:00 09/05/22 04:00 Oxygen Delivery Method Mechanical Ventilator Weight: 94.5 kg Body Mass Index (BMI) 28.2 Intake & Output: Intake and Output for Last 24 Hours 09/03/22 09/04/22 09/05/22 23:59 23:59 23:59 Intake Total 1870.00 / 2120.00 3138.08 / 3138.08 945.08 / 945.08 Output Total 725 / 1075 1525 / 1825 300 / 300 Balance 1145.00 / 1045.00 1613.08 / 1313.08 645.08 / 645.08 Lab / Micro Data Attestation: I reviewed the patient's lab results. Result Diagrams: 09/03/22 03:25 09/03/22 03:25 Labs: Laboratory Results - last 24 hr 09/04/22 17:16: POC Glucose 115 H Micro: Microbiology 08/30/22 23:41 Sputum, Induced/Lukens Gram Stain - Final 08/30/22 23:41 Sputum, Induced/Lukens Respiratory Culture - Final Staphylococcus aureus 08/30/22 23:41 Mucosa - Nasopharyngeal Respiratory Panel (PCR) - Final 08/30/22 23:35 Urine Catheter - Catheter Legionella Antigen - Final 08/30/22 23:35 Urine Catheter - Catheter Streptococcus pneumoniae Antigen (M - Final ABG Data ABG results: ABG 09/05/22 06:10 Specimen Type ART Sample Site L Radial pH 7.45 Bicarbonate Actual 23.7 Total CO2 25 Base Excess 0 O2 Saturation 93 L O2 % 30 ABG pCO2 33.9 L ABG pO2 62 L Dougie Test N/A O2 Delivery Device Adult Vent Vent Mode CPAP/PS POC PEEP 5 POC Pressure Suppt 5 Attestation: I personally reviewed and interpreted this ABG as follows: (Relatively normal acid-base with increased AA gradient) Physical Exam Const alert and no apparent distress Constitutional Narrative: Resting comfortably on pressure support. HEENT normocephalic and head/scalp atraumatic Eyes PERRL and EOMs intact bilaterally Neck supple Neck Narrative: Stable appearing tracheostomy site. Chest inspection of chest normal Resp normal respiratory effort Auscultation: rhonchi throughout (Improves with suctioning, but patient unable to cough clear) and diminished lung sounds Cardio S1 normal heart sound and S2 normal heart sound Rhythm: abnormal rhythm GI normal to inspection, nondistended, normoactive bowel sounds Extremity General Extremity: edema bilateral upper extremity and lower extremity; Negative for clubbing Skin no rashes or lesions noted Neuro Neuro Narrative: Arouses and follows simple commands. Psych Mood & Affect: flat affect Charges/Coding Procedures Hospitalists Procedures: 67962 Critial Care 1st Hr
[2022-09-05 06:59] LABS: Absolute Lymphocyte Count 0.41 X10^3/uL (0.83-4.51); Absolute Neutrophil Count 5.6 X10^3/uL (2.0-7.7); Basophil# 0.02 X10^3/uL; Basophil% 0.3 % (0-1); Eosinophils% 2.7 % (0-5); Hematocrit 24.2 % (40-54); Hemoglobin 7.9 g/dL (13.0-16.5); Lymphocyte # 0.41 X10^3/ul (0.83-4.51); Lymphocyte % 5.6 % (19-41); Mean Corp Hgb Conc 32.6 g/dL (32-36); Mean Corpuscular Hgb 31.7 pg (27.0-32.0); Mean Corpuscular Volume 97.2 fL (80-94); Monocyte# 1.03 X10^3/uL; NRBC Flagged by Analyzer 0 % (0-5); Neutrophil # 5.63 X10^3/uL (2.7-7.7); Neutrophil % 76.4 % (47-70); POSITIVE DIFFERENTIAL YES; Platelet Count 184 K/mm3 (150-450); Red Blood Count 2.49 M/mm3 (4.6-6.2); White Blood Count 7.4 K/mm3 (4.4-11.0)
--- NOTE | 2022-09-05 07:01 | PN.HOSP_ITS ---
Reason for Visit Reason for Visit: Shortness of breath/hypoxia Subjective Subjective Mr. Washington is an 82-year-old white male who presented to the emergency depa rtment at outside facility on 08/30/2022 with shortness of breath and hypoxia. He presented to outside facility with increasing fatigue, secretions, dyspnea worse with exertion but no fever or chills. Patient was transferred per her request. Patient has a chronic tracheostomy site from previous laryngeal cancer. At outside facility he was placed on Levaquin and tracheostomy tube was placed and he was placed on a ventilator and sedated. He does have history of alcohol abuse. He was admitted to the intensive care unit with acute hypoxemic respiratory failure and pulmonary concern was for bilateral multifocal pneumonia with associated mucous plugging. He was maintained on IV antibiotics and was found to have an MSSA pneumonia. He was able to be taken off the ventilator on 09/01/2022 however required placement back on the ventilator on 09/02/2022. He has been encephalopathic with altered mental status throughout his hospital course and developed hemoptysis. His subcu Lovenox was discontinued at that point. He has been on spontaneous mode of mechanical ventilation as of recently with an FiO2 requirement of 30%. He is tolerating tube feeds well. It appears that today should be his last day of IV antibiotics. No issues overnight. Patient is alert and following commands at the time of my evaluation. Being on the side of his bed asking to be repositioned and indicating he would like the TV turned on. Per discussion with nursing no significant issues overnight either. Objective Data Objective Data Vital Signs: Vital Signs Temp Pulse Resp BP Pulse Ox O2 Del Method FiO2 97.7 F L 64 21 H 139/78 H 97 Mechanical Ventilator 30 09/05/22 02:00 09/05/22 04:55 09/05/22 05:19 09/05/22 04:00 09/05/22 04:55 09/05/22 04:00 09/05/22 04:00 Oxygen Delivery Method Mechanical Ventilator Weight: 94.5 kg Body Mass Index (BMI) 28.2 Intake & Output: Intake and Output for Last 24 Hours 09/03/22 09/04/22 09/05/22 23:59 23:59 23:59 Intake Total 1870.00 / 2120.00 3138.08 / 3138.08 945.08 / 945.08 Output Total 725 / 1075 1525 / 1825 300 / 300 Balance 1145.00 / 1045.00 1613.08 / 1313.08 645.08 / 645.08 Lab / Micro Data Result Diagrams: 09/05/22 06:50 09/05/22 06:50 Labs: Laboratory Results - last 24 hr 09/04/22 17:16: POC Glucose 115 H Micro: Microbiology 08/30/22 23:41 Sputum, Induced/Lukens Gram Stain - Final 08/30/22 23:41 Sputum, Induced/Lukens Respiratory Culture - Final Staphylococcus aureus 08/30/22 23:41 Mucosa - Nasopharyngeal Respiratory Panel (PCR) - Final 08/30/22 23:35 Urine Catheter - Catheter Legionella Antigen - Final 08/30/22 23:35 Urine Catheter - Catheter Streptococcus pneumoniae Antigen (M - Final ABG Data ABG results: ABG 09/05/22 06:10 Specimen Type ART Sample Site L Radial pH 7.45 Bicarbonate Actual 23.7 Total CO2 25 Base Excess 0 O2 Saturation 93 L O2 % 30 ABG pCO2 33.9 L ABG pO2 62 L Dougie Test N/A O2 Delivery Device Adult Vent Vent Mode CPAP/PS POC PEEP 5 POC Pressure Suppt 5 Physical Exam Const alert and no apparent distress Constitutional Narrative: Chronically ill-appearing, elderly, white male lying in bed, appears comfortable at this time, banging on the side of his bed indicating he would like repositioned and indicates via hand gestures that he would like his television turned on. Follows all commands without difficulty HEENT head/scalp atraumatic and moist oral mucous membranes HEENT Narrative: Edentulous, no thrush Head and Scalp: normocephalic Neck Neck Narrative: Shiley [address] and patient on ventilator with trachea midline Resp no retractions, no use of accessory muscles and clear to auscultation bilaterally Resp Narrative: Diminished but clear at this time, slight tachypnea Auscultation: Negative for rales, rhonchi or wheezes Cardio regular rhythm, S1 normal heart sound, S2 normal heart sound, no murmurs, no rub, no gallops and no clicks Cardio Narrative: Mild bradycardia cardia GI normal to inspection, nondistended, normoactive bowel sounds, soft to palpation and non-tender Extremity no clubbing, cyanosis or edema Extremity Narrative: 2+ pedal pulses Neuro moves all extremities and no focal motor deficits Neuro Narrative: Follows commands well, moves all extremities without focal deficit Psych Psych Narrative: Appears calm at this time Assessment & Plan Assessment/Plan (1) Hemoptysis: (2) Pneumonia: (3) Acute respiratory failure with hypoxia: (4) Toxic metabolic encephalopathy: (5) Leukocytosis: (6) Hypokalemia: PLAN: Plan Acute hypoxic respiratory failure secondary to MSSA pneumonia -Patient required tracheostomy tube placement and his old tracheostomy site at outside facility and was placed on a ventilator prior to admission -Was weaned from mechanical ventilation on 09/01/2022 but required placement back on mechanical ventilator on 09/02/2022 -Currently requiring 30% FiO2 on spontaneous mode of mechanical ventilation -Continue to wean as able -Pneumo and Legionella antigens are negative -Respiratory panel was negative -Continue antibiotics through today it appears the stop date for antibiotic should be tomorrow -Continue budesonide -Add scheduled Robitussin to thin secretions -Add vest therapy to help with mucous plugging -Continue diuresis as ordered -Continue tube feed as ordered -Leukocytosis is improving but pending this a.m. -Appreciate pulmonary/critical care input MSSA pneumonia -Appears to be on day 7 of 7 for antibiotics -Should be able to discontinue antibiotics tomorrow Hemoptysis -Subcu Lovenox was discontinued due to this -It appears that it was thought that this was related to his pneumonia -Hemoglobin down a bit today we will continue to hold Lovenox -Hemoglobin is down slightly from his previous hospitalization however stable during this hospitalization thus far Chronic macrocytic anemia -Hemoglobin is down a bit today--> no current signs of obvious bleeding but patient did have some hemoptysis -Continue to monitor and repeat CBC in a.m. Leukocytosis -Related to the above -Has now normalized Toxic/metabolic encephalopathy -Overall improved per report -Suspected to be multifactorial -Continue to monitor clinically CKD stage IIIa -Baseline serum creatinine appears to fluctuate between 1.15 and 1.4 -Current serum creatinine is pending however previous serum creatinine has appeared to be stable in the 1.4-1.5 range -Continue to monitor -Avoid nephrotoxins as able -Adjust medications as needed Hypophosphatemia -Phos level down to 2.0 today -Phosphorus replacement IV and repeat Phos level in a.m. History of gout -Recent admission for this -Continue home allopurinol History of alcohol abuse -Patient reported not drinking at previous admission for gout -Per discussion outside facility emergency department it was reported he was drinking vodka 3 drinks daily -As needed Ativan has been ordered -It appears that hemodialysis patient care specialist has started phenobarbital this morning -Continue to monitor Chronic atrial fibrillation -Coreg is on hold secondary to patient having some bradycardia--> reinitiate as able -Patient is not on chronic anticoagulation Nonobstructive CAD -Continue aspirin -Continue statin -Hold home Coreg with bradycardia -Continue losartan -Continue home hydralazine -Continue home Lasix BPH -Continue Flomax as able Chronic HFpEF -Continue home diuretics -Last echocardiogram from 12/06/2019 showed EF of 65% -Coreg is on hold for some bradycardia -Continue home losartan -Continue home hydralazine HTN/HPL -Coreg is currently on hold secondary bradycardia -Continue all other medication for blood pressure -Continue statin History of stroke -Continue home aspirin History of AAA -Status post repair in 2004 -Imaging shows irregularity at the peripheral surface of the aorta concerning for 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 Charges/Coding Visit Charges Inpatient E&M: 48767 Init Hosp L2
[2022-09-05 07:20] LABS: ALB/GLOB Ratio 0.4 RATIO (0.9-2.4); AST(SGOT) 94 U/L (15-37); Alanine Aminotransfer ALT/SGPT 15 U/L (16-61); Albumin, Serum 1.5 g/dL (3.2-5.0); Alkaline Phosphatase 397 U/L (45-117); Anion Gap 4 (5-15); BUN 42 mg/dL (7-18); BUN/Creat Ratio 34.1 RATIO (10-20); Calcium,Total 7.9 mg/dL (8.5-10.1); Chloride 108 mmol/L (98-107); Creatinine, Serum 1.23 mg/dL (0.70-1.30); EST Glomerular Filtration Rate 60 mL/min (>60); Est Glom Filt Rate - Afr Amer 72 mL/min (>60); Estimated Creatinine Clearance 49.07 ml/min; Globulin 4.1 g/dL (2.2-4.2); Glucose 131 mg/dL (74-106); Potassium 3.3 mmol/L (3.5-5.1); Protein, Total 5.6 g/dL (6.4-8.2); Sodium Level 137 mmol/L (136-145)
[2022-09-05 07:40] LABS: Differential Indicated SCAN CRITERIA MET
[2022-09-05] MEDS: Phenobarbital 32.4 MG Tablet GT ×5 (08:03→21:57)
[2022-09-05] MEDS: NYSTATIN 500,000 UNIT/5 ML UDC 500000 UNIT PO ×4 (08:03→21:57)
[2022-09-05] MEDS: buPROPion 75 MG Tablet PO ×2 (08:04→21:57)
[2022-09-05] MEDS: Losartan Potassium 50 MG Tablet PO ×2 (08:04→21:57)
[2022-09-05] MEDS: Nystatin Powder 15gm Bottle 1 APPLIC TOPICAL ×2 (08:05→21:57)
[2022-09-05] MEDS: amLODIPine 10 MG Tablet PO (08:05)
[2022-09-05] MEDS: Allopurinol 100 MG Tablet PO (08:05)
[2022-09-05] MEDS: CHLORHEXIDINE GLUC 2% CLOTH 1 EACH TOWELETTE TOPICAL (08:06)
[2022-09-05] MEDS: Chlorhexidine 15 ML PO ×2 (08:07→22:03)
[2022-09-05] MEDS: Furosemide 40 MG Tablet PO (08:11)
[2022-09-05] MEDS: Loperamide 2 MG Capsule PO (08:18)
[2022-09-05] MEDS: Dicyclomine 10 MG Capsule 20 MG PO (08:18)
[2022-09-05 09:19] LABS: Magnesium 1.9 mg/dL (1.6-2.6)
--- NOTE | 2022-09-05 09:54 | CASEMGMT ---
Addendum entered by Nicolle Yanez 09/05/22 10:56: Social Work Eileen from [facility] called SW back. Pt is there skilled under his Medicare, has been there since the . Pt was a 1-2 assist and was transferring in and out of his wheelchair, not really ambulating. DAVID Phelps Original Note: Social Work SW participated in ICU rounds this morning. Pt remains on a vent at this time. 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 DAVID Phelps
--- NOTE | 2022-09-05 10:03 | CASEMGMT ---
Social Work Pt has healthcare POA with the living will provision initialed, Miryam Godfrey Erasmo(daughter) is listed as pt's POA. DAVID Phelps
[2022-09-05] MEDS: Potassium Chloride Oral Soln 20 MEQ/15 ML UDC 40 MEQ NG (10:50)
[2022-09-05] MEDS: guaiFENesin 10 ML UDC (200MG/10ML) NG ×3 (10:58→21:56)
[2022-09-05] MEDS: hydrALAZINE 25 MG Tablet PO ×2 (14:35→21:56)
[2022-09-05] MEDS: Atorvastatin Calcium 80 MG Tablet PO (21:57)
[2022-09-06] VITALS (33 sets, daily range): BP systolic 91–154; BP diastolic 48–102; PULSE 53–68; RESP 12–27; TEMP 36.2–37.2; O2SAT 91–99; BMI 29.0
[2022-09-06] MEDS: Phenobarbital 32.4 MG Tablet GT ×6 (02:42→23:26)
[2022-09-06 03:22] LABS: Absolute Lymphocyte Count 0.64 X10^3/uL (0.83-4.51); Absolute Neutrophil Count 6.5 X10^3/uL (2.0-7.7); Basophil# 0.02 X10^3/uL; Basophil% 0.2 % (0-1); Eosinophil# 0.22 X10^3/uL; Eosinophils% 2.6 % (0-5); Hematocrit 24.9 % (40-54); Hemoglobin 8.1 g/dL (13.0-16.5); Lymphocyte # 0.64 X10^3/ul (0.83-4.51); Lymphocyte % 7.6 % (19-41); Mean Corp Hgb Conc 32.5 g/dL (32-36); Mean Corpuscular Hgb 31.8 pg (27.0-32.0); Mean Corpuscular Volume 97.6 fL (80-94); Mean Platelet Vol. 11.1 fl (6.2-12.0); Monocyte# 1.01 X10^3/uL; Monocyte% 11.9 % (0-10); NRBC Flagged by Analyzer 0 % (0-5); Neutrophil # 6.51 X10^3/uL (2.7-7.7); Platelet Count 184 K/mm3 (150-450); RBC Distribution Width CV 14.1 % (11.6-14.6); RBC Distribution Width SD 50.9 fl (35.1-43.9); Red Blood Count 2.55 M/mm3 (4.6-6.2); White Blood Count 8.5 K/mm3 (4.4-11.0)
[2022-09-06 03:33] LABS: ALB/GLOB Ratio 0.3 RATIO (0.9-2.4); AST(SGOT) 77 U/L (15-37); Alanine Aminotransfer ALT/SGPT 12 U/L (16-61); Albumin, Serum 1.5 g/dL (3.2-5.0); Alkaline Phosphatase 386 U/L (45-117); Anion Gap 5 (5-15); BUN 44 mg/dL (7-18); BUN/Creat Ratio 37.9 RATIO (10-20); Calcium,Total 7.9 mg/dL (8.5-10.1); Chloride 108 mmol/L (98-107); Creatinine, Serum 1.16 mg/dL (0.70-1.30); EST Glomerular Filtration Rate 64 mL/min (>60); Est Glom Filt Rate - Afr Amer 77 mL/min (>60); Estimated Creatinine Clearance 52.03 ml/min; Globulin 4.3 g/dL (2.2-4.2); Glucose 114 mg/dL (74-106); Phosphorus 2.7 mg/dL (2.5-4.9); Potassium 3.7 mmol/L (3.5-5.1); Protein, Total 5.8 g/dL (6.4-8.2); Sodium Level 138 mmol/L (136-145)
[2022-09-06] MEDS: guaiFENesin 10 ML UDC (200MG/10ML) NG ×4 (06:32→23:38)
[2022-09-06] MEDS: hydrALAZINE 25 MG Tablet PO ×3 (06:32→21:42)
[2022-09-06] MEDS: Budesonide Respules 0.5 MG/2 ML AMPUL.NEB. INHALATION ×2 (06:56→19:16)
--- NOTE | 2022-09-06 07:18 | PN.CC_ITS ---
Assessment & Plan Assessment/Plan (1) Respiratory failure: QUALIFIERS: Chronicity: acute Respiratory failure complication: hypoxia Qualified Code(s): J96.01 - Acute respiratory failure with hypoxia (2) Pneumonia: PLAN: Plan RECOMMENDATIONS: 1. Attempt trach mask trial during the day. Continue vent nocturnally 2. Continue aggressive bronchopulmonary hygiene and suctioning as needed. 3. Monitor off antibiotics 4. Continue phenobarb taper. Continue as needed Ativan. 5. Continue tube feeds as tolerated. 6. Continue appropriate ICU prophylaxis. IMPRESSIONS: 1. Acute hypoxemic respiratory failure secondary to MSSA pneumonia Clinical concern for bilateral multifocal MSSA pneumonia as precipitating etiology for acute presentation, with associated mucous plugging. Secretions appear to be improving. Plan to continue aggressive bronchopulmonary hygiene. Patient has completed a course of antimicrobials. Will attempt trach collar this morning, but continue nocturnal ventilation. We will continue to attempt to address alcohol dependency to see if cough can improve 2. History of alcohol dependency/toxic-metabolic encephalopathy The patient is apparently receiving vodka 3 times daily at his nursing facility. Recommend monitoring for any signs of alcohol withdrawal. Patient has loaded on thiamine and folate. Will continue phenobarbital taper for more basal control to see if mentation can be stabilized. 3. History of atrial fibrillation/coronary artery disease/questionable COPD/hypertension/hyperlipidemia/AAA/history of laryngeal CA Complicates care, management, recovery and prognosis. Continue home medications as indicated. PT/OT to work with the patient. Speech therapy following regarding dietary advancement. In the interim, okay to continue tube feeds through NG. TIME: 31 minutes of critical care time, independent of procedures, was spent addressing the patient's acute hypoxemic respiratory failure secondary to multifocal pneumonia, review of all data and collaboration with the care team. Subjective Subjective Patient did okay overnight. Patient has had less agitation on the ph enobarbital. Nursing has reported patient tolerating spontaneous breathing trial this morning. Patient does have a cough, but it is unclear how much secretions he is able to expectorate. Patient is reporting some mild pain at the trach site. Patient denies any chest pain or palpitations. Objective Data Objective Data Vital Signs: Vital Signs Temp Pulse Resp BP Pulse Ox O2 Del Method O2 Flow Rate 36.3 C L 57 L 26 H 144/55 H 95 Mechanical Ventilator 2 09/06/22 02:00 09/06/22 06:57 09/06/22 06:57 09/06/22 06:00 09/06/22 06:57 09/06/22 06:00 09/05/22 17:00 FiO2 30 09/06/22 06:00 Oxygen Flow Rate (L/min) 2 Oxygen Delivery Method Mechanical Ventilator Weight: 97.4 kg Body Mass Index (BMI) 29.0 Intake & Output: Intake and Output for Last 24 Hours 09/04/22 09/05/22 09/06/22 23:59 23:59 23:59 Intake Total 3138.08 / 3138.08 4095.08 / 4195.08 964 / 964 Output Total 1525 / 1825 2350 / 2400 400 / 400 Balance 1613.08 / 1313.08 1745.08 / 1795.08 564 / 564 Lab / Micro Data Attestation: I reviewed the patient's lab results. Result Diagrams: 09/06/22 03:06 09/06/22 03:06 Labs: Laboratory Results - last 24 hr 09/05/22 06:50: Phosphorus 2.0 L, Magnesium 1.9 09/05/22 06:50: WBC 7.4, RBC 2.49 L, Hgb 7.9 L, Hct 24.2 L, MCV 97.2 H, MCH 31.7, MCHC 32.6, RDW Std Deviation 50.0 H, RDW Coeff of [place] 14.0, Plt Count 184, MPV 11.0, Immature Gran % (Auto) 1.000 H, Neut % (Auto) 76.4 H, Lymph % (Auto) 5.6 L, [place] % (Auto) 14.0 H, Eos % (Auto) 2.7, Baso % (Auto) 0.3, Absolute Neuts (auto) 5.6, Absolute Lymphs (auto) 0.41 L, Nucleated RBC % 0 09/05/22 06:50: Sodium 137, Potassium 3.3 L, Chloride 108 H, Carbon Dioxide 25.0, Anion Gap 4 L, BUN 42 H, Creatinine 1.23, Estim Creat Clear Calc 49.07, Est GFR (MDRD) Af Amer 72, Est GFR (MDRD) Non-Af 60, BUN/Creatinine Ratio 34.1 H , Glucose 131 H, Calcium 7.9 L, Total Bilirubin 0.60, AST 94 H, ALT 15 L, Alkaline Phosphatase 397 H, Total Protein 5.6 L, Albumin 1.5 L, Globulin 4.1, Albumin/Globulin Ratio 0.4 L 09/06/22 03:06: WBC 8.5, RBC 2.55 L, Hgb 8.1 L, Hct 24.9 L, MCV 97.6 H, MCH 31.8, MCHC 32.5, RDW Std Deviation 50.9 H, RDW Coeff of [place] 14.1, Plt Count 184, MPV 11.1, Immature Gran % (Auto) 0.700, Neut % (Auto) 77.0 H, Lymph % (Auto) 7.6 L, [place] % (Auto) 11.9 H, Eos % (Auto) 2.6, Baso % (Auto) 0.2, Absolute Neuts (auto) 6.5, Absolute Lymphs (auto) 0.64 L, Nucleated RBC % 0 09/06/22 03:06: Sodium 138, Potassium 3.7, Chloride 108 H, Carbon Dioxide 25.0, Anion Gap 5, BUN 44 H, Creatinine 1.16, Estim Creat Clear Calc 52.03, Est GFR (MDRD) Af Amer 77, Est GFR (MDRD) Non-Af 64, BUN/Creatinine Ratio 37.9 H, Glucose 114 H, Calcium 7.9 L, Phosphorus 2.7, Total Bilirubin 0.50, AST 77 H, ALT 12 L, Alkaline Phosphatase 386 H, Total Protein 5.8 L, Albumin 1.5 L, Globulin 4.3 H, Albumin/Globulin Ratio 0.3 L Micro: Microbiology 08/30/22 23:41 Sputum, Induced/Lukens Gram Stain - Final 08/30/22 23:41 Sputum, Induced/Lukens Respiratory Culture - Final Staphylococcus aureus 08/30/22 23:41 Mucosa - Nasopharyngeal Respiratory Panel (PCR) - Final 08/30/22 23:35 Urine Catheter - Catheter Legionella Antigen - Final 08/30/22 23:35 Urine Catheter - Catheter Streptococcus pneumoniae Antigen (M - Final Physical Exam Const alert and no apparent distress Constitutional Narrative: Resting comfortably on pressure support. HEENT normocephalic and head/scalp atraumatic HEENT Narrative: Edentulous Eyes PERRL and EOMs intact bilaterally Neck supple Neck Narrative: Stable appearing tracheostomy site. Chest inspection of chest normal Resp normal respiratory effort Auscultation: diminished lung sounds; Negative for rales, rhonchi or wheezes Cardio S1 normal heart sound and S2 normal heart sound Rhythm: abnormal rhythm GI normal to inspection, nondistended, normoactive bowel sounds Extremity General Extremity: edema bilateral upper extremity and lower extremity; Negative for clubbing Skin no rashes or lesions noted Neuro Neuro Narrative: Arouses and follows simple commands. Psych Mood & Affect: flat affect Charges/Coding Procedures Hospitalists Procedures: 21055 Critial Care 1st Hr
[2022-09-06] MEDS: Vital AF 1.2 Cal Liquid 1,000 ML 70 ML GT (07:49)
[2022-09-06] MEDS: Chlorhexidine 15 ML PO ×2 (07:52→21:50)
[2022-09-06] MEDS: NYSTATIN 500,000 UNIT/5 ML UDC 500000 UNIT PO ×4 (08:02→21:42)
[2022-09-06] MEDS: amLODIPine 10 MG Tablet PO (08:02)
[2022-09-06] MEDS: Losartan Potassium 50 MG Tablet PO ×2 (08:02→21:42)
[2022-09-06] MEDS: Allopurinol 100 MG Tablet PO (08:02)
[2022-09-06] MEDS: Furosemide 40 MG Tablet PO (08:02)
[2022-09-06] MEDS: buPROPion 75 MG Tablet PO ×2 (08:03→21:43)
[2022-09-06] MEDS: Nystatin Powder 15gm Bottle 1 APPLIC TOPICAL ×2 (08:04→21:44)
[2022-09-06] MEDS: CHLORHEXIDINE GLUC 2% CLOTH 1 EACH TOWELETTE TOPICAL (10:29)
--- NOTE | 2022-09-06 11:21 | PN.HOSP_ITS ---
Reason for Visit Reason for Visit: Shortness of breath/hypoxia Subjective Subjective No significant issues overnight. Patient was able to be taken off the venti lator this morning. Currently having comfortable bleeding however reports shortness of breath after I ask him he shakes his head. Unable to vocalize secondary to tracheostomy placement. Current plan is for slow weaning off of the ventilator and I do suspect patient will need LTAC with intermittent mechanical ventilation at the time of discharge. I did discuss this with case management. Objective Data Objective Data Vital Signs: Vital Signs Temp Pulse Resp BP Pulse Ox O2 Del Method O2 Flow Rate 97.2 F L 57 L 16 136/69 H 95 Trach Collar 2 09/06/22 10:00 09/06/22 10:00 09/06/22 10:00 09/06/22 10:00 09/06/22 10:00 09/06/22 10:00 09/05/22 17:00 FiO2 30 09/06/22 10:00 Oxygen Flow Rate (L/min) 2 Oxygen Delivery Method Trach Collar Weight: 97.4 kg Body Mass Index (BMI) 29.0 Intake & Output: Intake and Output for Last 24 Hours 09/04/22 09/05/22 09/06/22 23:59 23:59 23:59 Intake Total 3138.08 / 3138.08 5095.08 / 5195.08 1074 / 1074 Output Total 1525 / 1825 2350 / 2400 1100 / 1100 Balance 1613.08 / 1313.08 2745.08 / 2795.08 -26 / -26 Lab / Micro Data Result Diagrams: 09/06/22 03:06 09/06/22 03:06 Labs: Laboratory Results - last 24 hr 09/06/22 03:06: WBC 8.5, RBC 2.55 L, Hgb 8.1 L, Hct 24.9 L, MCV 97.6 H, MCH 31.8, MCHC 32.5, RDW Std Deviation 50.9 H, RDW Coeff of [place] 14.1, Plt Count 184, MPV 11.1, Immature Gran % (Auto) 0.700, Neut % (Auto) 77.0 H, Lymph % (Auto) 7.6 L, [place] % (Auto) 11.9 H, Eos % (Auto) 2.6, Baso % (Auto) 0.2, Absolute Neuts ( auto) 6.5, Absolute Lymphs (auto) 0.64 L, Nucleated RBC % 0 09/06/22 03:06: Sodium 138, Potassium 3.7, Chloride 108 H, Carbon Dioxide 25.0, Anion Gap 5, BUN 44 H, Creatinine 1.16, Estim Creat Clear Calc 52.03, Est GFR (MDRD) Af Amer 77, Est GFR (MDRD) Non-Af 64, BUN/Creatinine Ratio 37.9 H, Glucose 114 H, Calcium 7.9 L, Phosphorus 2.7, Total Bilirubin 0.50, AST 77 H, ALT 12 L, Alkaline Phosphatase 386 H, Total Protein 5.8 L, Albumin 1.5 L, Globulin 4.3 H, Albumin/Globulin Ratio 0.3 L Micro: Microbiology 08/30/22 23:41 Sputum, Induced/Lukens Gram Stain - Final 08/30/22 23:41 Sputum, Induced/Lukens Respiratory Culture - Final Staphylococcus aureus 08/30/22 23:41 Mucosa - Nasopharyngeal Respiratory Panel (PCR) - Final 08/30/22 23:35 Urine Catheter - Catheter Legionella Antigen - Final 08/30/22 23:35 Urine Catheter - Catheter Streptococcus pneumoniae Antigen (M - Final Physical Exam Narrative Physical Examination: General: Sedated, trach in place, not alert, not oriented but is mildly responsive as per below been decreased, laying in the ICU bed, no obvious distress, heart rate in the 40s, stable BP. Skin: Normal color, normal turgor, no icterus, no cyanosis except occasional staged ecchymoses, mild stasis changes to bilateral epstein, small left lateral ankle abrasion as well as right plantar foot callused quarter sized region with no drainage or erythema. HEENT: AT/NC, EOM unable to be assessed given sedated intubated status, MMM, notable significant increased oral secretions, trach in place in the stoma, no carotid bruits or JVD noted but difficult assessment. Lungs: CTA bilaterally, moderate effort, mild decrease BL bases, no rales, ronchi or wheezing. Heart: Irregular rhythm, bradycardic; no gallop, rub audible. Abdomen: Soft, overweight, no obvious grimacing with abdominal palpation, no obvious distention, hyperactive bowel sounds, no obvious HSM. Extremities: No cyanosis, no clubbing, see skin, bilateral pedal pitting edema but nothing more proximal. Neurological: Sedated, trach in place, not alert, not oriented but is mildly responsive as per below been decreased, laying in the ICU bed, no obvious distress, cognitive function not baseline intact; pupils equally reactive to light and accommodation, cranial nerves unable to be assessed well given intubated and sedated status, strength accordingly severely globally decreased. Psychiatric: Affect appears normal, no acute evidence of depressive or anxiety feelings. Const alert and no apparent distress Constitutional Narrative: Chronically ill-appearing, elderly, white male lying in bed, appears comfortable at this time, banging on the side of his bed indicating he would like repositioned and indicates via hand gestures that he would like his television turned on. Follows all commands without difficulty HEENT head/scalp atraumatic and moist oral mucous membranes Neck Neck Narrative: Shiley [address] and patient on ventilator with trachea midline Resp normal respiratory effort, no retractions, no use of accessory muscles and clear to auscultation bilaterally Resp Narrative: Diminished but clear at this time, slight tachypnea Auscultation: Negative for rales, rhonchi or wheezes Cardio regular rate, regular rhythm, S1 normal heart sound, S2 normal heart sound, no murmurs, no rub, no gallops and no clicks Cardio Narrative: Mild bradycardia cardia GI normal to inspection, nondistended, normoactive bowel sounds, soft to palpation, non-tender and non-distended Extremity normal to inspection and no clubbing, cyanosis or edema Extremity Narrative: 2+ pedal pulses Neuro moves all extremities and no focal motor deficits Neuro Narrative: Follows commands well, moves all extremities without focal deficit Psych Psych Narrative: Appears calm at this time Assessment & Plan Assessment/Plan (1) Hemoptysis: (2) Pneumonia: (3) Acute respiratory failure with hypoxia: (4) Toxic metabolic encephalopathy: (5) Leukocytosis: (6) Hypokalemia: PLAN: Plan Acute hypoxic respiratory failure secondary to MSSA pneumonia -Patient required tracheostomy tube placement and his old tracheostomy site at outside facility and was placed on a ventilator prior to admission -Was weaned from mechanical ventilation on 09/01/2022 but required placement back on mechanical ventilator on 09/02/2022 -Currently requiring 30% FiO2 on spontaneous mode of mechanical ventilation -Continue to wean as able -Pneumo and Legionella antigens are negative -Respiratory panel was negative -Continue antibiotics through today it appears the stop date for antibiotic should be tomorrow -Continue budesonide -Add scheduled Robitussin to thin secretions -Add vest therapy to help with mucous plugging -Continue diuresis as ordered -Continue tube feed as ordered -Leukocytosis is improving but pending this a.m. -Appreciate pulmonary/critical care input MSSA pneumonia -Appears to be on day 7 of 7 for antibiotics -Should be able to discontinue antibiotics tomorrow Hemoptysis -Subcu Lovenox was discontinued due to this -It appears that it was thought that this was related to his pneumonia -Hemoglobin down a bit today we will continue to hold Lovenox -Hemoglobin is down slightly from his previous hospitalization however stable during this hospitalization thus far Chronic macrocytic anemia -Hemoglobin is down a bit today--> no current signs of obvious bleeding but patient did have some hemoptysis -Continue to monitor and repeat CBC in a.m. Leukocytosis -Related to the above -Has now normalized Toxic/metabolic encephalopathy -Overall improved per report -Suspected to be multifactorial -Continue to monitor clinically CKD stage IIIa -Baseline serum creatinine appears to fluctuate between 1.15 and 1.4 -Current serum creatinine is pending however previous serum creatinine has appeared to be stable in the 1.4-1.5 range -Continue to monitor -Avoid nephrotoxins as able -Adjust medications as needed Hypophosphatemia -Phos level down to 2.0 today -Phosphorus replacement IV and repeat Phos level in a.m. History of gout -Recent admission for this -Continue home allopurinol History of alcohol abuse -Patient reported not drinking at previous admission for gout -Per discussion outside facility emergency department it was reported he was drinking vodka 3 drinks daily -As needed Ativan has been ordered -It appears that lean leader has started phenobarbital this morning -Continue to monitor Chronic atrial fibrillation -Coreg is on hold secondary to patient having some bradycardia--> reinitiate as able -Patient is not on chronic anticoagulation Nonobstructive CAD -Continue aspirin -Continue statin -Hold home Coreg with bradycardia -Continue losartan -Continue home hydralazine -Continue home Lasix BPH -Continue Flomax as able Chronic HFpEF -Continue home diuretics -Last echocardiogram from 12/06/2019 showed EF of 65% -Coreg is on hold for some bradycardia -Continue home losartan -Continue home hydralazine HTN/HPL -Coreg is currently on hold secondary bradycardia -Continue all other medication for blood pressure -Continue statin History of stroke -Continue home aspirin History of AAA -Status post repair in 2004 -Imaging shows irregularity at the peripheral surface of the aorta concerning for 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
--- NOTE | 2022-09-06 11:21 | PCM.PN.HOSP ---
Reason for Visit Reason for Visit: Shortness of breath/hypoxia Subjective Subjective No significant issues overnight. Patient was able to be taken off the ventilator this morning. Currently having comfortable bleeding however reports shortness of breath after I ask him he shakes his head. Unable to vocalize secondary to tracheostomy placement. Current plan is for slow weaning off of the ventilator and I do suspect patient will need LTAC with intermittent mechanical ventilation at the time of discharge. I did discuss this with case management. Objective Data Objective Data Vital Signs: Vital Signs Temp Pulse Resp BP Pulse Ox O2 Del Method O2 Flow Rate 97.2 F L 57 L 16 136/69 H 95 Trach Collar 2 09/06/22 10:00 09/06/22 10:00 09/06/22 10:00 09/06/22 10:00 09/06/22 10:00 09/06/22 10:00 09/05/22 17:00 FiO2 30 09/06/22 10:00 Oxygen Flow Rate (L/min) 2 Oxygen Delivery Method Trach Collar Weight: 97.4 kg Body Mass Index (BMI) 29.0 Intake & Output: Intake and Output for Last 24 Hours 09/04/22 09/05/22 09/06/22 23:59 23:59 23:59 Intake Total 3138.08 / 3138.08 5095.08 / 5195.08 1074 / 1074 Output Total 1525 / 1825 2350 / 2400 1100 / 1100 Balance 1613.08 / 1313.08 2745.08 / 2795.08 -26 / -26 Lab / Micro Data Result Diagrams: 09/06/22 03:06 09/06/22 03:06 Labs: Laboratory Results - last 24 hr 09/06/22 03:06: WBC 8.5, RBC 2.55 L, Hgb 8.1 L, Hct 24.9 L, MCV 97.6 H, MCH 31.8, MCHC 32.5, RDW Std Deviation 50.9 H, RDW Coeff of [place] 14.1, Plt Count 184, MPV 11.1, Immature Gran % (Auto) 0.700, Neut % (Auto) 77.0 H, Lymph % (Auto) 7.6 L, [place] % (Auto) 11.9 H, Eos % (Auto) 2.6, Baso % (Auto) 0.2, Absolute Neuts (auto) 6.5, Absolute Lymphs (auto) 0.64 L, Nucleated RBC % 0 09/06/22 03:06: Sodium 138, Potassium 3.7, Chloride 108 H, Carbon Dioxide 25.0, Anion Gap 5, BUN 44 H, Creatinine 1.16, Estim Creat Clear Calc 52.03, Est GFR (MDRD) Af Amer 77, Est GFR (MDRD) Non-Af 64, BUN/Creatinine Ratio 37.9 H, Glucose 114 H, Calcium 7.9 L, Phosphorus 2.7, Total Bilirubin 0.50, AST 77 H, ALT 12 L, Alkaline Phosphatase 386 H, Total Protein 5.8 L, Albumin 1.5 L, Globulin 4.3 H, Albumin/Globulin Ratio 0.3 L Micro: Microbiology 08/30/22 23:41 Sputum, Induced/Lukens Gram Stain - Final 08/30/22 23:41 Sputum, Induced/Lukens Respiratory Culture - Final Staphylococcus aureus 08/30/22 23:41 Mucosa - Nasopharyngeal Respiratory Panel (PCR) - Final 08/30/22 23:35 Urine Catheter - Catheter Legionella Antigen - Final 08/30/22 23:35 Urine Catheter - Catheter Streptococcus pneumoniae Antigen (M - Final Physical Exam Const alert and no apparent distress Constitutional Narrative: Chronically ill-appearing, elderly, white male lying in bed, appears comfortable at this time, currently on trach mask, Follows all commands without difficulty, no issues HEENT head/scalp atraumatic and moist oral mucous membranes HEENT Narrative: Thrush is present Neck Neck Narrative: Shiley [address] patient now on trach mask Resp normal respiratory effort, no retractions, no use of accessory muscles and clear to auscultation bilaterally Resp Narrative: Diminished but clear at this time Auscultation: Negative for rales, rhonchi or wheezes Cardio regular rate, regular rhythm, S1 normal heart sound, S2 normal heart sound, no murmurs, no rub, no gallops and no clicks Cardio Narrative: Mild bradycardia GI normal to inspection, nondistended, normoactive bowel sounds, soft to palpation and non-tender Extremity no clubbing, cyanosis or edema Extremity Narrative: 2+ pedal pulses, decreased lean muscle mass Neuro moves all extremities and no focal motor deficits Neuro Narrative: Follows commands well, moves all extremities without focal deficit Psych Psych Narrative: Remains calm Assessment & Plan Assessment/Plan (1) Hemoptysis: (2) Pneumonia: (3) Acute respiratory failure with hypoxia: (4) Toxic metabolic encephalopathy: (5) Leukocytosis: (6) Hypokalemia: (7) Thrush: PLAN: Plan Acute hypoxic respiratory failure secondary to MSSA pneumonia -Patient required tracheostomy tube placement and his old tracheostomy site at outside facility and was placed on a ventilator prior to admission -Was weaned from mechanical ventilation on 09/01/2022 but required placement back on mechanical ventilator on 09/02/2022 -Currently requiring 30% FiO2 on trach mask -We will plan for intermittent mechanical ventilation as needed and nocturnal ventilation per discussion with pulmonary medicine -Anticipate patient will need LTAC at discharge -Continue to wean as able -Pneumo and Legionella antigens are negative -Respiratory panel was negative -Patient completed full 7-day course of antibiotics on 09/05/2022 -Continue budesonide -Continue scheduled Robitussin to thin secretions -Continue vest therapy to help with mucous plugging -Continue diuresis as ordered -Continue tube feed as ordered -Leukocytosis has resolved -Appreciate pulmonary/critical care input MSSA pneumonia -Antibiotic course completed on 09/05/2022 Hemoptysis -Subcu Lovenox was discontinued due to this -It appears that it was thought that this was related to his pneumonia -Hemoglobin is stabilized -Hemoglobin is down slightly from his previous hospitalization however stable during this hospitalization thus far -We will restart subcu Lovenox and monitor closely Oral thrush -Nystatin swish and spit Chronic macrocytic anemia -Hemoglobin is overall relatively stable -Continue to monitor and repeat CBC in a.m. Leukocytosis -Resolved Toxic/metabolic encephalopathy -Overall improved per report -Suspected to be multifactorial -Continue to monitor clinically CKD stage IIIa -Baseline serum creatinine appears to fluctuate between 1.15 and 1.4 -Current serum creatinine is 1.16 -Continue to monitor -Avoid nephrotoxins as able -Adjust medications as needed Hypophosphatemia -Resolved History of gout -Recent admission for this -Continue home allopurinol History of alcohol abuse -Patient reported not drinking at previous admission for gout -Per discussion outside facility emergency department it was reported he was drinking vodka 3 drinks daily -As needed Ativan has been ordered -It appears that pastoral counselor has started phenobarbital this morning -Taper as ordered -Continue to monitor Chronic atrial fibrillation -Coreg is on hold secondary to patient having some bradycardia--> reinitiate as able -Patient is still having intermittent bradycardia so Coreg is still on hold -Patient is not on chronic anticoagulation Nonobstructive CAD -Continue aspirin -Continue statin -Hold home Coreg with bradycardia -Continue losartan -Continue home hydralazine -Continue home Lasix BPH -Continue Flomax as able Chronic HFpEF -Continue home diuretics -Last echocardiogram from 12/06/2019 showed EF of 65% -Coreg is on hold for some bradycardia -Continue home losartan -Continue home hydralazine HTN/HPL -Coreg is currently on hold secondary bradycardia -Continue all other medication for blood pressure -Continue statin History of stroke -Continue home aspirin History of AAA -Status post repair in 2004 -Imaging shows irregularity at the peripheral surface of the aorta concerning for 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
--- NOTE | 2022-09-06 11:28 | CASEMGMT ---
Social Work SW participated in ICU rounds this A.M. MD Caldwell informed may not be able to remove trach collar from pt and asked SW to check with [facility] on if their facility would still be able to take pt back if this is the case. SW called [facility], left message on admissions VM with short description of inquiry regarding if the facility could accommodate pt with trach and need for vent at night. SW left contact information and will wait for call back from [facility]. SHAHEEN Romano
[2022-09-06] MEDS: Juven (unflavored) Packet 1 PACKET NG (16:57)
[2022-09-06] MEDS: Enoxaparin 40 MG/0.4 ML Syringe SC (19:22)
[2022-09-06] MEDS: Atorvastatin Calcium 80 MG Tablet PO (21:42)
[2022-09-06] MEDS: Jevity 1.5 1,000 ML 25 ML GT (23:26)
[2022-09-07] VITALS (40 sets, daily range): BP systolic 131–161; BP diastolic 57–103; PULSE 48–78; RESP 14–25; TEMP 35.9–37.2; O2SAT 86–100; BMI 28.3
[2022-09-07] MEDS: Phenobarbital 32.4 MG Tablet GT ×5 (03:37→20:57)
[2022-09-07 04:00] LABS: Absolute Lymphocyte Count 0.66 X10^3/uL (0.83-4.51); Absolute Neutrophil Count 9.4 X10^3/uL (2.0-7.7); Basophil# 0.03 X10^3/uL; Basophil% 0.3 % (0-1); Eosinophil# 0.17 X10^3/uL; Eosinophils% 1.5 % (0-5); Hematocrit 26.8 % (40-54); Hemoglobin 8.7 g/dL (13.0-16.5); Lymphocyte # 0.66 X10^3/ul (0.83-4.51); Lymphocyte % 5.7 % (19-41); Mean Corp Hgb Conc 32.5 g/dL (32-36); Mean Corpuscular Hgb 31.6 pg (27.0-32.0); Mean Corpuscular Volume 97.5 fL (80-94); Monocyte# 1.19 X10^3/uL; Monocyte% 10.3 % (0-10); NRBC Flagged by Analyzer 0 % (0-5); Neutrophil # 9.37 X10^3/uL (2.7-7.7); Neutrophil % 81.5 % (47-70); Platelet Count 201 K/mm3 (150-450); RBC Distribution Width CV 14.1 % (11.6-14.6); RBC Distribution Width SD 50.3 fl (35.1-43.9); Red Blood Count 2.75 M/mm3 (4.6-6.2); White Blood Count 11.5 K/mm3 (4.4-11.0)
[2022-09-07 04:20] LABS: ALB/GLOB Ratio 0.3 RATIO (0.9-2.4); AST(SGOT) 54 U/L (15-37); Alanine Aminotransfer ALT/SGPT 9 U/L (16-61); Albumin, Serum 1.5 g/dL (3.2-5.0); Alkaline Phosphatase 376 U/L (45-117); Anion Gap 3 (5-15); BUN 37 mg/dL (7-18); BUN/Creat Ratio 40.2 RATIO (10-20); Calcium,Total 8.1 mg/dL (8.5-10.1); Chloride 107 mmol/L (98-107); Creatinine, Serum 0.92 mg/dL (0.70-1.30); EST Glomerular Filtration Rate 83 mL/min (>60); Est Glom Filt Rate - Afr Amer 101 mL/min (>60); Globulin 4.4 g/dL (2.2-4.2); Glucose 118 mg/dL (74-106); Potassium 3.7 mmol/L (3.5-5.1); Protein, Total 5.9 g/dL (6.4-8.2); Sodium Level 137 mmol/L (136-145)
[2022-09-07] MEDS: guaiFENesin 10 ML UDC (200MG/10ML) NG ×3 (05:26→17:43)
--- NOTE | 2022-09-07 07:16 | PCM.PN.INT ---
Assessment & Plan Assessment/Plan (1) Respiratory failure: QUALIFIERS: Chronicity: acute Respiratory failure complication: hypoxia Qualified Code(s): J96.01 - Acute respiratory failure with hypoxia (2) Pneumonia: PLAN: Plan RECOMMENDATIONS: 1. Attempt trach mask trial continuously for 24 hours. ABG in the a.m. 2. Discontinue vest therapy 3. Okay to resume anticoagulation 4. Continue phenobarb taper. Continue as needed Ativan. 5. Continue tube feeds as tolerated. 6. Continue appropriate ICU prophylaxis. IMPRESSIONS: 1. Acute hypoxemic respiratory failure secondary to MSSA pneumonia Clinical concern for bilateral multifocal MSSA pneumonia as precipitating etiology for acute presentation, with associated mucous plugging. Secretions appear to be improving. Plan to continue aggressive bronchopulmonary hygiene. Patient has completed a course of antimicrobials. Patient able to tolerate trach collar during the day yesterday. Will attempt 24 hours continuously today. Obtain ABG in the morning to ensure adequate ventilation. Anticipate trach staying in place for at least a month or 2 to help with pulmonary toileting and avoidance of complications 2. History of alcohol dependency/toxic-metabolic encephalopathy The patient is apparently receiving vodka 3 times daily at his nursing facility. Recommend monitoring for any signs of alcohol withdrawal. Patient has loaded on thiamine and folate. Will continue phenobarbital taper for more basal control to see if mentation can be stabilized. Patient still with significant dysphagia. We will have to address nutritional status before patient can be transferred back to [facility]. 3. History of atrial fibrillation/coronary artery disease/questionable COPD/hypertension/hyperlipidemia/AAA/history of laryngeal CA Complicates care, management, recovery and prognosis. Continue home medications as indicated. PT/OT to work with the patient. Speech therapy following regarding dietary advancement. In the interim, okay to continue tube feeds through NG. We will need to decide about a modified diet versus PEG tube before discharge. Subjective Subjective Patient was able to tolerate trach collar through the day yesterday. Patient was placed on mechanical ventilation. Patient still reporting some throat discomfort and is asking for water. Objective Data Objective Data Vital Signs: Vital Signs Temp Pulse Resp BP Pulse Ox O2 Del Method O2 Flow Rate 36.9 C 52 L 22 H 159/62 H 95 Mechanical Ventilator 10 09/07/22 05:43 09/07/22 07:00 09/07/22 07:00 09/07/22 07:00 09/07/22 07:00 09/07/22 07:00 09/07/22 05:20 FiO2 35 09/07/22 05:20 Oxygen Flow Rate (L/min) 10 Oxygen Delivery Method Mechanical Ventilator Weight: 94.9 kg Body Mass Index (BMI) 28.3 Intake & Output: Intake and Output for Last 24 Hours 09/05/22 09/06/22 09/07/22 23:59 23:59 23:59 Intake Total 5095.08 / 5195.08 2866 / 2866 280 / 280 Output Total 2350 / 2400 3650 / 3650 400 / 400 Balance 2745.08 / 2795.08 -784 / -784 -120 / -120 Lab / Micro Data Attestation: I reviewed the patient's lab results. Result Diagrams: 09/07/22 03:45 09/07/22 03:45 Labs: Laboratory Results - last 24 hr 09/07/22 03:45: WBC 11.5 H, RBC 2.75 L, Hgb 8.7 L, Hct 26.8 L, MCV 97.5 H, MCH 31.6, MCHC 32.5, RDW Std Deviation 50.3 H, RDW Coeff of [place] 14.1, Plt Count 201, MPV 11.0, Immature Gran % (Auto) 0.700, Neut % (Auto) 81.5 H, Lymph % (Auto) 5.7 L, [place] % (Auto) 10.3 H, Eos % (Auto) 1.5, Baso % (Auto) 0.3, Absolute Neuts (auto) 9.4 H, Absolute Lymphs (auto) 0.66 L, Nucleated RBC % 0 09/07/22 03:45: Sodium 137, Potassium 3.7, Chloride 107, Carbon Dioxide 27.0, Anion Gap 3 L, BUN 37 H, Creatinine 0.92, Estim Creat Clear Calc 65.60, Est GFR (MDRD) Af Amer 101, Est GFR (MDRD) Non-Af 83, BUN/Creatinine Ratio 40.2 H, Glucose 118 H, Calcium 8.1 L, Total Bilirubin 0.50, AST 54 H, ALT 9 L, Alkaline Phosphatase 376 H, Total Protein 5.9 L, Albumin 1.5 L, Globulin 4.4 H, Albumin/Globulin Ratio 0.3 L Micro: Microbiology 08/30/22 23:41 Sputum, Induced/Lukens Gram Stain - Final 08/30/22 23:41 Sputum, Induced/Lukens Respiratory Culture - Final Staphylococcus aureus 08/30/22 23:41 Mucosa - Nasopharyngeal Respiratory Panel (PCR) - Final 08/30/22 23:35 Urine Catheter - Catheter Legionella Antigen - Final 08/30/22 23:35 Urine Catheter - Catheter Streptococcus pneumoniae Antigen (M - Final Physical Exam Const alert and no apparent distress Constitutional Narrative: Resting comfortably on trach mask HEENT normocephalic and head/scalp atraumatic HEENT Narrative: Edentulous Eyes PERRL and EOMs intact bilaterally Neck supple Neck Narrative: Stable appearing tracheostomy site. Chest inspection of chest normal Resp normal respiratory effort Auscultation: diminished lung sounds; Negative for rales, rhonchi or wheezes Cardio S1 normal heart sound and S2 normal heart sound Rhythm: abnormal rhythm GI normal to inspection, nondistended, normoactive bowel sounds Extremity General Extremity: edema bilateral upper extremity and lower extremity; Negative for clubbing Skin no rashes or lesions noted Neuro Neuro Narrative: Arouses and follows simple commands. Psych Mood & Affect: flat affect Charges/Coding Visit Charges Inpatient E&M: 73898 Subs Hosp L3
[2022-09-07] MEDS: Budesonide Respules 0.5 MG/2 ML AMPUL.NEB. INHALATION ×2 (07:31→19:57)
[2022-09-07] MEDS: Juven (unflavored) Packet 1 PACKET NG ×2 (08:35→15:25)
[2022-09-07] MEDS: Allopurinol 100 MG Tablet PO (08:35)
[2022-09-07] MEDS: CHLORHEXIDINE GLUC 2% CLOTH 1 EACH TOWELETTE TOPICAL (08:36)
[2022-09-07] MEDS: Chlorhexidine 15 ML PO ×2 (08:36→20:57)
[2022-09-07] MEDS: buPROPion 75 MG Tablet PO ×2 (08:36→20:59)
[2022-09-07] MEDS: Furosemide 40 MG Tablet PO (08:36)
[2022-09-07] MEDS: NYSTATIN 500,000 UNIT/5 ML UDC 500000 UNIT PO ×4 (08:37→20:57)
[2022-09-07] MEDS: Nystatin Powder 15gm Bottle 1 APPLIC TOPICAL ×2 (08:37→20:55)
[2022-09-07] MEDS: Losartan Potassium 50 MG Tablet PO ×2 (10:32→20:59)
[2022-09-07] MEDS: amLODIPine 10 MG Tablet PO (10:32)
--- NOTE | 2022-09-07 10:43 | CASEMGMT ---
Social Work SW called [facility] to discuss possibility of pt remaining on trach for a longer period of time than expected. NISA spoke to Rebekah in admissions. NISA gave Rebekah verbal update the pt's MD, Dr. Caldwell, feels pt will need to remain on the trach for at least a couple months. Rebekah shared this may not be something the facility feels comfortable accommodating [place] any emergency rooms or hospitals. Rebekah asked NISA to send updates and discussed that there is a possibility of pt going to [facility]'s sister facility as it is closer to medical buildings. Rebekah stated pt's daughter works at [facility] and Rebekah will work with pt's daughter to figure out it pt can return to [facility] or go to the sister facility. NISA discussed intent to send updates to [facility] so their team can review and make a decision. Sent updates to [facility] via [employer]. PLAN: [facility], if able to accept back or possibility of [facility] if pt's daughter is agreeable. SHAHEEN Romano
[2022-09-07] MEDS: hydrALAZINE 25 MG Tablet PO ×2 (13:13→20:58)
[2022-09-07] MEDS: Jevity 1.5 1,000 ML 35 ML GT (15:24)
--- NOTE | 2022-09-07 16:04 | PN.HOSP_ITS ---
Subjective Subjective Doing well, no issues overnight. He did tolerate the trach mask for most the day yesterday but was placed back on the ventilator overnight Objective Data Objective Data Vital Signs: Vital Signs Temp Pulse Resp BP Pulse Ox O2 Del Method O2 Flow Rate 96.9 F L 60 19 H 154/65 H 96 Mechanical Ventilator 12 09/07/22 12:00 09/07/22 15:00 09/07/22 15:00 09/07/22 15:00 09/07/22 15:00 09/07/22 15:00 09/07/22 10:13 FiO2 35 09/07/22 15:00 Oxygen Flow Rate (L/min) 12 Oxygen Delivery Method Mechanical Ventilator Weight: 209 lb 3.499 oz Body Mass Index (BMI) 28.3 Intake & Output: Intake and Output for Last 24 Hours 09/06/22 09/07/22 09/08/22 03:59 03:59 03:59 Intake Total 4652 / 4652 2614 / 2644 1105.83 / 1105.83 Output Total 2100 / 2100 3600 / 3600 1200 / 1200 Balance 2552 / 2552 -986 / -956 -94.17 / -94.17 Lab / Micro Data Result Diagrams: 09/07/22 03:45 09/07/22 03:45 Labs: Laboratory Results - last 24 hr 09/07/22 03:45: WBC 11.5 H, RBC 2.75 L, Hgb 8.7 L, Hct 26.8 L, MCV 97.5 H, MCH 31.6, MCHC 32.5, RDW Std Deviation 50.3 H, RDW Coeff of [place] 14.1, Plt Count 201, MPV 11.0, Immature Gran % (Auto) 0.700, Neut % (Auto) 81.5 H, Lymph % (Auto) 5.7 L, [place] % (Auto) 10.3 H, Eos % (Auto) 1.5, Baso % (Auto) 0.3, Absolute Neuts (auto) 9.4 H, Absolute Lymphs (auto) 0.66 L, Nucleated RBC % 0 09/07/22 03:45: Sodium 137, Potassium 3.7, Chloride 107, Carbon Dioxide 27.0, Anion Gap 3 L, BUN 37 H, Creatinine 0.92, Estim Creat Clear Calc 65.60, Est GFR (MDRD) Af Amer 101, Est GFR (MDRD) Non-Af 83, BUN/Creatinine Ratio 40.2 H, Glucose 118 H, Calcium 8.1 L, Total Bilirubin 0.50, AST 54 H, ALT 9 L, Alkaline Phosphatase 376 H, Total Protein 5.9 L, Albumin 1.5 L, Globulin 4.4 H, Albumin/Globulin Ratio 0.3 L Micro: Microbiology 08/30/22 23:41 Sputum, Induced/Lukens Gram Stain - Final 08/30/22 23:41 Sputum, Induced/Lukens Respiratory Culture - Final Staphylococcus aureus 08/30/22 23:41 Mucosa - Nasopharyngeal Respiratory Panel (PCR) - Final 08/30/22 23:35 Urine Catheter - Catheter Legionella Antigen - Final 08/30/22 23:35 Urine Catheter - Catheter Streptococcus pneumoniae Antigen (M - Final Physical Exam Narrative General: Alert, cooperative, No apparent distress HEENT: Atraumatic, PERRLA, EOMI, Normocephalic, trach Oral: Moist Mucosa Neck: Supple, No JVD Lungs: Diminished, Normal air movement, No rhonchi, No wheeze, No rales Cardiovascular: Regular rate, irregular rhythm, Normal S1, Normal S2, No murmurs Abdomen: Soft, Non Tender, Non-Distended, No Hepato-splenomegaly Extremities: Edema, Capillary Refill Less than 3 Seconds Skin: No rashes, No breakdown Musculoskeletal: No Tenderness to Palpation of Joints or Extremities Neurological: Cranial nerves II-XII grossly intact, Motor Exam 5/5 strength throughout, Sensory exam intact to light touch and pain Psych/Mental Status: Normal Affect, Appropriate Assessment & Plan Assessment/Plan (1) Hemoptysis: (2) Pneumonia: (3) Acute respiratory failure with hypoxia: (4) Toxic metabolic encephalopathy: (5) Leukocytosis: (6) Hypokalemia: (7) Thrush: PLAN: Plan 1. Acute hypoxic respiratory failure secondary to MSSA pneumonia/hemoptysis with oral thrush/toxic versus metabolic encephalopathy/history of laryngeal cancer/COPD ? Had a tracheostomy placed at outside facility, continue with inhalers ? He has been tolerating trach mask during the day, will repeat an ABG in the morning per the body maker machine setter ? He did complete his course of antibiotics ? His vest therapy was discontinued today and he is tolerating tube feeds ? Appreciate pulmonology's assistance, may benefit from LTAC placement ? Because of his hemoptysis anticoagulation was held hemoglobin has stabilized, so his subcu Lovenox was restarted ? Continue with the nystatin swish and spit ? His confusion is improving 2. Chronic A-fib/nonobstructive CAD/chronic diastolic HF/HTN/HLD/history of CVA/history of AAA repaired in 2004 ? He was having some issues with bradycardia so his Coreg was held will restart when able ? He is not on chronic anticoagulation at baseline ? Can resume aspirin on discharge ? Continue with statin, losartan, hydralazine, Lasix ? Last echo on 12/06/2019 demonstrated an EF of 65% 3. CKD 3a ? Creatinine is at baseline ? We will continue to monitor 4. History of gout ? Stable ? Continue with allopurinol 5. History of alcohol abuse ? Continue with phenobarbital taper ? She does drink about 3 vodkas a day per outside hospital 6. BPH ? Stable ? Continue with Flomax DVT: Lovenox Charges/Coding Visit Charges Inpatient E&M: 96606 Subs Hosp L2
[2022-09-07] MEDS: Enoxaparin 40 MG/0.4 ML Syringe SC (20:57)
[2022-09-07] MEDS: Atorvastatin Calcium 80 MG Tablet PO (20:58)
[2022-09-08] VITALS (35 sets, daily range): BP systolic 113–173; BP diastolic 51–83; PULSE 51–84; RESP 12–25; TEMP 36.1–36.9; O2SAT 92–99; BMI 28.7
[2022-09-08] MEDS: guaiFENesin 10 ML UDC (200MG/10ML) NG ×4 (00:37→16:57)
[2022-09-08] MEDS: Phenobarbital 32.4 MG Tablet GT ×4 (03:12→21:18)
[2022-09-08] MEDS: hydrALAZINE 25 MG Tablet PO ×3 (05:29→21:15)
[2022-09-08] MEDS: Budesonide Respules 0.5 MG/2 ML AMPUL.NEB. INHALATION ×2 (06:55→19:46)
[2022-09-08 07:13] LABS: Absolute Lymphocyte Count 0.54 X10^3/uL (0.83-4.51); Basophil# 0.04 X10^3/uL; Basophil% 0.3 % (0-1); Eosinophil# 0.11 X10^3/uL; Eosinophils% 0.8 % (0-5); Hematocrit 25.9 % (40-54); Hemoglobin 8.6 g/dL (13.0-16.5); Lymphocyte # 0.54 X10^3/ul (0.83-4.51); Lymphocyte % 3.8 % (19-41); Mean Corp Hgb Conc 33.2 g/dL (32-36); Mean Corpuscular Hgb 32.1 pg (27.0-32.0); Mean Corpuscular Volume 96.6 fL (80-94); Mean Platelet Vol. 10.8 fl (6.2-12.0); Monocyte# 1.36 X10^3/uL; Monocyte% 9.6 % (0-10); NRBC Flagged by Analyzer 0 % (0-5); Neutrophil # 12.04 X10^3/uL (2.7-7.7); Neutrophil % 84.7 % (47-70); POSITIVE DIFFERENTIAL YES; Platelet Count 226 K/mm3 (150-450); RBC Distribution Width CV 14.1 % (11.6-14.6); RBC Distribution Width SD 49.7 fl (35.1-43.9); Red Blood Count 2.68 M/mm3 (4.6-6.2); White Blood Count 14.2 K/mm3 (4.4-11.0)
[2022-09-08 07:16] LABS: Differential Indicated SCAN CRITERIA MET
[2022-09-08 07:36] LABS: Differential Comment SCANNED
[2022-09-08 07:39] LABS: Anion Gap 2 (5-15); BUN 41 mg/dL (7-18); BUN/Creat Ratio 46.5 RATIO (10-20); Calcium,Total 8.5 mg/dL (8.5-10.1); Chloride 105 mmol/L (98-107); Creatinine, Serum 0.88 mg/dL (0.70-1.30); EST Glomerular Filtration Rate 87 mL/min (>60); Est Glom Filt Rate - Afr Amer 106 mL/min (>60); Estimated Creatinine Clearance 68.59 ml/min; Glucose 108 mg/dL (74-106); Potassium 4.1 mmol/L (3.5-5.1); Sodium Level 134 mmol/L (136-145)
--- NOTE | 2022-09-08 07:40 | PN.CC_ITS ---
Assessment & Plan Assessment/Plan (1) Respiratory failure: QUALIFIERS: Chronicity: acute Respiratory failure complication: hypoxia Qualified Code(s): J96.01 - Acute respiratory failure with hypoxia (2) Pneumonia: PLAN: Plan RECOMMENDATIONS: 1. Attempt trach mask trials. Cultures pending 2. Possibly reinitiate vest therapy for pulmonary toileting 3. Okay to resume anticoagulation 4. Continue phenobarb taper. Continue as needed Ativan. 5. Continue tube feeds as tolerated. 6. Continue appropriate ICU prophylaxis. IMPRESSIONS: 1. Acute hypoxemic respiratory failure secondary to MSSA pneumonia Clinical concern for bilateral multifocal MSSA pneumonia as precipitating etiology for acute presentation, with associated mucous plugging. Secretions appear to be improving. Plan to continue aggressive bronchopulmonary hygiene. Patient has completed a course of antimicrobials. Unfortunately, patient has had increased secretions following his protracted trach collar trial. Unclear if patient has developed a new infection and cultures have been sent. We will attempt trach trials again today 2. History of alcohol dependency/toxic-metabolic encephalopathy The patient is apparently receiving vodka 3 times daily at his nursing facility. Recommend monitoring for any signs of alcohol withdrawal. Patient has loaded on thiamine and folate. Will continue phenobarbital taper for more basal control to see if mentation can be stabilized. Patient still with significant dysphagia. Patient has no history of connection following laryngectomy, so could eat if mentation continues to improve. 3. History of atrial fibrillation/coronary artery disease/questionable COPD/hypertension/hyperlipidemia/AAA/history of laryngeal CA Complicates care, management, recovery and prognosis. Continue home medications as indicated. PT/OT to work with the patient. Speech therapy following regarding dietary advancement. If mentation improves, likely okay for the patient to eat despite mechanical ventilation requirement Subjective Subjective Patient is done okay from a hemodynamic standpoint. Unfortunately, patient with significant secretions required reinitiation of ventilator support after about 4 hours yesterday. Patient is not reporting any pain. Objective Data Objective Data Vital Signs: Vital Signs Temp Pulse Resp BP Pulse Ox O2 Del Method O2 Flow Rate 36.9 C 65 25 H 149/55 H 96 Trach Collar 40 09/08/22 01:58 09/08/22 07:00 09/08/22 07:00 09/08/22 07:00 09/08/22 07:20 09/08/22 07:20 09/08/22 07:20 FiO2 30 09/08/22 07:00 Oxygen Flow Rate (L/min) 40 Oxygen Delivery Method Trach Collar Weight: 96.1 kg Body Mass Index (BMI) 28.7 Intake & Output: Intake and Output for Last 24 Hours 09/06/22 09/07/22 09/08/22 23:59 23:59 23:59 Intake Total 2866 / 2866 1961.25 / 2111.25 580 / 580 Output Total 3650 / 3650 1600 / 2000 800 / 800 Balance -784 / -784 361.25 / 111.25 -220 / -220 Lab / Micro Data Attestation: I reviewed the patient's lab results. Result Diagrams: 09/08/22 07:00 09/08/22 04:05 Labs: Laboratory Results - last 24 hr 09/08/22 04:05: Sodium 134 L, Potassium 4.1, Chloride 105, Carbon Dioxide 27.0, Anion Gap 2 L, BUN 41 H, Creatinine 0.88, Estim Creat Clear Calc 68.59, Est GFR (MDRD) Af Amer 106, Est GFR (MDRD) Non-Af 87, BUN/Creatinine Ratio 46.5 H, Glucose 108 H, Calcium 8.5 09/08/22 06:40: WBC Cancelled, Corrected WBC Cancelled, RBC Cancelled, Hgb Cancelled, Hct Cancelled, MCV Cancelled, MCH Cancelled, MCHC Cancelled, RDW Std Deviation Cancelled, RDW Coeff of [place] Cancelled, Plt Count Cancelled, MPV Cancelled, Immature Gran % (Auto) Cancelled, Neut % (Auto) Cancelled, Lymph % (Auto) Cancelled, [place] % (Auto) Cancelled, Eos % (Auto) Cancelled, Baso % (Auto) Cancelled, Absolute Neuts (auto) Cancelled, Absolute Lymphs (auto) Cancelled, Total Counted Cancelled, Neutrophils % (Manual) Cancelled, Band Neutrophils % Cancelled, Lymphocytes % (Manual) Cancelled, Monocytes % (Manual) Cancelled, E osinophils % (Manual) Cancelled, Basophils % (Manual) Cancelled, Metamyelocytes % Cancelled, Myelocytes % Cancelled, Promyelocytes % Cancelled, Blast Cells % Cancelled, Plasma Cell % (Manual) Cancelled, Other Cells % Cancelled, Nucleated RBC % Cancelled, Nucleated RBCs/100 WBC Cancelled, Differential Comment Cancelled, Diff Path Review Cancelled, Hypersegmented Neuts Cancelled, Atypical Lymphocytes Cancelled, Reactive Lymphocytes Cancelled, Smudge Cells Cancelled, Toxic Granulation Cancelled, Toxic Vacuolation Cancelled, Dohle Bodies Cancelled, Denice Rods Cancelled, Platelet Estimate Cancelled, Plt Morphology Comment Cancelled, RBC Morphology Cancelled, Polychromasia Cancelled, Hypochromasia Cancelled, Poikilocytosis Cancelled, Basophilic Stippling Cancelled, Anisocytosis Cancelled, Microcytosis Cancelled, Macrocytosis Cancelled, Spherocytes Cancelled, Sickle Cells Cancelled, Target Cells Cancelled, Tear Drop Cells Cancelled, Ovalocytes Cancelled, Stomatocytes Cancelled, [place] Bodies Cancelled, Adeel Cells Cancelled, Bite Cells Cancelled, Crenated Cell Cancelled, Acanthocytes (Spur) Cancelled, Rouleaux Cancelled, Schistocytes Cancelled 09/08/22 07:00: WBC 14.2 H, RBC 2.68 L, Hgb 8.6 L, Hct 25.9 L, MCV 96.6 H, MCH 32.1 H, MCHC 33.2, RDW Std Deviation 49.7 H, RDW Coeff of [place] 14.1, Plt Count 226, MPV 10.8, Immature Gran % (Auto) 0.800, Neut % (Auto) 84.7 H, Lymph % (Auto) 3.8 L, [place] % (Auto) 9.6, Eos % (Auto) 0.8, Baso % (Auto) 0.3, Absolute Neuts (auto) 12.0 H, Absolute Lymphs (auto) 0.54 L, Nucleated RBC % 0, Differential Comment SCANNED Micro: Microbiology 08/30/22 23:41 Sputum, Induced/Lukens Gram Stain - Final 08/30/22 23:41 Sputum, Induced/Lukens Respiratory Culture - Final Staphylococcus aureus 08/30/22 23:41 Mucosa - Nasopharyngeal Respiratory Panel (PCR) - Final 08/30/22 23:35 Urine Catheter - Catheter Legionella Antigen - Final 08/30/22 23:35 Urine Catheter - Catheter Streptococcus pneumoniae Antigen (M - Final Physical Exam Const alert and no apparent distress Constitutional Narrative: Resting comfortably on ventilator HEENT normocephalic and head/scalp atraumatic Eyes PERRL and EOMs intact bilaterally Neck supple Neck Narrative: Stable appearing tracheostomy site. Chest inspection of chest normal Resp normal respiratory effort Auscultation: rhonchi and diminished lung sounds; Negative for rales or wheezes Cardio regular rate, S1 normal heart sound, S2 normal heart sound and no murmurs Rhythm: abnormal rhythm GI normal to inspection, nondistended, normoactive bowel sounds Extremity General Extremity: edema bilateral upper extremity and lower extremity; Negative for clubbing Skin no rashes or lesions noted Neuro Neuro Narrative: Arouses and follows simple commands. Sensorium / Orientation: sedated on vent Psych Mood & Affect: flat affect Charges/Coding Visit Charges Inpatient E&M: 64566 [facility] Hosp L3
--- NOTE | 2022-09-08 08:58 | PN.HOSP_ITS ---
Subjective Subjective Doing well no issues overnight. He only tolerated the trach mask until about noon 1:00 yesterday and then was placed back on the ventilator Objective Data Objective Data Vital Signs: Vital Signs Temp Pulse Resp BP Pulse Ox O2 Del Method O2 Flow Rate 98.4 F 63 22 H 156/67 H 97 Trach Collar 40 09/08/22 01:58 09/08/22 08:00 09/08/22 08:00 09/08/22 08:00 09/08/22 08:00 09/08/22 08:00 09/08/22 07:20 FiO2 40 09/08/22 08:00 Oxygen Flow Rate (L/min) 40 Oxygen Delivery Method Trach Collar Weight: 211 lb 13.828 oz Body Mass Index (BMI) 28.7 Intake & Output: Intake and Output for Last 24 Hours 09/07/22 09/08/22 09/09/22 03:59 03:59 03:59 Intake Total 2614 / 2644 2111.25 / 2291.25 330 / 330 Output Total 3600 / 3600 1999 / 1999 400 / 400 Balance -986 / -956 111.25 / 291.25 -70 / -70 Lab / Micro Data Result Diagrams: 09/08/22 07:00 09/08/22 04:05 Labs: Laboratory Results - last 24 hr 09/08/22 04:05: Sodium 134 L, Potassium 4.1, Chloride 105, Carbon Dioxide 27.0, Anion Gap 2 L, BUN 41 H, Creatinine 0.88, Estim Creat Clear Calc 68.59, Est GFR (MDRD) Af Amer 106, Est GFR (MDRD) Non-Af 87, BUN/Creatinine Ratio 46.5 H, Glucose 108 H, Calcium 8.5 09/08/22 06:40: WBC Cancelled, Corrected WBC Cancelled, RBC Cancelled, Hgb Cancelled, Hct Cancelled, MCV Cancelled, MCH Cancelled, MCHC Cancelled, RDW Std Deviation Cancelled, RDW Coeff of [place] Cancelled, Plt Count Cancelled, MPV Cancelled, Immature Gran % (Auto) Cancelled, Neut % (Auto) Cancelled, Lymph % (Auto) Cancelled, [place] % (Auto) Cancelled, Eos % (Auto) Cancelled, Baso % (Auto) Cancelled, Absolute Neuts (auto) Cancelled, Absolute Lymphs (auto) Cancelled, Total Counted Cancelled, Neutrophils % (Manual) Cancelled, Band Neutrophils % Cancelled, Lymphocytes % (Manual) Cancelled, Monocytes % (Manual) Cancelled, Eosinophils % (Manual) Cancelled, Basophils % (Manual) Cancelled, Metamyelocytes % Cancelled, Myelocytes % Cancelled, Promyelocytes % Cancelled, Blast Cells % Cancelled, Plasma Cell % (Manual) Cancelled, Other Cells % Cancelled, Nucleated RBC % Cancelled, Nucleated RBCs/100 WBC Cancelled, Differential Comment Cancelled, Diff Path Review Cancelled, Hypersegmented Neuts Cancelled, Atypical Lymphocytes Cancelled, Reactive Lymphocytes Cancelled, Smudge Cells Cancelled, Toxic Granulation Cancelled, Toxic Vacuolation Cancelled, Dohle Bodies Cancelled, Denice Rods Cancelled, Platelet Estimate Cancelled, Plt Morphology Comment Cancelled, RBC Morphology Cancelled, Polychromasia Cancelled, Hypochromasia Cancelled, Poikilocytosis Cancelled, Basophilic Stippling Cancel led, Anisocytosis Cancelled, Microcytosis Cancelled, Macrocytosis Cancelled, Spherocytes Cancelled, Sickle Cells Cancelled, Target Cells Cancelled, Tear Drop Cells Cancelled, Ovalocytes Cancelled, Stomatocytes Cancelled, Tabor-Convoy Bodies Cancelled, Adeel Cells Cancelled, Bite Cells Cancelled, Crenated Cell Cancelled, Acanthocytes (Spur) Cancelled, Rouleaux Cancelled, Schistocytes Cancelled 09/08/22 07:00: WBC 14.2 H, RBC 2.68 L, Hgb 8.6 L, Hct 25.9 L, MCV 96.6 H, MCH 32.1 H, MCHC 33.2, RDW Std Deviation 49.7 H, RDW Coeff of [place] 14.1, Plt Count 226, MPV 10.8, Immature Gran % (Auto) 0.800, Neut % (Auto) 84.7 H, Lymph % (Auto) 3.8 L, [place] % (Auto) 9.6, Eos % (Auto) 0.8, Baso % (Auto) 0.3, Absolute Neuts (auto) 12.0 H, Absolute Lymphs (auto) 0.54 L, Nucleated RBC % 0, Differential Comment SCANNED Micro: Microbiology 08/30/22 23:41 Sputum, Induced/Lukens Gram Stain - Final 04/18/23 23:41 Sputum, Induced/Lukens Respiratory Culture - Final Staphylococcus aureus 08/30/22 23:41 Mucosa - Nasopharyngeal Respiratory Panel (PCR) - Final 08/30/22 23:35 Urine Catheter - Catheter Legionella Antigen - Final 08/30/22 23:35 Urine Catheter - Catheter Streptococcus pneumoniae Antigen (M - Final Physical Exam Narrative General: Alert, cooperative, No apparent distress HEENT: Atraumatic, PERRLA, EOMI, Normocephalic, trach Oral: Moist Mucosa Neck: Supple, No JVD Lungs: Diminished, Normal air movement, rhonchi, No wheeze, No rales Cardiovascular: Regular rate, irregular rhythm, Normal S1, Normal S2, No murmurs Abdomen: Soft, Non Tender, Non-Distended, No Hepato-splenomegaly Extremities: Edema, Capillary Refill Less than 3 Seconds Skin: No rashes, No breakdown Musculoskeletal: No Tenderness to Palpation of Joints or Extremities Neurological: Cranial nerves II-XII grossly intact, Motor Exam 5/5 strength throughout, Sensory exam intact to light touch and pain Psych/Mental Status: Normal Affect, Appropriate Assessment & Plan Assessment/Plan (1) Hemoptysis: (2) Pneumonia: (3) Acute respiratory failure with hypoxia: (4) Toxic metabolic encephalopathy: (5) Leukocytosis: (6) Hypokalemia: (7) Thrush: PLAN: Plan 1. Acute hypoxic respiratory failure secondary to MSSA pneumonia/hemoptysis with oral thrush/toxic versus metabolic encephalopathy/history of laryngeal cancer/COPD ? Had a tracheostomy placed at outside facility, continue with inhalers ? He has been tolerating trach mask during the day, will repeat an ABG in the morning per the building components designer ? He did complete his course of antibiotics, will reculture given his increased secretions and having to be put back on the ventilator yesterday also his white count did climb a little bit ? His vest therapy was discontinued and he is tolerating tube feeds ? Appreciate pulmonology's assistance, may benefit from LTAC placement ? Because of his hemoptysis anticoagulation was held hemoglobin has stabilized, so his subcu Lovenox was restarted ? Continue with the nystatin swish and spit ? His confusion is improving 2. Chronic A-fib/nonobstructive CAD/chronic diastolic HF/HTN/HLD/history of CVA/history of AAA repaired in 2004 ? He was having some issues with bradycardia so his Coreg was held will restart when able ? He is not on chronic anticoagulation at baseline ? Can resume aspirin on discharge ? Continue with statin, losartan, hydralazine, Lasix ? Last echo on 12/06/2019 demonstrated an EF of 65% 3. CKD 3a ? Creatinine is at baseline ? We will continue to monitor 4. History of gout ? Stable ? Continue with allopurinol 5. History of alcohol abuse ? Continue with phenobarbital taper ? She does drink about 3 vodkas a day per outside hospital 6. BPH ? Stable ? Continue with Flomax DVT: Lovenox Charges/Coding Visit Charges Inpatient E&M: 99541 Subs Hosp L2
[2022-09-08] MEDS: Juven (unflavored) Packet 1 PACKET NG (09:28)
[2022-09-08] MEDS: Losartan Potassium 50 MG Tablet PO ×2 (09:28→21:16)
[2022-09-08] MEDS: buPROPion 75 MG Tablet PO ×2 (09:28→21:16)
[2022-09-08] MEDS: Allopurinol 100 MG Tablet PO (09:28)
[2022-09-08] MEDS: Furosemide 40 MG Tablet PO (09:29)
[2022-09-08] MEDS: CHLORHEXIDINE GLUC 2% CLOTH 1 EACH TOWELETTE TOPICAL (09:29)
[2022-09-08] MEDS: Chlorhexidine 15 ML PO ×2 (09:29→21:18)
[2022-09-08] MEDS: NYSTATIN 500,000 UNIT/5 ML UDC 500000 UNIT PO ×4 (09:29→21:15)
[2022-09-08] MEDS: Nystatin Powder 15gm Bottle 1 APPLIC TOPICAL ×2 (09:30→21:19)
[2022-09-08] MEDS: amLODIPine 10 MG Tablet PO (09:30)
[2022-09-08] MEDS: Senna/Docusate Sodium 1 Tablet 2 TABLET PO (09:31)
[2022-09-08] MEDS: Juven (unflavored) Packet 1 PACKET PO (15:20)
--- NOTE | 2022-09-08 15:20 | CASEMGMT ---
Social Work Follow up phone call to Rebekah at [facility]. Rebekah states that she has spoke with her team and pts dgt Miryam. If pt continues with aggressive care (full code status and aggressive treatment of respiratory issues) then [facility] cannot accept pt back. If pt would be changed to DNR and want hospice services then they could accept pt back. Rebekah also states that [facility] would follow the same criteria for accepting pt. There are 4 different facilities within their corporation across the [facility] who would be able to accommodate pt, but pt's dgt stated they are too far away. Phone call to RYAN Miryam Penn. Miryam states she received the above information from [facility] and is considering options. Miryam is inquiring if pt is hospice appropriate. NISA explained that this information would need to come from physician. SW to follow up on this. Miryam is uncertain what to do as she states pt is a fighter. Miryam would like to talk to her sister and pt regarding options. Miryam would like pt to stay in [facility] for SNF care. NISA spoke with [facility] and [facility] who state they do take pts with trach but will need more information. GAEL left with [facility], [place] [facility] and [place]. No answer at [facility], will follow up. SHAHEEN Scott
[2022-09-08] MEDS: Enoxaparin 40 MG/0.4 ML Syringe SC (20:25)
[2022-09-08] MEDS: Acetaminophen 325 MG Tablet 650 MG PO (21:14)
[2022-09-08] MEDS: MELATONIN 3 MG TABLET PO (21:14)
[2022-09-08] MEDS: Atorvastatin Calcium 80 MG Tablet PO (21:15)
[2022-09-08] MEDS: hydrOXYzine PAM 25 MG Capsule 50 MG PO (21:18)
[2022-09-09] VITALS (32 sets, daily range): BP systolic 108–161; BP diastolic 48–91; PULSE 43–71; RESP 17–24; TEMP 36.1–36.7; O2SAT 90–98; BMI 28.5
[2022-09-09] MEDS: guaiFENesin 10 ML UDC (200MG/10ML) NG ×4 (00:18→17:25)
[2022-09-09] MEDS: Phenobarbital 32.4 MG Tablet GT ×2 (03:46→08:37)
[2022-09-09 05:26] LABS: Allen Test Positive; Base Excess 4 mmol/L (-2 to +2); Bicarbonate 27.7 mmol/L (22-26); Blood Gas Specimen Type ART; FI02 40; O2 Delivery Device T Collar; PO2 68 mmHG (75-100); SITE R Radial; SO2 94 % (95-99); Total Carbon Dioxide 29 mmol/L; pCO2 40.7 mmHg (35-45); pH 7.44 (7.35-7.45)
[2022-09-09] MEDS: hydrALAZINE 25 MG Tablet PO ×3 (06:16→21:03)
[2022-09-09] MEDS: Budesonide Respules 0.5 MG/2 ML AMPUL.NEB. INHALATION ×2 (06:42→19:34)
[2022-09-09 06:52] LABS: Absolute Lymphocyte Count 0.87 X10^3/uL (0.83-4.51); Absolute Neutrophil Count 8.4 X10^3/uL (2.0-7.7); Basophil# 0.04 X10^3/uL; Basophil% 0.4 % (0-1); Eosinophils% 1.9 % (0-5); Hematocrit 26.3 % (40-54); Hemoglobin 8.5 g/dL (13.0-16.5); Lymphocyte # 0.87 X10^3/ul (0.83-4.51); Lymphocyte % 8.2 % (19-41); Mean Corp Hgb Conc 32.3 g/dL (32-36); Mean Corpuscular Volume 98.9 fL (80-94); Mean Platelet Vol. 11.2 fl (6.2-12.0); Monocyte# 1.07 X10^3/uL; NRBC Flagged by Analyzer 0 % (0-5); Neutrophil # 8.37 X10^3/uL (2.7-7.7); Neutrophil % 78.5 % (47-70); Platelet Count 236 K/mm3 (150-450); RBC Distribution Width CV 14.1 % (11.6-14.6); RBC Distribution Width SD 50.6 fl (35.1-43.9); Red Blood Count 2.66 M/mm3 (4.6-6.2); White Blood Count 10.7 K/mm3 (4.4-11.0)
[2022-09-09 07:05] LABS: Anion Gap 4 (5-15); BUN 42 mg/dL (7-18); BUN/Creat Ratio 47.5 RATIO (10-20); Calcium,Total 8.3 mg/dL (8.5-10.1); Chloride 103 mmol/L (98-107); Creatinine, Serum 0.88 mg/dL (0.70-1.30); EST Glomerular Filtration Rate 87 mL/min (>60); Est Glom Filt Rate - Afr Amer 105 mL/min (>60); Estimated Creatinine Clearance 68.59 ml/min; Glucose 88 mg/dL (74-106); Potassium 3.8 mmol/L (3.5-5.1); Sodium Level 134 mmol/L (136-145)
--- NOTE | 2022-09-09 07:39 | PCM.PN.INT ---
Assessment & Plan Assessment/Plan (1) Respiratory failure: QUALIFIERS: Chronicity: acute Respiratory failure complication: hypoxia Qualified Code(s): J96.01 - Acute respiratory failure with hypoxia (2) Pneumonia: PLAN: Plan RECOMMENDATIONS: 1. Continue to attempt trach mask trials. Cultures no growth to date 2. Attempt to get out of bed 3. Okay to resume anticoagulation 4. Continue phenobarb taper. Continue as needed Ativan. 5. Possibly remove NG and encourage p.o. intake 6. Possible need for LTAC investigation for disposition IMPRESSIONS: 1. Acute hypoxemic respiratory failure secondary to MSSA pneumonia Clinical concern for bilateral multifocal MSSA pneumonia as precipitating etiology for acute presentation, with associated mucous plugging. Secretions appear to be improving. Plan to continue aggressive bronchopulmonary hygiene. Patient has completed a course of antimicrobials. Unfortunately, patient has had increased secretions following his protracted trach collar trial. Cultures are showing no growth to date, but secretions have significantly worsened requiring frequent suctioning. We will attempt trach trials again today. Patient may need to be evaluated for LTAC placement 2. History of alcohol dependency/toxic-metabolic encephalopathy The patient is apparently receiving vodka 3 times daily at his nursing facility. Recommend monitoring for any signs of alcohol withdrawal. Patient has been loaded on thiamine and folate. Will continue phenobarbital taper for more basal control to see if mentation can be stabilized. We will attempt to discontinue NG and see if p.o intake can be stimulated. Patient has no history of connection following laryngectomy, so could eat if mentation continues to improve. 3. History of atrial fibrillation/coronary artery disease/questionable COPD/hypertension/hyperlipidemia/AAA/history of laryngeal CA Complicates care, management, recovery and prognosis. Continue home medications as indicated. PT/OT to work with the patient. Speech therapy following regarding dietary advancement. If mentation improves, likely okay for the patient to eat despite mechanical ventilation requirement Subjective Subjective Patient did okay overnight. However, patient has required frequent suctioning by staff despite negative cultures. Patient is not reporting any pain. Patient has had some bradycardia overnight, but no associated hypotension. Objective Data Objective Data Vital Signs: Vital Signs Temp Pulse Resp BP Pulse Ox O2 Del Method O2 Flow Rate 36.1 C L 43 L 18 116/51 L 96 Trach Collar 10 09/09/22 06:00 09/09/22 07:00 09/09/22 07:00 09/09/22 07:00 09/09/22 07:00 09/09/22 07:00 09/09/22 05:06 FiO2 35 09/09/22 06:42 Oxygen Flow Rate (L/min) 10 Oxygen Delivery Method Trach Collar Weight: 95.4 kg Body Mass Index (BMI) 28.5 Intake & Output: Intake and Output for Last 24 Hours 09/07/22 09/08/22 09/09/22 23:59 23:59 23:59 Intake Total 1961.25 / 2111.25 1750 / 1750 540 / 540 Output Total 1599 / 1999 2175 / 2175 250 / 250 Balance 361.25 / 111.25 -425 / -425 290 / 290 Lab / Micro Data Attestation: I reviewed the patient's lab results. Result Diagrams: 09/09/22 06:40 09/09/22 06:40 Labs: Laboratory Results - last 24 hr 09/08/22 04:05: Sodium 134 L, Potassium 4.1, Chloride 105, Carbon Dioxide 27.0, Anion Gap 2 L, BUN 41 H, Creatinine 0.88, Estim Creat Clear Calc 68.59, Est GFR (MDRD) Af Amer 106, Est GFR (MDRD) Non-Af 87, BUN/Creatinine Ratio 46.5 H, Glucose 108 H, Calcium 8.5 09/09/22 06:40: WBC 10.7, RBC 2.66 L, Hgb 8.5 L, Hct 26.3 L, MCV 98.9 H, MCH 32.0, MCHC 32.3, RDW Std Deviation 50.6 H, RDW Coeff of [place]on 14.1, Plt Count 236, MPV 11.2, Immature Gran % (Auto) 1.000 H, Neut % (Auto) 78.5 H, Lymph % (Auto) 8.2 L, [place] % (Auto) 10.0, Eos % (Auto) 1.9, Baso % (Auto) 0.4, Absolute Neuts (auto) 8.4 H, Absolute Lymphs (auto) 0.87, Nucleated RBC % 0 09/09/22 06:40: Sodium 134 L, Potassium 3.8, Chloride 103, Carbon Dioxide 27.0, Anion Gap 4 L, BUN 42 H, Creatinine 0.88, Estim Creat Clear Calc 68.59, Est GFR (MDRD) Af Amer 105, Est GFR (MDRD) Non-Af 87, BUN/Creatinine Ratio 47.5 H, Glucose 88, Calcium 8.3 L Micro: Microbiology 09/07/22 13:15 Sputum, Induced/Lukens Gram Stain - Final 09/07/22 13:15 Sputum, Induced/Lukens Respiratory Culture - Preliminary Culture exhibits no growth. 08/30/22 23:41 Sputum, Induced/Lukens Gram Stain - Final 08/30/22 23:41 Sputum, Induced/Lukens Respiratory Culture - Final Staphylococcus aureus 08/30/22 23:41 Mucosa - Nasopharyngeal Respiratory Panel (PCR) - Final 08/30/22 23:35 Urine Catheter - Catheter Legionella Antigen - Final 08/30/22 23:35 Urine Catheter - Catheter Streptococcus pneumoniae Antigen (M - Final ABG Data ABG results: ABG 09/09/22 05:22 Specimen Type ART Sample Site R Radial pH 7.44 Bicarbonate Actual 27.7 H Total CO2 29 Base Excess 4 H O2 Saturation 94 L O2 % 40 ABG pCO2 40.7 ABG pO2 68 L Dougie Test Positive O2 Delivery Device T Collar Attestation: I personally reviewed and interpreted this ABG as follows: (Chronic metabolic acidosis with increased AA gradient) Physical Exam Const alert and no apparent distress Constitutional Narrative: Resting comfortably on trach mask HEENT normocephalic and head/scalp atraumatic Eyes PERRL and EOMs intact bilaterally Neck supple Neck Narrative: Stable appearing tracheostomy site. Chest inspection of chest normal Resp normal respiratory effort Auscultation: rhonchi throughout (Improves with suctioning, but patient unable to cough clear) and diminished lung sounds; Negative for rales or wheezes Cardio regular rate, regular rhythm, S1 normal heart sound, S2 normal heart sound and no murmurs Rhythm: abnormal rhythm GI normal to inspection, nondistended, normoactive bowel sounds Extremity General Extremity: edema bilateral upper extremity and lower extremity; Negative for clubbing Skin no rashes or lesions noted Neuro Neuro Narrative: Arouses and follows simple commands. Psych Mood & Affect: flat affect Charges/Coding Visit Charges Inpatient E&M: 77323 Subs Hosp L3
[2022-09-09] MEDS: Nystatin Powder 15gm Bottle 1 APPLIC TOPICAL ×2 (08:21→21:02)
[2022-09-09] MEDS: Furosemide 40 MG Tablet PO (08:21)
[2022-09-09] MEDS: NYSTATIN 500,000 UNIT/5 ML UDC 500000 UNIT PO ×4 (08:21→21:02)
[2022-09-09] MEDS: Allopurinol 100 MG Tablet PO (08:22)
[2022-09-09] MEDS: Juven (unflavored) Packet 1 PACKET PO ×2 (08:22→17:17)
[2022-09-09] MEDS: Chlorhexidine 15 ML PO ×2 (08:26→21:55)
[2022-09-09] MEDS: CHLORHEXIDINE GLUC 2% CLOTH 1 EACH TOWELETTE TOPICAL ×2 (08:26→09:05)
--- NOTE | 2022-09-09 09:19 | PN.HOSP_ITS ---
Subjective Subjective Doing well, no issues overnight. So far repeat cultures yesterday because of increased sputum were negative white count has resolved Objective Data Objective Data Vital Signs: Vital Signs Temp Pulse Resp BP Pulse Ox O2 Del Method O2 Flow Rate 97.0 F L 46 L 17 121/63 H 98 Trach Collar 10 09/09/22 08:00 09/09/22 08:00 09/09/22 08:00 09/09/22 08:00 09/09/22 08:00 09/09/22 08:00 09/09/22 05:06 FiO2 40 09/09/22 08:00 Oxygen Flow Rate (L/min) 10 Oxygen Delivery Method Trach Collar Weight: 210 lb 5.136 oz Body Mass Index (BMI) 28.5 Intake & Output: Intake and Output for Last 24 Hours 09/08/22 09/09/22 09/10/22 03:59 03:59 03:59 Intake Total 2111.25 / 2291.25 1590 / 1590 410 / 410 Output Total 1999 / 1999 1925 / 192 200 / 200 Balance 111.25 / 291.25 -335 / -335 210 / 210 Lab / Micro Data Result Diagrams: 09/09/22 06:40 09/09/22 06:40 Labs: Laboratory Results - last 24 hr 09/09/22 06:40: WBC 10.7, RBC 2.66 L, Hgb 8.5 L, Hct 26.3 L, MCV 98.9 H, MCH 32.0, MCHC 32.3, RDW Std Deviation 50.6 H, RDW Coeff of [place] 14.1, Plt Count 236, MPV 11.2, Immature Gran % (Auto) 1.000 H, Neut % (Auto) 78.5 H, Lymph % (Auto) 8.2 L, [place] % (Auto) 10.0, Eos % (Auto) 1.9, Baso % (Auto) 0.4, Absolute Neuts (auto) 8.4 H, Absolute Lymphs (auto) 0.87, Nucleated RBC % 0 09/09/22 06:40: Sodium 134 L, Potassium 3.8, Chloride 103, Carbon Dioxide 27.0, Anion Gap 4 L, BUN 42 H, Creatinine 0.88, Estim Creat Clear Calc 68.59, Est GFR (MDRD) Af Amer 105, Est GFR (MDRD) Non-Af 87, BUN/Creatinine Ratio 47.5 H, Glucose 88, Calcium 8.3 L Micro: Microbiology 09/07/22 13:15 Sputum, Induced/Lukens Gram Stain - Final 09/07/22 13:15 Sputum, Induced/Lukens Respiratory Culture - Final Culture exhibits no growth. 08/30/22 23:41 Sputum, Induced/Lukens Gram Stain - Final 08/30/22 23:41 Sputum, Induced/Lukens Respiratory Culture - Final Staphylococcus aureus 08/30/22 23:41 Mucosa - Nasopharyngeal Respiratory Panel (PCR) - Final 08/30/22 23:35 Urine Catheter - Catheter Legionella Antigen - Final 08/30/22 23:35 Urine Catheter - Catheter Streptococcus pneumoniae Antigen (M - Final ABG Data ABG results: ABG 09/09/22 05:22 Specimen Type ART Sample Site R Radial pH 7.44 Bicarbonate Actual 27.7 H Total CO2 29 Base Excess 4 H O2 Saturation 94 L O2 % 40 ABG pCO2 40.7 ABG pO2 68 L Dougie Test Positive O2 Delivery Device T Collar Physical Exam Narrative General: Alert, cooperative, No apparent distress HEENT: Atraumatic, PERRLA, EOMI, Normocephalic, trach Oral: Moist Mucosa Neck: Supple, No JVD Lungs: Diminished, Normal air movement, rhonchi, No wheeze, No rales Cardiovascular: Regular rate, irregular rhythm, Normal S1, Normal S2, No murmurs Abdomen: Soft, Non Tender, Non-Distended, No Hepato-splenomegaly Extremities: Edema, Capillary Refill Less than 3 Seconds Skin: No rashes, No breakdown Musculoskeletal: No Tenderness to Palpation of Joints or Extremities Neurological: Cranial nerves II-XII grossly intact, Motor Exam 5/5 strength throughout, Sensory exam intact to light touch and pain Psych/Mental Status: Normal Affect, Appropriate Assessment & Plan Assessment/Plan (1) Hemoptysis: (2) Pneumonia: (3) Acute respiratory failure with hypoxia: (4) Toxic metabolic encephalopathy: (5) Leukocytosis: (6) Hypokalemia: (7) Thrush: PLAN: Plan 1. Acute hypoxic respiratory failure secondary to MSSA pneumonia/hemoptysis with oral thrush/toxic versus metabolic encephalopathy/history of laryngeal cancer/COPD ? Had a tracheostomy placed at outside facility, continue with inhalers ? He has been tolerating trach mask during the day ? He did complete his course of antibiotics, repeat sputum cultures are negative we will hold off on antibiotics as his leukocytosis has resolved from yesterday, likely stress response ? His vest therapy was discontinued and he is tolerating tube feeds ? Appreciate pulmonology's assistance, may benefit from LTAC placement ? Because of his hemoptysis anticoagulation was held hemoglobin has stabilized, so his subcu Lovenox was restarted ? Continue with the nystatin swish and spit ? His confusion is improving 2. Chronic A-fib/nonobstructive CAD/chronic diastolic HF/HTN/HLD/history of CVA/history of AAA repaired in 2004 ? He was having some issues with bradycardia so his Coreg was held will restart when able ? He is not on chronic anticoagulation at baseline ? Can resume aspirin on discharge ? Continue with statin, losartan, hydralazine, Lasix ? Last echo on 12/06/2019 demonstrated an EF of 65% 3. CKD 3a ? Creatinine is at baseline ? We will continue to monitor 4. History of gout ? Stable ? Continue with allopurinol 5. History of alcohol abuse ? Continue with phenobarbital taper ? She does drink about 3 vodkas a day per outside hospital 6. BPH ? Stable ? Continue with Flomax DVT: Lovenox Charges/Coding Visit Charges Inpatient E&M: 27056 Subs Hosp L2
[2022-09-09] MEDS: buPROPion 75 MG Tablet PO ×2 (09:43→21:02)
[2022-09-09] MEDS: amLODIPine 10 MG Tablet PO (09:43)
[2022-09-09] MEDS: Losartan Potassium 50 MG Tablet PO ×2 (09:43→21:02)
--- NOTE | 2022-09-09 09:52 | CASEMGMT ---
Addendum entered by Nicolle Yanez 09/09/22 11:15: Social Work SW received a message from [facility], they can take trach patients but not if they are on vent settings. SW also spoke w/[facility], they would be able to take a pt with a trach on vent settings, and would more likely take a pt with a trach on vent settings than a pt with a trach NOT on vent settings. SW will continue to follow. DAVID Phelps Addendum entered by Nicolle Yanez 09/09/22 10:13: Social Work Carissa from [facility] called back, she states they can take patients with a trach, and with vent settings through the trach. SW will continue to follow. DAVID Phelps Original Note: Social Work SW participated in ICU rounds this morning. Pt is still on the vent through the trach in the evening times. SW called [facility], they cannot take a pt with a trach. [facility] also said no. SW called [facility], they will let this SW know if it's a possibility. SW called [facility], pt would need to be off the vent in order for them to consider. SW called [facility], message left. SW called [facility](as they took vent pts in the past), message left. SW will continue to follow, will make the appropriate referrals, w/daughter's consent, when appropriate. DAVID Phelps
--- NOTE | 2022-09-09 12:37 | CASEMGMT ---
Social Work Phone conversation with pt dgt Miryam Penn to followup on conversation yesterday. SW explained that hospice has not been discussed by hospital staff to this point but goals of care would be up to pt and family. Miryam states pt has had the trach for 25 years and has been able to manage it and live with quality of life. Miryam confirms pt cannot return home at time of d/c and will need SNF. NISA explained that SNF choices will be dependent on type of care pt needs/goals of care (hospice, trach with vent settings, trach without vent settings) and that different facilities will be available for different levels of need. Miryam would like to talk to her sister Omaira about goals of care as well. SW encouraged pt to speak with nursing regarding medical questions and updates. Miryam confirms that she has spoken to nursing daily and is appreciative of information. Will monitor pt over the weekend and readdress situation beginning of next week for appropriate discharge planning and level of care. SHAHEEN Scott
[2022-09-09] MEDS: Atorvastatin Calcium 80 MG Tablet PO (21:02)
[2022-09-09] MEDS: Enoxaparin 40 MG/0.4 ML Syringe SC (21:02)
[2022-09-09] MEDS: hydrOXYzine PAM 25 MG Capsule 50 MG PO (21:11)
[2022-09-09] MEDS: MELATONIN 3 MG TABLET PO (21:12)
[2022-09-09] MEDS: Acetaminophen 325 MG Tablet 650 MG PO (21:12)
[2022-09-10] VITALS (24 sets, daily range): BP systolic 119–199; BP diastolic 54–88; PULSE 48–95; RESP 18–23; TEMP 36.3–36.8; O2SAT 30–96; BMI 28.6
[2022-09-10 04:47] LABS: Absolute Lymphocyte Count 0.88 X10^3/uL (0.83-4.51); Absolute Neutrophil Count 10.2 X10^3/uL (2.0-7.7); Basophil# 0.04 X10^3/uL; Basophil% 0.3 % (0-1); Eosinophil# 0.18 X10^3/uL; Eosinophils% 1.4 % (0-5); Hematocrit 26.9 % (40-54); Hemoglobin 8.5 g/dL (13.0-16.5); Lymphocyte # 0.88 X10^3/ul (0.83-4.51); Lymphocyte % 6.9 % (19-41); Mean Corp Hgb Conc 31.6 g/dL (32-36); Mean Corpuscular Hgb 31.8 pg (27.0-32.0); Mean Corpuscular Volume 100.7 fL (80-94); Mean Platelet Vol. 11.3 fl (6.2-12.0); Monocyte# 1.32 X10^3/uL; Monocyte% 10.3 % (0-10); NRBC Flagged by Analyzer 0 % (0-5); Neutrophil # 10.23 X10^3/uL (2.7-7.7); Neutrophil % 80.2 % (47-70); Platelet Count 270 K/mm3 (150-450); RBC Distribution Width CV 13.9 % (11.6-14.6); RBC Distribution Width SD 51.5 fl (35.1-43.9); Red Blood Count 2.67 M/mm3 (4.6-6.2); White Blood Count 12.8 K/mm3 (4.4-11.0)
[2022-09-10 04:59] LABS: Anion Gap 5 (5-15); BUN 46 mg/dL (7-18); BUN/Creat Ratio 50.5 RATIO (10-20); Calcium,Total 8.6 mg/dL (8.5-10.1); Chloride 102 mmol/L (98-107); Creatinine, Serum 0.91 mg/dL (0.70-1.30); EST Glomerular Filtration Rate 84 mL/min (>60); Est Glom Filt Rate - Afr Amer 102 mL/min (>60); Estimated Creatinine Clearance 66.32 ml/min; Glucose 115 mg/dL (74-106); Potassium 4.1 mmol/L (3.5-5.1); Sodium Level 135 mmol/L (136-145)
[2022-09-10] MEDS: CHLORHEXIDINE GLUC 2% CLOTH 1 EACH TOWELETTE TOPICAL (05:07)
[2022-09-10] MEDS: hydrALAZINE 25 MG Tablet PO ×3 (05:07→22:30)
[2022-09-10] MEDS: guaiFENesin 10 ML UDC (200MG/10ML) PO ×4 (05:07→23:57)
[2022-09-10] MEDS: Menthol/Lanolin/Calamine/Znox 113 GM Tube 1 APPLIC TOPICAL ×3 (05:07→22:30)
[2022-09-10] MEDS: Budesonide Respules 0.5 MG/2 ML AMPUL.NEB. INHALATION ×2 (07:18→19:59)
--- NOTE | 2022-09-10 07:18 | PCM.PN.INT ---
Assessment & Plan Assessment/Plan (1) Respiratory failure: QUALIFIERS: Chronicity: acute Respiratory failure complication: hypoxia Qualified Code(s): J96.01 - Acute respiratory failure with hypoxia (2) Pneumonia: PLAN: Plan RECOMMENDATIONS: 1. Continue to attempt trach mask trials. Obtain ABG 2. Attempt to get out of bed 3. Okay to resume anticoagulation 4. Completed phenobarb taper. 5. Encourage continued p.o. intake 6. Potential transfer to the floor pending results of ABG IMPRESSIONS: 1. Acute hypoxemic respiratory failure secondary to MSSA pneumonia Clinical concern for bilateral multifocal MSSA pneumonia as precipitating etiology for acute presentation, with associated mucous plugging. Secretions appear to be improving. Plan to continue aggressive bronchopulmonary hygiene. Patient has completed a course of antimicrobials. Unfortunately, patient has had increased secretions following his initial protracted trach collar trial. Cultures are showing no growth to date. Patient appears to have responded well to increase mobility with decreased secretions while maintaining saturations. Will obtain an ABG. If adequate oxygenation and ventilation, likely okay to go to the floor. Patient will likely still need a respiratory disposition as trach will likely stay in place for least 1 to 2 months. 2. History of alcohol dependency/toxic-metabolic encephalopathy Completed phenobarb taper. The patient is apparently receiving vodka 3 times daily at his nursing facility. Recommend monitoring for any signs of alcohol withdrawal. Patient has been loaded on thiamine and folate. Patient has tolerated p.o. intake. Patient has no history of connection following laryngectomy, so could eat if mentation continues to improve. 3. History of atrial fibrillation/coronary artery disease/questionable COPD/hypertension/hyperlipidemia/AAA/history of laryngeal CA Complicates care, management, recovery and prognosis. Continue home medications as indicated. PT/OT to work with the patient. Speech therapy following regarding dietary advancement. Subjective Subjective Patient did well overnight. No acute issues were reported. Patient has been able to stay on trach mask for over 24 hours. Secretions are significantly improved per nursing staff. Patient is not reporting any pain. Patient was able to tolerate some p.o. intake yesterday. Objective Data Objective Data Vital Signs: Vital Signs Temp Pulse Resp BP Pulse Ox O2 Del Method O2 Flow Rate 36.6 C 53 L 20 H 144/57 H 96 Trach Collar 10 09/10/22 05:00 09/10/22 07:00 09/10/22 07:00 09/10/22 07:00 09/10/22 07:00 09/10/22 07:00 09/09/22 05:06 FiO2 30 09/10/22 07:00 Oxygen Flow Rate (L/min) 10 Oxygen Delivery Method Trach Collar Weight: 96 kg Body Mass Index (BMI) 28.6 Intake & Output: Intake and Output for Last 24 Hours 09/08/22 09/09/22 09/10/22 23:59 23:59 23:59 Intake Total 1750 / 1750 1360 / 1360 100 / 100 Output Total 2175 / 2175 1225 / 1225 500 / 500 Balance -425 / -425 135 / 135 -400 / -400 Lab / Micro Data Attestation: I reviewed the patient's lab results. Result Diagrams: 09/10/22 04:35 09/10/22 04:35 Labs: Laboratory Results - last 24 hr 09/10/22 04:35: WBC 12.8 H, RBC 2.67 L, Hgb 8.5 L, Hct 26.9 L, MCV 100.7 H, MCH 31.8, MCHC 31.6 L, RDW Std Deviation 51.5 H, RDW Coeff of [place] 13.9, Plt Count 270, MPV 11.3, Immature Gran % (Auto) 0.900, Neut % (Auto) 80.2 H, Lymph % (Auto) 6.9 L, [place] % (Auto) 10.3 H, Eos % (Auto) 1.4, Baso % (Auto) 0.3, Absolute Neuts (auto) 10.2 H, Absolute Lymphs (auto) 0.88, Nucleated RBC % 0 09/10/22 04:35: Sodium 135 L, Potassium 4.1, Chloride 102, Carbon Dioxide 28.0, Anion Gap 5, BUN 46 H, Creatinine 0.91, Estim Creat Clear Calc 66.32, Est GFR (MDRD) Af Amer 102, Est GFR (MDRD) Non-Af 84, BUN/Creatinine Ratio 50.5 H, Glucose 115 H, Calcium 8.6 Micro: Microbiology 09/07/22 13:15 Sputum, Induced/Lukens Gram Stain - Final 09/07/22 13:15 Sputum, Induced/Lukens Respiratory Culture - Final Culture exhibits no growth. 08/30/22 23:41 Sputum, Induced/Lukens Gram Stain - Final 08/30/22 23:41 Sputum, Induced/Lukens Respiratory Culture - Final Staphylococcus aureus 08/30/22 23:41 Mucosa - Nasopharyngeal Respiratory Panel (PCR) - Final 08/30/22 23:35 Urine Catheter - Catheter Legionella Antigen - Final 08/30/22 23:35 Urine Catheter - Catheter Streptococcus pneumoniae Antigen (M - Final Physical Exam Const alert and no apparent distress Constitutional Narrative: Resting comfortably on trach mask HEENT normocephalic and head/scalp atraumatic Eyes PERRL and EOMs intact bilaterally Neck supple Neck Narrative: Stable appearing tracheostomy site. Chest inspection of chest normal Resp normal respiratory effort Auscultation: diminished lung sounds; Negative for rales, rhonchi or wheezes Cardio S1 normal heart sound, S2 normal heart sound and no murmurs Rate: bradycardia Rhythm: abnormal rhythm GI normal to inspection, nondistended, normoactive bowel sounds Extremity General Extremity: Negative for clubbing or edema Skin no rashes or lesions noted Neuro Neuro Narrative: Arouses and follows simple commands. Sensorium / Orientation: sedated on vent Psych Mood & Affect: flat affect Charges/Coding Visit Charges Inpatient E&M: 74035 Subs Hosp L3
[2022-09-10 07:41] LABS: Allen Test Positive; Base Excess 4 mmol/L (-2 to +2); Bicarbonate 27.6 mmol/L (22-26); Blood Gas Specimen Type ART; FI02 30; O2 Delivery Device T Collar; PO2 59 mmHG (75-100); SITE L Radial; SO2 93 % (95-99); Total Carbon Dioxide 29 mmol/L; pCO2 35.3 mmHg (35-45)
--- NOTE | 2022-09-10 09:42 | PCM.PN.HOSP ---
Subjective Subjective Doing well, no issues overnight. He did tolerate trach mask for 24 hours and his ABG this morning looks good Objective Data Objective Data Vital Signs: Vital Signs Temp Pulse Resp BP Pulse Ox O2 Del Method O2 Flow Rate 98.2 F 57 L 22 H 157/61 H 91 Trach Collar 8 09/10/22 08:00 09/10/22 09:00 09/10/22 09:00 09/10/22 09:00 09/10/22 09:00 09/10/22 09:00 09/10/22 07:35 FiO2 40 09/10/22 09:00 Oxygen Flow Rate (L/min) 8 Oxygen Delivery Method Trach Collar Weight: 211 lb 10.3 oz Body Mass Index (BMI) 28.6 Intake & Output: Intake and Output for Last 24 Hours 09/09/22 09/10/22 09/11/22 03:59 03:59 03:59 Intake Total 1590 / 1590 1120 / 1120 100 / 100 Output Total 1925 / 1925 1175 / 1175 400 / 400 Balance -335 / -335 -55 / -55 -300 / -300 Lab / Micro Data Result Diagrams: 09/10/22 04:35 09/10/22 04:35 Labs: Laboratory Results - last 24 hr 09/10/22 04:35: WBC 12.8 H, RBC 2.67 L, Hgb 8.5 L, Hct 26.9 L, MCV 100.7 H, MCH 31.8, MCHC 31.6 L, RDW Std Deviation 51.5 H, RDW Coeff of [place] 13.9, Plt Count 270, MPV 11.3, Immature Gran % (Auto) 0.900, Neut % (Auto) 80.2 H, Lymph % (Auto) 6.9 L, [place] % (Auto) 10.3 H, Eos % (Auto) 1.4, Baso % (Auto) 0.3, Absolute Neuts (auto) 10.2 H, Absolute Lymphs (auto) 0.88, Nucleated RBC % 0 09/10/22 04:35: Sodium 135 L, Potassium 4.1, Chloride 102, Carbon Dioxide 28.0, Anion Gap 5, BUN 46 H, Creatinine 0.91, Estim Creat Clear Calc 66.32, Est GFR (MDRD) Af Amer 102, Est GFR (MDRD) Non-Af 84, BUN/Creatinine Ratio 50.5 H, Glucose 115 H, Calcium 8.6 Micro: Microbiology 09/07/22 13:15 Sputum, Induced/Lukens Gram Stain - Final 09/07/22 13:15 Sputum, Induced/Lukens Respiratory Culture - Final Culture exhibits no growth. 08/30/22 23:41 Sputum, Induced/Lukens Gram Stain - Final 08/30/22 23:41 Sputum, Induced/Lukens Respiratory Culture - Final Staphylococcus aureus 08/30/22 23:41 Mucosa - Nasopharyngeal Respiratory Panel (PCR) - Final 08/30/22 23:35 Urine Catheter - Catheter Legionella Antigen - Final 08/30/22 23:35 Urine Catheter - Catheter Streptococcus pneumoniae Antigen (M - Final ABG Data ABG results: ABG 09/10/22 07:36 Specimen Type ART Sample Site L Radial pH 7.50 H Bicarbonate Actual 27.6 H Total CO2 29 Base Excess 4 H O2 Saturation 93 L O2 % 30 ABG pCO2 35.3 ABG pO2 59 L Dougie Test Positive O2 Delivery Device T Collar Physical Exam Narrative General: Alert, cooperative, No apparent distress HEENT: Atraumatic, PERRLA, EOMI, Normocephalic, trach Oral: Moist Mucosa Neck: Supple, No JVD Lungs: Diminished, Normal air movement, no rhonchi, No wheeze, No rales Cardiovascular: Regular rate, irregular rhythm, Normal S1, Normal S2, No murmurs Abdomen: Soft, Non Tender, Non-Distended, No Hepato-splenomegaly Extremities: Edema, Capillary Refill Less than 3 Seconds Skin: No rashes, No breakdown Musculoskeletal: No Tenderness to Palpation of Joints or Extremities Neurological: Cranial nerves II-XII grossly intact, Motor Exam 5/5 strength throughout, Sensory exam intact to light touch and pain Psych/Mental Status: Normal Affect, Appropriate Assessment & Plan Assessment/Plan (1) Hemoptysis: (2) Pneumonia: (3) Acute respiratory failure with hypoxia: (4) Toxic metabolic encephalopathy: (5) Leukocytosis: (6) Hypokalemia: (7) Thrush: PLAN: Plan 1. Acute hypoxic respiratory failure secondary to MSSA pneumonia/hemoptysis with oral thrush/toxic versus metabolic encephalopathy/history of laryngeal cancer/COPD ? Had a tracheostomy placed at outside facility, continue with inhalers ? He has been tolerating trach mask during the day ? He did complete his course of antibiotics, repeat sputum cultures are negative we will hold off on antibiotics ? His vest therapy was discontinued and he is tolerating tube feeds, and is able to take p.o. with one-to-one supervision ? Appreciate pulmonology's assistance, may benefit from LTAC placement ? Because of his hemoptysis anticoagulation was held hemoglobin has stabilized, so his subcu Lovenox was restarted ? Continue with the nystatin swish and spit ? His confusion is improving 2. Chronic A-fib/nonobstructive CAD/chronic diastolic HF/HTN/HLD/history of CVA/history of AAA repaired in 2004 ? He was having some issues with bradycardia so his Coreg was held will restart when able ? He is not on chronic anticoagulation at baseline ? Can resume aspirin on discharge ? Continue with statin, losartan, hydralazine, Lasix ? Last echo on 12/06/2019 demonstrated an EF of 65% 3. CKD 3a ? Creatinine is at baseline ? We will continue to monitor 4. History of gout ? Stable ? Continue with allopurinol 5. History of alcohol abuse ?Phenobarbital taper is completed ? She does drink about 3 vodkas a day per outside hospital 6. BPH ? Stable ? Continue with Flomax DVT: Lovenox Charges/Coding Visit Charges Inpatient E&M: 16331 Subs Hosp L2
[2022-09-10] MEDS: Albuterol 2.5 MG/3 ML VIAL.NEB. INHALATION (09:54)
[2022-09-10] MEDS: Juven (unflavored) Packet 1 PACKET PO ×2 (10:27→17:16)
[2022-09-10] MEDS: Furosemide 40 MG Tablet PO (10:28)
[2022-09-10] MEDS: amLODIPine 10 MG Tablet PO (10:28)
[2022-09-10] MEDS: Chlorhexidine 15 ML PO (10:28)
[2022-09-10] MEDS: Losartan Potassium 50 MG Tablet PO ×2 (10:29→22:30)
[2022-09-10] MEDS: Nystatin Powder 15gm Bottle 1 APPLIC TOPICAL ×2 (10:29→22:29)
[2022-09-10] MEDS: buPROPion 75 MG Tablet PO ×2 (10:31→22:32)
[2022-09-10] MEDS: NYSTATIN 500,000 UNIT/5 ML UDC 500000 UNIT PO ×4 (10:31→22:29)
[2022-09-10] MEDS: Allopurinol 100 MG Tablet PO (10:34)
[2022-09-10] MEDS: Ipratropium/Albuterol Sulfate 3 ML AMPUL.NEB INHALATION ×2 (13:10→19:59)
[2022-09-10] MEDS: Enoxaparin 40 MG/0.4 ML Syringe SC (22:28)
[2022-09-10] MEDS: Atorvastatin Calcium 80 MG Tablet PO (22:29)
[2022-09-11] VITALS (15 sets, daily range): BP systolic 151–191; BP diastolic 57–89; PULSE 50–73; RESP 16–20; TEMP 36.3–36.8; O2SAT 85–96; BMI 28.8
[2022-09-11] MEDS: 0.9% Saline Lock 10 ML Syringe IV ×2 (02:58→21:05)
[2022-09-11] MEDS: Ondansetron 4 MG/2 ML Vial IV (02:58)
[2022-09-11] MEDS: hydrALAZINE 25 MG Tablet PO ×3 (05:35→21:05)
[2022-09-11] MEDS: Menthol/Lanolin/Calamine/Znox 113 GM Tube 1 APPLIC TOPICAL ×3 (05:35→21:06)
[2022-09-11] MEDS: guaiFENesin 10 ML UDC (200MG/10ML) PO ×4 (05:35→23:05)
[2022-09-11 06:37] LABS: Absolute Lymphocyte Count 0.84 X10^3/uL (0.83-4.51); Absolute Neutrophil Count 7.7 X10^3/uL (2.0-7.7); Basophil# 0.04 X10^3/uL; Basophil% 0.4 % (0-1); Eosinophil# 0.18 X10^3/uL; Eosinophils% 1.9 % (0-5); Hematocrit 25.2 % (40-54); Hemoglobin 8.2 g/dL (13.0-16.5); Lymphocyte # 0.84 X10^3/ul (0.83-4.51); Lymphocyte % 8.7 % (19-41); Mean Corp Hgb Conc 32.5 g/dL (32-36); Mean Corpuscular Hgb 31.9 pg (27.0-32.0); Mean Corpuscular Volume 98.1 fL (80-94); Mean Platelet Vol. 11.1 fl (6.2-12.0); Monocyte# 0.86 X10^3/uL; Monocyte% 8.9 % (0-10); NRBC Flagged by Analyzer 0 % (0-5); Neutrophil # 7.71 X10^3/uL (2.7-7.7); Neutrophil % 79.5 % (47-70); Platelet Count 298 K/mm3 (150-450); RBC Distribution Width CV 13.9 % (11.6-14.6); RBC Distribution Width SD 49.2 fl (35.1-43.9); Red Blood Count 2.57 M/mm3 (4.6-6.2); White Blood Count 9.7 K/mm3 (4.4-11.0)
[2022-09-11 06:57] LABS: Anion Gap 5 (5-15); BUN 40 mg/dL (7-18); Calcium,Total 8.7 mg/dL (8.5-10.1); Chloride 103 mmol/L (98-107); Creatinine, Serum 0.83 mg/dL (0.70-1.30); EST Glomerular Filtration Rate 93 mL/min (>60); Est Glom Filt Rate - Afr Amer 113 mL/min (>60); Estimated Creatinine Clearance 72.72 ml/min; Glucose 99 mg/dL (74-106); Sodium Level 136 mmol/L (136-145)
[2022-09-11] MEDS: Ipratropium/Albuterol Sulfate 3 ML AMPUL.NEB INHALATION ×3 (07:45→20:39)
[2022-09-11] MEDS: Budesonide Respules 0.5 MG/2 ML AMPUL.NEB. INHALATION ×2 (07:46→20:38)
--- NOTE | 2022-09-11 08:39 | PCM.PN.INT ---
Assessment & Plan Assessment/Plan (1) Respiratory failure: QUALIFIERS: Chronicity: acute Respiratory failure complication: hypoxia Qualified Code(s): J96.01 - Acute respiratory failure with hypoxia (2) Pneumonia: PLAN: Plan RECOMMENDATIONS: 1. Continue to attempt trach mask trials. 2. Attempt to get out of bed 3. Okay to resume anticoagulation 4. Completed phenobarb taper. Patient does not require alcohol at discharge 5. Encourage continued p.o. intake 6. Potential disposition of the respiratory ECF versus LTAC given secretion issues IMPRESSIONS: 1. Acute hypoxemic respiratory failure secondary to MSSA pneumonia Clinical concern for bilateral multifocal MSSA pneumonia as precipitating etiology for acute presentation, with associated mucous plugging. Secretions appear to be improving. Plan to continue aggressive bronchopulmonary hygiene. Patient has completed a course of antimicrobials. Unfortunately, patient has had increased secretions following his initial protracted trach collar trial. Cultures are showing no growth to date. Patient appears to have responded well to increase mobility with decreased secretions while maintaining saturations. Patient with adequate ventilation and oxygenation on previous ABG, but still requiring aggressive pulmonary toileting to maintain patency. Patient will likely still need a respiratory disposition to ECF versus LTAC as trach will likely stay in place for least 1 to 2 months. 2. History of alcohol dependency/toxic-metabolic encephalopathy Completed phenobarb taper. The patient is apparently receiving vodka 3 times daily at his nursing facility. Recommend monitoring for any signs of alcohol withdrawal. Patient has been loaded on thiamine and folate. Patient has tolerated p.o. intake. Patient has no history of connection following laryngectomy, so could eat if mentation continues to improve. 3. History of atrial fibrillation/coronary artery disease/questionable COPD/hypertension/hyperlipidemia/AAA/history of laryngeal CA Complicates care, management, recovery and prognosis. Continue home medications as indicated. PT/OT to work with the patient. Speech therapy following regarding dietary advancement. Subjective Subjective Patient did okay. Patient with no complaints this morning of pain. Patient did require endotracheal suctioning twice overnight secondary to secretions. Objective Data Objective Data Vital Signs: Vital Signs Temp Pulse Resp BP Pulse Ox O2 Del Method O2 Flow Rate 36.7 C 50 L 20 H 151/68 H 94 Trach Collar 10 09/11/22 05:33 09/11/22 05:35 09/11/22 05:33 09/11/22 05:33 09/11/22 05:33 09/11/22 08:00 09/11/22 08:00 FiO2 40 09/11/22 08:00 Oxygen Flow Rate (L/min) 10 Oxygen Delivery Method Trach Collar Weight: 96.5 kg Body Mass Index (BMI) 28.8 Intake & Output: Intake and Output for Last 24 Hours 09/09/22 09/10/22 09/11/22 23:59 23:59 23:59 Intake Total 1360 / 1360 690 / 810 280 / 280 Output Total 1225 / 1225 1250 / 1650 800 / 800 Balance 135 / 135 -560 / -840 -520 / -520 Lab / Micro Data Attestation: I reviewed the patient's lab results. Result Diagrams: 09/11/22 06:17 09/11/22 06:17 Labs: Laboratory Results - last 24 hr 09/11/22 06:17: WBC 9.7, RBC 2.57 L, Hgb 8.2 L, Hct 25.2 L, MCV 98.1 H, MCH 31.9, MCHC 32.5, RDW Std Deviation 49.2 H, RDW Coeff of [place] 13.9, Plt Count 298, MPV 11.1, Immature Gran % (Auto) 0.600, Neut % (Auto) 79.5 H, Lymph % (Auto) 8.7 L, [place] % (Auto) 8.9, Eos % (Auto) 1.9, Baso % (Auto) 0.4, Absolute Neuts (auto) 7.7, Absolute Lymphs (auto) 0.84, Nucleated RBC % 0 09/11/22 06:17: Sodium 136, Potassium 4.0, Chloride 103, Carbon Dioxide 28.0, Anion Gap 5, BUN 40 H, Creatinine 0.83, Estim Creat Clear Calc 72.72, Est GFR (MDRD) Af Amer 113, Est GFR (MDRD) Non-Af 93, BUN/Creatinine Ratio 48.0 H, Glucose 99, Calcium 8.7 Micro: Microbiology 09/07/22 13:15 Sputum, Induced/Lukens Gram Stain - Final 09/07/22 13:15 Sputum, Induced/Lukens Respiratory Culture - Final Culture exhibits no growth. 08/30/22 23:41 Sputum, Induced/Lukens Gram Stain - Final 08/30/22 23:41 Sputum, Induced/Lukens Respiratory Culture - Final Staphylococcus aureus 08/30/22 23:41 Mucosa - Nasopharyngeal Respiratory Panel (PCR) - Final 08/30/22 23:35 Urine Catheter - Catheter Legionella Antigen - Final 08/30/22 23:35 Urine Catheter - Catheter Streptococcus pneumoniae Antigen (M - Final Physical Exam Const alert and no apparent distress Constitutional Narrative: Resting comfortably on trach mask HEENT normocephalic and head/scalp atraumatic Eyes PERRL and EOMs intact bilaterally Neck supple Neck Narrative: Stable appearing tracheostomy site. Chest inspection of chest normal Resp normal respiratory effort Auscultation: diminished lung sounds; Negative for rales, rhonchi or wheezes Cardio regular rate, regular rhythm, S1 normal heart sound, S2 normal heart sound and no murmurs Rate: bradycardia Rhythm: abnormal rhythm GI normal to inspection, nondistended, normoactive bowel sounds Extremity General Extremity: Negative for clubbing or edema Skin no rashes or lesions noted Neuro Neuro Narrative: Arouses and follows simple commands. Sensorium / Orientation: sedated on vent Psych Mood & Affect: flat affect Charges/Coding Visit Charges Inpatient E&M: 12458 Subs Hosp L2
[2022-09-11] MEDS: Nystatin Powder 15gm Bottle 1 APPLIC TOPICAL ×2 (09:19→21:07)
[2022-09-11] MEDS: Juven (unflavored) Packet 1 PACKET PO ×2 (09:26→18:24)
[2022-09-11] MEDS: Furosemide 40 MG Tablet PO (09:27)
[2022-09-11] MEDS: Losartan Potassium 50 MG Tablet PO ×2 (09:27→21:06)
[2022-09-11] MEDS: amLODIPine 10 MG Tablet PO (09:27)
[2022-09-11] MEDS: buPROPion 75 MG Tablet PO ×2 (09:27→21:07)
[2022-09-11] MEDS: NYSTATIN 500,000 UNIT/5 ML UDC 500000 UNIT PO ×4 (09:27→21:07)
[2022-09-11] MEDS: Senna/Docusate Sodium 1 Tablet 2 TABLET PO (09:27)
[2022-09-11] MEDS: Allopurinol 100 MG Tablet PO (09:28)
--- NOTE | 2022-09-11 11:21 | PCM.PN.HOSP ---
Subjective Subjective Doing well, no issues overnight. He does require periodic endotracheal suctioning Objective Data Objective Data Vital Signs: Vital Signs Temp Pulse Resp BP Pulse Ox O2 Del Method O2 Flow Rate 97.3 F L 61 16 164/57 H 95 Trach Collar 9 09/11/22 09:20 09/11/22 09:20 09/11/22 09:20 09/11/22 09:20 09/11/22 09:20 09/11/22 09:20 09/11/22 09:20 FiO2 40 09/11/22 09:20 Oxygen Flow Rate (L/min) 9 Oxygen Delivery Method Trach Collar Weight: 212 lb 11.937 oz Body Mass Index (BMI) 28.8 Intake & Output: Intake and Output for Last 24 Hours 09/10/22 09/11/22 09/12/22 03:59 03:59 03:59 Intake Total 1120 / 1120 920 / 920 160 / 160 Output Total 1175 / 1175 1550 / 1550 400 / 400 Balance -55 / -55 -630 / -630 -240 / -240 Lab / Micro Data Result Diagrams: 09/11/22 06:17 09/11/22 06:17 Labs: Laboratory Results - last 24 hr 09/11/22 06:17: WBC 9.7, RBC 2.57 L, Hgb 8.2 L, Hct 25.2 L, MCV 98.1 H, MCH 31.9, MCHC 32.5, RDW Std Deviation 49.2 H, RDW Coeff of [place] 13.9, Plt Count 298, MPV 11.1, Immature Gran % (Auto) 0.600, Neut % (Auto) 79.5 H, Lymph % (Auto) 8.7 L, [place] % (Auto) 8.9, Eos % (Auto) 1.9, Baso % (Auto) 0.4, Absolute Neuts (auto) 7.7, Absolute Lymphs (auto) 0.84, Nucleated RBC % 0 09/11/22 06:17: Sodium 136, Potassium 4.0, Chloride 103, Carbon Dioxide 28.0, Anion Gap 5, BUN 40 H, Creatinine 0.83, Estim Creat Clear Calc 72.72, Est GFR (MDRD) Af Amer 113, Est GFR (MDRD) Non-Af 93, BUN/Creatinine Ratio 48.0 H, Glucose 99, Calcium 8.7 Micro: Microbiology 09/07/22 13:15 Sputum, Induced/Lukens Gram Stain - Final 09/07/22 13:15 Sputum, Induced/Lukens Respiratory Culture - Final Culture exhibits no growth. 08/30/22 23:41 Sputum, Induced/Lukens Gram Stain - Final 08/30/22 23:41 Sputum, Induced/Lukens Respiratory Culture - Final Staphylococcus aureus 08/30/22 23:41 Mucosa - Nasopharyngeal Respiratory Panel (PCR) - Final 08/30/22 23:35 Urine Catheter - Catheter Legionella Antigen - Final 08/30/22 23:35 Urine Catheter - Catheter Streptococcus pneumoniae Antigen (M - Final Physical Exam Narrative General: Alert, cooperative, No apparent distress HEENT: Atraumatic, PERRLA, EOMI, Normocephalic, trach Oral: Moist Mucosa Neck: Supple, No JVD, trach in place Lungs: Diminished, Normal air movement, no rhonchi, No wheeze, No rales Cardiovascular: Regular rate, irregular rhythm, Normal S1, Normal S2, No murmurs Abdomen: Soft, Non Tender, Non-Distended, No Hepato-splenomegaly Extremities: Edema, Capillary Refill Less than 3 Seconds Skin: No rashes, No breakdown Musculoskeletal: No Tenderness to Palpation of Joints or Extremities Neurological: Cranial nerves II-XII grossly intact, Motor Exam 5/5 strength throughout, Sensory exam intact to light touch and pain Psych/Mental Status: Normal Affect, Appropriate Assessment & Plan Assessment/Plan (1) Hemoptysis: (2) Pneumonia: (3) Acute respiratory failure with hypoxia: (4) Toxic metabolic encephalopathy: (5) Leukocytosis: (6) Hypokalemia: (7) Thrush: PLAN: Plan 1. Acute hypoxic respiratory failure secondary to MSSA pneumonia/hemoptysis with oral thrush/toxic versus metabolic encephalopathy/history of laryngeal cancer/COPD ? Had a tracheostomy placed at outside facility, continue with inhalers ? He has been tolerating trach mask during the day ? He did complete his course of antibiotics, repeat sputum cultures are negative we will hold off on antibiotics ? His vest therapy was discontinued and he is tolerating tube feeds, and is able to take p.o. with one-to-one supervision ? Appreciate pulmonology's assistance, may benefit from LTAC placement SPEP since he is continuing to need endotracheal suctioning ? Because of his hemoptysis anticoagulation was held hemoglobin has stabilized, so his subcu Lovenox was restarted ? Continue with the nystatin swish and spit 2. Chronic A-fib/nonobstructive CAD/chronic diastolic HF/HTN/HLD/history of CVA/history of AAA repaired in 2004 ? He was having some issues with bradycardia so his Coreg was held will restart when able ? He is not on chronic anticoagulation at baseline ? Can resume aspirin on discharge ? Continue with statin, losartan, hydralazine, Lasix ? Last echo on 12/06/2019 demonstrated an EF of 65% 3. CKD 3a ? Creatinine is at baseline ? We will continue to monitor 4. History of gout ? Stable ? Continue with allopurinol 5. History of alcohol abuse ?Phenobarbital taper is completed ? She does drink about 3 vodkas a day per outside hospital 6. BPH ? Stable ? Continue with Flomax DVT: Lovenox Charges/Coding Visit Charges Inpatient E&M: 23020 Subs Hosp L2
[2022-09-11] MEDS: Acetaminophen 325 MG Tablet 650 MG PO (18:23)
[2022-09-11] MEDS: Enoxaparin 40 MG/0.4 ML Syringe SC (21:05)
[2022-09-11] MEDS: Atorvastatin Calcium 80 MG Tablet PO (21:06)
--- NOTE | 2022-09-11 22:33 | CPS ---
Minimal breath sounds heard over left chest, almost absent. Right lung is clear.
--- NOTE | 2022-09-11 23:09 | RAD_ITS ---
INDICATION: Respiratory failure. EXAMINATION: Frontal view of the chest COMPARISON: Chest x-ray August 18, 2022. FINDINGS: Frontal view of the chest was obtained. A tracheostomy tube has been placed since the prior exam. The cardiac silhouette is mildly enlarged. Moderate right and moderate to large left pleural effusions are new since the prior exam. Atelectasis is associated. No pneumothorax. RAD/Chest 1 View (Portable) IMPRESSION: Moderate right and moderate to large left pleural effusions are new since the prior exam. Associated atelectasis. Superimposed infection is not excluded. Electronically Signed: Franky Cage MD at 3:06 EDT ,
[2022-09-12] VITALS (19 sets, daily range): BP systolic 118–199; BP diastolic 54–95; PULSE 56–105; RESP 18–24; TEMP 36.3–36.8; O2SAT 90–97; BMI 28.0
[2022-09-12] MEDS: Menthol/Lanolin/Calamine/Znox 113 GM Tube 1 APPLIC TOPICAL ×3 (05:23→21:32)
[2022-09-12] MEDS: guaiFENesin 10 ML UDC (200MG/10ML) PO ×3 (05:24→17:15)
[2022-09-12] MEDS: hydrALAZINE 25 MG Tablet PO ×3 (05:24→21:32)
[2022-09-12 06:08] LABS: Absolute Lymphocyte Count 0.77 X10^3/uL (0.83-4.51); Absolute Neutrophil Count 8.6 X10^3/uL (2.0-7.7); Basophil# 0.07 X10^3/uL; Basophil% 0.7 % (0-1); Eosinophil# 0.17 X10^3/uL; Eosinophils% 1.6 % (0-5); Hematocrit 31.5 % (40-54); Hemoglobin 9.3 g/dL (13.0-16.5); Lymphocyte # 0.77 X10^3/ul (0.83-4.51); Lymphocyte % 7.3 % (19-41); Mean Corp Hgb Conc 29.5 g/dL (32-36); Mean Corpuscular Hgb 31.4 pg (27.0-32.0); Mean Corpuscular Volume 106.4 fL (80-94); Mean Platelet Vol. 10.9 fl (6.2-12.0); Monocyte# 0.91 X10^3/uL; Monocyte% 8.6 % (0-10); NRBC Flagged by Analyzer 0 % (0-5); Neutrophil # 8.62 X10^3/uL (2.7-7.7); Platelet Count 316 K/mm3 (150-450); RBC Distribution Width CV 13.8 % (11.6-14.6); Red Blood Count 2.96 M/mm3 (4.6-6.2); White Blood Count 10.6 K/mm3 (4.4-11.0)
[2022-09-12 06:32] LABS: Anion Gap 6 (5-15); BUN 33 mg/dL (7-18); BUN/Creat Ratio 40.2 RATIO (10-20); Calcium,Total 8.8 mg/dL (8.5-10.1); Chloride 104 mmol/L (98-107); Creatinine, Serum 0.82 mg/dL (0.70-1.30); EST Glomerular Filtration Rate 95 mL/min (>60); Est Glom Filt Rate - Afr Amer 115 mL/min (>60); Glucose 90 mg/dL (74-106); Potassium 4.1 mmol/L (3.5-5.1); Sodium Level 137 mmol/L (136-145)
--- NOTE | 2022-09-12 06:58 | US_ITS ---
PROCEDURE: ULTRASOUND GUIDED THORACENTESIS. DATE: September 12, 2022. INDICATION: Male, 82 years old. Left pleural effusion PHYSICIAN: Gurinder De Jesus M.D. PROCEDURE: The risks, benefits, and alternatives to the procedure were explained to the patient. The specific risks of bleeding, infection, and pneumothorax requiring chest tube insertion were discussed and accepted. Written informed consent was obtained. Ultrasonographic evaluation of the left lower pleural space was carried out. An adequate pocket was identified. The patient was placed in the sitting, upright position. The overlying skin was prepped and draped in sterile fashion. 1% lidocaine was administered subcutaneously for local anesthesia. Under ultrasound guidance, a 5 [place] thoracentesis needle/catheter system was advanced into the left posterior lower pleural fluid collection. Approximately 640 mL of zain-colored fluid was drained. The catheter was removed, and a sterile dressing was applied. A specimen was collected and sent to the laboratory for analysis, as requested by the referring clinician. The patient tolerated the procedure well. A chest x-ray was ordered. US/Thoracentesis W US IMPRESSION: Ultrasound-guided left thoracentesis. Electronically Signed: Gurinder De Jesus MD at 15:08 EDT ,
[2022-09-12] MEDS: Budesonide Respules 0.5 MG/2 ML AMPUL.NEB. INHALATION ×2 (07:19→19:20)
[2022-09-12] MEDS: Ipratropium/Albuterol Sulfate 3 ML AMPUL.NEB INHALATION ×3 (07:19→19:20)
[2022-09-12 07:50] LABS: LDH 196 U/L (87-241)
--- NOTE | 2022-09-12 08:32 | NURSING ---
This RN called and gave report to MIESHA Coto at [facility] availability [facility].
[2022-09-12 08:48] LABS: International Normalized Ratio 1.3; Prothrombin Time (Protime)PT. 16.1 SECONDS (11.7-14.9)
[2022-09-12] MEDS: Nystatin Powder 15gm Bottle 1 APPLIC TOPICAL ×2 (08:54→21:32)
[2022-09-12] MEDS: NYSTATIN 500,000 UNIT/5 ML UDC 500000 UNIT PO ×4 (08:59→21:33)
[2022-09-12] MEDS: Juven (unflavored) Packet 1 PACKET PO ×2 (08:59→17:04)
[2022-09-12] MEDS: Polyethylene Glycol 3350 17 GM PACKET PO (08:59)
[2022-09-12] MEDS: Furosemide 40 MG Tablet PO (09:00)
[2022-09-12] MEDS: Losartan Potassium 50 MG Tablet PO ×2 (09:00→21:32)
[2022-09-12] MEDS: amLODIPine 10 MG Tablet PO (09:00)
[2022-09-12] MEDS: Senna/Docusate Sodium 1 Tablet 2 TABLET PO (09:00)
[2022-09-12] MEDS: buPROPion 75 MG Tablet PO ×2 (09:00→21:33)
[2022-09-12] MEDS: Allopurinol 100 MG Tablet PO (09:00)
[2022-09-12] MEDS: Acetaminophen 325 MG Tablet 650 MG PO ×2 (09:07→17:15)
[2022-09-12] MEDS: Famotidine 20 MG Tablet PO ×2 (09:07→21:33)
--- NOTE | 2022-09-12 09:52 | CASEMGMT ---
Discharge Planning Updates sent to [facility]. Bhumi Thomson
--- NOTE | 2022-09-12 10:01 | CASEMGMT ---
Social Work SW attempted to call daughter to review discharge options. Her voicemail is full so SW cannot leave a message. SW will continue to follow, will try again later. DAVID Phelps
--- NOTE | 2022-09-12 12:03 | CASEMGMT ---
Social Work SW called [facility], they confirmed that they still cannot take pt unless he is on hospice. SW tried to reach the daughter again, she does not answer and the voicemail continues to be full. DAVID Phelps
--- NOTE | 2022-09-12 13:36 | PCM.PN.HOSP ---
Reason for Visit Reason for Visit: Diagnoses Candidal stomatitis (08/30/22) Elevated white blood cell count, unspecified (08/30/22) Hypokalemia (08/30/22) Other toxic encephalopathy (08/30/22) Encephalopathy, unspecified (08/30/22) Pneumonia, unspecified organism (08/30/22) Acute respiratory failure with hypoxia (08/30/22) Respiratory failure, unspecified, unspecified whether with hypoxia or hypercapnia (08/30/22) Hemoptysis (08/30/22) Subjective Subjective Patient is an 82-year-old gentleman with multiple comorbidities admitted with progressive shortness of breath. Diagnosed with acute respiratory failure. Patient sputum cultures grew Staph aureus Objective Data Objective Data Vital Signs: Vital Signs Temp Pulse Resp BP Pulse Ox O2 Del Method O2 Flow Rate 98.1 F 58 L 18 176/95 H 94 Trach Collar 7 09/12/22 08:52 09/12/22 08:52 09/12/22 08:52 09/12/22 08:52 09/12/22 10:06 09/12/22 10:06 09/12/22 10:06 FiO2 40 09/12/22 07:19 Oxygen Flow Rate (L/min) 7 Oxygen Delivery Method Trach Collar Weight: 94 kg Body Mass Index (BMI) 28.0 Intake & Output: Intake and Output for Last 24 Hours 09/10/22 09/11/22 09/12/22 23:59 23:59 23:59 Intake Total 690 / 810 1220 / 1220 100 / 100 Output Total 1250 / 1650 2100 / 2100 450 / 450 Balance -560 / -840 -880 / -880 -350 / -350 Lab / Micro Data Result Diagrams: 09/12/22 05:56 09/12/22 05:56 Labs: Laboratory Results - last 24 hr 09/12/22 05:56: WBC 10.6, RBC 2.96 L, Hgb 9.3 L, Hct 31.5 L, MCV 106.4 H D, MCH 31.4, MCHC 29.5 L D, RDW Std Deviation 54.0 H, RDW Coeff of [place] 13.8, Plt Count 316, MPV 10.9, Immature Gran % (Auto) 0.800, Neut % (Auto) 81.0 H, Lymph % (Auto) 7.3 L, [place] % (Auto) 8.6, Eos % (Auto) 1.6, Baso % (Auto) 0.7, Absolute Neuts (auto) 8.6 H, Absolute Lymphs (auto) 0.77 L, Nucleated RBC % 0 09/12/22 05:56: Sodium 137, Potassium 4.1, Chloride 104, Carbon Dioxide 27.0, Anion Gap 6, BUN 33 H, Creatinine 0.82, Estim Creat Clear Calc 73.60, Est GFR (MDRD) Af Amer 115, Est GFR (MDRD) Non-Af 95, BUN/Creatinine Ratio 40.2 H, Glucose 90, Calcium 8.8 09/12/22 05:56: Lactate Dehydrogenase 196 09/12/22 08:15: PT 16.1 H, INR 1.3, APTT 41.0 H Micro: Microbiology 09/07/22 13:15 Sputum, Induced/Lukens Gram Stain - Final 09/07/22 13:15 Sputum, Induced/Lukens Respiratory Culture - Final Culture exhibits no growth. 08/30/22 23:41 Sputum, Induced/Lukens Gram Stain - Final 08/30/22 23:41 Sputum, Induced/Lukens Respiratory Culture - Final Staphylococcus aureus 08/30/22 23:41 Mucosa - Nasopharyngeal Respiratory Panel (PCR) - Final 08/30/22 23:35 Urine Catheter - Catheter Legionella Antigen - Final 08/30/22 23:35 Urine Catheter - Catheter Streptococcus pneumoniae Antigen (M - Final Radiography Diagnostic Testing: Radiology Impression Chest X-Ray 09/11/22 23:09 IMPRESSION: Moderate right and moderate to large left pleural effusions are new since the prior exam. Associated atelectasis. Superimposed infection is not excluded. Electronically Signed: Franky Cage MD at 3:06 EDT , Physical Exam Narrative GENERAL: cooperative HEENT: Atraumatic; normocephalic EYES; opacification of the left eye NECK; tracheostomy in place RESPIRATORY: Diminished to auscultation CARDIOVASCULAR:? Regular S1 S2, GI:? soft, normoactive bowel sounds, : No Renal angle tenderness; EXTREMITIES:?Edema of extremities MUSCULOSKELETAL:? no muscle wasting NEURO:? Awake;? no lateralizing signs. SKIN:? No Rash PSYCH; Flat? affect Assessment & Plan Assessment/Plan (1) Hemoptysis: (2) Pneumonia: (3) Acute respiratory failure with hypoxia: (4) Toxic metabolic encephalopathy: PLAN: Plan Patient is an 82-year-old gentleman with multiple comorbidities admitted with progressive shortness of breath. Diagnosed with acute respiratory failure. Patient sputum cultures grew Staph aureus 1. Acute hypoxic respiratory failure ? Secondary to MSSA pneumonia. Patient admitted to a monitored bed. Patient was placed on the vent on admission taken off and placed back on 14 123 finally weaned off to trach mask on 09/07/2019 2. Methicillin staph aureus sensitive pneumonia ? Patient has completed his antibiotic therapy 3. Hemoptysis ? Patient was on Lovenox discontinued restarted was hemoptysis resolved 4. Paroxysmal A-fib ? Rate controlled on beta-blockers patient not on systemic anticoagulation due to significant risk for falls 5.? History of laryngeal CA ? 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 History of AAA ? Status post repair in 2004 7.? COPD ? Currently not in exacerbation did continue patient bronchodilator treatment regimen 8.? Dyslipidemia -Patient is on statin therapy, continued at home dose 9.? Chronic alcohol dependence ? Patient is on phenobarb taper 10. History of gout ? Patient is on allopurinol 11. Hypertension - Blood pressure controlled, home medications continued with dose adjustment as needed 12. Physical deconditioning - Requested for PT OT eval and social insurance analyst to assist with discharge planning 13. Anemia - Secondary to chronic disorder as well as acute blood loss anemia from hemoptysis, monitoring H&H and transfuse if patient becomes symptomatic or hemoglobin falls below 7 14. Acute kidney injury ? Creatinine on 09/03/2022 was 1.43 kidney function back to baseline at 0.88 15. DVT prophylaxis - On enoxaparin Time spent in the patient's overall evaluation,decision-making process, review of diagnostic data, adjustment of management, discussion with other providers, nursing nursing and ancillary staff involved in patient's care documentation, 45 Minutes Charges/Coding Visit Charges Inpatient E&M: 95352 Subs Hosp L2
--- NOTE | 2022-09-12 14:22 | CASEMGMT ---
SW attempted to call patient's daughter Miryam again. Her voicemail was full. SW called patient's other daughter Omaira. Omaira was at the airport as she just returned from [place]. Omaira said she and her sister were going to talk about where to send patient tomorrow. Omaira said she won't get home until late tonight. Torrie Aguiar MSW GI
--- NOTE | 2022-09-12 14:25 | FLU_PTH ---
PATIENT: THIERRY ZELAYA LOC: [facility] U#:[id number] AGE/SX: 82/M ROOM: [facility] RE08/30/[address]: Dr. Jimmy Medina MD : 1940 BED: 1 DIS: 09/13/2022 SPEC #: [id number] RECD: 09/12/22 14:32 STATUS: PATRICIA REQ #: [id number] MINDY: 09/12/22 14:[address]: Jimmy Medina DEPT: CYTOLOGY RECD BY: Sylvia Cortes ENTERED: 09/13/22 07:50 SP TYPE: Fluid OTHR DR: MD Dr. Galo Bazan DO Dr. Eric Jopperi, DO Dr. Kathryn Lee, DO Dr. Nicholas F Kotsonis, MD M Gregory Barton, PA Tissues: Pleural fluid, NOS Procedures: Special Stain Group II Surgery Specimen Level IV Cytospin Fluid HEADER OPERATION: Ultrasound-guided thoracentesis PRE-OP DIAGNOSIS: Left pleural effusion TISSUE SUBMITTED: Thoracentesis fluid for cytology DIAGNOSIS CYTOLOGY Thoracentesis fluid for cytology (cytospin and cell block): Negative for malignant cells. AM:luisito 09/14/2022 CYTOLOGY STUDY Slides are reviewed. CYTOLOGY GROSS Received is 80 ml of yellow cloudy fluid labeled with the patient's name and and designated per the requisition as thoracentesis. Submitted for cytology preparation including cell block. / luisito 09/13/2022 TC:5 CPT: 90492, 33552
[2022-09-12] MEDS: Lidocaine 2% (20 ml mdv) 20 ML Vial INFILT (14:27)
--- NOTE | 2022-09-12 14:35 | RAD_ITS ---
STUDY: X-RAY CHEST REASON FOR EXAM: Male, 82 years old. Post thora TECHNIQUE: AP inspiration and expiration views. COMPARISON: Comparison is made with prior study dated September 11, 2022. FINDINGS: A tracheostomy tube is in situ. The tip is at 6.3 cm proximal to the pritesh. EKG electrodes are seen. Stable elevation of the left hemidiaphragm with residual pleural-parenchymal changes at the left lung base. No evidence of pneumothorax. Pleural parenchymal changes at the right lung base. RAD/Chest Insp/Exp 2 View IMPRESSION: Status post left thoracentesis. No evidence of pneumothorax. Residual pleural parenchymal changes at the left lung base. Electronically Signed: Gurinder De Jesus MD at 15:03 EDT ,
[2022-09-12 14:38] LABS: Cytology, Body Fluid / CSF SEE PATHOLOGY REPORT
[2022-09-12 15:03] LABS: Body Fluid Mononuclear WBC # 1.027 10^3/uL; Body Fluid Mononuclear WBC % 77.2 %; Body Fluid Polynuclear WBC # 0.303 10^3/uL; Body Fluid Polynuclear WBC % 22.8 %; Body Fluid Total Cells Counted 1.793 10^3/ul
[2022-09-12] MEDS: hydrALAZINE 20 MG/ML Vial 10 MG IV (15:15)
--- NOTE | 2022-09-12 15:15 | CASEMGMT ---
Patient's daughter Miryam called SW back. SW went over the facilities that were willing to consider patient. Miryam preferred the [facility] facilities, but was going to call her sister first. Torrie ANGELO
--- NOTE | 2022-09-12 15:34 | CASEMGMT ---
NISA received a return call from patient's daughter Miryam. Miryam said they would like [facility]. NISA let Miryam know a referral will be made. NISA asked d/c planning engineer Bhumi to please send a referral to [facility]. Torrie ANGELO
--- NOTE | 2022-09-12 15:37 | CASEMGMT ---
Discharge Planning Referral sent to [facility] via [facility]. Bhumi Thomson
[2022-09-12 15:38] LABS: LDH,Body Fluid 90 Units/l (Not Establ.); Protein, Body Fluid 1.7 g/dL (Not Establ.)
[2022-09-12 16:16] LABS: Appearance/Body Fluid CLEAR; Auto B Fluid Analyzer BKGD Ct COUNTS W/IN LIMITS (W/IN LIMITS); Color/Body Fluid YELLOW; Red Cell Count/Body Fluid 10 /mm3; Source- Body Fluid THORACENTESIS
[2022-09-12 16:17] LABS: Body Fluid QC Type(s) BF1Q; Lymphocytes 7 %; Macrophages 30 %; Monocytes 36 %; Neutrophil (Segs) 27 %
[2022-09-12] MEDS: Enoxaparin 40 MG/0.4 ML Syringe SC (21:31)
[2022-09-12] MEDS: Atorvastatin Calcium 80 MG Tablet PO (21:32)
[2022-09-13] VITALS (17 sets, daily range): BP systolic 111–193; BP diastolic 57–98; PULSE 50–63; RESP 16–24; TEMP 36.6–37.6; O2SAT 86–97; BMI 27.9
[2022-09-13] MEDS: hydrOXYzine PAM 25 MG Capsule 50 MG PO ×2 (00:48→05:52)
[2022-09-13] MEDS: Acetaminophen 325 MG Tablet 650 MG PO ×3 (00:48→17:51)
[2022-09-13] MEDS: traZODone 100 MG Tablet GT (00:48)
[2022-09-13] MEDS: guaiFENesin 10 ML UDC (200MG/10ML) PO ×4 (05:52→20:30)
[2022-09-13] MEDS: hydrALAZINE 25 MG Tablet PO ×3 (05:52→20:30)
[2022-09-13 07:05] LABS: Basophil# 0.05 X10^3/uL; Basophil% 0.6 % (0-1); Eosinophils% 2.6 % (0-5); Hematocrit 25.3 % (40-54); Hemoglobin 8.3 g/dL (13.0-16.5); Lymphocyte % 10.2 % (19-41); Mean Corp Hgb Conc 32.8 g/dL (32-36); Mean Corpuscular Hgb 32.2 pg (27.0-32.0); Mean Corpuscular Volume 98.1 fL (80-94); Mean Platelet Vol. 10.3 fl (6.2-12.0); Monocyte# 0.79 X10^3/uL; Monocyte% 10.1 % (0-10); NRBC Flagged by Analyzer 0 % (0-5); Neutrophil # 5.95 X10^3/uL (2.7-7.7); Platelet Count 329 K/mm3 (150-450); RBC Distribution Width CV 13.9 % (11.6-14.6); RBC Distribution Width SD 49.2 fl (35.1-43.9); Red Blood Count 2.58 M/mm3 (4.6-6.2); White Blood Count 7.8 K/mm3 (4.4-11.0)
[2022-09-13] MEDS: Ipratropium/Albuterol Sulfate 3 ML AMPUL.NEB INHALATION ×2 (07:20→19:44)
[2022-09-13] MEDS: Budesonide Respules 0.5 MG/2 ML AMPUL.NEB. INHALATION ×2 (07:20→19:44)
--- NOTE | 2022-09-13 07:32 | PCM.PN.HOSP ---
Reason for Visit Reason for Visit: Diagnoses Candidal stomatitis (08/30/22) Elevated white blood cell count, unspecified (08/30/22) Hypokalemia (08/30/22) Other toxic encephalopathy (08/30/22) Encephalopathy, unspecified (08/30/22) Pneumonia, unspecified organism (08/30/22) Acute respiratory failure with hypoxia (08/30/22) Respiratory failure, unspecified, unspecified whether with hypoxia or hypercapnia (08/30/22) Hemoptysis (08/30/22) Subjective Subjective Patient seen remains stable patient be assessed for possible discharge back to [facility] Objective Data Objective Data Vital Signs: Vital Signs Temp Pulse Resp BP Pulse Ox O2 Del Method O2 Flow Rate 98.1 F 55 L 24 H 172/70 H 95 Trach Collar 9 09/13/22 06:41 09/13/22 07:21 09/13/22 07:21 09/13/22 06:41 09/13/22 07:21 09/13/22 07:21 09/12/22 16:00 FiO2 35 09/13/22 07:21 Oxygen Flow Rate (L/min) 9 Oxygen Delivery Method [2] Trach Collar Oxygen Delivery Method [1 ( Trach Collar Initial Baseline)] Oxygen Delivery Method Trach Collar Weight: 93.6 kg Body Mass Index (BMI) 27.9 Intake & Output: Intake and Output for Last 24 Hours 09/11/22 09/12/22 09/13/22 23:59 23:59 23:59 Intake Total 1220 / 1220 700 / 700 120 / 120 Output Total 2100 / 2100 2465 / 2465 300 / 300 Balance -880 / -880 -1765 / -1765 -180 / -180 Lab / Micro Data Result Diagrams: 09/13/22 06:50 09/13/22 06:50 Labs: Laboratory Results - last 24 hr 09/12/22 05:56: Lactate Dehydrogenase 196 09/12/22 08:15: PT 16.1 H, INR 1.3, APTT 41.0 H 09/12/22 14:25: Fluid Total Protein 1.7, Fluid LDH 90 09/12/22 14:25: Fluid Source THORACENTESIS, Fluid Color YELLOW, Fluid Appearance CLEAR, Fluid WBC 1.330, Fluid RBC 10, Fluid Tot Cell Count 1.793, Fld Polynuclear WBCs # 0.303, Fld Polynuclear WBCs % 22.8, Fluid Mononuclear WBCs 1.027, Fld Mononuclear WBCs % 77.2, Fluid Neutrophils 27, Fluid Lymphocytes 7, Fluid Monocytes 36, Fluid Macrophages 30, Fl Pathologist Comment May follow, Fluid Comment 2 SEE COMMENT 09/13/22 06:50: WBC 7.8, RBC 2.58 L, Hgb 8.3 L, Hct 25.3 L, MCV 98.1 H D, MCH 32.2 H, MCHC 32.8 D, RDW Std Deviation 49.2 H, RDW Coeff of [place] 13.9, Plt Count 329, MPV 10.3, Immature Gran % (Auto) 0.500, Neut % (Auto) 76.0 H, Lymph % (Auto) 10.2 L, [place] % (Auto) 10.1 H, Eos % (Auto) 2.6, Baso % (Auto) 0.6, Absolute Neuts (auto) 6.0, Absolute Lymphs (auto) 0.80 L, Nucleated RBC % 0 Micro: Microbiology 09/07/22 13:15 Sputum, Induced/Lukens Gram Stain - Final 09/07/22 13:15 Sputum, Induced/Lukens Respiratory Culture - Final Culture exhibits no growth. 08/30/22 23:41 Sputum, Induced/Lukens Gram Stain - Final 08/30/22 23:41 Sputum, Induced/Lukens Respiratory Culture - Final Staphylococcus aureus 08/30/22 23:41 Mucosa - Nasopharyngeal Respiratory Panel (PCR) - Final 08/30/22 23:35 Urine Catheter - Catheter Legionella Antigen - Final 08/30/22 23:35 Urine Catheter - Catheter Streptococcus pneumoniae Antigen (M - Final Radiography Diagnostic Testing: Radiology Impression Thoracentesis Ultrasound 09/12/22 06:58 IMPRESSION: Ultrasound-guided left thoracentesis. Electronically Signed: Gurinder De Jesus MD at 15:08 EDT , Chest X-Ray 09/12/22 14:35 IMPRESSION: Status post left thoracentesis. No evidence of pneumothorax. Residual pleural parenchymal changes at the left lung base. Electronically Signed: Gurinder De Jesus MD at 15:03 EDT , Physical Exam Narrative GENERAL: cooperative HEENT: Atraumatic; normocephalic EYES; opacification of the left eye NECK; tracheostomy in place RESPIRATORY: Diminished to auscultation CARDIOVASCULAR:? Regular S1 S2, GI:? soft, normoactive bowel sounds, : No Renal angle tenderness; EXTREMITIES:?Edema of extremities MUSCULOSKELETAL:? no muscle wasting NEURO:? Awake;? no lateralizing signs. SKIN:? No Rash PSYCH; Flat? affect Assessment & Plan Assessment/Plan (1) Hemoptysis: (2) Pneumonia: (3) Acute respiratory failure with hypoxia: (4) Toxic metabolic encephalopathy: PLAN: Plan Patient is an 82-year-old gentleman with multiple comorbidities admitted with progressive shortness of breath. Diagnosed with acute respiratory failure. Patient sputum cultures grew Staph aureus 1. Acute hypoxic respiratory failure ? Secondary to MSSA pneumonia. Patient admitted to a monitored bed. Patient was placed on the vent on admission taken off and placed back on 14 123 finally weaned off to trach mask on 09/07/2019 2. Methicillin staph aureus sensitive pneumonia ? Patient has completed his antibiotic therapy 3. Hemoptysis ? Patient was on Lovenox discontinued restarted was hemoptysis resolved 4. Paroxysmal A-fib ? Rate controlled on beta-blockers patient not on systemic anticoagulation due to significant risk for falls 5.? History of laryngeal CA ? 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 History of AAA ? Status post repair in 2004 7.? COPD ? Currently not in exacerbation did continue patient bronchodilator treatment regimen 8.? Dyslipidemia -Patient is on statin therapy, continued at home dose 9.? Chronic alcohol dependence ? Patient is on phenobarb taper 10. History of gout ? Patient is on allopurinol 11. Hypertension - Blood pressure controlled, home medications continued with dose adjustment as needed 12. Physical deconditioning - Requested for PT OT eval and addiction social worker to assist with discharge planning 13. Anemia - Secondary to chronic disorder as well as acute blood loss anemia from hemoptysis, monitoring H&H and transfuse if patient becomes symptomatic or hemoglobin falls below 7 14. Acute kidney injury ? Creatinine on 09/03/2022 was 1.43 kidney function back to baseline at 0.88 15. DVT prophylaxis - On enoxaparin Time spent in the patient's overall evaluation,decision-making process, review of diagnostic data, adjustment of management, discussion with other providers, nursing nursing and ancillary staff involved in patient's care documentation, 45 Minutes Charges/Coding Visit Charges Inpatient E&M: 10055 Subs Hosp L2
[2022-09-13 07:37] LABS: Anion Gap 5 (5-15); BUN 35 mg/dL (7-18); BUN/Creat Ratio 42.3 RATIO (10-20); Calcium,Total 8.6 mg/dL (8.5-10.1); Chloride 105 mmol/L (98-107); Creatinine, Serum 0.83 mg/dL (0.70-1.30); EST Glomerular Filtration Rate 94 mL/min (>60); Est Glom Filt Rate - Afr Amer 114 mL/min (>60); Estimated Creatinine Clearance 72.72 ml/min; Glucose 90 mg/dL (74-106); Magnesium 2.3 mg/dL (1.6-2.6); Phosphorus 3.4 mg/dL (2.5-4.9); Potassium 3.8 mmol/L (3.5-5.1); Sodium Level 138 mmol/L (136-145)
--- NOTE | 2022-09-13 08:40 | CASEMGMT ---
NISA called Sosa with [facility] per her request. NISA answered Sosa's questions regarding patient. They will not be able to provide alcohol to patient as was done at previous facility. [facility] can take patient as long as he has Medicare days which she will verify. Torrie Aguiar JEWELRY REPAIRER GI
--- NOTE | 2022-09-13 09:28 | CASEMGMT ---
Discharge Planning Patient has been accepted by [facility]. Bhumi Thomson
--- NOTE | 2022-09-13 09:48 | CASEMGMT ---
NISA spoke with patient's daughter Miryam. NISA let Miryam know that [facility] accepted patient and he will go today. Miryam said her daughter told her [facility] and she read reviews and they were not good. NISA named the other facilities that were willing to look at patient. NISA also told Miryam that if she is unhappy with his care she can ask them to help her move him. Miryam said to just send him to [facility]. Plan: [facility] [place]. Torrie ANGELO
--- NOTE | 2022-09-13 09:53 | WOUNDNOTE ---
wound photo: right foot
--- NOTE | 2022-09-13 09:54 | WOUNDNOTE ---
wound photo: left 3rd toe
--- NOTE | 2022-09-13 09:54 | WOUNDNOTE ---
wound photo: buttocks
--- NOTE | 2022-09-13 10:41 | PCM.TXEXTCAR ---
Diet Diet Order/Speech Therapy: 09/07/22 11:07 Diet: Regular - General Food consistency:: Pureed Liquid Consistency:: Regular/Thin Type of Dietary Supplement:: EP tid and 4 oz EPHP tid Is pt able to select menu?: No Diet Comments: MOIST puree, TOTAL FEED IF FULLY ALERT, liquids by straw, alt bites/sip 1:1 Wound(s) Right Foot: Wound Type: dry callous to the right ball of foot Left 2nd and 3rd toe: Wound Type: small scab to L 3rd toe Left Inner Forearm: Wound Type: Skin Tear Coccyx: Wound Type: Pressure Injury Dressing Change: Mepilex Left Outer Ankle: Wound Type: Pressure Injury Left Upper Forearm: Wound Type: Skin Tear right inner arm: Wound Type: Skin Tear rt knee: Wound Type: Abrasion LEFT UPPER BACK S/P THORACENTESIS: Wound Type: Puncture Therapies Physical Therapy: Eval and Treat Occupational Therapy: Eval and Treat Speech Therapy: Eval and Treat Problem/Diagnosis (1) Hemoptysis: Status: Acute Code(s): R04.2 - Hemoptysis (2) Pneumonia: Status: Acute Code(s): J18.9 - Pneumonia, unspecified organism (3) Acute respiratory failure with hypoxia: Status: Acute Code(s): J96.01 - Acute respiratory failure with hypoxia (4) Toxic metabolic encephalopathy: Status: Acute Code(s): G92.8 - Other toxic encephalopathy Plan Patient is an 82-year-old gentleman with multiple comorbidities admitted with progressive shortness of breath. Diagnosed with acute respiratory failure. Patient sputum cultures grew Staph aureus 1. Acute hypoxic respiratory failure ? Secondary to MSSA pneumonia. Patient admitted to a monitored bed. Patient was placed on the vent on admission taken off and placed back on 14 123 finally weaned off to trach mask on 09/07/2019 2. Methicillin staph aureus sensitive pneumonia ? Patient has completed his antibiotic therapy 3. Hemoptysis ? Patient was on Lovenox discontinued restarted was hemoptysis resolved 4. Paroxysmal A-fib ? Rate controlled on beta-blockers patient not on systemic anticoagulation due to significant risk for falls 5.? History of laryngeal CA ? 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 History of AAA ? Status post repair in 2004 7.? COPD ? Currently not in exacerbation did continue patient bronchodilator treatment regimen 8.? Dyslipidemia -Patient is on statin therapy, continued at home dose 9.? Chronic alcohol dependence ? Patient is on phenobarb taper 10. History of gout ? Patient is on allopurinol 11. Hypertension - Blood pressure controlled, home medications continued with dose adjustment as needed 12. Physical deconditioning - Requested for PT OT eval and social media analyst to assist with discharge planning 13. Anemia - Secondary to chronic disorder as well as acute blood loss anemia from hemoptysis, monitoring H&H and transfuse if patient becomes symptomatic or hemoglobin falls below 7 14. Acute kidney injury ? Creatinine on 09/03/2022 was 1.43 kidney function back to baseline at 0.88 15. DVT prophylaxis - On enoxaparin Time spent in the patient's overall evaluation,decision-making process, review of diagnostic data, adjustment of management, discussion with other providers, nursing nursing and ancillary staff involved in patient's care documentation, 45 Minutes Allergies/Procedures Done in Hospital Allergies iodine Allergy (Intermediate, Verified 08/18/22 19:30) Unknown tremors Type of Care/Length of Stay Estimated LOS: More Than 30 Days Type of Care Needed: Intermediate Rehab Potential: Fair Prognosis: Fair Additional Orders/Day of Discharge Day of Discharge: 09/13/22 Dietary and Speech Recommendations Dietitian Recommendations/Changes: Continue regular diet- texture/consistency per EMERGENCY ROOM DOCTOR w/ ensure pudding TID; Continue to provide 4 oz ensure plus high protein 3x/day w/ meals for increased nutrition if consumed; Continue po Lance BID Will monitor PO intake and provide additional ONS as indicated. Discharge Plan Admission Admit Date/Time: 08/30/22 22:30 Attending Provider: Jimmy Medina Primary Care Provider: Maninder Malcolm Consulting Providers: Florence Sellers ; Vinicio Slater ; Ludy Andrade ; Galo Kelley ; Pascual Calderon Instructions Patient Instructions: RAD RN Thoracentesis Dc Discharge Orders/Prescriptions Prescriptions: New nystatin 100,000 unit/mL Suspension 500,000 unit PO 4X/DAY 7 Days Qty: 0 0RF ipratropium-albuterol 0.5 mg-3 mg(2.5 mg base)/3 mL Solution For Nebulization 3 ml inhalation Q6HWA.RT Qty: 0 0RF albuterol sulfate 2.5 mg /3 mL (0.083 %) Solution For Nebulization 2.5 mg inhalation Q2H PRN PRN (Reason: Dyspnea, wheezing) Qty: 0 0RF loperamide 2 mg Capsule 2 mg PO Q4H PRN PRN (Reason: LOOSE STOOLS) Qty: 0 0RF sennosides-docusate sodium [Stool Softener-Stimulant Laxat] 8.6-50 mg Tablet 2 tab PO DAILY Qty: 0 0RF guaifenesin 100 mg/5 mL Liquid 10 ml PO Q6 Qty: 0 0RF famotidine 20 mg Tablet 20 mg PO BID Qty: 0 0RF trazodone 100 mg Tablet 100 mg PO QHS PRN PRN (Reason: Insomnia) Qty: 0 0RF budesonide 0.5 mg/2 mL Suspension For Nebulization 0.5 mg inhalation BID.RT Qty: 0 0RF nystatin [Nyamyc] 100,000 unit/gram Powder 1 applic topical BID Qty: 0 0RF Protocol: *Topical Application Instructions APPLICATION INSTRUCTIONS: scrotum and groin alum-mag hydroxide-simeth [Mag-Al Plus Extra Strength] 400-400-40 mg/5 mL Suspension 30 ml PO Q6H PRN PRN (Reason: Gastric Burning) Qty: 0 0RF Lance (with collagen) 7-7-1.5 gram Powder In Packet 1 packet PO BIDCM Qty: 0 0RF Continued atorvastatin 80 mg tablet 80 mg PO QHS Label Comments: TAKE 1 TABLET BY MOUTH EVERY DAY albuterol sulfate 18 GM HFA aerosol inhaler 2 puff inhalation Q4H PRN (Reason: Sob &/Or Wheezing) Label Comments: COPD losartan 50 MG tablet 50 mg PO BID Qty: 60 0RF hydralazine 25 MG tablet 25 mg PO TID Qty: 90 0RF amlodipine 10 MG tablet 10 mg PO DAILY Qty: 30 0RF furosemide 40 MG tablet 40 mg PO DAILY Qty: 30 0RF menthol-zinc oxide 1 APPLIC ointment 1 applic topical TID Protocol: *Topical Application Instructions APPLICATION INSTRUCTIONS: Apply to affected area of buttocks docusate sodium [Colace] 100 mg capsule 100 mg PO BID Qty: 20 0RF polyethylene glycol 3350 [Miralax] 17 gram powder in packet 17 g PO DAILY Qty: 100 1RF multivitamin Tablet 1 tab PO DAILY bupropion HCl 75 mg tablet 75 mg PO BID Label Comments: TAKE 1 TABLET BY MOUTH TWICE A DAY loperamide 2 mg Capsule 2 mg PO Q4H PRN PRN (Reason: LOOSE STOOLS) Qty: 0 0RF thiamine HCl (vitamin B1) [Vitamin B-1] 100 mg Tablet 100 mg PO DAILYCM Qty: 0 0RF carvedilol 3.125 mg Tablet 3.125 mg PO BIDCM Qty: 0 0RF pantoprazole 40 mg Tablet,Delayed Release (Dr/Ec) 40 mg PO DAILY Qty: 0 0RF budesonide 0.5 mg/2 mL Suspension For Nebulization 0.5 mg inhalation BID.RT Qty: 0 0RF folic acid 1 mg Tablet 1 mg PO DAILY@0800 Qty: 0 0RF dicyclomine 10 mg Capsule 20 mg PO Q6H PRN PRN (Reason: abdominal discomfort) Qty: 0 0RF alum-mag hydroxide-simeth [Mag-Al Plus Extra Strength] 400-400-40 mg/5 mL Suspension 30 ml PO Q6H PRN PRN (Reason: Gastric Burning) Qty: 0 0RF hydroxyzine pamoate 25 mg Capsule 50 mg PO Q4H PRN PRN (Reason: mild anxiety) Qty: 0 0RF Healthy Eyes 300 mcg-200 mg-27 mg-2 mg Tablet 1 cap PO BID Qty: 0 0RF menthol-zinc oxide [Calmoseptine] 0.44-20.6 % Ointment 1 applic topical BID Qty: 0 0RF Protocol: *Topical Application Instructions APPLICATION INSTRUCTIONS: BUTTOCKS allopurinol 100 mg tablet 100 mg PO DAILY Qty: 1 0RF tamsulosin 0.4 mg Capsule 0.4 mg PO DAILY Qty: 0 0RF Discontinued acetaminophen 325 mg Tablet 650 mg PO Q4H PRN PRN (Reason: Fever, pain 1-02/21) Qty: 0 0RF indomethacin 25 mg Capsule 25 mg PO TIDCM Qty: 0 0RF Referrals / Follow Up: Maninder Malcolm PA [Primary Care Provider] - Within 1 Week Disposition Disposition (needs filled in before D/C Order can be placed): Nursing Home Facility
--- NOTE | 2022-09-13 10:44 | PCM.DC.SUM ---
Providers Date of Admission: 08/30/22 Date of Discharge: 09/13/22 Primary Care Physician: RONNI Linton Consultations 08/30/22 22:25 Consult: Produce Field Merchandiser / Pulmonary Medicine Routine Consulting Provider: Galo Kelley Reason for Consult: Vent management EMERGENT Consult: No MD Notified: Yes Date Notified: 08/30/22 Time Notified: 22:25 Method of Notification: Text 09/12/22 08:52 Consult: Onc/Wound/unemployment specialist Routine Comment: Reason For Visit: RESP FAILURE, BL PNA Diagnosis Discharge Diagnosis (1) Hemoptysis: Status: Acute Code(s): R04.2 - Hemoptysis (2) Pneumonia: Status: Acute Code(s): J18.9 - Pneumonia, unspecified organism (3) Acute respiratory failure with hypoxia: Status: Acute Code(s): J96.01 - Acute respiratory failure with hypoxia (4) Toxic metabolic encephalopathy: Status: Acute Code(s): G92.8 - Other toxic encephalopathy Plan Patient is an 82-year-old gentleman with multiple comorbidities admitted with progressive shortness of breath. Diagnosed with acute respiratory failure. Patient sputum cultures grew Staph aureus 1. Acute hypoxic respiratory failure ? Secondary to MSSA pneumonia. Patient admitted to a monitored bed. Patient was placed on the vent on admission taken off and placed back on 14 123 finally weaned off to trach mask on 09/07/2019 2. Methicillin staph aureus sensitive pneumonia ? Patient has completed his antibiotic therapy 3. Hemoptysis ? Patient was on Lovenox discontinued restarted was hemoptysis resolved 4. Paroxysmal A-fib ? Rate controlled on beta-blockers patient not on systemic anticoagulation due to significant risk for falls 5.? History of laryngeal CA ? 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 History of AAA ? Status post repair in 2004 7.? COPD ? Currently not in exacerbation did continue patient bronchodilator treatment regimen 8.? Dyslipidemia -Patient is on statin therapy, continued at home dose 9.? Chronic alcohol dependence ? Patient is on phenobarb taper 10. History of gout ? Patient is on allopurinol 11. Hypertension - Blood pressure controlled, home medications continued with dose adjustment as needed 12. Physical deconditioning - Requested for PT OT eval and dialysis social worker to assist with discharge planning 13. Anemia - Secondary to chronic disorder as well as acute blood loss anemia from hemoptysis, monitoring H&H and transfuse if patient becomes symptomatic or hemoglobin falls below 7 14. Acute kidney injury ? Creatinine on 09/03/2022 was 1.43 kidney function back to baseline at 0.88 15. DVT prophylaxis - On enoxaparin Time spent in the patient's overall evaluation,decision-making process, review of diagnostic data, adjustment of management, discussion with other providers, nursing nursing and ancillary staff involved in patient's care documentation, 45 Minutes Medications at Discharge Home Medications albuterol sulfate 90 mcg/actuation aerosol inhaler 2 puff inhalation Q4H PRN Sob &/Or Wheezing 08/18/16 atorvastatin 80 mg tablet 80 mg PO QHS heart 11/27/19 losartan 50 mg tablet 50 mg PO BID #60 tabs 12/01/19 amlodipine 10 mg tablet 10 mg PO DAILY #30 tabs 12/08/19 furosemide 40 mg tablet 40 mg PO DAILY #30 tabs 12/08/19 hydralazine 25 mg tablet 25 mg PO TID #90 tabs 12/08/19 menthol 0.44 %-zinc oxide 20.6 % topical ointment 1 applic topical TID redness 12/08/19 docusate sodium 100 mg capsule (Colace) 100 mg PO BID #20 caps 06/26/22 polyethylene glycol 3350 17 gram oral powder packet (Miralax) 17 g PO DAILY #100 ea 06/29/22 bupropion HCl 75 mg tablet 75 mg PO BID DEPRESSION 08/18/22 multivitamin 1 tab PO DAILY REPLACEMENT 08/18/22 allopurinol 100 mg tablet 100 mg PO DAILY #1 TAB 08/19/22 aluminum-mag hydroxide-simethicone 400 mg-400 mg-40 mg/5 mL oral susp (Mag-Al Plus Extra Strength) 30 ml PO Q6H PRN PRN Gastric Burning #0 mL 08/19/22 budesonide 0.5 mg/2 mL suspension for nebulization 0.5 mg (2 mL) inhalation BID.RT #0 mL 08/19/22 carvedilol 3.125 mg tablet 3.125 mg PO BIDCM #0 tabs 08/19/22 dicyclomine 10 mg capsule 20 mg PO Q6H PRN PRN abdominal discomfort #0 caps 08/19/22 folic acid 1 mg tablet 1 mg PO DAILY@0800 #0 tabs 08/19/22 hydroxyzine pamoate 25 mg capsule 50 mg PO Q4H PRN PRN mild anxiety #0 caps 08/19/22 loperamide 2 mg capsule 2 mg PO Q4H PRN PRN LOOSE STOOLS #0 caps 08/19/22 menthol 0.44 %-zinc oxide 20.6 % topical ointment (Calmoseptine) 1 applic topical BID #0 grams 08/19/22 pantoprazole 40 mg tablet,delayed release 40 mg PO DAILY #0 tabs 08/19/22 thiamine HCl (vitamin B1) 100 mg tablet (Vitamin B-1) 100 mg PO DAILYCM #0 tabs 08/19/22 vit A 300 mcg-C 200 mg-E 27 mg-lutein 2 mg and minerals tablet (Healthy Eyes) 1 cap PO BID #0 tabs 08/19/22 tamsulosin 0.4 mg capsule 0.4 mg PO DAILY #0 caps 08/22/22 albuterol sulfate 2.5 mg/3 mL (0.083 %) solution for nebulization 2.5 mg (3 mL) inhalation Q2H PRN PRN Dyspnea, wheezing #0 mL 09/13/22 aluminum-mag hydroxide-simethicone 400 mg-400 mg-40 mg/5 mL oral susp (Mag-Al Plus Extra Strength) 30 ml PO Q6H PRN PRN Gastric Burning #0 mL 09/13/22 arginine 7 gram-glutam 7 gram-CaHMB 1.5 [id number]-mf-min oral pwd pkt (Lance (with collagen)) 1 packet PO BIDCM #0 ea 09/13/22 budesonide 0.5 mg/2 mL suspension for nebulization 0.5 mg (2 mL) inhalation BID.RT #0 mL 09/13/22 famotidine 20 mg tablet 20 mg PO BID #0 tabs 09/13/22 guaifenesin 100 mg/5 mL oral liquid 10 ml PO Q6 #0 mL 09/13/22 ipratropium 0.5 mg-albuterol 3 mg (2.5 mg base)/3 mL nebulization soln 3 ml inhalation Q6HWA.RT #0 mL 09/13/22 loperamide 2 mg capsule 2 mg PO Q4H PRN PRN LOOSE STOOLS #0 caps 09/13/22 nystatin 100,000 unit/gram topical powder (Nyamyc) 1 applic topical BID #0 grams 09/13/22 nystatin 100,000 unit/mL oral suspension 500,000 unit (5 mL) PO 4X/DAY 7 days #0 mL 09/13/22 sennosides 8.6 mg-docusate sodium 50 mg tablet (Stool Softener-Stimulant Laxative) 2 tab PO DAILY #0 tabs 09/13/22 trazodone 100 mg tablet 100 mg PO QHS PRN PRN Insomnia #0 tabs 09/13/22 Hospital Course Summary of Care Provided Minutes Spent on Discharge: 45 Physical Exam Narrative GENERAL: cooperative HEENT: Atraumatic; normocephalic EYES; opacification of the left eye NECK; tracheostomy in place RESPIRATORY: Diminished to auscultation CARDIOVASCULAR:? Regular S1 S2, GI:? soft, normoactive bowel sounds, : No Renal angle tenderness; EXTREMITIES:?Edema of extremities MUSCULOSKELETAL:? no muscle wasting NEURO:? Awake;? no lateralizing signs. SKIN:? No Rash PSYCH; Flat? affect Weight / BMI Weight Weight: 93.6 kg Body Mass Index (BMI) 27.9 ABG / Lab / Microbiology Data Result Diagrams: 09/13/22 06:50 09/13/22 06:50 Laboratory: Laboratory Results - last 24 hr 09/12/22 14:25: Fluid Total Protein 1.7, Fluid LDH 90 09/12/22 14:25: Fluid Source THORACENTESIS, Fluid Color YELLOW, Fluid Appearance CLEAR, Fluid WBC 1.330, Fluid RBC 10, Fluid Tot Cell Count 1.793, Fld Polynuclear WBCs # 0.303, Fld Polynuclear WBCs % 22.8, Fluid Mononuclear WBCs 1.027, Fld Mononuclear WBCs % 77.2, Fluid Neutrophils 27, Fluid Lymphocytes 7, Fluid Monocytes 36, Fluid Macrophages 30, Fl Pathologist Comment May follow, Fluid Comment 2 SEE COMMENT 09/13/22 06:50: WBC 7.8, RBC 2.58 L, Hgb 8.3 L, Hct 25.3 L, MCV 98.1 H D, MCH 32.2 H, MCHC 32.8 D, RDW Std Deviation 49.2 H, RDW Coeff of [place] 13.9, Plt Count 329, MPV 10.3, Immature Gran % (Auto) 0.500, Neut % (Auto) 76.0 H, Lymph % (Auto) 10.2 L, [place] % (Auto) 10.1 H, Eos % (Auto) 2.6, Baso % (Auto) 0.6, Absolute Neuts (auto) 6.0, Absolute Lymphs (auto) 0.80 L, Nucleated RBC % 0 09/13/22 06:50: Sodium 138, Potassium 3.8, Chloride 105, Carbon Dioxide 28.0, Anion Gap 5, BUN 35 H, Creatinine 0.83, Estim Creat Clear Calc 72.72, Est GFR (MDRD) Af Amer 114, Est GFR (MDRD) Non-Af 94, BUN/Creatinine Ratio 42.3 H, Glucose 90, Calcium 8.6, Phosphorus 3.4, Magnesium 2.3 Microbiology: Microbiology 09/12/22 14:25 Fluid - Thoracentesis Fluid Body Fluid Culture - Preliminary No growth-Final to follow 09/07/22 13:15 Sputum, Induced/[place]ukens Gram Stain - Final 09/07/22 13:15 Sputum, Induced/Lukens Respiratory Culture - Final Culture exhibits no growth. 08/30/22 23:41 Sputum, Induced/Lukens Gram Stain - Final 08/30/22 23:41 Sputum, Induced/Lukens Respiratory Culture - Final Staphylococcus aureus 08/30/22 23:41 Mucosa - Nasopharyngeal Respiratory Panel (PCR) - Final 08/30/22 23:35 Urine Catheter - Catheter Legionella Antigen - Final 08/30/22 23:35 Urine Catheter - Catheter Streptococcus pneumoniae Antigen (M - Final Radiography Diagnostic Testing: Radiology Impression Thoracentesis Ultrasound 09/12/22 06:58 IMPRESSION: Ultrasound-guided left thoracentesis. Electronically Signed: Gurinder De Jesus MD at 15:08 EDT , Chest X-Ray 09/12/22 14:35 IMPRESSION: Status post left thoracentesis. No evidence of pneumothorax. Residual pleural parenchymal changes at the left lung base. Electronically Signed: Gurinder De Jesus MD at 15:03 EDT , D/C Instructions Discharge Diet: No restrictions Discharge Activity: Return to Normal Activity Call your doctor if you observe: Fever of 101 or Higher, Shortness of breath, Fainting spells and Chest pain Meaningful Use Info Meaningful Use Diagnoses (Choose all that apply): None applicable Discharge Plan Admission Admit Date/Time: 08/30/22 22:30 Attending Provider: Jimmy Medina Primary Care Provider: Maninder Malcolm Consulting Providers: Florence Sellers ; Vinicio Slater ; Ludy Andrade ; Galo Kelley ; Pascual Calderon Instructions Patient Instructions: JENNIFER RN Thoracentesis Dc Discharge Orders/Prescriptions Prescriptions: New nystatin 100,000 unit/mL Suspension 500,000 unit PO 4X/DAY 7 Days Qty: 0 0RF ipratropium-albuterol 0.5 mg-3 mg(2.5 mg base)/3 mL Solution For Nebulization 3 ml inhalation Q6HWA.RT Qty: 0 0RF albuterol sulfate 2.5 mg /3 mL (0.083 %) Solution For Nebulization 2.5 mg inhalation Q2H PRN PRN (Reason: Dyspnea, wheezing) Qty: 0 0RF loperamide 2 mg Capsule 2 mg PO Q4H PRN PRN (Reason: LOOSE STOOLS) Qty: 0 0RF sennosides-docusate sodium [Stool Softener-Stimulant Laxat] 8.6-50 mg Tablet 2 tab PO DAILY Qty: 0 0RF guaifenesin 100 mg/5 mL Liquid 10 ml PO Q6 Qty: 0 0RF famotidine 20 mg Tablet 20 mg PO BID Qty: 0 0RF trazodone 100 mg Tablet 100 mg PO QHS PRN PRN (Reason: Insomnia) Qty: 0 0RF budesonide 0.5 mg/2 mL Suspension For Nebulization 0.5 mg inhalation BID.RT Qty: 0 0RF nystatin [Nyamyc] 100,000 unit/gram Powder 1 applic topical BID Qty: 0 0RF Protocol: *Topical Application Instructions APPLICATION INSTRUCTIONS: scrotum and groin alum-mag hydroxide-simeth [Mag-Al Plus Extra Strength] 400-400-40 mg/5 mL Suspension 30 ml PO Q6H PRN PRN (Reason: Gastric Burning) Qty: 0 0RF Lance (with collagen) 7-7-1.5 gram Powder In Packet 1 packet PO BIDCM Qty: 0 0RF Continued atorvastatin 80 mg tablet 80 mg PO QHS Label Comments: TAKE 1 TABLET BY MOUTH EVERY DAY albuterol sulfate 18 GM HFA aerosol inhaler 2 puff inhalation Q4H PRN (Reason: Sob &/Or Wheezing) Label Comments: COPD losartan 50 MG tablet 50 mg PO BID Qty: 60 0RF hydralazine 25 MG tablet 25 mg PO TID Qty: 90 0RF amlodipine 10 MG tablet 10 mg PO DAILY Qty: 30 0RF furosemide 40 MG tablet 40 mg PO DAILY Qty: 30 0RF menthol-zinc oxide 1 APPLIC ointment 1 applic topical TID Protocol: *Topical Application Instructions APPLICATION INSTRUCTIONS: Apply to affected area of buttocks docusate sodium [Colace] 100 mg capsule 100 mg PO BID Qty: 20 0RF polyethylene glycol 3350 [Miralax] 17 gram powder in packet 17 g PO DAILY Qty: 100 1RF multivitamin Tablet 1 tab PO DAILY bupropion HCl 75 mg tablet 75 mg PO BID Label Comments: TAKE 1 TABLET BY MOUTH TWICE A DAY loperamide 2 mg Capsule 2 mg PO Q4H PRN PRN (Reason: LOOSE STOOLS) Qty: 0 0RF thiamine HCl (vitamin B1) [Vitamin B-1] 100 mg Tablet 100 mg PO DAILYCM Qty: 0 0RF carvedilol 3.125 mg Tablet 3.125 mg PO BIDCM Qty: 0 0RF pantoprazole 40 mg Tablet,Delayed Release (Dr/Ec) 40 mg PO DAILY Qty: 0 0RF budesonide 0.5 mg/2 mL Suspension For Nebulization 0.5 mg inhalation BID.RT Qty: 0 0RF folic acid 1 mg Tablet 1 mg PO DAILY@0800 Qty: 0 0RF dicyclomine 10 mg Capsule 20 mg PO Q6H PRN PRN (Reason: abdominal discomfort) Qty: 0 0RF alum-mag hydroxide-simeth [Mag-Al Plus Extra Strength] 400-400-40 mg/5 mL Suspension 30 ml PO Q6H PRN PRN (Reason: Gastric Burning) Qty: 0 0RF hydroxyzine pamoate 25 mg Capsule 50 mg PO Q4H PRN PRN (Reason: mild anxiety) Qty: 0 0RF Healthy Eyes 300 mcg-200 mg-27 mg-2 mg Tablet 1 cap PO BID Qty: 0 0RF menthol-zinc oxide [Calmoseptine] 0.44-20.6 % Ointment 1 applic topical BID Qty: 0 0RF Protocol: *Topical Application Instructions APPLICATION INSTRUCTIONS: BUTTOCKS allopurinol 100 mg tablet 100 mg PO DAILY Qty: 1 0RF tamsulosin 0.4 mg Capsule 0.4 mg PO DAILY Qty: 0 0RF Discontinued acetaminophen 325 mg Tablet 650 mg PO Q4H PRN PRN (Reason: Fever, pain 1-02/21) Qty: 0 0RF indomethacin 25 mg Capsule 25 mg PO TIDCM Qty: 0 0RF Referrals / Follow Up: Mnainder Malcolm PA [Primary Care Provider] - Within 1 Week Disposition Disposition (needs filled in before D/C Order can be placed): Long-Term Facility Charges/Coding Visit Charges Inpatient E&M: 02597 Disch Hosp >30min
[2022-09-13] MEDS: Juven (unflavored) Packet 1 PACKET PO ×2 (11:12→17:46)
[2022-09-13] MEDS: NYSTATIN 500,000 UNIT/5 ML UDC 500000 UNIT PO ×4 (11:13→20:32)
[2022-09-13] MEDS: Furosemide 40 MG Tablet PO (11:13)
[2022-09-13] MEDS: Senna/Docusate Sodium 1 Tablet 2 TABLET PO (11:13)
[2022-09-13] MEDS: Famotidine 20 MG Tablet PO ×2 (11:13→20:33)
[2022-09-13] MEDS: amLODIPine 10 MG Tablet PO (11:13)
[2022-09-13] MEDS: Losartan Potassium 50 MG Tablet PO ×2 (11:13→20:33)
[2022-09-13] MEDS: buPROPion 75 MG Tablet PO ×2 (11:13→20:33)
[2022-09-13] MEDS: Polyethylene Glycol 3350 17 GM PACKET PO (11:13)
[2022-09-13] MEDS: Allopurinol 100 MG Tablet PO (11:13)
[2022-09-13] MEDS: Nystatin Powder 15gm Bottle 1 APPLIC TOPICAL ×2 (11:14→20:31)
[2022-09-13 12:54] LABS: Pathologist Comment/Body Fluid Reviewed
--- NOTE | 2022-09-13 14:37 | CASEMGMT ---
Orders and COVID test were sent to [facility] via [facility]. SW called [facility] and arranged for patient to get picked up at 4p via cot. SW notified RN, racing secretary and handicapper, and Sosa at [facility] via [facility]. Plan: d/c to [facility] at [facility] under skilled level of care. [facility] transported via cot. Torrie ANGELO
[2022-09-13] MEDS: cloNIDine HCl 0.2 MG Tablet PO (17:45)
[2022-09-13] MEDS: Enoxaparin 40 MG/0.4 ML Syringe SC (20:30)
[2022-09-13] MEDS: Menthol/Lanolin/Calamine/Znox 113 GM Tube 1 APPLIC TOPICAL (20:31)
[2022-09-13] MEDS: Atorvastatin Calcium 80 MG Tablet PO (20:32)
--- NOTE | 2022-09-13 21:30 | NURSING ---
RAMAN. pt via cot with EMS to exit with belongings, Report called to Марина at [facility] [place], questions answered at this time.
== END 2022-09-13 21:34 | disposition skilled nursing facility (03) | DRG 207 ==
LOC: ICU 09-07 07:02 → PCU 09-10 18:18
PROVIDERS: Family Medicine; Hospitalist; Internal Medicine; Internal Medicine Critical Care Medicine; Admitting Provider Family Medicine; PCP Physician Assistant; Visit Provider Internal Medicine
DX: J15.211 Pneumonia due to Methicillin susceptible Staphylococcus aureus (principal); G92.8 Other toxic encephalopathy; J96.01 Acute respiratory failure with hypoxia; B37.0 Candidal stomatitis; I13.0 Hypertensive heart and chronic kidney disease with heart failure and stage 1 through stage 4 chronic kidney disease, or unspecified chronic kidney disease; N17.9 Acute kidney failure, unspecified; I50.32 Chronic diastolic (congestive) heart failure; J90 Pleural effusion, not elsewhere classified; J44.0 Chronic obstructive pulmonary disease with (acute) lower respiratory infection; F10.239 Alcohol dependence with withdrawal, unspecified; R04.2 Hemoptysis; D63.1 Anemia in chronic kidney disease; E83.39 Other disorders of phosphorus metabolism; I48.0 Paroxysmal atrial fibrillation; Z93.0 Tracheostomy status; N18.31 Chronic kidney disease, stage 3a; M10.061 Idiopathic gout, right knee; E78.5 Hyperlipidemia, unspecified; I25.10 Atherosclerotic heart disease of native coronary artery without angina pectoris; E87.6 Hypokalemia; F41.9 Anxiety disorder, unspecified; I25.2 Old myocardial infarction; F32.A Depression, unspecified; N40.0 Benign prostatic hyperplasia without lower urinary tract symptoms; R53.81 Other malaise; R29.6 Repeated falls; Y90.9 Presence of alcohol in blood, level not specified; Z90.02 Acquired absence of larynx; Z79.51 Long term (current) use of inhaled steroids; Z79.82 Long term (current) use of aspirin; Z79.899 Other long term (current) drug therapy; Z85.21 Personal history of malignant neoplasm of larynx; Z92.3 Personal history of irradiation; Z86.79 Personal history of other diseases of the circulatory system; Z86.73 Personal history of transient ischemic attack (TIA), and cerebral infarction without residual deficits; Z87.891 Personal history of nicotine dependence
CPT/HCPCS: 31720; 32555; 36415; 36600; 51702; 71045; 71046; 74018; 80048; 80053; 80202; 82550; 82803; 82962; 83615; 83735; 83880; 84100; 84145; 84157; 84478; 84484; 85025; 85610; 85730; 87070; 87075; 87077; 87186; 87205; 87426; 87449; 87633; 87641; 88108; 88305; 88313; 89050; 92507; 92523; 92526; 92610; 94002; 94003; 94640; 94660; 94667; 94668; 94762; 97110; 97162; 97166; 97530; 97535; 97802; 97803; J7030; J7040; J7050; A4216; J2405; J3010

== ENCOUNTER 2022-09-17 07:36 | Emergency (ER) | payer MEDICARE, BC, SELFPAY ==
[2022-09-17] VITALS (11 sets, daily range): BP systolic 122–175; BP diastolic 62–112; PULSE 62–94; RESP 16–97; TEMP 35.9–36.6; O2SAT 15–99; BMI 27.6
--- NOTE | 2022-09-17 07:48 | RAD_ITS ---
INDICATION: Dyspnea EXAMINATION/TECHNIQUE: X-RAY - XR Chest 1 View COMPARISON: September 12, 2022 FINDINGS: LINES/DEVICES: There is a stable tracheostomy in place.. LUNGS: There are stable bilateral pleural effusions. MEDIASTINUM AND CARDIOVASCULAR STRUCTURES: There is stable cardiomegaly.. Central airways and mediastinal contour are unremarkable. BONES AND SOFT TISSUES: Unremarkable. RAD/Chest 1 View (Portable) IMPRESSION: Stable bilateral pleural effusions, cannot exclude associated bibasilar consolidation. Stable cardiomegaly. Electronically Signed: Mikaela Byrd MD at 8:37 EDT ,
--- NOTE | 2022-09-17 07:49 | EKG12_ITS ---
Test Reason : SHORT OF BREATH Blood Pressure : / mmHG Vent. Rate : 072 BPM Atrial Rate : 000 BPM P-R Int : 000 ms QRS Dur : 092 ms QT Int : 410 ms P-R-T Axes : 000 -08 067 degrees QTc Int : 448 ms Atrial fibrillation Low voltage QRS Abnormal ECG When compared with ECG of 18-AUG-2022 15:10, No significant change was found Confirmed by MAIKOL DIETZ, CALEB ([id number]), makeup editor TATYANA SANCHEZ ([id number]) on 09/20/2022 1:30:37 PM Referred By: MOISÉS Confirmed By:NORRIS LASSITER MD
--- NOTE | 2022-09-17 07:50 | ED.VIS.DYS ---
HPI History of Present Illness Chief Complaint: Shortness of Breath Informant: SNF Onset/Context/Timing Onset: Today Context: sudden Timing: Continuous Narrative Narrative: Patient presents with shortness of breath that began today. residential staff reports that the patient has tracheostomy tube fell out this morning. residential staff was able to replace it. Staff reports patient is still having some shortness of breath. Patient is nonverbal and is a poor informant. [facility] Medical History Abdominal aortic aneurysm (AAA) Acute on chronic diastolic (congestive) heart failure (12/06/19) Alcohol abuse Alcohol dependence Anxiety and depression Watkins's cyst of knee Bilateral carotid artery stenosis BPH (benign prostatic hyperplasia) Carotid artery bruit Chest pain Chronic atrial fibrillation Chronic right shoulder pain Claudication COPD (chronic obstructive pulmonary disease) Cough Dehydration DVT (deep venous thrombosis) Erectile dysfunction Essential hypertension Former smoker Frequent falls Gout History of laryngeal cancer History of left heart catheterization (05/2004) History of myocardial infarction History of nephrolithiasis HLD (hyperlipidemia) Hyperkalemia Hypertension Hypertensive emergency (12/06/19) Hypomagnesemia Hyponatremia Insomnia MSSA (methicillin susceptible Staphylococcus aureus) infection Near syncope Nonobstructive atherosclerosis of coronary artery Panlobular emphysema Peripheral vascular occlusive disease Rheumatoid arthritis Secondary pulmonary arterial hypertension SOB (shortness of breath) Stroke/cerebrovascular accident Thrombocytopenia TIA (transient ischemic attack) Vitreous hemorrhage of right eye Home Medications albuterol sulfate 90 mcg/actuation aerosol inhaler 2 puff inhalation Q4H PRN Sob &/Or Wheezing 08/18/16 [History Last Taken 12/05/19] atorvastatin 80 mg tablet 80 mg PO QHS heart 11/27/19 [History Last Taken 12/06/19] losartan 50 mg tablet 50 mg PO BID #60 tabs 12/01/19 [Rx Last Taken 12/06/19] amlodipine 10 mg tablet 10 mg PO DAILY #30 tabs 12/08/19 [Rx Last Taken Unknown] furosemide 40 mg tablet 40 mg PO DAILY #30 tabs 12/08/19 [Rx Last Taken Unknown] hydralazine 25 mg tablet 25 mg PO TID #90 tabs 12/08/19 [Rx Last Taken Unknown] menthol 0.44 %-zinc oxide 20.6 % topical ointment 1 applic topical TID redness 12/08/19 [History Last Taken Unknown] docusate sodium 100 mg capsule (Colace) 100 mg PO BID #20 caps 06/26/22 [Rx Last Taken Unknown] polyethylene glycol 3350 17 gram oral powder packet (Miralax) 17 g PO DAILY #100 ea 06/29/22 [Rx Last Taken Unknown] bupropion HCl 75 mg tablet 75 mg PO BID DEPRESSION 08/18/22 [History Last Taken Unknown] multivitamin 1 tab PO DAILY REPLACEMENT 08/18/22 [History Last Taken Unknown] allopurinol 100 mg tablet 100 mg PO DAILY #1 TAB 08/19/22 [Rx Last Taken Unknown] aluminum-mag hydroxide-simethicone 400 mg-400 mg-40 mg/5 mL oral susp (Mag-Al Plus Extra Strength) 30 ml PO Q6H PRN PRN Gastric Burning #0 mL 08/19/22 [Rx Last Taken Unknown] budesonide 0.5 mg/2 mL suspension for nebulization 0.5 mg (2 mL) inhalation BID.RT #0 mL 08/19/22 [Rx Last Taken Unknown] carvedilol 3.125 mg tablet 3.125 mg PO BIDCM #0 tabs 08/19/22 [Rx Last Taken Unknown] dicyclomine 10 mg capsule 20 mg PO Q6H PRN PRN abdominal discomfort #0 caps 08/19/22 [Rx Last Taken Unknown] folic acid 1 mg tablet 1 mg PO DAILY@0800 #0 tabs 08/19/22 [Rx Last Taken Unknown] hydroxyzine pamoate 25 mg capsule 50 mg PO Q4H PRN PRN mild anxiety #0 caps 08/19/22 [Rx Last Taken Unknown] loperamide 2 mg capsule 2 mg PO Q4H PRN PRN LOOSE STOOLS #0 caps 08/19/22 [Rx Last Taken Unknown] menthol 0.44 %-zinc oxide 20.6 % topical ointment (Calmoseptine) 1 applic topical BID #0 grams 08/19/22 [Rx Last Taken Unknown] pantoprazole 40 mg tablet,delayed release 40 mg PO DAILY #0 tabs 08/19/22 [Rx Last Taken Unknown] thiamine HCl (vitamin B1) 100 mg tablet (Vitamin B-1) 100 mg PO DAILYCM #0 tabs 08/19/22 [Rx Last Taken Unknown] vit A 300 mcg-C 200 mg-E 27 mg-lutein 2 mg and minerals tablet (Healthy Eyes) 1 cap PO BID #0 tabs 08/19/22 [Rx Last Taken Unknown] tamsulosin 0.4 mg capsule 0.4 mg PO DAILY #0 caps 08/22/22 [Rx Last Taken Unknown] albuterol sulfate 2.5 mg/3 mL (0.083 %) solution for nebulization 2.5 mg (3 mL) inhalation Q2H PRN PRN Dyspnea, wheezing #0 mL 09/13/22 [Rx Last Taken Unknown] aluminum-mag hydroxide-simethicone 400 mg-400 mg-40 mg/5 mL oral susp (Mag-Al Plus Extra Strength) 30 ml PO Q6H PRN PRN Gastric Burning #0 mL 09/13/22 [Rx Last Taken Unknown] arginine 7 gram-glutam 7 gram-CaHMB 1.5 [id number]-[id number]-min oral pwd pkt (Lance (with collagen)) 1 packet PO BIDCM #0 ea 09/13/22 [Rx Last Taken Unknown] budesonide 0.5 mg/2 mL suspension for nebulization 0.5 mg (2 mL) inhalation BID.RT #0 mL 09/13/22 [Rx Last Taken Unknown] famotidine 20 mg tablet 20 mg PO BID #0 tabs 09/13/22 [Rx Last Taken Unknown] guaifenesin 100 mg/5 mL oral liquid 10 ml PO Q6 #0 mL 09/13/22 [Rx Last Taken Unknown] ipratropium 0.5 mg-albuterol 3 mg (2.5 mg base)/3 mL nebulization soln 3 ml inhalation Q6HWA.RT #0 mL 09/13/22 [Rx Last Taken Unknown] loperamide 2 mg capsule 2 mg PO Q4H PRN PRN LOOSE STOOLS #0 caps 09/13/22 [Rx Last Taken Unknown] nystatin 100,000 unit/gram topical powder (Nyamyc) 1 applic topical BID #0 grams 09/13/22 [Rx Last Taken Unknown] nystatin 100,000 unit/mL oral suspension 500,000 unit (5 mL) PO 4X/DAY 7 days #0 mL 09/13/22 [Rx Last Taken Unknown] sennosides 8.6 mg-docusate sodium 50 mg tablet (Stool Softener-Stimulant Laxative) 2 tab PO DAILY #0 tabs 09/13/22 [Rx Last Taken Unknown] trazodone 100 mg tablet 100 mg PO QHS PRN PRN Insomnia #0 tabs 09/13/22 [Rx Last Taken Unknown] Allergy/AdvReac Type Severity Reaction Status Date / Time iodine Allergy Intermediate Unknown Verified 09/17/22 07:37 Family History Father , 67 Cancer lung Sister , 59 Myocardial infarction Mother , 58 Cancer Pulmonary embolus Brother Cancer throat Surgical History History of abdominal aortic aneurysm repair (06/20/04) History of appendectomy History of tracheostomy Social History household members: none Smoking Status: Former smoker alcohol intake: former details: Current 08/18/22 admission notes 2 weeks sobriety, prior heavy vodka daily. substance use type: does not use ROS ROS ED Review of Systems ROS Unobtainable: due to mental condition and due to mental status EXAM Physical Exam Const Vital Signs: 09/17/22 07:37 09/17/22 07:41 09/17/22 07:47 Temperature 97.8 F 96.7 F L Temperature Source Temporal Temporal Pulse Rate 94 87 Respiratory Rate 97 H 18 Respiratory Effort Normal Respiratory Depth Shallow Respiratory Pattern Tachypnea Blood Pressure 156/112 H 175/95 H Blood Pressure Mean 126 121 Pulse Ox 15 99 Oxygen Delivery Method Ambu-Bag Ambu-Bag Ambu-Bag Oxygen Flow Rate (L/min) 15 15 Fraction of Inspired Oxygen (FIO2) 09/17/22 07:51 09/17/22 08:27 09/17/22 08:36 Temperature Temperature Source Pulse Rate 70 Respiratory Rate 16 Respiratory Effort Respiratory Depth Respiratory Pattern Blood Pressure 142/70 H Blood Pressure Mean 94 Pulse Ox 95 93 98 Oxygen Delivery Method Room Air Trach Collar Room Air Oxygen Flow Rate (L/min) 8 Fraction of Inspired Oxygen (FIO2) 28 09/17/22 08:48 09/17/22 08:43 09/17/22 09:00 Temperature 97.3 F L 97.8 F Temperature Source Temporal Temporal Pulse Rate 68 62 65 Respiratory Rate 16 18 16 Respiratory Effort Respiratory Depth Respiratory Pattern Normal Blood Pressure 140/75 H 122/62 H Blood Pressure Mean 96 82 Pulse Ox 98 97 Oxygen Delivery Method Room Air Room Air Oxygen Flow Rate (L/min) Fraction of Inspired Oxygen (FIO2) 09/17/22 10:02 09/17/22 10:32 09/17/22 10:32 Temperature 97.8 F 97.8 F Temperature Source Temporal Pulse Rate 70 67 Respiratory Rate 20 H 18 Respiratory Effort Respiratory Depth Respiratory Pattern Blood Pressure 171/70 H 171/70 H Blood Pressure Mean 103 Pulse Ox 94 94 94 Oxygen Delivery Method Room Air Oxygen Flow Rate (L/min) 8 Fraction of Inspired Oxygen (FIO2) 21 Positive well nourished and well developed General Appearance ED: well developed HEENT Reports moist mucous membranes Neck supple and no JVD Resp Auscultation: diminished lung sounds diffuse Cardio regular rate Rhythm: abnormal rhythm irregularly irregular GI non-tender, non-distended and no masses Extremity General Extremety ED: Negative for edema or tenderness General Extremity: Negative for edema Neuro CN's II-XII intact bilaterally Sensorium / Orientation: alert MDM MDM MDM Narrative Medical decision making narrative: Differential diagnosis includes displaced tracheostomy tube, pneumonia, pneumothorax, pneumomediastinum, asthma exacerbation, and congestive heart failure. EKG will be obtained to assess for cardiac dysrhythmia and cardiac ischemia. Chest x-ray will be obtained to assess for tracheostomy tube placement, pneumonia, pneumothorax, pneumomediastinum, and congestive heart failure. CBC will be obtained to assess for leukocytosis and anemia. Basic metabolic profile will be obtained to assess for electrolyte abnormality and renal function. High-sensitivity troponin will be obtained to assess for cardiac ischemia. BNP will be obtained to assess for congestive heart failure. Lab Data Attestation: I reviewed the patient's lab results. Lab results narrative: CBC was reviewed and shows a mild leukocytosis of 13.5. Hemoglobin was 10.2 hematocrit 31.0. This is stable compared to previous results. Basic metabolic profile was reviewed and was essentially within normal limits. High-sensitivity troponin was reviewed and was normal. BNP was reviewed and was slightly elevated at 486.7. This is stable compared to previous results. Labs: Laboratory Results - last 24 hr 09/17/22 09/17/22 09/17/22 08:08 08:08 08:08 WBC 13.5 H RBC 3.24 L Hgb 10.2 L Hct 31.0 L MCV 95.7 H MCH 31.5 MCHC 32.9 RDW Std Deviation 48.6 H RDW Coeff of [place] 14.0 Plt Count 401 MPV 10.0 Immature Gran % (Auto) 0.600 Neut % (Auto) 83.0 H Lymph % (Auto) 5.8 L [place] % (Auto) 8.5 Eos % (Auto) 1.7 Baso % (Auto) 0.4 Absolute Neuts (auto) 11.2 H Absolute Lymphs (auto) 0.78 L Nucleated RBC % 0 Sodium 135 L Potassium 3.6 Chloride 102 Carbon Dioxide 26.0 Anion Gap 7 BUN 19 H Creatinine 0.83 Estim Creat Clear Calc 74.87 Est GFR (MDRD) Af Amer 113 Est GFR (MDRD) Non-Af 94 BUN/Creatinine Ratio 22.9 H Glucose 95 Calcium 9.0 Troponin I High Sens 13 B-Natriuretic Peptide 486.7 H ABG Data ABG results: ABG 09/17/22 08:19 Specimen Type ART Sample Site L Radial pH 7.47 H Bicarbonate Actual 25.3 Total CO2 26 Base Excess 2 O2 Saturation 93 L O2 % 21 ABG pCO2 34.5 L ABG pO2 61 L Dougie Test Positive O2 Delivery Device Room Air Radiography Chest X-Ray - ED: 1 View, Read by ED Physician, Read by Radiologist, Cardiomegaly, Right Effusion and Left Effusion Diagnostic Testing: Clinical Impression(s) from Imaging Studies Chest X-Ray 09/17/22 07:48 IMPRESSION: Stable bilateral pleural effusions, cannot exclude associated bibasilar consolidation. Stable cardiomegaly. Electronically Signed: Mikaela Byrd MD at 8:37 EDT , Portable chest x-ray was obtained. There is 1 view. On my independent interpretation, there are bilateral pleural effusions and cardiomegaly. This is stable compared to previous x-rays. Bony thorax is normal. There is no acute process noted. Radiologist also interpreted the x-rays and agrees. EKG Initial EKG: Attestation: I personally reviewed and interpreted this EKG as follows: Interpretation: No Acute Injury Pattern and Atrial Fibrillation (72) Comments: EKG was obtained. On my independent interpretation, it showed a atrial fibrillation with a rate of 72. QRS interval and QTc intervals were normal. [place] was normal. There are no acute ST or T wave changes. Prior EKG tracings: available for review Prior: Unchanged (08/18/2022) Treatment and Re-Evaluation :: Patient was suctioned to the tracheostomy tube. There were 2 large mucous plugs expectorated. Patient is feeling better after this. Patient was given a DuoNeb aerosol. Patient is feeling better on reevaluation. Patient was advised of his findings. Patient will be discharged back to the extended care facility. Patient was instructed to follow-up with his primary care physician in 5 to 7 days. Patient understood and was agreeable with plan. All questions were answered. Discharge Plan Triage Chief Complaint: Shortness of Breath ED Provider: Vinicio Trevizo Dx/Rx/DC Orders Clinical Impression: Dyspnea, COPD (chronic obstructive pulmonary disease) Instructions: ED Dyspnea Prescriptions: No Action atorvastatin 80 mg tablet 80 mg PO QHS Label Comments: TAKE 1 TABLET BY MOUTH EVERY DAY albuterol sulfate 18 GM HFA aerosol inhaler 2 puff inhalation Q4H PRN (Reason: Sob &/Or Wheezing) Label Comments: COPD losartan 50 MG tablet 50 mg PO BID Qty: 60 0RF hydralazine 25 MG tablet 25 mg PO TID Qty: 90 0RF amlodipine 10 MG tablet 10 mg PO DAILY Qty: 30 0RF furosemide 40 MG tablet 40 mg PO DAILY Qty: 30 0RF menthol-zinc oxide 1 APPLIC ointment 1 applic topical TID Protocol: *Topical Application Instructions APPLICATION INSTRUCTIONS: Apply to affected area of buttocks docusate sodium [Colace] 100 mg capsule 100 mg PO BID Qty: 20 0RF polyethylene glycol 3350 [Miralax] 17 gram powder in packet 17 g PO DAILY Qty: 100 1RF multivitamin Tablet 1 tab PO DAILY bupropion HCl 75 mg tablet 75 mg PO BID Label Comments: TAKE 1 TABLET BY MOUTH TWICE A DAY loperamide 2 mg Capsule 2 mg PO Q4H PRN PRN (Reason: LOOSE STOOLS) Qty: 0 0RF thiamine HCl (vitamin B1) [Vitamin B-1] 100 mg Tablet 100 mg PO DAILYCM Qty: 0 0RF carvedilol 3.125 mg Tablet 3.125 mg PO BIDCM Qty: 0 0RF pantoprazole 40 mg Tablet,Delayed Release (Dr/Ec) 40 mg PO DAILY Qty: 0 0RF budesonide 0.5 mg/2 mL Suspension For Nebulization 0.5 mg inhalation BID.RT Qty: 0 0RF folic acid 1 mg Tablet 1 mg PO DAILY@0800 Qty: 0 0RF dicyclomine 10 mg Capsule 20 mg PO Q6H PRN PRN (Reason: abdominal discomfort) Qty: 0 0RF alum-mag hydroxide-simeth [Mag-Al Plus Extra Strength] 400-400-40 mg/5 mL Suspension 30 ml PO Q6H PRN PRN (Reason: Gastric Burning) Qty: 0 0RF hydroxyzine pamoate 25 mg Capsule 50 mg PO Q4H PRN PRN (Reason: mild anxiety) Qty: 0 0RF Healthy Eyes 300 mcg-200 mg-27 mg-2 mg Tablet 1 cap PO BID Qty: 0 0RF menthol-zinc oxide [Calmoseptine] 0.44-20.6 % Ointment 1 applic topical BID Qty: 0 0RF Protocol: *Topical Application Instructions APPLICATION INSTRUCTIONS: BUTTOCKS allopurinol 100 mg tablet 100 mg PO DAILY Qty: 1 0RF tamsulosin 0.4 mg Capsule 0.4 mg PO DAILY Qty: 0 0RF nystatin 100,000 unit/mL Suspension 500,000 unit PO 4X/DAY 7 Days Qty: 0 0RF ipratropium-albuterol 0.5 mg-3 mg(2.5 mg base)/3 mL Solution For Nebulization 3 ml inhalation Q6HWA.RT Qty: 0 0RF albuterol sulfate 2.5 mg /3 mL (0.083 %) Solution For Nebulization 2.5 mg inhalation Q2H PRN PRN (Reason: Dyspnea, wheezing) Qty: 0 0RF loperamide 2 mg Capsule 2 mg PO Q4H PRN PRN (Reason: LOOSE STOOLS) Qty: 0 0RF sennosides-docusate sodium [Stool Softener-Stimulant Laxat] 8.6-50 mg Tablet 2 tab PO DAILY Qty: 0 0RF guaifenesin 100 mg/5 mL Liquid 10 ml PO Q6 Qty: 0 0RF famotidine 20 mg Tablet 20 mg PO BID Qty: 0 0RF trazodone 100 mg Tablet 100 mg PO QHS PRN PRN (Reason: Insomnia) Qty: 0 0RF budesonide 0.5 mg/2 mL Suspension For Nebulization 0.5 mg inhalation BID.RT Qty: 0 0RF nystatin [Nyamyc] 100,000 unit/gram Powder 1 applic topical BID Qty: 0 0RF Protocol: *Topical Application Instructions APPLICATION INSTRUCTIONS: scrotum and groin alum-mag hydroxide-simeth [Mag-Al Plus Extra Strength] 400-400-40 mg/5 mL Suspension 30 ml PO Q6H PRN PRN (Reason: Gastric Burning) Qty: 0 0RF Lance (with collagen) 7-7-1.5 gram Powder In Packet 1 packet PO BIDCM Qty: 0 0RF Primary Care Provider: Maninder Malcolm Referrals: Maninder Malcolm, PA [Primary Care Provider] - 3-5 Days Disposition Disposition: Retirement Facility Discharge Location: [facility] [place] Discharge Date/Time: 09/17/22 10:41
[2022-09-17 08:25] LABS: Allen Test Positive; Base Excess 2 mmol/L (-2 to +2); Bicarbonate 25.3 mmol/L (22-26); Blood Gas Specimen Type ART; FI02 21; O2 Delivery Device Room Air; PO2 61 mmHG (75-100); SITE L Radial; SO2 93 % (95-99); Total Carbon Dioxide 26 mmol/L; pCO2 34.5 mmHg (35-45); pH 7.47 (7.35-7.45)
[2022-09-17 08:27] LABS: Absolute Lymphocyte Count 0.78 X10^3/uL (0.83-4.51); Absolute Neutrophil Count 11.2 X10^3/uL (2.0-7.7); Basophil# 0.06 X10^3/uL; Basophil% 0.4 % (0-1); Eosinophil# 0.23 X10^3/uL; Eosinophils% 1.7 % (0-5); Hemoglobin 10.2 g/dL (13.0-16.5); Lymphocyte # 0.78 X10^3/ul (0.83-4.51); Lymphocyte % 5.8 % (19-41); Mean Corp Hgb Conc 32.9 g/dL (32-36); Mean Corpuscular Hgb 31.5 pg (27.0-32.0); Mean Corpuscular Volume 95.7 fL (80-94); Monocyte# 1.14 X10^3/uL; Monocyte% 8.5 % (0-10); NRBC Flagged by Analyzer 0 % (0-5); Neutrophil # 11.17 X10^3/uL (2.7-7.7); Platelet Count 401 K/mm3 (150-450); RBC Distribution Width SD 48.6 fl (35.1-43.9); Red Blood Count 3.24 M/mm3 (4.6-6.2); White Blood Count 13.5 K/mm3 (4.4-11.0)
[2022-09-17] MEDS: Ipratropium/Albuterol Sulfate 3 ML AMPUL.NEB INHALATION (08:42)
[2022-09-17 08:45] LABS: Anion Gap 7 (5-15); BUN 19 mg/dL (7-18); BUN/Creat Ratio 22.9 RATIO (10-20); Chloride 102 mmol/L (98-107); Creatinine, Serum 0.83 mg/dL (0.70-1.30); EST Glomerular Filtration Rate 94 mL/min (>60); Est Glom Filt Rate - Afr Amer 113 mL/min (>60); Estimated Creatinine Clearance 74.87 ml/min; Glucose 95 mg/dL (74-106); Potassium 3.6 mmol/L (3.5-5.1); Sodium Level 135 mmol/L (136-145); Troponin-I HS 13 pg/mL (3.0-78.0)
[2022-09-17 08:48] LABS: BNP,B-Type NATRIURETIC PEPTIDE 486.7 pg/mL (0-100)
--- NOTE | 2022-09-17 10:39 | ED.RN ---
REPORT CALLED TO [facility]
== END 2022-09-17 10:41 ==
PROVIDERS: Emergency Provider Emergency Medicine; PCP Physician Assistant; Visit Provider Emergency Medicine
DX: R06.00 Dyspnea, unspecified (principal); J44.9 Chronic obstructive pulmonary disease, unspecified; I50.33 Acute on chronic diastolic (congestive) heart failure; I25.10 Atherosclerotic heart disease of native coronary artery without angina pectoris; Z86.718 Personal history of other venous thrombosis and embolism; Z86.73 Personal history of transient ischemic attack (TIA), and cerebral infarction without residual deficits; Z87.891 Personal history of nicotine dependence
CPT/HCPCS: 36600; 71045; 80048; 82803; 83880; 84484; 85025; 93005; 99252; 99285; G0463

== ENCOUNTER 2022-09-19 02:45 | Emergency (ER) | payer MEDICARE, BC, SELFPAY ==
[2022-09-19 02:46] VITALS: BP 187/90; PULSE 54; RESP 16; TEMP 36.4; O2SAT 100; BMI 35.2
--- NOTE | 2022-09-19 04:22 | EX.ED.GENINJ ---
HPI History of Present Illness Chief Complaint: Other, Pain/Inj Informant: EMS Narrative Narrative: [facility] being pulled by patient. History of laryngeal cancer. Patient decreased verbal speech however can follow commands and nod. From records seen 2 days ago for incidental pulling from the abdomen is increasing secretions there is mucous plugging. This was cleared he was sent back. Also noted from records his admission of few weeks ago in the hospital he was sent from outside hospital with hypoxia with tracheostomy tube placed due to this. He had increasing secretions. He had pneumonia and is being treated. From pulmonology notes, he will likely need the tracheostomy tube 1 to 2 months. Prior similar symptoms: Yes PFSH [facility] Medical History Abdominal aortic aneurysm (AAA) Acute on chronic diastolic (congestive) heart failure (12/06/19) Alcohol abuse Alcohol dependence Anxiety and depression Watkins's cyst of knee Bilateral carotid artery stenosis BPH (benign prostatic hyperplasia) Carotid artery bruit Chest pain Chronic atrial fibrillation Chronic right shoulder pain Claudication COPD (chronic obstructive pulmonary disease) Cough Dehydration DVT (deep venous thrombosis) Erectile dysfunction Essential hypertension Former smoker Frequent falls Gout History of laryngeal cancer History of left heart catheterization (05/2004) History of myocardial infarction History of nephrolithiasis HLD (hyperlipidemia) Hyperkalemia Hypertension Hypertensive emergency (12/06/19) Hypomagnesemia Hyponatremia Insomnia MSSA (methicillin susceptible Staphylococcus aureus) infection Near syncope Nonobstructive atherosclerosis of coronary artery Panlobular emphysema Peripheral vascular occlusive disease Rheumatoid arthritis Secondary pulmonary arterial hypertension SOB (shortness of breath) Stroke/cerebrovascular accident Thrombocytopenia TIA (transient ischemic attack) Vitreous hemorrhage of right eye Home Medications albuterol sulfate 90 mcg/actuation aerosol inhaler 2 puff inhalation Q4H PRN Sob &/Or Wheezing 08/18/16 [History Last Taken 12/05/19] atorvastatin 80 mg tablet 80 mg PO QHS heart 11/27/19 [History Last Taken 12/06/19] losartan 50 mg tablet 50 mg PO BID #60 tabs 12/01/19 [Rx Last Taken 12/06/19] amlodipine 10 mg tablet 10 mg PO DAILY #30 tabs 12/08/19 [Rx Last Taken Unknown] furosemide 40 mg tablet 40 mg PO DAILY #30 tabs 12/08/19 [Rx Last Taken Unknown] hydralazine 25 mg tablet 25 mg PO TID #90 tabs 12/08/19 [Rx Last Taken Unknown] menthol 0.44 %-zinc oxide 20.6 % topical ointment 1 applic topical TID redness 12/08/19 [History Last Taken Unknown] docusate sodium 100 mg capsule (Colace) 100 mg PO BID #20 caps 06/26/22 [Rx Last Taken Unknown] polyethylene glycol 3350 17 gram oral powder packet (Miralax) 17 g PO DAILY #100 ea 06/29/22 [Rx Last Taken Unknown] bupropion HCl 75 mg tablet 75 mg PO BID DEPRESSION 08/18/22 [History Last Taken Unknown] multivitamin 1 tab PO DAILY REPLACEMENT 08/18/22 [History Last Taken Unknown] allopurinol 100 mg tablet 100 mg PO DAILY #1 TAB 08/19/22 [Rx Last Taken Unknown] aluminum-mag hydroxide-simethicone 400 mg-400 mg-40 mg/5 mL oral susp (Mag-Al Plus Extra Strength) 30 ml PO Q6H PRN PRN Gastric Burning #0 mL 08/19/22 [Rx Last Taken Unknown] budesonide 0.5 mg/2 mL suspension for nebulization 0.5 mg (2 mL) inhalation BID.RT #0 mL 08/19/22 [Rx Last Taken Unknown] carvedilol 3.125 mg tablet 3.125 mg PO BIDCM #0 tabs 08/19/22 [Rx Last Taken Unknown] dicyclomine 10 mg capsule 20 mg PO Q6H PRN PRN abdominal discomfort #0 caps 08/19/22 [Rx Last Taken Unknown] folic acid 1 mg tablet 1 mg PO DAILY@0800 #0 tabs 08/19/22 [Rx Last Taken Unknown] hydroxyzine pamoate 25 mg capsule 50 mg PO Q4H PRN PRN mild anxiety #0 caps 08/19/22 [Rx Last Taken Unknown] loperamide 2 mg capsule 2 mg PO Q4H PRN PRN LOOSE STOOLS #0 caps 08/19/22 [Rx Last Taken Unknown] menthol 0.44 %-zinc oxide 20.6 % topical ointment (Calmoseptine) 1 applic topical BID #0 grams 08/19/22 [Rx Last Taken Unknown] pantoprazole 40 mg tablet,delayed release 40 mg PO DAILY #0 tabs 08/19/22 [Rx Last Taken Unknown] thiamine HCl (vitamin B1) 100 mg tablet (Vitamin B-1) 100 mg PO DAILYCM #0 tabs 08/19/22 [Rx Last Taken Unknown] vit A 300 mcg-C 200 mg-E 27 mg-lutein 2 mg and minerals tablet (Healthy Eyes) 1 cap PO BID #0 tabs 08/19/22 [Rx Last Taken Unknown] tamsulosin 0.4 mg capsule 0.4 mg PO DAILY #0 caps 08/22/22 [Rx Last Taken Unknown] albuterol sulfate 2.5 mg/3 mL (0.083 %) solution for nebulization 2.5 mg (3 mL) inhalation Q2H PRN PRN Dyspnea, wheezing #0 mL 09/13/22 [Rx Last Taken Unknown] aluminum-mag hydroxide-simethicone 400 mg-400 mg-40 mg/5 mL oral susp (Mag-Al Plus Extra Strength) 30 ml PO Q6H PRN PRN Gastric Burning #0 mL 09/13/22 [Rx Last Taken Unknown] arginine 7 gram-glutam 7 gram-CaHMB 1.5 [id number] oral pwd pkt (Lance (with collagen)) 1 packet PO BIDCM #0 ea 09/13/22 [Rx Last Taken Unknown] budesonide 0.5 mg/2 mL suspension for nebulization 0.5 mg (2 mL) inhalation BID.RT #0 mL 09/13/22 [Rx Last Taken Unknown] famotidine 20 mg tablet 20 mg PO BID #0 tabs 09/13/22 [Rx Last Taken Unknown] guaifenesin 100 mg/5 mL oral liquid 10 ml PO Q6 #0 mL 09/13/22 [Rx Last Taken Unknown] ipratropium 0.5 mg-albuterol 3 mg (2.5 mg base)/3 mL nebulization soln 3 ml inhalation Q6HWA.RT #0 mL 09/13/22 [Rx Last Taken Unknown] loperamide 2 mg capsule 2 mg PO Q4H PRN PRN LOOSE STOOLS #0 caps 09/13/22 [Rx Last Taken Unknown] nystatin 100,000 unit/gram topical powder (Nyamyc) 1 applic topical BID #0 grams 09/13/22 [Rx Last Taken Unknown] nystatin 100,000 unit/mL oral suspension 500,000 unit (5 mL) PO 4X/DAY 7 days #0 mL 09/13/22 [Rx Last Taken Unknown] sennosides 8.6 mg-docusate sodium 50 mg tablet (Stool Softener-Stimulant Laxative) 2 tab PO DAILY #0 tabs 09/13/22 [Rx Last Taken Unknown] trazodone 100 mg tablet 100 mg PO QHS PRN PRN Insomnia #0 tabs 09/13/22 [Rx Last Taken Unknown] Allergy/AdvReac Type Severity Reaction Status Date / Time iodine Allergy Intermediate Unknown Verified 09/17/22 07:37 Family History Father , 67 Cancer lung Sister , 59 Myocardial infarction Mother , 58 Cancer Pulmonary embolus Brother Cancer throat Surgical History History of abdominal aortic aneurysm repair (06/20/04) History of appendectomy History of tracheostomy Social History household members: none Smoking Status: Former smoker alcohol intake: former details: Current 08/18/22 admission notes 2 weeks sobriety, prior heavy vodka daily. substance use type: does not use ROS ROS ED Review of Systems ROS Unobtainable: other Details: Limited due to decrease verbal speech. Constitutional Constitutional ED: Denies fever(s) Cardiovascular Cardiovascular: Denies chest pain Respiratory/Chest Respiratory/Chest: Denies cough Gastrointestinal Gastrointestinal: Denies diarrhea, nausea or vomiting EXAM Physical Exam Const Vital Signs: 09/19/22 02:46 09/19/22 06:44 Temperature 97.5 F L Temperature Source Temporal Pulse Rate 54 L 70 Respiratory Rate 16 15 Blood Pressure 187/90 H 165/80 H Blood Pressure Mean 122 Pulse Ox 100 100 Oxygen Delivery Method Non-Rebreather Oxygen Flow Rate (L/min) 15 Positive well nourished and well developed Constitutional Narrative: Nontoxic following commands General Appearance ED: well developed and NAD HEENT Reports moist mucous membranes normocephalic and atraumatic Neck no lymphadenopathy and supple Neck Narrative: Large orifice anterior neck, no secretions no bleeding. No stridor. General: Negative for tenderness Chest Wall Chest: Negative for tenderness Resp normal respiratory effort and normal air movement Effort and Inspection: symmetric chest movement; Negative for respiratory distress Cardio regular rate, regular rhythm and no murmurs Peripheral Pulses: pulses 2+ throughout GI normal to inspection, nondistended, normoactive bowel sounds and non-tender Palpation: Negative for guarding or rebound tenderness present Back/Spine no CVA tenderness and no thoracic nor lumbar tenderness Extremity Extremity Narrative: Contractures lower extremities with healed pads. Able to wiggle his feet and grasp with hands. General Extremety ED: Negative for edema or tenderness General Extremity: Negative for edema Neuro Neuro Narrative: Awake following commands Sensorium / Orientation: awake and alert MDM MDM MDM Narrative Medical decision making narrative: Interventions / MDM: Differential diagnosis: Diagnosis considered but do not suspect: N/A My EKG interpretation: N/A Imaging independently reviewed and interpreted by myself: N/A External documents reviewed: N/A Test considered but not ordered:N/A ED course: Patient no distress he was placed on a nonrebreather over the laryngeal orifice. After reviewing records findings that this was placed due to hypoxia likely for positive pressure ventilation. History of laryngeal cancer and prior to August and visits did not require oxygenation. I had nursing call to facility apparently they do hook him up to the ventilator at night. With this being used, 8.5 Tunisian Shiley cuffed trach tube was placed and secured. There were secretions initially that was cleared. Patient be discharged back to facility for continued care. Re-evaluation: stable Disposition discussed with patient/family/significant other: Case discussed with consulting clinician: N/A Discharge Plan Triage Chief Complaint: Other, Pain/Inj ED Provider: Edilberto Brooks Dx/Rx/DC Orders Clinical Impression: Tracheostomy malfunction, History of cancer of larynx Prescriptions: No Action atorvastatin 80 mg tablet 80 mg PO QHS Label Comments: TAKE 1 TABLET BY MOUTH EVERY DAY albuterol sulfate 18 GM HFA aerosol inhaler 2 puff inhalation Q4H PRN (Reason: Sob &/Or Wheezing) Label Comments: COPD losartan 50 MG tablet 50 mg PO BID Qty: 60 0RF hydralazine 25 MG tablet 25 mg PO TID Qty: 90 0RF amlodipine 10 MG tablet 10 mg PO DAILY Qty: 30 0RF furosemide 40 MG tablet 40 mg PO DAILY Qty: 30 0RF menthol-zinc oxide 1 APPLIC ointment 1 applic topical TID Protocol: *Topical Application Instructions APPLICATION INSTRUCTIONS: Apply to affected area of buttocks docusate sodium [Colace] 100 mg capsule 100 mg PO BID Qty: 20 0RF polyethylene glycol 3350 [Miralax] 17 gram powder in packet 17 g PO DAILY Qty: 100 1RF multivitamin Tablet 1 tab PO DAILY bupropion HCl 75 mg tablet 75 mg PO BID Label Comments: TAKE 1 TABLET BY MOUTH TWICE A DAY loperamide 2 mg Capsule 2 mg PO Q4H PRN PRN (Reason: LOOSE STOOLS) Qty: 0 0RF thiamine HCl (vitamin B1) [Vitamin B-1] 100 mg Tablet 100 mg PO DAILYCM Qty: 0 0RF carvedilol 3.125 mg Tablet 3.125 mg PO BIDCM Qty: 0 0RF pantoprazole 40 mg Tablet,Delayed Release (Dr/Ec) 40 mg PO DAILY Qty: 0 0RF budesonide 0.5 mg/2 mL Suspension For Nebulization 0.5 mg inhalation BID.RT Qty: 0 0RF folic acid 1 mg Tablet 1 mg PO DAILY@0800 Qty: 0 0RF dicyclomine 10 mg Capsule 20 mg PO Q6H PRN PRN (Reason: abdominal discomfort) Qty: 0 0RF alum-mag hydroxide-simeth [Mag-Al Plus Extra Strength] 400-400-40 mg/5 mL Suspension 30 ml PO Q6H PRN PRN (Reason: Gastric Burning) Qty: 0 0RF hydroxyzine pamoate 25 mg Capsule 50 mg PO Q4H PRN PRN (Reason: mild anxiety) Qty: 0 0RF Healthy Eyes 300 mcg-200 mg-27 mg-2 mg Tablet 1 cap PO BID Qty: 0 0RF menthol-zinc oxide [Calmoseptine] 0.44-20.6 % Ointment 1 applic topical BID Qty: 0 0RF Protocol: *Topical Application Instructions APPLICATION INSTRUCTIONS: BUTTOCKS allopurinol 100 mg tablet 100 mg PO DAILY Qty: 1 0RF tamsulosin 0.4 mg Capsule 0.4 mg PO DAILY Qty: 0 0RF nystatin 100,000 unit/mL Suspension 500,000 unit PO 4X/DAY 7 Days Qty: 0 0RF ipratropium-albuterol 0.5 mg-3 mg(2.5 mg base)/3 mL Solution For Nebulization 3 ml inhalation Q6HWA.RT Qty: 0 0RF albuterol sulfate 2.5 mg /3 mL (0.083 %) Solution For Nebulization 2.5 mg inhalation Q2H PRN PRN (Reason: Dyspnea, wheezing) Qty: 0 0RF loperamide 2 mg Capsule 2 mg PO Q4H PRN PRN (Reason: LOOSE STOOLS) Qty: 0 0RF sennosides-docusate sodium [Stool Softener-Stimulant Laxat] 8.6-50 mg Tablet 2 tab PO DAILY Qty: 0 0RF guaifenesin 100 mg/5 mL Liquid 10 ml PO Q6 Qty: 0 0RF famotidine 20 mg Tablet 20 mg PO BID Qty: 0 0RF trazodone 100 mg Tablet 100 mg PO QHS PRN PRN (Reason: Insomnia) Qty: 0 0RF budesonide 0.5 mg/2 mL Suspension For Nebulization 0.5 mg inhalation BID.RT Qty: 0 0RF nystatin [Nyamyc] 100,000 unit/gram Powder 1 applic topical BID Qty: 0 0RF Protocol: *Topical Application Instructions APPLICATION INSTRUCTIONS: scrotum and groin alum-mag hydroxide-simeth [Mag-Al Plus Extra Strength] 400-400-40 mg/5 mL Suspension 30 ml PO Q6H PRN PRN (Reason: Gastric Burning) Qty: 0 0RF Lance (with collagen) 7-7-1.5 gram Powder In Packet 1 packet PO BIDCM Qty: 0 0RF Primary Care Provider: Maninder Malcolm Referrals: Maninder Malcolm PA [Primary Care Provider] - Activity Restrictions/Additional Instructions: Replace tracheostomy tube with 8.5 Tunisian size. Disposition Disposition: Home, Self Care Discharge Date/Time: 09/19/22 07:09
[2022-09-19 06:44] VITALS: BP 165/80; PULSE 70; RESP 15; O2SAT 100
== END 2022-09-19 07:09 | disposition home or self-care (01) ==
PROVIDERS: Emergency Provider Emergency Medicine; PCP Physician Assistant; Visit Provider Emergency Medicine
DX: J95.03 Malfunction of tracheostomy stoma (principal); I11.0 Hypertensive heart disease with heart failure; I50.33 Acute on chronic diastolic (congestive) heart failure; R09.02 Hypoxemia; M79.631 Pain in right forearm; I25.10 Atherosclerotic heart disease of native coronary artery without angina pectoris; Z86.718 Personal history of other venous thrombosis and embolism; Z86.73 Personal history of transient ischemic attack (TIA), and cerebral infarction without residual deficits; Z87.891 Personal history of nicotine dependence
CPT/HCPCS: 93971; 99282

== ENCOUNTER → 2022-09-19 | Outpatient (CLI) | payer MEDICARE, BC, SELFPAY ==
--- NOTE | 2022-09-19 14:36 | VDUE_ITS ---
Reason For Study: Pain Right Proximal Left Proximal Right jugular vein is spontaneous, widely Left subclavian vein is spontaneous, widely patent, phasic, with no intraluminal patent, phasic, with no intraluminal echogenicity noted. echogenicity noted. Right subclavian vein is spontaneous, widely patent, phasic, with no intraluminal echogenicity noted. Right Lower Arm Right radial vein is compressible. Right ulnar vein is compressible. Right Arm Right axillary vein is spontaneous, patent, phasic, competent, compressible and demonstrates augmentation. Right brachial vein is compressible. Right cephalic vein is compressible. Right basilic vein is compressible. Patient Safety Technically difficult study due to patient positioning. Stat results faxed to the office of Ulises RUDOLPH. VL/Venous Duplex US, Unilateral Interpretation Summary No evidence for acute deep venous thrombosis[right] upper extremity with patent and compressible cephalic and basilic veins. Normal flow patterns left subclavian vein Ordering Physician: Maninder Malcolm Referring Physician: Maninder Malcolm Performed By: Bryan Richards RVT ???
== END | disposition home or self-care (01) ==
LOC: CVS 14:35
PROVIDERS: PCP Physician Assistant; Referring Provider Physician Assistant; Visit Provider Physician Assistant
DX: M79.631 Pain in right forearm (principal)
CPT/HCPCS: 93971